=== PATIENT | female | born 1945 | race Caucasian/White ===

== ENCOUNTER → 2017-12-13 | Outpatient (REF) | payer MEDICARE, BC ==
[2017-12-13 19:11] LABS: APPEARANCE, URINE CLEAR (CLEAR); BACTERIA, URINE AUTO NEGATIVE (NEGATIVE); BILIRUBIN, URINE AUTO NEGATIVE (NEGATIVE); BLOOD, URINE BLOOD NEGATIVE (NEGATIVE); COLOR, URINE STRAW (YELLOW); GLUCOSE, URINE (UA) AUTO NEGATIVE (NEGATIVE); KETONE, URINE AUTO NEGATIVE (NEGATIVE); LEUKOCYTE ESTERASE, URINE AUTO NEGATIVE (NEGATIVE); MUCUS, URINE SMALL (NEGATIVE); NITRITE, URINE AUTO NEGATIVE (NEGATIVE); PROTEIN, URINE AUTO NEGATIVE (NEGATIVE); RBC, URINE AUTO 0 /HPF (0-3); SPECIFIC GRAVITY URINE AUTO 1.006 (1.002-1.035); SQUAMOUS EPITHELIAL CELL UR AU 0 /HPF (0-6); UROBILINOGEN, URINE AUTO 0.2 mg/dL (0.0-2.0); WBC, URINE AUTO 2 /HPF (0-3)
== END ==
LOC: M SMT 16:49
DX: N20.0 Calculus of kidney (principal)
CPT/HCPCS: 81001

== ENCOUNTER → 2018-01-08 | Outpatient (REF) | payer MEDICARE, BC, OTHER ==
[2018-01-08 18:50] LABS: APPEARANCE, URINE CLEAR (CLEAR); BACTERIA, URINE AUTO 1+ (NEGATIVE); BILIRUBIN, URINE AUTO NEGATIVE (NEGATIVE); BLOOD, URINE BLOOD NEGATIVE (NEGATIVE); COLOR, URINE STRAW (YELLOW); GLUCOSE, URINE (UA) AUTO NEGATIVE (NEGATIVE); KETONE, URINE AUTO NEGATIVE (NEGATIVE); LEUKOCYTE ESTERASE, URINE AUTO NEGATIVE (NEGATIVE); NITRITE, URINE AUTO NEGATIVE (NEGATIVE); PROTEIN, URINE AUTO NEGATIVE (NEGATIVE); RBC, URINE AUTO 0 /HPF (0-3); SPECIFIC GRAVITY URINE AUTO 1.003 (1.002-1.035); SQUAMOUS EPITHELIAL CELL UR AU 0 /HPF (0-6); UROBILINOGEN, URINE AUTO 0.2 mg/dL (0.0-2.0); WBC, URINE AUTO 2 /HPF (0-3)
== END ==
LOC: M SMT 17:11
DX: N20.0 Calculus of kidney (principal); R35.0 Frequency of micturition
CPT/HCPCS: 81001

== ENCOUNTER → 2018-01-14 | Outpatient (CLI) | payer MEDICARE, BC, OTHER | LOC: M RAD 13:35 | DX: N20.0 Calculus of kidney (principal) | CPT/HCPCS: 74176 ==

== ENCOUNTER 2018-03-07 10:49 | Day surgery (SDC) | payer MEDICARE, BC, OTHER ==
[2018-03-07] MEDS: LR 1,000 ML IV (11:50)
[2018-03-07] MEDS ORDERED: SCOPOLAMINE 1MG TRANSDERMAL PATCH As Ordered (12:04)
[2018-03-07] MEDS: SCOPOLAMINE 1MG TRANSDERMAL PATCH TOP (12:08)
[2018-03-07] MEDS ORDERED: CONRAY-60 60% 50ML VIAL (Q9961) As Ordered (12:41)
[2018-03-07] MEDS: CLINDAMYCIN 900 MG in APPROPRIATE DILUENT 1 EA IV (13:09)
[2018-03-07] MEDS ORDERED: GLYCOPYRROLATE INJ 0.2 MG/ML 2 ML VIAL As Ordered (13:10)
[2018-03-07] MEDS ORDERED: ePHEDrine SULFATE 25 MG/5 ML(5MG/ML) SYRINGE As Ordered (13:13)
[2018-03-07] MEDS ORDERED: ONDANSETRON 4MG/2ML VIAL (J2405) As Ordered ×2 (13:14→13:27)
[2018-03-07] MEDS ORDERED: dexameTHASONE 4 MG/ML 1ML VIAL (J1100) As Ordered (13:27)
[2018-03-07] MEDS ORDERED: MIDAZOLAM INJ 2 MG/2 ML VIAL (J2250) As Ordered (13:27)
[2018-03-07] MEDS ORDERED: LIDOCAINE 2% INJ 100 MG/5 ML SDV (FOR ANES.) As Ordered (13:27)
[2018-03-07] MEDS ORDERED: PROPOFOL 200 MG/20 ML VIAL As Ordered (13:27)
[2018-03-07] MEDS ORDERED: fentaNYL 100 MCG/2 ML INJECTION (J3010) As Ordered (13:27)
[2018-03-07] MEDS: oxyBUTYnin 5 MG TAB PO (14:29)
[2018-03-07] MEDS ORDERED: PERCOCET 5MG/325MG TAB PO ×3 (14:30)
[2018-03-07] MEDS ORDERED: HYDROMORPHONE HCL 0.5 MG/ 0.5 ML SYRINGE (J1170 PER 1) IV (14:30)
[2018-03-07] MEDS ORDERED: ONDANSETRON 4MG/2ML VIAL (J2405) IV (14:30)
[2018-03-07] MEDS ORDERED: LR 1,000 ML IV (14:30)
[2018-03-07] MEDS ORDERED: fentaNYL 100 MCG/2 ML INJECTION (J3010) IV (14:30)
== END 2018-03-07 16:50 | disposition home or self-care (01) ==
LOC: M SDC 10:49
DX: N20.0 Calculus of kidney (principal); N13.1 Hydronephrosis with ureteral stricture, not elsewhere classified; I25.10 Atherosclerotic heart disease of native coronary artery without angina pectoris; I10 Essential (primary) hypertension; Z98.61 Coronary angioplasty status; G47.30 Sleep apnea, unspecified; Z79.82 Long term (current) use of aspirin; Z79.899 Other long term (current) drug therapy
CPT/HCPCS: 52352

== ENCOUNTER → 2021-02-03 | Outpatient (CLI) | payer MEDICARE, BC, OTHER ==
[~2021-02-03] MED LIST: ASPI81TA86 PO; DRIS50003 PO; FLOM0.4C39 PO; HYDR-3490 PO; ISOVUE-370 76% 100ML VIAL As Ordered ONE; LOVA1CAP17 PO; METO1TAB87 PO; OMEP-218 PO; OSTETAB4 PO; SIMV20TA22 PO; VITA500C24 PO
--- NOTE | 2021-02-04 19:57 | REPVR ---
PROCEDURE INFORMATION: Exam: CT Maxillofacial With Contrast, Sinus Exam date and time: 02/03/2021 11:25 AM Age: 75 years old Clinical indication: Condition or disease; Other: Mass; Additional info: Nasal pharyngeal mass TECHNIQUE: Imaging protocol: CT Maxillofacial with intravenous contrast. Focus on the sinuses. Radiation optimization: All CT scans at this facility use at least one of these dose optimization techniques: automated exposure control; mA and/or kV adjustment per patient size (includes targeted exams where dose is matched to clinical indication); or iterative reconstruction. Contrast material: ISOVUE 370; Contrast volume: 75 ml; Contrast route: INTRAVENOUS (IV); COMPARISON: No relevant prior studies available. FINDINGS: Frontal sinuses: Normal. No air-fluid levels. Ethmoid air cells: Minimal ethmoid sinus mucosal thickening. Sphenoid sinuses: Normal. No air-fluid levels. Maxillary sinuses: Minimal bilateral maxillary sinus mucosal thickening, right greater than left. Nasal cavity/Septum: Mild deviation of the nasal septum to the left centered in the midportion with small osseous spur at the apex there is near complete if not complete blockage of the right posterior nasal passageway. The left nasal passageway remains patent. Patent ostiomeatal complexes bilaterally. Orbital cavity: Orbits are normal. Globes are unremarkable. Bones/joints: Unremarkable. Soft tissues: Unremarkable. Auditory system: Partial opacification of the right middle ear cavity. Mastoid air cells: Opacification of many right mastoid air cells. Oropharynx: Large nasopharyngeal mass which extends just into the right oropharynx with some thickening and extension into the right aspect of the soft palate. There is retropharyngeal extension across midline. There is mild displacement of the airway to the left and some anterior extension into the posterior aspect of the right nasal passageway and to a lesser degree the left. Brain: The mass measures approximately 3.4 x 6.0 x 3.5 cm and is centered to the right. Vasculature: There is encasement of the distal extracranial right internal carotid artery. The left internal carotid artery extends along the margin of the mass. IMPRESSION: 1. 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 There is anterior extension into the nasal passageway is, right greater than left and retropharyngeal extension across midline to the left. There is extension into the right aspect of the soft palate and just into the cephalad aspect of the oropharynx on the right. 2. Opacification of right mastoid air cells and partial opacification of the right middle ear cavity which is likely related to involvement of the eustachian tube. There is near complete if not complete obstruction of the posterior right nasal passageway. 3. Minimal bilateral maxillary and ethmoid sinus disease. Electronically signed by: Ar Ahn On 02/04/2021 19:57:25 PM
== END ==
LOC: M RAD 10:31
PROVIDERS: ATTEND Otolaryngology
DX: J34.9 Unspecified disorder of nose and nasal sinuses (principal)
CPT/HCPCS: 70487; Q9967

== ENCOUNTER → 2021-02-08 | Outpatient (CLI) | payer MEDICARE, BC, OTHER ==
[~2021-02-08] MED LIST changes: -ISOVUE-370 76% 100ML VIAL As Ordered ONE
== END ==
LOC: M LABSMTC 11:45
PROVIDERS: ATTEND Anesthesiology
DX: Z01.812 Encounter for preprocedural laboratory examination (principal)

== ENCOUNTER 2021-02-10 11:43 | Observation (INO) | payer MEDICARE, BC, OTHER ==
[~2021-02-10] VITALS: Ht 157.5 cm; Wt 64.0 kg
[~2021-02-10 11:43] MED LIST changes: +PROBCAP14 PO
[2021-02-10] MEDS ORDERED: HYDR-3713 PO (12:01)
[2021-02-10 12:42] LABS: BASO % 0.6 % (0.0-1.0); EOS # 0.1 10^3/uL (0.0-0.5); HEMATOCRIT 39.2 % (36.0-47.0); HEMOGLOBIN 13.5 g/dl (12.0-15.5); LYMPH # 1.6 10^3/uL (1.5-5.0); LYMPH % 32.5 % (24.0-44.0); MEAN CORPUSCULAR HEMOGLOBIN 31.9 pg (27.0-33.0); MEAN CORPUSCULAR HGB CONC 34.4 g/dl (32.0-36.5); MEAN CORPUSCULAR VOLUME 92.7 fl (80.0-96.0); MONO # 0.5 10^3/uL (0.0-0.8); MONO % 9.8 % (2.0-8.0); NEUTROPHILS # 2.7 10^3/uL (1.5-8.5); NEUTROPHILS % 55.9 % (36.0-66.0); PLATELET COUNT, AUTOMATED 290 10^3/uL (150-450); RED BLOOD COUNT 4.23 10^6/uL (4.00-5.40); WHITE BLOOD COUNT 4.8 10^3/uL (4.0-10.0)
[2021-02-10] MEDS ORDERED: ONDANSETRON 4MG/2ML VIAL IV ONE (12:50)
[2021-02-10 13:05] LABS: ERYTHROCYTE SEDIMENTATION RATE 35 mm/hr (0-30)
[2021-02-10] MEDS: MORPHINE 2 MG/ML 1ML VIAL (J2270) IV ONE ×2 (13:05→13:18)
[2021-02-10 13:13] LABS: ALBUMIN 3.8 GM/DL (3.2-5.2); ALT/SGPT 20 U/L (12-78); BILIRUBIN,DIRECT 0.2 MG/DL (0.0-0.2); C REACTIVE PROTEIN QUANTITATIV < 0.30 MG/DL (0.00-0.30); MAGNESIUM LEVEL 2.2 MG/DL (1.8-2.4); TOTAL PROTEIN 7.5 GM/DL (6.4-8.2)
[2021-02-10] MEDS ORDERED: fentaNYL 100 MCG/2 ML INJECTION (J3010) IV ONE (13:25)
[2021-02-10 14:26] LABS: BLOOD UREA NITROGEN 13 MG/DL (7-18); CALCIUM LEVEL 8.8 MG/DL (8.8-10.2); CARBON DIOXIDE LEVEL 29 MEQ/L (21-32); CHLORIDE LEVEL 98 MEQ/L (98-107); CREATININE FOR GFR 0.53 MG/DL (0.55-1.30); GLOMERULAR FILTRATION RATE > 60.0 (>39); GLUCOSE, FASTING 109 MG/DL (70-100); POTASSIUM SERUM 3.6 MEQ/L (3.5-5.1); SODIUM LEVEL 132 MEQ/L (136-145)
[2021-02-10] MEDS ORDERED: ASPI81TA26 PO (14:53)
[2021-02-10] MEDS ORDERED: GLUC1TAB58 PO (14:53)
[2021-02-10] MEDS ORDERED: OMEG1CAP85 PO (14:53)
[2021-02-10] MEDS ORDERED: ERGO500029 PO (14:53)
[2021-02-10] MEDS ORDERED: ACETAMINOPHEN TAB 650MG DOSE (2X325MG) PO PRN (15:10)
[2021-02-10] MEDS ORDERED: PILL CUTTER 1 EACH XX PRN (16:10)
[2021-02-10] MEDS ORDERED: ONDANSETRON 4 MG ORAL DISINTEGRATING TAB PO PRN (16:40)
[2021-02-10 17:15] VITALS: BP 119/80
[2021-02-10] MEDS: traMADol 50 MG TAB PO SCH ×2 (18:03→20:43)
--- NOTE | 2021-02-10 18:03 | HPEPDOC ---
General Date of Admission Feb 10, 2021 at 11:44 Date of Service: Feb 10, 2021 Chief Complaint The patient is a 75-year-old female admitted with a reason for visit of Itractable Pain,Nasopharyngeal Mass. Source: Patient, RN/MD History of Present Illness 75-year-old female with past medical history of coronary artery disease status post bypass surgery, carotid artery disease, status post carotid endarterectomy on the right. Left breast cancer status post bilateral mastectomy, hypertension, IVANA was recently diagnosed with large nasopharyngeal mass in the beginning of January 2021 and is planned for biopsy of the mass on 02/13/[address] Silvestre brennan in ENT, presented today for throbbing headache and pain in the back of the nose. Pain was dull, throbbing in nature, 10 x 10 in intensity, radiating to the right ear and more towards the right nose. She was taking hydrocodone for pain for the past 2 days had taken 5 doses, but from last night she was very nauseous and was vomiting all night and could not keep her pain medications down, so came to the emergency room for uncontrolled pain and to get some alternative medications for pain relief. Patient was discussed with ENT. Pain control medications. She did not include any NSAIDs because he couldn't risk the chance of bleeding during the biopsy. Patient responded well to a fentanyl injection in the ED, patient is being admitted for observation and trial of alternative pain medications along with antiemetics. Home Medications Scheduled Ascorbic Acid (Vitamin C) 500 Mg Cap, 500 MG PO DAILY, (Reported) Aspirin (Aspirin EC) 81 Mg Tablet.dr, 81 MG PO DAILY, (Reported) Ergocalciferol (Vitamin D2) (Vitamin D2) 50,000 Units Cap, 50,000 UNITS PO QMONTH, (Reported) 1ST OF THE MONTH Glucosamine/D3/Boswellia Alison (Osteo Bi-Flex Tablet) 1 Each Tablet, 1 TAB PO BID, (Reported) Hydrochlorothiazide (Hydrochlorothiazide) 25 Mg Tab, 25 MG PO DAILY, (Reported) Lactobacillus Acidophilus (Probiotic) 1 Each Capsule, 2 CAP PO DAILY, (Reported) Metoprolol Tartrate (Metoprolol Tartrate) 25 Mg Tab, 25 MG PO BID, (Reported) Stephenson-3 Acid Ethyl Esters (Stephenson-3 Acid Ethyl Esters) 1 Gm Capsule, 2 GM PO BID, (Reported) Omeprazole (Omeprazole) 20 Mg Cap, 20 MG PO 4XWK, (Reported) MON,WED,FRI,SAT Simvastatin (Simvastatin) 20 Mg Tab, 20 MG PO QPM, (Reported) Scheduled PRN Hydrocodone/Acetaminophen (Hydrocodone-Acetamin 5-325 mg) 1 Each Tablet, 1 TAB PO Q6HP PRN for pain, (Reported) Allergies Coded Allergies: Penicillins (Verified Allergy, Intermediate, RASH, 02/10/21) Past Medical History Medical History 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 EUSTACHIANCTUBE< OROPHARYNX PLANNED FOR BX ON 02/13/21 LEFT BREAST CANCER S/P DOUBLE MASTECTOMY CAD s/p CABG CAROTID ARTERY DISEASE S/P RT CAROTID ENDARTERECTOMY MODERATE RIGHT HYDRONEPHROSIS HEMATURIA MICROSCOPIC s/p cystoscopy BROKE LEFT FOOT 1998 BROKE RIGHT SHOULDER/RIGHT PINKY 2009 TUBULAR ADENOMA Of COLON PULMONARY FIBROSIS SLEEP APNEA = CPAP FX LOWER BACK 2013 KIDNEY STONES/ RT URETERAL STONE S/PCystoscopy, right ureteroscopy with basket extraction of stone, right ureteral stent placement 2018 Surgical History DOUBLE MASTECTOMY TRIPLE BYPASS 03/2008 CAROTID ENDARTERECTOMY R SIDE 02/2009 BILATERAL CATARACT 11/2010 COLONOSCOPY AND BX 02/2015 Family History Significant Family History: Cancer, Heart disease, Renal disease FATHER: 45 YRS, BRAIN TUMOR, STROKE MOTHER: 73 YRS, HEART RELATED (BROTHER HAJA): 55YRS OLD, BYPASS SX, DM AND KIDNEY CA (BROTHER THAO): HEART TRANSPLANT AT 54, BRAIN TUMOR=RADIATION TREATMENT. PROSTATE CA, LYMPH NODE CA. (BROTHER RIKKI): BYPASS AT 50, STROKE X2, CAROTID ARTERY SX, COPD.PASSED AT 60YRS (BROTHER ÁLVARO); BYPASS, NEEDED KIDNEY AND LIVER TRANSPLANT, AT 51YRS. ( BROTHER ROSSY); AT 50 HEART PROBLEMS. (SISTER ABBIE); BYPASS, CHF, STROKE, AT 65YRS (SISTER JULIO): PARKINSONS, PASSED AT 74 SUDDENLY, NO AUTOPSY. SON(S): ALIVE, (THAO): QUADRUPLE BY-PASS PATERNAL GRAND MOTHER: 69 YRS, STROKE MATERNAL GRAND MOTHER: 65 YRS, DM Social History * Smoker: non-smoker Alcohol: rarely Drugs: denies A-FIB/CHADSVASC A-FIB History Current/History of A-Fib/PAF?: No Review of Systems Constitutional: Denies: Chills, Fever, Night Sweats Eyes: Denies: Pain, Vision change ENT: Reports: Head Aches, Ear Pain, Sinus Congestion Skin: Denies: Rash, Lesions, Breakdown Pulmonary: Denies: Dyspnea, Cough Cardiovascular: Denies: Chest Pain, Palpitations, Orthopnea, Paroxysmal Noc. Dyspnea, Lt Headedness Gastrointestinal: Reports: Nausea, Vomiting Genitourinary: Denies: Dysuria, Frequency, Incontinence, Retention Hematologic: Denies: Bruising, Bleeding Excessively Physical Examination General Exam: Positive: Alert, Cooperative, No Acute Distress Eye Exam: Positive: PERRLA, Conjunctiva & lids normal, EOMI; Negative: Sclera icteric Neck Exam: Positive: Supple; Negative: JVD, thyromegaly Chest Exam: Positive: Clear to auscultation, Normal air movement Heart Exam: Positive: Bradycardic, Regular Rhythm, Normal S1, Normal S2; Negative: Murmurs, Rubs Telemetry: Positive: Sinus, Bradycardia Abdomen Exam: Positive: Normal bowel sounds, Soft; Negative: Tenderness, Hepatospenomegaly Extremity Exam: Negative: Clubbing, Cyanosis, Edema Skin Exam: Positive: Nl turgor and temperature; Negative: Breakdown, Lesion Vital Signs Vital Signs Date Time Temp Pulse Resp B/P (MAP) Pulse Ox O2 Delivery O2 Flow Rate FiO2 02/10/21 17:15 97.4 56 15 119/80 (93) 98 Room Air Laboratory Data Labs 24H Laboratory Tests 2 02/10/21 12:05: Immature Granulocyte % (Auto) 0.2, Neutrophils (%) (Auto) 55.9, Lymphocytes (%) (Auto) 32.5, Monocytes (%) (Auto) 9.8H, Eosinophils (%) (Auto) 1.0, Basophils (%) (Auto) 0.6, Neutrophils # (Auto) 2.7, Lymphocytes # (Auto) 1.6, Monocytes # (Auto) 0.5, Eosinophils # (Auto) 0.1, Basophils # (Auto) 0.0, Nucleated Red Blood Cells % (auto) 0.0, Erythrocyte Sedimentation Rate 35H, Anion Gap 5L, Glomerular Filtration Rate > 60.0, Calcium Level 8.8, Magnesium Level 2.2, Total Bilirubin 1.0, Direct Bilirubin 0.2, Aspartate Amino Transf (AST/SGOT) 17, Alanine Aminotransferase (ALT/SGPT) 20, Alkaline Phosphatase 67, C-Reactive Protein, Quantitative < 0.30, Total Protein 7.5, Albumin 3.8, Albumin/Globulin Ratio 1.0L CBC/BMP Laboratory Tests 02/10/21 12:05 Assessment/Plan 75-year-old female with past medical history of coronary artery disease status post bypass surgery, carotid artery disease, status post carotid endarterectomy on the right. Left breast cancer status post bilateral mastectomy, hypertension, IVANA was recently diagnosed with large nasopharyngeal mass in the beginning of January 2021 and is planned for biopsy of the mass on 02/13/[address] Silvestre brennan in ENT, presented today for throbbing headache and pain in the back of the nose. Pain was dull, throbbing in nature, 10 x 10 in intensity, radiating to the right ear and more towards the right nose. She was taking hydrocodone for pain for the past 2 days had taken 5 doses, but from last night she was very nauseous and was vomiting all night and could not keep her pain medications down, so came to the emergency room for uncontrolled pain and to get some alternative medications for pain relief. Patient was discussed with ENT. Pain control medications. She did not include any NSAIDs because he couldn't risk the chance of bleeding during the biopsy. Patient responded well to a fentanyl injection in the ED, patient is being admitted for observation and trial of alternative pain medications along with antiemetics. Nasopharyngeal tumor with uncontrolled pain Pain control with the tramadol, Tylenol No. 3, and Tylenol Zofran for nausea CAD and carotid artery disease aspirin held for biopsy Will hold metoprolol as she is bradycardic to 40s Hypertension Continue hydrochlorothiazide GERD omeprazole Chronic constipation Senokot-S Plan / VTE VTE Prophylaxis Ordered?: Yes DIANE NARANJO MD Feb 10, 2021 18:03
[2021-02-10] MEDS: SENOKOT S TAB PO SCH (20:42)
[2021-02-10 21:00] VITALS: O2SAT 96
[2021-02-10] MEDS ORDERED: SIMVASTATIN 20 MG TAB PO SCH (21:00)
[2021-02-10 21:24] VITALS: BP 171/81
[2021-02-11] MEDS: ACETAMINOPH W/CODEINE #3 TAB UD PO PRN ×3 (00:31→12:21)
[2021-02-11 06:35] VITALS: BP 122/68
--- NOTE | 2021-02-11 06:50 | ECGEPIP ---
[facility] - ED Test Date: 2021-02-10 Pat Name: VANNESA EDWARDS Department: Room: - Gender: Female Last Repairer: : 1945 Requested By: Devonte Wing Order Number: [id number] Reading MD: Pablito Murphy Measurements Intervals Norris Rate: 56 P: 10 OK: 206 QRS: -30 QRSD: 132 T: 31 QT: 432 QTc: 416 Interpretive Statements Sinus bradycardia with premature atrial complexes Left axis deviation Left ventricular hypertrophy with QRS widening Comparison tracing not on file Electronically Signed on 02-11-2021 6:50:11 EDT by Pablito Murphy
--- NOTE | 2021-02-11 06:53 | ECGEPIP ---
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
[2021-02-11] MEDS: traMADol 50 MG TAB PO SCH (07:59)
[2021-02-11] MEDS ORDERED: MIRALAX *UNIT DOSE* 17GM PACKET PO SCH (09:00)
[2021-02-11] MEDS ORDERED: OMEPRAZOLE 20 MG CAP PO SCH (09:00)
[2021-02-11 09:05] VITALS: BP 120/70
[2021-02-11] MEDS: SENOKOT S TAB PO SCH (10:17)
[2021-02-11] MEDS ORDERED: ACET-716 PO (11:41)
[2021-02-11] MEDS ORDERED: METO1TAB87 PO (11:41)
[2021-02-11] MEDS ORDERED: TRAM50TA2 PO (11:46)
[2021-02-11] MEDS ORDERED: ONDA4TAB6 PO (13:12)
--- NOTE | 2021-02-11 13:13 | IPNPDOC ---
Subjective Date Seen The patient was seen on 02/11/21. Subjective Chief Complaint/HPI Pain was well controlled with tylenol # 3 and tramadol. Did not have any nausea or vomiting after these medications. Feels ok to go home. Objective Physical Examination General Exam: Positive: Alert, Cooperative, No Acute Distress Eye Exam: Positive: PERRLA, Conjunctiva & lids normal, EOMI; Negative: Sclera icteric Neck Exam: Positive: Supple; Negative: JVD, thyromegaly Chest Exam: Positive: Clear to auscultation, Normal air movement Heart Exam: Positive: Bradycardic, Regular Rhythm, Normal S1, Normal S2; Negative: Murmurs, Rubs Telemetry: Positive: Sinus, Bradycardia Abdomen Exam: Positive: Normal bowel sounds, Soft; Negative: Tenderness, Hepatospenomegaly Extremity Exam: Negative: Clubbing, Cyanosis, Edema Skin Exam: Positive: Nl turgor and temperature; Negative: Breakdown, Lesion Assessment /Plan Assessment 75-year-old female with past medical history of coronary artery disease status post bypass surgery, carotid artery disease, status post carotid endarterectomy on the right. Left breast cancer status post bilateral mastectomy, hypertension, IVANA was recently diagnosed with large nasopharyngeal mass in the beginning of January 2021 and is planned for biopsy of the mass on 02/13/[address] Silvestre brennan in ENT, presented today for throbbing headache and pain in the back of the nose. Pain was dull, throbbing in nature, 10 x 10 in intensity, radiating to the right ear and more towards the right nose. She was taking hydrocodone for pain for the past 2 days had taken 5 doses, but from last night she was very nauseous and was vomiting all night and could not keep her pain medications down, so came to the emergency room for uncontrolled pain and to get some alternative medications for pain relief. Patient was discussed with ENT. Pain control medications. She did not include any NSAIDs because he couldn't risk the chance of bleeding during the biopsy. Patient responded well to a fentanyl injection in the ED, patient is being admitted for observation and trial of alternative pain medications along with antiemetics. Nasopharyngeal tumor with uncontrolled pain Pain control with the tramadol, Tylenol No. 3, and Tylenol Zofran for nausea CAD and carotid artery disease aspirin held for biopsy metoprolol dos reduced to 12.5 bid due to sinus bradycardia noted in hospital. Hypertension Continue hydrochlorothiazide GERD omeprazole Chronic constipation Senokot-S Dispo: home. Plan/VTE VTE Prophylaxis Ordered?: Yes VS, I&O, 24H, Fishbone Vital Signs/I&O Vital Signs Date Time Temp Pulse Resp B/P (MAP) Pulse Ox O2 Delivery O2 Flow Rate FiO2 02/11/21 12:21 16 02/11/21 09:05 97.7 52 120/70 (87) 98 Room Air I&O- Last 24 Hours up to 6 AM 02/11/21 06:00 Intake Total 390 ml Output Total 200 ml Balance 190 ml DIANE NARANJO MD Feb 11, 2021 13:13
[2021-02-11] MEDS ORDERED: traMADol 50 MG TAB PO SCH (16:00)
== END 2021-02-11 12:40 | disposition home or self-care (01) ==
LOC: M ED 11:43 → M ED INP 11:44 → M MS5PR 12:40 → ENRESERV 15:27 → M MS5PR 17:02
PROVIDERS: ADMIT Internal Medicine Nephrology; ATTEND Internal Medicine Nephrology
DX: G89.29 Other chronic pain (principal); J34.9 Unspecified disorder of nose and nasal sinuses; K21.9 Gastro-esophageal reflux disease without esophagitis; I25.10 Atherosclerotic heart disease of native coronary artery without angina pectoris; Z95.1 Presence of aortocoronary bypass graft; Z85.3 Personal history of malignant neoplasm of breast; K59.00 Constipation, unspecified; I10 Essential (primary) hypertension; G47.33 Obstructive sleep apnea (adult) (pediatric); Z79.82 Long term (current) use of aspirin; Z79.899 Other long term (current) drug therapy; Z88.0 Allergy status to penicillin
CPT/HCPCS: 80048; 80076; 83735; 85025; 85652; 86140; 93005; 96374; 96375; 99285; G0378; J2405; J3010

== ENCOUNTER 2021-02-13 06:57 | Day surgery (SDC) | payer MEDICARE, BC, OTHER ==
[~2021-02-13] VITALS: Ht 157.5 cm; Wt 62.8 kg
[~2021-02-13 06:57] MED LIST changes: +ACET-716 PO; +ASPI81TA26 PO; +ERGO500029 PO; +GLUC1TAB58 PO; +HYDR-3713 PO; +LR 1,000 ML IV ONE; +OMEG1CAP85 PO; +ONDA4TAB6 PO; +TRAM50TA2 PO
[2021-02-13] MEDS ORDERED: SCOPOLAMINE 1MG TRANSDERMAL PATCH TOP ONE (08:10)
[2021-02-13] MEDS ORDERED: CIPRODEX OTIC SUSP 7.5ML As Ordered ONE ×2 (08:40→11:32)
[2021-02-13] MEDS ORDERED: OXYMETAZOLINE 0.05% NASAL SPRAY (AFRIN) As Ordered ONE (08:41)
[2021-02-13] MEDS ORDERED: PHENYLEPHRINE 0.5% NASAL SPRAY 15 ML As Ordered ONE (08:42)
[2021-02-13] MEDS ORDERED: BUPIVACAINE/EPIN 0.5% 30 ML VIAL As Ordered ONE (08:42)
[2021-02-13] MEDS ORDERED: MIDAZOLAM INJ 2MG/2ML VIAL (J2250 PER 1MG) As Ordered ONE (08:57)
[2021-02-13] MEDS ORDERED: fentaNYL 100 MCG/2 ML INJECTION (J3010) As Ordered ONE (08:57)
[2021-02-13] MEDS ORDERED: LIDOCAINE 2% 100MG/5ML SDV (FOR ANES.) As Ordered ONE (08:57)
[2021-02-13] MEDS ORDERED: METOCLOPRAMIDE INJ 10MG/2ML VIAL (J2765 PER 1) As Ordered ONE (08:57)
[2021-02-13] MEDS ORDERED: dexameTHASONE 4 MG/ML 1ML VIAL (J1100 PER 1MG) As Ordered ONE (08:57)
[2021-02-13] MEDS ORDERED: propofoL 200 MG/20 ML VIAL As Ordered ONE (08:57)
[2021-02-13] MEDS ORDERED: ROCURONIUM BROMIDE 50 MG/5 ML VIAL As Ordered ONE (08:57)
[2021-02-13] MEDS ORDERED: ONDANSETRON 4MG/2ML VIAL As Ordered ONE (08:57)
[2021-02-13] MEDS ORDERED: SUGAMMADEX SODIUM 500 MG/5 ML VIAL (BRIDION) As Ordered ONE (08:57)
[2021-02-13] MEDS ORDERED: ePHEDrine SULFATE 25 MG/5 ML(5MG/ML) SYRINGE As Ordered ONE (09:12)
[2021-02-13] MEDS ORDERED: LIDOCAINE W/EPINEPHRINE 1% 20ML VIAL As Ordered ONE (09:27)
[2021-02-13] MEDS ORDERED: ACETAMINOPHEN 1000MG 100ML IV BTL (OFIRMEV) (J0131 PER 10MG) As Ordered ONE (09:33)
[2021-02-13] MEDS ORDERED: LR 1,000 ML IV SCH ×2 (10:35→11:35)
[2021-02-13] MEDS ORDERED: ONDANSETRON 4MG/2ML VIAL IV PRN (10:35)
[2021-02-13] MEDS ORDERED: PERCOCET 5MG/325MG TAB PO PRN (10:35)
[2021-02-13] MEDS ORDERED: METOCLOPRAMIDE INJ 10MG/2ML VIAL (J2765 PER 1) IV PRN (10:35)
[2021-02-13] MEDS: fentaNYL 100 MCG/2 ML INJECTION (J3010) IV PRN ×2 (10:44→11:03)
[2021-02-13 12:00] VITALS: BP 129/61
--- NOTE | 2021-02-13 12:57 | POST-OPPD ---
Postoperative Procedure Note Date Of Procedure: Feb 13, 2021 Time Of Procedure: 08:30 PREOPERATIVE DIAGNOSIS: [Nasopharyngeal mass, right serous otitis media] POSTOPERATIVE DIAGNOSIS: [Same] FINDINGS: [Same] PROCEDURE: [Endoscopic nasal pharyngoscopy and biopsy, right PE tube placement] SURGEON: Yousif] CRYPTOLOGIC TECHNICIAN OPERATOR/ANALYST: [None] ANESTHESIA: [Gen.] SPECIMENS: [Nasopharyngeal mass] ESTIMATED BLOOD LOSS: [10 mL's] REPLACED: [None] DRAINS: [None] COMPLICATIONS: [None] POSTOPERATIVE CONDITION: [Stable] Josue is a 75-year-old woman who was seen in the office and diagnosed with the above condition, decision was made in consultation with the patient after explanation of the risks and benefits to undergo the above-named procedure. She was admitted through same day surgery program and taken to the operating room where she was administered a general anesthetic via intravenous injection. She was then intubated endotracheally. She was draped in the usual fashion. The nose was decongested with Afrin on nasal pledgets. These were then removed. The 4 mm endoscope was inserted into the right nasal cavity and advanced to the posterior portion of the nose. There was a polypoid mass on the sphenoid rostrum medial portion of the septum and nasopharynx. Multiple biopsies were taken of this tissue. These were sent to the pathologist for frozen section, permanent section, and lymphoma protocol. Hemostasis was achieved with pledgets soaked in Afrin. These were removed. The scope was then placed on the left side of the nose and advanced to the nasopharyngeal area with the same mass was visualized. This mass extended to Rosenmller's fossa on this side. The scope was removed from the airway. The microscope was brought into position. A speculum was placed in the right ear. An incision was made in the anterior-inferior quadrant. A large amount of fluid was removed. PE tube was placed through the incision. 2 drops of Floxin were applied. Patient was then allowed to recover from anesthetic and taken to postanesthesia care in stable condition. There were no complications during this procedure. Pablito Hernandez MD Feb 13, 2021 12:57
== END 2021-02-13 12:23 | disposition home or self-care (01) ==
LOC: M SDC 06:57
PROVIDERS: ATTEND Otolaryngology
DX: C83.30 Diffuse large B-cell lymphoma, unspecified site (principal); H65.21 Chronic serous otitis media, right ear; I25.10 Atherosclerotic heart disease of native coronary artery without angina pectoris; G47.33 Obstructive sleep apnea (adult) (pediatric); E78.5 Hyperlipidemia, unspecified; Z85.3 Personal history of malignant neoplasm of breast; Z79.82 Long term (current) use of aspirin; Z79.899 Other long term (current) drug therapy; Z88.0 Allergy status to penicillin; K21.9 Gastro-esophageal reflux disease without esophagitis; M81.0 Age-related osteoporosis without current pathological fracture
CPT/HCPCS: 31535; 69436; 88300; 88305; 88331; J0131; J1100; J2250; J2405; J2765; J3010

== ENCOUNTER 2021-02-19 12:10 | Emergency (ER) | payer MEDICARE, BC, OTHER ==
[~2021-02-19] VITALS: Ht 157.5 cm; Wt 61.4 kg
[~2021-02-19 12:10] MED LIST changes: -LR 1,000 ML IV ONE
[2021-02-19] MEDS ORDERED: HYDR-3713 (12:19)
[2021-02-19] MEDS ORDERED: PERCOCET 5MG/325MG TAB PO ONE (13:25)
[2021-02-19] MEDS ORDERED: PROMETHAZINE 25MG SUPP PR ONE (13:25)
[2021-02-19] MEDS ORDERED: PROM1SUP2 PR (14:58)
[2021-02-19] MEDS ORDERED: PERC5TAB12 PO (14:58)
[2021-02-19 15:10] VITALS: BP 141/92
== END 2021-02-19 15:30 | disposition home or self-care (01) ==
LOC: M ED 12:10
DX: J39.8 Other specified diseases of upper respiratory tract (principal); Z79.82 Long term (current) use of aspirin; Z79.899 Other long term (current) drug therapy; Z90.13 Acquired absence of bilateral breasts and nipples; Z88.0 Allergy status to penicillin

== ENCOUNTER 2021-02-21 17:27 | Inpatient (IN) | payer MEDICARE, BC, OTHER ==
[~2021-02-21] VITALS: Ht 162.6 cm; Wt 62.7 kg
[~2021-02-21 17:27] MED LIST changes: +HYDR-3713; +PERC5TAB12 PO; +PROM1SUP2 PR
[2021-02-21] MEDS ORDERED: MORPHINE 4 MG/ML 1ML VIAL/SYRINGE (J2270) IV ONE (18:20)
[2021-02-21] MEDS ORDERED: NS 1,000 ML IV ONE (18:20)
[2021-02-21 18:52] LABS: BASO % 0.7 % (0.0-1.0); EOS # 0.2 10^3/uL (0.0-0.5); EOS % 2.6 % (0.0-3.0); HEMOGLOBIN 14.3 g/dl (12.0-15.5); LYMPH # 1.9 10^3/uL (1.5-5.0); LYMPH % 32.8 % (24.0-44.0); MEAN CORPUSCULAR HEMOGLOBIN 31.9 pg (27.0-33.0); MEAN CORPUSCULAR HGB CONC 34.9 g/dl (32.0-36.5); MEAN CORPUSCULAR VOLUME 91.5 fl (80.0-96.0); MONO # 0.9 10^3/uL (0.0-0.8); MONO % 15.6 % (2.0-8.0); NEUTROPHILS # 2.8 10^3/uL (1.5-8.5); NEUTROPHILS % 48.1 % (36.0-66.0); PLATELET COUNT, AUTOMATED 373 10^3/uL (150-450); RED BLOOD COUNT 4.48 10^6/uL (4.00-5.40); WHITE BLOOD COUNT 5.8 10^3/uL (4.0-10.0)
[2021-02-21 19:10] LABS: ERYTHROCYTE SEDIMENTATION RATE 36 mm/hr (0-30)
[2021-02-21 19:29] LABS: ALBUMIN 3.6 GM/DL (3.2-5.2); ALT/SGPT 21 U/L (12-78); BILIRUBIN,DIRECT 0.1 MG/DL (0.0-0.2); BLOOD UREA NITROGEN 9 MG/DL (7-18); CALCIUM LEVEL 9.1 MG/DL (8.8-10.2); CARBON DIOXIDE LEVEL 27 MEQ/L (21-32); CHLORIDE LEVEL 92 MEQ/L (98-107); CREATININE FOR GFR 0.63 MG/DL (0.55-1.30); GLOMERULAR FILTRATION RATE > 60.0 (>39); GLUCOSE, FASTING 93 MG/DL (70-100); POTASSIUM SERUM 4.4 MEQ/L (3.5-5.1); SODIUM LEVEL 130 MEQ/L (136-145); TOTAL PROTEIN 8.2 GM/DL (6.4-8.2)
[2021-02-21] MEDS ORDERED: METOPROLOL TART 25 MG TABLET PO SCH (21:00)
[2021-02-21] MEDS ORDERED: ONDANSETRON 4 MG TAB PO PRN (21:30)
[2021-02-21] MEDS ORDERED: PERCOCET 5MG/325MG TAB PO PRN (21:30)
[2021-02-21] MEDS ORDERED: HYDROmorphone 2 MG TAB PO PRN (21:30)
[2021-02-21] MEDS ORDERED: ACETAMINOPHEN TAB 650MG DOSE (2X325MG) PO PRN (21:30)
[2021-02-21] MEDS ORDERED: MORPHINE 2 MG/ML 1ML VIAL (J2270) IV PRN (21:30)
[2021-02-21 22:20] LABS: RSV AMPLIFICATION NEGATIVE (NEGATIVE)
[2021-02-21] MEDS ORDERED: ASCO500T PO (22:58)
[2021-02-21] MEDS ORDERED: OXYC1TAB23 PO (22:58)
[2021-02-21] MEDS ORDERED: PROM25SU3 PR (22:58)
[2021-02-21] MEDS ORDERED: METO1TAB87 PO (22:58)
[2021-02-21 23:18] VITALS: BP 165/80
[2021-02-21] MEDS: ONDANSETRON 4MG/2ML VIAL IV PRN (23:48)
[2021-02-22] MEDS: SIMVASTATIN 20 MG TAB PO SCH ×2 (01:59→20:09)
[2021-02-22] MEDS: ONDANSETRON 4MG/2ML VIAL IV PRN (05:33)
--- NOTE | 2021-02-22 05:46 | HPEPDOC ---
General Date of Admission Feb 21, 2021 at 17:28 Date of Service: Feb 22, 2021 Chief Complaint The patient is a 75-year-old female admitted with a reason for visit of Intractable Pain, Nasopharyngeal Mass. Source: Patient History of Present Illness Patient is 75-year-old female with past medical history of coronary artery disease status post bypass surgery, carotid artery disease, status post carotid endarterectomy on the right. 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 Patient stated that he will bring became progressively worse for past week and became intolerable. In the ER patient was found to have no fever, no leukocytosis, sodium 130. On CT scan which was done on 02/03/2021 showed Large nasopharyngeal mass centered to the right measuring approximately 3.4 x 6.0 x 3.5 cm. There is anterior extension into the nasal passageway is, right greater than left and retropharyngeal extension across midline to the left. Dr Verdugo was contacted by ER, he recommended admission and pain management Home Medications Scheduled Ascorbic Acid (Ascorbic Acid) 500 Mg Tablet, 500 MG PO DAILY, (Reported) Aspirin (Aspirin EC) 81 Mg Tablet.dr, 81 MG PO DAILY, (Reported) Ergocalciferol (Vitamin D2) (Vitamin D2) 50,000 Units Cap, 50,000 UNITS PO QMONTH, (Reported) 1ST OF THE MONTH Glucosamine/D3/Boswellia Alison (Osteo Bi-Flex Tablet) 1 Each Tablet, 1 TAB PO BID, (Reported) Hydrochlorothiazide (Hydrochlorothiazide) 25 Mg Tab, 25 MG PO DAILY, (Reported) Lactobacillus Acidophilus (Probiotic) 1 Each Capsule, 2 CAP PO QHS, (Reported) Metoprolol Tartrate (Metoprolol Tartrate) 25 Mg Tablet, 12.5 MG PO BID, (Reported) [place]-3 Acid Ethyl Esters ([place]-3 Acid Ethyl Esters) 1 Gm Capsule, 2 GM PO BID, (Reported) Omeprazole (Omeprazole) 20 Mg Cap, 20 MG PO 4XWK, (Reported) MON,WED,FRI,SAT Simvastatin (Simvastatin) 20 Mg Tab, 20 MG PO QHS, (Reported) Scheduled PRN Oxycodone HCl/Acetaminophen (Oxycodone-Acetaminophen 5-325) 1 Each Tablet, 1 TAB PO Q6H PRN for MODERATE/SEVERE PAIN (PS 5-10), (Reported) Promethazine HCl (Promethegan) 25 Mg Supp.rect, 25 MG [place] Q6H PRN for NAUSEA, (Reported) Allergies Coded Allergies: Penicillins (Verified Allergy, Intermediate, RASH, 02/13/21) Past Medical History Medical History 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 EUSTACHIANCTUBE< OROPHARYNX PLANNED FOR BX ON 02/13/21 LEFT BREAST CANCER S/P DOUBLE MASTECTOMY CAD s/p CABG CAROTID ARTERY DISEASE S/P RT CAROTID ENDARTERECTOMY MODERATE RIGHT HYDRONEPHROSIS HEMATURIA MICROSCOPIC s/p cystoscopy BROKE LEFT FOOT 1998 BROKE RIGHT SHOULDER/RIGHT PINKY 2009 TUBULAR ADENOMA Of COLON PULMONARY FIBROSIS SLEEP APNEA = CPAP FX LOWER BACK 2013 KIDNEY STONES/ RT URETERAL STONE S/PCystoscopy, right ureteroscopy with basket extraction of stone, right ureteral stent placement 2018 Surgical History Surgical History DOUBLE MASTECTOMY TRIPLE BYPASS 03/2008 CAROTID ENDARTERECTOMY R SIDE 02/2009 BILATERAL CATARACT 11/2010 COLONOSCOPY AND BX 02/2015 Social History * Smoker: former Smoker Alcohol: Denies Drugs: denies A-FIB/CHADSVASC A-FIB History Current/History of A-Fib/PAF?: No Current PO Anticoag Therapy: No Review of Systems Constitutional: Denies: Chills Eyes: Denies: Pain ENT: Reports: Head Aches Skin: Denies: Rash, Lesions Pulmonary: Denies: Dyspnea Cardiovascular: Denies: Chest Pain Gastrointestinal: Reports: Nausea Genitourinary: Denies: Dysuria, Frequency Hematologic: Denies: Bruising Endocrine: Denies: Polydipsia, Polyphagia Musculoskeletal: Denies: Neck Pain Neurological: Denies: Weakness Psych: Reports: Mood Normal Physical Examination General Exam: Positive: Alert ENT Exam: Positive: Atraumatic, Other ENT (Right facial tenderness and enlargement) Neck Exam: Positive: Supple Chest Exam: Positive: Clear to auscultation Heart Exam: Positive: Rate Normal Telemetry: Positive: No significant arrhythmia Abdomen Exam: Positive: Normal bowel sounds Extremity Exam: Negative: Clubbing Skin Exam: Positive: Nl turgor and temperature Neuro Exam: Positive: Normal Gait Psych Exam: Positive: Mental status NL Vital Signs Vital Signs Date Time Temp Pulse Resp B/P (MAP) Pulse Ox O2 Delivery O2 Flow Rate FiO2 02/22/21 05:31 18 Room Air 02/22/21 01:59 95 02/21/21 23:18 97.2 57 165/80 (108) Laboratory Data Labs 24H Laboratory Tests 2 02/21/21 18:18: Immature Granulocyte % (Auto) 0.2, Neutrophils (%) (Auto) 48.1, Lymphocytes (%) (Auto) 32.8, Monocytes (%) (Auto) 15.6H, Eosinophils (%) (Auto) 2.6, Basophils (%) (Auto) 0.7, Neutrophils # (Auto) 2.8, Lymphocytes # (Auto) 1.9, Monocytes # (Auto) 0.9H, Eosinophils # (Auto) 0.2, Basophils # (Auto) 0.0, Nucleated Red Blood Cells % (auto) 0.0, Erythrocyte Sedimentation Rate 36H, Anion Gap 11, Glomerular Filtration Rate > 60.0, Calcium Level 9.1, Total Bilirubin 1.0, Direct Bilirubin 0.1, Aspartate Amino Transf (AST/SGOT) 40H, Alanine Aminotransferase (ALT/SGPT) 21, Alkaline Phosphatase 72, Total Protein 8.2, Albumin 3.6, Albumin/Globulin Ratio 0.8L 02/21/21 21:30: Coronavirus (COVID-19)(PCR) NEGATIVE, Influenza Type A (RT-PCR) NEGATIVE, Influenza Type B (RT-PCR) NEGATIVE, Respiratory Syncytial Virus (PCR) NEGATIVE CBC/BMP Laboratory Tests 02/21/21 18:18 Assessment/Plan Patient is 75-year-old female with past medical history of coronary artery disease status post bypass surgery, carotid artery disease, status post carotid endarterectomy on the right. 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 Patient stated that he will bring became progressively worse for past week and became intolerable. In the ER patient was found to have no fever, no leukocytosis, sodium 130. On CT scan which was done on 02/03/2021 showed Large nasopharyngeal mass centered to the right measuring approximately 3.4 x 6.0 x 3.5 cm. There is anterior extension into the nasal passageway is, right greater than left and retropharyngeal extension across midline to the left. Dr Verdugo was contacted by ER, he recommended admission and pain management Problems (1) Intractable pain Status: Acute Problem Text: Status: Acute Problem Text: Secondary to nasopharyngeal tumor, pathology positive for beta cell lymphoma Consider oncology consult in the morning Pain management (2) Nasopharyngeal mass Status: Acute Problem Text: Status: Acute Problem Text: According to the biopsy result patient has B cell lymphoma Appreciate/agree with oncologist consult (3) Hypertension Status: Chronic Problem Text: (3) Hypertension Status: Chronic Problem Text: Blood pressure under control Continue cardioprotective medications (4) Coronary artery disease Status: Chronic Problem Text: (4) Coronary artery disease Status: Chronic Problem Text: Continue cardioprotective medications (5) Nausea Status: Acute Problem Text: (5) Nausea Status: Acute Problem Text: Zofran IV Plan / VTE VTE Prophylaxis Ordered?: Yes NATE BROWN DO Feb 22, 2021 05:46
[2021-02-22 06:00] VITALS: BP 154/77
[2021-02-22 06:12] LABS: HEMATOCRIT 37.5 % (36.0-47.0); MEAN CORPUSCULAR HEMOGLOBIN 31.8 pg (27.0-33.0); MEAN CORPUSCULAR HGB CONC 34.7 g/dl (32.0-36.5); MEAN CORPUSCULAR VOLUME 91.7 fl (80.0-96.0); PLATELET COUNT, AUTOMATED 279 10^3/uL (150-450); RED BLOOD COUNT 4.09 10^6/uL (4.00-5.40); WHITE BLOOD COUNT 4.8 10^3/uL (4.0-10.0)
[2021-02-22 06:40] LABS: ALBUMIN 3.4 GM/DL (3.2-5.2); ALT/SGPT 15 U/L (12-78); BLOOD UREA NITROGEN 9 MG/DL (7-18); CALCIUM LEVEL 8.5 MG/DL (8.8-10.2); CARBON DIOXIDE LEVEL 27 MEQ/L (21-32); CHLORIDE LEVEL 98 MEQ/L (98-107); CREATININE FOR GFR 0.45 MG/DL (0.55-1.30); GLOMERULAR FILTRATION RATE > 60.0 (>39); GLUCOSE, FASTING 92 MG/DL (70-100); MAGNESIUM LEVEL 2.4 MG/DL (1.8-2.4); POTASSIUM SERUM 3.3 MEQ/L (3.5-5.1); SODIUM LEVEL 131 MEQ/L (136-145); TOTAL PROTEIN 6.8 GM/DL (6.4-8.2)
[2021-02-22] MEDS ORDERED: POTASSIUM CHLORIDE 10 MEQ SR TABLET PO ONE (08:30)
[2021-02-22] MEDS ORDERED: MORPHINE 15 MG SA TAB PO SCH (09:00)
[2021-02-22] MEDS ORDERED: OMEPRAZOLE 20 MG CAP PO SCH (09:00)
[2021-02-22] MEDS: ASPIRIN 81MG ENTERIC TABLET PO SCH (09:14)
[2021-02-22] MEDS: METOPROLOL TART 12.5 MG PER 1/2 TAB PO SCH ×2 (09:15→20:07)
[2021-02-22] MEDS: ASCORBIC ACID 500 MG TAB PO SCH (09:15)
[2021-02-22] MEDS: ENOXAPARIN 40MG/0.4ML SYRINGE (J1650 PER 10MG) SC SCH (09:18)
[2021-02-22 14:00] VITALS: BP 119/64
[2021-02-22] MEDS: MORPHINE 2 MG/ML 1ML VIAL (J2270) IV PRN (16:44)
--- NOTE | 2021-02-22 17:10 | CR.PDOC ---
General Date of Consultation: Feb 22, 2021 Consultation This is a 75-year-old white female who has been referred by the inpatient medical services for an assessment. 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 This was biopsied in the beginning of January 2021. 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 Flow cytometry of this tissue indicates clonal population of B cells negative for CD5 and CD10 consistent with B-cell lymphoma and a smaller distinct population of B cells are positive for CD5 negative for CD23 are also present but there is no evidence of CD5 positive B-cell lymphoma on the the tissue sections. Furthermore FISH for CLL associated changes the 11;14 genetic analysis was pending. It is in this context that we were asked to see the patient as she was in severe pain with the aforementioned diagnosis. She was examined and evaluated in the room in the company of her and the nurse along with another lady. She denied any history of fever chills weight loss however she did indicate that she had difficulty in breathing through the nose and there was pain in the region in general that was severe. The CT scan report shows a Large nasopharyngeal mass centered to the right measuring approximately 3.4 x 6.0 x 3.5 cm. There is anterior extension into the nasal passageway right greater than left and retropharyngeal extension across midline to the left. There is extension into the right aspect of the soft palate and just into the cephalad aspect of the oropharynx on the right. Opacification of right mastoid air cells and partial opacification of the right middle ear cavity which is likely related to involvement of the eustachian tube. There is near complete if not complete obstruction of the posterior right nasal passageway. Minimal bilateral maxillary and ethmoid sinus disease. It is in the context of the pathology the imaging studies of the head and neck and the symptomatology of severe pain that oncology was asked to see the patient Past medical history: * The patient has had left breast cancer s/p double mastectomy did not require any systemic treatments approximately 20 years ago * Coronary artery disease s/p CABG * Carotid artery disease carotid endarterectomy * Moderate right hydronephrosis Mariann * Broke her left foot in 1998 * Tubular adenoma of the colon * Pulmonary fibrosis * Sleep apnea on CPAP * Bilateral cataracts 2010 Social history: former smoker denies alcohol or drugs Review of symptoms indicates generally that she has no fever chills or weight loss or any other systemic symptoms. She does not have any lumps anywhere else her appetite has been good no eye pain per se has got no skin rash chest no cough no shortness of breath no hemoptysis cardiovascular no angina has not received any chemotherapy with anthracyclines because of the history of breast cancer. No skin rashes no swelling of the feet no vomiting no systemic symptoms otherwise complained of Physical examination: The physical examination reveals a cooperative anxious woman sitting in bed did not appear to be having difficulty in breathing at the moment but appeared so mewhat anxious HEENT mouth is unremarkable could not see any mass, examination of the neck reveals small shotty adenopathy firm in the right lower neck. Chest examination is generally clear to percussion auscultation examination of the heart reveals normal heart sounds the abdomen was soft there was no organomegaly neurologically stable. RECOMMENDATIONS: * There is a need to systemically treat this patient as soon as it is feasible. The feasibility of treatment is dependent upon the firmness of histologic diagnosis and in particular as has been mentioned we need to know whether or not this is a double or triple expressing lymphoma. Classically these lymphomas are more resistant to permanent treatment and remissions. Treating these lymphomas requires more toxic regimens and more intensive ones. Although it is been mentioned to be a B-cell lymphoma the lymphoid panel work- up and discussion with pathology as the B-cell marker results on the flow cytometry show CD38/CD20 of which implies in the comments that these are 80% kappa restricted to CD19 and 20. This is important as rituximab and other agents can target this tumor. * She needs staging as soon as possible which is in the ideal scheme of things would require a PET CT scan * CT scans may suffice if needed * If things were to get very difficult for her I would have no hesitation after conferring with pathology that the results were firm give boluses of high-dose steroids to reduce the mass for pain relief. This area may require consolidative radiation and because of its site would also require intrathecal prophylaxis * Given the fact that we do not have an inpatient chemotherapy service I have recommended in my discussion with the attending hospitalist this evening that it would serve her best to be transferred to a referral center such as [facility] where in fact this tissue report of the lymphoma has been generated as a referral from [facility] and reported as in the records. * In the meantime she needs pain control as it is being carried out * Her prognosis is guarded however the bulk of tumor does not appear to be very large at this time * Will follow with you as needed Vital Signs/I&O Vital Signs Date Time Temp Pulse Resp B/P (MAP) Pulse Ox O2 Delivery O2 Flow Rate FiO2 02/22/21 16:44 18 Room Air 02/22/21 14:00 97.8 60 119/64 (82) 98 l I&O- Last 24 Hours up to 6 AM 02/22/21 06:00 Intake Total 300 ml Output Total 250 ml Balance 50 ml Laboratory Data Labs 24H Laboratory Tests 2 02/21/21 18:18: Immature Granulocyte % (Auto) 0.2, Neutrophils (%) (Auto) 48.1, Lymphocytes (%) (Auto) 32.8, Monocytes (%) (Auto) 15.6H, Eosinophils (%) (Auto) 2.6, Basophils (%) (Auto) 0.7, Neutrophils # (Auto) 2.8, Lymphocytes # (Auto) 1.9, Monocytes # (Auto) 0.9H, Eosinophils # (Auto) 0.2, Basophils # (Auto) 0.0, Nucleated Red Blood Cells % (auto) 0.0, Erythrocyte Sedimentation Rate 36H, Anion Gap 11, Glomerular Filtration Rate > 60.0, Calcium Level 9.1, Total Bilirubin 1.0, Direct Bilirubin 0.1, Aspartate Amino Transf (AST/SGOT) 40H, Alanine Aminotransferase (ALT/SGPT) 21, Alkaline Phosphatase 72, Total Protein 8.2, Albumin 3.6, Albumin/Globulin Ratio 0.8L 02/21/21 21:30: Coronavirus (COVID-19)(PCR) NEGATIVE, Influenza Type A (RT-PCR) NEGATIVE, Influenza Type B (RT-PCR) NEGATIVE, Respiratory Syncytial Virus (PCR) NEGATIVE 02/22/21 05:52: Nucleated Red Blood Cells % (auto) 0.0, Anion Gap 6L, Glomerular Filtration Rate > 60.0, Calcium Level 8.5L, Total Bilirubin 1.0, Aspartate Amino Transf (AST/SGOT) 18, Alanine Aminotransferase (ALT/SGPT) 15, Alkaline Phosphatase 63, Total Protein 6.8, Albumin 3.4, Albumin/Globulin Ratio 1.0L, Magnesium Level 2.4 CBC/BMP Laboratory Tests 02/21/21 18:18 02/22/21 05:52 Allergies Coded Allergies: Penicillins (Verified Allergy, Intermediate, RASH, 02/13/21) Home Medications Scheduled Ascorbic Acid (Ascorbic Acid) 500 Mg Tablet, 500 MG PO DAILY, (Reported) Aspirin (Aspirin EC) 81 Mg Tablet.dr, 81 MG PO DAILY, (Reported) Ergocalciferol (Vitamin D2) (Vitamin D2) 50,000 Units Cap, 50,000 UNITS PO QMONTH, (Reported) 1ST OF THE MONTH Glucosamine/D3/Boswellia Alison (Osteo Bi-Flex Tablet) 1 Each Tablet, 1 TAB PO BID, (Reported) Hydrochlorothiazide (Hydrochlorothiazide) 25 Mg Tab, 25 MG PO DAILY, (Reported) Lactobacillus Acidophilus (Probiotic) 1 Each Capsule, 2 CAP PO QHS, (Reported) Metoprolol Tartrate (Metoprolol Tartrate) 25 Mg Tablet, 12.5 MG PO BID, (Report ed) [employer]-3 Acid Ethyl Esters ([employer] Acid Ethyl Esters) 1 Gm Capsule, 2 GM PO BID, (Reported) Omeprazole (Omeprazole) 20 Mg Cap, 20 MG PO 4XWK, (Reported) MON,WED,FRI,SAT Simvastatin (Simvastatin) 20 Mg Tab, 20 MG PO QHS, (Reported) Scheduled PRN Oxycodone HCl/Acetaminophen (Oxycodone-Acetaminophen 5-325) 1 Each Tablet, 1 TAB PO Q6H PRN for MODERATE/SEVERE PAIN (PS 5-10), (Reported) Promethazine HCl (Promethegan) 25 Mg Supp.rect, 25 MG [place] Q6H PRN for NAUSEA, (Reported) MARIEL HAWLEYCP Feb 22, 2021 17:10
--- NOTE | 2021-02-22 17:10 | IPNPDOC ---
Text Note Date of Service The patient was seen on 02/22/21. NOTE Subjective: Patient was seen and examined at bedside today. She reports being in lot of pain in her sinuses and head. Reports to have mild right ear pain [she did have ear tube put in her right ear and fluid was drained by ENT recently]. Denies having any nausea, vomiting, chest pain, abdominal pain. Objective: General: Patient is awake, alert, oriented times three, laying in bed bed , no apparent distress. Eyes: Conjunctiva clear, pupils equal round and reactive to light and accommodation. ENT: Hearing Bilateral normal. She reports to have ear tube placed in her right ear recently by ENT. Neck: supple, patient has fullness in her anterior and posterior triangle of neck. Has matted posterior cervical and superficial cervical lymph nodes in her right side of neck. Cardiovascular: S1, S2, normal rhythm, no murmur, rub, or gallop. Respiratory: Chest is clear to auscultation bilaterally, No rhonchi, wheezes or rubs. Abdomen: Soft, bowel sounds positive, no bruits. Nontender on palpation. Extremities: No clubbing or cyanosis. No edema, no tenderness. Central nervous system (TRIGONOMETRY TUTOR): Awake, alert and fully oriented. Skin: No rashes, lesions, ulcerations, subcutaneous nodules or induration. Assessment: 75-year-old female with history of CAD s/p bypass, CAD s/p carotid endarterectomy, left breast cancer s/p bilateral mastectomy, HTN, IVANA with recent diagnosis of nasopharyngeal mass in January 2021, biopsy showing B-cell lymphoma[pathology pending]. Patient presents to ED with worsening and intolerable pain over her sinuses and headache. She was scheduled to see oncology outpatient prior to the admission. Patient was admitted for pain management. Plan: Nasopharyngeal mass [B-cell lymphoma] Oncology was consulted, we appreciate their input and recommendations. -On examination patient did report having difficulty in swallowing will get a swallow evaluation. -Patient was on hydromorphone, Percocet, morphine but she reports to have nausea and her Percocet and Dilaudid was held and started on MS Contin - MS contin dose was adjusted Hypertension: -Her blood pressure is well controlled with her home medications. -We will continue hydrochlorothiazide 25 mg daily, metoprolol 12.5 mg twice daily CAD s/p bypass: -We will continue simvastatin 20 mg. -We will continue aspirin 81 mg daily Nausea: -Patient reports to have mild nausea and we will treat her with Zofran 4 mg as needed. GERD: We will continue omeprazole 20 mg DVT prophylaxis: Lovenox 40 mg subcutaneous. Disposition: -Pending clinical improvement. VS,Fishbone, I+O VS, Fishbone, I+O Laboratory Tests 02/21/21 18:18 02/22/21 05:52 Vital Signs Date Time Temp Pulse Resp B/P (MAP) Pulse Ox O2 Delivery O2 Flow Rate FiO2 02/22/21 09:15 67 154/77 02/22/21 09:14 19 Room Air 02/22/21 06:01 95 02/22/21 06:00 97.9 I&O- Last 24 Hours up to 6 AM 02/22/21 06:00 Intake Total 300 ml Output Total 250 ml Balance 50 ml GME ATTESTATION GME ATTESTATION My faculty preceptor for this patient encounter was physically present during the encounter and was fully available. All aspects of the patient interview, examination, medical decision making process, and medical care plan development were reviewed and approved by the faculty preceptor. The faculty preceptor is aware and concurs with the plan as stated in the body of this note and will attest to such by his/her cosignature. ATTENDING NOTE I, Scottie Bolaños, have independently examined this patient and performed my own physical exam, as well as reviewed the documentation and edited where necessary. I have discussed in detail with the resident / student the findings and plan of treatment as documented by the resident / student and edited their note. I agree with their findings and treatment plan and have edited their documentation. I will continue to follow the patient during this hospital stay. - Oncology was consulted and case was discussed in detail - Recommended transfer to facility with inpatient chemotherapy, however if alexy vailable the next option would be to continue pain control and consider corticosteroid therapy - Discussed with [facility] - no beds available - Oncology to discuss with pathology and radiation oncology tomorrow Dana Gonzalez MD Feb 22, 2021 15:00 SCOTTIE BOLAÑOS MD Feb 22, 2021 18:01
[2021-02-22] MEDS ORDERED: ISOVUE-370 76% 100ML VIAL As Ordered ONE (18:19)
--- NOTE | 2021-02-22 19:14 | REP ---
INDICATION: Evaluate for lymphadenopathy COMPARISON: None. TECHNIQUE: Standard helical technique after the intravenous administration of 100 cc Isovue 370. FINDINGS: There is no mediastinal or hilar adenopathy. There are no pleural or pericardial effusions. The imaged osseous structures are within normal limits. Evaluation of the lung farrar shows bilateral lower lung field peripheral curvilinear densities. There are no abnormal nodules, masses, or opacities. There is early cylindrical bronchiectasis. IMPRESSION: Mild lower lung field fibrotic and/or subsegmental atelectatic changes. There is mild cylindrical bronchiectasis. <Electronically signed by Patrice Foote > 02/22/21 [id number]
--- NOTE | 2021-02-22 19:22 | REP ---
INDICATION: Evaluate for lymphadenopathy. COMPARISON: 01/14/2018 a noncontrast enhanced examination TECHNIQUE: Standard helical technique after the intravenous administration of 100 cc Isovue 370. FINDINGS: Note is again made of cholelithiasis. The liver, spleen, pancreas, adrenal glands, and kidneys are within normal limits and essentially unchanged. The abdominal aorta and para-aortic regions are essentially unchanged and again seen to be within normal limits. There is no mass or adenopathy. There is no free fluid or free air. The bowel loops and the mesenteries are essentially unchanged. The ford of the appendix do mildly enhance, however, the size of the appendix is unchanged from the prior exam and there is no evidence of periappendiceal fatty infiltration. The osseous structures are stable and intact. IMPRESSION: No significant change from the prior exam. No evidence of acute disease. Findings as described above. <Electronically signed by Patrice Foote > 02/22/21 [id number]
--- NOTE | 2021-02-22 19:59 | REPVR ---
PROCEDURE INFORMATION: Exam: CT Head Without And With Contrast Exam date and time: 02/22/2021 6:51 PM Age: 75 years old Clinical indication: Other: Evaluate for lymphadenopathy; Additional info: Evaulate for lymphadenopathy TECHNIQUE: Imaging protocol: Computed tomography of the head without and with intravenous contrast. Radiation optimization: All CT scans at this facility use at least one of these dose optimization techniques: automated exposure control; mA and/or kV adjustment per patient size (includes targeted exams where dose is matched to clinical indication); or iterative reconstruction. Contrast material: ISOVUE 370; Contrast volume: 100 ml; Contrast route: INTRAVENOUS (IV); COMPARISON: CT Maxillofacial with contrast 02/03/2021 11:29 AM FINDINGS: Brain: The brain demonstrates diffuse volume loss. There is white matter hypodensity most consistent with chronic small vessel ischemic change. No visible evolving territorial infarct. No hemorrhage. Asymmetric hypodensity in the right frontal lobe periventricular white matter without associated enhancement is identified on the postcontrast imaging, possibly an area of chronic ischemia. Cerebral ventricles: The ventricles are mildly enlarged in keeping with volume loss. Paranasal sinuses: The paranasal sinuses are evaluated separately on a dedicated exam. Mastoid air cells: The mastoids are chronically underpneumatized. Right mastoid effusion is again demonstrated which may be related to eustachian obstruction in this patient with a known mass. Vasculature: Bulbous prominence at the left middle cerebral artery bifurcation for example seen on image 18 of series 502 measuring approximately 3-4 mm. Bones/joints: Unremarkable. No acute fracture. Soft tissues: Unremarkable. Nasal cavity: Nasopharyngeal mass extending into the nasal cavity is described separately on the CT maxillofacial study. IMPRESSION: 1. No acute intracranial abnormality seen. 2. No enhancing intracranial pathology identified. 3. 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 Electronically signed by: Nicole Payan On 02/22/2021 19:59:41 PM
[2021-02-22] MEDS: DOCUSATE SODIUM 100MG CAPSULE PO SCH (20:07)
[2021-02-22] MEDS: MORPHINE 15 MG SA TAB PO SCH (20:09)
--- NOTE | 2021-02-22 20:13 | REPVR ---
PROCEDURE INFORMATION: Exam: CT Maxillofacial With Contrast Exam date and time: 02/22/2021 6:51 PM Age: 75 years old Clinical indication: Other: Evaluate for lymphadenopathy TECHNIQUE: Imaging protocol: Computed tomography images of the face with intravenous contrast. Radiation optimization: All CT scans at this facility use at least one of these dose optimization techniques: automated exposure control; mA and/or kV adjustment per patient size (includes targeted exams where dose is matched to clinical indication); or iterative reconstruction. Contrast material: ISOVUE 370; Contrast volume: 100 ml; Contrast route: INTRAVENOUS (IV); COMPARISON: CT Maxillofacial with contrast 02/03/2021 11:[address] Head W/O FOLL BY WITH CONTR 02/22/2021 6:39:25 PM FINDINGS: Orbital cavity: Thinning of the lenses of the globes consistent with prior lens surgery. Bones/joints: No acute fracture. Paranasal sinuses: The mass versus mucosal thickening in the inferior right sphenoid sinus, image 25 series 305. The floor of the sphenoid sinus does appear eroded. There is subjacent tumor. Mild bilateral maxillary sinus mucosal thickening. Soft tissues: Unremarkable. Lymph nodes: There is bulky conglomerate right level 2 and level 3 lymphadenopathy. Right cervical lymphadenopathy is incompletely characterized on this study. Bulky right level 2 lymphadenopathy measures approximately 5.5 x 2.0 x 5.3 cm, image 15 series 301, image 13 series 305. This measurement includes a lymph node measuring 2.0 x 1.4 cm on image 17 of series 301 which appears heterogeneous and may be partially necrotic. Nasopharynx: A nasopharyngeal mass is again demonstrated. In particular, right nasopharyngeal mass invading the retropharyngeal and prevertebral spaces. This is poorly marginated and infiltrative, difficult to measure, approximately 7.2 x 3.6 x 4.8 cm, image 29 series 301, image 25 series 305. Mass encircles the distal cervical right ICA. Anteriorly, there is extension into the nasal cavity, more so on the right. 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 Inferiorly, mass abuts and likely invades the right soft palate. Carotid atherosclerosis is again demonstrated. 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 Extension of tumor into the pterygopalatine fossa places the patient at risk for for perineural tumor spread. Tumor likely invades the floor of the right sphenoid sinus. Tumor extends into the nasal cavity and likely involves the soft palate. Electronically signed by: Nicole Payan On 02/22/2021 20:12:29 PM
[2021-02-22 22:00] VITALS: BP 145/78
[2021-02-23] MEDS: MORPHINE 2 MG/ML 1ML VIAL (J2270) IV PRN ×2 (02:38→16:25)
[2021-02-23 06:00] VITALS: BP 124/67
[2021-02-23 08:58] LABS: BLOOD UREA NITROGEN 13 MG/DL (7-18); CALCIUM LEVEL 8.8 MG/DL (8.8-10.2); CARBON DIOXIDE LEVEL 28 MEQ/L (21-32); CHLORIDE LEVEL 101 MEQ/L (98-107); CREATININE FOR GFR 0.73 MG/DL (0.55-1.30); GLOMERULAR FILTRATION RATE > 60.0 (>39); GLUCOSE, FASTING 143 MG/DL (70-100); POTASSIUM SERUM 3.7 MEQ/L (3.5-5.1); SODIUM LEVEL 135 MEQ/L (136-145)
[2021-02-23 09:08] VITALS: BP 140/80
[2021-02-23] MEDS: DOCUSATE SODIUM 100MG CAPSULE PO SCH (09:08)
[2021-02-23] MEDS: METOPROLOL TART 12.5 MG PER 1/2 TAB PO SCH (09:08)
[2021-02-23] MEDS: ASPIRIN 81MG ENTERIC TABLET PO SCH (09:08)
[2021-02-23] MEDS: ASCORBIC ACID 500 MG TAB PO SCH (09:08)
[2021-02-23] MEDS: MORPHINE 15 MG SA TAB PO SCH (09:09)
[2021-02-23] MEDS: ENOXAPARIN 40MG/0.4ML SYRINGE (J1650 PER 10MG) SC SCH (09:09)
[2021-02-23 14:00] VITALS: BP 122/67
[2021-02-23] MEDS ORDERED: MORP15TASA PO (16:37)
[2021-02-23] MEDS ORDERED: PERCOCET PO (16:37)
--- NOTE | 2021-02-23 17:24 | RADONC.CN ---
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 She is s/p biopsy on 02/13/21 and is currently admitted for intractable facial pain, while awaiting transfer to [place] for initiation of inpatient chemotherapy. I was asked to see her to evaluate for the role of RT to lessen her pain. Diagnosis/Treatment History Oncologic History History of left breast cancer s/p BL mastectomy, no adjuvant treatments ~1999-December 2020 noted increasing facial pressure and pain, as well as right sided hearing loss. This progressed rapidly over weeks to more sever facial pain and dysphagia. 02/03/21 CT head/neck with nasopharyngeal mass and enlarged right cervical nodes 02/13/21 Underwent biopsy showing DLBCL, BCL2, BCL6, MYC pending 02/22/21 Presented to ED for pain management admission Transfer to [facility] for inpatient chemotherapy being pursued. Recent data: 02/22/21 CT maxillofacial FINDINGS: Orbital cavity: Thinning of the lenses of the globes consistent with prior lens surgery. Bones/joints: No acute fracture. Paranasal sinuses: The mass versus mucosal thickening in the inferior right sphenoid sinus, image 25 series 305. The floor of the sphenoid sinus does appear eroded. There is subjacent tumor. Mild bilateral maxillary sinus mucosal thickening. Soft tissues: Unremarkable. Lymph nodes: There is bulky conglomerate right level 2 and level 3 lymphadenopathy. Right cervical lymphadenopathy is incompletely characterized on this study. Bulky right level 2 lymphadenopathy measures approximately 5.5 x 2.0 x 5.3 cm, image 15 series 301, image 13 series 305. This measurement includes a lymph node measuring 2.0 x 1.4 cm on image 17 of series 301 which appears heterogeneous and may be partially necrotic. Nasopharynx: A nasopharyngeal mass is again demonstrated. In particular, right nasopharyngeal mass invading the retropharyngeal and prevertebral spaces. This is poorly marginated and infiltrative, difficult to measure, approximately 7.2 x 3.6 x 4.8 cm, image 29 series 301, image 25 series 305. Mass encircles the distal cervical right ICA. Anteriorly, there is extension into the nasal cavity, more so on the right. 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 Inferiorly, mass abuts and likely invades the right soft palate. Carotid atherosclerosis is again demonstrated. 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 Extension of tumor into the pterygopalatine fossa places the patient at risk for for perineural tumor spread. Tumor likely invades the floor of the right sphenoid sinus. Tumor extends into the nasal cavity and likely involves the soft palate. Interval History Seen at bedside, reports severe facial pain which is burning and constant. Also having problems with swallowing. These have greatly escalated over the last 2 weeks or so since biopsy. She does note that typanostomy placement on the right has restored her hearing. She has no double vision, no problems chewing, no facial numbness. No facial weakness. She is not sure how much weight she has lost except that she has lost some. She has no fevers or night sweats. Past Medical History: IVANA CAD Cataracts Pulmonary fibrosis Left breast cancer Past Surgical History: Colonoscopy CABG Carotid enarderectomy Family History: No family cancer history Social History: Former smoker Non drinker Allergies / Meds Allergies: Coded Allergies: Penicillins (Verified Allergy, Intermediate, RASH, 02/13/21) Home Meds Active Scripts Morphine Sulfate (Morphine Sulfate ER) 15 Mg Tablet.er, 30 MG PO BID MDD 4 tabs for 1 Day, #2 TAB Prov:CHRISTOPHER BOLAÑOS MD 02/23/21 Oxycodone/Acetaminophen (Oxycodone-Acetaminophen 5-325) 1 Each Tablet, 1 TAB PO Q4H PRN for MODERATE PAIN (PS 5-7) MDD 6 tabs for 1 Day, #1 TAB Prov:CHRISTOPHER BOLAÑOS MD 02/23/21 Reported Medications Promethazine HCl (Promethegan) 25 Mg Supp.rect, 25 MG MS Q6H PRN for NAUSEA 02/21/21 Metoprolol Tartrate (Metoprolol Tartrate) 25 Mg Tablet, 12.5 MG PO BID, TAB 02/21/21 Ascorbic Acid (Ascorbic Acid) 500 Mg Tablet, 500 MG PO DAILY, TAB 02/21/21 Glucosamine/D3/Boswellia Alison (Osteo Bi-Flex Tablet) 1 Each Tablet, 1 TAB PO BID, TAB 02/10/21 Aspirin (Aspirin EC) 81 Mg Tablet.dr, 81 MG PO DAILY 02/10/21 Ergocalciferol (Vitamin D2) (Vitamin D2) 50,000 Units Cap, 47275 UNITS PO QMONTH, CAP 1ST OF THE MONTH 02/10/21 [place]-3 Acid Ethyl Esters ([place]-3 Acid Ethyl Esters) 1 Gm Capsule, 2 GM PO BID, CAP 02/10/21 Lactobacillus Acidophilus (Probiotic) 1 Each Capsule, 2 CAP PO QHS, CAP 02/10/21 Omeprazole (Omeprazole) 20 Mg Cap, 20 MG PO 4XWK, CAP MON,WED,FRI,SAT 02/21/18 Simvastatin (Simvastatin) 20 Mg Tab, 20 MG PO QHS 02/21/18 Hydrochlorothiazide (Hydrochlorothiazide) 25 Mg Tab, 25 MG PO DAILY 02/21/18 Discontinued Reported Medications Oxycodone HCl/Acetaminophen (Oxycodone-Acetaminophen 5-325) 1 Each Tablet, 1 TAB PO Q6H PRN for MODERATE/SEVERE PAIN (PS 5-10), TAB 02/21/21 Hydrocodone/Acetaminophen (Hydrocodone-Acetamin 5-325 mg) 1 Each Tablet 02/19/21 Discontinued Scripts Promethazine HCl (Promethazine HCl) 50 Mg Supp.rect, 25 MG MS Q6-8HP PRN for NAUSEA for 5 Days, #5 APLCTR Prov:FERNANDO NAVAS PA-C 02/19/21 Oxycodone HCl/Acetaminophen (Percocet 5-325 mg Tablet) 1 Each Tablet, 1 TAB PO Q6H PRN for PAIN MDD 4, #12 TAB Prov:FERNANDO NAVAS PA-C 02/19/21 Ondansetron (Ondansetron Odt) 4 Mg Tab.rapdis, 1 TAB PO Q6-8HP PRN for na usea/vomiting for 4 Days, #16 TAB Prov:DAINE NARANJO MD 02/11/21 Metoprolol Tartrate (Metoprolol Tartrate) 25 Mg Tab, 12.5 MG PO BID, #15 TAB Prov:DIANE NARANJO MD 02/11/21 Tramadol HCl (Tramadol HCl) 50 Mg Tablet, 50 MG PO TID PRN for MODERATE PAIN (PS 5-7) MDD 3, #30 TAB Prov:DIANE NARANJO MD 02/11/21 Acetaminophen with Codeine (Acetaminophen-Cod #3 Tablet) 1 Each Tablet, 1 EA PO Q4HP PRN for SEVERE PAIN (PS 8-10) MDD 4, #20 TAB Prov:DIANE NARANJO MD 02/11/21 Vital Signs Vital Signs Date Time Temp Pulse Resp B/P (MAP) Pulse Ox O2 Delivery O2 Flow Rate FiO2 02/23/21 16:25 17 Room Air 02/23/21 14:00 97.4 66 122/67 (85) 96 General Exam: Positive: Alert, Cooperative, No Acute Distress Eye Exam: Positive: PERRLA, EOMI ENT EXAM: Positive: Atraumatic, Pharynx Normal, Tongue Midline Neck Exam: Positive: Supple, Lymphadenopathy (Right sided palpable cervical nodes, rubbery mobile) Chest Exam: Positive: Clear to auscultation Heart Exam: Positive: Rate Normal Abdomen Exam: Positive: Soft; Negative: Tenderness Extremity Exam: Positive: Edema (Pretibial 1+) Skin Exam: Positive: Nl turgor and temperature Neuro Exam: Positive: Strength at 5/5 X4 ext, Cranial Nerves 3-12 NL Psych Exam: Positive: Mental status NL Diagnostic and Laboratory Diagnostic Review Radiologic images, relevant labs and pathology reports were personally reviewed and discussed with Ms. Castaneda. Laboratory Tests 02/21/21 18:18 02/22/21 05:52 02/23/21 08:10 Laboratory Tests 02/21/21 18:18: White Blood Count 5.8, Red Blood Count 4.48, Hemoglobin 14.3, Hematocrit 41.0, Mean Corpuscular Volume 91.5, Mean Corpuscular Hemoglobin 31.9, Mean Corpuscular Hemoglobin Concent 34.9, Red Cell Distribution Width 11.9, Platelet Count 373, Immature Granulocyte % (Auto) 0.2, Neutrophils (%) (Auto) 48.1, Lymphocytes (%) (Auto) 32.8, Monocytes (%) (Auto) 15.6H, Eosinophils (%) (Auto) 2.6, Basophils (%) (Auto) 0.7, Neutrophils # (Auto) 2.8, Lymphocytes # (Auto) 1.9, Monocytes # (Auto) 0.9H, Eosinophils # (Auto) 0.2, Basophils # (Auto) 0.0, Nucleated Red Blood Cells % (auto) 0.0, Erythrocyte Sedimentation Rate 36H, Sodium Level 130L, Potassium Level 4.4, Chloride Level 92L, Carbon Dioxide Level 27, Anion Gap 11, Blood Urea Nitrogen 9, Creatinine 0.63, Glomerular Filtration Rate > 60.0, Fast ing Glucose 93, Calcium Level 9.1, Total Bilirubin 1.0, Direct Bilirubin 0.1, Aspartate Amino Transf (AST/SGOT) 40H, Alanine Aminotransferase (ALT/SGPT) 21, Alkaline Phosphatase 72, Total Protein 8.2, Albumin 3.6, Albumin/Globulin Ratio 0.8L 02/21/21 21:30: Coronavirus (COVID-19)(PCR) NEGATIVE, Influenza Type A (RT-PCR) NEGATIVE, Influenza Type B (RT-PCR) NEGATIVE, Respiratory Syncytial Virus (PCR) NEGATIVE 02/22/21 05:52: White Blood Count 4.8, Red Blood Count 4.09, Hemoglobin 13.0, Hematocrit 37.5, Mean Corpuscular Volume 91.7, Mean Corpuscular Hemoglobin 31.8, Mean Corpuscular Hemoglobin Concent 34.7, Red Cell Distribution Width 11.9, Platelet Count 279, Nucleated Red Blood Cells % (auto) 0.0, Sodium Level 131L, Potassium Level 3.3#L, Chloride Level 98, Carbon Dioxide Level 27, Anion Gap 6L, Blood Urea Nitrogen 9, Creatinine 0.45L, Glomerular Filtration Rate > 60.0, Fasting Glucose 92, Calcium Level 8.5L, Total Bilirubin 1.0, Aspartate Amino Transf (AST/SGOT) 18, Alanine Aminotransferase (ALT/SGPT) 15, Alkaline Phosphatase 63, Total Protein 6.8, Albumin 3.4, Albumin/Globulin Ratio 1.0L, Magnesium Level 2.4 02/23/21 08:10: Sodium Level 135L, Potassium Level 3.7, Chloride Level 101, Carbon Dioxide Level 28, Anion Gap 6L, Blood Urea Nitrogen 13, Creatinine 0.73#, Glomerular Filtration Rate > 60.0, Fasting Glucose 143H, Calcium Level 8.8 Assessment and Plan Impression Ms. 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 She is s/p biopsy on 02/13/21 and is currently admitted for intractable facial pain, while awaiting transfer to [place] for initiation of inpatient chemoth erapy. I was asked to see her to evaluate for the role of RT to lessen her pain. Stage DLBCL stage II waldeyer's ring right cervical nodes Performance Status ECOG 2 Plan We had an extensive discussion with Ms. Castaneda regarding the diagnosis at hand and available therapeutic options. Her pain is responsive to morphine. She has no CN findings or signs of neurological compromise from the mass at this time. I think her pain is related entirely to the mass effect of the lesion in the nasopharynx She would undoubtedly benefit from prompt chemotherapy, but I have heard that there is no bed availability in [place] for this. In lieu of of chemotherapy she would likely benefit from a pulse of corticosteroids which can lead to rapid downsizing of high grade lymphomas such as this. Given that histology has been obtained, (molecular analyses are the only pending tests) there is no downside to giving the steroids now as a temporizing measure. This will not in any way compromise her ability to receive chemotherapy when leti ilable. It also may actually facilitate her discharge from the hospital. She could then follow up at our center as an outpatient for prompt initiation of chemotherapy there. I would withhold RT at this time in favor of trial of steroids. Given the location and contiguous nature of the disease present (based admittedly on CT scans, and not PET-CT which is the gold-standard) I would prefer to reserve RT for consolidation after chemotherapy or in case of chemo-refractory disease. RT would also carry a higher risk of side effects that prednisone in the short term. After discussing the risks, benefits and alternatives to radiation therapy, Ms. Castaneda was amenable to withholding RT for now. All questions were answered to the patient's satisfaction. We instructed the patient that if there were any questions,concerns or changes in clinical status in the interim to contact us. I will follow along while she is hospitalized and if she is discharged prior to transfer to [place], I will ensure she has appropriate follow up at [facility] as an outpatient. Recommendations Would reserve RT for consolidation purposes for this potentially curable DLBCL Agree with prompt transfer for chemotherapy inpatient if feasible Would give prednisone bolus now 100 mg daily for 5 days as biopsy has been obtained Monitor tumor lysis labs (including LDH and uric acid) ensure adequate hydration Will follow peripherally while inpatient Billing Statement Total time of [56] minutes was spent preparing for the visit [6], obtaining HPI [10], examining the patient [5], reviewing diagnostic tests [7], discussing management options [16], coordinating care [2], and writing this note [10]. CHUY CHEEMA MD Feb 23, 2021 17:24
[2021-02-23 17:45] VITALS: BP 127/65
[2021-02-23] MEDS ORDERED: MORPHINE 2 MG/ML 1ML VIAL (J2270) IV ONE (18:10)
--- NOTE | 2021-02-23 19:22 | DS.PDOC ---
Discharge Summary General Date of Admission Feb 21, 2021 at 17:28 Date of Discharge February 23, 2021 transfer to [place] Attending Physician: SCOTTIE BOLAÑOS MD Discharge Summary PROCEDURES PERFORMED DURING STAY: None. 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 HISTORY OF PRESENT ILLNESS: 75-year-old female with history of CAD s/p bypass, CAD s/p carotid endarterectomy, left breast cancer s/p bilateral mastectomy, HTN, IVANA with recent diagnosis of nasopharyngeal mass in January 2021, biopsy showing B-cell lymphoma[pathology pending]. Patient presents to ED with worsening and intolerable pain over her sinuses and headache. She was scheduled to see oncology outpatient prior to the admission. Patient was admitted for pain management. HOSPITAL COURSE: Nasopharyngeal mass - likely 2/2 B cell lymphoma - Patient was recently diagnosed after biopsy earlier this month with ENT - Extensive CT scan of head, maxillofacial, chest, abdomen / pelvis were completed to begin staging - On oncology evaluation yesterday; recommendation was for transfer to higher level of care where she can receive urgent chemotherapy to help reduce the mass effect / pain - Patient was accepted to [facility] on 02/23/2021 under the hospitalist service - Dr. Becerra - Case was discussed between our oncologist and the oncology service at [facility] Intractable pain 2/2 above - Patient had reported improvement of their pain on current regimen of medications - c/w MS Contin, and Oxycodone / Morphine IV for breakthrough pain Difficulty swallowing - Speech therapy has worked with patient - Recommended pureed diet DISCHARGE MEDICATIONS: Please see below. ALLERGIES: Please see below. PHYSICAL EXAMINATION ON DISCHARGE: VITAL SIGNS: Please see below. General: Patient is awake, alert, oriented times three, laying in bed bed , no apparent distress. Eyes: Conjunctiva clear, pupils equal round and reactive to light and accommodation. ENT: Hearing Bilateral normal. She reports to have ear tube placed in her right ear recently by ENT. Neck: supple, patient has fullness in her anterior and posterior triangle of neck. Has matted posterior cervical and superficial cervical lymph nodes in her right side of neck. Cardiovascular: S1, S2, normal rhythm, no murmur, rub, or gallop. Respiratory: Chest is clear to auscultation bilaterally, No rhonchi, wheezes or rubs. Abdomen: Soft, bowel sounds positive, no bruits. Nontender on palpation. Extremities: No clubbing or cyanosis. No edema, no tenderness. 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 Skin: No rashes, lesions, ulcerations, subcutaneous nodules or induration. LABORATORY DATA: Please see below. IMAGING: CT abdomen and pelvis without contrast done on 02/22/2021: Reported as:No significant change from the prior exam. No evidence of acute disease CT chest without contrast done on 02/22/2021: Reported as:Mild lower lung field fibrotic and/or subsegmental atelectatic changes. There is mild cylindrical bronchiectasis. CT head W/O followed by with contrast done on 02/22/2021: Reported as:Brain: The brain demonstrates diffuse volume loss. There is white matter hypodensity most consistent with chronic small vessel ischemic change. No visible evolving territorial infarct. No hemorrhage. Asymmetric hypodensity in the right frontal lobe periventricular white matter without associated enhancement is identified on the postcontrast imaging, possibly an area of chronic ischemia. Cerebral ventricles: The ventricles are mildly enlarged in keeping with volume loss. Paranasal sinuses: The paranasal sinuses are evaluated separately on a dedicated exam. Mastoid air cells: The mastoids are chronically underpneumatized. Right mastoid effusion is again demonstrated which may be related to eustachian obstruction in this patient with a known mass. Vasculature: Bulbous prominence at the left middle cerebral artery bifurcation for example seen on image 18 of series 502 measuring approximately 3-4 mm. Bones/joints: Unremarkable. No acute fracture. Soft tissues: Unremarkable. Nasal cavity: Nasopharyngeal mass extending into the nasal cavity is described separately on the CT maxillofacial study. 1. No acute intracranial abnormality seen. 2. No enhancing intracranial pathology identified. 3. 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 Extension of tumor into the pterygopalatine fossa places the patient at risk for for perineural tumor spread. Tumor likely invades the floor of the right sphenoid sinus. Tumor extends into the nasal cavity and likely involves the soft palate. PROGNOSIS: Poor ACTIVITY: As tolerated. DIET: As tolerated [she was tolerating only soft liquid diet in the hospital] DISCHARGE PLAN: DISPOSITION: [facility] DISCHARGE INSTRUCTIONS: 1. Patient is being discharged to [facility] for further management of her nasopharyngeal cancer DISCHARGE CONDITION: Stable. TIME SPENT ON DISCHARGE: 45 minutes Vital Signs/I&Os Vital Signs Date Time Temp Pulse Resp B/P (MAP) Pulse Ox O2 Delivery O2 Flow Rate FiO2 02/23/21 18:36 17 Room Air 02/23/21 17:45 98.1 59 127/65 (85) 94 I&O- Last 24 Hours up to 6 AM 02/23/21 06:00 Intake Total 1130 ml Output Total 1850 ml Balance -720 ml Laboratory Data Labs 24H Laboratory Tests 2 02/23/21 08:10: Anion Gap 6L, Glomerular Filtration Rate > 60.0, Calcium Level 8.8 CBC/BMP Laboratory Tests 02/23/21 08:10 Discharge Medications Scheduled Ascorbic Acid (Ascorbic Acid) 500 Mg Tablet, 500 MG PO DAILY, (Reported) Aspirin (Aspirin EC) 81 Mg Tablet.dr, 81 MG PO DAILY, (Reported) Ergocalciferol (Vitamin D2) (Vitamin D2) 50,000 Units Cap, 50,000 UNITS PO QMONTH, (Reported) 1ST OF THE MONTH Glucosamine/D3/Boswellia Alison (Osteo Bi-Flex Tablet) 1 Each Tablet, 1 TAB PO BID, (Reported) Hydrochlorothiazide (Hydrochlorothiazide) 25 Mg Tab, 25 MG PO DAILY, (Reported) Lactobacillus Acidophilus (Probiotic) 1 Each Capsule, 2 CAP PO QHS, (Reported) Metoprolol Tartrate (Metoprolol Tartrate) 25 Mg Tablet, 12.5 MG PO BID, (Reported) Morphine Sulfate (Morphine Sulfate ER) 15 Mg Tablet.er, 30 MG PO BID Wyatt-3 Acid Ethyl Esters (Wyatt-3 Acid Ethyl Esters) 1 Gm Capsule, 2 GM PO BID, (Reported) Omeprazole (Omeprazole) 20 Mg Cap, 20 MG PO 4XWK, (Reported) MON,WED,FRI,SAT Simvastatin (Simvastatin) 20 Mg Tab, 20 MG PO QHS, (Reported) Scheduled PRN Oxycodone/Acetaminophen (Oxycodone-Acetaminophen 5-325) 1 Each Tablet, 1 TAB PO Q4H PRN for MODERATE PAIN (PS 5-7) Promethazine HCl (Promethegan) 25 Mg Supp.rect, 25 MG GA Q6H PRN for NAUSEA, (Reported) Allergies Coded Allergies: Penicillins (Verified Allergy, Intermediate, RASH, 02/13/21) GME ATTESTATION GME ATTESTATION My faculty preceptor for this patient encounter was physically present during the encounter and was fully available. All aspects of the patient interview, examination, medical decision making process, and medical care plan development were reviewed and approved by the faculty preceptor. The faculty preceptor is aware and concurs with the plan as stated in the body of this note and will attest to such by his/her cosignature. ATTENDING NOTE I, Scottie Bolaños, have independently examined this patient and performed my own physical exam, as well as reviewed the documentation and edited where necessary. I have discussed in detail with the resident / student the findings and plan of treatment as documented by the resident / student and edited their note. I agree with their findings and treatment plan and have edited their documentation. I will continue to follow the patient during this hospital stay. Time spent on discharge 35 minutes Dana Gonzalez MD Feb 23, 2021 19:22 SCOTTIE BOLAÑOS MD Feb 23, 2021 21:28
== END 2021-02-23 18:30 | disposition short-term general hospital (02) | DRG 842 ==
LOC: M ED 17:27 → M ED INP 17:28 → ENRESERVTM 22:38 → ENRESERVDT 22:38 → M MSPAV 23:18 → OBSVTOIN 02-23 10:40 → UNDODISOB 02-23 18:30
PROVIDERS: ADMIT Internal Medicine; ATTEND Internal Medicine
DX: 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, lymph nodes of head, face, and neck (principal); I25.10 Atherosclerotic heart disease of native coronary artery without angina pectoris; I10 Essential (primary) hypertension; G89.3 Neoplasm related pain (acute) (chronic); R11.0 Nausea; G47.33 Obstructive sleep apnea (adult) (pediatric); J84.10 Pulmonary fibrosis, unspecified; R13.10 Dysphagia, unspecified; Z79.82 Long term (current) use of aspirin; Z95.1 Presence of aortocoronary bypass graft; Z79.899 Other long term (current) drug therapy; Z88.0 Allergy status to penicillin; Z87.891 Personal history of nicotine dependence; Z20.822 Contact with and (suspected) exposure to COVID-19; Z90.13 Acquired absence of bilateral breasts and nipples; Z85.3 Personal history of malignant neoplasm of breast; Z87.442 Personal history of urinary calculi; Z98.41 Cataract extraction status, right eye; Z98.42 Cataract extraction status, left eye

== ENCOUNTER 2021-04-09 19:09 | Inpatient (IN) | payer MEDICARE, BC, OTHER ==
[~2021-04-09] VITALS: Ht 157.5 cm; Wt 58.4 kg
[~2021-04-09 19:09] MED LIST changes: +ASCO500T PO; +LR 1,000 ML IV ONE; +MORP15TASA PO; +OXYC1TAB23 PO; +PERCOCET PO; +PROM25SU3 PR
[2021-04-09] MEDS ORDERED: ZOFR4TAB16 PO (19:26)
[2021-04-09] MEDS ORDERED: MIRT1TAB15 PO (19:26)
[2021-04-09] MEDS ORDERED: LYRI75CA PO (19:26)
[2021-04-09] MEDS ORDERED: LOVA1CAP17 PO (19:26)
[2021-04-09] MEDS ORDERED: HYDR2TAB2 PO (19:26)
[2021-04-09] MEDS ORDERED: MORPHINE 4 MG/ML 1ML VIAL/SYRINGE (J2270) IV ONE (19:45)
[2021-04-09] MEDS ORDERED: ONDANSETRON 4MG/2ML VIAL IV ONE (19:45)
[2021-04-09] MEDS ORDERED: NS 1,000 ML IV ONE (19:45)
[2021-04-09] MEDS ORDERED: BACTDSTA PO (20:34)
[2021-04-09] MEDS ORDERED: ALLO300T2 PO (20:34)
[2021-04-09] MEDS ORDERED: MM S100C PO (20:34)
[2021-04-09] MEDS ORDERED: OMEP1CAP73 PO (20:34)
[2021-04-09] MEDS ORDERED: MIRT-60 PO (20:34)
[2021-04-09] MEDS ORDERED: PROC10TA4 PO (20:34)
[2021-04-09] MEDS ORDERED: LIDVISCBTL SSP (20:34)
[2021-04-09] MEDS ORDERED: ACET1TAB55 PO (20:34)
[2021-04-09] MEDS ORDERED: CLAR10CA3 PO (20:34)
[2021-04-09] MEDS ORDERED: HOME MED LIST COMPLETE! XX SCH (20:35)
[2021-04-09 21:02] LABS: BASO % 1.5 % (0.0-1.0); EOS % 2.9 % (0.0-3.0); LYMPH # 0.1 10^3/uL (1.5-5.0); LYMPH % 13.2 % (24.0-44.0); MEAN CORPUSCULAR HEMOGLOBIN 33.2 pg (27.0-33.0); MEAN CORPUSCULAR HGB CONC 34.5 g/dl (32.0-36.5); MEAN CORPUSCULAR VOLUME 96.2 fl (80.0-96.0); MONO % 4.4 % (2.0-8.0); NEUTROPHILS % 76.5 % (36.0-66.0); PLATELET COUNT, AUTOMATED 129 10^3/uL (150-450); RED BLOOD COUNT 2.11 10^6/uL (4.00-5.40)
[2021-04-09 21:07] LABS: RSV AMPLIFICATION NEGATIVE (NEGATIVE)
[2021-04-09 21:07] LABS: HEMATOCRIT 20.3 % (36.0-47.0); WHITE BLOOD COUNT 0.7 10^3/uL (4.0-10.0)
[2021-04-09 21:12] LABS: NEUTROPHILS # 0.5 10^3/uL (1.5-8.5)
[2021-04-09 21:21] LABS: ERYTHROCYTE SEDIMENTATION RATE 128 mm/hr (0-30)
[2021-04-09 21:39] LABS: ALBUMIN 2.4 GM/DL (3.2-5.2); ALT/SGPT 19 U/L (12-78); BILIRUBIN,TOTAL 0.9 MG/DL (0.2-1.0); BLOOD UREA NITROGEN 16 MG/DL (7-18); CALCIUM LEVEL 7.6 MG/DL (8.8-10.2); CARBON DIOXIDE LEVEL 25 MEQ/L (21-32); CHLORIDE LEVEL 101 MEQ/L (98-107); CK-MB VALUE MASS < 1.0 NG/ML (<3.6); CPK CREATINE PHOSPHOKINASE 10 U/L (26-192); CREATININE FOR GFR 0.53 MG/DL (0.55-1.30); GLOMERULAR FILTRATION RATE > 60.0 (>39); GLUCOSE, FASTING 115 MG/DL (70-100); POTASSIUM SERUM 3.5 MEQ/L (3.5-5.1); SODIUM LEVEL 132 MEQ/L (136-145); TROPONIN I < 0.02 NG/ML (< 0.10)
[2021-04-09] MEDS ORDERED: ISOVUE-370 76% 100ML VIAL As Ordered ONE (21:42)
[2021-04-09] MEDS ORDERED: LIDOCAINE 2% 5ML JELLY UROJET TOP ONE (21:55)
[2021-04-09] MEDS ORDERED: VANCOMYCIN HCL 1,000 MG, VIAL MATE ADAPTER 1 EACH in NS 250 ML IV ONE (21:55)
[2021-04-09] MEDS ORDERED: CEFEPIME HCL 2 GM in D5W MINI-BAG PLUS 50 ML IV ONE (21:55)
--- NOTE | 2021-04-09 21:56 | REPVR ---
PROCEDURE INFORMATION: Exam: XR Chest Exam date and time: 04/09/2021 8:48 PM Age: 76 years old Clinical indication: Other: Weakness TECHNIQUE: Imaging protocol: XR of the chest. Views: 1 view. COMPARISON: CT Chest with contrast 02/22/2021 6:39 PM FINDINGS: Tubes, catheters and devices: Tunneled left IJ vascular catheter extends to the cavoatrial junction. Lungs: Lungs are diffusely hypoexpanded. No evidence of pulmonary edema. No focal consolidation or parenchymal lung mass. Pleural spaces: No pleural effusion. No pneumothorax. Heart/Mediastinum: Heart and mediastinal contours are normal, given the degree of inflation. Bones/joints: Median sternotomy and coronary bypass changes are present. Osseous structures show no concerning abnormality. Old posttraumatic change of the proximal right humerus Soft tissues: No asymmetry of the extrathoracic soft tissues. IMPRESSION: Hypoexpanded lungs, without evidence of active cardiopulmonary disease Electronically signed by: Ho Valentin On 04/09/2021 21:56:04 PM
--- NOTE | 2021-04-09 22:17 | REPVR ---
PROCEDURE INFORMATION: Exam: CT Head Without Contrast Exam date and time: 04/09/2021 10:02 PM Age: 76 years old Clinical indication: Pain; Headache; Other: Right side; Additional info: Right sided headache TECHNIQUE: Imaging protocol: Computed tomography of the head without contrast. Radiation optimization: All CT scans at this facility use at least one of these dose optimization techniques: automated exposure control; mA and/or kV adjustment per patient size (includes targeted exams where dose is matched to clinical indication); or iterative reconstruction. COMPARISON: CT Head W/O FOLL BY WITH CONTR 02/22/2021 6:39 PM FINDINGS: Brain: No intracranial mass, mass effect or midline shift. No acute intracranial hemorrhage. No CT evidence of acute cortical infarct. Mild decreased attenuation in periventricular/centrum semiovale white matter. Ventricles, cisterns, and sulci are normal in size for age. Paranasal sinuses: Imaged paranasal sinuses are normally aerated. Mastoid air cells: Mastoid air cells and middle ear structures are normally aerated. Orbital cavity: Imaged orbits are unremarkable. Bones/joints: No calvarial fracture or destructive process. Soft tissues: No focal extracranial soft tissue swelling. IMPRESSION: No acute or concerning focal intracranial abnormality. Electronically signed by: Ho Valentin On 04/09/2021 22:17:11 PM
--- NOTE | 2021-04-09 22:19 | REPVR ---
PROCEDURE INFORMATION: Exam: CT Orbits With Contrast Exam date and time: 04/09/2021 10:02 PM Age: 76 years old Clinical indication: Ocular pain; Right; Additional info: Right sided headache TECHNIQUE: Imaging protocol: Computed tomography images of the orbits with intravenous contrast. Radiation optimization: All CT scans at this facility use at least one of these dose optimization techniques: automated exposure control; mA and/or kV adjustment per patient size (includes targeted exams where dose is matched to clinical indication); or iterative reconstruction. Contrast material: ISOVUE 370; Contrast volume: 75 ml; Contrast route: INTRAVENOUS (IV); COMPARISON: CT Head W/O FOLL BY WITH CONTR 02/22/2021 6:39 PM FINDINGS: Mild asymmetric right infraorbital superficial anterior soft tissue swelling. Bony orbits show normal alignment without acute fracture. No lytic or blastic bone lesion. No infiltration of intraorbital fat to indicate inflammatory process. Optic globes, optic nerves and extraocular muscles appear normal. Paranasal sinuses show normal aeration with no abnormal opacification. Soft tissues of the posterior nasopharynx are symmetric and normal. Visualized skull base structures and TMJ's are unremarkable. IMPRESSION: Mild anterior right infraorbital facial soft tissue swelling. No focal fluid collection. This may represent mild preseptal orbital cellulitis. No postseptal extension or ocular globe abnormality. Electronically signed by: Ho Valentin On 04/09/2021 22:19:26 PM
[2021-04-09] MEDS ORDERED: LR 1,000 ML IV ONE (23:20)
[2021-04-09] MEDS ORDERED: ACETAMINOPHEN TAB 650MG DOSE (2X325MG) PO PRN (23:20)
[2021-04-09] MEDS ORDERED: MAALOX 30 ML SUSP *UDC PO PRN (23:20)
[2021-04-09] MEDS ORDERED: MOM 30ML SUSPENSION UDC PO PRN (23:20)
--- NOTE | 2021-04-09 23:26 | HPEPDOC ---
[facility] Medical History & Physical Date of Admission Apr 09, 2021 Date of Service: Apr 09, 2021 Primary Care Physician: Jessica Almeida Attending Physician: INDY UPTON MD History and Physical TIME OF SERVICE: 1145pm CHIEF COMPLAINT: weakness HISTORY OF PRESENT ILLNESS: had her second session of chemo on Saturday and also had some kind of injection into her spine; her family is not sure what was administered. Today her and son noticed that she was more weak and confused. She has not had fevers or chills but her appetite has been poor accompanied her to the ER. The area surrounding right eye has been swollen and tender but she denied having pain when she moves the eye or any changes in her vision. 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 HOME MEDICATIONS: Please see below. PHYSICAL EXAMINATION: Vital Signs Date Time Temp Pulse Resp B/P (MAP) Pulse Ox O2 Delivery O2 Flow Rate FiO2 04/09/21 19:11 98.4 115 18 99/56 (70) 97 Room Air GENERAL APPEARANCE: slim build/ lethargic / NAD HEENT: right mannie-orbital area, especially right anterior zygomatic area is swollen, slightly red and tender with palpation/ CIARA in both eyes/ there is not conjunctival injection/ there is no discharge from the eyes CARDIOVASCULAR: RRR/NMRG/ no LE edema LUNGS: CTAB on RA ABDOMEN: contour flat MUSCULOSKELETAL: she is too weak to get up or reposition herself without assistance INTEGUMENT: there is a small codi on her back (possibly for the interthecal spine injection?) the skin surrounding the codi is not red, swollen and doesnt have excessive discharge NEUROLOGICAL: speech not dysarthric PSYCHIATRIC: alert and oriented / able to answer simple questions LABORATORY DATA: IMAGING: Chest xray IMPRESSION: Hypoexpanded lungs, without evidence of active cardiopulmonary disease CT head IMPRESSION: No acute or concerning focal intracranial abnormality. CT orbit IMPRESSION: Mild anterior right infraorbital facial soft tissue swelling. No focal fluid collection. This may represent mild preseptal orbital cellulitis. No postseptal extension or ocular globe abnormality. 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 PLAN: 1 Sepsis She has the following SIRS criteria leukocytosis, and tachycardia Possible source is preseptal cellulitis vs other cause TBD Her qSOFA score is 1 which is not high risk Plan: admit to PCU bc of hypotension / telemetry / switch to lactate ringers (based on the initial weight of 128kg that was recorded she received over 3L of fluid; unfortunately this was an error, by the time we reviewed her actual weight which was 56.9 kg she had already received the fluids, we will hold off additional fluids and monitor her for signs of fluid overload ) /f/u pancx results / Acetaminophen PRN for fever / target MAP at of least 65 to 70 / f/u Is and Os with target UOP of at least 0.5 ml/kg/H / f/u FSBS w target serum glucose 140-180 while acutely ill 2 Pre-septal Cellulitis Plan: switch from Cefapime to Cefdinir (per [place] recandres on treating preseptal cellultis she has PCN allergies therefore we cant treat her with Augmentin) / c/w Vancomycin pending MRSA results 3 Pancytopenia Anemia with moderate Neutropenia (based on ANC # of 535.5) Likely chemo induced She doesnt have a fever Her ANC is 535.5 Plan: f/u add on iron studies / transfuse 1 unit of PRBCs / neutropenic precautions / f/u repeat CBC 4 Encephalopathy Likely due to infection Plan: neurochecks 5 Hypotension / She has a hx of HTN Plan: IVF / resume Metoprolol in the morning 6 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 / c/w hydromorphone PRN w docusate DVT px w Lovenox (Vandana Prediction Score to determine the in-patient risk of VTE & need for anticoagulation is 8. Individuals with a Vandana Score <4 are low risk of VTE and thromboprophylaxis should be considered on a [id number] basis while individuals with a Vandana score >4 are high risk for VTE and will likely benefit from thromboprophylaxis unless the patient has major contraindication such as m ajor bleeding or thrombocytopenia). Dispo: home vs SNF after at least 2 midnights stay Her LACE Index Score is 13 points which indicates that she is at high risk for re-admission or within the next 30 days. A PFS consult has been placed for discharge planning. Home Medications Scheduled Ergocalciferol (Vitamin D2) (Vitamin D2) 50,000 Units Cap, 50,000 UNITS PO QMONTH 1ST OF THE MONTH Loratadine (Claritin) 10 Mg Capsule, 10 MG PO Q12H Metoprolol Tartrate (Metoprolol Tartrate) 25 Mg Tablet, 12.5 MG PO BID Mirtazapine (Remeron) 30 Mg Tablet, 30 MG PO QHS [place]-3 Acid Ethyl Esters ([place]-3 Acid Ethyl Esters) 1 Gm Capsule, 1 GM PO DAILY Omeprazole (Omeprazole) 20 Mg Capsule.dr, 20 MG PO 4XWK MON,WED,FRI,SAT Pregabalin (Lyrica) 75 Mg Capsule, 75 MG PO BID Simvastatin (Simvastatin) 20 Mg Tab, 20 MG PO QHS Sulfamethoxazole/Trimethoprim (Sulfamethoxazole-Tmp Ds Tablet) 1 Each Tablet, 1 TAB PO 3XW TWICE DAILY ON SAT,SAT,FRI allopurinoL (allopurinoL) 300 Mg Tablet, 300 MG PO DAILY Scheduled PRN Acetaminophen (Acetaminophen) 325 Mg Tablet, 650 MG PO Q4H PRN for PAIN LEVEL 1- 5 Docusate Sodium (Stool Softener) 100 Mg Capsule, 100 MG PO BID PRN for CONSTI PATION Hydromorphone HCl (Hydromorphone HCl) 2 Mg Tablet, 2 MG PO Q4H PRN for PAIN LEVEL 6-10 Lidocaine HCl (Lidocaine HCl Viscous) 100 Ml Solution, 5 ML SSP ASDIRECTED PRN for MOUTH SORES Prochlorperazine Maleate (Prochlorperazine Maleate) 10 Mg Tablet, 10 MG PO Q6H PRN for NAUSEA OR VOMITING Allergies Coded Allergies: Penicillins (Verified Allergy, Intermediate, RASH, 02/13/21) INDY UPTON MD Apr 09, 2021 23:26
[2021-04-10] VITALS (15 sets, daily range): BP systolic 100–155; BP diastolic 51–71
[2021-04-10 00:05] LABS: PERCENT SATURATION 6.7 % (13.2-45.0)
[2021-04-10] MEDS ORDERED: VIAL MATE ADAPTER XX ONE (00:14)
[2021-04-10] MEDS ORDERED: PROCHLORPERAZINE 5 MG TAB (S0183) PO PRN (02:25)
[2021-04-10] MEDS ORDERED: DOCUSATE SODIUM 100MG CAPSULE PO PRN (02:25)
[2021-04-10] MEDS ORDERED: LIDOCAINE VISCOUS 2% SOLN 15ML UDC SSP PRN (02:25)
[2021-04-10] MEDS: MIRTAZAPINE 15 MG TAB PO SCH ×2 (03:49→20:31)
[2021-04-10] MEDS: PREGABALIN 75 MG CAP(LYRICA) PO SCH ×3 (03:49→20:31)
[2021-04-10] MEDS: METOPROLOL TART 12.5 MG PER 1/2 TAB PO SCH ×3 (03:49→20:32)
[2021-04-10 05:29] LABS: MEAN CORPUSCULAR HGB CONC 34.3 g/dl (32.0-36.5); MEAN CORPUSCULAR VOLUME 93.2 fl (80.0-96.0); PLATELET COUNT, AUTOMATED 104 10^3/uL (150-450); RED BLOOD COUNT 2.19 10^6/uL (4.00-5.40)
--- NOTE | 2021-04-10 05:46 | ECGEPIP ---
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
[2021-04-10 05:51] LABS: BLOOD UREA NITROGEN 11 MG/DL (7-18); CALCIUM LEVEL 7.4 MG/DL (8.8-10.2); CARBON DIOXIDE LEVEL 25 MEQ/L (21-32); CHLORIDE LEVEL 110 MEQ/L (98-107); CREATININE FOR GFR 0.34 MG/DL (0.55-1.30); GLOMERULAR FILTRATION RATE > 60.0 (>39); GLUCOSE, FASTING 93 MG/DL (70-100); POTASSIUM SERUM 3.3 MEQ/L (3.5-5.1); SODIUM LEVEL 139 MEQ/L (136-145)
[2021-04-10] MEDS ORDERED: CEFDINIR 300 MG CAP (OMNICEF) PO SCH (06:00)
[2021-04-10 06:27] LABS: HEMATOCRIT 20.4 % (36.0-47.0); WHITE BLOOD COUNT 1.2 10^3/uL (4.0-10.0)
[2021-04-10 07:37] LABS: ATYPICAL LYMPH 1 % (0-5); BASOPHILS 2 % (0-1); EOSINOPHILS 12 % (0-3); LYMPHOCYTES 9 % (16-44); MONOCYTES 9 % (0-5); NEUTROPHILS 62 % (28-66)
[2021-04-10 07:38] LABS: POIKILOCYTOSIS 1+
[2021-04-10 07:39] LABS: ANISOCYTOSIS 1+; OVALOCYTES 1+; PLATELET ESTIMATE DECREASED (NORMAL)
[2021-04-10] MEDS ORDERED: ENOXAPARIN 40MG/0.4ML SYRINGE (J1650 PER 10MG) SC SCH (09:00)
[2021-04-10] MEDS ORDERED: MORPHINE 4 MG/ML 1ML VIAL/SYRINGE (J2270) IV PRN (09:15)
[2021-04-10] MEDS: allopurinoL 300 MG TAB PO SCH (09:33)
[2021-04-10] MEDS: VANCOMYCIN HCL 750 MG, VIAL MATE ADAPTER 1 EACH in NS 250 ML IV SCH ×2 (09:35→17:02)
[2021-04-10] MEDS: OMEPRAZOLE 20 MG CAP PO SCH (09:35)
[2021-04-10] MEDS: cefTRIAXone SOD 1 GM in D5W MINI-BAG PLUS 50 ML IV SCH (10:00)
[2021-04-10 11:14] LABS: FOLATE 11.7 NG/ML (>5.4)
[2021-04-10] MEDS ORDERED: POTASSIUM CHLORIDE 10 MEQ SR TABLET PO ONE (12:00)
--- NOTE | 2021-04-10 12:10 | IPNPDOC ---
Text Note Date of Service The patient was seen on 04/10/21. NOTE SUBJECTIVE: -Has significant R eye pain this morning -Expressed desire to be DNR/DNI, MOLST updated in chart OBJECTIVE: VITALS: see below GENERAL APPEARANCE: NAD HEENT: right mannie-orbital area particularly anterior zygomatic area is swollen, with erythema and TTP, full range of motion in both eyes however. No conjunctival injection, no eye discharge anicteric CARDIOVASCULAR: RRR, no m/r/g LUNGS: CTAB without any wheezing, rhonchi or crackles, breathing comfortably on room air ABDOMEN: Normoactive sounds, soft, NTND INTEGUMENT: there is a small codi on her back (possibly for the interthecal spine injection?) the skin surrounding the codi is not red, swollen and doesnt have excessive discharge NEUROLOGICAL: speech not dysarthric PSYCHIATRIC: alert and oriented / able to answer simple questions LABORATORY DATA: Reviewed WBC 1.2 Hgb 7 platelets 104 na 139 K 3.3 BUN 11 Cr 0.34 ESR 128 Fe 9 Ferritin 817 IMAGING: Chest xray IMPRESSION: Hypoexpanded lungs, without evidence of active cardiopulmonary disease CT head IMPRESSION: No acute or concerning focal intracranial abnormality. CT orbit IMPRESSION: Mild anterior right infraorbital facial soft tissue s welling. No focal fluid collection. This may represent mild preseptal orbital cellulitis. No postseptal extension or ocular globe abnormality. 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 PLAN: Sepsis likely 2/2 preseptal cellulitis -f/u pancx results -Acetaminophen PRN for fever -vanc/ceftriaxone 2 Pre-septal Cellulitis -c/w Vancomycin pending MRSA results, ceftriaxone -pain management with PO dilaudid PRN for moderate pain and IV morphine PRN for severe pain 3 Pancytopenia 2/2 recent chemo -s/p 1 unit of PRBCs with hgb<7, will give 2 more units this AM -neutropenic precautions -will talk to heme about Neupogen? 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 on dose adjusted R-EPOCH with intrathecal methotrexate GCSF stimulator support PRN. -c/w hydromorphone PRN w docusate -weak, PT/OT DVT px w Lovenox Dispo: home vs SNF after at least 2 midnights stay VS,Fishbone, I+O VS, Fishbone, I+O Laboratory Tests 04/09/21 20:52 04/10/21 05:02 Vital Signs Date Time Temp Pulse Resp B/P (MAP) Pulse Ox O2 Delivery O2 Flow Rate FiO2 04/10/21 07:32 97.0 75 18 115/53 (73) 98 Room Air I&O- Last 24 Hours up to 6 AM 04/10/21 06:00 Intake Total 2450 ml Output Total 1600 ml Balance 850 ml JENNIFER SMITH MD Apr 10, 2021 09:45
[2021-04-10] MEDS ORDERED: DARBEPOETIN 200MCG/0.4ML *NON-DIALYSIS* SYRINGE (J0881 PER 1MCG) SC ONE (15:00)
[2021-04-10] MEDS: FILGRASTIM 480 MCG/0.8 ML SYRINGE (J1442) SC SCH (17:01)
--- NOTE | 2021-04-10 18:53 | CR.PDOC ---
General Date of Consultation: Apr 10, 2021 Referring Provider: JENNIFER SMITH MD Primary Care Physician: Jessica Almeida Attending Physician: JOSE ZAPATA MD Consultation REASON FOR CONSULTATION/high-grade B-cell lymphoma s/p 2 cycles of chemotherapy with modified REPOCH with pancytopenia and increasing weakness. HISTORY OF PRESENT ILLNESS: [I had the pleasure of seeing Ms. Beatriz Ortiz in consultation for pancytopenia due to chemotherapy which she received at [facility] in [place]. Patient history dates back to 2 months when she developed sinus infection and in November she developed complete hearing loss on the right side. Initially she was treated for sinus infection and acute sinusitis by Dr. Montelongo with antibiotics but condition did not resolve so she was seen by ENT surgeon and he also gave her 10 days of antibiotic. When condition did not resolve a CT scan was done which revealed a mass in adenoid area and biopsy revealed high-grade B cell non-Hodgkin lymphoma. Patient was transferred to [facility] where she received first cycle of chemotherapy with R- EPOCH over 5 days from 26 February 2021 till 03 March 2021. Second cycle was given from 27 March 2021 till 01 April 2021. She has been feeling bad weak tired and fatigued out. She developed anorexia and no energy at all and was brought into emergency room. Patient was found to be pancytopenic with white blood cell count of 0.7 and hemoglobin of 7. Patient has been started on Neupogen 40 mcg subcu daily as well as has been given 1 dose of Aranesp 200 mcg subcu x1. She h as been started on vancomycin and Zosyn to cover her infection especially Pseudomonas. At this point she is feeling a little better although still feels weak and is unable to eat any solid food. Patient is getting some soft diet and mainly liquid food. She is better than last evening. ALLERGIES: Please see below. HOME MEDICATIONS: Please see below. PAST MEDICAL HISTORY: 1. 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 2. [History of breast cancer SP bilateral mastectomies in remission 3. Hypertension 4. CAD/CABG 5. Carotid artery disease s/p endarterectomy]. PAST SURGICAL HISTORY: 1. [Carotid endarterectomy bilateral] 2. [Resection of tubular adenoma of colon 3. Nephrolithiasis SP cystoscopy with right ureteroscopy with basket extraction of stone] FAMILY HISTORY: Significant for coronary artery disease SOCIAL HISTORY: Denies tobacco or alcohol abuse REVIEW OF SYSTEMS: CONSTITUTIONAL: [Feels weak tired and fatigued out]. HEENT: [Has history of nasopharyngeal non-Hodgkin lymphoma but currently is able to breathe through nose]. CARDIOVASCULAR: [Denies chest pain]. RESPIRATORY: [Denies cough phlegm or wheezing]. GENITOURINARY: [No burning urination]. MUSCULOSKELETAL: [Generalized weakness]. GASTROINTESTINAL: [Constipation for last 1 week]. SKIN: [No rash]. NEUROLOGICAL: [Generalized weakness]. PSYCHIATRIC: [Feels rundown]. PHYSICAL EXAMINATION: VITAL SIGNS: Please see below. GENERAL APPEARANCE: [Pale looking lady in no acute distress. Looks weak tired and fatigued out]. HEENT: [WNL EOMI oral cavity clear without mucositis or thrush]. RESPIRATORY: [Lungs clear to auscultation percussion]. CARDIOVASCULAR: [Normal heart sounds]. ABDOMEN: [Soft bowel sounds present no hepatosplenomegaly]. EXTREMITIES: [No pedal edema]. NEUROLOGICAL: [No gross sensory or motor deficit]. PSYCHIATRIC: [Mild anxiety]. LABORATORY DATA: Please see below. 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 Patient has received 2 cycles of chemotherapy with modified R-EPOCH. Patient has developed increasing weakness and ended up in emergency room. Patient was found to have pancytopenia with severe anemia and leukopenia. Patient has been given 2 units of packed red cells and 30 units of packed red cells and is in progression. I have already discussed this case with admitting attending and she has already started her on Neupogen and Aranesp. Neupogen should be continued 40 mcg subcu daily while Aranesp can be given 1 dose every 2 weeks. Patient CBC should be repeated every day and she should continue Neupogen until absolute neutrophil count is more than 1500. Patient is planned to have 6 cycles of R-EPOCH at [facility]. For now continue IV antibiotic with Zosyn and vancomycin. Once patient absolute neutrophil count is more than 500 she can come out of reverse isolation. Vital Signs/I&O Vital Signs Date Time Temp Pulse Resp B/P (MAP) Pulse Ox O2 Delivery O2 Flow Rate FiO2 04/10/21 17:15 98.6 76 20 130/64 98 Room Air I&O- Last 24 Hours up to 6 AM 04/10/21 06:00 Intake Total 2450 ml Output Total 1600 ml Balance 850 ml Laboratory Data Labs 24H Laboratory Tests 2 04/09/21 20:09: Coronavirus (COVID-19)(PCR) NEGATIVE, Influenza Type A (RT-PCR) NEGATIVE, Influenza Type B (RT-PCR) NEGATIVE, Respiratory Syncytial Virus (PCR) NEGATIVE 04/09/21 20:52: Immature Granulocyte % (Auto) 1.5, Neutrophils (%) (Auto) 76.5H, Lymphocytes (%) (Auto) 13.2L, Monocytes (%) (Auto) 4.4, Eosinophils (%) (Auto) 2.9, Basophils (%) (Auto) 1.5H, Neutrophils # (Auto) 0.5L, Lymphocytes # (Auto) 0.1L, Monocytes # (Auto) 0.0, Eosinophils # (Auto) 0.0, Basophils # (Auto) 0.0, Nucleated Red Blood Cells % (auto) 0.0, Erythrocyte Sedimentation Rate 128H, Anion Gap 6L, Glomerular Filtration Rate > 60.0, Calcium Level 7.6L, Total Bilirubin 0.9, Aspartate Amino Transf (AST/SGOT) 15, Alanine Aminotransferase (ALT/SGPT) 19, Alkaline Phosphatase 77, Total Creatine Kinase 10L, Creatine Kinase MB < 1.0, Creatine Kinase MB Relative Index 10.00H, Troponin I < 0.02, C-Reactive Protein, Quantitative 17.60H, Total Protein 5.0L, Albumin 2.4L, Albumin/Globulin Ratio 0.9L 04/09/21 22:43: Urine Color YELLOW, Urine Appearance CLEAR, Urine pH 6.0, Urine Specific [employer] 1.020, Urine Protein NEGATIVE, Urine Glucose (UA) NEGATIVE, Urine Ketones NEGATIVE, Urine Blood NEGATIVE, Urine Nitrite NEGATIVE, Urine Bilirubin NEGATIVE, Urine Urobilinogen 0.2, Urine Leukocyte Esterase NEGATIVE, Urine WBC (Auto) 1, Urine RBC (Auto) 1, Urine Hyaline Casts (Auto) 0, Urine Bacteria (Auto) NEGATIVE, Urine Squamous Epithelial Cells 1, Urine Sperm (Auto) 04/09/21 23:32: Lactic Acid Level 0.9, Iron Level 9L, Total Iron Binding Capacity 134L, Transferrin % Saturation 6.7L, Ferritin 817H, Vitamin B12 Level 458, Folate 11.7 04/10/21 05:02: Neutrophils (%) (Auto) , Neutrophils # (Auto) , Nucleated Red Blood Cells % (auto) 0.0, Neutrophils 62, Band Neutrophils 5, Lymphocytes (Manual) 9L, Monocytes (Manual) 9H, Eosinophils (Manual) 12H, Basophils (Manual) 2H, Atypical Lymphocytes 1, Poikilocytosis 1+, Anisocytosis 1+, Ovalocytes 1+, Platelet Estimate DECREASED, Anion Gap 4L, Glomerular Filtration Rate > 60.0, Calcium Level 7.4L 04/10/21 15:24: Vancomycin Level Trough 9.4L CBC/BMP Laboratory Tests 04/09/21 20:52 04/10/21 05:02 Microbiology Microbiology 04/09/21 Blood Culture, Received Pending 04/09/21 Blood Culture, Received Pending Allergies Coded Allergies: Penicillins (Verified Allergy, Intermediate, RASH, 02/13/21) Home Medications Scheduled Ergocalciferol (Vitamin D2) (Vitamin D2) 50,000 Units Cap, 50,000 UNITS PO QMONTH, (Reported) 1ST OF THE MONTH Loratadine (Claritin) 10 Mg Capsule, 10 MG PO Q12H, (Reported) Metoprolol Tartrate (Metoprolol Tartrate) 25 Mg Tablet, 12.5 MG PO BID, (Reported) Mirtazapine (Remeron) 30 Mg Tablet, 30 MG PO QHS, (Reported) [place]-3 Acid Ethyl Esters ([place]-3 Acid Ethyl Esters) 1 Gm Capsule, 1 GM PO DAILY, (Reported) Omeprazole (Omeprazole) 20 Mg Capsule.dr, 20 MG PO 4XWK, (Reported) MON,WED,FRI,SAT Pregabalin (Lyrica) 75 Mg Capsule, 75 MG PO BID, (Reported) Simvastatin (Simvastatin) 20 Mg Tab, 20 MG PO QHS, (Reported) Sulfamethoxazole/Trimethoprim (Sulfamethoxazole-Tmp Ds Tablet) 1 Each Tablet, 1 TAB PO 3XW, (Reported) TWICE DAILY ON MON,WED,FRI allopurinoL (allopurinoL) 300 Mg Tablet, 300 MG PO DAILY, (Reported) Scheduled PRN Acetaminophen (Acetaminophen) 325 Mg Tablet, 650 MG PO Q4H PRN for PAIN LEVEL 1- 5, (Reported) Docusate Sodium (Stool Softener) 100 Mg Capsule, 100 MG PO BID PRN for CONSTIPATION, (Reported) Hydromorphone HCl (Hydromorphone HCl) 2 Mg Tablet, 2 MG PO Q4H PRN for PAIN LEVEL 6-10, (Reported) Lidocaine HCl (Lidocaine HCl Viscous) 100 Ml Solution, 5 ML SSP ASDIRECTED PRN for MOUTH SORES, (Reported) Prochlorperazine Maleate (Prochlorperazine Maleate) 10 Mg Tablet, 10 MG PO Q6H PRN for NAUSEA OR VOMITING, (Reported) JOSE ZAPATA MD Apr 10, 2021 18:52
[2021-04-10] MEDS: HYDROmorphone 2 MG TAB PO PRN (21:47)
[2021-04-11 00:05] VITALS: BP 146/70
[2021-04-11] MEDS: cefTRIAXone SOD 1 GM in D5W MINI-BAG PLUS 50 ML IV SCH ×3 (00:25→21:55)
[2021-04-11 01:11] LABS: HEMOGLOBIN 10.9 g/dl (12.0-15.5); MEAN CORPUSCULAR HEMOGLOBIN 31.9 pg (27.0-33.0); MEAN CORPUSCULAR HGB CONC 35.2 g/dl (32.0-36.5); MEAN CORPUSCULAR VOLUME 90.6 fl (80.0-96.0); PLATELET COUNT, AUTOMATED 108 10^3/uL (150-450); RED BLOOD COUNT 3.42 10^6/uL (4.00-5.40); WHITE BLOOD COUNT 4.1 10^3/uL (4.0-10.0)
[2021-04-11] MEDS: VANCOMYCIN HCL 750 MG, VIAL MATE ADAPTER 1 EACH in NS 250 ML IV SCH ×2 (01:29→08:19)
[2021-04-11 04:00] VITALS: BP 144/67
[2021-04-11] MEDS: HYDROmorphone 2 MG TAB PO PRN ×3 (05:20→21:56)
[2021-04-11 07:00] LABS: HEMATOCRIT 30.5 % (36.0-47.0); HEMOGLOBIN 10.6 g/dl (12.0-15.5); MEAN CORPUSCULAR HEMOGLOBIN 31.4 pg (27.0-33.0); MEAN CORPUSCULAR HGB CONC 34.8 g/dl (32.0-36.5); MEAN CORPUSCULAR VOLUME 90.2 fl (80.0-96.0); PLATELET COUNT, AUTOMATED 111 10^3/uL (150-450); RED BLOOD COUNT 3.38 10^6/uL (4.00-5.40); WHITE BLOOD COUNT 4.5 10^3/uL (4.0-10.0)
[2021-04-11 07:26] LABS: BLOOD UREA NITROGEN 8 MG/DL (7-18); CALCIUM LEVEL 7.3 MG/DL (8.8-10.2); CARBON DIOXIDE LEVEL 24 MEQ/L (21-32); CHLORIDE LEVEL 109 MEQ/L (98-107); CREATININE FOR GFR 0.34 MG/DL (0.55-1.30); GLOMERULAR FILTRATION RATE > 60.0 (>39); GLUCOSE, FASTING 83 MG/DL (70-100); POTASSIUM SERUM 3.8 MEQ/L (3.5-5.1); SODIUM LEVEL 138 MEQ/L (136-145)
[2021-04-11 07:58] LABS: ATYPICAL LYMPH 2 % (0-5); EOSINOPHILS 3 % (0-3); LYMPHOCYTES 6 % (16-44); METAMYELOCYTES 2 % (0-0); MONOCYTES 2 % (0-5); NEUTROPHILS 74 % (28-66)
[2021-04-11 08:00] VITALS: BP 123/58
[2021-04-11 08:00] LABS: ANISOCYTOSIS 1+; OVALOCYTES 1+; PLATELET ESTIMATE DECREASED (NORMAL); POIKILOCYTOSIS 1+
[2021-04-11] MEDS: allopurinoL 300 MG TAB PO SCH (10:28)
[2021-04-11] MEDS: METOPROLOL TART 12.5 MG PER 1/2 TAB PO SCH ×2 (10:28→21:54)
[2021-04-11] MEDS: PREGABALIN 75 MG CAP(LYRICA) PO SCH ×2 (10:28→21:53)
[2021-04-11] MEDS: FILGRASTIM 480 MCG/0.8 ML SYRINGE (J1442) SC SCH (10:29)
[2021-04-11 10:41] LABS: BASOPHILS 1 % (0-1); EOSINOPHILS 4 % (0-3); LYMPHOCYTES 8 % (16-44); METAMYELOCYTES 1 % (0-0); MONOCYTES 5 % (0-5); NEUTROPHILS 70 % (28-66)
[2021-04-11 10:43] LABS: ANISOCYTOSIS 1+; PLATELET ESTIMATE DECREASED (NORMAL); POIKILOCYTOSIS 1+
[2021-04-11] MEDS ORDERED: VANCOMYCIN HCL 750 MG, VIAL MATE ADAPTER 1 EACH in NS 250 ML IV SCH (12:00)
--- NOTE | 2021-04-11 12:11 | IPNPDOC ---
Text Note Date of Service The patient was seen on 04/11/21. NOTE SUBJECTIVE: -R eye swelling has improved significantly OBJECTIVE: VITALS: see below GENERAL APPEARANCE: NAD HEENT: right mannie-orbital area swollen, erythema resolved, full range of motion in both eyes however. No conjunctival injection, no eye discharge anicteric CARDIOVASCULAR: RRR, no m/r/g LUNGS: CTAB without any wheezing, rhonchi or crackles, breathing comfortably on room air ABDOMEN: Normoactive sounds, soft, NTND INTEGUMENT: No rashes or erythema NEUROLOGICAL: speech not dysarthric PSYCHIATRIC: alert and oriented / able to answer simple questions LABORATORY DATA: Reviewed WBC 4.5 Hgb 10.6 platelets 111 K 3.8 IMAGING: Chest xray IMPRESSION: Hypoexpanded lungs, without evidence of active cardiopulmonary disease CT head IMPRESSION: No acute or concerning focal intracranial abnormality. CT orbit IMPRESSION: Mild anterior right infraorbital facial soft tissue swelling. No focal fluid collection. This may represent mild preseptal orbital cellulitis. No postseptal extension or ocular globe abnormality. 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 PLAN: Sepsis likely 2/2 preseptal cellulitis -f/u pancx results -Acetaminophen PRN for fever -vanc/ceftriaxone -MRSA PCR still to be sent. Doubt MRSA 2 Pre-septal Cellulitis -c/w Vancomycin pending MRSA results, ceftriaxone as well -pain management with PO dilaudid PRN for moderate pain and IV morphine PRN for severe pain 3 Pancytopenia 2/2 recent chemo -s/p 1 unit of PRBCs with hgb<7, will give 2 more units this AM -neutropenic precautions -Consulted onc, neupogen 480 per day until ANC >1500 and gave aranesp x 1 4 Metabolic encephalopathy: resolved -Likely due to infection, treating infection per above 5 Hypotension i/s/o infection -IVF -To resume metoprolol when hemodynamically appropriate 6 High grade B cell lymphoma of the right nasopharynx with destruction of the retropharyngeal and prevertebral spaces -Consulted onc. Recommended neupogen 480 per day until ANC >1500 and gave aranesp x 1 -Recently on dose adjusted R-EPOCH with intrathecal methotrexate GCSF stimulator support PRN. To f/u at [facility] [place] at discharge -c/w hydromorphone PRN w docusate -weak, PT/OT DVT px w Lovenox Dispo: home vs SNF after at least 2 midnights stay. PT/OT, Inpatient on Neup ogen until ANC >1500 VS,Fishbone, I+O VS, Fishbone, I+O Laboratory Tests 04/11/21 01:02 04/11/21 06:50 Vital Signs Date Time Temp Pulse Resp B/P (MAP) Pulse Ox O2 Delivery O2 Flow Rate FiO2 04/11/21 08:00 96.8 70 22 123/58 (79) 97 Room Air l I&O- Last 24 Hours up to 6 AM 04/11/21 06:00 Intake Total 2140 ml Output Total 600 ml Balance 1540 ml JENNIFER SMITH MD Apr 11, 2021 09:04
[2021-04-11 16:00] VITALS: BP 153/80
[2021-04-11 18:15] VITALS: BP 145/73
[2021-04-11] MEDS: MIRTAZAPINE 15 MG TAB PO SCH (21:53)
[2021-04-11 22:00] VITALS: BP 149/66
[2021-04-12 06:00] VITALS: BP 132/61
[2021-04-12 06:29] LABS: HEMATOCRIT 32.7 % (36.0-47.0); HEMOGLOBIN 11.1 g/dl (12.0-15.5); MEAN CORPUSCULAR HEMOGLOBIN 31.1 pg (27.0-33.0); MEAN CORPUSCULAR HGB CONC 33.9 g/dl (32.0-36.5); MEAN CORPUSCULAR VOLUME 91.6 fl (80.0-96.0); PLATELET COUNT, AUTOMATED 134 10^3/uL (150-450); RED BLOOD COUNT 3.57 10^6/uL (4.00-5.40); WHITE BLOOD COUNT 8.3 10^3/uL (4.0-10.0)
[2021-04-12 06:58] LABS: BLOOD UREA NITROGEN 7 MG/DL (7-18); CALCIUM LEVEL 8.5 MG/DL (8.8-10.2); CARBON DIOXIDE LEVEL 27 MEQ/L (21-32); CHLORIDE LEVEL 103 MEQ/L (98-107); CREATININE FOR GFR 0.44 MG/DL (0.55-1.30); GLOMERULAR FILTRATION RATE > 60.0 (>39); GLUCOSE, FASTING 83 MG/DL (70-100); POTASSIUM SERUM 3.3 MEQ/L (3.5-5.1); SODIUM LEVEL 135 MEQ/L (136-145)
[2021-04-12 07:37] LABS: ANISOCYTOSIS 1+; ATYPICAL LYMPH 4 % (0-5); LYMPHOCYTES 3 % (16-44); METAMYELOCYTES 2 % (0-0); MONOCYTES 6 % (0-5); NEUTROPHILS 74 % (28-66); NUCLEATED RED BLOOD CELL 2 % (0-0); PLATELET ESTIMATE DECREASED (NORMAL)
[2021-04-12 07:38] LABS: OVALOCYTES 1+; POIKILOCYTOSIS 1+
[2021-04-12] MEDS ORDERED: CEFDINIR 300 MG CAP (OMNICEF) PO SCH (09:00)
[2021-04-12 09:15] LABS: EOS # 0.1 10^3/uL (0.0-0.5); LYMPH # 0.2 10^3/uL (1.5-5.0); MONO # 0.3 10^3/uL (0.0-0.8)
[2021-04-12 09:31] VITALS: BP 132/61
[2021-04-12] MEDS: allopurinoL 300 MG TAB PO SCH (09:31)
[2021-04-12] MEDS: METOPROLOL TART 12.5 MG PER 1/2 TAB PO SCH (09:31)
[2021-04-12] MEDS: OMEPRAZOLE 20 MG CAP PO SCH (09:31)
[2021-04-12] MEDS: PREGABALIN 75 MG CAP(LYRICA) PO SCH (09:31)
[2021-04-12] MEDS ORDERED: CEFD300CAP PO (09:44)
--- NOTE | 2021-04-12 10:24 | IPNPDOC ---
Text Note Date of Service The patient was seen on 04/12/21. NOTE SUBJECTIVE: -No acute complaints OBJECTIVE: VITALS: see below GENERAL APPEARANCE: NAD HEENT: right mannie-orbital area swollen, erythema resolved, full range of motion in both eyes however. No conjunctival injection, no eye discharge anicteric CARDIOVASCULAR: RRR, no m/r/g LUNGS: CTAB without any wheezing, rhonchi or crackles, breathing comfortably on room air ABDOMEN: Normoactive sounds, soft, NTND INTEGUMENT: No rashes or erythema NEUROLOGICAL: speech not dysarthric PSYCHIATRIC: alert and oriented / able to answer simple questions LABORATORY DATA: Reviewed WBC now 8.3, pending autodiff to calculate ANC IMAGING: Chest xray IMPRESSION: Hypoexpanded lungs, without evidence of active cardiopulmonary disease CT head IMPRESSION: No acute or concerning focal intracranial abnormality. CT orbit IMPRESSION: Mild anterior right infraorbital facial soft tissue swel ling. No focal fluid collection. This may represent mild preseptal orbital cellulitis. No postseptal extension or ocular globe abnormality. 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 PLAN: Sepsis likely 2/2 preseptal cellulitis: resolved -f/u pancx results -Acetaminophen PRN for fever -switch to cefdnir to complete a 10d course in total 2 Pre-septal Cellulitis -switch to cefdnir to complete a 10d course in total -pain management with PO dilaudid PRN per home script 3 Pancytopenia 2/2 recent chemo -s/p 3 unit of PRBCs with hgb<7 -neutropenic precautions -Consulted onc, neupogen 480 per day until ANC >1500 and gave aranesp x 1. checking ANC this AM, suspect she is now ANC>1500 4 Metabolic encephalopathy: resolved -Likely due to infection, treating infection per above 5 Hypotension i/s/o infection -IVF -To resume metoprolol when hemodynamically appropriate 6 High grade B cell lymphoma of the right nasopharynx with destruction of the retropharyngeal and prevertebral spaces -Consulted onc. Recommended neupogen 480 per day until ANC >1500 and gave aranesp x 1 -Recently on dose adjusted R-EPOCH with intrathecal methotrexate GCSF stimulator support PRN. To f/u at [facility] at discharge -c/w hydromorphone PRN w docusate -weak, PT/OT DVT px w Lovenox Dispo: Ongoing PT/OT, Inpatient on Neupogen until ANC >1500, likely to dc home later today after confirmation of ANC count to be >1500 VS,Fishbone, I+O VS, Fishbone, I+O Laboratory Tests 04/12/21 06:16 Vital Signs Date Time Temp Pulse Resp B/P (MAP) Pulse Ox O2 Delivery O2 Flow Rate FiO2 04/12/21 06:00 96.0 75 18 132/61 (84) 96 Room Air I&O- Last 24 Hours up to 6 AM 04/12/21 06:00 Intake Total 250 ml Output Total 1000 ml Balance -750 ml JENNIFER SMITH MD Apr 12, 2021 09:19
--- NOTE | 2021-04-12 10:31 | DS.PDOC ---
Discharge Summary General Date of Admission Apr 09, 2021 at 23:16 Date of Discharge 04/12/2021 Attending Physician: JENNIFER SMITH MD Specialist/Consultants Involve: JOSE ZAPATA MD Discharge Summary PROCEDURES PERFORMED DURING STAY: None ADMITTING DIAGNOSES: Sepsis Metabolic encephalopathy Preseptal cellulitis Pancytopenia DISCHARGE DIAGNOSES: Sepsis Metabolic encephalopathy Preseptal cellulitis Pancytopenia High grade B cell lymphoma of the right nasopharynx with destruction of the retropharyngeal and prevertebral spaces History of remote breast cancer s/p bilateral mastectomies in remission Essential HTN Chronic CAD/CABG x3 Carotid artery disease s/p bilateral carotid endarterectomies DLP History of pulmonary fibrosis COMPLICATIONS/CHIEF COMPLAINT: Pancytopenia,Preseptal Cellulitis,Sepsis. HISTORY OF PRESENT ILLNESS: 76 yo W with a history of recently diagnosed high-grade B-cell lymphoma of the right nasopharynx s/p 2 cycles of chemotherapy with dose adjusted R-EPOCH, history ofbreast cancer s/p bilateral mastectomies in remission, hypertension, CAD s/p CABG and carotid artery disease s/p endarterectomy who presented with R eye swelling and redness with headache, generalized weakness and confused. HOSPITAL COURSE: Patient was found to be pancytopenic with white blood cell count of 0.7 and hemoglobin of 7. She had the following SIRS criteria leukopenia and tachycardia and noted hypotension as well with likely source being the noted preseptal cellulitis confirmed on CT. She was started on IVF, empiric vanc/cefdinir and later vanc/ceftriaxone and vanc was discontinued on day 3. Her eye swelling and erythema improved, while encephalopathy resolved and weakness improved. Her course was c/b the noted pancytopenia 2/2 the recent chemo and heme was consulted and agreed with giving her some filgastrim 480 daily until ANC>1500 which improved and she was switched to cefdnir. She also received 1 dose of aranesp per hematology and 2u of blood with good effect for anemia. She worked with PT and is now being discharged home with services. DISCHARGE MEDICATIONS: Please see below. ALLERGIES: Please see below. PHYSICAL EXAMINATION ON DISCHARGE: VITAL SIGNS: Please see below. GENERAL APPEARANCE: NAD HEENT: Mild right mannie-orbital area swollen, erythema resolved, full range of motion in both eyes however. No conjunctival injection, no eye discharge anicteric CARDIOVASCULAR: RRR, no m/r/g LUNGS: CTAB without any wheezing, rhonchi or crackles, breathing comfortably on room air ABDOMEN: Normoactive sounds, soft, NTND INTEGUMENT: No rashes or erythema NEUROLOGICAL: speech not dysarthric PSYCHIATRIC: alert and oriented / able to answer simple questions LABORATORY DATA: Please see below IMAGING: Chest xray IMPRESSION: Hypoexpanded lungs, without evidence of active cardiopulmonary disease CT head IMPRESSION: No acute or concerning focal intracranial abnormality. CT orbit IMPRESSION: Mild anterior right infraorbital facial soft tissue swelling. No focal fluid collection. This may represent mild preseptal orbital cellulitis. No postseptal extension or ocular globe abnormality. PROGNOSIS: Good ACTIVITY: As tolerated DIET: regular DISCHARGE PLAN: Home with services with 6 more days of cefdinir with close oncology and PCP follow up DISPOSITION: Home with services DISCHARGE INSTRUCTIONS: Home with services with 6 more days of cefdinir with close oncology and PCP follow up ITEMS TO FOLLOWUP ON ON OUTPATIENT: Preseptal cellulitis DISCHARGE CONDITION: Stable TIME SPENT ON DISCHARGE: 34 minutes. Vital Signs/I&Os Vital Signs Date Time Temp Pulse Resp B/P (MAP) Pulse Ox O2 Delivery O2 Flow Rate FiO2 04/12/21 06:00 96.0 75 18 132/61 (84) 96 Room Air I&O- Last 24 Hours up to 6 AM 04/12/21 06:00 Intake Total 250 ml Output Total 1000 ml Balance -750 ml Laboratory Data Labs 24H Laboratory Tests 2 04/11/21 13:28: Bedside Glucose (Misc Panel) 80L 04/11/21 17:51: Bedside Glucose (Misc Panel) 96 04/12/21 00:23: Bedside Glucose (Misc Panel) 87 04/12/21 05:19: Bedside Glucose (Misc Panel) 91 04/12/21 06:16: Immature Granulocyte % (Auto) , Neutrophils (%) (Auto) , Neutrophils # (Auto) 7.0, Lymphocytes # (Auto) 0.2L, Monocytes # (Auto) 0.3, Eosinophils # (Auto) 0.1, Basophils # (Auto) 0.0, Immature Granulocyte # (Auto) 0.6H, Nucleated Red Blood Cells % (auto) 0.4H, Neutrophils 74H, Band Neutrophils 11, Lymphocytes (Manual) 3L, Monocytes (Manual) 6H, Metamyelocytes 2H, Atypical Lymphocytes 4, Nucleated Red Blood Cells 2H, Poikilocytosis 1+, Anisocytosis 1+, Macrocytosis 1+, Ovalocytes 1+, Platelet Estimate DECREASED, Anion Gap 5L, Glomerular Filtration Rate > 60.0, Calcium Level 8.5#L CBC/BMP Laboratory Tests 04/12/21 06:16 FSBS Laboratory Tests Test 04/11/21 13:28 04/11/21 17:51 04/12/21 00:23 04/12/21 05:19 Range/Units Bedside Glucose (Misc Panel) 80 96 87 91 83-110 MG/DL Microbiology Microbiology 04/09/21 Blood Culture - Preliminary, Resulted No Growth after 48 hours. All Specime... 04/09/21 Blood Culture - Preliminary, Resulted No Growth after 48 hours. All Specime... Discharge Medications Scheduled Cefdinir (Cefdinir) 300 Mg Capsule, 300 MG PO BID Ergocalciferol (Vitamin D2) (Vitamin D2) 50,000 Units Cap, 50,000 UNITS PO QMONTH, (Reported) 1ST OF THE MONTH Loratadine (Claritin) 10 Mg Capsule, 10 MG PO Q12H, (Reported) Metoprolol Tartrate (Metoprolol Tartrate) 25 Mg Tablet, 12.5 MG PO BID, (Reporte d) Mirtazapine (Remeron) 30 Mg Tablet, 30 MG PO QHS, (Reported) [place]-3 Acid Ethyl Esters ([place]-3 Acid Ethyl Esters) 1 Gm Capsule, 1 GM PO DAILY, (Reported) Omeprazole (Omeprazole) 20 Mg Capsule.dr, 20 MG PO 4XWK, (Reported) SAT,SAT,SAT,SAT Pregabalin (Lyrica) 75 Mg Capsule, 75 MG PO BID, (Reported) Simvastatin (Simvastatin) 20 Mg Tab, 20 MG PO QHS, (Reported) Sulfamethoxazole/Trimethoprim (Sulfamethoxazole-Tmp Ds Tablet) 1 Each Tablet, 1 TAB PO 3XW, (Reported) TWICE DAILY ON SAT,SAT,FRI allopurinoL (allopurinoL) 300 Mg Tablet, 300 MG PO DAILY, (Reported) Scheduled PRN Acetaminophen (Acetaminophen) 325 Mg Tablet, 650 MG PO Q4H PRN for PAIN LEVEL 1- 5, (Reported) Docusate Sodium (Stool Softener) 100 Mg Capsule, 100 MG PO BID PRN for CONSTIPATION, (Reported) Hydromorphone HCl (Hydromorphone HCl) 2 Mg Tablet, 2 MG PO Q4H PRN for PAIN LEVEL 6-10, (Reported) Lidocaine HCl (Lidocaine HCl Viscous) 100 Ml Solution, 5 ML SSP ASDIRECTED PRN for MOUTH SORES, (Reported) Prochlorperazine Maleate (Prochlorperazine Maleate) 10 Mg Tablet, 10 MG PO Q6H PRN for NAUSEA OR VOMITING, (Reported) Allergies Coded Allergies: Penicillins (Verified Allergy, Intermediate, RASH, 02/13/21) JENNIFER SMITH MD Apr 12, 2021 09:32
[2021-04-12] MEDS: FILGRASTIM 480 MCG/0.8 ML SYRINGE (J1442) SC SCH (12:03)
[2022-04-08] MEDS ORDERED: LR 1,000 ML IV ONE (00:30)
== END 2021-04-12 13:17 | disposition home health service (06) | DRG 871 ==
LOC: M ED 19:09 → M ED INP 23:16 → ENRESERV 23:52 → M PCU 04-10 00:50 → M MSPAV 04-11 18:17
PROVIDERS: ADMIT Internal Medicine; ATTEND Internal Medicine
DX: A41.9 Sepsis, unspecified organism (principal); D61.810 Antineoplastic chemotherapy induced pancytopenia; G93.41 Metabolic encephalopathy; L03.213 Periorbital cellulitis; C85.11 Unspecified B-cell lymphoma, lymph nodes of head, face, and neck; I10 Essential (primary) hypertension; J84.10 Pulmonary fibrosis, unspecified; I25.10 Atherosclerotic heart disease of native coronary artery without angina pectoris; Z95.1 Presence of aortocoronary bypass graft; Z85.3 Personal history of malignant neoplasm of breast; Z92.21 Personal history of antineoplastic chemotherapy; Z79.899 Other long term (current) drug therapy; Z88.0 Allergy status to penicillin

== ENCOUNTER 2021-07-26 10:43 | Observation (INO) | payer MEDICARE, BC, OTHER ==
[~2021-07-26] VITALS: Ht 157.5 cm; Wt 56.7 kg
[~2021-07-26 10:43] MED LIST changes: +ACET1TAB55 PO; +ALLO300T2 PO; +BACTDSTA PO; +CEFD300CAP PO; +CLAR10CA3 PO; +HYDR2TAB2 PO; +LIDVISCBTL SSP; -LR 1,000 ML IV ONE; +LYRI75CA PO; +MIRT-60 PO; +MIRT1TAB15 PO; +MM S100C PO; +OMEP1CAP73 PO; +PROC10TA4 PO; +ZOFR4TAB16 PO
[2021-07-26] MEDS ORDERED: METO1TAB7 PO (11:27)
[2021-07-26] MEDS ORDERED: FURO20TA2 PO (11:27)
[2021-07-26] MEDS ORDERED: NYST50SS PO (11:27)
[2021-07-26] MEDS ORDERED: METR-265 PO (11:27)
[2021-07-26] MEDS ORDERED: ACYC1TAB PO (11:27)
[2021-07-26] MEDS ORDERED: PRED10TA2 PO (11:27)
[2021-07-26] MEDS ORDERED: CIPR500T39 PO (11:27)
[2021-07-26 12:13] LABS: BASO % 0.2 % (0.0-1.0); HEMATOCRIT 25.5 % (36.0-47.0); HEMOGLOBIN 8.2 g/dl (12.0-15.5); LYMPH # 0.2 10^3/uL (1.5-5.0); LYMPH % 2.2 % (24.0-44.0); MEAN CORPUSCULAR HEMOGLOBIN 32.5 pg (27.0-33.0); MEAN CORPUSCULAR HGB CONC 32.2 g/dl (32.0-36.5); MEAN CORPUSCULAR VOLUME 101.2 fl (80.0-96.0); MONO # 0.4 10^3/uL (0.0-0.8); MONO % 4.1 % (2.0-8.0); NEUTROPHILS # 8.5 10^3/uL (1.5-8.5); NEUTROPHILS % 91.8 % (36.0-66.0); RED BLOOD COUNT 2.52 10^6/uL (4.00-5.40); WHITE BLOOD COUNT 9.2 10^3/uL (4.0-10.0)
[2021-07-26 12:22] LABS: INR 0.95; PROTHROMBIN TIME 13.1 SECONDS (12.7-14.5)
[2021-07-26 12:29] LABS: PLATELET COUNT, AUTOMATED 26 10^3/uL (150-450)
[2021-07-26 12:44] LABS: BLOOD UREA NITROGEN 21 MG/DL (7-18); CALCIUM LEVEL 8.5 MG/DL (8.8-10.2); CARBON DIOXIDE LEVEL 33 MEQ/L (21-32); CHLORIDE LEVEL 105 MEQ/L (98-107); GLOMERULAR FILTRATION RATE > 60.0 (>39); GLUCOSE, FASTING 98 MG/DL (70-100); POTASSIUM SERUM 2.9 MEQ/L (3.5-5.1); SODIUM LEVEL 145 MEQ/L (136-145)
[2021-07-26] MEDS ORDERED: POTASSIUM CHLORIDE 10MEQ SR TABLET PO ONE (13:00)
[2021-07-26] MEDS ORDERED: KCL 10MEQ/100ML SWI (KRUN) 10 MEQ in IV 1 EA IV ONE (13:00)
[2021-07-26 13:50] LABS: CK-MB VALUE MASS 2.1 NG/ML (<3.6); MB/CK RELATIVE INDEX 4.77 (< OR =4)
[2021-07-26 16:10] LABS: MB/CK RELATIVE INDEX 5.71 (< OR =4)
[2021-07-26] MEDS ORDERED: ACETAMINOPHEN TAB 650MG DOSE (2X325MG) PO PRN (18:05)
--- OUTSIDE RECORDS SUMMARY | 2021-07-26 18:32 | CCD | Continuity of Care Document ---
Author Author Beatriz SOLORZANO MD Organization Unknown Address [address] [address] Phone [phone] Problems Description No Information Available Social History Type Date Description Comments Sex Unknown Allergies and adverse reactions Description No Information Available Medications Description No Information Available Immunizations Description No Information Available Vital Signs Description No Information Available Results Description No Information Available Procedures Date Code Description Status 06/20/2021 08853 Electrocardiogram Interpretation & Report Only Completed Medical Devices Description No Information Available Encounters Description No Information Available Assessments Date Code Description Provider 06/20/2021 D64.9 Anemia, unspecified Lenny philip MD 06/20/2021 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 Lenny Solorzano MD 06/20/2021 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, lymph nodes of head, face, and neck Lenny Solorzano MD 06/20/2021 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
--- OUTSIDE RECORDS SUMMARY | 2021-07-26 18:39 | CCD ---
Author Author [facility] Organization [facility] Address Unknown Phone Unavailable Care Team Providers Care Pad Hand Name Role Phone Miriam Montaño MD Unavailable Unavailable Miriam Montaño MD Unavailable Unavailable Miriam Montaño MD Unavailable Unavailable Miriam Montaño MD Unavailable Unavailable Miriam Mnotaño MD Unavailable Unavailable Miriam Montaño MD Unavailable Unavailable Miriam Montaño MD Unavailable Unavailable Miriam Montaño MD Unavailable Unavailable Miriam Montaño MD Unavailable Unavailable Miriam Montaño MD Unavailable Unavailable Miriam Montaño MD Unavailable Unavailable Miriam Montaño MD Unavailable Unavailable Miriam Montaño MD Unavailable Unavailable Miriam Montaño MD Unavailable Unavailable Miriam Montaño MD Unavailable Unavailable Miriam Montaño MD Unavailable Unavailable Miriam Montaño MD Unavailable Unavailable Miriam Montaño MD Unavailable Unavailable Miriam Montaño MD Unavailable Unavailable Miriam Montaño MD Unavailable Unavailable Miriam Montaño MD Unavailable Unavailable Miriam Montaño MD Unavailable Unavailable Miriam Montaño MD Unavailable Unavailable Miriam Montaño MD Unavailable Unavailable Miriam Montaño MD Unavailable Unavailable Miriam Montaño MD Unavailable Unavailable Miriam Montaño MD Unavailable Unavailable Miriam Montaño MD Unavailable Unavailable Miriam Montaño MD Unavailable Unavailable Miriam Montaño MD Unavailable Unavailable Charlie Osorio MD Unavailable Unavailable Charlie Osorio MD Unavailable Unavailable Charlie Osorio MD Unavailable Unavailable Charlie Osorio MD Unavailable Unavailable Juan Pablo, Charlie Loomis MD Unavailable Unavailable Juan Pablo, Charlie Loomis MD Unavailable Unavailable Juan Pablo, Charlie Loomis MD Unavailable Unavailable Juan Pablo, Charlie Loomis MD Unavailable Unavailable Juan Pablo, Charlie Loomis MD Unavailable Unavailable Juan Pablo, Charlie Loomis MD Unavailable Unavailable Juan Pablo, Charlie Loomis MD Unavailable Unavailable Juan Pablo, Charlie Loomis MD Unavailable Unavailable Juan Pablo, Charlie Loomis MD Unavailable Unavailable Juan Pablo, Charlie Loomis MD Unavailable Unavailable Juan Pablo, Charlie Loomis MD Unavailable Unavailable Juan Pablo, Charlie Loomis MD Unavailable Unavailable Juan Pablo, Charlie Loomis MD Unavailable Unavailable Juan Pablo, Charlie Loomis MD Unavailable Unavailable Juan Pablo, Charlie Loomis MD Unavailable Unavailable Juan Pablo, Charlie Loomis MD Unavailable Unavailable Juan Pablo, Charlie Loomis MD Unavailable Unavailable Juan Pablo, Charlie Loomis MD Unavailable Unavailable Juan Pablo, Charlie Loomis MD Unavailable Unavailable Juan Pablo, Charlie Loomis MD Unavailable Unavailable Juan Pablo, Charlie Loomis MD Unavailable Unavailable Juan Pablo, Charlie Loomis MD Unavailable Unavailable Juan Pablo, Charlie Loomis MD Unavailable Unavailable Juan Pablo, Charlie Loomis MD Unavailable Unavailable Juan Pablo, Charlie Loomis MD Unavailable Unavailable Juan Pablo, Charlie Loomis MD Unavailable Unavailable Juan Pablo, Charlie Loomis MD Unavailable Unavailable Juan Pablo, Charlie Loomis MD Unavailable Unavailable Juan Pablo, Charlie Loomis MD Unavailable Unavailable Juan Pablo, Charlie Loomis MD Unavailable Unavailable Juan Pablo, Charlie Loomis MD Unavailable Unavailable Juan Pablo, Charlie Loomis MD Unavailable Unavailable Juan Pablo, Charlie Loomis MD Unavailable Unavailable Juan Pablo, Charlie Loomis MD Unavailable Unavailable Juan Pablo, Charlie Loomis MD Unavailable Unavailable Juan Pablo, Charlie Loomis MD Unavailable Unavailable Juan Pablo, Charlie Loomis MD Unavailable Unavailable Juan Pablo, Charlie Loomis MD Unavailable Unavailable Juan Pablo, Charlie Loomis MD Unavailable Unavailable Juan Pablo, Charlie Loomis MD Unavailable Unavailable Juan Pablo, Charlie Loomis MD Unavailable Unavailable Juan Pablo, Charlie Loomis MD Unavailable Unavailable Juan Pablo, Charlie Loomis MD Unavailable Unavailable Juan Pablo, Charlie Loomis MD Unavailable Unavailable Juan Pablo, Charlie Loomis MD Unavailable Unavailable Juan Pablo, Charlie Loomis MD Unavailable Unavailable Juan Pablo, Charlie Loomis MD Unavailable Unavailable Juan Pablo, Charlie Loomis MD Unavailable Unavailable Juan Pablo, Charlie Loomis MD Unavailable Unavailable Juan Pablo, Charlie Loomis MD Unavailable Unavailable Juan Pablo, Charlie Loomis MD Unavailable Unavailable Juan Pablo, Charlie Loomis MD Unavailable Unavailable Juan Pablo, Charlie Loomis MD Unavailable Unavailable Juan Pablo, Charlie Loomis MD Unavailable Unavailable Juan Pablo, Charlie Loomis MD Unavailable Unavailable Juan Pablo, Charlie Loomis MD Unavailable Unavailable Juan Pablo, Charlie Loomis MD Unavailable Unavailable Juan Pablo, Charlie Loomis MD Unavailable Unavailable Juan Pablo, Charlie Loomis MD Unavailable Unavailable Juan Pablo, Charlie Loomis MD Unavailable Unavailable Juan Pablo, Charlie Loomis MD Unavailable Unavailable Juan Pablo, Charlie Loomis MD Unavailable Unavailable Juan Pablo, C Vladislav PULIDO Unavailable Unavailable Juan Pablo, C Vladislav PULIDO Unavailable Unavailable Juan Pablo, C Vladislav PULIDO Unavailable Unavailable Juan Pablo, Charlie Loomis MD Unavailable Unavailable Juan Pablo, Charlie Loomis MD Unavailable Unavailable Juan Pablo, Charlie Loomis MD Unavailable Unavailable Juan Pablo, Charlie Loomis MD Unavailable Unavailable Juan Pablo, Charlie Loomis MD Unavailable Unavailable Juan Pablo, Charlie Loomis MD Unavailable Unavailable Juan Pablo, Charlie Loomis MD Unavailable Unavailable Juan Pablo, Charlie Loomis MD Unavailable Unavailable Kedar, Kai Edison Unavailable Unavailable Kedar, Kai Edison Unavailable Unavailable Kedar, Kai Edison Unavailable Unavailable Kedar, Kai Edison Unavailable Unavailable Kedar, Kai Edison Unavailable Unavailable Kedar, Kai Edison Unavailable Unavailable Kedar, Kai Edison Unavailable Unavailable Kedar, Kai GómezEdison Unavailable Unavailable Kedar, Kai GómezEdison Unavailable Unavailable Kedar, Kai Hogan MD Unavailable Unavailable Kdear, Kai GómezEdison Unavailable Unavailable Kedar, Kai Edison Unavailable Unavailable Kedar, Kai Edison Unavailable Unavailable Kedar, Kai Edison Unavailable Unavailable Kedar, Kai Edison Unavailable Unavailable Kedar, Kai Edison Unavailable Unavailable Kedar, Kai Edison Unavailable Unavailable Kedar, Kai Edison Unavailable Unavailable Kedar, Kai Edison Unavailable Unavailable Kedar, Kai Edison Unavailable Unavailable Kedar, Kai Edison Unavailable Unavailable Kedar, Kai Edison Unavailable Unavailable Kedar, Kai Edison Unavailable Unavailable Kedar, Kai Edison Unavailable Unavailable Kedar, Kai Edison Unavailable Unavailable Kedar, Kai GómezEdison Unavailable Unavailable Kedar, Kai Edison Unavailable Unavailable Kedar, Kai Edison Unavailable Unavailable Kedar, Kai Edison Unavailable Unavailable Kedar, A Edison MD Unavailable Unavailable Kedar, A Edison MD Unavailable Unavailable Kedar, A Edison MD Unavailable Unavailable Kedar, A Edison MD Unavailable Unavailable Kedar, A Edison MD Unavailable Unavailable Kedar, A Edison MD Unavailable Unavailable Kedar, A Edison MD Unavailable Unavailable Kedar, A Edison MD Unavailable Unavailable Kedar, A Edison MD Unavailable Unavailable Kedar, A Edison MD Unavailable Unavailable Kedar, A Edison MD Unavailable Unavailable Kedar, A Edison MD Unavailable Unavailable Kedar, A Edison MD Unavailable Unavailable Kedar, A Edison MD Unavailable Unavailable Kedar, A Edison MD Unavailable Unavailable Kedar, A Edison MD Unavailable Unavailable Kedar, A Edison MD Unavailable Unavailable Kedar, A Edison MD Unavailable Unavailable Kedar, A Edison MD Unavailable Unavailable Kedar, A Edison MD Unavailable Unavailable Kedar, A Edison MD Unavailable Unavailable Kedar, A Edison MD Unavailable Unavailable Kedar, A Edison MD Unavailable Unavailable Kedar, A Edison MD Unavailable Unavailable Kedar, A Edison MD Unavailable Unavailable Kedar, A Edison MD Unavailable Unavailable Kedar, A Edison MD Unavailable Unavailable Kedar, A Edison MD Unavailable Unavailable Kedar, A Edison MD Unavailable Unavailable Kedar, A Edison MD Unavailable Unavailable Kedar, A Edison MD Unavailable Unavailable Kedar, A Edison MD Unavailable Unavailable Kedar, A Edison MD Unavailable Unavailable Kedar, A Edison MD Unavailable Unavailable Kedar, A Edison MD Unavailable Unavailable Kedar, A Edison MD Unavailable Unavailable Kedar, A Edison MD Unavailable Unavailable Kedar, A Edison MD Unavailable Unavailable Kedar, A Edison MD Unavailable Unavailable Kedar, A Edison MD Unavailable Unavailable Kedar, A Edison MD Unavailable Unavailable Kedar, A Edison MD Unavailable Unavailable Kedar, A Edison MD Unavailable Unavailable Kedar, A Edison MD Unavailable Unavailable Kedar, A Edison MD Unavailable Unavailable Kedar, A Edison MD Unavailable Unavailable Kedar, A Edison MD Unavailable Unavailable Kedar, A Edison MD Unavailable Unavailable Kedar, A Edison MD Unavailable Unavailable Kedar, A Edison MD Unavailable Unavailable Kedar, A Edison MD Unavailable Unavailable Kedar, A Edison MD Unavailable Unavailable Kedar, A Edison MD Unavailable Unavailable Kedar, A Edison MD Unavailable Unavailable Kedar, A Edison MD Unavailable Unavailable Kedar, A Edison MD Unavailable Unavailable Kedar, A Edison MD Unavailable Unavailable Kedar, A Edison MD Unavailable Unavailable Kedar, A Edison MD Unavailable Unavailable Kedar, A Edison MD Unavailable Unavailable Kedar, A Edison MD Unavailable Unavailable Kedar, A Edison MD Unavailable Unavailable Kedar, A Edison MD Unavailable Unavailable Kedar, A Edison MD Unavailable Unavailable Kedar, A Edison MD Unavailable Unavailable Kedar, A Edison MD Unavailable Unavailable Kedar, A Edison MD Unavailable Unavailable Kedar, A Edison MD Unavailable Unavailable Kedar, A Edison MD Unavailable Unavailable Kedar, A Edison MD Unavailable Unavailable Kedar, A Edison MD Unavailable Unavailable Kedar, A Edison MD Unavailable Unavailable Kedar, A Edison MD Unavailable Unavailable Kedar, A Edison MD Unavailable Unavailable Kedar, A Edison MD Unavailable Unavailable Kedar, A Edison MD Unavailable Unavailable Kedar, A Edison MD Unavailable Unavailable Kedar, A Edison MD Unavailable Unavailable Kedar, A Edison MD Unavailable Unavailable Kedar, A Edison MD Unavailable Unavailable Kedar, A Edison MD Unavailable Unavailable Kedar, A Edison MD Unavailable Unavailable Kedar, A Edison MD Unavailable Unavailable Kedar, A Edison MD Unavailable Unavailable Kedar, A Edison MD Unavailable Unavailable Kedar, A Edison MD Unavailable Unavailable Kedar, A Deison MD Unavailable Unavailable Kedar, A Edison MD Unavailable Unavailable Kedar, A Edison MD Unavailable Unavailable Garett MD, Avery Unavailable + Garett PULIDO, Avery Unavailable + Garett PULIDO, Avery Unavailable + Garett PULIDO, Avery Unavailable + Moirasstorrie PULIDO, Avery Unavailable + Moirasstorrie PULIDO, Avery Unavailable Garett PULIDO, Avery Unavailable + Garett PULIDO, Avery Unavailable + Garett PULIDO, Avery Unavailable + Moirasstorrie PULIDO, Avery Unavailable Garett PULIDO, Avery Unavailable Moirasstorrie PULIDO, Avery Unavailable Garett PULIDO, Avery Unavailable + Garett PULIDO, Avery Unavailable + Garett PULIDO, Avery Unavailable + Garett PULIDO, Avery Unavailable + Garett PULIDO, Avery Unavailable + Pudusseri, Jane Do Unavailable Unavailable Pudusseri, Jane Do Unavailable Unavailable Pudusseri, Jane Do Unavailable Unavailable Pudusseri, Jane Do Unavailable Unavailable Pudusseri, Jane Do Unavailable Unavailable Pudusseri, Jane Do Unavailable Unavailable Pudusseri, Jane Do Unavailable Unavailable Pudusseri, Jane Do Unavailable Unavailable Pudusseri, Jane Do Unavailable Unavailable Pudusseri, Jane Do Unavailable Unavailable Pudusseri, Jane Do Unavailable Unavailable Pudusseri, Jane Do Unavailable Unavailable Pudusseri, Jane Do Unavailable Unavailable Pudusseri, Jane Do Unavailable Unavailable Pudusseri, Jane Do Unavailable Unavailable Pudusseri, Jane Do Unavailable Unavailable Pudusseri, Jane Do Unavailable Unavailable Pudusseri, Jane Do Unavailable Unavailable Pudusseri, Jane Do Unavailable Unavailable Pudusseri, Jane Do Unavailable Unavailable Pudusseri, Jane Do Unavailable Unavailable Pudusseri, Jane Do Unavailable Unavailable Pudusseri, Jane Do Unavailable Unavailable Pudusseri, Jane Do Unavailable Unavailable Pudusseri, Jane Do Unavailable Unavailable Pudusseri, Jane Do Unavailable Unavailable Pudusseri, Jane Do Unavailable Unavailable Pudusseri, Jane Do Unavailable Unavailable Pudusseri, Jane Do Unavailable Unavailable Pudusseri, Jane Do Unavailable Unavailable Pudusseri, Jane Do Unavailable Unavailable Pudusseri, Jane Do Unavailable Unavailable Pudusseri, Jane Do Unavailable Unavailable Pudusseri, Jane Do Unavailable Unavailable Pudusseri, Jane Do Unavailable Unavailable Pudusseri, Jane Do Unavailable Unavailable Pudusseri, Jane Do Unavailable Unavailable Pudusseri, Jane Do Unavailable Unavailable Pudusseri, Jane Do Unavailable Unavailable Pudusseri, Jane Do Unavailable Unavailable Pudusseri, Jane Do Unavailable Unavailable Pudusseri, Jane Do Unavailable Unavailable Pudusseri, Jane Do Unavailable Unavailable Pudusseri, Jane Do Unavailable Unavailable Pudusseri, Jane Do Unavailable Unavailable Pudusseri, Jane Do Unavailable Unavailable Pudusseri, Jane Do Unavailable Unavailable Pudusseri, Jane Do Unavailable Unavailable Pudusseri, Jane Do Unavailable Unavailable Pudusseri, Jane Do Unavailable Unavailable Pudusseri, Jane Do Unavailable Unavailable Pudusseri, Jane Do Unavailable Unavailable Pudusseri, Jane Do Unavailable Unavailable Gail, Guru Kenney MD Unavailable Unavailable Gail, Guru Kenney MD Unavailable Unavailable Gail, Guru Kenney MD Unavailable Unavailable Gail, Guru Kenney MD Unavailable Unavailable Gail, Guru Kenney MD Unavailable Unavailable Gail, Guru Kenney MD Unavailable Unavailable Gail, Guru Kenney MD Unavailable Unavailable Gail, Guru Kenney MD Unavailable Unavailable Gail, Guru Kenney MD Unavailable Unavailable GailGuru MD Unavailable Unavailable GailGuru MD Unavailable Unavailable Gail, Guru Kenney MD Unavailable Unavailable Gail, Guru Kenney MD Unavailable Unavailable Gail, Guru Kenney MD Unavailable Unavailable Gail, Guru Kenney MD Unavailable Unavailable GailGuru MD Unavailable Unavailable Gail, Guru Kenney MD Unavailable Unavailable Gail, Guru Kenney MD Unavailable Unavailable Gail, Guru Kenney MD Unavailable Unavailable Gail, Guru Kenney MD Unavailable Unavailable Gail, Guru Kenney MD Unavailable Unavailable Gail, Guru Kenney MD Unavailable Unavailable Gail, Guru Kenney MD Unavailable Unavailable GailGuru MD Unavailable Unavailable GailGuru MD Unavailable Unavailable GailGuru MD Unavailable Unavailable GailGuru MD Unavailable Unavailable GailGuru MD Unavailable Unavailable GailGuru MD Unavailable Unavailable GailGuru MD Unavailable Unavailable GailGuru MD Unavailable Unavailable GailGuru MD Unavailable Unavailable GailGuru MD Unavailable Unavailable GailGuru MD Unavailable Unavailable GailGuru MD Unavailable Unavailable Gail, Guru Kenney MD Unavailable Unavailable Gail, Guru Kenney MD Unavailable Unavailable Gail, Guru Kenney MD Unavailable Unavailable Gail, Guru Kenney MD Unavailable Unavailable Gail, Guru Kenney MD Unavailable Unavailable GailGuru MD Unavailable Unavailable Gail, Guru Kenney MD Unavailable Unavailable Peg NUNEZ MD Unavailable Unavailable Pge NUNEZ MD Unavailable Unavailable Peg NUNEZ MD Unavailable Unavailable Peg NUNEZ MD Unavailable Unavailable Peg NUNEZ MD Unavailable Unavailable Peg NUNEZ MD Unavailable Unavailable Peg NUNEZ MD Unavailable Unavailable Peg NUNEZ MD Unavailable Unavailable Peg NUNEZ MD Unavailable Unavailable Peg NUNEZ MD Unavailable Unavailable Peg NUNEZ MD Unavailable Unavailable Peg NUNEZ MD Unavailable Unavailable Peg NUNEZ MD Unavailable Unavailable Peg NUNEZ MD Unavailable Unavailable Peg NUNEZ MD Unavailable Unavailable Peg NUNEZ MD Unavailable Unavailable Peg NUNEZ MD Unavailable Unavailable Peg NUNEZ MD Unavailable Unavailable Peg NUNEZ MD Unavailable Unavailable Peg NUNEZ MD Unavailable Unavailable Peg NUNEZ MD Unavailable Unavailable Peg NUNEZ MD Unavailable Unavailable Peg NUNEZ MD Unavailable Unavailable Peg NUNEZ MD Unavailable Unavailable Peg NUNEZ MD Unavailable Unavailable LAUREL, RAZO MOHAMMAD Unavailable Unavailable LAUREL, RAZO MOHAMMAD Unavailable Unavailable LAUREL, RAZO MOHAMMAD Unavailable Unavailable LAUREL, RAZO MOHAMMAD Unavailable Unavailable LAUREL, RAZO MOHAMMAD Unavailable Unavailable LAUREL, RAZO MOHAMMAD Unavailable Unavailable LAUREL, RAZO MOHAMMAD Unavailable Unavailable LAUREL, RAZO MOHAMMAD Unavailable Unavailable LAUREL, RAZO MOHAMMAD Unavailable Unavailable LAUREL, RAZO MOHAMMAD Unavailable Unavailable LAUREL, RAZO MOHAMMAD Unavailable Unavailable LAUREL, RAZO MOHAMMAD Unavailable Unavailable LAUREL, RAZO MOHAMMAD Unavailable Unavailable LAUREL, RAZO MOHAMMAD Unavailable Unavailable LAUREL, RAZO MOHAMMAD Unavailable Unavailable LAUREL, RAZO MOHAMMAD Unavailable Unavailable LAUREL, RAZO MOHAMMAD Unavailable Unavailable Fiona VALENTIN MD Unavailable Unavailable Fiona VALENTIN MD Unavailable Unavailable Fiona VALENTIN MD Unavailable Unavailable Fiona VALENTIN MD Unavailable Unavailable Fiona VALENTIN MD Unavailable Unavailable Fiona VALENTIN MD Unavailable Unavailable Fiona VALENTIN MD Unavailable Unavailable Fiona VALENTIN MD Unavailable Unavailable Fiona VALENTIN MD Unavailable Unavailable Fiona VALENTIN MD Unavailable Unavailable Fiona VALENTIN MD Unavailable Unavailable Fiona VALENTIN MD Unavailable Unavailable Fiona VALENTIN MD Unavailable Unavailable Fiona VALENTIN MD Unavailable Unavailable Fiona VALENTIN MD Unavailable Unavailable Fiona VALENTIN MD Unavailable Unavailable VALENTIN, S JACQUELINE MD Unavailable Unavailable VALENTIN, S JACQUELINE MD Unavailable Unavailable VALENTIN, S JACQUELINE MD Unavailable Unavailable VALENTIN, S JACQUELINE MD Unavailable Unavailable VALENTIN, S JACQUELINE MD Unavailable Unavailable VALENTIN, S JACQUELINE MD Unavailable Unavailable VALENTIN, S JACQUELINE MD Unavailable Unavailable VALENTIN, S JACQUELINE MD Unavailable Unavailable VALENTIN, S JACQUELINE MD Unavailable Unavailable VALENTIN, S JACQUELINE MD Unavailable Unavailable VALENTIN, S JACQUELINE MD Unavailable Unavailable VALENTIN, S JACQUELINE MD Unavailable Unavailable VALENTIN, S JACQUELINE MD Unavailable Unavailable VALENTIN, S JACQUELINE MD Unavailable Unavailable VALENTIN, S JACQUELINE MD Unavailable Unavailable VALENTIN, S JACQUELINE MD Unavailable Unavailable VALENTIN, S JACQUELINE MD Unavailable Unavailable VALENTIN, S JACQUELINE MD Unavailable Unavailable VALENTIN, S JACQUELINE MD Unavailable Unavailable VALENTIN, S JACQUELINE MD Unavailable Unavailable VALENTIN, S JACQUELINE MD Unavailable Unavailable VALENTIN, S JACQUELINE MD Unavailable Unavailable VALENTIN, S JACQUELINE MD Unavailable Unavailable VALENTIN, S JACQUELINE MD Unavailable Unavailable VALENTIN, S JACQUELINE MD Unavailable Unavailable VALENTIN, S JACQUELINE MD Unavailable Unavailable VALENTIN, S JACQUELINE MD Unavailable Unavailable VALENTIN, S JACQUELINE MD Unavailable Unavailable VALENTIN, S JACQUELINE MD Unavailable Unavailable VALENTIN, S JACQUELINE MD Unavailable Unavailable VALENTIN, S JACQUELINE MD Unavailable Unavailable VALENTIN, S JACQUELINE MD Unavailable Unavailable VALENTIN, S JACQUELINE MD Unavailable Unavailable VALENTIN, S JACQUELINE MD Unavailable Unavailable VALENTIN, S JACQUELINE MD Unavailable Unavailable VALENTIN, S JACQUELINE MD Unavailable Unavailable VALENTIN, S JACQUELINE MD Unavailable Unavailable MAMI, L MARY ELLEN MD Unavailable Unavailable MAMI, L MARY ELLEN MD Unavailable Unavailable MMAI, L MARY ELLEN MD Unavailable Unavailable MAMI, L MARY ELLEN MD Unavailable Unavailable MAMI, L MARY ELLEN MD Unavailable Unavailable MAMI, L MARY ELLEN MD Unavailable Unavailable MAMI, L MARY ELLEN MD Unavailable Unavailable MAMI, L MARY ELLEN MD Unavailable Unavailable MAMI, L MARY ELLEN MD Unavailable Unavailable MAMI, L MARY ELLEN MD Unavailable Unavailable MAMI, L MARY ELLEN MD Unavailable Unavailable MAMI, L MARY ELLEN MD Unavailable Unavailable MAMI, L MARY ELLEN MD Unavailable Unavailable MAMI, L MARY ELLEN MD Unavailable Unavailable MAMI, L MARY ELLEN MD Unavailable Unavailable MAMI, L MARY ELLEN MD Unavailable Unavailable MAMI, L MARY ELLEN MD Unavailable Unavailable MAMI, L MARY ELLEN MD Unavailable Unavailable MAMI, L MARY ELLEN MD Unavailable Unavailable MAMI, L MARY ELLEN MD Unavailable Unavailable COLOSIMO, E KANA Unavailable [facility]available [facility] Unavailable Unavailable SHIRLENE DALEY MD Unavailable Unavailable SHIRLENE DALEY MD Unavailable Unavailable SHIRLENE DALEY MD Unavailable Unavailable SHIRLENE DALEY MD Unavailable Unavailable MIHIR BARAJAS Unavailable Unavailable Shaileshebiantricia, Chiquis Gupta MD Unavailable Unavailab le Panebianco, Chiquis Gupta MD Unavailable Unavailab le Panebianco, Chiquis Gupta MD Unavailable Unavailab le Panebianco, Chiquis Gupta MD Unavailable Unavailab le Panebianco, Chiquis Gupta MD Unavailable Unavailab le Panebianco, Chiquis Gupta MD Unavailable Unavailab le Panebianco, Chiquis Gupta MD Unavailable Unavailab le Panebianco, Chiquis Gupta MD Unavailable Unavailab le Panebianco, Chiquis Gupta MD Unavailable Unavailab le Panebianco, Chiquis Gupta MD Unavailable Unavailab le Panebianco, Chiquis Gupta MD Unavailable Unavailab le Panebianco, Chiquis Gupta MD Unavailable Unavailab le Panebianco, Chiquis Gupta MD Unavailable Unavailab le Panebianco, Chiquis Gupta MD Unavailable Unavailab le Panebianco, Chiquis Gupta MD Unavailable Unavailab le Panebianco, Chiquis Gupta MD Unavailable Unavailab le Panebianco, Chiquis Gupta MD Unavailable Unavailab le Panebianco, Chiquis Gupta MD Unavailable Unavailab le Panebianco, Chiquis Gupta MD Unavailable Unavailab le Panebianco, Chiquis Gupta MD Unavailable Unavailab le Panebianco, Chiquis Gupta MD Unavailable Unavailab le Panebianco, Chiquis Gupta MD Unavailable Unavailab le Panebianco, Chiquis Gupta MD Unavailable Unavailab le Panebianco, Chiquis Gupta MD Unavailable Unavailab le Panebianco, Chiquis Gupta MD Unavailable Unavailab le Panebianco, Chiquis Gupta MD Unavailable Unavailab le Panebianco, Chiquis Gupta MD Unavailable Unavailab le SYSTEM IN, NOT PROVIDER Unavailable Unavailable TURRIN, DANILO Unavailable Unavailable TURRIN, DANILO Unavailable Unavailable TURRIN, DANILO Unavailable Unavailable TURRIN, DANILO Unavailable Unavailable ABDI, TRUNG 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 HELPER Unavailable Unavailable ABDI, TRUNG 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 HELPER Unavailable Unavailable ABDI, TRUNG 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 HELPER Unavailable Unavailable ABDI, TRUNG 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 HELPER Unavailable Unavailable ABDI, TRUNG 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 HELPER Unavailable Unavailable ABDI, TRUNG 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 HELPER Unavailable Unavailable ABDI, TRUNG 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 HELPER Unavailable Unavailable ABDI, TRUNG 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 HELPER Unavailable Unavailable ABDI, TRUNG 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 HELPER Unavailable Unavailable ABDI, TRUNG 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 HELPER Unavailable Unavailable ABDI, TRUNG 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 HELPER Unavailable Unavailable ABDI, TRUNG 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 HELPER Unavailable Unavailable ABDI, TRUNG 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 HELPER Unavailable Unavailable ABDI, TRUNG 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 HELPER Unavailable Unavailable ABDI, TRUNG 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 HELPER Unavailable Unavailable ABDI, TRUNG 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 HELPER Unavailable Unavailable ABDI, TRUNG 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 HELPER Unavailable Unavailable ABDI, TRUNG 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 HELPER Unavailable Unavailable ABDI, TRUNG 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 HELPER Unavailable Unavailable ABDI, TRUNG 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 HELPER Unavailable Unavailable ABDI, TRUNG 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 HELPER Unavailable Unavailable ABDI, TRUNG 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 HELPER Unavailable Unavailable ABDI, 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 HELPER Unavailable Unavailable SAGCAN, G ANTONIO MD Unavailable Unavailable SAGCAN, G ANTONIO MD Unavailable Unavailable SAGCAN, G ANTONIO MD Unavailable Unavailable SAGCAN, G ANTONIO MD Unavailable Unavailable SAGCAN, G ANTONIO MD Unavailable Unavailable SAGCAN, G ANTONIO MD Unavailable Unavailable SAGCAN, G ANTONIO MD Unavailable Unavailable SAGCAN, G ANTONIO MD Unavailable Unavailable SAGCAN, G ANTONIO MD Unavailable Unavailable SAGCAN, G ANTONIO MD Unavailable Unavailable SAGCAN, G ANTONIO MD Unavailable Unavailable SAGCAN, G ANTONIO MD Unavailable Unavailable SAGCAN, G ANTONIO MD Unavailable Unavailable SAGCAN, G ANTONIO MD Unavailable Unavailable SAGCAN, G ANTONIO MD Unavailable Unavailable SAGCAN, G ANTONIO MD Unavailable Unavailable SAGCAN, G ANTONIO MD Unavailable Unavailable SAGCAN, G ANTONIO MD Unavailable Unavailable SAGCAN, G ANTONIO MD Unavailable Unavailable ADJAPONG, VERNON Unavailable Unavailable Charlie Osorio MD Unavailable Unavailable Charlie Osorio MD Unavailable Unavailable Charlie Osorio MD Unavailable Unavailable Charlie Osorio MD Unavailable Unavailable Charlie Osorio MD Unavailable Unavailable Charlie Osorio MD Unavailable Unavailable Charlie Osorio MD Unavailable Unavailable Juan Pablo, Charlie Loomis MD Unavailable Unavailable Juan Pablo, Charlie Loomis MD Unavailable Unavailable Juan Pablo, Charlie Loomis MD Unavailable Unavailable Juan Pablo, Charlie Loomis MD Unavailable Unavailable Juan Pablo, Charlie Loomis MD Unavailable Unavailable Juan Pablo, Charlie Loomis MD Unavailable Unavailable Juan Pablo, Charlie Loomis MD Unavailable Unavailable Juan Pablo, Charlie Loomis MD Unavailable Unavailable Juan Pablo, Charlie Loomis MD Unavailable Unavailable Juan Pablo, Charlie Loomis MD Unavailable Unavailable Juan Pablo, Charlie Loomis MD Unavailable Unavailable Juan Pablo, Charlie Loomis MD Unavailable Unavailable Juan Pablo, Charlie Loomis MD Unavailable Unavailable Juan Pablo, Charlie Loomis MD Unavailable Unavailable Juan Pablo, Charlie Loomis MD Unavailable Unavailable Juan Pablo, Charlie Loomis MD Unavailable Unavailable Juan Pablo, Charlie Loomis MD Unavailable Unavailable Juan Pablo, Charlie Loomis MD Unavailable Unavailable Juan Pablo, Charlie Loomis MD Unavailable Unavailable Juan Pablo, Charlie Loomis MD Unavailable Unavailable Juan Pablo, Charlie Loomis MD Unavailable Unavailable Juan Pablo, Charlie Loomis MD Unavailable Unavailable Juan Pablo, Charlie Loomis MD Unavailable Unavailable Juan Pablo, Charlie Loomis MD Unavailable Unavailable Juan Pablo, Charlie Lomois MD Unavailable Unavailable Juan Pablo, Charlie Loomis MD Unavailable Unavailable Juan Pablo, Charlie Loomis MD Unavailable Unavailable Juan Pablo, Charlie Loomis MD Unavailable Unavailable Juan Pablo, Charlie Loomis MD Unavailable Unavailable Juan Pablo, Charlie Loomis MD Unavailable Unavailable Juan Pablo, Charlie Loomis MD Unavailable Unavailable Juan Pablo, Charlie Loomis MD Unavailable Unavailable Juan Pablo, Charlie Loomis MD Unavailable Unavailable Juan Pablo, Charlie Loomis MD Unavailable Unavailable Juan Pablo, Charlie Loomis MD Unavailable Unavailable Juan Pablo, Charlie Loomis MD Unavailable Unavailable Juan Pablo, Charlie Loomis MD Unavailable Unavailable Juan Pablo, Charlie Loomis MD Unavailable Unavailable Juan Pablo, Charlie Loomis MD Unavailable Unavailable Juan Pablo, Charlie Loomis MD Unavailable Unavailable Juan Pablo, Charlie Loomis MD Unavailable Unavailable Juan Pablo, Charlie Loomis MD Unavailable Unavailable Juan Pablo, Charlie Loomis MD Unavailable Unavailable Juan Pablo, Charlie Loomis MD Unavailable Unavailable Juan Pablo, Charlie Loomis MD Unavailable Unavailable Juan Pablo, Charlie Loomis MD Unavailable Unavailable Juan Pablo, Charlie Loomis MD Unavailable Unavailable Juan Pablo, Charlie Loomis MD Unavailable Unavailable Juan Pablo, Charlie Loomis MD Unavailable Unavailable Juan Pablo, Charlie Loomis MD Unavailable Unavailable Juan Pablo, Charlie Loomis MD Unavailable Unavailable Juan Pablo, Charlie Loomis MD Unavailable Unavailable Juan Pablo, Charlie Loomis MD Unavailable Unavailable Juan Pablo, Charlie Loomis MD Unavailable Unavailable Juan Pablo, Charlie Loomis MD Unavailable Unavailable Juan Pablo, Charlie Loomis MD Unavailable Unavailable Juan Pablo, Charlie Loomis MD Unavailable Unavailable Juan Pablo, Charlie Loomis MD Unavailable Unavailable Juan Pablo, Charlie Loomis MD Unavailable Unavailable Juan Pablo, Charlie Loomis MD Unavailable Unavailable Juan Pablo, Charlie Loomis MD Unavailable Unavailable Juan Pablo, Charlie Loomis MD Unavailable Unavailable Juan Pablo, C Vladislav PULIDO Unavailable Unavailable Juan Pablo, Charlie Loomis MD Unavailable Unavailable Juan Pablo, Charlie Loomis MD Unavailable Unavailable Juan Pablo, Charlie Loomis MD Unavailable Unavailable Juan Pablo, Charlie Loomis MD Unavailable Unavailable Juan Pablo, Charlie Loomis MD Unavailable Unavailable Juan Pablo, Charlie Loomis MD Unavailable Unavailable Juan Pablo, Charlie Loomis MD Unavailable Unavailable David, Charlie Kenney PH.D., M.D. Unavailable Unavailable David, Charlie Kenney PH.D., M.D. Unavailable Unavailable David, Charlie Kenney PH.D., M.D. Unavailable Unavailable David, Charlie Kenney PH.D., M.D. Unavailable Unavailable David, Charlie Kenney PH.D., M.D. Unavailable Unavailable David, Charlie Kenney PH.D., M.D. Unavailable Unavailable David, Charlie Kenney PH.D., M.D. Unavailable Unavailable David, Charlie Kenney PH.D., M.D. Unavailable Unavailable David, Charlie Kenney PH.D., M.D. Unavailable Unavailable David, Charlie Kenney PH.D., M.D. Unavailable Unavailable David, Charlie Kenney PH.D., M.D. Unavailable Unavailable David, Charlie Kenney PH.D., M.D. Unavailable Unavailable David, Charlie Kenney PH.D., M.D. Unavailable Unavailable David, Charlie Kenney PH.D., M.D. Unavailable Unavailable David, Charlie Kenney PH.D., M.D. Unavailable Unavailable David, Charlie Kenney PH.D., M.D. Unavailable Unavailable David, Charlie Kenney PH.D., M.D. Unavailable Unavailable David, Charlie Kenney PH.D., M.D. Unavailable Unavailable David, Charlie Kenney PH.D., M.D. Unavailable Unavailable David, Charlie Kenney PH.D., M.D. Unavailable Unavailable David, C Edvin PH.D., M.D. Unavailable Unavailable David, C Edvin PH.D., M.D. Unavailable Unavailable David, C Edvin PH.D., M.D. Unavailable Unavailable David, C Edvin PH.D., M.D. Unavailable Unavailable David, C Edvin PH.D., M.D. Unavailable Unavailable David, C Edvin PH.D., M.D. Unavailable Unavailable David, C Edvin PH.D., M.D. Unavailable Unavailable David, C Edvin PH.D., M.D. Unavailable Unavailable David, C Edvin PH.D., M.D. Unavailable Unavailable David, C Edvin PH.D., M.D. Unavailable Unavailable David, C Edvin PH.D., M.D. Unavailable Unavailable David, C Edvin PH.D., M.D. Unavailable Unavailable David, C Edvin PH.D., M.D. Unavailable Unavailable David, C Edvin PH.D., M.D. Unavailable Unavailable David, C Edvin PH.D., M.D. Unavailable Unavailable David, C Edvin PH.D., M.D. Unavailable Unavailable David, C Edvin PH.D., M.D. Unavailable Unavailable David, C Edvin PH.D., M.D. Unavailable Unavailable David, C Edvin PH.D., M.D. Unavailable Unavailable David, C Edvin PH.D., M.D. Unavailable Unavailable David, C Edvin PH.D., M.D. Unavailable Unavailable David, C Edvin PH.D., M.D. Unavailable Unavailable David, C Edvin PH.D., M.D. Unavailable Unavailable David, C Edvin PH.D., M.D. Unavailable Unavailable David, C Edvin PH.D., M.D. Unavailable Unavailable David, C Edvin PH.D., M.D. Unavailable Unavailable David, C Edvin PH.D., M.D. Unavailable Unavailable David, C Edvin PH.D., M.D. Unavailable Unavailable David, C Edvin PH.D., M.D. Unavailable Unavailable David, C Edvin PH.D., M.D. Unavailable Unavailable David, C Edvin PH.D., M.D. Unavailable Unavailable David, C Edvin PH.D., M.D. Unavailable Unavailable David, C Edvin PH.D., M.D. Unavailable Unavailable David, C Edvin PH.D., M.D. Unavailable Unavailable David, Charlie Kenney PH.D., M.D. Unavailable Unavailable David, Charlie Kenney PH.D., M.D. Unavailable Unavailable David, C Edvin PH.D., M.D. Unavailable Unavailable David, C Edvin PH.D., M.D. Unavailable Unavailable David, Charlie Kenney PH.D., M.D. Unavailable Unavailable David, Charlie Kenney PH.D., M.D. Unavailable Unavailable David, C Edvin PH.D., M.D. Unavailable Unavailable David, C Edvin PH.D., M.D. Unavailable Unavailable David, Charlie Kenney PH.D., M.D. Unavailable Unavailable David, C Edvin PH.D., M.D. Unavailable Unavailable David, C Edvin PH.D., M.D. Unavailable Unavailable David, Charlie Kenney PH.D., M.D. Unavailable Unavailable David, Charlie Kenney PH.D., M.D. Unavailable Unavailable David, Charlie Kenney PH.D., M.D. Unavailable Unavailable David, C Edvin PH.D., M.D. Unavailable Unavailable David, Charlie Kenney PH.D., M.D. Unavailable Unavailable David, Charlie Kenney PH.D., M.D. Unavailable Unavailable David, C Edvin PH.D., M.D. Unavailable Unavailable David, C Edvin PH.D., M.D. Unavailable Unavailable David, C Edvin PH.D., M.D. Unavailable Unavailable David, C Edvin PH.D., M.D. Unavailable Unavailable David, C Edvin PH.D., M.D. Unavailable Unavailable David, Charlie Kenney PH.D., M.D. Unavailable Unavailable David, Charlie Kenney PH.D., M.D. Unavailable Unavailable David, C Edvin PH.D., M.D. Unavailable Unavailable David, Charlie Kenney PH.D., M.D. Unavailable Unavailable David, Charlie Kenney PH.D., M.D. Unavailable Unavailable David, Charlie Kenney PH.D., M.D. Unavailable Unavailable Panebianco, Chiquis Gupta MD Unavailable Unavailab le Panebianco, Chiquis Gupta MD Unavailable Unavailab le Panebianco, Chiquis Gupta MD Unavailable Unavailab le Panebianco, Chiquis Gupta MD Unavailable Unavailab le Panebianco, Chiquis Gupta MD Unavailable Unavailab le Panebianco, Chiquis Gupta MD Unavailable Unavailab le Panebianco, Chiquis Gupta MD Unavailable Unavailab le Panebianco, Chiquis Gupta MD Unavailable Unavailab le Panebianco, Chiquis Gupta MD Unavailable Unavailab le Panebianco, Chiquis Gupta MD Unavailable Unavailab le Panebianco, Chiquis Gupta MD Unavailable Unavailab le Panebianco, Chiquis Gupta MD Unavailable Unavailab le Panebianco, Chiquis Gupta MD Unavailable Unavailab le Panebianco, Chiquis Gupta MD Unavailable Unavailab le Panebianco, Chiquis Gupta MD Unavailable Unavailab le Panebianco, Chiquis Gupta MD Unavailable Unavailab le Panebianco, Chiquis Gupta MD Unavailable Unavailab le Panebianco, Chiquis Gupta MD Unavailable Unavailab le Panebianco, Chiquis Gupta MD Unavailable Unavailab le Panebianco, Chiquis Gupta MD Unavailable Unavailab le Panebianco, Chiquis Gupta MD Unavailable Unavailab le Panebianco, Chiquis Gupta MD Unavailable Unavailab le Panebianco, Chiquis Gupta MD Unavailable Unavailab le Panebianco, Chiquis Gupta MD Unavailable Unavailab le Panebianco, Chiquis Gupta MD Unavailable Unavailab le Panebianco, Chiquis Gupta MD Unavailable Unavailab le Panebianco, Chiquis Gupta MD Unavailable Unavailab le Peg SESAY MD Unavailable Unavailable Peg SESAY MD Unavailable Unavailable Peg SESAY MD Unavailable Unavailable Peg SESAY MD Unavailable Unavailable Peg SESAY MD Unavailable Unavailable Peg SESAY MD Unavailable Unavailable Peg SESAY MD Unavailable Unavailable Peg SESAY MD Unavailable Unavailable Peg SESAY MD Unavailable Unavailable Peg SESAY MD Unavailable Unavailable Peg SESAY MD Unavailable Unavailable Peg SESAY MD Unavailable Unavailable Peg SESAY MD Unavailable Unavailable Peg SESAY MD Unavailable Unavailable Peg SESAY MD Unavailable Unavailable Peg SESAY MD Unavailable Unavailable Peg SESAY MD Unavailable Unavailable Peg SESAY MD Unavailable Unavailable Peg SESAY MD Unavailable Unavailable Peg SESAY MD Unavailable Unavailable Peg SESAY MD Unavailable Unavailable Peg SESAY MD Unavailable Unavailable Peg SESAY MD Unavailable Unavailable Peg SESAY MD Unavailable Unavailable Peg SESAY MD Unavailable Unavailable Pge SESAY MD Unavailable Unavailable Peg SESAY MD Unavailable Unavailable Peg SESAY MD Unavailable Unavailable Peg SESAY MD Unavailable Unavailable Peg SESAY MD Unavailable Unavailable Peg SESAY MD Unavailable Unavailable Peg SESAY MD Unavailable Unavailable Peg SESAY MD Unavailable Unavailable Charlie MANN MD Unavailable Unavailable Charlie MANN MD Unavailable Unavailable Charlie MANN MD Unavailable Unavailable Charlie MANN MD Unavailable Unavailable Charlie MANN MD Unavailable Unavailable Charlie MANN MD Unavailable Unavailable Charlie MANN MD Unavailable Unavailable Charlie MANN MD Unavailable Unavailable Charlie MANN MD Unavailable Unavailable Charlie MANN MD Unavailable Unavailable Charlie MANN MD Unavailable Unavailable Charlie MANN MD Unavailable Unavailable Charlie MANN MD Unavailable Unavailable Charlie MANN MD Unavailable Unavailable Charlie MANN MD Unavailable Unavailable Charlie MANN MD Unavailable Unavailable Charlie MNAN MD Unavailable Unavailable Charlie MANN MD Unavailable Unavailable Charlie MANN MD Unavailable Unavailable Charlie MANN MD Unavailable Unavailable COLOSIMO, KANA Unavailable Unavailable MARIANN SESAY Unavailable Unavailable Fiona CONWAY SHAYLABROWN Unavailable Unavailable Peg MATHUR MD Unavailable Unavailable Peg MATHUR MD Unavailable Unavailable Peg MATHUR MD Unavailable Unavailable Peg MATHUR MD Unavailable Unavailable Peg MATHUR JACQUELINE MD Unavailable Unavailable Peg MATHUR JACQUELINE MD Unavailable Unavailable Peg MATHUR JACQUELINE MD Unavailable Unavailable Peg MATHUR JACQUELINE MD Unavailable Unavailable Peg MATHUR JACQUELINE MD Unavailable Unavailable Peg MATHUR JACQUELINE MD Unavailable Unavailable Peg MATHUR JACQUELINE MD Unavailable Unavailable Peg MATHUR JACQUELINE MD Unavailable Unavailable GERARDOPeg JACQUELINE MD Unavailable Unavailable Peg MATHUR JACQUELINE MD Unavailable Unavailable GERARDOPeg JACQUELINE Unavailable Unavailable GERARDO, J JACQUELINE MD Unavailable Unavailable Peg MATHUR JACQUELINE MD Unavailable Unavailable GERARDOPeg JACQUELINE MD Unavailable Unavailable GERARDO, J JACQUELINE MD Unavailable Unavailable GERARDO, J JACQUELINE MD Unavailable Unavailable GERARDO, J JACQUELINE MD Unavailable Unavailable GERARDO, J JACQUELINE MD Unavailable Unavailable GERARDO, J JACQUELINE MD Unavailable Unavailable GERARDO, J JACQUELINE MD Unavailable Unavailable GERARDO, J JACQUELINE MD Unavailable Unavailable GERARDO, J JACQUELINE MD Unavailable Unavailable GERARDO, J JACQUELINE MD Unavailable Unavailable GERARDO, J JACQUELINE MD Unavailable Unavailable GERARDO, J JACQUELINE MD Unavailable Unavailable GERARDO, J JACQUELINE MD Unavailable Unavailable GERARDO, J JACQUELINE MD Unavailable Unavailable GERARDO, J JACQUELINE MD Unavailable Unavailable GERARDO, J JACQUELINE MD Unavailable Unavailable GERARDO, J JACQUELINE MD Unavailable Unavailable GERARDO, J JACQUELINE MD Unavailable Unavailable GERARDO, J JACQUELINE MD Unavailable Unavailable GERARDO, J JACQUELINE MD Unavailable Unavailable GERARDO, J JACQUELINE MD Unavailable Unavailable GERARDO, J JACQUELINE MD Unavailable Unavailable GERARDO, J JACQUELINE MD Unavailable Unavailable GERARDO, J JACQUELINE MD Unavailable Unavailable GERARDO, J JACQUELINE MD Unavailable Unavailable GERARDO, J JACQUELINE MD Unavailable Unavailable GERARDO, J JACQUELINE MD Unavailable Unavailable GERARDO, J JACQUELINE MD Unavailable Unavailable GERARDO, J JACQUELINE MD Unavailable Unavailable GERARDO, J JACQUELINE MD Unavailable Unavailable GERARDO, J JACQUELINE MD Unavailable Unavailable GERARDO, J JACQUELINE MD Unavailable Unavailable GERARDO, J JACQUELINE MD Unavailable Unavailable GERARDO, J JACQUELINE MD Unavailable Unavailable GERARDO, J JACQUELINE MD Unavailable Unavailable GERARDO, J JACQUELINE MD Unavailable Unavailable GERARDO, J JACQUELINE MD Unavailable Unavailable GERARDO, J JACQUELINE MD Unavailable Unavailable GERARDO, J JACQUELINE MD Unavailable Unavailable GERARDO, J JACQUELINE MD Unavailable Unavailable GERARDO, J JACQUELINE MD Unavailable Unavailable GERARDO, J JACQUELINE MD Unavailable Unavailable GERARDO, J JACQUELINE MD Unavailable Unavailable GERARDO, J JACQUELINE MD Unavailable Unavailable GERARDO, J JACQUELINE MD Unavailable Unavailable GERARDO, J JACQUELINE MD Unavailable Unavailable GERARDO, J JACQUELINE MD Unavailable Unavailable GERARDO, J JACQUELINE MD Unavailable Unavailable GERARDO, J JACQUELINE MD Unavailable Unavailable GERARDO, J JACQUELINE MD Unavailable Unavailable GERARDO, J JACQUELINE MD Unavailable Unavailable GERARDO, J JACQUELINE MD Unavailable Unavailable GERARDO, J JACQUELINE MD Unavailable Unavailable GERARDO, J JACQUELINE MD Unavailable Unavailable GERARDO, J JACQUELINE MD Unavailable Unavailable GERARDO, J JACQUELINE MD Unavailable Unavailable GERARDO, J JACQUELINE MD Unavailable Unavailable GERARDO, J JACQUELINE Unavailable Unavailable GERARDO, J JACQUELINE Unavailable Unavailable GERARDO, J JACQUELINE Unavailable Unavailable GERARDO, J JACQUELINE Unavailable Unavailable GERARDO, J JACQUELINE Unavailable Unavailable GERARDO, J JACQUELINE MD Unavailable Unavailable GERARDO, J JACQUELINE Unavailable Unavailable GERARDO, J JACQUELINE MD Unavailable Unavailable KANDICE FLORES MD Unavailable Unavailable CHESOKANDICE Aparicio MD Unavailable Unavailable KANDICE FLORES MD Unavailable Unavailable CHESOUKANDICE MD Unavailable Unavailable SOUSOUKANDICE MD Unavailable Unavailable SOUSOUKANDICE MD Unavailable Unavailable SOUSOUKANDICE MD Unavailable Unavailable NORMAUKANDICE MD Unavailable Unavailable NORMAUKANDICE MD Unavailable Unavailable KANDICE FLORES MD Unavailable Unavailable KANDICE FLORES MD Unavailable Unavailable KANDICE FLORES MD Unavailable Unavailable KANDICE FLORES MD Unavailable Unavailable KANDICE FLORES MD Unavailable Unavailable KANDICE FLORES MD Unavailable Unavailable KANDICE FLORES MD Unavailable Unavailable KANDICE FLORES MD Unavailable Unavailable KANDICE FLORES MD Unavailable Unavailable KANDICE FLORES MD Unavailable Unavailable CHESOKANDICE Aparicio MD Unavailable Unavailable KANDICE FLORES MD Unavailable Unavailable KANDICE FLORES MD Unavailable Unavailable KANDICE FLORES MD Unavailable Unavailable KANDICE FLORES MD Unavailable Unavailable KANDICE FLORES MD Unavailable Unavailable KANDICE FLORES MD Unavailable Unavailable KANDICE FLORES MD Unavailable Unavailable KANDICE FLORES MD Unavailable Unavailable KANDICE FLORES MD Unavailable Unavailable KANDICE FLORES MD Unavailable Unavailable KANDICE FLORES MD Unavailable Unavailable CHESOKANDICE Aparicio MD Unavailable Unavailable CHESOUKANDICE MD Unavailable Unavailable CHESOUKANDICE MD Unavailable Unavailable CHESOUKANDICE MD Unavailable Unavailable CHESOUKANDICE MD Unavailable Unavailable CHESOUKANDICE MD Unavailable Unavailable CHESOUKANDICE MD Unavailable Unavailable CHESOUKANDICE MD Unavailable Unavailable CHESOUKANDICE MD Unavailable Unavailable CHESOUKANDICE MD Unavailable Unavailable SOUSOUKANDICE MD Unavailable Unavailable CHESOKANDICE Aparicio MD Unavailable Unavailable CHESOUKANDICE MD Unavailable Unavailable CHESOKANDICE Aparicio MD Unavailable Unavailable CHESOUKANDICE MD Unavailable Unavailable SOUSOUKANDICE MD Unavailable Unavailable SOUSOUKANDICE MD Unavailable Unavailable SOUSOKANDICE Aparicio MD Unavailable Unavailable SOUSOUKANDICE MD Unavailable Unavailable SOUSOUKANDICE MD Unavailable Unavailable SOUSOU TARRAY PULIDO Unavailable Unavailable SOUSOU, TAREK MD Unavailable Unavailable SOUSOU, TAREK MD Unavailable Unavailable SOUSOU, TAREK MD Unavailable Unavailable SOUSOU TAREK MD Unavailable Unavailable SOUSOU TAREK MD Unavailable Unavailable SOUSOU TARRAY MD Unavailable Unavailable SOUSOUKANDICE MD Unavailable Unavailable SOUSOU TAREK MD Unavailable Unavailable SOUSOU TARRAY MD Unavailable Unavailable SOUSOU TAREK MD Unavailable Unavailable SOUSOU TARRAY MD Unavailable Unavailable SOUSOU TARRAY MD Unavailable Unavailable CHESOU TARRAY PULIDO Unavailable Unavailable CHESOUKANDICE MD Unavailable Unavailable CHESOU TARRAY MD Unavailable Unavailable CHESOUKANDICE MD Unavailable Unavailable CHESOUKANDICE MD Unavailable Unavailable CHESOKANDICE Aparicio MD Unavailable Unavailable CHESOKANDICE Aparicio MD Unavailable Unavailable CHESOKANDICE Aparicio MD Unavailable Unavailable CHESOKANDICE Aparicio MD Unavailable Unavailable CHESOUKANDICE MD Unavailable Unavailable Fiona CONWAY MD Unavailable Unavailable COLOSIMO, KANA Unavailable Unavailable Kai SLADE Unavailable Unavailable Kai SLADE Unavailable Unavailable KORIN DONOHUE MD Unavailable Unavailable KORIN DONOHUE MD Unavailable Unavailable KORIN DONOHUE MD Unavailable Unavailable KORIN DONOHUE MD Unavailable Unavailable KORIN DONOHUE MD Unavailable Unavailable KORIN DONOHUE MD Unavailable Unavailable CELINAKORIN GUAJARDO MD Unavailable Unavailable KORIN DONOHUE MD Unavailable Unavailable KORIN DONOHUE MD Unavailable Unavailable KORIN DONOHUE MD Unavailable Unavailable CELINAKORIN GUAJARDO MD Unavailable Unavailable CELINAKORIN GUAJARDO MD Unavailable Unavailable CELINAKORIN GUAJARDO MD Unavailable Unavailable CELINAKORIN GUAJARDO MD Unavailable Unavailable KORIN DONOHUE MD Unavailable Unavailable KORIN DONOHUE MD Unavailable Unavailable KORIN DONOHUE MD Unavailable Unavailable CELINAKORIN GUAJARDO MD Unavailable Unavailable CELINAKORIN GUAJARDO MD Unavailable Unavailable CELINAKORIN GUAJARDO MD Unavailable Unavailable CELINAKORIN GUAJARDO MD Unavailable Unavailable CELINAKORIN GUAJARDO MD Unavailable Unavailable CELINAKORIN GUAJARDO MD Unavailable Unavailable CELINAMARIAN GUAJARDOHIKA MD Unavailable Unavailable KORIN DONOHUE MD Unavailable Unavailable Peg SESAY MD Unavailable Unavailable Peg SESAY MD Unavailable Unavailable Peg SESAY MD Unavailable Unavailable Peg SESAY MD Unavailable Unavailable Peg SESAY MD Unavailable Unavailable Peg SESAY MD Unavailable Unavailable Peg SESAY MD Unavailable Unavailable Peg SESAY MD Unavailable Unavailable Peg SESAY MD Unavailable Unavailable Peg SESAY MD Unavailable Unavailable Peg SESAY MD Unavailable Unavailable Peg SESAY MD Unavailable Unavailable Peg SESAY MD Unavailable Unavailable Peg SESAY MD Unavailable Unavailable Peg SESAY MD Unavailable Unavailable Peg SESAY MD Unavailable Unavailable Peg SESAY MD Unavailable Unavailable Peg SESAY MD Unavailable Unavailable Peg SESAY MD Unavailable Unavailable Peg SESAY MD Unavailable Unavailable Peg SESAY MD Unavailable Unavailable Peg SESAY MD Unavailable Unavailable Peg SESAY MD Unavailable Unavailable Peg SESAY MD Unavailable Unavailable Peg SESAY MD Unavailable Unavailable Peg SESAY MD Unavailable Unavailable Peg SESAY MD Unavailable Unavailable Peg SESAY MD Unavailable Unavailable Peg SESAY MD Unavailable Unavailable Peg SESAY MD Unavailable Unavailable Peg SESAY MD Unavailable Unavailable Peg SESAY MD Unavailable Unavailable Peg SESAY MD Unavailable Unavailable Leandro Clarke MD Unavailable Unavailable Leandro Clarke MD Unavailable Unavailable Leandro Clarke MD Unavailable Unavailable Leandro Clarke MD Unavailable Unavailable Leandro Clarke MD Unavailable Unavailable Leandro Clarke MD Unavailable Unavailable Leandro Clarke MD Unavailable Unavailable Leandro Clarke MD Unavailable Unavailable Leandro Clarke MD Unavailable Unavailable Leandro Clarke MD Unavailable Unavailable Leandro Clarke MD Unavailable Unavailable Leandro Clarke MD Unavailable Unavailable Leandro Clarke MD Unavailable Unavailable Leandro Clarke MD Unavailable Unavailable Leandro Clarke MD Unavailable Unavailable Leandro Clarke MD Unavailable Unavailable Leandro Clarke MD Unavailable Unavailable PHYSICIAN, PHYSICIAN ER Unavailable Unavailable UR GAVIN, ARIEL YA MD Unavailable Unavailable UR GAVIN, ARIEL YA MD Unavailable Unavailable UR GAVIN, ARIEL YA MD Unavailable Unavailable UR GAVIN, ARIEL YA MD Unavailable Unavailable UR GAVIN, ARIEL YA MD Unavailable Unavailable UR GAVIN, ARIEL YA MD Unavailable Unavailable UR GAVIN, ARIEL YA MD Unavailable Unavailable UR GAVIN, ARIEL YA MD Unavailable Unavailable UR GAVIN, ARIEL YA MD Unavailable Unavailable UR GAVIN, ARIEL YA MD Unavailable Unavailable UR GAVIN, ARIEL YA MD Unavailable Unavailable UR GAVIN, ARIEL YA MD Unavailable Unavailable UR GAVIN, ARIEL YA MD Unavailable Unavailable UR GAVIN, ARIEL YA MD Unavailable Unavailable UR GAVIN, ARIEL YA MD Unavailable Unavailable UR GAVIN, ARIEL YA MD Unavailable Unavailable UR GAVIN, ARIEL YA MD Unavailable Unavailable Hamluis Isiah MD Unavailable Unavailable Hamad Isiah MD Unavailable Unavailable Hamad Isiah MD Unavailable Unavailable Hamad, Isiah MD Unavailable Unavailable Hamad, Isiah MD Unavailable Unavailable Hamad, Isiah MD Unavailable Unavailable Hamad, Isiah MD Unavailable Unavailable Hamad Isiah MD Unavailable Unavailable Hamad Isiah MD Unavailable Unavailable Hamad Isiah MD Unavailable Unavailable Hamad, Isiah MD Unavailable Unavailable Hamad, Isiah MD Unavailable Unavailable Hamad, Isiah MD Unavailable Unavailable Hamad, Isiah MD Unavailable Unavailable Hamad Isiah MD Unavailable Unavailable Hamad Isiah MD Unavailable Unavailable Hamad Isiah MD Unavailable Unavailable Hamad, Isiah MD Unavailable Unavailable Hamad, Isiah MD Unavailable Unavailable Hamad, Isiah MD Unavailable Unavailable Ganley, C Fidelia POST TENSIONING IRONWORKER HELPER Unavailable Unavailable Ganley, C Fidelia POST TENSIONING IRONWORKER HELPER Unavailable Unavailable Ganley, C Fidelia POST TENSIONING IRONWORKER HELPER Unavailable Unavailable Ganley, C Fidelia POST TENSIONING IRONWORKER HELPER Unavailable Unavailable Ganley, C Fidelia POST TENSIONING IRONWORKER HELPER Unavailable Unavailable Ganley, C Fidelia POST TENSIONING IRONWORKER HELPER Unavailable Unavailable Ganley, C Fidelia POST TENSIONING IRONWORKER HELPER Unavailable Unavailable Ganley, C Fidelia POST TENSIONING IRONWORKER HELPER Unavailable Unavailable Ganley, C Fidelia POST TENSIONING IRONWORKER HELPER Unavailable Unavailable Ganley, C Fidelia POST TENSIONING IRONWORKER HELPER Unavailable Unavailable Ganley, C Fidelia POST TENSIONING IRONWORKER HELPER Unavailable Unavailable Ganley, C Fidelia POST TENSIONING IRONWORKER HELPER Unavailable Unavailable Ganley, C Fidelia POST TENSIONING IRONWORKER HELPER Unavailable Unavailable Ganley, C Fidelia POST TENSIONING IRONWORKER HELPER Unavailable Unavailable Ganley, C Fidelia POST TENSIONING IRONWORKER HELPER Unavailable Unavailable Miriam Montaño MD Unavailable Unavailable Miriam Montaño MD Unavailable Unavailable Miriam Montaño MD Unavailable Unavailable Miriam Montaño MD Unavailable Unavailable Miriam Montaño MD Unavailable Unavailable Miriam Montaño MD Unavailable Unavailable Miriam Montaño MD Unavailable Unavailable Miriam Montaño MD Unavailable Unavailable Miriam Montaño MD Unavailable Unavailable Miriam Montaño MD Unavailable Unavailable Miriam Montaño MD Unavailable Unavailable Miriam Montaño MD Unavailable Unavailable Miriam Montaño MD Unavailable Unavailable Miriam Montaño MD Unavailable Unavailable Miriam Montaño MD Unavailable Unavailable Miriam Montaño MD Unavailable Unavailable Miriam Montaño MD Unavailable Unavailable Miriam Montaño MD Unavailable Unavailable Miriam Montaño MD Unavailable Unavailable Miriam Montaño MD Unavailable Unavailable Miriam Montaño MD Unavailable Unavailable Miriam Montaño MD Unavailable Unavailable Miriam Montaño MD Unavailable Unavailable Miriam Montaño MD Unavailable Unavailable Miriam Montaño MD Unavailable Unavailable Miriam Montaño MD Unavailable Unavailable Miriam Montaño MD Unavailable Unavailable Miriam Montaño MD Unavailable Unavailable Miriam Montaño MD Unavailable Unavailable Miriam Montaño MD Unavailable Unavailable Froilan Braxton MD Unavailable Unavailable Froilan Braxton MD Unavailable Unavailable Froilan Braxton MD Unavailable Unavailable Froilan Braxton MD Unavailable Unavailable Froilan Braxton MD Unavailable Unavailable Froilan Braxton MD Unavailable Unavailable Froilan Braxton MD Unavailable Unavailable Froilan Braxton MD Unavailable Unavailable Froilan Braxton MD Unavailable Unavailable Froilan Braxton MD Unavailable Unavailable Froilan Braxton MD Unavailable Unavailable Froilan Braxton MD Unavailable Unavailable Froilan Braxton MD Unavailable Unavailable Froilan Braxton MD Unavailable Unavailable Froilan Braxton MD Unavailable Unavailable Froilan Braxton MD Unavailable Unavailable ARIEL PLAZA MD Unavailable Unavailable ARIEL PLAZA MD Unavailable Unavailable ARIEL PLAZA MD Unavailable Unavailable ARIEL PLAZA MD Unavailable Unavailable ARIEL PLAZA MD Unavailable Unavailable ARIEL PLAZA MD Unavailable Unavailable ARIEL PLAZA MD Unavailable Unavailable UR GAVIN, ARIEL YA MD Unavailable Unavailable UR GAVIN, ARIEL YA MD Unavailable Unavailable UR GAVIN, ARIEL YA MD Unavailable Unavailable UR GAVIN, ARIEL YA MD Unavailable Unavailable UR GAVIN, ARIEL YA MD Unavailable Unavailable UR GAVIN, ARIEL YA MD Unavailable Unavailable UR GAVIN, ARIEL YA MD Unavailable Unavailable UR GAVIN, ARIEL YA MD Unavailable Unavailable UR GAVIN, ARIEL YA MD Unavailable Unavailable UR GAVIN, ARIEL YA MD Unavailable Unavailable TATIANA, RALEIGH JAUREGUI MD Unavailable Unavailable TATIANARALEIGH MD Unavailable Unavailable TATIANARALEIGH MD Unavailable Unavailable TATIANARALEIGH MD Unavailable Unavailable TATIANA, RALEIGH JAUREGUI MD Unavailable Unavailable TATIANA, RALEIGH JAUREGUI MD Unavailable Unavailable TATIANA, RALEIGH JAUREGUI MD Unavailable Unavailable TATIANA, RALEIGH JAUREGUI MD Unavailable Unavailable TATIANARALEIGH MD Unavailable Unavailable TATIANARALEIGH MD Unavailable Unavailable TATIANARALEIGH MD Unavailable Unavailable TATIANARALEIGH MD Unavailable Unavailable TATIANARALEIGH MD Unavailable Unavailable TATIANARALEIGH MD Unavailable Unavailable TATIANARALEIGH MD Unavailable Unavailable TATIANARALEIGH MD Unavailable Unavailable TATIANARALEIGH MD Unavailable Unavailable TATIANARALEIGH MD Unavailable Unavailable TATIANARALEIGH MD Unavailable Unavailable TATIANARALEIGH MD Unavailable Unavailable TATIANARALEIGH MD Unavailable Unavailable TATIANARALEIGH MD Unavailable Unavailable TATIANARALEIGH MD Unavailable Unavailable TATIANARALEIGH MD Unavailable Unavailable TATIANARALEIGH MD Unavailable Unavailable TATIANARALEIGH MD Unavailable Unavailable TATIANARALEIGH MD Unavailable Unavailable TATIANARALEIGH MD Unavailable Unavailable TATIANARALEIGH MD Unavailable Unavailable TATIANARALEIGH MD Unavailable Unavailable TATIANARALEIGH MD Unavailable Unavailable TATIANARALEIGH MD Unavailable Unavailable TATIANARALEIGH SANON MD Unavailable Unavailable TATIANARALEIGH MD Unavailable Unavailable TATIANARALEIGH MD Unavailable Unavailable TATIANARALEIGH MD Unavailable Unavailable TATIANARALEIGH MD Unavailable Unavailable TATIANA, RALEIGH JAUREGUI MD Unavailable Unavailable TATIANA, RALEIGH JAUREGUI MD Unavailable Unavailable TATIANA, RALEIGH JAUREGUI MD Unavailable Unavailable TATIANA, RLAEIGH JAUREGUI MD Unavailable Unavailable TATIANA, RALEIGH JAUREGUI MD Unavailable Unavailable TATIANA, RALEIGH JAUREGUI MD Unavailable Unavailable TATIANA, RALEIGH JAUREGUI MD Unavailable Unavailable TATIANA, RALEIGH JAUREGUI MD Unavailable Unavailable TATIANA, RALEIGH JAUREGUI MD Unavailable Unavailable TATIANA, RALEIGH JAUREGUI MD Unavailable Unavailable TATIANA, RALEIGH JAUREGUI MD Unavailable Unavailable TATIANA, RALEIGH JAUREGUI MD Unavailable Unavailable TATIANA, RALEIGH JAUREGUI MD Unavailable Unavailable TATIANA, RALEIGH JAUREGUI MD Unavailable Unavailable TATIANA, RALEIGH JAUREGUI MD Unavailable Unavailable TATIANA, RALEIGH JAUREGUI MD Unavailable Unavailable TATIANA, RALEIGH JAUREGUI MD Unavailable Unavailable TATIANA, RALEIGH JAUREGUI MD Unavailable Unavailable TATIANA, RALEIGH JAUREGUI MD Unavailable Unavailable TATIANA, RALEIGH JAUREGUI MD Unavailable Unavailable TATIANA, RALEIGH JAUREGUI MD Unavailable Unavailable TATIANA, RALEIGH JAUREGUI MD Unavailable Unavailable TATIANA, RALEIGH JAUREGUI MD Unavailable Unavailable TATIANA, RALEIGH JAUREGUI MD Unavailable Unavailable TATIANA, RALEIGH JAUREGUI MD Unavailable Unavailable TATIANA, RALEIGH JAUREGUI MD Unavailable Unavailable TATIANA, RALEIGH JAUREGUI MD Unavailable Unavailable TATIANA, RALEIGH JAUREGUI MD Unavailable Unavailable TATIANARALEIGH MD Unavailable Unavailable TATIANA, RALEIGH JAUREGUI MD Unavailable Unavailable TATIANA, RALEIGH JAUREGUI MD Unavailable Unavailable TATIANA, RALEIGH JAUREGUI MD Unavailable Unavailable TATIANA, RALEIGH JAUREGUI MD Unavailable Unavailable TATIANARALEIGH MD Unavailable Unavailable TATIANARALEIGH MD Unavailable Unavailable TATIANA, RALEIGH JAUREGUI MD Unavailable Unavailable TATIANA, RALEIGH JAUREGUI MD Unavailable Unavailable TATIANA, RALEIGH JAUREGUI MD Unavailable Unavailable TATIANA, RALEIGH JAUREGUI MD Unavailable Unavailable TATIANA, RALEIGH JAUREGUI MD Unavailable Unavailable TATIANARALEIGH MD Unavailable Unavailable CANDY BARNES Unavailable Unavailable Guru Liu MD Unavailable Unavailable Guru Liu MD Unavailable Unavailable Guru Liu MD Unavailable Unavailable Guru Liu MD Unavailable Unavailable Gail, Guru Kenney MD Unavailable Unavailable Gail, Guru Kenney MD Unavailable Unavailable Gail, Guru Kenney MD Unavailable Unavailable Gail, Guru Kenney MD Unavailable Unavailable Gail, Guru Kenney MD Unavailable Unavailable Gail, Guru Kenney MD Unavailable Unavailable Gail, Guru Kenney MD Unavailable Unavailable Gail, Guru Kenney MD Unavailable Unavailable Gail, Guru Kenney MD Unavailable Unavailable Gali, Guru Kenney MD Unavailable Unavailable Gail, Guru Kenney MD Unavailable Unavailable Gail, Guru Kenney MD Unavailable Unavailable Gail, Guru Kenney MD Unavailable Unavailable Gail, Guru Kenney MD Unavailable Unavailable Gail, Guru Kenney MD Unavailable Unavailable Gail, Guru Kenney MD Unavailable Unavailable Gail, Guru Kenney MD Unavailable Unavailable Gail, Guru Kenney MD Unavailable Unavailable Gail, Guru Kenney MD Unavailable Unavailable Gail, Guru Kenney MD Unavailable Unavailable Gail, Guru Kenney MD Unavailable Unavailable Gail, Guru Kenney MD Unavailable Unavailable Gail, Guru Kenney MD Unavailable Unavailable Gail, Guru Kenney MD Unavailable Unavailable Gail, Guru Kenney MD Unavailable Unavailable Gail, Guru Kenney MD Unavailable Unavailable Gail, Guru Kenney MD Unavailable Unavailable Gail, Guru Kenney MD Unavailable Unavailable Gail, Guru Kenney MD Unavailable Unavailable Gail, Guru Kenney MD Unavailable Unavailable Gail, Guru Kenney MD Unavailable Unavailable Gail, Guru Kenney MD Unavailable Unavailable Gail, Guru Kenney MD Unavailable Unavailable Gail, Guru Kenney MD Unavailable Unavailable Gail, Guru Kenney MD Unavailable Unavailable Gail, Guru Kenney MD Unavailable Unavailable Gail, Guru Kenney MD Unavailable Unavailable Gail, Guru Kenney MD Unavailable Unavailable GLAUBER, Charlie CASTILLO MD Unavailable Unavailable GLACharlie ORTEGA MD Unavailable Unavailable GLASHANNON, Charlie CASTILLO MD Unavailable Unavailable GLASHANNON, Charlie CASTILLO MD Unavailable Unavailable GLASHANNON, Charlie CASTILLO MD Unavailable Unavailable GLAUBER, Charlie CASTILLO MD Unavailable Unavailable GLAUBER, Charlie CASTILLO MD Unavailable Unavailable GLACharlie ORTEGA MD Unavailable Unavailable GLAChalrie ORTEGA MD Unavailable Unavailable GLACharlie ORTEGA MD Unavailable Unavailable GLASHANNON, Charlie CASTILLO MD Unavailable Unavailable GLAUBER, Charlie CASTILLO MD Unavailable Unavailable GLAUBER, Charlie CASTILLO MD Unavailable Unavailable GLAUBER, Charlie CASTILLO MD Unavailable Unavailable GLACharlie ORTEGA MD Unavailable Unavailable GLASHANNON, Charlie CASTILLO MD Unavailable Unavailable GLASHANNON, Charlie CASTILLO MD Unavailable Unavailable PHYSICIAN, ER Unavailable Unavailable Re-disclosure Warning The records that you are about to access may contain information from federally-assisted alcohol or drug abuse programs. If such information is present, then the following federally mandated warning applies: This information has been disclosed to you from records protected by federal confidentiality rules (42 CFR part 2). The federal rules prohibit you from making any further disclosure of this information unless further disclosure is expressly permitted by the written consent of the person to whom it pertains or as otherwise permitted by 42 CFR part 2. A general authorization for the release of medical or other information is NOT sufficient for this purpose. The Federal rules restrict any use of the information to criminally investigate or prosecute any alcohol or drug abuse patient.The records that you are about to access may contain highly sensitive health information, the redisclosure of which is protected by Article 27-F of the [facility] Public Health law. If you continue you may have access to information: Regarding HIV / AIDS; Provided by facilities licensed or operated by the [facility] Office of Mental Health; or Provided by the [facility] Office for People With Developmental Disabilities. If such information is present, then the following [facility] mandated warning applies: This information has been disclosed to you from confidential records which are protected by state law. State law prohibits you from making any further disclosure of this information without the specific written consent of the person to whom it pertains, or as otherwise permitted by law. Any unauthorized further disclosure in violation of state law may result in a fine or custodial sentence or both. A general authorization for the release of medical or other information is NOT sufficient authorization for further disc losure. Allergies and Adverse Reactions Type Description Substance Reaction Status Data Source(s ) No Known Environmental Allergies No Known Environmental Al [facility] No Known Food Allergies No Known Food Allergies [facility] Propensity to adverse reactions PCN (penicillin) PCN (penicillin) ANDERS H [facility] Drug allergy Penicillins Penicillins C/O: a rash [facility] Propensity to adverse reactions PENICILLINS Penicillins Rash [facility] Low Propensity to adverse reactions PENICILLINS Penicillin Rash [facility] Family History Family Member Name Family Member Gender Family Member Status Date o f Status Description Data Source(s) Unknown Male Problem [facility] ([facility] ) Encounters Encounter Providers Location Date Indications Data Source(s ) Outpatient Attender: Edison Thacker MD 07/31/2021 12:00:00 AM [facility] Outpatient Attender: CANDY Barrerasultant: Vladislav bowman MD 07/26/2021 08:15:00 AM EST - 07/26/2021 09:15:00 AM [facility] Outpatient Attender: Candy Barnes MDReferrer: Vladislav Osorio MD [id number] 07/22/2021 11:13:59 AM EST [facility] Outpatient Attender: CANDY Yaoltant: Vladislav bowman MD 07/19/2021 09:49:14 AM [facility] Inpatient Attender: ANTONIO Hdez nder: LOIS Beltranender: KORIN DONOHUE MDAttender: JONATHAN SHEETS MDAttender: MIHIR BARAJASAdmitter: JONATHAN SHEETS MD [id number] 07/15/2021 02:19:00 PM EST - 07/24/2021 02:01:[address] [facility] Patient discharged. Outpatient Attender: CANDY Yaoltant: Vladislav bowman MD 07/15/2021 08:44:00 AM [facility] - 07/15/2021 09:44:00 AM [facility] Outpatient Referrer: KANA FLOYD MOB-MOB.PAT 2020 09:39:09 AM EST - 07/13/2021 09:39:21 AM EST [facility] Outpatient Attender: GLADIS MANN MDAttender: Froilan Braxton MDAdmitter: GLADIS MANN MD ES1-[id number].CVAU 07/11/2021 07:20:11 PM EST [facility] Outpatient Attender: Candy Barnes MDReferrer: Vladislav Osorio MD [id number] 07/07/2021 03:56:50 PM EST [facility] Outpatient Referrer: JACQUELINE MATHUR MD MOB-MOB.PAT 12/2020 09:31:06 AM EDT - 06/30/2021 09:31:09 AM EDT [facility] Outpatient Attender: Froilan Braxton MDAt tender: GLADIS FLOREZABRESE MDAdmitter: GLADIS WHALENESE MDReferrer: JACQUELINE MATHUR MD [id number].CVAU 06/28 10:53:33 AM EDT - 07/05/2021 04:07:00 PM EST [facility] Patient discharged. Outpatient Attender: Candy Barnes MDReferrer: Vladislav Osorio MD [id number] 06/26/2021 01:34:26 PM EDT [facility] Out[facility] Attender: Candy Barnes MDReferrer: Vladislav Osorio MD _[id number] 06/26/2021 01:34:26 PM EDT [facility] Outpatient Attender: MARIANN GUSTAFSONHARRISTOWNConsultant: Vladislav sabillon MD 06/23/2021 07:59:00 AM EDT - 06/23/2021 08:59:00 AM EDT [facility] Outpatient Attender: Candy Barnes MDReferrer: Vladislav Osorio MD [id number] 06/22/2021 06:30:47 PM EDT [facility] Outpatient Attender: Candy Barnes MDReferrer: Vladislav Osorio MD [id number] 06/22/2021 06:30:37 PM EDT [facility] Outpatient Attender: Candy Barnes MDReferrer: Vladislav Osorio MD _[id number] 06/22/2021 06:30:37 PM EDT [facility] Outpatient Attender: Candy Barnes MDReferrer: Vladislav Osorio MD _[id number] 06/22/2021 05:45:24 PM EDT [facility] Outpatient Attender: Candy Barnes MDReferrer: Vladislav Osorio MD _[id number] 06/22/2021 05:45:22 PM EDT [facility] Outpatient Attender: Candy Barnes MDReferrer: Vladislav Osorio MD _[id number] 06/20/2021 05:45:23 PM EDT [facility] Outpatient Attender: Candy Barnes MDReferrer: Vladislav Osorio MD _[id number] 06/20/2021 05:45:23 PM EDT [facility] Inpatient Attender: MARIANN SESAY MD Attender: YA ALONSO MDAttender: ER PHYSICIAN 06/20/2021 04:20:17 PM EDT [facility] Inpatient Attender: MARIANN SESAY MD Attender: YA ALONSO MDAttender: ER PHYSICIANAdmitter: MARIANN SESAY MD 06/20/2021 02:58 :00 PM EDT - 06/21/2021 05:25:00 PM EDT SYMPTOMATIC ANEMIA [facility] SYMPTOMATIC ANEMIA Patient discharged. Outpatient Referrer: KANA FLOYD MOB-MOB.PAT 2020 09:53:38 AM EDT - 06/17/2021 09:53:46 AM EDT [facility] Outpatient Attender: Edison Thacker MD [id number] 06/16/2021 12:00:0 0 AM EDT [facility] Outpatient Attender: Froilan Braxton MDAt tender: GLADIS MANN MDAdmitter: GLADIS MANN MD [id number].CVAU 06/14/2021 09:53:49 AM EDT [facility] Outpatient Attender: Candy Barnes MDReferrer: Vladislav Osorio MD [id number] 06/09/2021 07:23:58 PM EDT [facility] Outpatient Attender: Candy Barnes MDReferrer: Vladislav Osorio MD [id number] 06/09/2021 12:04:00 PM EDT [facility] Outpatient Attender: Candy Barnes MDReferrer: Vladislav Osorio MD [id number] 06/09/2021 12:03:51 PM EDT [facility] Outpatient Referrer: KANA HORNEMOB.PAT 2020 10:06:08 AM EDT - 06/09/2021 10:06:11 AM EDT [facility] Outpatient Attender: Candy Barnes MDReferrer: Vladislav Osorio MD _[id number] 06/08/2021 07:13:28 PM EDT [facility] Out[facility] Attender: Candy Barnes MDReferrer: Vladislav Osorio MD _[id number] 06/07/2021 03:07:27 PM EDT [facility] Outpatient Attender: GLADIS MANN MDAttender: Froilan Braxton MDAdmitter: GLADIS MANN MD [id number].CVAU 06/06/2021 04:43:37 PM EDT [facility] Outpatient Attender: Candy Barnes MDAdmitter: Candy Barnes MDReferrer: Candy Barnes MD [id number] 06/06/2021 08:00:00 AM EDT - 06/06/2021 11:59:00 PM EDT [facility] Patient discharged. Outpatient Attender: Candy Barnes MDReferrer: Vladislav Osorio MD [id number] 06/05/2021 07:06:27 PM EDT [facility] Outpatient Attender: Candy Barnes MDReferrer: Vladislav Osorio MD [id number] 06/05/2021 05:21:26 PM EDT [facility] Outpatient Attender: Candy Barnes MDReferrer: Vladislav Osorio MD [id number] 06/05/2021 03:39:24 PM EDT [facility] Outpatient Attender: Candy Barnes MD 06/05/2021 11:36 :00 AM EDT [facility] Outpatient Attender: Candy Barnes MD 06/05/2021 11:36 :00 AM EDT [facility] Outpatient Attender: Candy Barnes MDReferrer: Vladislav Osorio MD _[id number] 05/26/2021 02:20:29 PM EDT [facility] Outpatient Attender: Candy Barnes MDReferrer: Vladislav Osorio MD _[id number] 05/26/2021 01:24:30 PM EDT [facility] Outpatient Attender: Candy Barnes MDReferrer: Vladislav Osorio MD _[id number] 05/25/2021 05:35:58 PM EDT [facility] Outpatient Attender: Candy Barnes MDReferrer: Vladislav Osorio MD _[id number] 05/25/2021 05:35:49 PM EDT [facility] Outpatient Attender: Candy Barnes MDReferrer: Vladislav Osorio MD _[id number] 05/21/2021 09:47:41 AM EDT [facility] Outpatient Referrer: Candy Barnes MD MOB-MOB.PAT 0 05/19/2021 10:15:23 AM EDT - 05/19/2021 10:15:27 AM EDT [facility] Outpatient Attender: Candy Barnes MDReferrer: Vladislav Osorio MD _[id number] 05/17/2021 01:54:25 PM EDT [facility] Outpatient Attender: Candy Barnes MDReferrer: Vladislav Osorio MD _[id number] 05/15/2021 06:22:24 PM EDT [facility] Outpatient Attender: Candy Barnes MDReferrer: Vladislav Osorio MD _[id number] 05/15/2021 06:22:22 PM EDT [facility] Outpatient Attender: Candy Barnes MDReferrer: Vladislav Osorio MD _[id number] 05/15/2021 06:22:13 PM EDT [facility] Outpatient Attender: Candy Barnes MDReferrer: Vladislav Osorio MD _[id number] 05/15/2021 06:22:02 PM EDT [facility] Outpatient Attender: Candy Barnes MDReferrer: Vladislav Osorio MD _[id number] 05/15/2021 01:27:27 PM EDT [facility] Outpatient Attender: Candy Barnes MDReferrer: Vladislav Osorio MD _[id number] 05/15/2021 01:07:33 PM EDT [facility] Outpatient Attender: Froilan Braxton MDAt tender: GLADIS MANN MDAdmitter: GLADIS MANN MDReferrer: Candy Barnes MD [id number].CVAU 04:47:42 PM EDT - 05/24/2021 04:40:00 PM EDT [facility] Patient discharged. Outpatient Attender: Candy Barnes MDReferrer: Vladislav Osorio MD _[id number] 05/11/2021 07:57:58 PM EDT [facility] Outpatient Attender: CANDY BARNESConsultant: Vladislav bowman MD 05/11/2021 07:10:00 AM EDT - 05/11/2021 08:10:00 AM EDT [facility] Outpatient Attender: Candy Barnes MDReferrer: Vladislav Osorio MD _[id number] 05/08/2021 02:55:13 PM EDT [facility] Outpatient Attender: Candy Barnes MDReferrer: Vladislav Osorio MD _[id number] 05/08/2021 02:55:01 PM EDT [facility] Outpatient Attender: Candy Barnes MDReferrer: Vladislav Osorio MD _[id number] 05/05/2021 02:34:08 PM EDT [facility] Outpatient 05/05/2021 02:30:00 PM EDT [facility] Outpatient Attender: Candy Barnes MDReferrer: Vladislav Osorio MD _[id number] 05/03/2021 03:54:14 PM EDT [facility] Outpatient Attender: Candy aBrnes MDReferrer: Vladislav Osorio MD _[id number] 04/30/2021 09:56:09 AM EDT [facility] Outpatient Referrer: KANA HORNEMOBWILLAM 2020 08:05:40 AM EDT - 04/29/2021 08:05:44 AM EDT [facility] Outpatient Attender: Candy Barnes MD 04/24/2021 01:51 :00 PM EDT [facility] Outpatient Attender: Candy Barnes MDReferrer: Vladislav Osoiro MD _[id number] 04/24/2021 01:04:14 PM EDT [facility] Outpatient Attender: Candy Barnes MDReferrer: Vladislav Osorio MD _[id number] 04/24/2021 11:53:07 AM EDT [facility] Outpatient Attender: Froilan Braxton MDAt tender: GLADIS MANN MDAdmitter: GLADIS MANN MDReferrer: BRENNAN ZAVALA [id number] 021 10:24:03 AM EDT - 05/04/2021 03:41:00 PM EDT [facility] Patient discharged. Outpatient Attender: Candy Barnes MDReferrer: Vladislav Osorio MD [id number] 04/21/2021 06:08:22 PM EDT [facility] Outpatient Attender: Candy Barnes MDReferrer: Vladislav Osorio MD _[id number] 04/21/2021 05:55:22 PM EDT [facility] Outpatient Attender: Candy Cameron MDReferrer: Vladislav Osorio MD _[id number] 04/20/2021 05:24:16 PM EDT [facility] Outpatient Attender: Candy Barnes MDReferrer: Vladislav Osorio MD _[id number] 04/20/2021 05:23:13 PM EDT [facility] Outpatient Attender: Candy Barnes MDReferrer: Vladislav Osorio MD _[id number] 04/19/2021 07:06:04 PM EDT [facility] Outpatient Attender: Candy Barnes MDReferrer: Vladislav Osorio MD _[id number] 04/17/2021 12:46:21 PM EDT [facility] Outpatient Attender: Candy Barnes MDReferrer: Vladislav Osorio MD _[id number] 04/13/2021 07:08:50 PM EDT [facility] Outpatient Attender: COLOSIMOConsultant: Vladislav sabillon MD 04/04/2021 08:46:00 AM EDT - 04/04/2021 09:46:00 AM EDT [facility] Outpatient Referrer: Fidelia Dixon NP MOB-MOB.PAT 2020 09:50:47 AM EDT - 04/02/2021 09:51:02 AM EDT [facility] Outpatient Attender: Candy Cameron MDReferrer: Vladislav Osorio MD _[id number] 03/31/2021 05:43:43 PM EDT [facility] Outpatient Attender: Candy Barnes MDReferrer: Vladislav Osorio MD _[id number] 03/31/2021 05:43:30 PM EDT [facility] Outpatient Attender: GLADIS MANN MDAttender: Froilan Braxton MDAdmitter: GLADIS MANN MDReferrer: Fidelia Dixon NP [id number].CVAU 021 10:53:11 AM EDT - 04/07/2021 02:30:00 PM EDT [facility] Patient discharged. Inpatient Attender: JUVENTINO COLLINS MDA ttender: Candy Barnes MDAdmitter: Candy Barnes MD [id number] 03/27/2021 11:04:00 AM EDT - 04/01/2021 03:41:00 PM EDT [facility] Patient discharged. Outpatient Attender: Candy Barnes MDReferrer: Vladislav Osorio MD _[id number] 03/23/2021 12:03:24 PM EDT [facility] Outpatient Attender: Candy Barnes MDReferrer: Vladislav Osorio MD _[id number] 03/23/2021 12:03:14 PM EDT [facility] Outpatient Attender: Candy Barnes MDReferrer: Vladislav Osorio MD _[id number] 03/22/2021 12:17:36 PM EDT [facility] Outpatient Attender: Candy Barnes MDReferrer: Vladislav Osorio MD _[id number] 03/21/2021 07:09:27 PM EDT [facility] Outpatient Attender: Candy Barnes MDReferrer: Vladislav Osorio MD _[id number] 03/21/2021 06:52:54 PM EDT [facility] Outpatient Attender: Candy Barnes MDReferrer: Vladislav Osorio MD _[id number] 03/21/2021 06:37:02 PM EDT [facility] Out[facility] Attender: Candy Barnes MDReferrer: Vladislav Osorio MD _[id number] 03/21/2021 06:20:28 PM EDT [facility] Out[facility] Attender: Candy Barnes MDReferrer: Vladislav Osorio MD _[id number] 03/21/2021 06:20:10 PM EDT [facility] Outpatient Attender: Candy Barnes MDReferrer: Vladislav Osorio MD _[id number] 03/21/2021 06:19:27 PM EDT [facility] Out[facility] Attender: Candy Barnes MDReferrer: Vladislav Osorio MD _[id number] 03/21/2021 12:00:40 PM EDT [facility] Out[facility] Attender: Candy Barnes MDReferrer: Vladislav Osorio MD _[id number] 03/21/2021 12:00:39 PM EDT [facility] <td ID="encounterTypeDescriptionID0">STA NDARD OV</td><td>Vladislav Osorio MD</td><td>[facility]</td><td>03/20/2021</td><td>3:57PM</td><td>02/06/2021 11:59PM</td><td><content ID="encounterDiagnosisID0-0">Neutropenia Drug-induced Chemotherapy</content>, <content ID="encounterDiagnosisID0- 1">Depression</content>, <content ID="encounterDiagnosisID0-2">Peripheral Neuropathy Sensory</content>, <content ID="encounterDiagnosisID0-3">Chronic Pain</content>, <content ID="encounterDiagnosisID0-4">Lymphoma Large Cell Head, Face, & Neck</content>, <content ID="encounterDiagnosisID0-5">Organic Sleep Apnea Obstructive Adult</content>, <content ID="encounterDiagnosisID0- 6">Coronary Artery Disease</content>, <content ID="encounterDiagnosisID0-7"> Candidiasis Oral Thrush</content>, <content ID="encounterDiagnosisID0-8">Rhythm Disorder</content>, <content ID="encounterDiagnosisID0-9">Undiagnosed Cardiac Murmur</content></td>Outpatient Attender: Vladislav Osorio MD [facility], 03/20/2021 03:57:00 PM EDT - 02/06/2021 11:59:00 PM ED T Undiagnosed Cardiac MurmurRhythm DisorderCandidiasis Oral ThrushOrganic Sleep Apnea Obstructive AdultLymphoma Large Cell Head, Face, & NeckChronic PainPeripheral Neuropathy SensoryDepressionNeutropenia Drug-induced ChemotherapyCoronary Artery Disease [place] ([facility]) Undiagnosed Cardiac Murmur Rhythm Disorder Candidiasis Oral Thrush Organic Sleep Apnea Obstructive Adult Lymphoma Large Cell Head, Face, & Neck Chronic Pain Peripheral Neuropathy Sensory Depression Neutropenia Drug-induced Chemotherapy Coronary Artery Disease Inpatient Attender: HAJA NUNEZ MDAtt dereje: Isiah Clark MDAttender: LOIS Beltranender: TRACEE CONWAYAttender: TRACEE CONWAY MDAdmitter: LOIS VILLASEÑORonsultant: JACQUELINE VALENTIN MD [id number] 03/09/2021 09:37:00 AM EDT - 03/15/2021 06:15:00 PM EDT [facility] Patient discharged. Outpatient Attender: [facility] 03/08/2021 11:3 7:00 PM EDT [facility] Emergency Attender: DANILO BLACKConsultant: Vladislav sabillon MD 03/08/2021 10:20:00 PM EDT - 03/09/2021 07:35:00 AM EDT [facility] Patient discharged. Emergency Attender: MARY ELLEN MCFARLAND MDConsultant: Vladislav sabillon MD 03/08/2021 02:39:00 AM EDT - 03/08/2021 07:31:00 AM EDT [facility] Patient discharged. Outpatient Attender: Candy Barnes MDReferrer: Vladislav Osorio MD [id number] 03/07/2021 05:46:11 PM EDT [facility] Out[facility] Attender: Candy Barnes MDReferrer: Vladislav Osorio MD [id number] 03/06/2021 02:17:51 PM EDT [facility]: Candy Barnes MDReferrer: Vladislav Osorio MD 03/03/2021 07:52:11 PM EDT [facility] Emergency Attender: MARY ELLEN MCFARLAND MDConsultant: Vladislav sabillon MD 03/02/2021 10:48:00 PM EDT - 03/03/2021 03:37:00 AM EDT [facility] Patient discharged. Outpatient Attender: Candy Barnes MDReferrer: Vladislav Osorio MD 03/02/2021 06:08:20 PM EDT [facility] Outpatient Attender: Candy Barnes MDReferrer: Vladislav Osorio MD 03/01/2021 06:46:19 PM EDT [facility] Outpatient Attender: Candy Barnes MDReferrer: Vladislav Osorio MD 03/01/2021 06:38:24 PM EDT [facility] Outpatient Referrer: SHIRLENE DALEY MD 02/24/2021 09:54:00 PM EDT - 02/24/2021 11:59:00 PM EDT Diffuse large B-cell lymphoma, unspecified site [facility] Diffuse large B-cell lymphoma, unspecifi ed site Outpatient Attender: Candy Barnes MDReferrer: Vladislav Osorio MD 02/24/2021 03:53:21 PM EDT [facility] Outpatient Attender: Candy Barnes MD 02/24/2021 03:47 :55 PM EDT [facility] Inpatient Attender: Avery Bajwa MDA ttender: KANDICE FLORES MDAttender: Candy Barnes MDAttender: SHAYLAREYNALDOLavell CONWAYAttender: SHAYLABROWN KARAN MDAttender: Moiraantoninokai Jaynathomasmoiraalvin MDAdmitter: TRACEE CONWAY MDConsultant: Jane Soares DoConsultant: Candy Barnes MD [id number] 02/23/2021 08:55:00 PM EDT - 03/02/2021 03:13:00 PM EDT [facility] Patient discharged. Outpatient Referrer: PROVIDER SYSTEM [place] 02/22/2021 08:48:0 0 PM EDT [facility] Office Visit Attender: Edvin Hernandez PH.D., M.D. Lucio/Armando/Kai lubin/Hans 02/20/2021 02:45:00 PM EDT [facility] ([facility] Olivier nelson, ) Outpatient Attender: Miriam Valdes/Armando/Higinio/Sridhar ndl 02/16/2021 11:30:00 AM EDT [facility] ([facility] Thomas gaffney, ) Outpatient Admitter: VERNON PINAJUAREZRAMONReferrer: VERNON PINAJUAREZRAMON 02/13/2021 12:00:00 AM EDT Other diseases of pharynx [facility] Other diseases of pharynx Outpatient<td ID="encounterTypeDescripti onID2">SURGICAL CLEARANCE</td><td>Vladislav Osorio MD</td><td>[facility]</td><td>02/06/2021</td><td>3:44PM</td><td>4:38PM</td><td><content ID="encounterDiagnosisID2-0">Essential Hypertension Benign</content>, <content ID="encounterDiagnosisID2-1">Coronary Artery Disease</content>, <content ID="encounterDiagnosisID2-2">Atherosclerosis Carotid Artery</content>, <content ID="encounterDiagnosisID2-3">Hyperlipidemia</content>, <content ID="encounterDiagnosisID2-4">Nasopharyngeal Neoplasm of Uncertain Behavior</content></td> Attender: Vladislav Osorio MD [facility] 02/06/2021 03:44:00 PM EDT - 02/06/2021 04:38:00 PM ED T Nasopharyngeal Neoplasm of Uncertain BehaviorHyperlipidemiaEssential Hypertension BenignNasopharyngeal Neoplasm of Uncertain BehaviorHyperlipidemiaEssential Hypertension BenignAtherosclerosis Carotid ArteryAtherosclerosis Carotid ArteryCoronary Artery DiseaseCoronary Artery Disease [place] ([facility]) Nasopharyngeal Neoplasm of Uncertain Beh avior Hyperlipidemia Essential Hypertension Benign Nasopharyngeal Neoplasm of Uncertain Beh avior Hyperlipidemia Essential Hypertension Benign Atherosclerosis Carotid Artery Atherosclerosis Carotid Artery Coronary Artery Disease Coronary Artery Disease <td ID="encounterTypeDescriptionID1">[Pa tient Encounter]</td><td>Vladislav Osorio MD</td><td></td><td>02/28/2021</td><td>02/06/2021 9:46AM</td><td>02/06/2021 11:59PM</td><td></td>Outpatient Attender: Vladislav Osorio MD 0 02/06/2021 09:46:00 AM EDT - 02/06/2021 11:59:00 PM EDT [place] ([facility]) Outpatient Attender: Miriam Montaño MDConsultant: Vladislav pedroza MD 02/02/2021 07:03:00 AM EDT - 02/02/2021 08:03:00 AM EDT [facility] Outpatient Attender: Edvin Hernandez PH.Catalino, MCory Valdes/Dennis lubin/Hans 02/01/2021 01:00:00 PM EDT [facility] ([facility]) Outpatient Attender: Edvin Hernandez PH.[place]., MCory Valdes/Dennis lubin/Hans 01/25/2021 11:15:00 AM EDT [facility] ([facility]) Outpatient<td ID="encounterTypeDescripti onID3">STANDARD OV</td><td>Vladislav Osorio MD</td><td>[facility]</td><td>01/17/2021</td><td>12:55PM</td><td>1:39PM</td><td><content ID="encounterDiagnosisID3-0">Essential Hypertension Benign</content>, <content ID="encounterDiagnosisID3-1">Hyperlipidemia</content>, <content ID="encounterDiagnosisID3-2">Heartburn</content>, <content ID="encounterDiagnosisID3-3">Allergic Rhinitis</content>, <content ID="encounterDiagnosisID3-4">Coronary Artery Disease</content>, <content ID="encounterDiagnosisID3-5">Menopause</content>, <content ID="encounterDiagnosisID3-6">Otitis Media Acute Serous Right Ear</content></td> Attender: Vladislav Osorio MD [facility] 01/17/2021 12:55:00 PM EDT - 01/17/2021 01:39:00 PM EDT Otitis Media Acute Serous Right EarMenopauseAllergic RhinitisHeartburnHyperlipidemiaEssential Hypertension BenignOtitis Media Acute Serous Right EarMenopauseAllergic RhinitisHeartburnHyperlipidemiaEssential Hypertension BenignOtitis Media Acute Serous Right EarMenopauseAllergic RhinitisHeartburnHyperlipidemiaEssential Hypertension BenignCoronary Artery DiseaseCoronary Artery DiseaseCoronary Artery Disease [place] ([facility]) Otitis Media Acute Serous Right Ear Menopause Allergic Rhinitis Heartburn Hyperlipidemia Essential Hypertension Benign Otitis Media Acute Serous Right Ear Menopause Allergic Rhinitis Heartburn Hyperlipidemia Essential Hypertension Benign Otitis Media Acute Serous Right Ear Menopause Allergic Rhinitis Heartburn Hyperlipidemia Essential Hypertension Benign Coronary Artery Disease Coronary Artery Disease Coronary Artery Disease <td ID="encounterTypeDescriptionID4">STA NDARD OV</td><td>Vladislav Osorio MD</td><td>[facility]</td><td>12/29/2020</td><td>9:06AM</td><td>10:13AM</td><td><content ID="encounterDiagnosisID4-0">Cerumen Impaction - Both Ears</content>, <content ID="encounterDiagnosisID4-1">Eustachian Tube Dysfunction</content></td>Outpatient Attender: Vladislav Osorio MD [facility], 12/29/2020 09:06:00 AM EDT - 12/29/2020 10:13:00 AM ED T Eustachian Tube DysfunctionCerumen Impaction - Both EarsEustachian Tube DysfunctionCerumen Impaction - Both EarsEustachian Tube DysfunctionCerumen Impaction - Both Ears [place] ([facility]) Eustachian Tube Dysfunction Cerumen Impaction - Both Ears Eustachian Tube Dysfunction Cerumen Impaction - Both Ears Eustachian Tube Dysfunction Cerumen Impaction - Both Ears <td ID="encounterTypeDescriptionID5">STA NDARD OV</td><td>Vladislav Osorio MD</td><td>[facility],</td><td>10/19/2020</td><td>2:41PM</td><td>3:35PM</td><td><content ID="encounterDiagnosisID5-0">Menopause</content>, <content ID="encounterDiagnosisID5-1">Essential Hypertension Benign</content>, <content ID="encounterDiagnosisID5-2">Hyperlipidemia</content>, <content ID="encounterDiagnosisID5-3">Coronary Artery Disease</content></td>Outpatient Attender: Vladislav Osorio MD [facility], 10/19/2020 02:41:00 PM EST - 10/19/2020 03:35:00 PM EST HyperlipidemiaEssential Hypertension BenignMenopauseHyperlipidemiaEssential Hypertension BenignMenopauseHyperlipidemiaEssential Hypertension BenignMenopauseHyperlipidemiaEssential Hypertension BenignMenopauseCoronary Artery DiseaseCoronary Artery DiseaseCoronary Artery DiseaseCoronary Artery Disease [place] ([facility]) Hyperlipidemia Essential Hypertension Benign Menopause Hyperlipidemia Essential Hypertension Benign Menopause Hyperlipidemia Essential Hypertension Benign Menopause Hyperlipidemia Essential Hypertension Benign Menopause Coronary Artery Disease Coronary Artery Disease Coronary Artery Disease Coronary Artery Disease <td ID="encounterTypeDescriptionID6">MED ICARE ANNUAL WELLNESS/RISK ASSESSMENT</td><td>Vladislav Osorio MD</td><td>[facility],</td><td>07/19/2020</td><td>1:28PM</td><td>2:12PM</td><td><content ID="encounterDiagnosisID6-0">Current Smoker</content>, <content ID="encounterDiagnosisID6-1">Tobacco Use</content>, <content ID="encounterDiagnosisID6-2">Visit For: Screening Exam Cardiovascular Disorders</content>, <content ID="encounterDiagnosisID6-3">Routine History & Physical Senior Citizen with Abnormal Findings</content>, <content ID="encounterDiagnosisID6-4">Screening For Diabetes Mellitus</content></td>Outpatient Attender: Vladislav Osorio MD [facility], 07/19/2020 01:28:00 PM EST - 07/19/2020 02:12:00 PM ES T Screening For Diabetes MellitusRoutine History & Physical Senior Citizen with Abnormal FindingsVisit For: Screening Exam Cardiovascular DisordersTobacco UseCurrent SmokerScreening For Diabetes MellitusRoutine History & Physical Senior Citizen with Abnormal FindingsVisit For: Screening Exam Cardiovascular DisordersTobacco UseCurrent SmokerScreening For Diabetes MellitusRoutine History & Physical Sen ior Citizen with Abnormal FindingsVisit For: Screening Exam Cardiovascular DisordersTobacco UseCurrent SmokerScreening For Diabetes MellitusRoutine History & Physical Senior Citizen with Abnormal FindingsVisit For: Screening Exam Card iovascular DisordersTobacco UseCurrent SmokerScreening For Diabetes MellitusRoutine History & Physical Senior Citizen with Abnormal FindingsVisit For: Screening Exam Cardiovascular DisordersTobacco UseCurrent Smoker [place] ([facility]) Screening For Diabetes Mellitus Routine History & Physical Senior Citize n with Abnormal Findings Visit For: Screening Exam Cardiovascular Disorders Tobacco Use Current Smoker Screening For Diabetes Mellitus Routine History & Physical Senior Citize n with Abnormal Findings Visit For: Screening Exam Cardiovascular Disorders Tobacco Use Current Smoker Screening For Diabetes Mellitus Routine History & Physical Senior Citize n with Abnormal Findings Visit For: Screening Exam Cardiovascular Disorders Tobacco Use Current Smoker Screening For Diabetes Mellitus Routine History & Physical Senior Citize n with Abnormal Findings Visit For: Screening Exam Cardiovascular Disorders Tobacco Use Current Smoker Screening For Diabetes Mellitus Routine History & Physical Senior Citize n with Abnormal Findings Visit For: Screening Exam Cardiovascular Disorders Tobacco Use Current Smoker <td ID="encounterTypeDescriptionID7">STA NDARD OV</td><td>Vladislav Osorio MD</td><td>[facility]</td><td>07/19/2020</td><td>1:27PM</td><td>2:12PM</td><td><content ID="encounterDiagnosisID7-0">Working Diagnosis of Abdominal Pain</content>, <content ID="encounterDiagnosisID7-1">Coronary Artery Disease</content>, <content ID="encounterDiagnosisID7-2">Lichen Sclerosus Et Atrophicus</content></td>Outpatient Attender: Vladislav Osorio MD [facility] 07/19/2020 01:27:00 PM EST - 07/19/2020 02:12:00 PM ES T Lichen Sclerosus Et AtrophicusWorking Diagnosis of Abdominal PainLichen Sclerosus Et AtrophicusWorking Diagnosis of Abdominal PainLichen Sclerosus Et AtrophicusWorking Diagnosis of Abdominal PainLichen Sclerosus Et Atrophicus Working Diagnosis of Abdominal PainLichen Sclerosus Et AtrophicusWorking Diagnosis of Abdominal PainLichen Sclerosus Et AtrophicusWorking Diagnosis of Abdominal PainCoronary Artery DiseaseCoronary Artery DiseaseCoronary Artery DiseaseCoronary Artery DiseaseCoronary Artery DiseaseCoronary Artery Disease [facility]) Lichen Sclerosus Et Atrophicus Working Diagnosis of Abdominal Pain Lichen Sclerosus Et Atrophicus Working Diagnosis of Abdominal Pain Lichen Sclerosus Et Atrophicus Working Diagnosis of Abdominal Pain Lichen Sclerosus Et Atrophicus Working Diagnosis of Abdominal Pain Lichen Sclerosus Et Atrophicus Working Diagnosis of Abdominal Pain Lichen Sclerosus Et Atrophicus Working Diagnosis of Abdominal Pain Coronary Artery Disease Coronary Artery Disease Coronary Artery Disease Coronary Artery Disease Coronary Artery Disease Coronary Artery Disease Outpatient Attender: Vladislav CANe hathaway: Vladislav Osorio MDConsultant: Vladislav Osorio MD 07/19/2020 08:22:00 AM EST - 07/19/2020 08:32:0 0 AM [facility] Outpatient Attender: ZION ABDI NPConsultant: Vladislav lagunas MD 07/19/2020 07:33:00 AM EST - 07/19/2020 08:33:00 AM [facility] Patient discharged. Outpatient Attender: ZION ABDI NPConsultant: Vladislav lagunas MD 07/12/2020 02:24:00 PM EST - 07/12/2020 02:24:00 PM [facility] Outpatient Attender: ZION ABDI Family [facility] 07/12/2020 01 :30:00 PM EST [facility] ([facility]) Outpatient Attender: Vladislav Osorio MDConsultant: Vladislav pedroza MD 06/24/2020 08:20:00 AM EDT - 06/24/2020 09:20:00 AM T [facility] Outpatient Attender: Edvin Liu MDConsultant: Vladislav sabillon MD 06/21/2020 07:15:00 AM EDT - 06/21/2020 09:50:00 AM EDT [facility] Patient discharged. Outpatient Attender: Edvin Liu MDConsultant: Vladislav sabillon MD 06/17/2020 03:00:00 PM EDT - 06/17/2020 04:00:00 PM EDT [facility] Patient discharged. Outpatient<td ID="encounterTypeDescripti onID9">SURGICAL CLEARANCE</td><td>Vladislav Osorio MD</td><td>[facility],</td><td>06/16/2020</td><td>3:05PM</td><td>3:41PM</td><td><content ID="encounterDiagnosisID9-0">Nephrolithiasis</content>, <content ID="encounterDiagnosisID9-1">Hemorrhoids</content>, <content ID="encounterDiagnosisID9-2">Coronary Artery Disease</content></td> Attender: Vladislav Osorio MD Family [facility] 06/16/2020 03:05:00 PM EDT - 06/16/2020 03:41:00 PM EDT NephrolithiasisNephrolithiasisNephrolithiasisNephrolithiasisNephrolithiasisNephr olithiasisNephrolithiasisHemorrhoidsHemorrhoidsHemorrhoidsHemorrhoidsHemorrhoids HemorrhoidsHemorrhoidsCoronary Artery DiseaseCoronary Artery DiseaseCoronary Artery DiseaseCoronary Artery DiseaseCoronary Artery DiseaseCoronary Artery DiseaseCoronary Artery Disease [place] ([facility]) Nephrolithiasis Nephrolithiasis Nephrolithiasis Nephrolithiasis Nephrolithiasis Nephrolithiasis Nephrolithiasis Hemorrhoids Hemorrhoids Hemorrhoids Hemorrhoids Hemorrhoids Hemorrhoids Hemorrhoids Coronary Artery Disease Coronary Artery Disease Coronary Artery Disease Coronary Artery Disease Coronary Artery Disease Coronary Artery Disease Coronary Artery Disease Outpatient<td ID="encounterTypeDescripti onID8">CLINICAL USE ONLY</td><td>Vladislav Osorio MD</td><td>[facility]</td><td>07/19/2020</td><td>06/16/2020 8:11AM</td><td>06/16/2020 11:59PM</td><td></td> Attender: Vladislav Osorio MD [facility] 06/16/2020 08:11:00 AM EDT - 06/16/2020 11:59:00 PM EDT [place] ([facility]) Outpatient Attender: Edvin Liu MDConsultant: Vladislav sabillon MD 06/14/2020 08:40:11 AM EDT - 06/17/2020 01:03:00 PM EDT [facility] Patient discharged. Outpatient Attender: Vladislav Osorio MDConsultant: Vladislav pedroza MD 06/13/2020 09:01:00 AM EDT - 06/13/2020 10:01:00 AM EDT [facility] <td ID="mvcepognyRexiZevtsormipiNX89">WR ITE-IN (SAME DAY)</td><td>Vladislav Osorio MD</td><td>[facility]</td><td>06/09/2020</td><td>2:51PM</td><td>3:38PM</td><td><content ID="vymxpzodfAesocjfqfIC09-7">Gross Hematuria</content></td>Outpatient Attender: Vladislav Osorio MD [facility] 06/09/2020 02:51:00 PM EDT - 06/09/2020 03:38:00 PM EDT Gross HematuriaGross HematuriaGross Alan turiaGross HematuriaGross HematuriaGross HematuriaGross HematuriaGross Hematuria [facility]) Gross Hematuria Gross Hematuria Gross Hematuria Gross Hematuria Gross Hematuria Gross Hematuria Gross Hematuria [facility] Outpatient Attender: Edvin Liu MD Family Practice 06/09/2020 0 1:00:00 PM EDT [facility] ([facility]) Outpatient Attender: Edvin Liu MDConsultant: Vladislav sabillon MD 06/09/2020 12:53:00 PM EDT - 06/09/2020 12:53:00 PM EDT [facility] Immunizations Vaccine Date Status Description Data Source(s) COVID-19 10/17/2020 03:15:00 PM EST completed <td ID="Rzettloenmwkf-Hkkwuwyxafp-OB5">COVID-19 a</td><td ID="ImmunizationDose-1">2</td><td>10/17/2020</td><td ID="Aqmogkmycxann-MwlwsXqhl-MG2"></td><td></td><td ID="Utzlmzgumzyst-Atwhnl-IK7">Complete (Reported)</td><td>Patient</td><td ID="Fnlrtuhlhktve-Rhvsl-Qxzp-Comment-ID1"></td> [place] ([facility]) COVID-19 VACCINE a 10/17/2020 12:00:00 AM EST completed [employer] Vaccine Series Complete: YESThis Data wa s Submitted to [facility] Via [employer]. COVID-19 a 09/19/2020 03:15:00 PM EST completed <td ID="Fljusvrozhctw-Ztkucbkbnzx-IJ1">COVID-19 Moderna</td><td ID="ImmunizationDose-0">1</td><td>09/19/2020</td><td ID="Wjyehlbeftyku-YdhaoIfnc-BZ3"></td><td></td><td ID="Drbvnxxqnfzqe-Sjcsfv-FO4">Complete (Reported)</td><td>Patient</td><td ID="Cefmzbnykftkp-Qscem-Vnxe-Comment-ID0"></td> [place] ([facility]) COVID-19 VACCINE Moderna 09/19/2020 12:00:00 AM EST completed [employer] Vaccine Series Complete: NOThis Data was Submitted to [facility] Via [employer]. Medications Medication Brand Name Start Date Product Form Dose Route Admi nistrative Instructions Pharmacy Instructions Status Indications Reaction Description Data Source(s) 10 mg 07/24/2021 12:00:00 AM EST tablet 20 TAKE FOUR TABLETS BY MOUTH EVERY DAY FOR 2 DAYS, TAKE THREE TABLETS BY MOUTH EVERY DAY FOR 2 DAYS, TAKE TWO TABLETS BY MOUTH EVERY DAY FOR 2 DAYS, THEN TAKE ONE TABLET BY MOUTH EVERY DAY FOR 2 DAYS TAKE FOUR TABLETS BY MOUTH EVERY DAY FOR 2 DAYS, TAKE THREE TABLETS BY MOUTH EVERY DAY FOR 2 DAYS, TAKE TWO TABLETS BY MOUTH EVERY DAY FOR 2 DAYS, THEN TAKE ONE TABLET BY MOUTH EVERY DAY FOR 2 DAYS SOLD: 07/24/2021 [facility] Metronidazole 500 MG Oral Tablet METRONIDAZOLE 07/24/2021 12:0 0:00 AM EST tablet 10 TAKE ONE TABLET BY MOUTH TWICE A DAY FOR 5 DAYS TAKE ONE TABLET BY MOUTH TWICE A DAY FOR 5 DAYS SOLD: 07/24/2021 [facility] 500 mg 07/24/2021 12:00:00 AM EST tablet 10 TAKE ONE TABLET BY MOUTH TWICE A DAY FOR 5 DAYS TAKE ONE TABLET BY MOUTH TWICE A DAY FOR 5 DAYS SOLD: 2020 [facility] 20 mg 07/24/2021 12:00:00 AM EST tablet 30 TAKE ONE TABLET BY MOUTH EVERY MORNING TAKE ONE TABLET BY MOUTH EVERY MORNING SOLD: 07/24/2021 [facility] 100,000 unit/mL 07/24/2021 12:00:00 AM EST suspension 80 TAKE 5 ML BY MOUTH FOUR TIMES A DAY FOR 4 DAYS TAKE 5 ML BY MOUTH FOUR TIMES A DAY FOR 4 DAYS SOLD: 07/24/2021 [facility] 50 mg 07/24/2021 12:00:00 AM EST tablet extended release 24 hr 30 TAKE ONE TABLET BY MOUTH EVERY DAY TAKE ONE TABLET BY MOUTH EVERY DAY SOLD: 07/24/2021 [facility] 50 mg 07/07/2021 12:00:00 AM EST tablet 30 TAKE 1 TABLET BY MOUTH EVERY 8 HOURS THREE TIMES A DAY NEEDED FOR PAIN TAKE 1 TABLET BY MOUTH EVERY 8 HOURS THREE TIMES A DAY NEEDED FOR PAIN SOLD: 07/12/2021 [facility] methotrexate (PF) 12 mg in sodium chlori de (PF) (NS) 0.9 % 3 mL INTRATHECAL chemo injection 07/05/2021 02:00:00 PM EST 12 mg Intrathecal completed [facility] Medication administered onsite dextrose 5 % and sodium chloride 0.45 % infusion [id number] 07/05/2021 12:00:00 PM EST 30 mL/h Intravenous active at 30 mL/hr, 30 mL/hr, Intravenous, Continuous, Starting on Sat07/05/21 at 1200, Admission - Sign & Hold [facility] Medication administered onsite Acetaminophen 325 MG Oral Tablet acetaminophen (TYLENO L) 325 MG tablet 650 mg acetaminophen (TYLENOL) 325 MG tablet 650 mg 07/05/2021 11:30:20 AM EST 650 mg Oral active 650 mg, Or al, Every 4 hours PRN, mild pain (1-3), Starting on Sat07/05/21 at 1130, Admission - Sign & Hold
"Maximum dose of acetaminophen is 4,000 mg from all sources in 24 hours."
[facility] Medication administered onsite 20 mg 06/29/2021 12:00:00 AM EDT tablet 90 TAKE 1 TABLET BY MOUTH AT BEDTIME TAKE 1 TABLET BY MOUTH AT BEDTIME SOLD: 06/30/2021 [facility] Fenofibrate 160 MG Oral Tablet FENOFIBRATE 06/29/2021 12:00:00 AM EDT tablet 90 TAKE 1 TABLET ONCE DAILY BY MOUTH TAKE 1 TABLET ONCE DAILY B Y MOUTH SOLD: 06/30/2021 [facility] Famotidine 20 MG Oral Tablet FAMOTIDINE 06/26/2021 12:00:00 AM EDT tab let 30 TAKE ONE TABLET BY MOUTH EVERY DAY AT BEDTIME TAKE ONE TABLET BY MOUTH EVERY DAY AT BEDTIME SOLD: 06/28/2021 [facility] 5 mg 06/12/2021 12:00:00 AM EDT tablet 30 TAKE ONE TABLET BY MOUTH EVERY 6 HOURS NEEDED FOR PAIN MAXIMUM DAILY DOSE = 4 TAKE ONE TABLET BY MOUTH EVERY 6 HOURS NEEDED FOR PAIN MAXIMUM DAILY DOSE = 4 SOLD: 06/12/2021 [facility] Diphenhydramine Hydrochloride 25 MG Oral Capsule diphenhydrAMINE (BENADRYL) capsule 25 mg diphenhydrAMINE (BENADRYL) capsule 25 mg 06/06/2021 09 :00:00 AM EDT 25 mg Oral completed Diffuse la rge B-cell lymphoma, unspecified body region 25 mg, Oral, Once, On Sat06/06/21 at 09 00, For 1 dose [facility] Diffuse large B-cell lymphoma, unspecifi ed body region Medication administered onsite 3 ML heparin sodium, porcine 100 UNT/ML Prefilled Syringe heparin 100 UNIT/ML injection 500 Units heparin 100 UNIT/ML injection 500 Units 06/06/2021 09: 00:00 AM EDT 5 mL completed Diffuse la rge B-cell lymphoma, unspecified body region 500 Units (5 mL), Intracathe ter, Once, On Sat06/06/21 at 0900, For 1 dose [facility] Diffuse large B-cell lymphoma, unspecifi ed body region Medication administered onsite 4 mg 06/06/2021 12:00:00 AM EDT tablets,dose pack 21 TAKE BY MOUTH DIRECTED - TAKE WITH FOOD TAKE BY MOUTH DIRECTED - TAKE WITH FOOD SOLD: 06/06/2021 [facility] 750 mg 05/28/2021 12:00:00 AM EDT tablet 7 TAKE ONE TABLET BY MOUTH EVERY DAY TAKE ONE TABLET BY MOUTH EVERY DAY SOLD: 05/30/2021 [facility] Metronidazole 500 MG Oral Tablet METRONIDAZOLE 05/28/2021 12:0 0:00 AM EDT tablet 21 TAKE ONE TABLET BY MOUTH THREE T IMES A DAY TAKE ONE TABLET BY MOUTH THREE TIMES A DAY SOLD: 05/30/2021 [facility] Acetaminophen 325 MG Oral Tablet acetaminophen (TYLENO L) 325 MG tablet 650 mg acetaminophen (TYLENOL) 325 MG tablet 650 mg 05/24/2021 11:40:25 AM EDT 650 mg Oral active 650 mg, Or al, Every 4 hours PRN, mild pain (1-3), Starting on Sat05/24/21 at 1140, Admission - Sign & Hold
"Maximum dose of acetaminophen is 4,000 mg from all sources in 24 hours."
[facility] Medication administered onsite Acyclovir 400 MG Oral Tablet ACYCLOVIR 05/12/2021 12:00:00 AM EDT tabl et 60 TAKE ONE TABLET BY MOUTH TWICE A DAY TAKE ONE TABLET BY MOUTH TWICE A DAY SOLD: 05/13/2021 [facility] 20 mEq 05/12/2021 12:00:00 AM EDT tablet extended release 5 TAKE ONE TABLET BY MOUTH EVERY DAY TAKE ONE TABLET BY MOUTH EVERY DAY SOLD: 05/13/2021 [facility] Acyclovir 400 MG Oral Tablet ACYCLOVIR 05/12/2021 12:00:00 AM EDT tabl et 60 TAKE ONE TABLET BY MOUTH TWICE A DAY TAKE ONE TABLET BY MOUTH TWICE A DAY SOLD: 06/10/2021 [facility] Acyclovir 400 MG Oral Tablet ACYCLOVIR 05/12/2021 12:00:00 AM EDT tabl et 60 TAKE ONE TABLET BY MOUTH TWICE A DAY TAKE ONE TABLET BY MOUTH TWICE A DAY SOLD: 07/12/2021 [facility] 750 mg 05/05/2021 12:00:00 AM EDT tablet 7 TAKE ONE TABLET BY MOUTH EVERY DAY TAKE ONE TABLET BY MOUTH EVERY DAY SOLD: 05/05/2021 [facility] Famotidine 20 MG Oral Tablet FAMOTIDINE 05/05/2021 12:00:00 AM EDT tab let 30 TAKE ONE TABLET BY MOUTH EVERY DAY AT BEDTIME TAKE ONE TABLET BY MOUTH EVERY DAY AT BEDTIME SOLD: 05/05/2021 [facility] Famotidine 20 MG Oral Tablet FAMOTIDINE 05/05/2021 12:00:00 AM EDT tab let 30 TAKE ONE TABLET BY MOUTH EVERY DAY AT BEDTIME TAKE ONE TABLET BY MOUTH EVERY DAY AT BEDTIME SOLD: 06/03/2021 [facility] Metronidazole 500 MG Oral Tablet METRONIDAZOLE 05/05/2021 12:0 0:00 AM EDT tablet 21 TAKE ONE TABLET BY MOUTH THREE T IMES A DAY TAKE ONE TABLET BY MOUTH THREE TIMES A DAY SOLD: 05/05/2021 [facility] iopamidol (ISOVUE-M) 41 % intrathecal injection 15 mL [id number] 05/04/2021 01:26:24 PM EDT 15 mL Intrathecal completed 15 mL, Intrathecal, Once in imaging, contrast, Starting on Kimberly 05/04/21 at 1326, For 1 dose [facility] Medication administered onsite methotrexate (PF) 12 mg in sodium chlori de (PF) (NS) 0.9 % 3mL INTRATHECAL chemo injection 05/04/2021 12:00:00 PM EDT 12 mg Intrathecal c ompleted [facility] Medication administered onsite Acetaminophen 325 MG Oral Tablet acetaminophen (TYLENO L) 325 MG tablet 650 mg acetaminophen (TYLENOL) 325 MG tablet 650 mg 05/04/2021 10:08:56 AM EDT 650 mg Oral active 650 mg, Or al, Every 4 hours PRN, mild pain (1-3), Starting on Kimberly 05/04/21 at 1008, Admission - Sign & Hold
"Maximum dose of acetaminophen is 4,000 mg from all sources in 24 hours."
[facility] Medication administered onsite 25 mg 05/03/2021 12:00:00 AM EDT tablet 90 TAKE ONE-HALF TABLET BY MOUTH TWICE A DAY TAKE ONE-HALF TABLET BY MOUTH TWICE A DAY SOLD: 05/05/2021 [facility] 1,250 mcg (50,000 unit) 04/27/2021 12:00:00 AM EDT capsule 8 TAKE BY MOUTH DIRECTED TAKE BY MOUTH DIRECTED SOLD: 04/28/2021 [facility] Ondansetron 4 MG Disintegrating Oral Tablet ONDANSETRON 04/27/2021 12:00:00 AM EDT tablet,disintegrating 20 DISSOLVE O NE TABLET ON TONGUE EVERY 6 HOURS NEEDED DISSOLVE ONE TABLET ON TONGUE EVERY 6 HOURS NEEDED SOLD: 10/2020 [facility] 20 mg 04/27/2021 12:00:00 AM EDT capsule,delayed release (DR/EC) 90 TAKE ONE CAPSULE BY MOUTH EVERY MORNING TAKE ONE CAPSULE BY MOUTH EVERY MORNING SOLD: 04/28/2021 [facility] 300 mg 04/12/2021 12:00:00 AM EDT capsule 12 TAKE ONE CAPSULE BY MOUTH TWICE A DAY TAKE ONE CAPSULE BY MOUTH TWICE A DAY SOLD: 04/12/2021 [facility] methotrexate (PF) 12 mg in sodium chlori de (PF) (NS) 0.9 % 3 mL INTRATHECAL chemo injection 04/07/2021 11:00:00 AM EDT 12 mg Intrathecal completed [facility] Medication administered onsite dextrose 5 % and sodium chloride 0.45 % infusion [id number] 04/07/2021 10:00:00 AM EDT 30 mL/h Intravenous active at 30 mL/hr, 30 mL/hr, Intravenous, Continuous, Starting on Sat04/07/21 at 1000, Admission - Sign & Hold [facility] Medication administered onsite cyclophosphamide (CYTOXAN) 954 mg in sod ium chloride (NS) 0.9 % 250 mL chemo infusion 04/01/2021 12:00:00 PM EDT 600 mg/m2 Intravenous completed 954 mg (600 mg/m2 1.59 m2), Intravenous, Administer over 1 Hours, Once, On Sat04/01/21 at 1200, For 1 dose [facility] Medication administered onsite predniSONE (DELTASONE) tablet 95 mg 03/31/2021 05:00:00 PM EDT 95 mg Oral completed 95 mg, Oral, 2 t imes daily, First dose (after last modification) on Sat03/31/21 at 1700, For 3 doses [facility] Medication administered onsite Ondansetron 4 MG Disintegrating Oral Tab let ondansetron (ZOFRAN-ODT) disintegrating tablet 4 mg ondansetron (ZOFRAN-ODT) disintegrating tablet 4 mg 03/31/2021 04:12:14 PM EDT 4 mg Oral active 4 mg, Oral, Every 6 hours PRN, nausea, Starting on Sat03/31/21 at 1612 [facility] Medication administered onsite POLYETHYLENE GLYCOL 3350 142 MG/ML Oral Solution polyethylene glycol (GLYCOLAX) packet 17 g polyethylene glycol (GLYCOLAX) packet 17 g 03/31/2021 01:00:00 PM EDT 17 g Oral completed 17 g, Oral, Once, On Sat03/31/21 at 1300, For 1 dose
hold for loose stools
[facility] Medication administered onsite Docusate Sodium 50 MG / sennosides, ASSISTED 8.6 MG Oral Tablet senna-docusate (PERICOLACE) 8.6-50 MG senna-docusate (PERICOLACE) 8.6-50 MG 03/31/2021 12:00 :00 AM EDT 2 {tbl} Oral active Take 2 tablets b y mouth nightly [facility] predniSONE (DELTASONE) tablet 95 mg 03/28/2021 09:00:00 PM EDT 95 mg Oral aborted 95 mg, Oral, 2 t imes daily, First dose (after last modification) on Sat03/28/21 at 2100, For 9 doses [facility] Medication administered onsite fosaprepitant (EMEND) 150 mg in sodium chloride (NS) 0.9 % 1 45 mL IVPB 03/28/2021 12:00:00 PM EDT 150 mg Intravenous completed 150 mg, Intravenous, Administer over 30 Minutes, Once, On Sat03/28/21 at 1200, For 1 dose [facility] Medication administered onsite granisetron (KYTRIL) injection 1 mg [id number] 03/28/2021 12:00:0 0 PM EDT 1 mg Intravenous completed 1 mg, In travenous, Daily, First dose on Sat03/28/21 at 1200, For 5 doses
Administer prior to chemotherapy
[facility] Medication administered onsite DOXOrubicin (ADRIAMYCIN) 16 mg, Etoposid e (VEPESID) 80 mg, vinCRIStine (ONCOVIN) 0.64 mg in sodium chloride (NS) 0.9 % 500 mL chemo infusion 03/28/2021 11:00:00 AM EDT Intravenous completed [facility] Medication administered onsite alteplase syringe 1 mg 56 03/28/2021 09:00:00 AM EDT 1 mg completed 1 mg, Intracatheter, Once, On Sat03/28/21 at 0900, For 1 dose
Pharmacy call [facility] access team for pickup ([phone]; [phone] if in tower). Ready at VAT notified
[facility] Medication administered onsite pantoprazole 40 MG Delayed Release Oral Tablet pantoprazole (PROTONIX) EC tablet 40 mg pantoprazole (PROTONIX) EC tablet 40 mg 03/28/2021 09:00:00 AM E DT 40 mg Oral active Gastroesophageal Reflux Diseas e 40 mg, Oral, Daily, Indications: Gastroesophageal Reflux Disease, First dose on Sat03/28/21 at 0900 [facility] Gastroesophageal Reflux Disease Medication administered onsite Allopurinol 300 MG Oral Tablet allopurinol (ZYLOPRIM) tablet 300 mg allopurinol (ZYLOPRIM) tablet 300 mg 03/28/2021 09:00:00 AM EDT 300 mg Oral active 300 mg, Oral, Daily, First dose on Sat03/28/21 at 0900 [facility] Medication administered onsite Magnesium Hydroxide 80 MG/ML Oral Suspen lashonda magnesium hydroxide (MILK OF MAGNESIA) 400 MG/5ML suspension 30 mL magnesium hydroxide (MILK OF MAGNESIA) 4 00 MG/5ML suspension 30 mL 03/28/2021 12:00:00 AM EDT 30 mL Oral active 30 mL, Oral, Daily PRN, constipation, Starting on Sat03/28/21 at 0000
If senna-docusate is not effective
[facility] Medication administered onsite Docusate Sodium 50 MG / sennosides, ASSISTED 8.6 MG Oral Tablet senna-docusate (PERICOLACE) 8.6-50 MG 2 tablet senna-docusate (PERICOLACE) 8.6-50 MG 2 tablet 03/27/2021 09:00:00 PM EDT 2 {tbl} Oral active 2 tablet, Oral, Nightly, First dose on Sat03/27/21 at 2100
hold for loose stools
[facility] Medication administered onsite pregabalin (LYRICA) capsule 75 mg 03/27/2021 09:00:00 PM EDT 75 mg Oral active 75 mg, Oral, 2 times daily, First dose on Sat03/27/21 at 2100, For 7 days [facility] Medication administered onsite Simvastatin 20 MG Oral Tablet simvastatin (ZOCOR) tabl et 20 mg simvastatin (ZOCOR) tablet 20 mg 03/27/2021 09:00:00 PM EDT 20 mg Oral active 20 mg, Oral, Nightly, First dose on Sat03/27/21 at 2100 [facility] Medication administered onsite Metoprolol Tartrate 25 MG Oral Tablet me toprolol tartrate (LOPRESSOR) tablet 12.5 mg metoprolol tartrate (LOPRESSOR) tablet 12.5 mg 09:00:00 PM EDT 12.5 mg Oral active 12.5 mg, Oral, 2 times daily, First dose on Sat03/27/21 at 2100
Hold for SBP < 105 or HR < 55
[facility] Medication administered onsite Mirtazapine 30 MG Oral Tablet mirtazapine (REMERON) ta blet 30 mg mirtazapine (REMERON) tablet 30 mg 03/27/2021 09:00:00 PM EDT 30 mg Oral active 30 mg, Oral, Nightly, First dose on Sat03/27/21 at 2100 [facility] Medication administered onsite predniSONE (DELTASONE) tablet 95 mg 03/27/2021 03:00:00 PM EDT 95 mg Oral aborted 95 mg, Oral, 2 t imes daily, First dose on Sat03/27/21 at 1500, For 10 doses [facility] Medication administered onsite Docusate Sodium 100 MG Oral Capsule docusate sodium (C OLACE) capsule 100 mg docusate sodium (COLACE) capsule 100 mg 03/27/2021 02:11:20 PM EDT 100 mg Oral active 100 mg, Oral, 2 times daily PRN, constipation, Starting on Sat03/27/21 at 1411
hold for loose stools
[facility] Medication administered onsite riTUXimab-pvvr (RUXIENCE) 600 mg in sodium chloride (NS) 0.9 % chemo infusion 03/27/2021 02:00:00 PM EDT 600 mg Intravenous completed 600 mg, Intravenous, Once, On Sat03/27/21 at 1400, For 1 dose
Initiate Ruxience at 25ml/hr for 30 min, If no infusion reaction occurs, increase rate of infusion:&a mp;nbsp;To 50 ml/hr for 30 minutes, Then 100 ml/hr for 30 minutes, Then 150 ml/hr for 30 minutes, Then 200 ml/hr until infusion completed If infusion related reaction occurs stop infusion for 30 minutes, contact prescriber and restart at half of the rate that the reaction occurred at.
[facility] Medication administered onsite normal saline flush 0.9 % injection 10 mL [id number] 03/27/2021 02:00:00 PM EDT 10 mL Intravenous active 10 m L, Intravenous, Every 8 hours (scheduled), First dose on Sat03/27/21 at 1400
Flush with 10 mL NS prior and post medication administration. Flush with 10 mL NS prior to blood specimen collection and flush with 20 mL to clear solution/drug post blood specimen collection
[facility] Medication administered onsite Acetaminophen 325 MG Oral Tablet acetaminophen (TYLENO L) 325 MG tablet 650 mg acetaminophen (TYLENOL) 325 MG tablet 650 mg 03/27/2021 02:00:00 PM EDT 650 mg Oral completed 650 mg, Or al, Once, On Sat03/27/21 at 1400, For 1 dose
Give 30 minutes before rituximab-pvvr
[facility] Medication administered onsite diphenhydrAMINE (BENADRYL) injection 50 mg [id number] 03/27/2021 02:00:00 PM EDT 50 mg Intravenous completed 50 mg, Intravenous, Once, On Sat03/27/21 at 1400, For 1 dose
Give 30 minutes before rituximab-pvvr
[facility] Medication administered onsite ondansetron (ZOFRAN) injection 4 mg [id number] 03/27/2021 12:04:1 8 PM EDT 4 mg Intravenous active 4 mg, In travenous, Every 4 hours PRN, nausea, vomiting, Starting on Sat03/27/21 at 1204 [facility] Medication administered onsite 2 ML Metoclopramide 5 MG/ML Prefilled Sy ringe metoclopramide (REGLAN) injection 10 mg metoclopramide (REGLAN) injection 10 mg 03/27/2021 12:04:18 PM E DT 10 mg Intravenous active 10 mg, I ntravenous, Every 6 hours PRN, for Nausea/Vomiting not relieved by zofran, Starting on Sat03/27/21 at 1204 [facility] Medication administered onsite Acetaminophen 325 MG Oral Tablet acetaminophen (TYLENO L) 325 MG tablet 650 mg acetaminophen (TYLENOL) 325 MG tablet 650 mg 03/27/2021 12:04:08 PM EDT 650 mg Oral active 650 mg, Or al, Every 4 hours PRN, mild pain (1-3), headaches, Starting on Sat03/27/21 at 1204
"Maximum dose of acetaminophen is 4,000 mg from all sources in 24 hours."
[facility] Medication administered onsite 800-160 mg 03/22/2021 12:00:00 AM EDT tablet 30 TAKE ONE TABLET BY MOUTH TWICE A DAY BY MOUTH ON MON, WED, AND FRI. TAKE ONE TABLET BY MOUTH TWICE A DAY BY MOUTH ON MON, WED, AND FRI. SOLD: 05/05/2021 [employer] [facility] Fenofibrate 160 MG Oral Tablet FENOFIBRATE 03/22/2021 12:00:00 AM EDT tablet 30 TAKE ONE TABLET BY MOUTH EVERY DAY IN PLACE OF [place] TAKE ONE TABLET BY MOUTH EVERY DAY IN PLACE OF [place] SOLD: 03/23/2021 [facility] 800-160 mg 03/22/2021 12:00:00 AM EDT tablet 30 TAKE ONE TABLET BY MOUTH TWICE A DAY BY MOUTH ON MON, WED, AND FRI. TAKE ONE TABLET BY MOUTH TWICE A DAY BY MOUTH ON MON, WED, AND FRI. SOLD: 03/22/2021 [facility] 800-160 mg 03/22/2021 12:00:00 AM EDT tablet 30 TAKE ONE TABLET BY MOUTH TWICE A DAY BY MOUTH ON MON, WED, AND FRI. TAKE ONE TABLET BY MOUTH TWICE A DAY BY MOUTH ON MON, WED, AND FRI. SOLD: 06/10/2021 [employer] [employer] [facility] Fenofibrate 160 MG Oral Tablet FENOFIBRATE 03/22/2021 12:00:00 AM EDT tablet 30 TAKE ONE TABLET BY MOUTH EVERY DAY IN PLACE OF [place] TAKE ONE TABLET BY MOUTH EVERY DAY IN PLACE OF [place] SOLD: 05/26/2021 [facility] Fenofibrate 160 MG Oral Tablet FENOFIBRATE 03/22/2021 12:00:00 AM EDT tablet 30 TAKE ONE TABLET BY MOUTH EVERY DAY IN PLACE OF [place] TAKE ONE TABLET BY MOUTH EVERY DAY IN PLACE OF [place] SOLD: 04/23/2021 [facility] Acyclovir 400 MG Oral Tablet ACYCLOVIR 03/21/2021 12:00:00 AM EDT tabl et 60 TAKE ONE TABLET BY MOUTH TWICE A DAY TAKE ONE TABLET BY MOUTH TWICE A DAY SOLD: 03/22/2021 [facility] Ergocalciferol 44459 UNT Oral Capsule [D risdol] Drisdol 1.25 MG (59375 UT) Oral Capsule Drisdol 1.25 MG (27082 UT) Oral Capsule 03/20/2021 12:00:00 AM EDT active ergocalciferol 1.25 MG Oral Capsule [Drisdol] [facility] ([facility]) Aspirin 81 MG Delayed Release Oral Table t Aspirin 81 MG Oral Tablet Delayed Release Aspirin 81 MG Oral Tablet Delayed Release 03/20/2021 12:00:00 AM EDT active aspirin 81 MG Delayed Re lease Oral Tablet [facility] ([facility]) [place]-3 Acid Ethyl Esters (ASSISTED) 1000 MG Oral Capsule [Lovaza] Lovaza 1 GM Oral Capsule Lovaza 1 GM Oral Capsule 03/20/2021 12:00:00 AM EDT 2 active omega-3 acid ethyl esters (ASSISTED) 1000 MG Oral Capsule [ Lovaza] [facility] ([facility]) Omeprazole 20 MG Delayed Release Oral Ca psule Omeprazole 20 MG Oral Capsule Delayed Release Omeprazole 20 MG Oral Capsule Delayed Release 03/20/20 12:00:00 AM EDT active omeprazole 20 MG Delayed Release Oral Capsule [facility]) Metoprolol Tartrate 25 MG Oral Tablet Metoprolol Tartrate 25 MG Oral Tablet 03/20/2021 12:00:00 AM EDT active metoprolol tartrate 25 MG Oral Tablet [facility]) Simvastatin 20 MG Oral Tablet Simvastatin 20 MG Oral Tablet 03/20/2021 12:00:00 AM EDT active simvastatin 20 MG Oral Tablet [facility] ([facility]) Allopurinol 300 MG Oral Tablet Allopurinol 300 MG Oral Table t 03/20/2021 12:00:00 AM EDT 1 active allopuri nol 300 MG Oral Tablet [facility]) Prochlorperazine 10 MG Oral Tablet Prochlorperazine Ma leate 10 MG Oral Tablet Prochlorperazine Maleate 10 MG Oral Tablet 03/20/2021 12:00:00 AM EDT active prochlorperazine 10 MG Oral Tabl et [facility] ([facility]) Ondansetron 4 MG Disintegrating Oral Tab let Ondansetron 4 MG Oral Tablet Disintegrating Ondansetron 4 MG Oral Tablet Disintegrating 03/20/2021 12:00:00 AM EDT active ondansetron 4 MG Disintegrating Oral Tablet [facility]) 72 HR Fentanyl 0.012 MG/HR Transdermal P atch fentaNYL 12 MCG/HR Transdermal Patch 72 Hour fentaNYL 12 MCG/HR Transdermal Patch 72 Hour 12:00:00 AM EDT active 72 HR fentanyl 0. 012 MG/HR Transdermal System [facility]) Hydromorphone Hydrochloride 2 MG Oral Tablet HYDROmorp rupinder HCl 2 MG Oral Tablet HYDROmorphone HCl 2 MG Oral Tablet 03/20/2021 12:00:00 AM EDT active hydromorphone hydrochloride 2 MG Oral Ta blet [facility]) Lidocaine Hydrochloride 20 MG/ML Mucous Membrane Topical Solution Lidocaine Viscous HCl 2% Mouth/Throat Solution Lidocaine Viscous HCl 2% Mouth/Throat Solution 03/20/2021 12:00:00 AM EDT active lidocaine hydrochloride 20 MG/ML Mucous Membrane Topical Solution [facility]) pregabalin 75 MG Oral Capsule [Lyrica] Lyrica 75 MG Or al Capsule Lyrica 75 MG Oral Capsule 03/20/2021 12:00:00 AM EDT activ e pregabalin 75 MG Oral Capsule [Lyrica] [facility]) Mirtazapine 30 MG Oral Tablet Mirtazapine 30 MG Oral Tablet 03/20/2021 12:00:00 AM EDT 1 active mirtazapine 30 MG Oral Tablet [facility]) Nystatin 273750 UNT/ML Oral Suspension N ystatin 480538 UNIT/ML Mouth/Throat Suspension Nystatin 524138 UNIT/ML Mouth/Throat Suspension 2020 12:00:00 AM EDT active nystatin [id number] U NT/ML Oral Suspension [facility] ([facility]) Acetaminophen 325 MG Oral Tablet Acetaminophen 325 MG Oral T ablet 03/20/2021 12:00:00 AM EDT active acetamin ophen 325 MG Oral Tablet [facility] ([facility]) Docusate Sodium 100 MG Oral Capsule [Colace] Colace 10 0 MG Oral Capsule Colace 100 MG Oral Capsule 03/20/2021 12:00:00 AM EDT 1 active docusate sodium 100 MG Oral Capsule [Colace] [facility]) 100,000 unit/mL 03/20/2021 12:00:00 AM EDT suspension 280 SWISH AND SWALLOW 4ML TO 6ML FOUR TIMES DAILY FOR 7 TO 14 DAYS SWISH AND SWALLOW 4ML TO 6ML FOUR TIMES DAILY FOR 7 TO 14 DAYS SOLD: 03/21/2021 [facility] 20 mg 03/20/2021 12:00:00 AM EDT tablet 90 TAKE ONE TABLET BY MOUTH AT BEDTIME TAKE ONE TABLET BY MOUTH AT BEDTIME SOLD: 03/21/2021 [facility] 12 mcg/hr 03/17/2021 12:00:00 AM EDT patch [address] 1 PATCH TOPICALLY ON THE SKIN EVERY 3RD DAY - MAXIMUM DAILY DOSE = 1 PATCH EVERY [address] 1 PATCH TOPICALLY ON THE SKIN EVERY 3RD DAY - MAXIMUM DAILY DOSE = 1 PATCH EVERY 3 DAYS SOLD: 03/18/2021 [facility] 72 HR Fentanyl 0.012 MG/HR Transdermal Patch fentaNYL (DURAGESIC) 12 MCG/HR fentaNYL (DURAGESIC) 12 MCG/HR 03/17/2021 12:00:00 AM EDT 1 {pat ch} Transdermal aborted Place 1 patch on the skin every third day Max Daily Amount: 1 patch [facility] Lidocaine Hydrochloride 20 MG/ML Mucous Membrane Topical Solution lidocaine Viscous HCl (XYLOCAINE) 2 % mouth solution 5 mL lidocaine Viscous HCl (XYLOCAINE) 2 % mouth solution 5 mL 03/15/2021 11:52:59 AM EDT 5 mL Mouth/Throat active 5 mL, Mouth/ Throat, As needed, mild pain (1-3), oral pain, Starting on Sat03/15/21 at 1152
May apply to lips or swish and spit
[facility] [facility] on[facility] 2 % 03/15/2021 12:00:00 AM EDT solution 100 TAKE 5ML BY MOUTH NEEDED TAKE 5ML BY MOUTH NEEDED SOLD: 03/15/2021 [facility] 100,000 unit/mL 03/15/2021 12:00:00 AM EDT suspension 60 TAKE 5ML BY MOUTH 4 TIMES DAILY FOR 5 DAYS TAKE 5ML BY MOUTH 4 TIMES DAILY FOR 5 DAYS SOLD: 03/15/2021 [facility] 75 mg 03/15/2021 12:00:00 AM EDT capsule 60 TAKE ONE CAPSULE BY MOUTH TWICE A DAY - MAXIMUM DAILY DOSE = 2 TAKE ONE CAPSULE BY MOUTH TWICE A DAY - MAXIMUM DAILY DOSE = 2 SOLD: 05/22/2021 [facility] Acyclovir 400 MG Oral Tablet ACYCLOVIR 03/15/2021 12:00:00 AM EDT tabl et 10 TAKE ONE TABLET BY MOUTH TWICE A DAY FOR 5 DAYS TAKE ONE TABLET BY MOUTH TWICE A DAY FOR 5 DAYS SOLD: 03/15/2021 [facility] 75 mg 03/15/2021 12:00:00 AM EDT capsule 60 TAKE ONE CAPSULE BY MOUTH TWICE A DAY - MAXIMUM DAILY DOSE = 2 TAKE ONE CAPSULE BY MOUTH TWICE A DAY - MAXIMUM DAILY DOSE = 2 SOLD: 04/21/2021 [facility] 75 mg 03/15/2021 12:00:00 AM EDT capsule 60 TAKE ONE CAPSULE BY MOUTH TWICE A DAY - MAXIMUM DAILY DOSE = 2 TAKE ONE CAPSULE BY MOUTH TWICE A DAY - MAXIMUM DAILY DOSE = 2 SOLD: 03/15/2021 [facility] 75 mg 03/15/2021 12:00:00 AM EDT capsule 60 TAKE ONE CAPSULE BY MOUTH TWICE A DAY - MAXIMUM DAILY DOSE = 2 TAKE ONE CAPSULE BY MOUTH TWICE A DAY - MAXIMUM DAILY DOSE = 2 SOLD: 06/20/2021 [facility] Mirtazapine 30 MG Oral Tablet mirtazapine (REMERON) 30 MG tablet mirtazapine (REMERON) 30 MG tablet 03/15/2021 12:00:00 AM EDT 30 mg Oral aborted Take 1 tablet (30 mg total) by mouth nightly [facility] Nystatin 868061 UNT/ML Oral Suspension n ystatin (MYCOSTATIN) 134076 UNIT/ML suspension nystatin (MYCOSTATIN) 022184 UNIT/ML suspension 2020 12:00:00 AM EDT 090627 U Oral active Take 5 mL (500,000 Units total) by mouth 4 (four) times a day for 5 days [facility] pregabalin 75 MG Oral Capsule pregabalin (LYRICA) 75 M G capsule pregabalin (LYRICA) 75 MG capsule 03/15/2021 12:00:00 AM EDT 75 mg Oral active Take 1 capsule (75 mg total) by mouth 2 (two) times a day Max Daily Amount: 150 mg [facility] Acetaminophen 325 MG Oral Tablet acetaminophen (TYLENO L) 325 MG tablet acetaminophen (TYLENOL) 325 MG tablet 03/15/2021 12:00:00 AM EDT 65 0 mg Oral active Take 2 tablets (650 mg total) by mouth every 4 (four) hours as needed (mild pain) [facility] Acyclovir 400 MG Oral Tablet acyclovir (ZOVIRAX) 400 M G tablet acyclovir (ZOVIRAX) 400 MG tablet 03/15/2021 12:00:00 AM EDT 400 mg Oral active Take 1 tablet (400 mg total) by mouth 2 (two) times a day for 5 days [facility] Lidocaine Hydrochloride 20 MG/ML Mucous Membrane Topical Solution lidocaine Viscous HCl (XYLOCAINE) 2 % solution lidocaine Viscous HCl (XYLOCAINE) 2 % solution 03/15/2021 12:00:00 AM EDT 5 mL Oral aborted Take 5 mL by mouth as needed [facility] 30 mg 03/15/2021 12:00:00 AM EDT tablet 30 TAKE ONE TABLET BY MOUTH AT BEDTIME TAKE ONE TABLET BY MOUTH AT BEDTIME SOLD: 03/15/2021 [facility] Loperamide Hydrochloride 2 MG Oral Capsule loperamide (IMODIUM) capsule 2 mg loperamide (IMODIUM) capsule 2 mg 03/14/2021 10:54:59 AM EDT 2 mg Oral active 2 mg, Oral, 6 times daily PRN, diarrhea, Starting on Sat03/14/21 at 1054
Give after LBM. Max daily dose = 16mg (8 caps)
[facility] Medication administered onsite potassium chloride SA (K-DUR,KLOR-CON) CR tablet 40 mEq [id number] 03/14/2021 10:00:00 AM EDT 40 meq Oral active 40 mEq, Oral, Daily, First dose on Sat03/14/21 at 1000 [facility] Medication administered onsite Nystatin 056462 UNT/ML Oral Suspension n ystatin (MYCOSTATIN) 587820 UNIT/ML oral suspension 500,000 Units nystatin (MYCOSTATIN) 383589 UNIT/ML ora l suspension 500,000 Units 03/13/2021 10:00:00 PM EDT 858328 U Oral ac tive 500,000 Units, Oral, 4 times daily, First dose on Sat03/13/21 at 2200, For 3 days
Swish and spit
[facility] Medication administered onsite Acyclovir 800 MG Oral Tablet acyclovir (ZOVIRAX) table t 400 mg acyclovir (ZOVIRAX) tablet 400 mg 03/13/2021 09:00:00 PM EDT 400 mg Oral active 400 mg, Oral, 2 times daily, Indications: HSV ppx, First dose on Sat03/13/21 at 2100 [facility] Medication administered onsite pregabalin (LYRICA) capsule 75 mg 03/13/2021 09:00:00 PM EDT 75 mg Oral active 75 mg, Oral, 2 times daily, First dose (after last modification) on Sat03/13/21 at 2100, For 7 doses [facility] Medication administered onsite Sulfamethoxazole 800 MG / Trimethoprim 1 60 MG Oral Tablet sulfamethoxazole- trimethoprim (BACTRIM DS,SEPTRA DS) 800-160 MG per tablet 1 tablet sulfamethoxazole-trimethoprim (BACTRIM DS,SEPTRA DS) 800-160 MG per tablet 1 tablet 03/13/2021 05:00:00 PM EDT 1 {tbl} Oral aborted 1 tablet, Oral, 3 times weekly (Once per day on Sat), Indications: PJP ppx, First dose on Sat03/13/21 at 1700 [facility] Medication administered onsite Daily Altaf (THERAGRAN) 1 tablet [id number] 03/13/2021 05:00:00 PM EDT 1 {tbl} Oral active 1 tablet, Oral, Daily, First dose on Sat03/13/21 at 1700 [facility] Medication administered onsite Dexamethasone 4 MG Oral Tablet dexamethasone (DECADRON ) tablet 8 mg dexamethasone (DECADRON) tablet 8 mg 03/13/2021 10:00:00 AM EDT 8 mg Oral active 8 mg, Oral, Daily, First dose on Sat03/13/21 at 1000 [facility] Medication administered onsite Mirtazapine 30 MG Oral Tablet mirtazapine (REMERON) ta blet 30 mg mirtazapine (REMERON) tablet 30 mg 03/12/2021 09:00:00 PM EDT 30 mg Oral active 30 mg, Oral, Nightly, First dose on Sat03/12/21 at 2100 [facility] Medication administered onsite diatrizoate meglumine-sodium (GASTROGRAFIN) solution 720 mL [id number] 03/12/2021 11:00:00 AM EDT 720 mL Rectal completed 720 mL, Rectal, Once, On Sat03/12/21 at 1100, For 1 dose [facility] Medication administered onsite Magnesium Oxide (MAG-OX) tablet 400 mg [id number] 09:00:00 AM EDT 400 mg Oral aborted 400 mg, Oral, Da lazara, First dose on Sat03/12/21 at 0900 [facility] Medication administered onsite potassium chloride (KLOR-CON) packet 40 mEq [id number] 03/12/2021 09:00:00 AM EDT 40 meq Oral completed 40 mEq , Oral, Once, On Sat03/12/21 at 0900, For 1 dose [facility] Medication administered onsite Prochlorperazine 5 MG/ML Injectable Solu tion Prochlorperazine Edisylate (COMPAZINE) injection 5 mg Prochlorperazine Edisylate (COMPAZINE) i njection 5 mg 03/11/2021 09:53:20 PM EDT 5 mg Intravenous active 5 mg, Intravenous, Every 6 hours PRN, nausea, vomiting, Starting on 03/11/21 at 2153 [facility] Medication administered onsite 72 HR Fentanyl 0.012 MG/HR Transdermal P atch fentaNYL (DURAGESIC) 12 MCG/HR 1 patch fentaNYL (DURAGESIC) 12 MCG/HR 1 patch 03/11/2021 11:00:00 AM ED T 1 {patch} Transdermal active 1 patch, Transdermal, Administer over 72 Hours, Every 72 hours, First dose on 03/11/21 at 1100, For 7 days [facility] Medication administered onsite cefepime 2000 MG Injection cefepime (MAXIPIME) injecti on 2 g cefepime (MAXIPIME) injection 2 g 03/10/2021 10:00:00 PM EDT 2 g abo rted 2 g, Intravenous Push, Every 12 hours (relative), First dose on Sat03/10/21 at 2200
Reconstitute with 20 ml sodium chloride 0.9% for injection. Administer IV push over 5 minutes. Use within 1 hour of reconstitution.
[facility] Medication administered onsite Metronidazole 5 MG/ML Injectable Solution metroNIDAZOL E (FLAGYL) IVPB 500 mg metroNIDAZOLE (FLAGYL) IVPB 500 mg 03/10/2021 06:00:00 PM EDT 50 0 mg Intravenous aborted 500 mg, Intra venous, Administer over 60 Minutes, Every 8 hours (relative), First dose on Sat03/10/21 at 1800 [facility] Medication administered onsite dexamethasone (DECADRON) injection 4 mg [id number] 03/10/20 12:00:00 PM EDT 4 mg Intravenous aborted 4 mg, Intrav enous, Every 6 hours (relative), First dose on Sat03/10/21 at 1200 [facility] Medication administered onsite pregabalin 50 MG Oral Capsule pregabalin (LYRICA) caps ule 50 mg pregabalin (LYRICA) capsule 50 mg 03/10/2021 12:00:00 PM EDT 50 mg Oral aborted 50 mg, Oral, 2 times daily, First dose on Sat03/10/21 at 1200, For 7 days [facility] Medication administered onsite potassium chloride (KLOR-CON) packet 40 mEq [id number] 03/10/2021 11:00:00 AM EDT 40 meq Oral completed 40 mEq , Oral, Once, On Sat03/10/21 at 1100, For 1 dose [facility] Medication administered onsite Codeine Phosphate 2 MG/ML / Guaifenesin 20 MG/ML Oral Solution guaifenesin- codeine (GUAIFENESIN AC) 100-10 MG/5ML liquid 10 mL guaifenesin-codeine (GUAIFENESIN AC) 100-10 MG/5ML liquid 10 mL 03/10/2021 10:15:31 AM EDT 10 mL Oral active 10 mL, Oral, E very 4 hours PRN, other, Starting on Sat03/10/21 at 1015, For 7 days [facility] Medication administered onsite iopamidol (ISOVUE-370) 76 % 70 mL [id number] 03/10/2021 08:36:23 AM E DT 70 mL Intravenous completed 70 mL, Intrav enous, Once in imaging, contrast, Starting on Sat03/10/21 at 0836, For 1 dose [facility] Medication administered onsite Simvastatin 20 MG Oral Tablet simvastatin (ZOCOR) tabl et 20 mg simvastatin (ZOCOR) tablet 20 mg 03/09/2021 09:00:00 PM EDT 20 mg Oral active 20 mg, Oral, Nightly, First dose on Sat03/09/21 at 2100 [facility] Medication administered onsite BMX solution 03/09/2021 04:00:00 PM EDT 10 mL active 10 mL, Swish & Spit, Every 4 hours PRN, mucositis, Starting on Sat03/09/21 at 1600 [facility] Medication administered onsite Nystatin 373651 UNT/ML Oral Suspension n ystatin (MYCOSTATIN) 364195 UNIT/ML oral suspension 500,000 Units nystatin (MYCOSTATIN) 872553 UNIT/ML ora l suspension 500,000 Units 03/09/2021 03:00:00 PM EDT 625335 U Oral ab orted 500,000 Units, Oral, 4 times daily, First dose on Sat03/09/21 at 1500
Swish and swit
[facility] Medication administered onsite normal saline flush 0.9 % injection 10 mL [id number] 03/09/2021 03:00:00 PM EDT 10 mL Intravenous active 10 m L, Intravenous, Every 8 hours (scheduled), First dose on Kimberly 03/09/21 at 1500
Flush with 10 mL NS prior and post medication administration. Flush with 10 mL NS prior to blood specimen collection and flush with 20 mL to clear solution/drug post blood specimen collection
[facility] Medication administered onsite Metoprolol Tartrate 25 MG Oral Tablet me toprolol tartrate (LOPRESSOR) tablet 12.5 mg metoprolol tartrate (LOPRESSOR) tablet 12.5 mg 01:00:00 PM EDT 12.5 mg Oral active 12.5 mg, Oral, 2 times daily, First dose on Sat03/09/21 at 1300 [facility] Medication administered onsite Allopurinol 300 MG Oral Tablet allopurinol (ZYLOPRIM) tablet 300 mg allopurinol (ZYLOPRIM) tablet 300 mg 03/09/2021 01:00:00 PM EDT 300 mg Oral active 300 mg, Oral, Daily, First dose on Kimberly 03/09/21 at 1300 [facility] Medication administered onsite pantoprazole 40 MG Delayed Release Oral Tablet pantoprazole (PROTONIX) EC tablet 40 mg pantoprazole (PROTONIX) EC tablet 40 mg 03/09/2021 01:00:00 PM E DT 40 mg Oral active Gastroesophageal Reflux Diseas e 40 mg, Oral, Daily, Indications: Gastroesophageal Reflux Disease, First dose on Kimberly 03/09/21 at 1300 [facility] Gastroesophageal Reflux Disease Medication administered onsite sodium chloride 0.9% (NS) infusion [id number] 03/09/2021 12:00:00 P M EDT Intravenous aborted at 75 mL/hr, Intravenous, Continuous, Starting on Kimberly 03/09/21 at 1200 [facility] Medication administered onsite 100 ML Levofloxacin 5 MG/ML Injection levofloxacin (LE VAQUIN) IVPB 500 mg levofloxacin (LEVAQUIN) IVPB 500 mg 03/09/2021 12:00:00 PM EDT 5 00 mg Intravenous aborted 500 mg, Intra venous, Administer over 60 Minutes, Every 24 hours (relative), First dose on Kimberly 03/09/21 at 1200 [facility] Medication administered onsite Hydromorphone Hydrochloride 2 MG Oral Ta blet HYDROmorphone (DILAUDID) tablet 2 mg HYDROmorphone (DILAUDID) tablet 2 mg 03/09/2021 11:53:08 AM EDT 2 mg Oral active 2 mg, Oral, Dara ry 4 hours PRN, moderate to severe pain, Starting on Kimberly 03/09/21 at 1153, For 7 days [facility] Medication administered onsite Acetaminophen 325 MG Oral Tablet acetaminophen (TYLENO L) 325 MG tablet 650 mg acetaminophen (TYLENOL) 325 MG tablet 650 mg 03/09/2021 11:52:31 AM EDT 650 mg Oral active 650 mg, Or al, Every 4 hours PRN, mild pain, Starting on Kimberly 03/09/21 at 1152
"Maximum dose of acetaminophen is 4,000 mg from all sources in 24 hours."
[facility] Medication administered onsite Morphine Sulfate (PF) injection 3 mg [id number] 03/09/2021 11:07: 57 AM EDT 3 mg Intravenous aborted 3 mg, In travenous, Every 3 hours PRN, moderate pain (4-6), Starting on Kimberly 03/09/21 at 1107, For 7 days [facility] Medication administered onsite ondansetron (ZOFRAN) injection 4 mg [id number] 03/09/2021 11:07:3 3 AM EDT 4 mg Intravenous active 4 mg, In travenous, Every 6 hours PRN, nausea, vomiting, Starting on Kimberly 03/09/21 at 1107 [facility] Medication administered onsite 750 mg 03/08/2021 12:00:00 AM EDT tablet 10 TAKE ONE TABLET BY MOUTH EVERY DAY TAKE ONE TABLET BY MOUTH EVERY DAY SOLD: 03/08/2021 [facility] cyclophosphamide (CYTOXAN) 1,238 mg in s odium chloride (NS) 0.9 % 250 mL chemo infusion 03/02/2021 12:00:00 PM EDT 750 mg/m2 Intravenous completed 1,238 mg (rounded from 1,237.5 mg = 750 mg/m2 1.65 m2), Intravenous, Administer over 30 Minutes, Once, On Kimberly 03/02/21 at 1200, For 1 dose [facility] Medication administered onsite 2 ML Midazolam 1 MG/ML Injection midazolam (VERSED) in jection midazolam (VERSED) injection 03/02/2021 09:56:36 AM EDT Intravenous co mpleted Intravenous, Code/trauma/sedation medication, Starting on Kimberly 03/02/21 at 0956 [facility] Medication administered onsite fentaNYL Citrate (PF) (SUBLIMAZE) injection [id number] 03/02/2021 09:56:28 AM EDT Intravenous completed In travenous, Code/trauma/sedation medication, Starting on Kimberly 03/02/21 at 0956 [facility] Medication administered onsite Clindamycin 18 MG/ML Injectable Solution clindamycin (CLEOCIN) IVPB 900 mg (premix) clindamycin (CLEOCIN) IVPB 900 mg (premix) 03/02/2021 09:00: 00 AM EDT 900 mg Intravenous completed Perioperative Pharmacoprop hylaxis 900 mg, Intravenous, 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
fish inspector to IR for port catheter insertion
[facility] Perioperative Pharmacoprophylaxis Medication administered onsite iopamidol (ISOVUE-370) 76 % 70 mL [id number] 03/02/2021 08:07:32 AM E DT 70 mL Intravenous completed 70 mL, Intrav enous, Once in imaging, contrast, Starting on Kimberly 03/02/21 at 0807, For 1 dose [facility] Medication administered onsite 10 mg 03/02/2021 12:00:00 AM EDT tablet 30 TAKE ONE TABLET BY MOUTH EVERY 6 HOURS NEEDED TAKE ONE TABLET BY MOUTH EVERY 6 HOURS NEEDED SOLD: 03/02/2021 [facility] Allopurinol 300 MG Oral Tablet allopurinol (ZYLOPRIM) 300 MG tablet allopurinol (ZYLOPRIM) 300 MG tablet 03/02/2021 12:00:00 AM EDT 300 mg Oral aborted Take 1 tablet (300 mg total) by mouth daily [facility] 300 mg 03/02/2021 12:00:00 AM EDT tablet 30 TAKE ONE TABLET BY MOUTH EVERY DAY TAKE ONE TABLET BY MOUTH EVERY DAY SOLD: 04/21/2021 [facility] 2 mg 03/02/2021 12:00:00 AM EDT tablet 60 TAKE ONE TABLET BY MOUTH EVERY 4 HOURS NEEDED MAXIMUM DAILY DOSE = 6 TAKE ONE TABLET BY MOUTH EVERY 4 HOURS A S NEEDED MAXIMUM DAILY DOSE = 6 SOLD: 03/02/2021 [facility] 300 mg 03/02/2021 12:00:00 AM EDT tablet 30 TAKE ONE TABLET BY MOUTH EVERY DAY TAKE ONE TABLET BY MOUTH EVERY DAY SOLD: 03/02/2021 [facility] Hydromorphone Hydrochloride 2 MG Oral Ta blet HYDROmorphone (DILAUDID) 2 MG tablet HYDROmorphone (DILAUDID) 2 MG tablet 03/02/2021 12:00:00 AM EDT 2 mg Oral active Take 1 tablet (2 mg total) by mouth every 4 (four) hours as needed (moderate to severe pain) Max Daily Amount: 12 mg [facility] Acetaminophen 325 MG Oral Tablet acetaminophen (TYLENO L) 325 MG tablet acetaminophen (TYLENOL) 325 MG tablet 03/02/2021 12:00:00 AM EDT 65 0 mg Oral aborted Take 2 tablets (650 mg total) by mouth every 4 (four) hours as needed (mild pain) [facility] Hydromorphone Hydrochloride 2 MG Oral Ta blet HYDROmorphone (DILAUDID) tablet 2 mg HYDROmorphone (DILAUDID) tablet 2 mg 03/01/2021 12:35:24 PM EDT 2 mg Oral active 2 mg, Oral, Dara ry 3 hours PRN, moderate pain (4-6), Starting on Sat03/01/21 at 1235, For 7 days [facility] Medication administered onsite Prochlorperazine 10 MG Oral Tablet prochlorperazine (C OMPAZINE) 10 MG tablet prochlorperazine (COMPAZINE) 10 MG tablet 03/01/2021 12:00:00 AM EDT 10 mg Oral active Take 1 tablet (10 mg total) by mouth every 6 (six) hours as needed [facility] Sulfamethoxazole 800 MG / Trimethoprim 1 60 MG Oral Tablet sulfamethoxazole- trimethoprim (BACTRIM DS,SEPTRA DS) 800-160 MG per tablet sulfamethoxazole- trimethoprim (BACTRIM DS,SEPTRA DS) 800-160 MG per tablet 03/01/2021 12:00:00 AM EDT aborted Take 1 t ab by mouth twice daily every Saturday, Saturday, Saturday [facility] 800-160 mg 03/01/2021 12:00:00 AM EDT tablet 24 TAKE ONE TABLET BY MOUTH TWICE A DAY EVERY SATURDAY, SATURDAY, AND SATURDAY TAKE ONE TABLET BY MOUTH TWICE A DAY EVERY SATURDAY, SATURDAY, AND SATURDAY SOLD: 03/02/2021 [facility] Docusate Sodium 50 MG / sennosides, ASSISTED 8.6 MG Oral Tablet senna-docusate (PERICOLACE) 8.6-50 MG 1 tablet senna-docusate (PERICOLACE) 8.6-50 MG 1 tablet 02/28/2021 09:00:00 PM EDT 1 {tbl} Oral active 1 tablet, Oral, 2 times daily, First dose (after last modification) on Sat02/28/21 at 2100
hold for loose stools
[facility] Medication administered onsite methotrexate (PF) 12 mg in sodium chlori de (PF) (NS) 0.9 % 2.52 mL INTRATHECAL chemo injection 02/28/2021 12:00:00 PM EDT 12 mg Intrathecal completed [facility] Medication administered onsite Hydrochlorothiazide 25 MG Oral Tablet hy drochlorothiazide (HYDRODIURIL) tablet 25 mg hydrochlorothiazide (HYDRODIURIL) tablet 25 mg 02/28/2021 09 :00:00 AM EDT 25 mg Oral active 25 mg, Oral, Ajnae ly, First dose on Sat02/28/21 at 0900
Hold for SBP < 105
[facility] Medication administered onsite Sulfamethoxazole 800 MG / Trimethoprim 1 60 MG Oral Tablet sulfamethoxazole- trimethoprim (BACTRIM DS,SEPTRA DS) 800-160 MG per tablet 1 tablet sulfamethoxazole-trimethoprim (BACTRIM DS,SEPTRA DS) 800-160 MG per tablet 1 tablet 02/27/2021 10:00:00 AM EDT 1 {tbl} Oral active 1 tablet, Oral, User specified (2 times per day on Sat), Indications: PCP prophylaxis on EPOCH chemo, First dose on Sat02/27/21 at 1000, For 7 days
1 tab PO BID Saturday, Saturday, Saturday
[facility] Medication administered onsite Clonidine Hydrochloride 0.1 MG Oral Tablet cloNIDine ( CATAPRES) tablet 0.1 mg cloNIDine (CATAPRES) tablet 0.1 mg 02/26/2021 11:00:00 PM EDT 0.1 mg Oral completed 0.1 mg, Oral, Once, On Sat 1 at 2300, For 1 dose [facility] Medication administered onsite DOXOrubicin (ADRIAMYCIN) 16.6 mg, Etopos rufus (VEPESID) 82 mg, vinCRIStine (ONCOVIN) 0.66 mg in sodium chloride (NS) 0.9 % 500 mL chemo infusion 02/26/2021 11:00:00 AM EDT Intravenous completed [facility] Medication administered onsite fosaprepitant (EMEND) 150 mg in sodium chloride (NS) 0.9 % 1 45 mL IVPB 02/26/2021 10:00:00 AM EDT 150 mg Intravenous completed 150 mg, Intravenous, Administer over 30 Minutes, Once, On Sat02/26/21 at 1000, For 1 dose [facility] Medication administered onsite granisetron (KYTRIL) injection 1 mg [id number] 02/26/2021 10:00:0 0 AM EDT 1 mg Intravenous completed 1 mg, In travenous, Once, On Sat02/26/21 at 1000, For 1 dose [facility] Medication administered onsite riTUXimab-pvvr (RUXIENCE) 500 mg in sodium chloride (NS) 0.9 % chemo infusion 02/25/2021 11:00:00 AM EDT 500 mg Intravenous completed 500 mg, Intravenous, Once, On 02/25/21 at 1100, For 1 dose
Start infusion at 75 ml/hr x 30 minutes, if tolerating, increase rate to 100 ml/hr for remainder of infusion Dose reduced to 500 mg per 5% rounding protocol
[facility] Medication administered onsite riTUXimab-pvvr (RUXIENCE) 100 mg in sodium chloride (NS) 0.9 % chemo infusion 02/25/2021 10:00:00 AM EDT 100 mg Intravenous completed 100 mg, Intravenous, Once, On 02/25/21 at 1000, For 1 dose
Start infusion at 25 ml/hr x 30 minutes, if tolerating, increase rate to 50 ml/hr x 30 minutes, if tolerating increase rate to 75 ml/hr for remainder of infusion
[facility] Medication administered onsite POLYETHYLENE GLYCOL 3350 142 MG/ML Oral Solution polyethylene glycol (GLYCOLAX) packet 17 g polyethylene glycol (GLYCOLAX) packet 17 g 02/25/2021 09:07:33 AM EDT 17 g Oral active 17 g, Or al, Daily PRN, constipation, Starting on 02/25/21 at 0907
hold for loose stools
[facility] Medication administered onsite ondansetron (ZOFRAN) injection 8 mg [id number] 02/25/2021 09:07:2 3 AM EDT 8 mg Intravenous active 8 mg, In travenous, Every 6 hours PRN, nausea, vomiting, Starting on 02/25/21 at 0907 [facility] Medication administered onsite pantoprazole 40 MG Delayed Release Oral Tablet pantoprazole (PROTONIX) EC tablet 40 mg pantoprazole (PROTONIX) EC tablet 40 mg 02/25/2021 09:00:00 AM E DT 40 mg Oral completed 40 mg, Ora l, Daily, Indications: GI prophylaxis while on high dose steroid, First dose on 02/25/21 at 0900, For 6 days [facility] Medication administered onsite diphenhydrAMINE (BENADRYL) injection 25 mg [id number] 02/25/2021 09:00:00 AM EDT 25 mg Intravenous completed 25 mg, Intravenous, Once, On 02/25/21 at 0900, For 1 dose
Give 30 minutes before rituximab-pvvr
[facility] Medication administered onsite Acetaminophen 325 MG Oral Tablet acetaminophen (TYLENO L) 325 MG tablet 650 mg acetaminophen (TYLENOL) 325 MG tablet 650 mg 02/25/2021 09:00:00 AM EDT 650 mg Oral completed 650 mg, Or al, Once, On 02/25/21 at 0900, For 1 dose
Give 30 minutes before rituximab-pvvr
[facility] Medication administered onsite Famotidine (PEPCID) injection 20 mg [id number] 02/25/2021 09:00:0 0 AM EDT 20 mg completed 20 mg, Int ravenous Push, Once, On 02/25/21 at 0900, For 1 dose
Give 30 minutes before rituximab - pvvr
[facility] Medication administered onsite 0.4 ML Enoxaparin sodium 100 MG/ML Prefi lled Syringe enoxaparin (LOVENOX) syringe 40 mg enoxaparin (LOVENOX) syringe 40 mg 02/25/2021 09:00:00 AM EDT 40 mg Subcutaneous aborted 40 mg, Subcutaneous, Every 24 hours (relative), First dose on 02/25/21 at 0900
If platelet count is less than 70,000 or hematocrit is less than 23, or if there is a 5 point decrease in hematocrit, do not give the dose and call physician/designee.
[facility] Medication administered onsite Methylprednisolone 40 MG/ML Injectable S olution methylPREDNISolone sodium succinate (Solu-MEDROL) injection 80 mg methylPREDNISolone sodium succinate (Solu-MEDROL) injection 80 mg 02/25/2021 08:00:00 AM EDT 80 mg I ntravenous completed 80 mg, Intraveno us, 2 times daily, First dose on 02/25/21 at 0800, For 5 days [facility] Medication administered onsite normal saline flush 0.9 % injection 10 mL [id number] 02/24/2021 10:00:00 PM EDT 10 mL Intravenous active 10 m L, Intravenous, Every 8 hours (scheduled), First dose on Sat02/24/21 at 2200
Flush with 10 mL NS prior and post medication administration. Flush with 10 mL NS prior to blood specimen collection and flush with 20 mL to clear solution/drug post blood specimen collection
[facility] Medication administered onsite Docusate Sodium 50 MG / sennosides, ASSISTED 8.6 MG Oral Tablet senna-docusate (PERICOLACE) 8.6-50 MG 2 tablet senna-docusate (PERICOLACE) 8.6-50 MG 2 tablet 02/24/2021 09:00:00 PM EDT 2 {tbl} Oral aborted 2 tablet, Oral, Nightly, First dose on Sat02/24/21 at 2100
hold for loose stools
[facility] Medication administered onsite sodium chloride 0.9% (NS) infusion 5291-4052-86 02/24/2021 08:00:00 P M EDT Intravenous aborted at 75 mL/hr, Intravenous, Continuous, Starting on Sat02/24/21 at 2000 [facility] Medication administered onsite Methylprednisolone 40 MG/ML Injectable S olution methylPREDNISolone sodium succinate (Solu-MEDROL) injection 80 mg methylPREDNISolone sodium succinate (Solu-MEDROL) injection 80 mg 02/24/2021 08:00:00 PM EDT 80 mg I ntravenous completed 80 mg, Intravenous, Once, On Sat02/24/21 at 2000, For 1 dose [facility] Medication administered onsite Acetaminophen 325 MG Oral Tablet acetaminophen (TYLENO L) 325 MG tablet 650 mg acetaminophen (TYLENOL) 325 MG tablet 650 mg 02/24/2021 07:27:23 PM EDT 650 mg Oral active 650 mg, Or al, Every 4 hours PRN, mild pain (1-3), fever, infusion related reaction, Starting on Sat02/24/21 at 1927 [facility] Medication administered onsite Prochlorperazine 5 MG/ML Injectable Solu tion Prochlorperazine Edisylate (COMPAZINE) injection 10 mg Prochlorperazine Edisylate (COMPAZINE) i njection 10 mg 02/24/2021 07:26:04 PM EDT 10 mg Intravenous active 10 mg, Intravenous, Every 6 hours PRN, nausea, vomiting, Starting on Sat02/24/21 at 1926 [facility] Medication administered onsite Morphine Sulfate (PF) injection 2 mg [id number] 02/24/2021 05:29: 11 PM EDT 2 mg Intravenous active 2 mg, In travenous, Every 3 hours PRN, moderate pain (4-6), severe pain (7-10), if oral meds ineffective, Starting on Sat02/24/21 at 1729, For 7 days [facility] Medication administered onsite 2 ML Midazolam 1 MG/ML Injection midazolam (VERSED) in jection midazolam (VERSED) injection 02/24/2021 03:02:19 PM EDT Intravenous co mpleted Intravenous, Code/trauma/sedation medication, Starting on Sat02/24/21 at 1502 [facility] Medication administered onsite fentaNYL Citrate (PF) (SUBLIMAZE) injection [id number] 02/24/2021 03:02:14 PM EDT Intravenous completed In travenous, Code/trauma/sedation medication, Starting on Sat02/24/21 at 1502 [facility] Medication administered onsite Allopurinol 300 MG Oral Tablet allopurinol (ZYLOPRIM) tablet 300 mg allopurinol (ZYLOPRIM) tablet 300 mg 02/24/2021 11:00:00 AM EDT 300 mg Oral active 300 mg, Oral, Daily, First dose on Sat02/24/21 at 1100 [facility] Medication administered onsite Hydrochlorothiazide 25 MG Oral Tablet hy drochlorothiazide (HYDRODIURIL) tablet 25 mg hydrochlorothiazide (HYDRODIURIL) tablet 25 mg 02/24/2021 09 :00:00 AM EDT 25 mg Oral aborted 25 mg, Oral, Dara ry morning, First dose on Sat02/24/21 at 0900 [facility] Medication administered onsite ondansetron (ZOFRAN) injection 4 mg [id number] 02/24/2021 07:40:2 4 AM EDT 4 mg Intravenous aborted 4 mg, In travenous, Every 6 hours PRN, nausea, vomiting, Starting on Sat02/24/21 at 0740 [facility] Medication administered onsite Oxycodone Hydrochloride 5 MG Oral Tablet oxyCODONE (ROXICODONE) immediate release tablet 5 mg oxyCODONE (ROXICODONE) immediate release tablet 5 mg 02/24/2021 07:31:19 AM EDT 5 mg Oral aborted 5 mg, Oral, Every 4 hours PRN, moderate pain (4-6), severe pain (7-10), Starting on Sat02/24/21 at 0731, For 7 days [facility] Medication administered onsite Oxycodone Hydrochloride 5 MG Oral Tablet oxyCODONE (ROXICODONE) immediate release tablet 5 mg oxyCODONE (ROXICODONE) immediate release tablet 5 mg 02/24/2021 04:00:00 AM EDT 5 mg Oral completed 5 mg, Oral, Once, On Sat02/24/21 at 0400, For 1 dose [facility] Medication administered onsite Simvastatin 20 MG Oral Tablet simvastatin (ZOCOR) tabl et 20 mg simvastatin (ZOCOR) tablet 20 mg 02/24/2021 01:00:00 AM EDT 20 mg Oral active 20 mg, Oral, Nightly, First dose on Sat02/24/21 at 0100 [facility] Medication administered onsite Metoprolol Tartrate 25 MG Oral Tablet me toprolol tartrate (LOPRESSOR) tablet 12.5 mg metoprolol tartrate (LOPRESSOR) tablet 12.5 mg 01:00:00 AM EDT 12.5 mg Oral active 12.5 mg, Oral, 2 times daily, First dose on Sat02/24/21 at 0100
Hold for SBP < 100 or HR < 55
[facility] Medication administered onsite normal saline flush 0.9 % injection 3 mL [id number] 02/24/2021 01:00:00 AM EDT 3 mL Intravenous aborted 3 mL , Intravenous, Every 8 hours (scheduled), First dose on Sat02/24/21 at 0100
flush per protocol, D/C Main IV fluid if appropriate
[facility] Medication administered onsite heparin (porcine) injection 5,000 Units [id number] 02/25/20 01:00:00 AM EDT 5000 U Subcutaneous aborted 5,000 Units , Subcutaneous, Every 8 hours (scheduled), First dose on Sat02/24/21 at 0100
If platelet count is less than 100,000 or hematocrit is less than 30, or if there is a 5 point decrease in hematocrit, do not give the dose and call physician/designee.
[facility] Medication administered onsite ondansetron (ZOFRAN) injection 4 mg [id number] 02/23/2021 11:00:0 0 PM EDT 4 mg Intravenous completed 4 mg, In travenous, Once, On Kimberly 02/23/21 at 2300, For 1 dose [facility] Medication administered onsite Promethazine Hydrochloride 25 MG Rectal Suppository Prometha zine HCL 02/21/2021 12:00:00 AM EDT active M [facility]ENT ([facility]) Acetaminophen 325 MG / Oxycodone Hydrochloride 7.5 MG Oral Tablet Oxycodone-Acetaminophen 02/20/2021 12:00:00 AM EDT active MED[facility] ([facility], ) 25 mg 02/19/2021 12:00:00 AM EDT suppository 8 INSERT 1 SUPPOSITORY RECTALLY EVERY 6 TO 8 HOURS NEEDED FOR NAUSEA INSERT 1 SUPPOSITORY RECTALLY EVERY 6 TO 8 HOURS NEEDED FOR NAUSEA SOLD: 02/19/2021 [facility] 5-325 mg 02/19/2021 12:00:00 AM EDT tablet 12 TAKE ONE TABLET BY MOUTH EVERY 6 HOURS NEEDED FOR PAIN MAXIMUM DAILY DOSE = 4 TABLETS TAKE ONE TABLET BY MOUTH EVERY 6 HOURS NEEDED FOR PAIN MAXIMUM DAILY DOSE = 4 TABLETS SOLD: 02/19/2021 [facility] Ondansetron 4 MG Disintegrating Oral Tablet ONDANSETRON 02/11/2021 12:00:00 AM EDT tablet,disintegrating 16 TAKE ONE T ABLET BY MOUTH EVERY 6 TO 8 HOURS NEEDED FOR NAUSEA AND VOMITING TAKE ONE TABLET BY MOUTH EVERY 6 TO 8 HO URS NEEDED FOR NAUSEA AND VOMITING SOLD: 02/11/2021 [facility] 50 mg 02/11/2021 12:00:00 AM EDT tablet 30 TAKE ONE TABLET BY MOUTH THREE TIMES A DAY NEEDED FOR MODERATE PAIN (PS 5-7) MAXIMUM DAILY DOSE = 3 TAKE ONE TABLET BY MOUTH THREE TIMES A DAY NEEDED FOR MODERATE PAIN (PS 5-7) MAXIMUM DAILY DOSE = 3 SOLD: 02/11/2021 [facility] Acetaminophen 300 MG / Codeine Phosphate 30 MG Oral Ta blet 300-30 mg ACETAMINOPHEN WITH CODEINE 02/11/2021 12:00:00 AM EDT tablet 20 TAKE ONE TABLET BY MOUTH EVERY 4 HOURS NEEDED FOR SEVERE PAIN (PS 8-10), MAXIMUM DAILY DOSE = 4 TAKE ONE TABLET BY MOUTH EVERY 4 HOURS A S NEEDED FOR SEVERE PAIN (PS 8-10), MAXIMUM DAILY DOSE = 4 SOLD: 02/11/2021 [facility] 25 mg 02/11/2021 12:00:00 AM EDT tablet 15 TAKE ONE-HALF TABLET BY MOUTH TWICE A DAY TAKE ONE-HALF TABLET BY MOUTH TWICE A DAY SOLD: 02/11/2021 [facility] Acetaminophen 325 MG / Hydrocodone Bitartrate 5 MG Ora l Tablet 5-325 mg HYDROCODONE/ACETAMINOPHEN 02/07/2021 12:00:00 AM EDT tablet 30 TAKE ONE TABLET BY MOUTH EVERY 4 HOURS NEEDED FOR PAIN MAXIMUM DAILY DOSE = 6 TAKE ONE TABLET BY MOUTH EVERY 4 HOURS NEEDED FOR PAIN MAXIMUM DAILY DOSE = 6 SOLD: 02/07/2021 [facility] Acetaminophen 325 MG / Hydrocodone Bitartrate 5 MG Ora l Tablet Hydrocodone-Acetaminophen 02/07/2021 12:00:00 AM EDT ORAL completed [facility] ([facility], ) 500 mg 01/25/2021 12:00:00 AM EDT tablet 5 TAKE 1 TABLET BY MOUTH DAILY FOR 5 DAYS TAKE 1 TABLET BY MOUTH DAILY FOR 5 DAYS SOLD: 01/25/2021 [facility] Azithromycin 500 MG Oral Tablet Azithromycin 01/25/2021 12:00:00 AM EDT completed [facility] ([facility] ) Cephalexin 500 MG Oral Tablet Cephalexin 500 MG Oral Tablet 01/17/2021 12:00:00 AM EDT 1 aborted cephalexin 500 M G Oral Tablet [place] ([facility]) Cephalexin 500 MG Oral Capsule CEPHALEXIN 01/17/2021 12:00:00 AM EDT capsule 30 TAKE ONE CAPSULE BY MOUTH THREE TIMES A DAY FOR 10 DAY S TAKE ONE CAPSULE BY MOUTH THREE TIMES A DAY FOR 10 DAYS SOLD: 01/17/2021 [facility] Vitamin C Plus 500 MG Oral Tablet Vitamin C Plus 500 MG Oral Tablet 01/17/2021 12:00:00 AM EDT 1 aborted Vitamin C Plus [facility] ([facility]) Metoprolol Tartrate 25 MG Oral Tablet Metoprolol Tartrate 25 MG Oral Tablet 01/17/2021 12:00:00 AM EDT aborted metoprolol tartrate 25 MG Oral Tablet [place] ([facility]) [place]-3 Acid Ethyl Esters (ASSISTED) 1000 MG Oral Capsule [Lovaza] Lovaza 1 GM Oral Capsule Lovaza 1 GM Oral Capsule 01/17/2021 12:00:00 AM EDT 2 aborted omega-3 acid ethyl esters (ASSISTED) 1000 MG Oral Capsule [ Lovaza] [facility]) Simvastatin 20 MG Oral Tablet Simvastatin 20 MG Oral Tablet 01/17/2021 12:00:00 AM EDT aborted simvastatin 20 M G Oral Tablet [facility]) Omeprazole 20 MG Delayed Release Oral Ca psule Omeprazole 20 MG Oral Capsule Delayed Release Omeprazole 20 MG Oral Capsule Delayed Release 01/18/20 12:00:00 AM EDT aborted omeprazole 20 MG Delayed Release Oral Capsule [facility]) Hydrochlorothiazide 25 MG Oral Tablet hydroCHLOROthiaz rufus 25 MG Oral Tablet hydroCHLOROthiazide 25 MG Oral Tablet 01/17/2021 12:00:00 AM EDT aborted hydrochlorothiazide 25 MG Oral T ablet [facility] ([facility]) Ergocalciferol 04682 UNT Oral Capsule [D risdol] Drisdol 1.25 MG (08040 UT) Oral Capsule Drisdol 1.25 MG (39327 UT) Oral Capsule 01/17/2021 12:00:00 AM EDT aborted ergocalciferol 1.25 MG Oral Capsule [Drisdol] [facility] ([facility]) Aspirin 81 MG Delayed Release Oral Table t Aspirin 81 MG Oral Tablet Delayed Release Aspirin 81 MG Oral Tablet Delayed Release 01/17/2021 12:00:00 AM EDT aborted aspirin 81 MG Delayed Re lease Oral Tablet [facility]) Fluticasone Propionate 50 MCG/ACT Nasal Suspension Flu ticasone Propionate 50 MCG/ACT Nasal Suspension 12/29/2020 12:00:00 AM EDT 2 aborted fluticasone propionate 0.05 MG/ACTUAT Metered Dose Nasal [place] [facility]) Omeprazole 20 MG Delayed Release Oral Ca psule Omeprazole 20 MG Oral Capsule Delayed Release Omeprazole 20 MG Oral Capsule Delayed Release 10/19/19 12:00:00 AM EST aborted omeprazole 20 MG Delayed Release Oral Capsule [facility]) [place]-3 Acid Ethyl Esters (ASSISTED) 1000 MG Oral Capsule [Lovaza] Lovaza 1 GM Oral Capsule Lovaza 1 GM Oral Capsule 10/19/2020 12:00:00 AM EST 2 aborted omega-3 acid ethyl esters (ASSISTED) 1000 MG Oral Capsule [ Lovaza] [facility]) Simvastatin 20 MG Oral Tablet Simvastatin 20 MG Oral Tablet 10/19/2020 12:00:00 AM EST aborted simvastatin 20 M G Oral Tablet [facility]) Metoprolol Tartrate 25 MG Oral Tablet Metoprolol Tartrate 25 MG Oral Tablet 10/19/2020 12:00:00 AM EST aborted metoprolol tartrate 25 MG Oral Tablet [facility]) Ergocalciferol 04569 UNT Oral Capsule [D risdol] Drisdol 1.25 MG (30332 UT) Oral Capsule Drisdol 1.25 MG (72402 UT) Oral Capsule 10/19/2020 12:00:00 AM EST aborted ergocalciferol 1.25 MG Oral Capsule [Drisdol] [facility]) Aspirin 81 MG Delayed Release Oral Table t Aspirin 81 MG Oral Tablet Delayed Release Aspirin 81 MG Oral Tablet Delayed Release 10/19/2020 12:00:00 AM EST aborted aspirin 81 MG Delayed Re lease Oral Tablet [facility]) Hydrochlorothiazide 25 MG Oral Tablet hydroCHLOROthiaz rufus 25 MG Oral Tablet hydroCHLOROthiazide 25 MG Oral Tablet 10/19/2020 12:00:00 AM EST aborted hydrochlorothiazide 25 MG Oral T ablet [place] ([facility]) Vitamin C Plus 500 MG Oral Tablet Vitamin C Plus 500 MG Oral Tablet 10/19/2020 12:00:00 AM EST 1 aborted Vitamin C Plus [place] ([facility]) Vitamin C Plus 500 MG Oral Tablet Vitamin C Plus 500 MG Oral Tablet 07/19/2020 12:00:00 AM EST 1 aborted Vitamin C Plus [place] ([facility]) Metoprolol Tartrate 25 MG Oral Tablet Metoprolol Tartrate 25 MG Oral Tablet 07/19/2020 12:00:00 AM EST aborted metoprolol tartrate 25 MG Oral Tablet [place] ([facility]) [place]-3 Acid Ethyl Esters (ASSISTED) 1000 MG Oral Capsule [Lovaza] Lovaza 1 GM Oral Capsule Lovaza 1 GM Oral Capsule 07/19/2020 12:00:00 AM EST 2 aborted omega-3 acid ethyl esters (ASSISTED) 1000 MG Oral Capsule [ Lovaza] [facility] ([facility]) Hydrochlorothiazide 25 MG Oral Tablet hydroCHLOROthiaz rufus 25 MG Oral Tablet hydroCHLOROthiazide 25 MG Oral Tablet 07/19/2020 12:00:00 AM EST aborted hydrochlorothiazide 25 MG Oral T ablet [place] ([facility]) Simvastatin 20 MG Oral Tablet Simvastatin 20 MG Oral Tablet 07/19/2020 12:00:00 AM EST aborted simvastatin 20 M G Oral Tablet [place] ([facility]) Omeprazole 20 MG Delayed Release Oral Ca psule Omeprazole 20 MG Oral Capsule Delayed Release Omeprazole 20 MG Oral Capsule Delayed Release 07/19/20 12:00:00 AM EST aborted omeprazole 20 MG Delayed Release Oral Capsule [place] ([facility]) Aspirin 81 MG Delayed Release Oral Table t Aspirin 81 MG Oral Tablet Delayed Release Aspirin 81 MG Oral Tablet Delayed Release 07/19/2020 12:00:00 AM EST aborted aspirin 81 MG Delayed Re lease Oral Tablet [place] ([facility]) Vitamin C Plus 500 MG Oral Tablet Vitamin C Plus 500 MG Oral Tablet 07/19/2020 12:00:00 AM EST 1 aborted Vitamin C Plus [facility] ([facility]) 4 mg 06/17/2020 12:00:00 AM EDT tablet 2 TAKE ONE TABLET BY MOUTH EVERY 8 HOURS NEEDED FOR NAUSEA TAKE ONE TABLET BY MOUTH EVERY 8 HOURS A S NEEDED FOR NAUSEA SOLD: 06/17/2020 [facility] 17.5-3.13-1.6 gram 06/17/2020 12:00:00 AM EDT recon soln 354 USE DIRECTED USE DIRECTED SOLD: 06/17/2020 [facility] Ondansetron 4 MG Oral Tablet [Zofran] Zofran 06/09/2020 12:00:00 AM EDT ORAL active [facility] ([facility]) Suprep Bowel Prep Kit Suprep Bowel Prep Kit 06/09/2020 12:00:00 AM EDT completed [facility] ([facility]) POLYETHYLENE GLYCOL 3350 142 MG/ML Oral Solution [Miralax] M iralax 06/09/2020 12:00:00 AM EDT completed [facility] ([facility]) Bisacodyl 5 MG Delayed Release Oral Tablet [Dulcolax] Dulcol ax 06/09/2020 12:00:00 AM EDT active M EDENT ([facility]) Clobetasol Propionate 0.0005 MG/MG Topic al Ointment Clobetasol Propionate 0.05% External Ointment Clobetasol Propionate 0.05% External Ointment 04/19/20 12:00:00 AM EDT aborted clobetasol propionate 0.0005 MG/MG Topical Ointment [facility]) Ascorbic Acid 500 MG/ML Injectable Solut ion Ascorbic Acid 500 MG/ML Injection Solution Ascorbic Acid 500 MG/ML Injection Solution 03/08/2020 12:00: 00 AM EDT aborted ascorbic acid 50 0 MG/ML Injectable Solution [place] ([facility]) Aspirin 81 MG Delayed Release Oral Table t Aspirin 81 MG Oral Tablet Delayed Release Aspirin 81 MG Oral Tablet Delayed Release 03/08/2020 12:00:00 AM EDT aborted aspirin 81 MG Delayed Re lease Oral Tablet [place] ([facility]) Metoprolol Tartrate 25 MG Oral Tablet Metoprolol Tartrate 25 MG Oral Tablet 03/08/2020 12:00:00 AM EDT aborted metoprolol tartrate 25 MG Oral Tablet [place] ([facility]) Omeprazole 20 MG Delayed Release Oral Ca psule Omeprazole 20 MG Oral Capsule Delayed Release Omeprazole 20 MG Oral Capsule Delayed Release 03/08/20 12:00:00 AM EDT aborted omeprazole 20 MG Delayed Release Oral Capsule [facility]) Hydrochlorothiazide 25 MG Oral Tablet hydroCHLOROthiaz rufus 25 MG Oral Tablet hydroCHLOROthiazide 25 MG Oral Tablet 03/08/2020 12:00:00 AM EDT aborted hydrochlorothiazide 25 MG Oral T ablet [place] ([facility]) [place]-3 Acid Ethyl Esters (ASSISTED) 1000 MG Oral Capsule [Lovaza] Lovaza 1 GM Oral Capsule Lovaza 1 GM Oral Capsule 03/08/2020 12:00:00 AM EDT 2 aborted omega-3 acid ethyl esters (ASSISTED) 1000 MG Oral Capsule [ Lovaza] [place] ([facility]) Ergocalciferol 48668 UNT Oral Capsule [D risdol] Drisdol 1.25 MG (64700 UT) Oral Capsule Drisdol 1.25 MG (43276 UT) Oral Capsule 03/08/2020 12:00:00 AM EDT aborted ergocalciferol 1.25 MG Oral Capsule [Drisdol] [facility]) Simvastatin 20 MG Oral Tablet Simvastatin 20 MG Oral Tablet 03/08/2020 12:00:00 AM EDT aborted simvastatin 20 M G Oral Tablet [facility] ([facility]) Osteo Bi-Flex Adv Triple St OR TABS Osteo Bi-Flex Adv Triple St OR TABS 11/30/2013 12:00:00 AM EDT aborted Osteo Bi-Flex Adv Triple St [facility] ([facility]) [place]-3 Acid Ethyl Esters (ASSISTED) 1000 MG Oral Capsule omega-3 acid ethyl esters (LOVAZA) 1 g capsule omega-3 acid ethyl esters (LOVAZA) 1 g capsule 2 g Oral aborted Take 2 g by mo uth 2 (two) times a day 2 capsules AM and 2 Capsules PM [facility] Hydrochlorothiazide 25 MG Oral Tablet hy drochlorothiazide (HYDRODIURIL) 25 MG tablet hydrochlorothiazide (HYDRODIURIL) 25 MG tablet 25 mg O ral aborted Take 25 mg by mouth every mornin g [facility] Aspirin 81 MG Chewable Tablet aspirin 81 MG chewable t ablet aspirin 81 MG chewable tablet 81 mg Oral aborted Chew 81 mg every morning [facility] Acetaminophen 325 MG / Oxycodone Hydroch loride 5 MG Oral Tablet oxyCODONE- acetaminophen (PERCOCET) 5-325 MG per tablet oxyCODONE-acetaminophen (PERCOCET) 5-325 MG per tablet 1 {tbl} Oral aborted Take 1 tablet by mouth every 6 (six) hours as needed for pain [facility] Promethazine Hydrochloride 25 MG Rectal Suppository promethazine (PHENERGAN) 25 MG suppository promethazine (PHENERGAN) 25 MG suppository 25 mg Rectal aborted Insert 25 mg into th e rectum every 6 (six) hours as needed for nausea [facility] Docusate Sodium 100 MG Oral Capsule docusate sodium (C OLACE) 100 MG capsule docusate sodium (COLACE) 100 MG capsule 100 mg Oral aborted Take 100 mg by mouth 2 (two) times a day as needed for constipation [facility] Aspirin 81 MG Delayed Release Oral Tablet aspirin EC 8 1 MG EC tablet aspirin EC 81 MG EC tablet 81 mg Oral aborted Take 81 mg by mouth daily [facility] Insurance Providers Payer name Policy type / Coverage type Policy ID Covered democrat ID Covered democrat's relationship to fish Policy Fish Plan Information MEDICARE [id number] [facility] [id number] Medicare [place] Primary 0 [id number] Self 0 Medicare [place] Medicare Primary 0 [id number] Self 0 For Life Wps Tertiary [id number] MEDICARE [id number] Medicare [place] Medicare Primary 0 [id number] Self 0 Medicare [place] Medicare Primary 0 [id number] Self 0 Medicare [place] Medicare Primary 0 [id number] Self 0 MEDICARE [id number] A EXCELLUS C [id number] Spouse [id number] Medicare [place] Medicare Primary 0 [id number] Self 0 Medicare Primary [id number] MEDICARE A [id number] Self [id number] Medicare [place] Medicare Primary 0 [id number] Self 0 Medicare [place] Medicare Primary 0 [id number] Self 0 BCBS of [facility] Supplemental Policy [id number] Family Dependent Thao Castaneda BCBS of [facility] Supplemental Policy [id number] Family Dependent Thao Castaneda BCBS of [facility] Supplemental Policy [id number] Family Dependent Thao Castaneda BCBS of [facility] Supplemental Policy [id number] Family Dependent Thao Castaneda EXCELLUS BCBS [id number] Spo [id number] BCBS of [facility] Supplemental Policy [id number] Family Dependent Thao Castaneda Blue Shield Out Of Area Secondary [id number] BCBS of [facility] Supplemental Policy [id number] Family Dependent Thao Castaneda BCBS of [facility] Supplemental Policy [id number] Family Dependent Thao Castaneda BCBS of [facility] Supplemental Policy [id number] Family Dependent Thao Castaneda EXCELLUS BCBS [id number] BCBS of [facility] Supplemental Policy [id number] Family Dependent Thao Castaneda BCBS GENERIC C [id number] Spouse N [id number] BCBS of [facility] Supplemental Policy 500 [id number] Family Dependent Thao Castaneda 500 BCBS of [facility] Supplemental Policy [id number] Family Dependent Thao Castaneda 500 BCBS of [facility] Supplemental Policy 500 [id number] Family Dependent Thao Castaneda 500 BCBS of [facility] Supplemental Policy 500 [id number] Family Dependent Thao Castaneda 500 BCBS of [facility] Supplemental Policy 500 [id number] Family Dependent Thao Castaneda 500 BCBS of [facility] Supplemental Policy 500 [id number] Family Dependent Thao Castaneda 500 BCBS of [facility] Supplemental Policy 500 [id number] Family Dependent Thao Castaneda 500 BCBS of [facility] Supplemental Policy 500 [id number] Family Dependent Thao Castaneda 500 BCBS of [facility] Supplemental Policy 500 [id number] Family Dependent Thao Castaneda 500 BCBS of [facility] Supplemental Policy 500 [id number] Family Dependent Thao Castaneda 500 BCBS of [facility] Supplemental Policy 500 [id number] Family Dependent Thao Castaneda 500 BCBS of [facility] [place] Supplemental Policy 500 [id number] Family Dependent Thao Castaneda 500 BCBS of [facility] Supplemental Policy 500 [id number] Family Dependent Thao Castaneda 500 BCBS of [facility] Supplemental Policy 500 [id number] Family Dependent Thao Castaneda [phone] BCBS of [facility] Supplemental Policy [id number] Family Dependent Thao Castaneda BCBS of [facility] Supplemental Policy [id number] Family Dependent Thao Castaneda BCBS of [facility] Supplemental Policy [id number] Family Dependent Thao Castaneda BCBS of [facility] Supplemental Policy [id number] Family Dependent Thao Castaneda BCBS of [facility] Supplemental Policy [id number] Family Dependent Thao Castaneda BCBS of [facility] Supplemental Policy [id number] Family Dependent Thao Castaneda [place] [id number] Medicare DME Jurisdiction A Fourth [id number] FOR LIFE U [id number] Self [id number] OTHER B [id number] Self [id number] INSURANCE COVID-19 COVID Jo C OVID INSURANCE COVID-19 [id number] Medicare [place] Medicare Primary 0 [id number] Self 0 Medicare Part B of [facility] Medicare Primary 0 [id number] Self 0 Medicare Part B of [facility] Medicare Primary 0 [id number] Self 0 Medicare Part B of [facility] Medicare Primary 0 [id number] Self 0 [place] [id number] Medicare Part B of [facility] Medicare Primary 0 [id number] Self 0 MEDICARE PART A [facility] [id number] Medicare Part B of [facility] Medicare Primary 0 [id number] Self 0 [place] UNAVAILABLE 01 UNAVAILABLE Medicare Part B of [place] Medicare Primary 0 [id number] Self 0 FOR LIFE [id number] Medicare Part B of [facility] Medicare Primary 0 [id number] Self 0 Medicare Part B of [facility] Medicare Primary 0 [id number] Self 0 Medicare Part B of [facility] Medicare Primary 0 [id number] Self 0 Medicare Part B of [facility] Medicare Primary 0 [id number] Self 0 Medicare Part B of [facility] Medicare Primary 0 [id number] Self 0 Medicare Part B of [facility] Medicare Primary 0 [id number] Self 0 Medicare [place] B of [place] Medicare Primary 0 [id number] Self 0 Medicare Part B of [facility] Medicare Primary 0 [id number] Self 0 Medicare [place] B of [place] Medicare Primary 0 [id number] Self 0 Medicare [place] B of [place] Medicare Primary 0 [id number] Self 0 Medicare [place] B of [place] Medicare Primary 0 [id number] Self 0 [place] [facility] Medicare Primary [id number] Self [id number] WPS For Life Medigap Part B [id number] [place] Medicare Primary [id number] Self [id number] [employer] BCBS Medigap Part B [id number] MEDICARE [id number] SP [id number] A Medicare Part B of [facility] Medicare Primary 0 [id number] Self 0 Medicare Part B of [place] Medicare Primary 0 [id number] Self 0 Medicare Part B [facility] Medicare Primary 0 [id number] Self 0 MEDICARE PART A -O/P [id number] EXCELL[place] BCBS B [id number] S N [id number] FOR LIFE O [id number] S [id number] MEDICARE C [id number] S [id number] A EXCELL[employer] BCBS B [id number] P [id number] BLUE [place]OSS BLUE [place] -PHYSICIAN [id number] 01 [id number] HEA [id number] S [id number] EXCELL[employer] BCBS B [id number] S N [id number] MEDICARE MCA [id number] S [id number] MEDICARE MCA [id number] S [id number] [facility] [id number] EXCELL[place] BL[employer] [place] [place] HEA [id number] S P [id number] HEA [id number] S [id number] MEDICARE [id number] SP [id number] BLUE CROSS BLUE [place]IELD -RECURRING [id number] 01 [id number] FOR LIFE -RECURRING [id number] EXCE[employer] BCBS B [id number] P [id number] Medicare [place] Medicare Primary [id number] Self [id number] WPS For Life Medigap Part B [id number] Medicare [place] Medicare Primary [id number] [facility]) Supplemental Policy 0 [id number] Family Dependent Thao Castaneda 0 MEDICARE -RECURRING [id number] FOR LIFE-O/P [id number] 01 [id number] [facility] Supplemental Policy 0 [id number] Family Dependent Thao Castaneda 0 [id number] Spo [id number] MEDICARE PART A -O/P [id number] [facility] Supplemental Policy 0 [id number] Family Dependent Thao Castaneda 0 BLUE CROSS BLUE SHIELD-O/P [id number] 01 [id number] MEDICARE PART A -O/P [id number] 18 [id number] [facility] Supplemental Policy 0 [id number] Family Dependent Thao Castaneda 0 [place] 280/[id number] WI2 [id number] FOR LIFE [id number] Medicare [place] Medicare Primary [id number] Self [id number] WPS For Life Medigap Part B [id number] MEDICARE -O/P [id number] 18 [id number] [facility] BCBS B [id number] P [id number] FOR LIFE -RECURRING [id number] 01 [id number] [place] 280/[id number] BLUE CROSS BLUE SHIELD-O/P [id number] 01 [id number] MEDICARE -RECURRING [id number] 18 [id number] FOR LIFE O UNAVAILABLE P U NAVAILABLE [employer] BCBS S UNAVAILABLE S UNAV AILABLE MEDICARE P UNAVAILABLE S UNAVAILA BLE [id number] Problems, Conditions, and Diagnoses Code Display Name Description Problem Type Effective Dates Data Source(s) R50.81 Fever presenting with conditions classif ied elsewhere Fever presenting with conditions classif Diagnosis 07/15/2021 02:19:00 PM EST [facility] D70.9 Neutropenia, unspecified Neutropenia, unspecified Diag nosis 07/15/2021 02:19:[address] [facility] 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, lymph nod es of head, face, and neck Diffuse large B-cell lymphoma, lymph nodes of head, face, and neck Diagnosis 07/15/2021 08:44:00 AM EST [facility] U07.1 COVID-19 COVID-19 Diagnosis 07/13/2021 09:39:09 AM ES T [facility] C8510 Unspecified B-cell lymphoma, unspecified site Unspecified B-cell lymphoma, unspecified site Diagnosis 06/23/2021 07:59:00 AM EDT [facility] C83.30 Diffuse large B-cell lymphoma, unspecifi ed site Diffuse large B-cell lymphoma, unspecifi Diagnosis 05/24/2021 11:19:00 AM EDT [facility] 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, lymph nod es of head, face, and neck Diffuse large b-cell lymphoma, lymph nod Diagnosis 05/04/2021 09:49:00 AM EDT [facility] D61.818 Other pancytopenia Other pancytopenia Diagnosis 09/2020 11:04:00 AM EDT [facility] R52 Pain, unspecified Pain, unspecified Diagnosis 03/09/2021 09:37:00 AM EDT [facility] C189 Malignant neoplasm of colon, unspecified Malignant neoplasm of colon, unspecified Diagnosis 03/08/2021 10:20:00 PM EDT [facility] R110 Nausea Nausea Diagnosis 03/08/2021 10:20:00 PM ED T [facility] Z9221 Personal history of antineoplastic chemo therapy Personal history of antineoplastic chemotherapy Diagnosis 03/08/2021 10:20:00 PM EDT [facility] Z48529 CONTACT WITH AND SUSPECTED EXPOSURE TO C OVID-19 CONTACT WITH AND SUSPECTED EXPOSURE TO COVID-19 Diagnosis 03/08/2021 10:20:00 PM EDT [facility] 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 Diagnosis 03/08/2021 10:20:00 PM EDT [facility] Z853 Personal history of malignant neoplasm o f breast Personal history of malignant neoplasm of breast Diagnosis 03/08/2021 10:20:00 PM EDT [facility] [id number] Adverse effect of antineopla stic and immunosuppressive drugs, initial encounter Adverse effect of antineoplastic and imm unosuppressive drugs, initial encounter Diagnosis 03/08/2021 10:20:00 PM EDT [facility] I10 Essential (primary) hypertension Essential (primary) h ypertension Diagnosis 03/08/2021 10:20:00 PM EDT [facility] J25262 Other pancytopenia Other pancytopenia Diagnosis 10:20:00 PM EDT [facility] E871 Hypo-osmolality and hyponatremia Hypo-osmolality and hyponatremia Diagnosis 03/08/2021 10:20:00 PM EDT [facility] 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 Diagnosis 03/08/2021 10:20:00 PM EDT [facility] R531 Weakness Weakness Diagnosis 03/08/2021 10:20:00 PM ED T [facility] R109 Unspecified abdominal pain Unspecified abdominal pain Diagnosis 03/08/2021 02:39:00 AM EDT [facility] Z8572 Personal history of non-Hodgkin lymphoma s Personal history of non-Hodgkin lymphomas Diagnosis 03/02/2021 10:48:00 PM EDT [facility] E876 Hypokalemia Hypokalemia Diagnosis 03/02/2021 10:48:00 PM EDT [facility] E860 Dehydration Dehydration Diagnosis 03/02/2021 10:48:00 PM EDT [facility] R112 Nausea with vomiting, unspecified Nausea with vo miting, unspecified Diagnosis 03/02/2021 10:48:00 PM EDT [facility] C83.30 Diffuse large B-cell lymphoma, unspecifi ed site Diffuse large B-cell lymphoma, unspecified site Diagnosis 02/24/2021 09:54:00 PM EDT 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, unspecified site Small cell B-cell lymphoma, unspecified Diagnosis 02/23/2021 08:55:00 PM EDT [facility] C85.90 Non-Hodgkin lymphoma, unspecified, unspe cified site Non-Hodgkin lymphoma, unspecified, unspe Diagnosis 02/23/2021 08:55:00 PM EDT [facility] J39.2 Other diseases of pharynx Other diseases of pharynx Di agnosis 02/13/2021 12:14:00 PM EDT [facility] M65760 Encounter for preprocedural laboratory e xamination Encounter for preprocedural laboratory examination Diagnosis 02/02/2021 07:03:00 AM EDT [facility] E782 Mixed hyperlipidemia Mixed hyperlipidemia Diagnosis 07/19/2020 08:22:00 AM [facility] D259 Leiomyoma of uterus, unspecified Leiomyoma of ut erus, unspecified Diagnosis 07/19/2020 07:33:00 AM [facility] R58079 Unspecified ovarian cyst, left side Unspecified ovarian cyst, left side Diagnosis 07/19/2020 07:33:00 AM [facility] N950 Postmenopausal bleeding Postmenopausal bleeding Diagno sis 07/19/2020 07:33:00 AM [facility] [id number] Encounter for gynecological examination (general) (routine) without abnormal findings Encounter for gynecological examination (general) (routine) without abnormal findings Diagnosis 07/12/2020 02:24:00 PM EST [facility] N200 Calculus of kidney Calculus of kidney Diagnosis 0 08:20:00 AM EDT [facility] K648 Other hemorrhoids Other hemorrhoids Diagnosis 06/21/2020 07:15:00 AM EDT [facility] S79639 Encounter for other preprocedural examin ation Encounter for other preprocedural examination Diagnosis 06/17/2020 03:00:00 PM EDT [facility] Z1159 Encounter for screening for other viral diseases Encounter for screening for other viral diseases Diagnosis 06/17/2020 03:00:00 PM EDT [facility] R99 Ill-defined and unknown cause of mortali ty Ill-defined and unknown cause of mortality Diagnosis 06/17/2020 12:03:00 PM EDT [facility] N8302 Follicular cyst of left ovary Follicular cyst of left ovary Diagnosis 06/13/2020 09:01:00 AM EDT [facility] K625 Hemorrhage of anus and rectum Hemorrhage of anus and r ectum Diagnosis 06/09/2020 12:53:00 PM EDT [facility] E43 Severe protein-calorie malnutrition Severe prote in-calorie malnutrition [id number] 03/13/2021 12:00:00 AM EDT [facility] K59.00 Constipation Constipation [id number] 03/10/2021 12:00:00 A M EDT [facility] R93.[address] scan, gastrointestinal tract Abnormal CT scan, gastrointestinal tract [id number] 03/10/2021 12:00:00 AM EDT [facility] E78.00 Hypercholesterolemia Hypercholesterolemia [id number] 03/09/2021 12:00:00 AM EDT [facility] I10 Hypertension Hypertension [id number] 03/09/2021 12:00:00 A M EDT [facility] D61.818 Pancytopenia Pancytopenia [id number] 03/09/2021 12:00:00 A M EDT [facility] D70.9 Neutropenia Neutropenia [id number] 03/09/2021 12:00:00 AM EDT [facility] K21.9 GERD (gastroesophageal reflux disease) G ERD (gastroesophageal reflux disease) [id number] 03/09/2021 12:00:00 AM EDT [facility] 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 [id number] 02/24/2021 12:00:00 AM EDT [facility] [id number] Malignant lymphoma of lymph nodes of hea d, face AND/OR neck (disorder) Lymph Node Malignant Lymphoma B-cell Head, Face, and Neck Problem 02/24/2021 12:00:00 AM EDT [place] ([facility]) 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 Problem 02/20/2021 12:00:00 AM EDT [facility] ([facility], ) 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, 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, face and neck Problem 02/20/2021 12:00:00 AM ED T [facility] ([facility], ) 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, 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, oral cavity and pharynx Problem 02/01/2021 12:00:00 AM EDT [facility] ([facility] ) J00 Common cold Common cold Problem 01/25/2021 12:00:00 AM EDT [facility] ([facility] ) H65.21 Chronic serous otitis media Chronic serous otitis medi a Problem 01/25/2021 12:00:00 AM EDT [facility] ([facility] ) [id number] Personal history of primary malignant ne oplasm of breast Personal history of primary malignant neoplasm of breast Problem 2019 12:00:00 AM EST [facility] ([facility]) Note: 1992 and 1993 double mastectomies [id number] Prolapsed internal hemorrhoids Prolapsed internal hemo rrhoids Problem 07/12/2020 12:00:00 AM EST [facility] ([facility]) Note: colonoscopy 06/[address] Liu [id number] Hemorrhage of rectum and anus Hemorrhage of rectum and anus Problem 06/09/2020 12:00:00 AM EDT [facility] ([facility]) [id number] Screening for malignant neoplasm of colo n Screening for malignant neoplasm of colon Problem 06/09/2020 12:00:00 AM EDT [facility] ([facility]) [id number] Pure hypercholesterolemia Pure hypercholesterolemia Pr oblem 06/09/2020 12:00:00 AM EDT [facility] ([facility]) [id number] Essential hypertension Essential hypertension Problem 06/09/2020 12:00:00 AM EDT [facility] ([facility]) 698.9 Rectal Itching Rectal Itching Problem 05/24/2015 12:00:00 AM EDT - 02/28/2021 12:00:00 AM EDT [place] ([facility]) Surgeries/Procedures Procedure Description Date Indications Data Source(s) CHEMOTX ADMN OPERATIONS TRAINER REQ SPINAL PUNCTURE <td>IR LUMBAR PUN CTURE WITH CHEMO INJECTION</td><td>Routine</td><td>07/05/2021 2:35 PM EST</td><td> Diffuse large b-cell lymphoma, lymph nodes of head, face, and neck</td><td> </td> 07/05/2021 02:35:38 PM EST Diffuse large b-cell lymphoma, lymph nodes of head, fa ce, and neck [facility] Diffuse large b-cell lymphoma, lymph nod es of head, face, and neck PROTHROMBIN TIME <td>POCT INR</td><td>Routine </td><td>07/05/2021 12:23 PM EST</td><td></td><td> </td> 07/05/2021 12:23:00 PM EST [facility] Electrocardiogram Interpretation & Report Only 12:00:00 AM EDT [facility] ([facility]) 2018 NCOV AMPLIFIED <td>2019 NCOV AMPLIFIED</td> <td>STAT</td><td>06/09/2021 10:05 AM EDT</td><td> COVID-19</td><td> </td> 06/09/2021 10:05:00 AM EDT COVID-19 [facility] COVID-19 BLOOD TYPING ABO <td>TYPE AND SCREEN</td><td> Routine</td><td>06/06/2021 12:01 AM EDT</td><td></td><td> </td> 06/06/2021 12:01:00 AM EDT [facility] FLUORO NEEDLE/CATH SPINE/PARASPINAL DX/THER <td>IR LUM BAR PUNCTURE</td><td>Routine</td><td>05/24/2021 3:16 PM EDT</td><td> Diffuse large b-cell lymphoma, lymph nodes of head, face, and neck</td><td> </td> 05/24/2021 03:16:28 PM EDT Diffuse large b-cell lymphoma, lymph nodes of head, fa ce, and neck [facility] Diffuse large b-cell lymphoma, lymph nod es of head, face, and neck CHEMOTX ADMN OPERATIONS TRAINER REQ SPINAL PUNCTURE <td>IR LUMBAR PUN CTURE WITH CHEMO INJECTION</td><td>Routine</td><td>05/04/2021 1:25 PM EDT</td><td> Diffuse large b-cell lymphoma, lymph nodes of head, face, and neck</td><td> </td> 05/04/2021 01:25:08 PM EDT Diffuse large b-cell lymphoma, lymph nodes of head, fa ce, and neck [facility] Diffuse large b-cell lymphoma, lymph nod es of head, face, and neck BLOOD COUNT COMPLETE AUTOMATED <td>CBC</td><td>Routine </td><td>04/01/2021 5:30 AM EDT</td><td></td><td> </td> 04/01/2021 05:30:00 AM EDT [facility] BASIC METABOLIC PANEL CALCIUM TOTAL <td>BASIC METABOLI C PANEL</td><td>Routine</td><td>04/01/2021 5:30 AM EDT</td><td></td><td> </td> 04/01/2021 05:30:00 AM EDT [facility] THROMBOPLASTIN TIME PARTIAL PLASMA/WHOLE BLOOD <td>APTT</td><td>Routine</td><td>03/30/2021 5:08 AM EDT</td><td></td><td> </td> 03/30/2021 05:08:00 AM EDT [facility] PROTHROMBIN TIME <td>PROTIME-INR</td><td>Rout ine</td><td>03/30/2021 5:08 AM EDT</td><td></td><td> </td> 03/30/2021 05:08:00 AM EDT [facility] BLOOD COUNT COMPLETE AUTOMATED <td>CBC</td><td>Routine </td><td>03/30/2021 5:08 AM EDT</td><td></td><td> </td> 03/30/2021 05:08:00 AM EDT [facility] COMPREHENSIVE METABOLIC PANEL <td>COMPREHENSIVE METABO LIC PANEL</td><td>Timed</td><td>03/30/2021 5:08 AM EDT</td><td></td><td> </td> 03/30/2021 05:08:00 AM EDT [facility] BLOOD COUNT COMPLETE AUTOMATED <td>CBC</td><td>Routine </td><td>03/29/2021 5:22 AM EDT</td><td></td><td> </td> 03/29/2021 05:22:00 AM EDT [facility] URIC ACID BLOOD <td>URIC ACID</td><td>Add-On </td><td>03/29/2021 5:22 AM EDT</td><td></td><td> </td> 03/29/2021 05:22:00 AM EDT [facility] PHOSPHORUS INORGANIC <td>PHOSPHORUS</td><td>Add-O n</td><td>03/29/2021 5:22 AM EDT</td><td></td><td> </td> 03/29/2021 05:22:00 AM EDT [facility] MAGNESIUM <td>MAGNESIUM</td><td>Add-On </td><td>03/29/2021 5:22 AM EDT</td><td></td><td> </td> 03/29/2021 05:22:00 AM EDT [facility] LACTATE DEHYDROGENASE LDH <td>LACTATE DEHYDROGENASE</t d><td>Add- On</td><td>03/29/2021 5:22 AM EDT</td><td></td><td> </td> 03/29/2021 05:22:00 AM EDT [facility] COMPREHENSIVE METABOLIC PANEL <td>COMPREHENSIVE METABO LIC PANEL</td><td>Timed</td><td>03/29/2021 5:22 AM EDT</td><td></td><td> </td> 03/29/2021 05:22:00 AM EDT [facility] BLOOD COUNT COMPLETE AUTOMATED <td>CBC</td><td>Routine </td><td>03/28/2021 6:00 AM EDT</td><td></td><td> </td> 03/28/2021 06:00:00 AM EDT [facility] COMPREHENSIVE METABOLIC PANEL <td>COMPREHENSIVE METABO LIC PANEL</td><td>Timed</td><td>03/28/2021 6:00 AM EDT</td><td></td><td> </td> 03/28/2021 06:00:00 AM EDT [facility] US SOFT TISSUE HEAD & NECK REAL TIME IMGE DOCMTN <td>U S HEAD NECK</td><td>Routine</td><td>03/27/2021 3:34 PM EDT</td><td></td><td> </td> 03/27/2021 03:34:09 PM EDT [facility] BLOOD COUNT COMPLETE AUTOMATED <td>CBC</td><td>Routine </td><td>03/27/2021 2:27 PM EDT</td><td></td><td> </td> 03/27/2021 02:27:00 PM EDT [facility] COMPREHENSIVE METABOLIC PANEL <td>COMPREHENSIVE METABO LIC PANEL</td><td>Routine</td><td>03/27/2021 2:27 PM EDT</td><td></td><td> </td> 03/27/2021 02:27:00 PM EDT [facility] ELECTROCARDIOGRAM, COMPLETE (EKG) ELECTROCARDIOGRAM, COMPLET E (EKG) 03/20/2021 12:00:00 AM EDT [place] ([facility]) GLUC BLD GLUC MNTR DEV CLEARED FDA SPEC HOME USE <td>P OCT GLUCOSE</td><td>Routine</td><td>03/15/2021 9:31 AM EDT</td><td></td><td> </td> 03/15/2021 09:31:00 AM EDT [facility] BLOOD COUNT COMPLETE AUTO&AUTO DIFRNTL WBC COUNT <td>C BC AND DIFFERENTIAL</td><td>Timed</td><td>03/15/2021 5:59 AM EDT</td><td></td><td> </td> 03/15/2021 05:59:00 AM EDT [facility] BASIC METABOLIC PANEL CALCIUM TOTAL <td>BASIC METABOLI C PANEL</td><td>Timed</td><td>03/15/2021 5:59 AM EDT</td><td></td><td> </td> 03/15/2021 05:59:00 AM EDT [facility] BLOOD COUNT COMPLETE AUTO&AUTO DIFRNTL WBC COUNT <td>C BC AND DIFFERENTIAL</td><td>Timed</td><td>03/14/2021 5:35 AM EDT</td><td></td><td> </td> 03/14/2021 05:35:00 AM EDT [facility] MAGNESIUM <td>MAGNESIUM</td><td>Routin e</td><td>03/14/2021 5:35 AM EDT</td><td></td><td> </td> 03/14/2021 05:35:00 AM EDT [facility] BASIC METABOLIC PANEL CALCIUM TOTAL <td>BASIC METABOLI C PANEL</td><td>Timed</td><td>03/14/2021 5:35 AM EDT</td><td></td><td> </td> 03/14/2021 05:35:00 AM EDT [facility] IRON BINDING CAPACITY <td>IRON PANEL</td><td>Add-O n</td><td>03/13/2021 5:59 AM EDT</td><td></td><td> </td> 03/13/2021 05:59:00 AM EDT [facility] BLOOD COUNT COMPLETE AUTO&AUTO DIFRNTL WBC COUNT <td>C BC AND DIFFERENTIAL</td><td>Timed</td><td>03/13/2021 5:59 AM EDT</td><td></td><td> </td> 03/13/2021 05:59:00 AM EDT [facility] FOLIC ACID SERUM <td>FOLATE</td><td>Add-On</t d><td>03/13/2021 5:59 AM EDT</td><td></td><td> </td> 03/13/2021 05:59:00 AM EDT [facility] FERRITIN <td>FERRITIN</td><td>Add-On< /td><td>03/13/2021 5:59 AM EDT</td><td></td><td> </td> 03/13/2021 05:59:00 AM EDT [facility] CYANOCOBALAMIN VITAMIN B-12 <td>VITAMIN B12</td><td>Ad d-On</td><td>03/13/2021 5:59 AM EDT</td><td></td><td> </td> 03/13/2021 05:59:00 AM EDT [facility] BASIC METABOLIC PANEL CALCIUM TOTAL <td>BASIC METABOLI C PANEL</td><td>Timed</td><td>03/13/2021 5:59 AM EDT</td><td></td><td> </td> 03/13/2021 05:59:00 AM EDT [facility] RADEX COLON BARIUM ENEMA W/WOKUB <td>XR GASTRO ENEMA THERAPEUTIC</td><td>Routine</td><td>03/12/2021 9:56 AM EDT</td><td></td><td> </td> 03/12/2021 09:56:45 AM EDT [facility] BLOOD COUNT COMPLETE AUTO&AUTO DIFRNTL WBC COUNT <td>C BC AND DIFFERENTIAL</td><td>Timed</td><td>03/12/2021 5:38 AM EDT</td><td></td><td> </td> 03/12/2021 05:38:00 AM EDT [facility] BASIC METABOLIC PANEL CALCIUM TOTAL <td>BASIC METABOLI C PANEL</td><td>Routine</td><td>03/12/2021 5:38 AM EDT</td><td></td><td> </td> 03/12/2021 05:38:00 AM EDT [facility] BLOOD COUNT COMPLETE AUTO&AUTO DIFRNTL WBC COUNT <td>C BC AND DIFFERENTIAL</td><td>Timed</td><td>03/11/2021 6:14 AM EDT</td><td></td><td> </td> 03/11/2021 06:14:00 AM EDT [facility] BASIC METABOLIC PANEL CALCIUM TOTAL <td>BASIC METABOLI C PANEL</td><td>Routine</td><td>03/11/2021 6:14 AM EDT</td><td></td><td> </td> 03/11/2021 06:14:00 AM EDT [facility] CT ABDOEN & PELVIS W/CONTRAST MATERIAL <td>CT ABDOMEN PELVIS W CONTRAST</td><td>Routine</td><td>03/10/2021 9:03 AM EDT</td><td></td><td> </td> 03/10/2021 09:03:24 AM EDT [facility] CT MAXILLOFACIAL W/CONTRAST MATERIAL <td>CT FACIAL BON ES W CONTRAST</td><td>Routine</td><td>03/10/2021 9:03 AM EDT</td><td></td><td> </td> 03/10/2021 09:03:24 AM EDT [facility] BLOOD COUNT COMPLETE AUTO&AUTO DIFRNTL WBC COUNT <td>C BC AND DIFFERENTIAL</td><td>Timed</td><td>03/10/2021 5:26 AM EDT</td><td></td><td> </td> 03/10/2021 05:26:00 AM EDT [facility] BASIC METABOLIC PANEL CALCIUM TOTAL <td>BASIC METABOLI C PANEL</td><td>Routine</td><td>03/10/2021 5:26 AM EDT</td><td></td><td> </td> 03/10/2021 05:26:00 AM EDT [facility] URINE CULTURE HOLD SPECIMEN <td>URINE CULTURE HOLD SPECIMEN</td><td>Routine</td><td>03/09/2021 9:38 PM EDT</td><td></td><td> </td> 03/09/2021 09:38:00 PM EDT [facility] ECG ROUTINE ECG W/LEAST 12 LDS TRCG ONLY W/O I&R <td>E CG 12- LEAD</td><td>Routine</td><td>03/09/2021 2:19 PM EDT</td><td></td><td></td> 03/09/2021 02:19:57 PM EDT [facility] CULTURE BACTERIAL BLOOD AEROBIC W/ID ISOLATES <td>BLOO D CULTURE</td><td>Routine</td><td>03/09/2021 11:36 AM EDT</td><td></td><td> </td> 03/09/2021 11:36:00 AM EDT [facility] [facility] CULTURE BACTERIAL BLOOD AEROBIC W/ID ISOLATES <td>BLOO D CULTURE</td><td>Routine</td><td>03/09/2021 11:34 AM EDT</td><td></td><td> </td> 03/09/2021 11:34:00 AM EDT [facility] LACTATE <td>LACTIC ACID</td><td>Time d</td><td>03/09/2021 11:34 AM EDT</td><td></td><td> </td> 03/09/2021 11:34:00 AM EDT [facility] XR CHEST PORTABLE <td>XR CHEST PORTABLE</td><t d>Routine</td><td>03/09/2021 11:26 AM EDT</td><td></td><td> </td> 03/09/2021 11:26:01 AM EDT [facility] SEDIMENTATION RATE RBC AUTOMATED <td>SEDIMENTATION RAT E</td><td>Add- On</td><td>03/09/2021 11:26 AM EDT</td><td></td><td> </td> 03/09/2021 11:26:00 AM EDT [facility] BLOOD COUNT COMPLETE AUTO&AUTO DIFRNTL WBC COUNT <td>C BC AND DIFFERENTIAL</td><td>STAT</td><td>03/09/2021 11:26 AM EDT</td><td></td><td> </td> 03/09/2021 11:26:00 AM EDT [facility] C-REACTIVE PROTEIN <td>C-REACTIVE PROTEIN</td>< td>Routine</td><td>03/09/2021 11:26 AM EDT</td><td></td><td> </td> 03/09/2021 11:26:00 AM EDT [facility] COMPREHENSIVE METABOLIC PANEL <td>COMPREHENSIVE METABO LIC PANEL</td><td>STAT</td><td>03/09/2021 11:26 AM EDT</td><td></td><td> </td> 03/09/2021 11:26:00 AM EDT [facility] CT MAXILLOFACIAL W/CONTRAST MATERIAL <td>CT FACIAL BON ES W CONTRAST</td><td>Routine</td><td>03/02/2021 8:38 AM EDT</td><td></td><td> </td> 03/02/2021 08:38:57 AM EDT [facility] BLOOD COUNT COMPLETE AUTO&AUTO DIFRNTL WBC COUNT <td>C BC AND DIFFERENTIAL</td><td>Timed</td><td>03/02/2021 6:40 AM EDT</td><td></td><td> </td> 03/02/2021 06:40:00 AM EDT [facility] URIC ACID BLOOD <td>URIC ACID</td><td>Timed< /td><td>03/02/2021 6:40 AM EDT</td><td></td><td> </td> 03/02/2021 06:40:00 AM EDT [facility] PHOSPHORUS INORGANIC <td>PHOSPHORUS</td><td>Timed </td><td>03/02/2021 6:40 AM EDT</td><td></td><td> </td> 03/02/2021 06:40:00 AM EDT [facility] MAGNESIUM <td>MAGNESIUM</td><td>Timed< /td><td>03/02/2021 6:40 AM EDT</td><td></td><td> </td> 03/02/2021 06:40:00 AM EDT [facility] LACTATE DEHYDROGENASE LDH <td>LACTATE DEHYDROGENASE</td><td>Timed</td><td>03/02/2021 6:40 AM EDT</td><td></td><td> </td> 03/02/2021 06:40:00 AM EDT [facility] COMPREHENSIVE METABOLIC PANEL <td>COMPREHENSIVE METABO LIC PANEL</td><td>Timed</td><td>03/02/2021 6:40 AM EDT</td><td></td><td> </td> 03/02/2021 06:40:00 AM EDT [facility] FLUORO NEEDLE/CATH SPINE/PARASPINAL DX/THER <td>IR LUM BAR PUNCTURE WITH CHEMO INJECTION</td><td>Routine</td><td>03/01/2021 1:50 PM EDT</td><td></td><td> </td> 03/01/2021 01:50:46 PM EDT [facility] CUL BACT XCPT URINE BLOOD/STOOL AEROBIC ISOL <td>CSF CULTURE</td><td>Timed</td><td>03/01/2021 1:35 PM EDT</td><td></td><td></td> 03/01/2021 01:35:00 PM EDT [facility] Center CELL COUNT MISC BODY FLUIDS W/DIFFERENTIAL COUNT <td>C SF CELL COUNT</td><td>Timed</td><td>03/01/2021 1:35 PM EDT</td><td></td><td> </td> 03/01/2021 01:35:00 PM EDT [facility] PROTEIN TOTAL XCPT REFRACTOMETRY OTH SRC <td>CSF PROTE IN - TUBE #2</td><td>Timed</td><td>03/01/2021 1:35 PM EDT</td><td></td><td> </td> 03/01/2021 01:35:00 PM EDT [facility] GLUCOSE BODY FLUID OTHER THAN BLOOD <td>GLUCOSE, CSF - TUBE #2</td><td>Timed</td><td>03/01/2021 1:35 PM EDT</td><td></td><td> </td> 03/01/2021 01:35:00 PM EDT [facility] BLOOD COUNT COMPLETE AUTO&AUTO DIFRNTL WBC COUNT <td>C BC AND DIFFERENTIAL</td><td>Timed</td><td>03/01/2021 5:28 AM EDT</td><td></td><td> </td> 03/01/2021 05:28:00 AM EDT [facility] URIC ACID BLOOD <td>URIC ACID</td><td>Timed< /td><td>03/01/2021 5:28 AM EDT</td><td></td><td> </td> 03/01/2021 05:28:00 AM EDT [facility] PHOSPHORUS INORGANIC <td>PHOSPHORUS</td><td>Timed </td><td>03/01/2021 5:28 AM EDT</td><td></td><td> </td> 03/01/2021 05:28:00 AM EDT [facility] MAGNESIUM <td>MAGNESIUM</td><td>Timed< /td><td>03/01/2021 5:28 AM EDT</td><td></td><td> </td> 03/01/2021 05:28:00 AM EDT [facility] LACTATE DEHYDROGENASE LDH <td>LACTATE DEHYDROGENASE</td><td>Timed</td><td>03/01/2021 5:28 AM EDT</td><td></td><td> </td> 03/01/2021 05:28:00 AM EDT [facility] COMPREHENSIVE METABOLIC PANEL <td>COMPREHENSIVE METABO LIC PANEL</td><td>Timed</td><td>03/01/2021 5:28 AM EDT</td><td></td><td> </td> 03/01/2021 05:28:00 AM EDT [facility] BLOOD COUNT COMPLETE AUTO&AUTO DIFRNTL WBC COUNT <td>C BC AND DIFFERENTIAL</td><td>Timed</td><td>02/28/2021 5:18 AM EDT</td><td></td><td> </td> 02/28/2021 05:18:00 AM EDT [facility] URIC ACID BLOOD <td>URIC ACID</td><td>Timed< /td><td>02/28/2021 5:18 AM EDT</td><td></td><td> </td> 02/28/2021 05:18:00 AM EDT [facility] PHOSPHORUS INORGANIC <td>PHOSPHORUS</td><td>Timed </td><td>02/28/2021 5:18 AM EDT</td><td></td><td> </td> 02/28/2021 05:18:00 AM EDT [facility] MAGNESIUM <td>MAGNESIUM</td><td>Timed< /td><td>02/28/2021 5:18 AM EDT</td><td></td><td> </td> 02/28/2021 05:18:00 AM EDT [facility] LACTATE DEHYDROGENASE LDH <td>LACTATE DEHYDROGENASE</td><td>Timed</td><td>02/28/2021 5:18 AM EDT</td><td></td><td> </td> 02/28/2021 05:18:00 AM EDT [facility] COMPREHENSIVE METABOLIC PANEL <td>COMPREHENSIVE METABO LIC PANEL</td><td>Timed</td><td>02/28/2021 5:18 AM EDT</td><td></td><td> </td> 02/28/2021 05:18:00 AM EDT [facility] GLUC BLD GLUC MNTR DEV CLEARED FDA SPEC HOME USE <td>P OCT GLUCOSE</td><td>Routine</td><td>02/27/2021 2:32 PM EDT</td><td></td><td> </td> 02/27/2021 02:32:00 PM EDT [facility] BLOOD COUNT COMPLETE AUTO&AUTO DIFRNTL WBC COUNT <td>C BC AND DIFFERENTIAL</td><td>STAT</td><td>02/27/2021 10:43 AM EDT</td><td></td><td> </td> 02/27/2021 10:43:00 AM EDT [facility] URIC ACID BLOOD <td>URIC ACID</td><td>Timed< /td><td>02/27/2021 3:29 AM EDT</td><td></td><td> </td> 02/27/2021 03:29:00 AM EDT [facility] PHOSPHORUS INORGANIC <td>PHOSPHORUS</td><td>Timed </td><td>02/27/2021 3:29 AM EDT</td><td></td><td> </td> 02/27/2021 03:29:00 AM EDT [facility] MAGNESIUM <td>MAGNESIUM</td><td>Timed< /td><td>02/27/2021 3:29 AM EDT</td><td></td><td> </td> 02/27/2021 03:29:00 AM EDT [facility] LACTATE DEHYDROGENASE LDH <td>LACTATE DEHYDROGENASE</td><td>Timed</td><td>02/27/2021 3:29 AM EDT</td><td></td><td> </td> 02/27/2021 03:29:00 AM EDT [facility] COMPREHENSIVE METABOLIC PANEL <td>COMPREHENSIVE METABO LIC PANEL</td><td>Timed</td><td>02/27/2021 3:29 AM EDT</td><td></td><td> </td> 02/27/2021 03:29:00 AM EDT [facility] BLOOD COUNT COMPLETE AUTOMATED <td>CBC</td><td>Routine </td><td>02/26/2021 6:35 AM EDT</td><td></td><td> </td> 02/26/2021 06:35:00 AM EDT [facility] URIC ACID BLOOD <td>URIC ACID</td><td>Timed< /td><td>02/26/2021 6:35 AM EDT</td><td></td><td> </td> 02/26/2021 06:35:00 AM EDT [facility] PHOSPHORUS INORGANIC <td>PHOSPHORUS</td><td>Timed </td><td>02/26/2021 6:35 AM EDT</td><td></td><td> </td> 02/26/2021 06:35:00 AM EDT [facility] MAGNESIUM <td>MAGNESIUM</td><td>Timed< /td><td>02/26/2021 6:35 AM EDT</td><td></td><td> </td> 02/26/2021 06:35:00 AM EDT [facility] LACTATE DEHYDROGENASE LDH <td>LACTATE DEHYDROGENASE</td><td>Timed</td><td>02/26/2021 6:35 AM EDT</td><td></td><td> </td> 02/26/2021 06:35:00 AM EDT [facility] COMPREHENSIVE METABOLIC PANEL <td>COMPREHENSIVE METABO LIC PANEL</td><td>Timed</td><td>02/26/2021 6:35 AM EDT</td><td></td><td> </td> 02/26/2021 06:35:00 AM EDT [facility] URIC ACID BLOOD <td>URIC ACID</td><td>Routin e</td><td>02/25/2021 4:00 PM EDT</td><td></td><td> </td> 02/25/2021 04:00:00 PM EDT [facility] PHOSPHORUS INORGANIC <td>PHOSPHORUS</td><td>Routi ne</td><td>02/25/2021 4:00 PM EDT</td><td></td><td> </td> 02/25/2021 04:00:00 PM EDT [facility] MAGNESIUM <td>MAGNESIUM</td><td>Routin e</td><td>02/25/2021 4:00 PM EDT</td><td></td><td> </td> 02/25/2021 04:00:00 PM EDT [facility] LACTATE DEHYDROGENASE LDH <td>LACTATE DEHYDROGENASE</td><td>Routine</td><td>02/25/2021 4:00 PM EDT</td><td></td><td> </td> 02/25/2021 04:00:00 PM EDT [facility] BASIC METABOLIC PANEL CALCIUM TOTAL <td>BASIC METABOLI C PANEL</td><td>Routine</td><td>02/25/2021 4:00 PM EDT</td><td></td><td> </td> 02/25/2021 04:00:00 PM EDT [facility] URIC ACID BLOOD <td>URIC ACID</td><td>Timed< /td><td>02/25/2021 6:53 AM EDT</td><td></td><td> </td> 02/25/2021 06:53:00 AM EDT [facility] PHOSPHORUS INORGANIC <td>PHOSPHORUS</td><td>Timed </td><td>02/25/2021 6:53 AM EDT</td><td></td><td> </td> 02/25/2021 06:53:00 AM EDT [facility] MAGNESIUM <td>MAGNESIUM</td><td>Timed< /td><td>02/25/2021 6:53 AM EDT</td><td></td><td> </td> 02/25/2021 06:53:00 AM EDT [facility] LACTATE DEHYDROGENASE LDH <td>LACTATE DEHYDROGENASE</td><td>Timed</td><td>02/25/2021 6:53 AM EDT</td><td></td><td> </td> 02/25/2021 06:53:00 AM EDT [facility] COMPREHENSIVE METABOLIC PANEL <td>COMPREHENSIVE METABO LIC PANEL</td><td>Timed</td><td>02/25/2021 6:53 AM EDT</td><td></td><td> </td> 02/25/2021 06:53:00 AM EDT [facility] CT GUIDANCE NEEDLE PLACEMENT <td>CT GUIDED NEEDLE BIOP SY, BONE MARROW AND ASPIRATIONS</td><td>Routine</td><td>02/24/2021 3:28 PM EDT</td><td></td><td> </td> 02/24/2021 03:28:03 PM EDT [facility] BLOOD SMEAR PERIPHERAL INTERP PHYS W/WRIT REPORT <td>L EUKEMIA / LYMPHOMA PHENOTYPE</td><td>Routine</td><td>02/24/2021 3:10 PM EDT</td><td></td><td> </td> 02/24/2021 03:10:00 PM EDT [facility] IAAD EIA HIV-1 AG W/HIV-1&HIV-2 ANTBDY SINGLE <td>HIV 1/2 SCREEN @</td><td>Routine</td><td>02/24/2021 12:27 PM EDT</td><td></td><td> </td> 02/24/2021 12:27:00 PM EDT [facility] ANTIBODY MIRYAM-DAWKINS EB VIRUS VIRAL CAPSID VCA <td>EP MANRIQUE-DAWKINS VIRUS EVAL PANEL</td><td>Routine</td><td>02/24/2021 12:27 PM EDT</td><td></td><td> </td> 02/24/2021 12:27:00 PM EDT [facility] URIC ACID BLOOD <td>URIC ACID</td><td>Add-On </td><td>02/24/2021 12:27 PM EDT</td><td></td><td> </td> 02/24/2021 12:27:00 PM EDT [facility] LACTATE DEHYDROGENASE LDH <td>LACTATE DEHYDROGENASE</t d><td>Add- On</td><td>02/24/2021 12:27 PM EDT</td><td></td><td> </td> 02/24/2021 12:27:00 PM EDT [facility] HEPATIC FUNCTION PANEL <td>HEPATIC FUNCTION PANEL</ td><td>Add- On</td><td>02/24/2021 12:27 PM EDT</td><td></td><td> </td> 02/24/2021 12:27:00 PM EDT [facility] ECHO TTHRC R-T 2D W/WOM-MODE COMPL SPEC&COLR DOP <td>E CHOCARDIOGRAM TRANSTHORACIC</td><td>Routine</td><td>02/24/2021 11:56 AM EDT</td><td></td><td> </td> 02/24/2021 11:56:19 AM EDT [facility] HEPATITIS C ANTIBODY CONFIRMATORY TEST <td>HEPATITIS C ANTIBODY</td><td>Routine</td><td>02/24/2021 7:12 AM EDT</td><td></td><td> </td> 02/24/2021 07:12:00 AM EDT [facility] HEPATITIS B CORE ANTIBODY HBCAB IGM ANTIBODY <td>HEPAT ITIS B CORE ANTIBODY, IGM</td><td>Routine</td><td>02/24/2021 7:12 AM EDT</td><td></td><td> </td> 02/24/2021 07:12:00 AM EDT [facility] HEPATITIS B SURF ANTIBODY HBSAB <td>HEPATITIS B SURFAC E ANTIBODY</td><td>Routine</td><td>02/24/2021 7:12 AM EDT</td><td></td><td> </td> 02/24/2021 07:12:00 AM EDT [facility] IAAD EIA HEPATITIS B SURFACE ANTIGEN <td>HEPATITIS B S URFACE ANTIGEN</td><td>Routine</td><td>02/24/2021 7:12 AM EDT</td><td></td><td> </td> 02/24/2021 07:12:00 AM EDT [facility] BLOOD COUNT AUTOMATED DIFFERENTIAL WBC COUNT <td>MANUA L DIFFERENTIAL</td><td>Routine</td><td>02/24/2021 7:12 AM EDT</td><td></td><td> </td> 02/24/2021 07:12:00 AM EDT [facility] THROMBOPLASTIN TIME PARTIAL PLASMA/WHOLE BLOOD <td>APTT</td><td>Routine</td><td>02/24/2021 7:12 AM EDT</td><td></td><td> </td> 02/24/2021 07:12:00 AM EDT [facility] PROTHROMBIN TIME <td>PROTIME-INR</td><td>Rout ine</td><td>02/24/2021 7:12 AM EDT</td><td></td><td> </td> 02/24/2021 07:12:00 AM EDT [facility] BLOOD COUNT RETICULOCYTE AUTOMATED <td>RETICULOCYTES</td><td>Routine</td><td>02/24/2021 7:12 AM EDT</td><td></td><td> </td> 02/24/2021 07:12:00 AM EDT [facility] BLOOD COUNT COMPLETE AUTOMATED <td>CBC</td><td>Routine </td><td>02/24/2021 7:12 AM EDT</td><td></td><td> </td> 02/24/2021 07:12:00 AM EDT [facility] URIC ACID BLOOD <td>URIC ACID</td><td>Add-On </td><td>02/24/2021 7:12 AM EDT</td><td></td><td> </td> 02/24/2021 07:12:00 AM EDT [facility] PHOSPHORUS INORGANIC <td>PHOSPHORUS</td><td>Routi ne</td><td>02/24/2021 7:12 AM EDT</td><td></td><td> </td> 02/24/2021 07:12:00 AM EDT [facility] MAGNESIUM <td>MAGNESIUM</td><td>Routin e</td><td>02/24/2021 7:12 AM EDT</td><td></td><td> </td> 02/24/2021 07:12:00 AM EDT [facility] LACTATE DEHYDROGENASE LDH <td>LACTATE DEHYDROGENASE</t d><td>Add- On</td><td>02/24/2021 7:12 AM EDT</td><td></td><td> </td> 02/24/2021 07:12:00 AM EDT [facility] HEPATIC FUNCTION PANEL <td>HEPATIC FUNCTION PANEL</ td><td>Add- On</td><td>02/24/2021 7:12 AM EDT</td><td></td><td> </td> 02/24/2021 07:12:00 AM EDT [facility] BASIC METABOLIC PANEL CALCIUM TOTAL <td>BASIC METABOLI C PANEL</td><td>Routine</td><td>02/24/2021 7:12 AM EDT</td><td></td><td> </td> 02/24/2021 07:12:00 AM EDT [facility] BONE MARROW BIOPSY NEEDLE/TROCAR <td>BONE MARROW BIOPS Y AND EXAM</td><td>Routine</td><td>02/24/2021 7:12 AM EDT</td><td></td><td> </td> 02/24/2021 07:12:00 AM EDT [facility] BLOOD COUNT COMPLETE AUTOMATED <td>CBC</td><td>Routine </td><td>02/24/2021 1:04 AM EDT</td><td></td><td> </td> 02/24/2021 01:04:00 AM EDT [facility] BASIC METABOLIC PANEL CALCIUM TOTAL <td>BASIC METABOLI C PANEL</td><td>Routine</td><td>02/24/2021 1:04 AM EDT</td><td></td><td> </td> 02/24/2021 01:04:00 AM EDT [facility] Spirometry 02/16/2021 12:00:00 AM EDT [place] [facility] ([facility], ) OFFICE OUTPATIENT VISIT 25 MINUTES 02/16/2021 12:00:00 AM EDT [facility] ([facility], ) Endoscopy Nasal/Sinus Surgical W/BX/Polypectomy/Debridement 02/13/2021 12:00:00 AM EDT [facility] ([facility] Tympanostomy, General Anesthesia 02/13/2021 12:00:00 A M EDT [facility] ([facility], ) Nasopharyngoscopy W/Endoscope 02/01/2021 12:00:00 AM E DT [facility] ([facility], ) OFFICE OUTPATIENT VISIT 25 MINUTES 02/01/2021 12:00:00 AM EDT [facility] ([facility], ) Nasopharyngoscopy W/Endoscope 01/25/2021 12:00:00 AM E DT [facility] ([facility], ) OFFICE OUTPATIENT NEW 45 MINUTES 01/25/2021 12:00:00 A M EDT [facility] ([facility], ) Tympanometry & reflex threshold measurements Tympanome try & reflex threshold measurements 01/17/2021 12:00:00 AM EDT [place] ([facility]) Tympanometry & reflex threshold measurements Tympanome try & reflex threshold measurements 12/29/2020 12:00:00 AM EDT [place] ([facility]) REMOVE CERUMEN (w/INSTRUMENT) REMOVE CERUMEN (w/INSTRUMENT) 12/29/2020 12:00:00 AM EDT [place] ([facility]) DUPLEX SCAN EXTRACRANIAL ART COMPL BI STUDY 08/05/2020 12:00:00 AM [place] ([facility]) Annual wellness visit, includes a person alized prevention plan of service (pps), subsequent visit MEDICARE ANNUAL WELLNESS VISIT (SUBSEQUENT) 07/19/2020 12:00:00 AM EST [place] ([facility]) URINALYSIS NONAUTO W/O SCOPE (waived laboratory) URINA LYSIS NONAUTO W/O SCOPE (waived laboratory) 06/09/2020 12:00:00 AM EDT [place] ([facility]) Results ID Date Data Source [id number] 07/26/2021 09:40:00 AM [facility] Name Value Range Interpretation Code Description Data Che rce(s) Supporting Document(s) CBC W/AUTOMATED DIFF [facility] COMPLETE BLOOD COUNT Leukocytes [#/volume] in Blood by Automated count 4.8 10^3/uL 4.2 - 1 1.0 [facility] Erythrocytes [#/volume] in Blood by Automated count 2.43 10^6/uL 4. 20 - 5.40 L [facility] Hemoglobin [Mass/volume] in Blood 7.9 g/dL 12.0 - 16.0 L [facility] Hematocrit [Volume Fraction] of Blood by Automated count 24.4 % 3 7.0 - 47.0 L [facility] Erythrocyte mean corpuscular volume [Entitic volume] b y Automated count 100.4 fL 81.0 - 101 [facility] Erythrocyte mean corpuscular hemoglobin [Entitic mass] by Automated count 32.5 pg 27.0 - 34.0 [facility] Erythrocyte mean corpuscular hemoglobin concentration [Mass/volume] by Automated count 32.4 g/dL 31.0 - 36.0 [facility] Erythrocyte distribution width [Ratio] by Automated count 18.1 % 11.5 - 14.5 H [facility] Platelets [#/volume] in Blood by Automated count 22 10^3/uL 150 - 450 L [facility] Platelet mean volume [Entitic volume] in Blood by Automated count 11.8 fL 7.4 - 10.4 H [facility] Neutrophils/100 leukocytes in Blood by Automated count 79.4 % 37. 0 - 80.0 [facility] Lymphocytes/100 leukocytes in Blood by Manual count 4.6 % 25.0 - 40.0 L [facility] Monocytes/100 leukocytes in Blood by Automated count 13.1 % 3.0 - 8.0 H [facility] Eosinophils/100 leukocytes in Blood by Automated count 0.2 % 0.0 - 7.0 [facility] Basophils/100 leukocytes in Blood by Automated count 0.2 % 0.0 - 2.5 [facility] %IG 2.5 % 0.0 - 0.0 H [facility] %NRBC 1.1 % 0.0 - 0.0 H [facility] al Neutrophils [#/volume] in Blood by Automated count 3.77 10^3/uL 2.00 - 6.90 [facility] Lymphocytes [#/volume] in Blood by Automated count 0.22 10^3/uL 0.60 - 3.40 L [facility] Monocytes [#/volume] in Blood by Automated count 0.62 10^3/uL 0.00 - 0.90 [facility] Eosinophils [#/volume] in Blood by Automated count 0.01 10^3/uL 0.00 - 0.70 [facility] Basophils [#/volume] in Blood by Automated count 0.01 10^3/uL 0.00 - 0.20 [facility] #IG 0.12 10^3/uL 0.00 - 0.10 H [facility] #NRBC 0.05 10^3/uL 0.00 - 0.00 H [facility] MANUAL DIFF NOT INDICATED [facility]is[facility] [Presence] in Blood by Light microscopy 1+ MARY ELLEN L: NONE SEEN A [facility] Polychromasia [Presence] in Blood by Light microscopy 1+ NORM AL: NONE SEEN A [facility] { SICKLE CELL (NORMAL: NONE SEEN ) Platelet adequacy [Presence] in Blood by Light microscopy DE CREASED NORMAL: NORMAL A [facility] COMMENT: ID Date Data Source [id number] 07/26/2021 09:17:00 AM EST [facility] Name Value Range Interpretation Code Description Data Che rce(s) Supporting Document(s) COMPREHENSIVE METABOLIC PANEL [facility] COMPREHENSIVE METABOLIC PANEL Sodium [Moles/volume] in Serum or Plasma 143 mEq/L 134 - 153 [facility] Potassium [Moles/volume] in Serum or Plasma 2.8 mEq/L 3.6 - 5.0 LL [facility] CALL/ READ BACK AJAY LUCAS [place] H[facility] ONC [facility] BY: KIMBERLY [facility] DATE/TIME [phone] [facility] Chloride [Moles/volume] in Serum or Plasma 103 mEq/L 98 - 107 [facility] Carbon dioxide, total [Moles/volume] in Serum or Plasma 33 MEQ/L 22 - 30 H [facility] Glucose [Mass/volume] in Serum or Plasma 87 MG/DL 70 - 99 [facility] BUN 21 MG/DL 7 - 21 [facility] al Creatinine [Mass/volume] in Serum or Plasma 0.5 MG/DL 0.7 - 1.5 L [facility] BUN/CREAT 42 8 - 27 H [facility] al Protein [Mass/volume] in Serum or Plasma 4.9 G/DL 6.3 - 8.2 L [facility] Albumin [Mass/volume] in Serum or Plasma 3.7 G/DL 3.9 - 5.0 L [facility] Globulin [Mass/volume] in Serum by calculation 1.2 GM/DL 2.4 - 3.2 L [facility] A/G RATIO 3.1 0.8 - 2.0 H [facility] Calcium [Mass/volume] in Serum or Plasma 9.4 MG/DL 8.4 - 10.2 [facility] Bilirubin.total [Mass/volume] in Serum or Plasma 0.9 MG/DL 0.2 - 1.3 [facility] Alkaline phosphatase [Enzymatic activity/volume] in Serum or Plasma 45 U/L 38 - 126 [facility] Aspartate aminotransferase [Enzymatic activity/volume] in Serum or Plasma 24 U/L 5 - 40 [facility] Alanine aminotransferase [Enzymatic activity/volume] in Seru m or Plasma 13 U/L 7 - 56 [facility] Anion gap 3 in Serum or Plasma 7.0 mmol/L 8.0 - 16.0 L [facility] AGE 76 yrs [facility] al NON-AA GFR >60 mL/min [facility] ital AFR AMER GFR >60 [facility] Male GFR In terprentation 20-49 yrs >60 mL/min Normal 50-59 yrs >56 mL/min Normal 60-69 yrs >49 mL/min Normal 70-79yrs >42 mL/min Normal 80 and above >35 mL/min Normal Female GFR Interpretation 20-39 yrs >60 mL/min Normal 40-49 yrs >58 mL/min Normal 50-59 yrs >51 mL/min Normal 60-69 yrs >45 mL/min Normal 70-79 yrs >39 mL/min Normal 80 and above >32 mL/min Normal ID Date Data Source [id number] 07/24/2021 04:30:18 PM EST [facility] INFORMATIONPatient MRN Name Date of Age Gend*PT [id number] Beatriz Castaneda 1945 76 years F IPPT Location Admission Date/Time Visit ID Attending [id number] 07/15/21 1419 --- --- EPI ID CSN Admitting Prov ider [id number] Jonathan Sheets MD([id number]) Attestation signed by Antonio Mcmahon MD at 07/24/2021 4:30 PMPatient seen and examined independently. Case discussed with nursepractitioner at great length. Patient has done remarkably well during herinitial hospitalization. She has been treated for colitis and bacteremia withCipro and Flagyl. She will complete a 14-day course. She was followed byoncology for history. Her blood counts including her neutropenia has improved. Her platelet count is slowly improving but has lagged a little bit. She doeshave follow-up appointment with her oncologist office this week. 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 She has been treatedmedically and will need to follow-up with Dr. Martinez. Cardiology did place anita increased dose of beta-blockers, Lasix and Entresto. Patient's bloodpressures were low normal. In the setting of low platelets have decided atthis time to hold her Entresto. Can consider further work-up and restart inthe outpatient setting. Agree with discharge note and plan of care by RAYMON Whelan -------- [facility] DISCHARGE SUMMARYPatient Name: Beatriz Castaneda of : 1945 Age 76 yearsPrimary Physician: VLADISLAV OSORIO MD PCP Fmpoiloqm Date: 07/15/2021 Discharge Date: 07/24/21Christina will be discharged from [facility] Diagnoses:Principal Problem: SepsisActive Problems: Hypertension Diffuse large B cell lymphoma GERD (gastroesophageal reflux disease) Neutropenic fever Pancytopenia Severe protein-calorie malnutrition Coronary artery disease Gram-negative bacteremia Colitis Right lower lobe pneumonia Hx of CABG Ischemic cardiomyopathy Acute combined systolic (congestive) and diastolic (congestive) heart failure TachypneaDischarge Medications:Current Discharge Medication ListSTART taking these medications Detailsciprofloxacin (CIPRO) 500 MG tablet Take 1 tablet (500 mg total) by mouth 2(two) times a day for 5 daysQty: 10 tablet, Refills: 0furosemide (LASIX) 20 MG tablet Take 1 tablet (20 mg total) by mouth everymorningQty: 30 tablet, Refills: 1metoprolol succinate (TOPROL-XL) 50 MG 24 hr tablet Take 1 tablet (50 mg total)by mouth dailyQty: 30 tablet, Refills: 1metroNIDAZOLE (FLAGYL) 500 MG tablet Take 1 tablet (500 mg total) by mouth 2(two) times a day for 5 daysQty: 10 tablet, Refills: 0nystatin (MYCOSTATIN) 817010 UNIT/ML suspension Take 5 mL (500,000 Units total)by mouth 4 (four) times a day for 4 daysQty: 60 mL, Refills: 0predniSONE (DELTASONE) 10 MG tablet Take 4 tablets (40 mg total) by mouth dailyfor 2 days, THEN 3 tablets (30 mg total) daily for 2 days, THEN 2 tablets (20 mgtotal) daily for 2 days, THEN 1 tablet (10 mg total) daily for 2 days.Qty: 20 tablet, Refills: 0CONTINUE these medications which have NOT CHANGED Detailsacetaminophen (TYLENOL) 325 MG tablet Take 2 tablets (650 mg total) by mouthevery 4 (four) hours as needed (mild pain)Qty: 30 tablet, Refills: 0acyclovir (ZOVIRAX) 200 MG capsule Take 400 mg by mouth 2 (two) times a dayfamotidine (PEPCID) 20 MG tablet Take 20 mg by mouth nightlyfenofibrate (LOFIBRA) 160 MG tablet Take 160 mg by mouth dailyomeprazole (PriLOSEC) 20 MG capsule Take 20 mg by mouth dailyondansetron (ZOFRAN-ODT) 4 MG disintegrating tablet Take 4 mg by mouth every 6(six) hours as needed for nauseapregabalin (LYRICA) 75 MG capsule Take 1 capsule (75 mg total) by mouth 2 (two)times a day Max Daily Amount: 150 mgQty: 60 capsule, Refills: 11senna-docusate (PERICOLACE) 8.6-50 MG Take 2 tablets by mouth nightlyQty: 60 tablet, Refills: 1simvastatin (ZOCOR) 20 MG tablet Take 20 mg by mouth nightlyvitamin D, Ergocalciferol, 1.25 MG (32333 UT) CAPS Take 1 capsule by mouth every30 (thirty) days I capsule 1st of the month PMlidocaine Viscous HCl (XYLOCAINE) 2 % solution Take 5 mL by mouth as needed forpainSTOP taking these medications metoprolol tartrate (LOPRESSOR) 25 MG tablet sulfamethoxazole- trimethoprim (BACTRIM DS,SEPTRA DS) 800-160 MG per tabletFollow Up Instructions:The patient was given an after visit summary.Patient will follow up with VLADISLAV OSORIO MD in 5-7 days.Patient will follow up with Dr. Barnes in 10-14 days.Items needing special attention:Malnutrition CriteriaCode Type: Moderate-Chronic ( E44.0)Moderate-Chronic Criteria: Weight Loss 10%/6mos, Mild Muscle Mass DepletionShe will be discharged on Cipro and Flagyl which will end on 07/29, after havingcompleted a full 14-day course.Brief Hospital Course:Patient is a 76-year-old female with PMH of HTN, lymphoma, HLD, diffuse largeB-cell lymphoma, CAD who presents to the hospital on 07/15 with complaints ofshortness of breath. She does receive intrathecal chemotherapy and follows withDr. Barnes for oncology. She incidentally also began noticing a fever soshe presented to the ED for evaluation. She was found to be tachypneic, hypotensive, and tachycardic. A CXRwas unremarkable. She then had a CT which was concerning for inferior lateralright lower lobe infiltrate. She is also complaining of abdominal pain so shehad a CT of the abdomen pelvis which was concerning for mild thickening of theposterior cecum and proximal ascending colon which could be colitis. Labs werealso remarkable for a WBC of 0.2, H&H 6.2/17.9, platelet 8. Blood cultures wereobtained. She was initiated on Flagyl, cefepime, and Vanco. She was transfusedwith 3 units of PRBC and 3 units of platelets. Oncology was consulted forevaluation. She was placed in the PCU due to significant hypotension resultingin a rapid response. Guaiac was positive, but her H&H remained stable aftertransfusions. She can be discharged home with her PPI. She did have an elevated troponin. Echo was concerning for hypokinesis of theapical inferior, and apex. Cardiology was consulted and believe this was a typeII WA. She began treatment with Lasix and Entresto, unfortunately she developedhypotension so the Entresto was held. She will need to follow-up withcardiology in the OP setting to have this restarted.Blood cultures were positive for Enterobacter Cloacae. She was transitioned tooral Cipro and Flagyl which she will continue for a total of 14 days frominitiation of antibiotic treatment. She also developed thrush so she will bedischarged wi th nystatin.Her breathing eventually improved and she was weaned off oxygen. She was onprednisone which will be tapered in the OP setting. She will need to follow-upwith her primary oncologist for further treatment. Her hospitalization wascomplicated with thrombocytopenia requiring multiple transfusions of platelets.At this time she does remain thrombocytopenic, but can follow-up in the OPsetting for further testing. She will need to monitor for any signs or symptomsof bleeding. All questions were answered and she is agreeable with the currentplan. She is medically optimized can be discharged home today.Discharge Exam:Blood Pressure: BP: 123/73 Pulse: Heart Rate: 84Temperature: Temp: 97.3 F Respirations: Resp: 18Admission Weight: Weight: 54.4 kg (119 lb 14.9 oz) O2 Saturation: SpO2: 95 %Discharge Weight: Weight: 51.5 kg (113 lb 9.6 oz) BMI: Body mass index is 20.78kg/m .Physical Exam General alert, cooperative, pleasant HEENT Normal, NCAT Lungs fine crackles to the RLL Heart regular rate and rhythm Abdomen soft, non-tender, non-distended, no organomegaly or masses Musculoskeletal negative Neuro normal without focal findings and mental status, speech normal, alertand oriented [id number]:Imaging:Echo Transthoracic (TTE)Result Date: 07/16/2021 The following segments are hypokinetic: apical inferior and apex. Leftventricular ejection fraction is decreased. Estimated ejection fraction 45 to50% There is mild mitral valve leaflet thickening. Mild mitral insufficiency Sclerotic aortic valve without stenosis or insufficiency Normal pulmonaryartery pressures Definity was required to adequately image the left ventricleCT angiogram chestResult Date: 07/15/2021[place] [address] Patient Name: Beatriz Montes De Oca : 1945 Sex: F Ordering Provider: Jorge Hopkins Authorizing Prov:Jorge Hopkins Referring Provider: Procedure Performed: CT ANGIOGRAM CHEST ExamDate: 07/15/2021 19:16 Accession Number: [id number] PatientClass: PROCEDURE INFORMATION: Exam: CTA Chest WithContrast Exam date and time: 07/15/2021 7:16 PM Age: 76 years old Clinicalindication: Shortness of breath; PE suspected, high prob TECHNIQUE: Imagingprotocol: Computed tomographic angiography of the chest with contrast. 3Drendering (Not supervised by radiologist): MIP and/or 3D reconstructed imageswere created by the technologist. Radiation optimization: [facility] use at least one of these dose optimization techniques: automatedexposure control; mA and/or kV adjustment per patient size (includes targetedexams where dose is matched to clinical indication); or iterativereconstruction. Contrast material: ISOVUE 370; Contrast volume: 70 ml; Contrastroute: INTRAVENOUS (IV); COMPARISON: CR XR CHEST PORTABLE 07/15/2021 2:32 PMFINDINGS: Pulmonary arteries: No evidence of pulmonary embolism. Aorta: Normalcaliber thoracic aorta without dissection or aneurysm. Lungs: Infiltrate withinthe inferolateral right lower lobe. Minimal atelectasis within the posteriorright lower lobe. Pleural spaces: No pleural fluid collection. No pneumothorax.Heart: No right ventricular strain. No pericardial effusion. Lymph nodes: Noenlarged lymph nodes. Gallbladder and bile ducts: Cholelithiasis. Bones/joints:T6 vertebral body old severe compression fracture. Soft tissues: Unremarkable.IMPRESSION: 1. No evidence of pulmonary embolism. 2. Infiltrate within theinferolateral right lower lobe. 3. Minimal atelectasis within the posteriorright lower lobe. Report electronically signed by: ABDULKADIR REBOLLEDO MD on07/15/2021 20:56:07CT abdomen pelvis with IV contrastResult Date: 07/15/2021[place] [address] Patient Name: Beatriz Montes De Oca : 1945 Sex: F Ordering Provider: Jorge Hopkins Authorizing Prov:Jorge Hopkins Referring Provider: Procedure Performed: CT ABDOMEN PELVIS WCONTRAST Exam Date: 07/15/2021 19:16 Patient Class: PROCEDURE INFORMATION: Exam:CT Abdomen And Pelvis With Contrast Exam date and time: 07/15/2021 7:16 PM Age: 76 years old Clinical indication: Acute abdominal pain, nonlocalized TECHNIQUE:Imaging protocol: Computed tomography of the abdomen and pelvis with contrast.Radiation optimization: All CT scans at this facility use at least one of thesedose optimization techniques: automated exposure control; mA and/or kVadjustment per patient size (includes targeted exams where dose is matched toclinical indication); or iterative reconstruction. Contrast material: [id number]; Contrast volume: 70 ml; Contrast route: INTRAVENOUS (IV); COMPARISON: CTABDOMEN PELVIS W CONTRAST 03/10/2021 8:39 AM FINDINGS: Lungs: Please refer to CTAchest report dated 07/15/2021 for additional information. Liver: Normal. [place]. Gallbladder and bile ducts: Cholelithiasis, otherwise normal gallbladder.No biliary tract dilatation. Pancreas: Normal. No ductal dilation. Spleen:Normal. No splenomegaly. Adrenal glands: Normal. No mass. Kidneys and ureters:No hydronephrosis. Non-obstructing calcified stone upper pole left kidney. Noperinephric fluid. Stomach and bowel: Mild wall thickening of the posteriorcecum and proximal ascending colon which may reflect a focal colitis. Nogeneralized ileus or bowel obstruction. Appendix: Normal appendix.Intraperitoneal space: No free air. No significant fluid collection.Vasculature: Unremarkable. No abdominal aortic aneurysm. Lymph nodes:Unremarkable. No enlarged lymph nodes. Urinary bladder: Unremarkable asvisualized. Reproductive: Atrophic uterus and ovaries. Bones/joints: Old mildloss of height of the L1 vertebral body. Soft tissues: Unremarkable.IMPRESSION: 1. Mild wall thickening of the posterior cecum and proximalascending colon which may reflect a focal colitis. 2. No hydronephrosis.Non-obstructing calcified stone upper pole left kidney. 3. Cholelithiasis,otherwise normal gallbladder. No biliary tract dilatation. Report electronicallysigned by: ABDULKADIR REBOLLEDO MD on 07/15/2021 21:08:10X-ray chest portableResult Date: 07/18/2021[place] [address] Patient Name: BEATRIZ MONTES DE OCA : 1945 Sex: F Ordering Provider: EDENILSON TRINH AuthorizingProv: EDENILSON TRINH Referring Provider: Procedure Performed: / XR CHESTPORTABLE Exam Date: 07/18/2021 02:45 Patient Class: Inpatient Reason for Exam: sobTechnique: AP portable view obtained. Comparison: July 15, 2021 and February. Findings: Lung volumes are low bilaterally. Single lumen port seen on theleft with the tip of the catheter in the SVC. No pleural effusion orpneumothorax is seen. There are now patchy areas of airspace disease seen in theleft perihilar region and right upper lobe. Sternotomy wires. Mediastinalsurgical clips. Multiple surgical clips upper abdomen.IMPRESSION: Patchy areas of airspace disease seen bilaterally in the leftperihilar region and right upper lobe. Findings may represent pneumonia. Reportelectronically signed by: ASHLEIGH ROE On 07/18/2021 8:20 AM Workstation ID:[id number] portableResult Date: 07/15/2021[place] [address] Patient Name: BEATRIZ MONTES DE OCA : 1945 Sex: F Ordering Provider: JANKI MAJOR AuthorizingProv: JANKI MAJOR Referring Provider: Procedure Performed: / XR CHESTPORTABLE Exam Date: 07/15/2021 14:44 Patient Class: Emergency Reason for Exam:sepsis, weakness Technique: Single AP view obtained. Comparison: Most recent03/09/2021 Findings: Previous midline sternotomy. Left chest wall pacing devicewith tip of single lead overlying the right atrial SVC junction. No acute lungdisease. No pleural effusions or pneumothorax. Cardiac and mediastinalsilhouettes within normal limits. There are diffuse degenerative changes of thespine. Chronic deformity right humeral neck compatible with old healed fracture.IMPRESSION: No acute lung disease and no significant interval changes. Reportelectronically signed by: JOURDAN STACK On 07/15/2021 4:26 PM WorkstationID: [id number] lumbar puncture w/ chemo injectionResult Date: 07/05/2021[place] [address] Patient Name: BEATRIZ MONTES DE OCA : 1945 Sex: F Ordering Provider: JACQUELINE MATHUR AuthorizingProv: JACQUELINE MATHUR Referring Provider: Procedure Performed: / IR LUMBARPUNCTURE WITH CHEMO INJECTION Exam Date: 07/05/2021 14:35 AccessionNumber: [id number] Patient Class: Outpatient Reason forExam: Diffuse large b-cell lymphoma, lymph nodes of head, face, and neckTechnique: Fluoroscopy spot image obtained Comparison: None Findings: FINDINGS:After the risks and benefits of the procedure were explained to the patient,informed consent was obtained. Risks include but are not limited to bleeding,infection, nerve injury, and spinal headache. 1% LIDOCAINE was used for localanesthesia. The patient was sterilely prepped and draped. Using fluoroscopicguidance, a 20-gauge spinal needle was advanced into the CSF space at the L5-A4htbpu. CSF was seen exiting the needle hub. A total of 9 mL of clear CSF wascollected into 4 separate vials. METHOTREXATE 12 mg was then slowly injectedintrathecally. The needle was removed and a Band-Aid was a pplied. This exam wasperformed by LUCAS Cisneros under the direct supervision of Dr MannComplications: None.IMPRESSION: Status post successful lumbar puncture and METHOTREXATE intrathecalinjection. Report electronically approved by: LUCAS Cisneros On 07/05/2021 2:54PM The procedure described above was performed under my supervision and I agreewith this report Report electronically signed by: GLADIS MANN On07/05/2021 3:27 PM Workstation ID: [id number]:noneConsultants:Hematology, cardiologyRecent Labs:Cardiac:Lab ResultsComponent Value Date TROPONINI 0.81 (H) 07/16/2021 PO CTROP 0.09 (H) 07/15/2021 PROBNP 2,736 (H) 07/16/2021BC with Diff:Lab ResultsComponent Value Date WBC 5.8 07/24/2021 RBC 2.42 (L) 07/24/2021 HGB 7.8 (L) 07/24/2021 HCT 23.1 (L) 07/24/2021 MCV 95.2 (H) 07/24/2021 MCH 32.1 (H) 07/24/2021 MCHC 33.7 07/24/2021 RDW 17.7 (H) 07/24/2021 PLT 19 (LL) 07/24/2021 MPV 8.7 07/24/2021 LYMPHOPCT 3.0 (L) 07/20/2021 MONOPCT 7.0 07/20/2021 EOSPCT 28.0 (H) 07/16/2021 BASOPCT 10.0 (H) 07/15/2021 NEUTROABS 5.5 07/20/2021 MONOABS 0.5 07/20/2021 BASOSABS 0.0 07/15/2021MP:Lab ResultsComponent Value Date NA 144 07/22/2021 K 3.8 07/22/2021 CL 104 07/22/2021 CO2 35 (H) 07/22/2021 ANIONGAP 5 (L) 07/22/2021 BUN 29 (H) 07/22/2021 CREATININE 0.57 (L) 07/22/2021 BCR 50.9 (H) 07/22/2021 GLU 133 (H) 07/22/2021 CALCIUM 8.8 07/22/2021 ALBUMIN 2.9 (L) 07/18/2021 GLOB 2.7 07/18/2021 AGRC 1.1 07/18/2021 ALKPHOS 51 07/18/2021 LABBILI 1.1 (H) 07/18/2021 AST 11 07/18/2021 ALT 18 07/18/2021 GFRAA >60 07/22/2021 GFRNONAA >60 07/22/2021oags:Lab ResultsComponent Value Date PROTIME 11.7 07/20/2021 INR 1.11 07/20/2021 APTT 22.5 07/20/2021 FIBRINOGEN 184 07/20/2021ultures:Blood:Results for orders placed or performed during the hospital encounter of 07/15/21Blood Culture x 1 Set (2 bottles aerobic and anaerobic) Specimen: PeripheralResult Value Ref Range Specimen Description PERIPHERAL Special Requests NONE Culture Result NO GROWTH 5 DAYS Report Status 07/21/2021 FINALUrinalysis:Lab ResultsComponent Value Date COLORU JODIE 07/15/2021 SPECGRAV 1.020 07/15/2021 GLUCOSEU NEGATIVE 07/15/2021 KETONESU NEGATIVE 07/15/2021 BLOODU NEGATIVE 07/15/2021 NITRITE NEGATIVE 07/15/2021 LEUKOCYTESUR TRACE (A) 07/15/2021 PROTEINUA TRACE (A) 07/15/2021 BILIRUBINUR NEGATIVE 07/15/2021 UROBILINOGEN 0.2 07/15/2021 RBCU 4.0 (H) 07/15/2021 APU CLOUDY 07/15/2021tepforeign Clement, NP11:51 AMTotal time spent for discharge on date of discharge: 35 minutes Name Value Range Interpretation Code Description Data Che rce(s) Supporting Document(s) ID Date Data Source [id number] 07/24/2021 10:09:32 AM EST [facility] Name Value Range Interpretation Code Description Data Che rce(s) Supporting Document(s) WBC 5.8 10*3/uL (4.1-11.0) [facility] [place] 2 NRBC SEEN ON SCAN RBC 2.42 10*6/uL (4.00-5.40) L [facility] HGB 7.8 g/dL (12.0-16.0) L [facility] HCT 23.1 % (36.0-47.0) L [facility] MCV 95.2 fL (80.0-95.0) H [facility] MCH 32.1 pg (27.0-32.0) H [facility] MCHC 33.7 g/dL (32.0-36.0) [facility] RDW 17.7 % (10.5-14.5) [facility] PLT 19 10*3/uL (150-450) L [facility] ALERTED CRITICAL RESULT TOT[place] [id number] 6 3.2 35737 [id number] [id number] MPV 8.7 fL (7.1-10.7) [facility] ID Date Data Source [id number] 07/23/2021 08:55:24 AM EST [facility] Name Value Range Interpretation Code Description Data Che rce(s) Supporting Document(s) WBC 5.1 10*3/uL (4.1-11.0) [facility] [place] RBC 2.46 10*6/uL (4.00-5.40) L [facility] HGB 8.1 g/dL (12.0-16.0) L [facility] HCT 23.3 % (36.0-47.0) L [facility] MCV 95.0 fL (80.0-95.0) [facility] MCH 32.9 pg (27.0-32.0) H [facility] MCHC 34.6 g/dL (32.0-36.0) [facility] RDW 17.3 % (10.5-14.5) [facility] PLT 14 10*3/uL (150-450) L [facility] ALERTED CRITICAL RESULT TOBRIANA ([id number] 1) [place] [address] AT 0852 ON 07/23/21 [place] [id number] MPV 8.9 fL (7.1-10.7) [facility] ID Date Data Source [id number] 07/22/2021 03:42:11 PM EST [facility] Name Value Range Interpretation Code Description Data Che rce(s) Supporting Document(s) SODIUM 144 mmol/L (136-145) [facility] POTASSIUM 3.8 mmol/L (3.6-5.2) [facility] CHLORIDE 104 mmol/L (100-108) [facility] CO2 35 mmol/L (22-31) H [facility] ANION GAP 5 mmol/L (7-16) L [facility] UREA NITROGEN 29 mg/dL (7-24) H [facility] CREATININE 0.57 mg/dL (0.60-1.00) L [facility] BUN/CREAT RATIO 50.9 RATIO (10.0-20.0) [facility] GLUCOSE 133 mg/dL (70-99) H [facility] CALCIUM 8.8 mg/dL (8.4-10.2) [facility] GFR >60 ml/min/1.73m2 (>59) [facility] GFR ( AMER) >60 ml/min/1.73m2 (>59) [facility] GFR INTERPRETATION [facility] --NORMAL KIDNEY FUNCTION OR MILD DISEASE - GFR >OR= 60CHRONIC KIDNEY DISEASE - GFR 15 - 59RENAL FAILURE - GFR <15 Est. GFR calculation based on the MDRDstudy equation, which assumes a steadystate for creatinine. Est. GFR should notbe used for medication dosing. ID Date Data Source [id number] 07/22/2021 09:49:40 AM EST [facility] Name Value Range Interpretation Code Description Data Che rce(s) Supporting Document(s) WBC 4.6 10*3/uL (4.1-11.0) [facility] [place] RBC 2.65 10*6/uL (4.00-5.40) L [facility] HGB 8.4 g/dL (12.0-16.0) L [facility] HCT 24.9 % (36.0-47.0) L [facility] MCV 94.0 fL (80.0-95.0) [facility] MCH 31.8 pg (27.0-32.0) [facility] MCHC 33.8 g/dL (32.0-36.0) [facility] RDW 17.7 % (10.5-14.5) H [facility] PLT 16 10*3/uL (150-450) L [facility] ALERTED CRITICAL RESULT SHELLYRENNA ([id number] 1) ON 3.2 ON 07.22. AT 0947 [place] [address] MPV 8.5 fL (7.1-10.7) [facility] ID Date Data Source [id number] 07/21/2021 10:58:32 AM EST [facility] Name Value Range Interpretation Code Description Data Che rce(s) Supporting Document(s) WBC 5.8 10*3/uL (4.1-11.0) [facility] [place] RBC 2.69 10*6/uL (4.00-5.40) L [facility] HGB 8.6 g/dL (12.0-16.0) L [facility] HCT 25.2 % (36.0-47.0) L [facility] MCV 93.6 fL (80.0-95.0) [facility] MCH 31.9 pg (27.0-32.0) [facility] MCHC 34.1 g/dL (32.0-36.0) [facility] RDW 17.4 % (10.5-14.5) H [facility] PLT 22 10*3/uL (150-450) L [facility] MPV 8.6 fL (7.1-10.7) [facility] ID Date Data Source [id number] 07/20/2021 04:53:40 PM EST [facility] Name Value Range Interpretation Code Description Data Che rce(s) Supporting Document(s) APTT 22.5 s (22.0-34.3) [facility] ID Date Data Source [id number] 07/20/2021 04:53:40 PM EST [facility] Name Value Range Interpretation Code Description Data Che rce(s) Supporting Document(s) PT 11.7 s (9.2-11.9) [facility] [place] INR 1.11 [facility] [place] SUGGESTED THERAPEUTIC RANGES USING INR F ORSTABILIZED ANTICOAGULATED PATIENTS:STANDARD DOSE THERAPY INR 2.0-3.0 DVT, PE, PREVENT DVT OR EMBOLISMHIGH DOSE THERAPY INR 2.5-3.5 PREVENT EMBOLISM FROM MECHANICAL HEART VALVE ID Date Data Source [id number] 07/20/2021 04:53:40 PM EST [facility] Name Value Range Interpretation Code Description Data Che rce(s) Supporting Document(s) FIBRINOGEN 184 mg/dL (150-450) [facility] [place] ID Date Data Source [id number] 07/20/2021 04:53:40 PM EST [facility] Name Value Range Interpretation Code Description Data Che rce(s) Supporting Document(s) D-DIMER,SENSITIVE 1.90 mg/L (<0.50) H [facility] [place] ID Date Data Source [id number] 07/20/2021 11:52:21 AM EST [facility] Name Value Range Interpretation Code Description Data Che rce(s) Supporting Document(s) WBC 6.5 10*3/uL (4.1-11.0) [facility] [place] RBC 2.75 10*6/uL (4.00-5.40) L [facility] HGB 8.8 g/dL (12.0-16.0) L [facility] HCT 25.8 % (36.0-47.0) L [facility] MCV 93.9 fL (80.0-95.0) [facility] MCH 32.0 pg (27.0-32.0) [facility] MCHC 34.1 g/dL (32.0-36.0) [facility] RDW 17.7 % (10.5-14.5) [facility] PLT 30 10*3/uL (150-450) L [facility] MPV 8.3 fL (7.1-10.7) [facility] NEUT % 85.0 % (35.0-75.0) [facility] BAND % 2.0 % (0.0-11.0) [facility] LYMPH % 3.0 % (16.0-52.0) L [facility] MONO % 7.0 % (0.0-8.0) [facility] META % 2.0 % (0.0) H [facility] MYELO % 1.0 % (0.0) H [facility] NEUT # 5.5 10*3/uL (1.8-7.7) [facility] BAND # 0.1 10*3/uL [facility] LYMPH # 0.2 10*3/uL (1.2-4.8) L [facility] MONO # 0.5 10*3/uL (0.0-0.8) [facility] META # 0.1 10*3/uL (0.0) H [facility] MYELO # 0.1 10*3/uL (0.0) H [facility] TOXIC 2+ [facility] ANISO 1+ [facility] POIK 1+ [facility] POLY 1+ [facility] OVALO 1+ [facility] RBC FRAGMENTS 1+ [facility] ID Date Data Source [id number] 07/20/2021 08:02:36 AM EST [facility] Name Value Range Interpretation Code Description Data Che rce(s) Supporting Document(s) MAGNESIUM 2.0 mg/dL (1.7-2.4) [facility] ID Date Data Source [id number] 07/20/2021 08:02:36 AM EST [facility] Name Value Range Interpretation Code Description Data Che rce(s) Supporting Document(s) SODIUM 146 mmol/L (136-145) H [facility] POTASSIUM 3.8 mmol/L (3.6-5.2) [facility] CHLORIDE 109 mmol/L (100-108) H [facility] CO2 31 mmol/L (22-31) [facility] ANION GAP 6 mmol/L (7-16) L [facility] UREA NITROGEN 28 mg/dL (7-24) H [facility] CREATININE 0.59 mg/dL (0.60-1.00) L [facility] BUN/CREAT RATIO 47.5 RATIO (10.0-20.0) [facility] GLUCOSE 140 mg/dL (70-99) H [facility] CALCIUM 9.2 mg/dL (8.4-10.2) [facility] GFR >60 ml/min/1.73m2 (>59) [facility] GFR ( AMER) >60 ml/min/1.73m2 (>59) [facility] GFR INTERPRETATION [facility] --NORMAL KIDNEY FUNCTION OR MILD DISEASE - GFR >OR= 60CHRONIC KIDNEY DISEASE - GFR 15 - 59RENAL FAILURE - GFR <15 Est. GFR calculation based on the MDRDstudy equation, which assumes a steadystate for creatinine. Est. GFR should notbe used for medication dosing. ID Date Data Source [id number] 07/19/2021 05:12:53 PM EST [facility] Name Value Range Interpretation Code Description Data Che rce(s) Supporting Document(s) POTASSIUM 3.8 mmol/L (3.6-5.2) [facility] ID Date Data Source [id number] 07/22/2021 12:58:33 AM EST [facility] UNIT NUMBER [id number] LOOD COMPONENT TYPE LR PR3 PLATELETSUNIT DIVISION 00STATUS OF UNIT TRANSFUSEDTRANSFUSION STATUS OK TO TRANSFUSEUNIT NUMBER [id number] COMPONENT TYPE LR IN PLATELETSUNIT DIVISION 00STATUS OF UNIT OUTDATEDTRANSFUSION STATUS OK TO TRANSFUSE Name Value Range Interpretation Code Description Data Che rce(s) Supporting Document(s) TRANSFUSE PLATELETS [facility] ID Date Data Source [id number] 07/19/2021 03:02:54 AM EST [facility] Name Value Range Interpretation Code Description Data Che rce(s) Supporting Document(s) WBC 4.1 10*3/uL (4.1-11.0) [facility] RBC 2.59 10*6/uL (4.00-5.40) L [facility] HGB 8.3 g/dL (12.0-16.0) L [facility] HCT 23.9 % (36.0-47.0) L [facility] MCV 92.3 fL (80.0-95.0) [facility] MCH 32.1 pg (27.0-32.0) H [facility] MCHC 34.8 g/dL (32.0-36.0) [facility] RDW 17.8 % (10.5-14.5) H [facility] PLT 8 10*3/uL (150-450) L [facility] ALERTED CRITICAL RESULT [place] [id number] 0255 [id number] [id number] MPV 9.4 fL (7.1-10.7) [facility] NEUT % 77.0 % (35.0-75.0) H [facility] BAND % 13.0 % (0.0-11.0) H [facility] LYMPH % 1.0 % (16.0-52.0) L [facility] MONO % 4.0 % (0.0-8.0) [facility] META % 3.0 % (0.0) H [facility] MYELO % 2.0 % (0.0) H [facility] NEUT # 3.2 10*3/uL (1.8-7.7) [facility] BAND # 0.5 10*3/uL [facility] LYMPH # 0.0 10*3/uL (1.2-4.8) L [facility] MONO # 0.2 10*3/uL (0.0-0.8) [facility] META # 0.1 10*3/uL (0.0) H [facility] MYELO # 0.1 10*3/uL (0.0) H [facility] TOXIC 1+ [facility] ANISO 1+ [facility] ID Date Data Source [id number] 07/19/2021 01:42:50 AM EST [facility] Name Value Range Interpretation Code Description Data Che rce(s) Supporting Document(s) MAGNESIUM 1.8 mg/dL (1.7-2.4) [facility] ID Date Data Source [id number] 07/19/2021 01:42:50 AM EST [facility] Name Value Range Interpretation Code Description Data Che rce(s) Supporting Document(s) SODIUM 145 mmol/L (136-145) [facility] POTASSIUM 3.2 mmol/L (3.6-5.2) L [facility] CHLORIDE 107 mmol/L (100-108) [facility] CO2 34 mmol/L (22-31) H [facility] ANION GAP 4 mmol/L (7-16) L [facility] UREA NITROGEN 24 mg/dL (7-24) [facility] CREATININE 0.42 mg/dL (0.60-1.00) L [facility] BUN/CREAT RATIO 57.1 RATIO (10.0-20.0) H [facility] GLUCOSE 138 mg/dL (70-99) H [facility] CALCIUM 8.7 mg/dL (8.4-10.2) [facility] GFR >60 ml/min/1.73m2 (>59) [facility] GFR ( AMER) >60 ml/min/1.73m2 (>59) [facility] GFR INTERPRETATION [facility] --NORMAL KIDNEY FUNCTION OR MILD DISEASE - GFR >OR= 60CHRONIC KIDNEY DISEASE - GFR 15 - 59RENAL FAILURE - GFR <15 Est. GFR calculation based on the MDRDstudy equation, which assumes a steadystate for creatinine. Est. GFR should notbe used for medication dosing. ID Date Data Source [id number] 07/18/2021 08:20:13 AM EST [address] [id number] Name: BEATRIZ LORDMANDOB: 1945Sex: FOrdering Provider: EDENILSON TRINHAuthorizing Prov: EDENILSON TRINHReferrdavid Provider: Procedure Performed: / XR CHEST PORTABLEExam Date: 07/18/2021 02:45MRN: [id number] Number: [id number] Class: InpatientAccount #: [id number] for Exam: sobTechnique: AP portable view obtained.Comparison: July 15, 2021 and March 09, 2021.Findings: Lung volumes are low bilaterally. Single lumen port seen on the left with the tip of the catheter in the SVC. No pleural effusion or p neumothorax is seen. There are now patchy areas of airspace disease seen in the left perihilar region and right upper lobe. Sternotomy wires. Mediastinal surgical clips. Multiple surgical clips upper abdomen.IMPRESSION: Patchy areas of airspace disease seen bilaterally in the left perihilar region and right upper lobe. Findings may represent pneumonia.Report electronically signed by: ASHLEIGH ROE On 07/18/2021 8:20 AMWorkstation ID: [id number] Name Value Range Interpretation Code Description Data Che rce(s) Supporting Document(s) ID Date Data Source [id number] 07/18/2021 09:26:14 AM EST [facility] Name Value Range Interpretation Code Description Data Che rce(s) Supporting Document(s) WBC 2.4 10*3/uL (4.1-11.0) L [facility] [place] RBC 2.82 10*6/uL (4.00-5.40) L [facility] HGB 8.9 g/dL (12.0-16.0) L [facility] HCT 25.6 % (36.0-47.0) L [facility] MCV 90.9 fL (80.0-95.0) [facility] MCH 31.7 pg (27.0-32.0) [facility] MCHC 34.9 g/dL (32.0-36.0) [facility] RDW 17.9 % (10.5-14.5) H [facility] PLT 24 10*3/uL (150-450) L [facility] MPV 9.7 fL (7.1-10.7) [facility] NEUT % 88.0 % (35.0-75.0) H [facility] BAND % 3.0 % (0.0-11.0) [facility] LYMPH % 3.0 % (16.0-52.0) L [facility] MONO % 6.0 % (0.0-8.0) [facility] NEUT # 2.1 10*3/uL (1.8-7.7) [facility] BAND # 0.1 10*3/uL [facility] LYMPH # 0.1 10*3/uL (1.2-4.8) L [facility] MONO # 0.1 10*3/uL (0.0-0.8) [facility] TOXIC 1+ [facility] DOHLE BODIES 2+ [facility] ANISO 1+ [facility] ID Date Data Source [id number] 07/18/2021 06:38:48 AM EST [facility] Name Value Range Interpretation Code Description Data Che rce(s) Supporting Document(s) SODIUM 146 mmol/L (136-145) H [facility] POTASSIUM 3.4 mmol/L (3.6-5.2) L [facility] CHLORIDE 109 mmol/L (100-108) H [facility] CO2 28 mmol/L (22-31) [facility] ANION GAP 9 mmol/L (7-16) [facility] UREA NITROGEN 19 mg/dL (7-24) [facility] CREATININE 0.57 mg/dL (0.60-1.00) L [facility] BUN/CREAT RATIO 33.3 RATIO (10.0-20.0) H [facility] GLUCOSE 150 mg/dL (70-99) H [facility] CALCIUM 9.4 mg/dL (8.4-10.2) [facility] TOTAL PROTEIN 5.6 g/dL (6.4-8.2) L [facility] ALBUMIN 2.9 g/dL (3.2-4.5) L [facility] GLOBULIN 2.7 g/dL (2.7-4.3) [facility] ALB/GLOB RATIO 1.1 RATIO [facility] ALKALINE PHOSPHATASE 51 U/L (45-117) [facility] BILIRUBIN,TOTAL 1.1 mg/dL (0.0-1.0) H [facility] PLEASE NOTE:Total bilirubin results may be falselyelevated in patients taking Eltrombopag. AST (SGOT) 11 U/L (11-39) [facility] ALT (SGPT) 18 U/L (12-78) [facility] GFR >60 ml/min/1.73m2 (>59) [facility] GFR ( AMER) >60 ml/min/1.73m2 (>59) [facility] GFR INTERPRETATION [facility] --NORMAL KIDNEY FUNCTION OR MILD DISEASE - GFR >OR= 60CHRONIC KIDNEY DISEASE - GFR 15 - 59RENAL FAILURE - GFR <15 Est. GFR calculation based on the MDRDstudy equation, which assumes a steadystate for creatinine. Est. GFR should notbe used for medication dosing. ID Date Data Source [id number] 07/17/2021 10:13:10 PM EST [facility] Name Value Range Interpretation Code Description Data Che rce(s) Supporting Document(s) WBC 1.5 10*3/uL (4.1-11.0) L [facility] ALERTED CRITICAL RESULT TOLORI ([id number]) ON 3.2 (20020) [place] 07.17. [place]11 [place] [address] RBC 2.79 10*6/uL (4.00-5.40) L [facility] HGB 9.0 g/dL (12.0-16.0) L [facility] HCT 25.4 % (36.0-47.0) L [facility] MCV 90.9 fL (80.0-95.0) [facility] MCH 32.2 pg (27.0-32.0) H [facility] MCHC 35.4 g/dL (32.0-36.0) [facility] RDW 17.4 % (10.5-14.5) H [facility] PLT 35 10*3/uL (150-450) L [facility] MPV 8.8 fL (7.1-10.7) [facility] ID Date Data Source [id number] 07/17/2021 02:35:44 PM EST [facility] NT INFORMATIONPatient MRN Name Date of Age Gend*PT [id number] Beatriz Castaneda 1945 76 years F IPPT Location Admission Date/Time Visit ID Attending [id number] 07/15/21 1419 --- ZANE Castillo BS([id number]) EPI ID [facility] Admitting Provider [id number] Jonathan Sheets MD([id number])CARDIOLOGY CONSULTATIONName: Beatriz Castaneda Gender: femaleDate of : 1945 Age: 76 yearsDate/Time of Admit: 07/15/2021 2:19 PM Code Status: Full CodePrimary Care Provider / Referring Physician: VLADISLAV OSORIO MDInformant:HISTORYCHIEF COMPLAINT:Chief ComplaintPatient presents with Abnormal Lab had some bld work this am - bc she was feeling weak- x about a wk-worse yesttold she needed a transfusion - is on chemo for lymphoma -HPI:This patient is a 76 years female who is admitted to the hospital through the ED July 15, because of pancytopenia. She has a history of diffuse largeB-cell lymphoma and he has been receiving intrathecal chemotherapy.She was found to have an elevated troponin level and we have been asked to seeher.She is currently short of breath at rest. She has sinus tachycardia on thebedside monitor at 110 bpmIn 2007 she underwent aortocoronary bypass grafting. She had not had anyinterval history of ischemic symptoms or heart failure since that time.Her prehospital medications included Zocor.A CT angiogram of the chest excluded pulmonary embolism.Lab studies reveal potassium 3.4, creatinine 0.34, and GFR greater than 60.Troponin levels are 0.21, 1.51, 1.19, and 0.81. These are consistent with acutemyocardial injury. The N-terminal proBNP is 2736. Her admission white bloodcell count was 0.2, hemoglobin 6.2, hematocrit 17.9, and platelet count 8.The echocardiogram demonstrates anteroapical hypo to akinesis consistent withanteroapical myocardial infarction that is new since February 24, 2021. She haselevated left ventricular filling pressures as well as right ventriculardysfunction. There is no significant valvular pathology.PAST HISTORYPMH:Past Medical History:Diagnosis Date Coronary artery disease Diffuse large B cell lymphoma History of transfusion Hypercholesterolemia Hypertension Lymphoma PONV (postoperative nausea and vomiting)PSH:Past Surgical History:Procedure Laterality Date BREAST SURGERY CARDIAC SURGERY carotid endarectomy Right CORONARY ARTERY BYPASS GRAFT EYE SURGERY JOINT REPLACEMENT MASTECTOMY SKIN BIOPSY VASCULAR SURGERYFH:Family HistoryProblem Relation Age of Onset Breast cancer Sister Pancreatic cancer BrotherPSH:Social HistorySocial History Narrative Not on fileSocial HistorySocioeconomic History Marital status: Spouse name: Not on file Number of children: Not on file Years of education: Not on file Highest education level: Not on fileOccupational History Not on fileTobacco Use Smoking status: Never Smoker Smokeless tobacco: Never UsedVaping Use Vaping Use: Never usedSubstance and Sexual Activity Alcohol use: Not Currently Drug use: Never Sexual activity: Not on fileOther Topics Concern Not on fileSocial History Narrative Not on fileSocial Determinants of HealthFinancial Resource Strain: Difficulty of Paying Living Expenses:Food Insecurity: Worried About Running Out of Food in the Last Year: Ran Out of Food in the Last Year:Transportation Needs: Lack of Transportation (Medical): Lack of Transportation (Non-Medical):Physical Activity: Days of Exercise per Week: Minutes of Exercise per Session:Stress: Feeling of Stress :Social Connections: Frequency of Communication with Friends and Family: Frequency of Social Gatherings with Friends and Family: Attends Spiritism Services: Active Member of Clubs or Organizations: Attends Club or Organization Meetings: Marital Status:Intimate Partner Violence: Fear of Current or Ex-Partner: Emotionally Abused: Physically Abused: Sexually Abused:Review of SystemsConstitutional: No fevers, chills, weight loss or night sweats..Eyes: No blindness, double vision, or glaucomaRespiratory: negative for asthma, chronic bronchitis, hemoptysis, pleurisy,sputum production, or wheezingCardiovascular: negative for claudication and as stated in the HPIGastrointestinal: negative for constipation, diarrhea, melena, nausea, orvom itingNeurological: negative for dizziness, gait problems, headaches and seizuresHematologic/lymphatic: negative for easy bruising, petechiae, or anemiaBehavioral/Psych: negative for anxiety and depressionEndocrine: negative for polydipsia, polyphagia and polyuria and temperatureintoleranceAllergic/Immunologic: No seasonal allergiesMEDICATIONS AND ALLERGIESALLERGIES/SENSITIVITIES:AllergiesAllergen Reactions Penicillins RashMEDS:Medications Prior to AdmissionMedication Sig Dispense Refill Last Dose acetaminophen (TYLENOL) 325 MG tablet Take 2 tablets (650 mg total) by mouthevery 4 (four) hours as needed (mild pain) 30 tablet 0 Past Month at Unknowntime acyclovir (ZOVIRAX) 200 MG capsule Take 400 mg by mouth 2 (two) times a dayUnknown at Unknown time famotidine (PEPCID) 20 MG tablet Take 20 mg by mouth nightly 07/14/2021 atUnknown time fenofibrate (LOFIBRA) 160 MG tablet Take 160 mg by mouth daily 07/14/2021 atUnknown time metoprolol tartrate (LOPRESSOR) 25 MG tablet Take 12.5 mg by mouth 2 (two)times a day 07/15/2021 at Unknown time omeprazole (PriLOSEC) 20 MG capsule Take 20 mg by mouth daily 07/14/2021 atUnknown time ondansetron (ZOFRAN-ODT) 4 MG disintegrating tablet Take 4 mg by mouth every 6(six) hours as needed for nausea Unknown at Unknown time pregabalin (LYRICA) 75 MG capsule Take 1 capsule (75 mg total) by mouth 2(two) times a day Max Daily Amount: 150 mg 60 capsule 11 07/15/2021 at Unknowntime senna-docusate (PERICOLACE) 8.6-50 MG Take 2 tablets by mouth nightly (Patienttaking differently: Take 1 tablet by mouth 2 (two) times a day as needed ) 60tablet 1 07/14/2021 at Unknown time simvastatin (ZOCOR) 20 MG tablet Take 20 mg by mouth nightly 07/14/2021 atUnknown time sulfamethoxazole-trimethoprim (BACTRIM DS,SEPTRA DS) 800-160 MG per tabletTake 1 tablet by mouth 2 (two) times a day One tablet BID -W-07/14/2021 atUnknown time vitamin D, Ergocalciferol, 1.25 MG (41956 UT) CAPS Take 1 capsule by mouthevery 30 (thirty) days I capsule 1st of the month PM Past Month at Unknowntime lidocaine Viscous HCl (XYLOCAINE) 2 % solution Take 5 mL by mouth as neededfor painPhysicalVITAL SIGNS:Blood Pressure: BP: 120/69 Pulse: Heart Rate: 87Temperature: Temp: 98.8 F Respirations: Resp: 20Admission Weight: Weight: 54.4 kg (119 lb 14.9 oz) O2 Saturation: SpO2: 100 %Today's Weight: Weight: 54.4 kg (119 lb 14.9 oz)PHYSICAL EXAMINATION:GENERAL: Well developed, frail woman in no acute distress and oriented to personplace and time. There is normal affect and thought process.H EENT: No arcus, xanthelasma, or scleral icterus. Nasal and oral mucosa pink.Tongue well-papillated.NECK: JVP normal. Carotids brisk. No lymphadenopathy.LUNGS: Resonant and clearCARDIAC: PMI normal S1 normal S2 physiologically split. No gallops. No murmurs.No rubs.ABDOMEN: Soft and nontender without hepatosplenomegaly. Bowel sounds are normal.PULSES: Pedal pulses are nonpalpableEXTREMITIES: Trace ankle edema. No clubbing. No cyanosis. Skin warm and wellperfused. No venous stasis.MUSCULOSKELETAL: No deformities, good muscle tone, normal range of motionNEUROLOGICAL: No major sensory or motor deficits.DiagnosticsLABS:BMP:Lab ResultsComponent Value Date NA 145 07/17/2021 K 3.4 (L) 07/17/2021 CL 113 (H) 07/17/2021 CO2 25 07/17/2021 ANIONGAP 7 07/17/2021 CALCIUM 8.6 07/17/2021 GLU 133 (H) 07/17/2021 BUN 12 07/17/2021 CREATININE 0.34 (L) 07/17/2021 GFRAA >60 07/17/2021 GFRNONAA >60 07/17/2021BC with Diff:Lab ResultsComponent Value Date WBC 0.6 (LL) 07/17/2021 RBC 2.66 (L) 07/17/2021 HGB 8.5 (L) 07/17/2021 HCT 24.0 (L) 07/17/2021 MCV 90.2 07/17/2021 MCH 31.9 07/17/2021 MCHC 35.4 07/17/2021 RDW 17.9 (H) 07/17/2021 PLT 11 (LL) 07/17/2021 MPV 7.2 07/17/2021 LYMPHOPCT 5.0 (L) 07/17/2021 MONOPCT 8.0 07/17/2021 EOSPCT 28.0 (H) 07/16/2021 BASOPCT 10.0 (H) 07/15/2021 NEUTROABS 0.5 (L) 07/17/2021 MONOABS 0.0 07/17/2021 BASOSABS 0.0 07/15/2021BC without Diff:Lab ResultsComponent Value Date WBC 0.6 (LL) 07/17/2021 RBC 2.66 (L) 07/17/2021 HGB 8.5 (L) 07/17/2021 HCT 24.0 (L) 07/17/2021 MCV 90.2 07/17/2021 MCH 31.9 07/17/2021 MCHC 35.4 07/17/2021 RDW 17.9 (H) 07/17/2021 PLT 11 (LL) 07/17/2021 MPV 7.2 07/17/2021MP:Lab ResultsComponent Value Date NA 145 07/17/2021 K 3.4 (L) 07/17/2021 CL 113 (H) 07/17/2021 CO2 25 07/17/2021 ANIONGAP 7 07/17/2021 BUN 12 07/17/2021 CREATININE 0.34 (L) 07/17/2021 BCR 35.3 (H) 07/17/2021 GLU 133 (H) 07/17/2021 CALCIUM 8.6 07/17/2021 ALBUMIN 2.5 (L) 07/17/2021 GLOB 2.1 (L) 07/17/2021 AGRC 1.2 07/17/2021 ALKPHOS 45 07/17/2021 LABBILI 1.3 (H) 07/17/2021 AST 11 07/17/2021 ALT 14 07/17/2021 GFRAA >60 07/17/2021 GFRNONAA >60 07/17/2021oags:Lab ResultsComponent Value Date PROTIME 11.6 07/16/2021 INR 1.10 07/16/2021 APTT 33.0 07/16/2021-Dimer:Lab ResultsComponent Value Date PROCALCITON 0.23 (H) 07/15/2021 LACTATE 0.8 07/16/2021NT Pro- BNP : No results found for this or any previous visit.DIAGNOSTICS:IMAGING: Chest film reveals normal heart size, normal pulmonary blood flowdistribution, no edema, and no effusions.ECG: Electrocardiogram on 15 July at 1507 hrs. demonstrates sinus rhythmwith with fusion beats. There is probable LVH present with QRS widening andthere is a leftward frontal plane axis.A tracing obtained on 16 July at 444 hours demonstrates sinus rhythm with anewly acquired diffuse T wave flattening. She does not have infarction Q waves.There is not evidence for ischemic T waves either. There is T wave change couldbe on the basis of hypokalemia.ConclusionsImpressions:1. Elevated troponin in a pattern consistent with acute myocardial injury.2. Newly acquired anteroapical hypokinesis which could reflect type IImyocardial infarction or Takotsubo cardiomyopathy2. Profound anemia, which causes profound myocardial oxygen supply demandimbalance which could cause type II myocardial infarction3. History of previous coronary bypass grafting4. Ischemic cardiomyopathy5. Diffuse large B-cell lymphoma6. Acute combined heart failureRecommendations:1. Increase Lopressor to 25 mg p.o. twice daily2. Begin furosemide 40 mg IV twice dailyThank you for this consultation.Jude Ward, MDDate: July 17, 2021Time: 1:34 PM Name Value Range Interpretation Code Description Data Che rce(s) Supporting Document(s) ID Date Data Source [id number] 07/18/2021 07:54:03 AM EST [facility] Name Value Range Interpretation Code Description Data Che rce(s) Supporting Document(s) SPECIMEN DESCRIPTION [facility] METH RES STAPH AUR (NEG) [facility] ID Date Data Source [id number] 07/17/2021 05:39:02 PM EST [facility] Name Value Range Interpretation Code Description Data Che rce(s) Supporting Document(s) VANCOMYCIN TROUGH 2.5 ug/mL (10.0-20.0) L [facility] ID Date Data Source [id number] 07/21/2021 06:32:34 PM EST [facility] Name Value Range Interpretation Code Description Data Che rce(s) Supporting Document(s) CRYPTOSPORIDIUM AG [facility] NegativeReference range: Negative Perfor med By: [facility] [address] [place] [address] Industrial Retrofit Designer: Elvi Crockett MD GIARDIA ANTIGEN [facility] NegativeReference range: Negative Perfor med By: [facility] [address] [place] [address] Industrial Retrofit Designer: Elvi Crockett MD ID Date Data Source [id number] 07/18/2021 01:12:21 AM EST [facility] Name Value Range Interpretation Code Description Data Che rce(s) Supporting Document(s) LACTOFERRIN, FECAL (NEG) A [facility] PER[facility] AT [address] [place] [address] ID Date Data Source [id number] 07/17/2021 06:52:20 PM EST [facility] Name Value Range Interpretation Code Description Data Che rce(s) Supporting Document(s) STOOL OCCULT BLOOD (NEG) A [facility] ID Date Data Source [id number] 07/18/2021 12:12:29 AM EST [facility] UNIT NUMBER [id number] LOOD COMPONENT TYPE LR PR2 PLATELETSUNIT DIVISION 00STATUS OF UNIT TRANSFUSEDTRANSFUSION STATUS OK TO TRANSFUSE Name Value Range Interpretation Code Description Data Che rce(s) Supporting Document(s) TRANSFUSE PLATELETS [facility] ID Date Data Source [id number] 07/17/2021 08:38:26 AM EST [facility] Name Value Range Interpretation Code Description Data Che rce(s) Supporting Document(s) WBC 0.6 10*3/uL (4.1-11.0) L [facility] ALERTED CRITICAL RESULT TOJANE 2128 IN 3 .4 ON 07.17.21 [place] [address] [place] [id number] RBC 2.66 10*6/uL (4.00-5.40) L [facility] HGB 8.5 g/dL (12.0-16.0) L [facility] HCT 24.0 % (36.0-47.0) L [facility] MCV 90.2 fL (80.0-95.0) [facility] MCH 31.9 pg (27.0-32.0) [facility] MCHC 35.4 g/dL (32.0-36.0) [facility] RDW 17.9 % (10.5-14.5) H [facility] PLT 11 10*3/uL (150-450) L [facility] ALERTED CRITICAL RESULT TOJANE 2128 IN 3 .4 ON 07.17.21 [place] [address] [place] [id number] MPV 7.2 fL (7.1-10.7) [facility] NEUT % 86.0 % (35.0-75.0) H [facility] BAND % 1.0 % (0.0-11.0) [facility] LYMPH % 5.0 % (16.0-52.0) L [facility] MONO % 8.0 % (0.0-8.0) [facility] NEUT # 0.5 10*3/uL (1.8-7.7) L [facility] BAND # 0.0 10*3/uL [facility] LYMPH # 0.0 10*3/uL (1.2-4.8) L [facility] MONO # 0.0 10*3/uL (0.0-0.8) [facility] TOXIC 1+ [facility] VACUOLES 1+ [facility] ID Date Data Source [id number] 07/17/2021 07:48:07 AM EST [facility] Name Value Range Interpretation Code Description Data Che rce(s) Supporting Document(s) SODIUM 145 mmol/L (136-145) [facility] POTASSIUM 3.4 mmol/L (3.6-5.2) L [facility] CHLORIDE 113 mmol/L (100-108) H [facility] CO2 25 mmol/L (22-31) [facility] ANION GAP 7 mmol/L (7-16) [facility] UREA NITROGEN 12 mg/dL (7-24) [facility] CREATININE 0.34 mg/dL (0.60-1.00) L [facility] BUN/CREAT RATIO 35.3 RATIO (10.0-20.0) H [facility] GLUCOSE 133 mg/dL (70-99) H [facility] CALCIUM 8.6 mg/dL (8.4-10.2) [facility] TOTAL PROTEIN 4.6 g/dL (6.4-8.2) L [facility] ALBUMIN 2.5 g/dL (3.2-4.5) L [facility] GLOBULIN 2.1 g/dL (2.7-4.3) L [facility] ALB/GLOB RATIO 1.2 RATIO [facility] ALKALINE PHOSPHATASE 45 U/L (45-117) [facility] BILIRUBIN,TOTAL 1.3 mg/dL (0.0-1.0) H [facility] PLEASE NOTE:Total bilirubin results may be falselyelevated in patients taking Eltrombopag. AST (SGOT) 11 U/L (11-39) [facility] ALT (SGPT) 14 U/L (-78) [facility] GFR >60 ml/min/1.73m2 (>59) [facility] GFR ( AMER) >60 ml/min/1.73m2 (>59) [facility] GFR INTERPRETATION [facility] --NORMAL KIDNEY FUNCTION OR MILD DISEASE - GFR >OR= 60CHRONIC KIDNEY DISEASE - GFR 15 - 59RENAL FAILURE - GFR <15 Est. GFR calculation based on the MDRDstudy equation, which assumes a steadystate for creatinine. Est. GFR should notbe used for medication dosing. ID Date Data Source [id number] 07/16/2021 05:12:01 PM EST [facility] NT INFORMATIONPatient MRN Name Date of Age Gend*PT [id number] Beatriz Castaneda 1945 76 years F IPPT Location Admission Date/Time Visit ID Attending [id number] 07/15/21 1419 --- Korin Donohue MD([id number]) EPI ID CSN Admitting Provider [id number] Jonathan Sheets MD([id number])Inpatient Hematology/Oncology Consult NoteCarol Kai CastanedaMRN: [id number] for consult: Sepsis. Neutropenic fever. Pancytopenia.Impression and Recommendations: 1. Neutropenic fever/sepsis. Profoundly pancytopenic due to recentchemotherapy. 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 Clinically she has had an excellent response.This admission notable for fever hypotension tachypnea. She has responded to IVantibiotics and blood products. No clear-cut source although CT abdomen suggestpossible colitis in the ascending colon. No significant tenderness onexamination. Cultures negative so far.Recommend continuing broad- spectrum IV antibiotics. Continue with IV hydrationand blood product support.Dr. 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 She is followed byDr. Barnes. Patient receiving both systemic chemotherapy and intrathecalchemotherapy with meth otrexate. Treatment was approximately 8 days ago.Was advised to come to the emergency room yesterday with fever. In theemergency room she was noted to be hypotensive tachycardic and tachypneic.Rapid response was called. She did rule out for pulmonary embolism. Chestx-ray without pneumonia. CT of the abdomen suggested wall thickening of theascending colon possibly colitis.Since being in the hospital she is received 3 units of packed red blood cellsand 2 units of platelets.She did not require pressors. She is on broad-spectrum antibiotics.Overall she feels much better than yesterday.Other significant medical problems as notedPast Medical History:Past Medical History:Diagnosis Date Coronary artery disease Diffuse large B cell lymphoma History of transfusion Hypercholesterolemia Hypertension Lymphoma PONV (postoperative nausea and vomiting)Past Surgical History:Past Surgical History:Procedure Laterality Date BREAST SURGERY CARDIAC SURGERY carotid endarectomy Right CORONARY ARTERY BYPASS GRAFT EYE SURGERY JOINT REPLACEMENT MASTECTOMY SKIN BIOPSY VASCULAR SURGERYMedications:Medications Prior to AdmissionMedication Sig Dispense Refill Last Dose acetaminophen (TYLENOL) 325 MG tablet Take 2 tablets (650 mg total) by mouthevery 4 (four) hours as needed (mild pain) 30 tablet 0 Past Month at Unknowntime acyclovir (ZOVIRAX) 200 MG capsule Take 400 mg by mouth 2 (two) times a dayUnknown at Unknown time famotidine (PEPCID) 20 MG tablet Take 20 mg by mouth nightly 07/14/2021 atUnknown time fenofibrate (LOFIBRA) 160 MG tablet Take 160 mg by mouth daily 07/14/2021 atUnknown time metoprolol tartrate (LOPRESSOR) 25 MG tablet Take 12.5 mg by mouth 2 (tw o)times a day 07/15/2021 at Unknown time omeprazole (PriLOSEC) 20 MG capsule Take 20 mg by mouth daily 07/14/2021 atUnknown time ondansetron (ZOFRAN-ODT) 4 MG disintegrating tablet Take 4 mg by mouth every 6(six) hours as needed for nausea Unknown at Unknown time pregabalin (LYRICA) 75 MG capsule Take 1 capsule (75 mg total) by mouth 2(two) times a day Max Daily Amount: 150 mg 60 capsule 11 07/15/2021 at Unknowntime senna-docusate (PERICOLACE) 8.6-50 MG Take 2 tablets by mouth nightly (Patienttaking differently: Take 1 tablet by mouth 2 (two) times a day as needed ) 60tablet 1 07/14/2021 at Unknown time simvastatin (ZOCOR) 20 MG tablet Take 20 mg by mouth nightly 07/14/2021 atUnknown time sulfamethoxazole-trimethoprim (BACTRIM DS,SEPTRA DS) 800-160 MG per tabletTake 1 tablet by mouth 2 (two) times a day One tablet BID -W-07/14/2021 atUnknown time vitamin D, Ergocalciferol, 1.25 MG (68938 UT) CAPS Take 1 capsule by mouthevery 30 (thirty) days I capsule 1st of the month PM Past Month at Unknowntime lidocaine Viscous HCl (XYLOCAINE) 2 % solution Take 5 mL by mouth as neededfor painAllergies:PenicillinsFamily History:Family HistoryProblem Relation Age of Onset Breast cancer Sister Pancreatic cancer BrotherSocial History:Social HistoryTobacco Use Smoking status: Never Smoker Smokeless tobacco: Never UsedVaping Use Vaping Use: Never usedSubstance Use Topics Alcohol use: Not Currently Drug use: NeverReview of Systems:All systems were reviewed and found negative except for those mentioned in theHPI.Physical Exam:Temp: [96.6 F-101.3 F] 97.7 FHeart Rate: [66-120] 84Resp: [12-33] 27BP: (81-138)/(44-77) 134/74Alert oriented interactive. Does not appear to be in respiratory distress.Overall quite frail with decreased muscle mass. Alopecia.No oral lesions noted.No peripheral lymphadenopathy cervical supraclavicular axillary regionChest clear anteriorlyCardiac exam without murmur gallop or rubAbdomen without tenderness.Extremities without edema.Labs, Imaging and Other Diagnostics:Diagnostic tests reviewed:CBC with Diff:Lab ResultsComponent Value Date WBC 0.2 (LL) 07/16/2021 RBC 2.23 (L) 07/16/2021 HGB 8.9 (L) 07/16/2021 HCT 25.2 (L) 07/16/2021 MCV 92.8 07/16/2021 MCH 31.6 07/16/2021 MCHC 34.1 07/16/2021 RDW 17.7 (H) 07/16/2021 PLT 9 (LL) 07/16/2021 MPV 7.0 (L) 07/16/2021 LYMPHOPCT 30.0 07/16/2021 MONOPCT 12.0 (H) 07/16/2021 EOSPCT 28.0 (H) 07/16/2021 BASOPCT 10.0 (H) 07/15/2021 NEUTROABS 0.0 (L) 07/16/2021 MONOABS 0.0 07/16/2021 BASOSABS 0.0 07/15/2021MP:Lab ResultsComponent Value Date NA 145 07/16/2021 K 3.4 (L) 07/16/2021 CL 115 (H) 07/16/2021 CO2 23 07/16/2021 ANIONGAP 7 07/16/2021 BUN 11 07/16/2021 CREATININE 0.29 (L) 07/16/2021 BCR 37.9 (H) 07/16/2021 GLU 84 07/16/2021 CALCIUM 8.1 (L) 07/16/2021 ALBUMIN 2.3 (L) 07/16/2021 GLOB 1.8 (L) 07/16/2021 AGRC 1.3 07/16/2021 ALKPHOS 33 (L) 07/16/2021 LABBILI 1.7 (H) 07/16/2021 AST 10 (L) 07/16/2021 ALT 11 (L) 07/16/2021 GFRAA >60 07/16/2021 GFRNONAA >60 07/16/2021ignature: Ar Liu MDHematology/Oncology Associates of [phone]: July 16, 2021Time: 5:05 PM Name Value Range Interpretation Code Description Data Che rce(s) Supporting Document(s) ID Date Data Source [id number] 07/16/2021 01:18:12 PM EST [facility] Name Value Range Interpretation Code Description Data Che rce(s) Supporting Document(s) HGB 8.9 g/dL (12.0-16.0) L [facility] [place] [facility] PATIENT TRANSFUSED ID Date Data Source [id number] 07/16/2021 01:18:12 PM EST [facility] [place] Name Value Range Interpretation Code Description Data Che rce(s) Supporting Document(s) HCT 25.2 % (36.0-47.0) L [facility] [place] [facility] PATIENT TRANSFUSED ID Date Data Source [id number] 07/21/2021 10:11:23 AM EST [facility] SPECIMEN DESCRIPTION PERIPHERALSP ECIAL REQUESTS NONECULTURE RESULTS NO GROWTH 5 DAYSREPORT STATUS FINAL 07/21/2021 Name Value Range Interpretation Code Description Data Che rce(s) Supporting Document(s) ID Date Data Source [id number] 07/21/2021 10:11:23 AM EST [facility] SPECIMEN DESCRIPTION PERIPHERALSP ECIAL REQUESTS NONECULTURE RESULTS NO GROWTH 5 DAYSREPORT STATUS FINAL 07/21/2021 Name Value Range Interpretation Code Description Data Che rce(s) Supporting Document(s) ID Date Data Source [id number] 07/17/2021 02:29:17 PM EST [facility] SPECIMEN DESCRIPTION URINE, COLLE CTION METHOD NOT SPECIFIEDRESULT NEGATIVE FOR STREPTOCOCCUS PNEUMONIAE ANTIGEN B Y EIAREPORT STATUS FINAL 07/17/2021 Name Value Range Interpretation Code Description Data Che rce(s) Supporting Document(s) ID Date Data Source [id number] 07/17/2021 02:27:11 PM EST [facility] SPECIMEN DESCRIPTION URINE, COLLE CTION METHOD NOT SPECIFIEDRESULT NEGATIVE FOR LEGIONELLA PNEUMOPHILA TYPE 1 ANTIG EN BY EIAA NEGATIVE RESULT DOES NOT EXCLUDE INFECTION WITH LEGIONELLAPNEUMOPHILA SEROGROUP 1 NOR DOES IT RULE OUT OTHER MICROBIAL CAUSEDRESPIRATORY INFECTIONS OR DISEASE CAUSED BY OTHER SEROGROUPS OFLEGIONELLA PNEUMOPHILA. REPORT STATUS FINAL 07/17/2021 Name Value Range Interpretation Code Description Data Che rce(s) Supporting Document(s) ID Date Data Source [id number] 07/16/2021 10:49:42 AM EST [facility] Name Value Range Interpretation Code Description Data Che rce(s) Supporting Document(s) &PDF [facility] BWHWPg5vBrYBJcRo22/TVSqyAPSyk4EoVLioHIg1RPqfKIGoQ8JafDuhFLoTMvsIUI2pA0SWU9vjGZBn vci [file] [facility]+TJ34a/8g4lUt1c9jjYDURwxrQ3VQFxyZnhfKrR [file] [employer]IONING [employer]ONWORKER HELPER/2HWkiPm71iBRvAsjXBbAth+d/s8mNuLvmd7RWxedFgTsMbOIxfRkBHHpM8gKHJyOfiYGRJVTOZQWI DNJWYPGLZTYKKNSPZURXGCOCKGoce9DF8+iP0j055a [file] ICAgICAgICAgICAgICAgICAgICAgICAgICAgICAgIC AgICAgICAgICAgICAgICAgICAgICAgICAgICAgICAgICAgICAgICAgICAgICAgICAgICAgICAgICAgIC QrYT4XSZPiRIWvEUKwLCBmVAKuTCEwIEKwQIAnAOUpUXIxVJBuGIJnZFObUTFzWEOiCXWwSXEvRZBpGG AgICAgICAgICAgICAgICAgICAgICAgICAgICAgICAg ANJiIONtYXNlRQImDC3UFBYnDWMtLLRdHLPzOVHfTXOkDOCwZJNgLAGjHBQzUEObKSFxCJQuACMoUGXy SEZnMIWcGOCeSCAvOAJmBTKrDWLtMJMdMMUyTWKtWLHjHJPuVHSmYEVoSJTjMDXsOFBtJDUxDS5ESAXg ICAgICAgICAgICAgICAgICAgICAgICAgICAgICAgIC AgICAgICAgICAgICAgICAgICAgICAgICAgICAgICAgICAgICAgICAgICAgICAgICAgICAgICAgICAgIC PxMPJfWR7RABGfZAIuLGUxODHoTLJfVKLoCXRrOXOoCYEwKRGnUTKkTBXbXNPtCDNlZAUeWLTuPTQtNO AgICAgICAgICAgICAgICAgICAgICAgICAgICAgICAg RIQdIRLwIINnNEKuIYVfAF9QFFXbVBMoLSVzPZHzDSRwEPXbMHTsAAThQLHbWOHyWVUyPSInJGVqUIKn CXXoYHJpMIYrUQLjMDFhUPOmHBDgYUMwZMXnWIKeOVXwJIOsRIRvBWWhBZEwYZMoTORdFKWzNVVjYA7K ICAgICAgICAgICAgICAgICAgICAgICAgICAgICAgIC AgICAgICAgICAgICAgICAgICAgICAgICAgICAgICAgICAgICAgICAgICAgICAgICAgICAgICAgICAgIC NwQSBjEAArLQ4JGQVmZRCqYMSpWKOwBYOhCTHmXRSaUDOzDALjPFIzZQOgLUAaSBUvSWBqLLOqRFWpGQ AgICAgICAgICAgICAgICAgICAgICAgICAgICAgICAg NFJcQIQeDZCoNWUqUAVmWNChLQ9VQWWgUOArRZAtCWHsTRDsUHGaYJZtVKYuNXGgAYOpYTAaLAUuWCDb ICAgICAgICAgICAgICAgICAgICAgICAgICAgICAgICAgICAgICAgICAgICAgICAgICAgICAgICAgICAg MM6WHY02zXVfa3T3VFKeTR2pnme/Lh6JIJkoeaNlyA WzNP2XVkMdRG8djq3LLjSkPS8cmb6VIAaHIrScA7M8gOMcMDXoUSWSTjQqD37iAKdyFg59SLizBONiSk LcIZm3Kh3YRlWaD4hiXBCcUwX8UTYoJaI0UEKgMyVoWMnoVR2Jx3LxxOBpWWn+Co2JVH4eh4InGGx7QN AkGF9ial2KYEdEEeLcF8P0yTXmF0Y3NLnhZd6JFKGe CQQsWcczXYXIHViwSP0VDV7ihxY8TV7OpLRdSXVqUPWlzDDgPAw1X46kwFGoNYxeRU5YFQO+Christy+Pg0K UMFfAMApIOKtNkTbCDKCFdZaF95ggYSeSKXkKKT0XDTfMe9VQKBkY7SeaoCvnHsdvrJvJBClWRMSXS3C GQxaeeUwjSGwrCyuPV26eYzeLX9EQk1MNuKqGM4pic 1XkEMmDb1DUQU2PN3JEGQqPTXgSCAjLMV1IPPkGsKrXJhlFOZuSDTzIWE8QWKeELCkEG3MBoJlTATgVw S4EbFsJMIuNQXuom6OGZFtAPJ2XHk0EeIsVAMiEADzEJgxTCJdUKSsEIijHDSmACJhOT0QBpDaSSItXQ V0HrYmELEfZDXdtl7TDIDzJVXdFqtmMLGrTYGzWALs EPwkYFQeWXF3NLd8ENGdWYLmZT1DMxHjDGXkTTAiHwgxFLQeTONlvv0STJLkGTDkCsJjFTFcPGFsJJKc TGafIETaGUF6TJV4VIDcLBZoCG3OQsUfDFVcMPD2JJFkHOUkQQIkhg2BTRRgWDQxYxX3NRHwHFOsSANw AJbkCPWsJHO8Fvr6BGMrFLDjHT6QNrCyAGPxVGh1Eq ReXFJhUMNmuk2VFEDtZASsZqftAHCyAPUqXAKyLMrkCSKaNLLoJPJ6YTQbNAYsFD7USrPcERGqIBXoJV zaKLTxKUNsrw9OUZRkUOYjUoB5EBWlWNLcLENcBTnuSLKbEWUzWbR7LGInQCCdRS3EKhMoTPNkEXP4Wo dkKVJkVZPtxf5EUPThEQQxFKr0PrRqNYJoZBNyNOst RXOxLTU3NPA6QIBoGFLrDS1HKmXvYIJgQzFhJyEiSTMxKIJiix0FJIRpYIQgFVX0RTEtFSHnRHQoCJqy ZSEbGAQ1Fdg8SSNlKLGzGD0CCsEzNNQdKbozJoWhJQKpRZIheo0MKKMiAKFrWYq1WXFoAGXuUKOwVCda TZPaHDYhAeW8BJSxPDXsRQ8OUaWcNJViCfI1SnIgDR AcLEDxmh5GGKUtDTCzWLa7WKQpZVHqUGUgHMeuZFIuFYChGFNxCWOoEQQhPX9ZPnZwOJHwXNOrNqWdMU MvBXAiic0IYWUgTIA0PFv9SPLhABUsMUAqWTdrHNXtOILlUwT5ZEWlXYItOP4OIbPySPWxDCLmExNwQH YpHHJbup7SJBAzIWF9TRQ0IhSvSRSfADMuNKlbQSYf KQLaBKT8HXKdEGMnEM5IIkZbWKJoAsN8RXEwIJTgVLXudc1LFAUvAGV6RwZyBgOgYGVaYOFqFMrfZORr NHV8HVMlYPAvOVWpYS6LRtPfNAhhFTMFRjb0QJihC6d2CWV9BY6PV7Olz9UpGHWiDMKOAJslOT6jyyWm SSShGo9AL6cRKnxuSQE7CQcrTQP2KQX3ChBxT3U4Mo kbHtM7LuDwHoOzMl1vESCbPmPiBZKyUcquCUt4KiVbZYSjMMIyLwI9WDVlUwH8YsEhYU7JVw5RZqF3FL H0kIEqYc3UWdbhUjvTSeTjUO7DBKa= ID Date Data Source [id number] 07/16/2021 09:30:07 AM EST [facility] NT INFORMATIONPatient MRN Name Date of Age Gend*PT [id number] Beatriz Castaneda 1945 76 years F IPPT Location Admission Date/Time Visit ID Attending [id number] 07/15/21 1419 --- Korin Donohue MD([id number]) EPI ID CSN Admitting Provider [id number] Jonathan Sheets MD([id number]) Attestation signed by Mihir Barajas MD at 07/16/2021 9:30 FERNANDO Attestation:Attestation Type: Mid-Level: Physician-KASSANDRA (alone): The KASSANDRA conducted theevaluation, management and treatment of this patient. The orders and the chartwere reviewed and approved by me.Mihir Barajas MD --ED Provider in Triage NotePatient Name: Beatriz CastanedaPatient and Time of Assessment: 07/15/21, 2:17 PMChief ComplaintPatient presents with Abnormal Lab had some bld work this am - bc she was feeling weak- x about a wk-worse yesttold she needed a transfusion - is on chemo for lymphoma -Brief HPI: 76 years female, reports that she had labs done this morning-has beenhaving issues with her blood pressure dropping+weakness x 1 weekHistory of diffuse large B cell lymphoma-on intrathecal chemotherapyReports that labs showed her WBC count was low and she needed a transfusionOncologist-PanebiancoReports fever at homePhysical exam:Vitals: 07/15/21 1414BP: 96/61BP Location: Right upper armPulse: 106Resp: 20Temp: 99.1 FTempSrc: TympanicSpO2: 100%HypotensiveTachyAppears chronically illPreliminary Plan:Labs, EKG, CXRThis note was electronically signed by LUCAS Langford, 07/15/21, 2:17 PM.ED CourseCONNOR Langford- Physician AssistantTod Wallace Name Value Range Interpretation Code Description Data Che rce(s) Supporting Document(s) ID Date Data Source [id number] 07/16/2021 10:53:43 AM EST [facility] Name Value Range Interpretation Code Description Data Che rce(s) Supporting Document(s) WBC 0.2 10*3/uL (4.1-11.0) L [facility] [place] ALERTED CRITICAL RESULT TOMARY KINEGRIN O/[id number] AT 1051 ON [id number] [place] [id number] RBC 2.23 10*6/uL (4.00-5.40) L [facility] HGB 7.0 g/dL (12.0-16.0) L [facility] HCT 20.7 % (36.0-47.0) [facility] MCV 92.8 fL (80.0-95.0) [facility] MCH 31.6 pg (27.0-32.0) [facility] MCHC 34.1 g/dL (32.0-36.0) [facility] RDW 17.7 % (10.5-14.5) H [facility] PLT 9 10*3/uL (150-450) L [facility] ALERTED CRITICAL RESULT TOMARY PELLEGRIN O/[id number] AT 1051 ON [id number] BY [id number] MPV 7.0 fL (7.1-10.7) L [facility] NEUT % 22.0 % (35.0-75.0) [facility] BAND % 8.0 % (0.0-11.0) [facility] LYMPH % 30.0 % (16.0-52.0) [facility] MONO % 12.0 % (0.0-8.0) H [facility] EOS % 28.0 % (0.0-5.0) [facility] NEUT # 0.0 10*3/uL (1.8-7.7) L [facility] BAND # 0.0 10*3/uL [facility] LYMPH # 0.1 10*3/uL (1.2-4.8) L [facility] MONO # 0.0 10*3/uL (0.0-0.8) [facility] Eosinophils [#/volume] in Blood by Automated count 0.1 10*3/uL (0.0-0 .5) [facility] TOTAL CELLS COUNTED 50 [facility] ANISO 1+ [facility] POIK 1+ [facility] HYPO 1+ [facility] ID Date Data Source [id number] 07/16/2021 08:19:04 AM EST [facility] Name Value Range Interpretation Code Description Data Che rce(s) Supporting Document(s) TROPONIN I 0.81 ng/mL (<0.05) H [facility] Less than 0.05: Myocardial injury unlike lyGreater than or equal to 0.05: Highly suggestive of myocardial injuryCorrelation with rise and/or fall ofserial troponins, clinical symptomsand ECG changes is necessary. ID Date Data Source [id number] 07/16/2021 08:19:04 AM EST [facility] Name Value Range Interpretation Code Description Data Che rce(s) Supporting Document(s) SODIUM 145 mmol/L (136-145) [facility] POTASSIUM 3.4 mmol/L (3.6-5.2) L [facility] CHLORIDE 115 mmol/L (100-108) H [facility] CO2 23 mmol/L (22-31) [facility] ANION GAP 7 mmol/L (7-16) [facility] UREA NITROGEN 11 mg/dL (7-24) [facility] CREATININE 0.29 mg/dL (0.60-1.00) L [facility] BUN/CREAT RATIO 37.9 RATIO (10.0-20.0) [facility] GLUCOSE 84 mg/dL (70-99) [facility] CALCIUM 8.1 mg/dL (8.4-10.2) L [facility] TOTAL PROTEIN 4.1 g/dL (6.4-8.2) L [facility] ALBUMIN 2.3 g/dL (3.2-4.5) L [facility] GLOBULIN 1.8 g/dL (2.7-4.3) L [facility] ALB/GLOB RATIO 1.3 RATIO [facility] ALKALINE PHOSPHATASE 33 U/L (45-117) L [facility] BILIRUBIN,TOTAL 1.7 mg/dL (0.0-1.0) H [facility] PLEASE NOTE:Total bilirubin results may be falselyelevated in patients taking Eltrombopag. AST (SGOT) 10 U/L (11-39) L [facility] ALT (SGPT) 11 U/L (12-78) L [facility] GFR >60 ml/min/1.73m2 (>59) [facility] GFR ( AMER) >60 ml/min/1.73m2 (>59) [facility] GFR INTERPRETATION [facility] --NORMAL KIDNEY FUNCTION OR MILD DISEASE - GFR >OR= 60CHRONIC KIDNEY DISEASE - GFR 15 - 59RENAL FAILURE - GFR <15 Est. GFR calculation based on the MDRDstudy equation, which assumes a steadystate for creatinine. Est. GFR should notbe used for medication dosing. ID Date Data Source [id number] 07/16/2021 06:00:21 AM EST [facility] Name Value Range Interpretation Code Description Data Che rce(s) Supporting Document(s) [facility] YHCYGy3dRwTWQoLky9IvYzMcIVTdRS7vmte1I6D8rOWiC6EgfOTno7dtN0RyY6McRMSfOEDOIV0XaGZc jb2 [file] rQML0p5Uw0cKGKDN9AuL7hjWn7yZ3sz4ZxirfZ/DE [place] TORRE/ [file] nZoM8k7ds29qzVaZ3n3vy22gfB8v8OGfv9u7Jcwb5q4Ynyt509Lbrk85yRN1136BhLeBE6e03v/4K26G upU09HvOaXE+n16N5sT/emd5ZQjlx1RoZ5RB99ns6s ngJ/Tt4Hs5Qf+HM0NE2TE9Xz2SDnd2n42DNdP/g4+jPSHvTb/4/MZMyDufzj/HgzTwE/gJPiHvTQc+8w jyC/cj7wDkEsKa2Mp3u+Y29YXqMZP/gD+NX0/zXw/w40Ea+Cq0ejB76ge6Oz0K7ScyY+DFoOXkS45mjs i5s8g4awl6fJ8hA//K0/kF/Suj9S+cn8NY9FwnU/gF xUHeXS2d+0bEuThfZkxFZ066aPHGP+5Uc1wr45f4C3320Lg5yjig2PBwRFbVkjR/BJ8F/EJ+AV6AV/AP yHwwyTv3L/Uy6RjoH/CO/Af40/ku9Z644jG+Z7pu4k20LwePb/UgDT4C/xS93LKDw7v9lGg94KTuuFmk 702/+NagTZGK00/Gu8Ez1cK3fmcB+Ums8fpTGqpB+Q E4QS6SW+AN+BS22kLZo8Ml2E1+uUUec9j+AD+li4Ipa6iXpG2eCnJ1zAwF1nTzQ/hAXkf/AhrPYa8YJb x8Wzk7FB13NobDhRv0uiWpbjapDp+TQb8KibH/AA95D/o6rGkx3p3ppIyLd/dIWfvv3FEwaAxk8CRfHz gy1Carne1Jqob7sfdFp3mq+gAvqhjTgcFbjZ92Eog8 UeAV+JY3LlV+9W63Gmqx9YXGf7E/NJ/R/TtH9+9M+2okfminJ/AT+C0fOTx9DVYErz5WuD6Amq/1cKZ9 ddPaeTbyb+K7ntBWiwi9+q0fh1D2Ybf+qvT3/D4zH0HG5dN2RqnAM/6ER6Fh1EhnP/gI+CvwbU/O2fbk eU3DovOgws7n5Ep1Z/KmfXXTrZ/V39+F5mHqSoTwZn fzLx1oBXfkN4J72KkU+7exq1p1Ng7Lq07C5xqSm8Va8Za3Kixp1/tBjrR2+gB/Gh/5ab2HFIU/J/s6z2 j+YV/puYfQGr/JJuHygJAgcxaqK578TR1HEeE7ZpoAllfBbI/gIW/YV1+63gplHttpffngKx8gOjGYXG K6utRGrGJe4EOOA/Xu2FLn3yUAl+Ad+HA2Y3HGmFT6 xz978u2qvxV2vth4VxeZ6V2lJ4N5PmdCxG/tNCm5Ngt13nqc0C4uid910F/gf0f3Xrkq/c3Khvj4Lb6s 67WFkHM8f6A+mrn+hH31JJ/TcfTLXgG4c40IiKRT/06gN/4Q29taXSaiu2++4mzVa1/I7aIQ92rYyQRn Po+CnlkDNt0vopJsKuji+MQfM2lo/idakleSn45885 /m+FKy5Oz40228EOHl35hrnCQ+f4toyWO38zzd8yExrdhpm9m+sl+BTP/wO+OFkFlV0YvEz5/9wHj5Qn nPSj5v/d7HR0WuoCdvZ38j//chVE7YjuQhJn9IKfioJmD4sBUMuJ3p8A48p8BvQGePl2kl668oroY1Wj mifzMKTthXqpXufg/7qmQ/ZB4NntOMHoSNW3Tw9Ln1 oyX9wT9X+zzKhLgTrJpqRwvNoJ3gtSY4V/nVVKrw7J1Asciu4pN2izD+WmlfVXoC3/ittwt5EYNK2OZ7 FHwUeAPewH+Dzwa+4wa1RGFDkZroVQDa0sa/qtOx30X2p+2iKBXq7dmMGtH/AC+oF/IOBZ/+H1yj/xfW 2Mi/wd+x5ghpB0oT/x+t2f+/a/b/34g6y9CfVZ4DEm fyo38n+ncK+AvwCrwCj/3rkDrl8Ff/GsGw6dsc5+dB+aIb0sH6OdZ0eU6zgt8dM1qpGS5U9/6NtRbwkH cQ4tWkF5dSCV/gs8F/o/2O/C806C8GO/8PLu070X2/IoYZe5PxUUoY2sadmx4/WoLxLBjPgvmb/qvKY9 +6t6T/h3ooD8E6T0foyThH/j9a6b+4tzHC1NH83muN r6V3dseCqDQd8cD5XBqW+T94S309UdQBe4B/I/6OetsTEryU8zybWjcgXC+t/3+X9f/vMshrkNcEeAVe 5P2V2wFf/WvoX0P/na272fi7Uh+LfToskb1Q/oBeEdUl8n91xHrAIb21quCg7r/v2pB39//+3phabyk7 x3OmN/uR7l64J+QN/9Zlsa86MD0+Xbw/zLCyg2qK7u sQ8btauFiac4Cqq0u1sTnWu02e2Zhcd2aNyG7bql096774zL5Pi/ZFiEngmWjO9mW0b5G/sK/WwXoF+2 odjOcDeeG/VotoOkk4VQ/B9/fg+8amC0rJi/XOC4H/Sp4ez/L0/JVnAN/aafTRS7ys35Kg3XzbX/Ir8i oaY5tmeP+B32i/g48j/wG+56+M/h7JjACcI2GGP+An 8JAX/hzOEu6lg2IQ2kmE/v7K6O+blO9CsS3oukTIui/9FIH/SuC/AocrDE9qWx/ge/0FJz3uFacZbNlc f8gb/8nT0eMIo6wLmok1dyjDzIPspqGodZ9orI4M6zWK5v/L7O+gCVLz5eepP+N5DeD7/lfo3QJn+PRv LOqqt5mh/6rw6d/IdKxXVmnkN/A35N/gE/Z1nxf0RW gc5O/1WeC/atOueRih5tqkxT5iMkxbzaW2kxR+K4H/SuC/WryiIS7TGEscxq0T1G2N+K8E/iuB/0rgvx L4rwT+K9H+/xXt/56WyArYSjVhYl4PiKn4GxPc2KVQAiYl8CANp3P2/OfeY1F1OtaG/Wv9/QMEZ6F8Gw jYHxTr/W6x9j+L9f6+mK8Kw968doDA+2fanrdveq2Q NW6czqPPxR/v/5bmQlCeHC0O8oEulWN4UfH/JxqWrnvI9z+z8/m48cwksc28QOoWk6OJc4n+pLhCZ8/K 67MdRbu9OROXvc3G+V9/zlN8Xv/VE2d94/phqjpkAVkuryaNvg10Z3JD7+u/BpKKfZ4QQ/28aOIt1f+6 x0tf/0WV1Ur0q7p+hv+q9Bz+K/YE0WW3X5/wX/k9Zf XDn6w3/Fcn+s9oqix5WNePLY1WGWxwD/s97KuZ/IE41h5bVcKG+g/5InR9ia/KXxbvSgledUZKGy3JjH 2FkizH4W+D7prxc0w+yrrw/fX+P5IDe+T5r5VoHwnIP1NH+0dy+n9fzgJ+Ad/+DTkCPL6/B9/rK1Krf9 TwPTr4/r92r97Lu1C//3/44a9nkD5lJ/A9f/WZwLe8 meCP0HiHG5kn8L/f2yYuM3Va9er/wjJ9Lnaa+dt/pm5EnVH2OL5H3wi24UtMFLVP+4OK/VZfD3vJ1WFZ 9pXCvtKhwPd+t8K+UvivFPaVDgd/Rn6urt8J1Z+Qd6J/J+TzP8z764fHX61V/s764vvT9/2HIzdi6wk4 cWcpKc3Z2mfmjKwyO/EkO6hfD76Xi/7V9qSm/6rSE/ g+o6Scx0cfZ1qPaCKmhQiNK+SHvGsDj/Gc/caHl6F07oPU/i3/VjVfd1V+cl0BPu9k4M9X/vkYd9K8D9 is6HcYjurZgxA+LcvooSJ34Nu/0zEl3Vnvq3f/X1yK1K9afDe/WbX/j1T7/4m9Ua3HQaJ/AR/Pr6rgDF RKRKq3fQukz1I83TihS6cF9VP0RoUVm/53BvB32t49 On7lFcR8yZuAxXS/go8C3/+/qyf9Cl8fa1AlgtNK6W782x7yD3B/SvcAvv9/dHZtHYj0Du8XKtK2qOwC 3g15N+Td7a/V4xrbncp/UDf6F+evdB/g27+Newtok+Silverio+ljv7F+Wc6rE92tw9NnsRmN/465q/je+T4Hjnm G29ehTB0M4dx49ts+B55+9lH6o06gPv0/mPa3DoT56 Ha33M3iS6deHrev/BC5tYn1KCtFa6m1Vf3oGaxMO+TMf55C5Bq0A8u6ejT2qBFouJDH/r6kCl57kq4oG 9iT3+V9Ck0yVyTfAButJhe+9tvJY8o094n58tmcpLp8dg8V8rKP8fO28Dd9dwquvM02eCetso2F/j+H7 V5xamtRUSK4F/mbN4s0110rR0V+5jDBfvEU3lIucz6 n0cy+Y0U0sTEPg+G/UHD/sVya3Dso584w9/BZvsnbba/mzq7E35Z1J9h5BMgTUzk484j/e02N/JvtKf9 sTYd/A/y9/psq/pCQOcAfeSk6qTBjO6KJj+N3effeb4n/2WfeH17vzU/qi4vusV/Uc8hqqw72+r/QVuQ d7W/jcQ0mQl3MHPd29NRZX6uHj/IPT9P8MtB3g60Cv SHvIL+lfa3G/JPRUNrUL3FSre6CghrPFyopsZil4Y9Lj6I79mjXtuHx65nU5Wc6/VT4PqoukqgszqFaI /F/E376mT+S55c8gMt+mxwuOyKSb95Rcdr63HungqmYGRwI03Y1/BvhB/BGYy1rOcWPcSAL7Wi/Dnhlz TTb48Hg+HPCV+NVhfuSVYsp9z8vA3y9mCb54mr0N2A lynda+qjNFZuHPCX+AuslDx7DcPP/+nNSVhT/Hk3/4c4pn+HNO5g9/TuV/6p4l23U5fE1Uwl/iyv2Fbx4l rLfOXyX+7d+Caden/7aqQ+f37ocW5PrnLa92A+YdQ6syB+podWIO7V7S//ZPEM/+TK/LFeSaX1+m1st3/S du//Sz8629A74s5e4GR+0rrY+XzfFO/9BfP+HzQfwM /c7tU5la1nvdXgiR/FSNEU4J8b/v81x/hk8ruD1/yaFQ7rai0mo/u3adXlJ/6wyQS8y8F/p0eYV6js84 Q31T68xf/Q1c2STpE8CQeZ9uSMT/AKvLXeTv//2ml/xf1FF0gG24PuhV/bG/vp account director/k1vA0sy+37Zfrp/99 P9u5++j7Ofvn+0076q/H2fbj/dv/vS8Wq2y9MpdFlW /tBzB29A/iB/3z/aaV+W0ljt8vdju3SdwKO9GUwt5988ca5mqV7ahdsLugs1cPI+0U09FyrX+2rj/uAe xG1qx97Xx6O+0kojP+OjfQq1lgot4tQFgB38ScEo8pfXj/Pte/G3bF52hgOI+6pWTS595FT1lE1nd83L PNG/uD+4039VeAOfjfZstNOBd+Q/9GRma3p0X/dC/6 7+/u83sP4wG8sanofrE/c0danyfG+8ffIpwTt0N4txLC/+/u61UW//H+3V/903dr1a3p/h4j0XT1tqkr UA3/+DW/o+3RbIC/ymi83i9q3FjpdEI/vWr1E3hpP/oZ0b+GWpFWbwhW28un3Qxnb/hlu6jozuG+60r5 Zy2s4vsxWavZeyj/snN+sbpkZQ4qz+4hphOve4a6Ft Bv+N/T3z4LqQJ+Dbft51/bvdDcgKoF8ossbaxxC/3go3z92j9foqV4rta9Solk4P7/9Tky9k0hfzgsS/ wIhZ07gHCZwed6I22R9hH2dp5Yq/uHf7c/ZG/47O077CD+EPgTk47xl0lf5bqvz//+6N79Hu+zh7Y/7C e9Znc7n7I6yj5zn/R742s6g2qskU/2N31R5l7Uzdt/ 265S9sPLz1G9AJYiz/+xlaYY9gI/pqQm0Mpfxx9MDl1VIgzSPuN+TF/Danielle/9U+vV+2T/wo8qE5dxY+H8 [file] mbTdZxo0WMK0MhDdYK0X ID Date Data Source [id number] 07/16/2021 06:00:13 AM EST [facility] Name Value Range Interpretation Code Description Data Che rce(s) Supporting Document(s) EKG [facility] KGZJRb0rBhKJFaUrt0JhWjQcHQSrWO1gvfj2T2I8zTLdQ8CwpSIws3dzZ8RzO2GvWSDeNHGERK3VeRTs jb2 [file] F6krTWUx1IZ0bexmfsTA7OnDTs80b7nW98CZ9a/Stretch Machine Operator+hE17y5p38DdxWSjyDXOTRi961a7C+Wun665lN [file] q69VBWJHQEyYbWeHsUNBsKWWtJYJZWtLWLDsOPQKYI WbUbIAPNugBkuAcaOWpZYBblIyp39hv18jNjL3MX+1AcBcIGiLrIIRxnh5Zx+XBByVcGaRPhP6dRB7Su DjQwCemiRzLBDU6GUtwOIllcjeeIJRhxwvseCbDwX5QEgsSpPLhBYpGmpRv0Vhk9CaFTarkyOmK7RJgL rBgZw0jMuIT0SBtTUbfapcJjA6zFdMXIoqYiynsMPS QyYXzkiBrJXxGaboAFYDGbdEROYi5KVHAgkXNXWzlfqkeWOEUm1TSydO+rzrg1/8ojvSwl3j7pf3h1/V tC/vN///JX64N2t4/tiiqaJid6W04m50th0PM6ubDuhGJ0yB4bwXmo9P5lVVx7ovkiTIpnOPu7rmsvHM elNLm5eioM343k4lC8f8l3bA5q7J8hj4p7X1yr6dmI Tyj5hmGQbF7v1GBtv9m9Wlxn4x4J3u7os9egoTwN3z1lb5iqjNwA7a9li4gfQTim3KOtxW2Kyt/9X9E1 1+qiXHdbRw5gu6n6wuGT/3Hr71QGfd4GF1hwGfn4v0hD8tpFKh+Y6dSQd5DaqeVn4fMAl0HoulZo7qQF y0g8yR7r6S9tp1k4R5cg1j1Vgra1w1NixI0o2NFtw1 l8Dxxa3w5Gsoq297UmFw90ka0piWjtDCj8tk5tbFdkRJd4fd8tqRqWTJPs0WRnmO5Aqi+dXfNdTVTXlL h99TrGtgig5S/4fq3ZxvQQ1zMb6JvuhlT6dGr5Gcar7kd954RaZ5Sbuug545GlH6Mmfec274E8u1g6kC 3q8G1dc2v9D7uu8y4Wkym4c3WIqA3y9MLag2x2Njuq 5z0Dnxu888RgXj22ZR/IkXevFj27II/CuKxhZn80QE/SomvKTQ+gVijS5CgW//EndZM003koT9oN7hSb 96n4ej+p6Tdgys5aSN8dMRwC/dE9w/tbXB/t9Ms/xT6z8gtJL+gHvp8qAzPKn8X/Nx3Q0GSx/jATa0Zd G+00+Aa+gb/B3+Af8A/4Dr43/vOp8AnHhIpCP+3NOs fuipu2DYi1XKJ2qApHrc/SV4hvvyH0IMwmFKKzQY802+Tzu+Yf3v1g0y6U6lg3bl32/Qz3igfHj/udAr 4gn/kqSz0Xj4Sk1t8E7v7B/tFez+ejvTcN/gH/gO/ge/ZT8daA0sM6n748bovCuzzgXQybOceCIDQcpT 6fo1IfJv0//vUXa0i8sgsFLky39lSjVNNsrzmrj+Pa iHq5UyWwj2ZU76x9//u2d2T/Gx67iky/1FGLB7ri+RgtjGrci4gH6Teg68ZE0bL31VtXug3lg66Uf2Rc T6v6vN+e38r/ZPrle/57AGlm89je87go4y/9RP0+HJnnr+mwGvb4u2Q5+3AzP6MMavj/MudI8B8as3Br 1fslM6/n3/p4CX4sH76/7u608hhiIrF2So2nDYA/We 97lamzMwEXxl5vr/frt4dX+seXyme1/Q1ChWquzp1gH4T8Wz93FPf6q7fsus/bn9Mb44IA+82xbxi/dr p/mvd4Me/xstGfN/rzHt3/9+j+vwV8AX+FF7UrfG9hsqUx0fqiR0Xa3F4a40K+RS4zwTbo02JNmPPM0y B1NuR9jB2CUaY6BK6tsSgIy/XfdNwDE0CUM/ANfMzP B+09eL/c3Dz8dH9H76ceI+nO3zE/Q13aj56K0+e6e4384cm0Sy3Ph/freL+O+iaiNksvS4n94AesEoXv 9/wcVzA7/d0PySVLcvAOpUV/gj/JY660HupaU8+Yg2nxBz/AN/A3+Bv8g/eCwkK7j/tzXLfsNPgD/PH1 B4F+WflkVDmSX0Mt5O/ps2mkkWulc/hF5VRiK4P/8P xBPo5y/ZvfJPWrmwZ/gD/Ab/1KpPVJkQn+BH+En5EK8RK0++NgSs8gXzAWp07n/AP+Ad/B90/ot2Hyqo z2Ec1HQ9FP3ITllxWGbPh3h0BgvA1RUq/DrMMi9U/ks5H/Af+A7+L457hRI6CNlwa71spuze9YzcKlUS i3T3QnvF+9wF/gK/ja/TJiPt5SmZp7RS323lrOm0KE m4813rohB13dFz9EG+1VAX+UX6Dz1P/pPGn4B3KcQXg91+p1D6hbHJ2F3mO9+MlobG4sduaiZlXYEiCg xcfBn9a06VC/G+ZnW+Av8BX8/o3M0XaPEO9F/Sr7oaE/H1dcMiqcmxlc6jlE6XY5j7uTU11eWipQ/SrP L6d+ddPgT/An+Bh8Qn9Ws+Ab+Ab+Bn+Ei8JV7oame0 2V1q/tqV/dNPgD/AG+gC+lsfxtX6SwS6+qdK/0UvEzXcvvZyiv1CC+Pq0/S+hJhN1p3/6iapP5yYcbI4 55p5yI82OJEB/8DdStuK4a+YY3UEYM+agvYnznQ5z19YhqIx7VHJ575apzfQUugvthPE07lrmtWa5z4p rkho770cYmAdBDcRVs0gcEP4/sevaripLvgBgqu9vO iiWTuJ/4Wx/tTP/4UuW+7R3Rf+UhGl9r0p1ffm5W0HkFu6rpz7q7cJxn4t8Ng2Pu48rh8yQn/+YaNm4l Us1lI6cHbiz9x3h0Yc2rmF9gvR/3y9st9t5+c5Bk+h6NlpdeBuWF7kVNp5tZnPg4aF+6GucWnk8jStL/ a/WOv0X0d3/eQX9dighKgN91ZX/3/A8IHgp5Q+bzvt +ReYZ+WZCE7D4gQNw4T81v8NSbJ/6ZZ+jQprkygp01X948Wv7+m8rjXwN/yjYK3i/eFvJ6mem8ZWoQ1/ NM/aqe7/e5UrwpM/WresbxfK+C9ix0xj2WA+Vc8Y179/rznAL+xPMT+SzwF/aUovSH3j80k42gH3+esF 8A1J4k6Jjdws9juB/G6B7v7lFQAN5/f1Vqffx1Az8J f4G/wFeUi/b8YKvIk4Z/wT/gH/BvdAokIGtI9S379spAr4nujh9hNw8c5VjM/NfKo7gQj9s4nuJOr7ef lloCwIj7S8t0Jw3O73X/3q+1PhkXBr/0AH+AL+AL+RE9eDtDNtV6Fg460JlT+7X+Hk3D+IX9aqZ+ddPg 43pmGu6/5+1m17q5teLI/W2uhzJf7yy2t62/Z+pXOe +lflXphecXnlfwFc/3/bLudu1i4pV/4/oTvM8ii/C9+xtz0KK1A/zR+UO/ufnjTChLE2Fy2U/wFXwFH+ 09aG/nH8CZbAp9o9pJ81Q37rzyq6qFrb4fCu2y4w2pNq/174R+Ss9Cu0X7/Tt9ga/ha196Nb9TYR8Fs2 pAlxo1n+kHfAe/7Tnr6e/Reh7wB/vNkOFsdY07xxhn +D1+19PjN+19xQn1I9/A3+Bv8A/4B3wHv+erNXq+TtWEz4D/wBfwBfwJ/fQw8M60BwlqcC7kvlXh080U +8Oqsq2T41are5zazX6S6+D3jkct3Dm9+SH0In9ZD+GN2TuUP99+UwG2zYCa13mE63m2qDF9oCU7xoN/ ZwIbxpotf62q7uoCUUh0eGWO/gB/gC/gC/gT/J6f1+ a40Nk9U7/Z8/MpdnnBzue0tT9qzM+t2d+mUWmbVXWG71U+tbA/uFK/Spmvtj+d3hcEziggsqN/WrBfLd ivFuxXC/htVwhZyv2L3E+2Z3gE1L/w0Z8X+jGCy20PfonsAmvre79Qi+93Bt7QY/1ZpfPXtucsbXtOXL i4jaobfg5rD/q3OXj432U0xvokcf+ZjvbedPDzvwfP K7vc2jE2uf+29m0QzgXImjSpwrS0d5i+8Kq5nMs/Ru2F2zf3Vklzhqz5n+8Mgnfw4d1jCvA6W/gP407i +czn3/Ye7sZC8Jziam1jwuG54LtgExF/4x1fvlBd6eab4/n2W+YrkN5Fwhvbb78raS0+28529ylHQnm7 eTTsepeTXd6z5f13kJf+tIJv0XiyQJvvs7f36zeXI9 2iQbQcG85g9TbCoKX86/t5QbhjX3VSRw8hM8Bt+i7rh8LfJdKU+92V5/t+mbX5455ATeF+L656Uq7XA7 Eq+1WmMV/TybDU16Nc9Ndn2p8gIgcew/eD/nwW+Aq+gm/gW/f/sx+kwT/gH/Ad/ZgLjtWrrgx145mUFw wfhPSiHS1uwYz5OqORE/fOvWGy2GJszhjv51plrih/ NvLGp7byFQ8i3d/CrxBby9q4+MKCTeyM8ge5i1+5V16itn7I/IXn+/5d0jx3RCkw35C9vi0eauT/g3/A P+A7+P1+dbS+JfndhtfX6cy7Yn6SjtOg4+RN3Nn7W/vZaqUj2Zh9Cn0FO98r6s0bwdo15eok7maka0V8 qV/dNPgCvoA/wZ/gL/H1kyKY2peLmoBm8Mk+b9xp+9 IH/AO+g4/7J1y61rrjv4EKS+js/U2vUk3V8/minm3ig/d/dbb+rDh/pTh/qnbvMHpG0nnek/AP+Ad8B7 /7m8C1me7Wc/d1DfAH+AK+gD/Bn+Dk1Zm9mB8WjjsS9yiY8nE7FxB2cl0kTqlpRxg2wNicL8K4Cio4aD /1kWJ/ULE/zKejYFeqNWTgpo7PDe1U0G+qGvgG/gZ/ g9/8M2L1U3q9+H1+Q2G/AwM0kf65jg5zZmUjLtmTLzmh5QbL+5JUokJF7vH/QZ5xIsEWIsB/KBfvF+ev 1XUiw3qunwH4I+8mR1l30383s/F+N94vzl/hBrzq8l+6FXy0d+B9fIM93bfjwMpAWw5MF3+o8yqUgmu9 yj5618M4x+3PejB+M2xgDTBzhx2UI+8vaNqvZvKjvT cNfu+HatqvQp/UtF/aEMlb4v020CqYoqN4+d76pKZ+VekBfu//qvf+b4eXC7CL5g934+w2JjodjA+jvW m/Svl42+eZ7h4u6vP58uECxok0Wc9deiboi6Ms5JQL2lcXC/AH+K0/46I4AgusQqjP5//as/D8Al/BV+ RjX/+xp+dne3p+tqfX+/YcPH/Ad/Db/myjz+fYaPuk ewMR2egze99961507549w8Aj187K250n4BfgRg1CGnuNu2J6EMP2GlNO03x9or0xO9vcqaXndmUje5B2 8d8teZVVrPyb2C9cD3TSbudxp86Sm4mI5lr544UC99iAxxW7ym5UsZ/Mb//UMr3QOonwfld/cxxae156 fP3Ws/bqV99/NkTBcvG4X1/k+gwnrrBdfVyt1f5mB2 Ze/qwtUa4w5O+ohlVKg0FA+p69+lXtKdurX/3bxTx3v22i+khVynoP9ElLpk4Sf9l7EJr6kyNO+tUTbh zx3OuE0db6TqjyLucZoXyp98q5vMd2Dbj/9Maksl4nB/yqK7b0W7qyKg9OJc4GwkmY6f/1eRVbGL/Qrw z6lUG/VjuNUf7DmJ8f4E216M8y8SfDpbFPhyq2i3xg I3+MX+pPgy9izaweQT/a+dUfMe4sv3ua2n9hwv+HmmK+4g9eBxhy5AJ1Wl4zl9tGmmfcltJm+RzwD/gO xr2bQYO2Tu33eRhNRxN3Gznks/y5Nn5Ps7Ip9KK0ssWb5qn6UvI+oGF/0LA/pTibo37dy0+O9a0Bd93J znbEmzX1FU+Cj/l5L/AxP+N8u+8MBy21uN6R835/b3 sj/4P8D/iPd6lwD+b5JjolUb/XH8Nuq0Sg7Gm5eZ9rdrgrwkcpjlehWEGtUHlYE/A3+Rfiqbq4vK8P2/ fg/wD9dPh8b2I/4/hMQmzvzq90+qZ0Yn27a1zvD2rrT9n4UeR0I2F6I0HVK593fxTxRBSIM7x065fecs 8b+8W13j8b/fR6cD+93t9Pr/d2Y1Yh1U/wF/gKvn76 /Ib9asN+tZ/vE6nI3j1boC/fzwHfwe/3fg2j76qjh4fj0jqil/T+le7Ekld5rg933ian/arSC/wFvoKv 1Fc8Pp4Ca5L/UJ+Pxww9yD+4sT+4sT+4sT+4sT+4sT+4sT+6Zx6TnIwLMefwgoxuRhPn4Bs6N/wNPtor B/s7bj505Y0p6+h6su6aTlbk+PTbPdM+SMic4FK/gt /3zM9sOzhsrv/gG/BE6y4ds/4cw+9LHzx/kE/pF3Ab2kg06E5sf7WocZ/V36MN/TbTk5lKo/ZqfWOvXh /z6isezMG5tvB3p5CXliZpSp4T/yCfg/wd/B6vogGSl2o1uY/0Tip13Rs4N9HvKUw69fdn/v1m8rxKtN 1h4GWbbxrzQp32d668cdO5y+cP+A4+1qnis929059n 93+3tT12G+Znw/ybmL3rwe7fHb9H+Svyx/gujU6Oa5t95116Ym07p3KNjcgr9822X8whohu3g/9o794/ 1oor8Yk4zdzx+jJv07jxB9bnDl1B3thV/ivwo1pDUEs+Mb527//fmF1FaC31R18LN5huoR3unP1Qw7/t zf3E/epX8UH+z+ra1UxN9yo/+sk0/QpVoah3R4zdab Xnh/eJ+7Ca/84ZzdD7DGxoY2L6fu/5rU/6obbtb4Oq4yyjx/ymGu9tbyA5lb027zv32g7+ynuW+65/d6 iL82fft4B5MM+66e5wTo1tIngra07+A0J25mr11p5+or2bXa0P7o637KLpSpvTqG+4U32fNW6sMhRPc+ t8ZS63xof9L0kelJGwv9TSz99Ry23mw19lz07w+1XW c/c8A/1qe6+Wycv8lIxkvyh6X5/T8/PB/cHzdH8+T/fo9ca8wuh8/H0yukrW86HHp2Lt0oA6KKOo4SCp b/A3+Kg6O46He/qVlwua2W65sT98prEgsUbte97foB9q4JdOQKe4gQpenMYuQXkmcz+d4sieN3h+fMZB /o78+4uJbn6sSTQYD7Xv4Bs6Vn7yE4kbvI92y8Jc/u uF9nk2NdnGwjnCll49qaN76bxka1xk+bR+dWZ/j858wO/s4Hw0GfaBJQ/9eU7wJ/gL/AW+gq/gG/gG/g Yf73fi/y2WJsgk/HPtqu8C70twRqPwylX/0Fw803V2k/B+Z09fSl7f9D+y12DH0w8i7B91hS27yP668X e9qu1tid0hcl1vhjc1c/PtB+unS293LjHkWJ8bF5d4 09ADzk70yW79oG16qK0v8EnQNG4qj/YidUqHVc0z6vCK9P7cKG56+VifNzvW+/uIpc7oeMVi9Mn762QB j/V64aR+ddPgK/i96orE0ynPGVhG7/m4Ele6BrN03+HrV3zfspdalc/TY2WP9S+lPa5Xt62j+qwnj60f 3MZdaI9Jk/wj6O5n0ei+D9jManOkQo2I/4B/wHfwe7 7tdY708Xt9uuo7pct5Dz4rQ15T49Ns8S7X7m2467E968I+dWC/LyUHmP4ulyj+Xl3r725c4TbBmlhj1F vk+O02xymaq6Bz88vd/XW8X5/yE14bnUygw2Jbs+MMP7WJv4pxtquSWeb8/YCP76+hihEiCP9U/HnAH+ AP8Ht+vzyn64eP816mr/1Bf9q+4Xn+alb65e/0vRXj 61Zt07dFbm7//vR5JP/3R6Vp7ns6MZ/9EsBRDZAi7V101TjWxw16h1k6zT7Mx4j8wrTwZg4Y6cuHZ/Pz q+Nxf3A+mc+7XhDL/77rhZuO/eSJpo0iE47L362jyIV4nNT7b8/5JG0Ogi1RK+9TOI6sE1p7kU/3K/3V r+dugkhev3LuEc2c0rf+6ld2Yg/MJ16x46412reiRF jH/vUreVcuU7mK3SVp6x9uQ+0H3O6hb1mnrHJ/5KjgB98ePyaki6oI4/6mu16it9k6AUOc6d/VDe8X/h d49yiAmO/QcX/HS72z8Cy6Ew6H/An+BH+Hd6EU3Cb/xWfvp/r39Imdp27B61I4S+pe1Xc6QG+9n+I4f+ BAJ6LwItcgZ529u753M1JuG+g4f+U4f+PXeUo7p5oe 9xcc+pYGU3HNr4XwRy56fbBgHzJxe93x5X4y2E4sf0Pc07Nj64k35N+1oc3T1hzbh/7C69zNzQxk0uPq PH+QzwHfwe/9ULc+z+DW/kbcBvgDfAG/z+k3qp88uS/gL/AVfAXfwDfwN/h2BwSQE5PghF/2rny+76f4 0kfukks2o2c+ddPgC/oFevO4Ez06Hsb2+2dw+Gdw+G dw+Gdw+Gdw+Gfw8s+CyMC6H67m/MHzDr43//T+vp account director/2R+ApK504+AK+gI/3LjC1iV1Y8B4w03R4Z7+q/x [file] H36M1s3352n6Nq4y06tq1PKtkmjcYr94fE0772+HZ3 2tZ3dmf/TnrNuO/gvsyv6649l8y369zeFgGbk4J1+vU/8xFE7L32rg7Gn2Dz5O81n30Fm/G+N3Y/xujN 99kI+D780/z4M0+GK68kHQsV0oL8w2shy+BH+Bv3oeO/niKb9Lo+Dvnk/G6lrblO7997mioFCcJYYNb/ mrtjc3Pz/AgcQ99mf+Z10qaaoB/EY0pUz9DkbDc0nx 71HeAac562WgDxqcos/jvh+cV291jp42E5h8j1Iy8/j+lbtr7lcqOP5vg9s3sZcg2GKaijrGSx/8PDn5 UhL2y7U5cT63lW/Gig4b6inotmZ113JpRecy5gLu79Lu+m3vlw5+Jw7zgRQ/4B/x77yUpy/32Va80Dvl W+xElaG68bg45FmOv0R/wc/9Eh4S9lVAj1NgsF+VrE K/KtmGfnXTG/wN/rt4QomScz/Lt06755B/5iie4ZOO+sQ1GYl5hyElZ1RsF/An+NGftdLaaQU/+rNmuf y198x9BQ71ih7KUNbzIcVR4aISzV722/Gl/eln/RxMsjPm3lj51O7T3Kt5Yl4qb1H10gdJOXa7djmrlm /wBjs7Cw6Th6ugX3tRy/ZOtHc6+N780K++NPgD/AG+ gC/gT/GM8jXhdev9QA/BN/Fk3iN6eDR6Mh23Re/geX+Qbr4+D9Lg9/wctzi+tIAv4E/wJ/LB+1LC9eAV K/kBYs9kov/r7v6mp/u/pf0HAk543bay602v+zEqHmm9v3D/m4A/azam/idMoQx1ztzgl/hvEb+tWXBn+D v8E/4B/y1h5ldQ8Pe3FzNzZNgivDgZ97mGtaY5EqZ0 3ftE2wNHlr55+4lnHH+0Z/3ujPG+93Y/xujN+K1qubdziK80g0PAc/B/359Ho/bmLcPnZ6/Oa3FQ33YT /Yg0AGv4OmuACyzBP4/fQiOb3+ldPrXzkb/A1+r3/z7sVNO/jez4d+9aXBH+UC2OY7YA+CP7tc7/Vv3r d3iOMfnUekPPb46lokY0d+hX6f21YUh9Pznli/R3HH 7jsJh5aJUBoSy5itLjeW00t23Ut4LrK6B8E+7MN7hyrxVNS285fi/jHkd1qL3FDwp+G1d7tj4/b6zv++ +6BP/xguSi7k/kfcqoiwvm/9IYmNh8lOUjfU8+UCLmQN57+QSVyo+OW/Fv14RVcRHyI1Dheh71VvlK6O 1EDts0MMbLD0krpg4UmmWbI24ymZO2aGU/JTZY29cf 23f5tlkGSb7FS6xAO/X72pXjdjrE0N1f9x/zbVm1hZ/9atcXvipkO/fdHv6H0YG4N7sR+xSkVhcW4SN/ UM/resDeeEzyax6kNx1RXxCFxZS/Srke0K/PpXkOFcwqauoAAdx7lRalW/O74rT6sb52811+Af8KM/Z9 9L+9XM+qe1ZZde/Dy97Hq5Q824bkrzdD5I0BA0HC2n inWDC69gSA/zD7627PLfe/A3+Vk1P07fb3mQeeUz4yfP0/Zw910z9LnYVsWJgEQ2RgHk41Byoaf2Gb5K dBp8w/D3O5R0aP1b+Vz/Vvqb/2fqV/SLkIqsVCo6u+cHtQ5SfuGk19CwyU/O1K+u43ngsaB7jnk98j/f uxsYgUrozOwl7ygB+tWudM+RfG06zjCMO/aEgdLs37 BSh96A38f32/Clc/0jc2V6TXHW+Lm9c1vaiQVESoutG2Rdc9uJfc4DA60fE/gGvoG/wd/gH/AP+LEezH Ea+lXVJ/SrLw3+6PrvbG/ne99thazfCQL/CyoJsjUptciDD4kku/pVzqWpX+K9AI4f7DjP+lWlN/gb/A N+0zoh4yx9Sok8WhYjr+5+lfqVVrq/f1adAL82dL9b B/059atKLzy/8LyCr+Ab+Ab+pg1lcYKh9ZtZrbqnkSc8hCy4k1tt9NvBLuMI2Aq+Eu8GV2Sjh1wnb3s5 An+Br+Ar+BftTtgoTb2Z5g2/fN2y5wgYaDF69J5/z6+u38c57Vi2gkM+AF/AF/An+JI94FQQK+Uq+Aq+ gW/gb/A3+AflHpTb+4ML+4ML+4ML+4ML+4ML+4Nr9P v9NiNuU/uG30x2z4XNA/H6Ym3M01LmtR/ab4zuY0keQrd/GPP/yv3Bm/76/9POj6olf2FnCVr+vKTtG0 y9a3YKzU/gT/WD6zoPA3a+Zb/LeFHQjr29tQAAah1tns+XoN9jBtZ7UHgTiv3KKwfm/pwVRzzss1I+lf iFonfi8wf3vqSvmXIBM+7K8FsIe2wN+50LfMXzaG/a r7KNs7+/a6K9ab+q+bQ2c0E5tkVkm80eZK+p45Ce2jdQ2bPb/zpklgp7cgjx+BPPL/AXnu/29HD9YmuD K/QyyLen5Q3FkvX/mqsF668cA626+I58Wp+GohQ6praa70jYZ1b7WOG3spQ3QccXyMyGcnM+ZiH/hXzw fnN/MPSfuCxQ3/24K1Df+ozl5F7O98+lB/c1qrxkU4 jy0d4/Ekg3Mo5P3j5Qu9v9R7+q59/9fh7M3R4hg9dyL9mgSV1ZhA/bm/eWwGygFff53cc15YwmylNJ3e YBeBLx4YDF0ii6ICg/+3OdV0BFwBNuMV/x3/jsqihsEldFlC2u1cgLs2Hho2bdV7om5ii7MJQ1cABCOQ XsLB3U2O9nZRREO5/jW+Q6+Y5e/WqdkXmuly/Jf9e/ LaUea1OlEBOt/dn/l8CSt4rC5ei526tzsKlqukLbeTxoKCH2KfPW8Au/NuvVFOjpkKaNAWMsQGjGGYBw [employer]PER+lf/SsV7q2Voi+b/j/51w43P+ccxdaaB0o/hvO/znPDd//vq8zqOr/4nzGtjeYy0SyAGmSo//wcf6l Y/0m77F9aYg+TB6sqSr9/v/tuCGaqy6J/mx4/N/21P bIo1y8d8ob7yiihfvQz0YpUv2Uo3g2Cu8Y55q7HKdr+e/U+lWmW/V/rV+pHbR+pXHAa/96xB3b5uFnD5 6tX+fd2PbA7myTG8BeeRmpP8lA9i1YZ5o3xR5Y8AP4np6nv/l+GTApRfZcG5jYGi289SuHg06v6kM/hn 72Zqzbk1lde22Bmrh6CrEhq6EBeMH/MtgrZzjyV/q9 m6Znv1gqU16GM1+2Yfjwv/LXfD88+G+61Xw//SidOE7lW+n3fwnn/Xl12Czrbcm46DDxPpq2UNR6Wm66 Uwz+C3Eai7okU3V5IITppqct+Jxe9wfg+hbT1i49Ts+7wnrZG+Cmp3PVzFkDImo+xu3w03/vEz5SehH/ kIpk6nbN5jWszue23JxlGFg/zfdN+5DYi1ekGahGZl 44d92F42Hh1Z0oO9yYmetpr8ot819Xkcay0Hh37/0fTfbVTUNf+/sm+rlOSx6iK4n6F4HLEj9OQwoTYt u/zuB/ZdofjH+yal1HF4j4vsnG/YTeoDfoF/QL+r31kb8Yd8M37Ef/w7R+ddPQN+gb9Ph+WL9bEcO90C nf3izFg5G95Ob9X/oN/Yb+QH+gd+xH19J1XpD1dk0e R7F8OWT/sCWitcI44YsBJ+0Ppn7i+pr/7mB2O81oml1blTu//5f2fpJ4omW+0W627Mbgoim51oqvEylP Nv5H2h/Ger+29ov0992Xdp8bcP30h6f1/zXtkG/oF/Q1/aJeZ3G0LG69L8a0dnI+4OG/UHD/gXjo7RA g77j+lq/Ob2vsH3dRw/S+HBq/9dO7f/xqZn8CS5u/S myKb9JA1Uzhrbt+3Zqf9+1cxU9M9e/8L8yx/w2nV2Hv5P9g49ycej4cmbn38Bd+ZP5qU0sjf/XMV45+r CiY9y4ayg8R83Xf/1AX/4Q4cXXuB6eR29a6JcR5kLJwnnrrxY+0ri+/OvCC/6lJ64v+2p9tZ+yPoN+Qb /j7E90WqOS+rKvluyrzMcr/1b+aBghp9h8ht1V1X8t w9y946kZ+tudZ7lzkvEr00ys6ogR3NxVg6/zelKUzEQsbl2vItblRJb++QsB9r8Qj0Vy/btkyX6fdh7x hc1qft8pKbsPN9qKceBquVb9we5VqTQ89TuPX1v23Pc0N12/++bnSFGo8EXX4/zqmoovuMK+OlvP+tV3 u46vA98hft4cci7789doR0mYlph2mfcaxs8RsS0K9/ vcmA+G/bN+6tMRisY0/ITX7/TDggl2H03bln07y9qYdZ+qDL/XiwQO5GdTl6LAhKrmVMAgchxvw7okD+ yr75P+V1/0Ibout3nlBxArppuu8Ed+7EseR9Xwp96GlhxE+1lygrA4jQnNMysHacT880X7dhpn6vnMlc arR3nVEn+2shaopaY7xxnp/Vn9Z9Z+7Je3txDcvP5f r/RarV732IeSTS/ddI0/b4lsDTv6SgOWbzScXzcMG9csT3oQe75Qi36WJ/4bC/cFld78SD6ma/F5Wdkb gos3Bj2SlfHVrndqTG/b9avZyy2iv5jL22hv4pffc/gp6ro531BfM1Sl5s0u6X0qip7f2+8/u1lYK8lf xbO06Bzs3db1uG/20XQiH1Pvuu+tVevPS/uD6p/aH7 zp0mt/8KbtzrnWLn/mlj8ZFSqqu18u1tVBAmyr4Ot9ck34nc1BSl/+eCQH2UBwX4Lk+QNLX/7AK+yrqe 0i3FeUma7epmc6JxsVB3MnjP/Qd+h75R/04YuWE7DqqPxDd9Er/s/w3W4fNgzn88R4Mlon0/acav9T+w ce1U44M/7Si84hrkeAEwrOjl6Hw54G5OG40jYarbnW 5bW/v+EmkrqFN7uBy69r9yfzHjvp9n58/fuqR1O832Ldurw9t/ZX+2Ub+4Mb+4i+9sv2V/tl+xvQ D+mg5TB8vm19u1In87v+mrmyq1E/G/oN/YH+QF/+rDo1hhBi2dl7+6Av/4dlea7quk27y66SO1Oy7F/o Zv44AFyBK/4qu9X/KMglX/pAf6Cv/1FE/66uekn01s evdhwJu7p7zEgNfOf+QI/7rdS0h018V4oT6U/ks5D/hh7vF+cHd6//75b/1c70+7/bJkgp8jc9ch2mat vnB/fA+b67tsUcm1P+ArQirSzajcydD9JtWp/fPer/p2n4p1kBd/Kag+sd+qls7KX2y/gc6zl88ny1j4 73v052r/JH2jg/uOeAfiKfmu/zPe2TlkoTv/pOfL8T 3+/E+534fie+31y/jgUwyzJRh1W/V65v3Mja8rW01r/mCxXQaz7EfGD0Qq9Fs1bM02/h+8Bse3qo0S+N 83tohJq4Jj/f2B+Y5IXj18rT9zO3x4hHCl00v/L6u9IObO0XK8Dy7Bn4Hr4Xf6N+Ml3F00AXfjK8BvPy 7MEyqb1518p/7/Pt8Xako3rfhQp7Qgt91F/sjf/RLn +Dbyrj1WaB7/cuf7Mt+2q0Wsvha3iv3rLqR8H61phy5sCqZF+TSWa0EfquyU/vr4zfurcKY6S+0t5iRL demq/ce30Af5Q9D8+lH/IO+8rDfthhXymS/r83wwv5LsjY88M59Jbpc58wa9nVp24scdvn1oHEr1Z+qL qf/fY398++mrf8v/8P1lDup881w44q50LM5eZfJEUM /57g5rnm+RVvj/Aeqwd2B2/qQpnhu8liZuxZq23ApeibZ4qC0fLpTY0kG2PQnkY48F69YdHV8EcDl4f7 +0c83OxNu166b9220z/borUjl59bGb9jMoF/7+Jgf/E14q6oo/fjC2kxWtdbMlzsjfc+G+er8+znm9BP 7DXLd9Fe8J/kX/bG+Tbyr//v+er/e2WpTwoZN/bVgX 11WoO+7KsD++rAvjqyr/K2yGzg6PFPZ/Cv9Ow0Q/qyN06r/ZTTan/htPr/nlb/83V8OIfY//f0+v8exG j1cbpfI/aiRoovxK36yL8Vr/nCwfnBg/SOh9r00+m1/nzS/4cWsU2Vln9FRsqaa3+uV5d8qS5G/K+O/K +in5+wr+L0fdh9B3HbN55FG/8WhOFvYvmMursuTh7M fkI/oY/xeSn/ZF5alpLloQ1zss44ey5U20QC/WzXtMK3h4476g91Xw9soih6/RsLmBGzU2a/1xb3SmyF 6SeH3oXmxNrz/j1mV4A72itAh17/4ruI2f4+Oj+2B056NB9iW6755L8fypd/an8w/e7Ile04Ce4jQ06Z Ji0skUB7p2EnqvFeA9voF4nt6dHNhz840S812K564I 26zqT7lxiAcCGUu3M/eFbNf8+q+h4DRsyJzAd+QF/2xsH+4FkT+krQg0xmcevdw2P0cDNpWH/oN/R1nu 8gEg67Et47i4n8xic3oj/k/zEJsk4nMS21nnjj/lMI2gBxusweugDtG7jt8G60mz3ljA6mi3/2B7MMG+ XE+JsyslV3cCpIrwpkekSVyTbF+aBv0ON/dPA/Ovgf Hfx/EZ/hnNo/OorPoH/1pwWcw7x+Njvb2hC/b9dh5It/58j/SuMG/K8O/K/OKX+kI/+pFQ104l/KdIO+ QR/11fgj/6tMD+qrbv7PF72cFmeC0iQq2M/oN/Qb+eF9dJ2rd/KN6wKwPkvSDMGdWy5+VX39q/q67Ku8 Zjz7zb+aHznsK/9qvu9f+W84/Ntd/b0z11gAGZ/KH9 gVnyHLU/9tZ7uOrUdiui3lC/znOr552Ysk+j3YhuY2gJt/zIhr3kY3o/MOD/bCS4bitD+0l+HzC1dA23 Cv5M/pYV/dPH/96Z5Xy00gxG+tP3ur/5G3Wt/wVu/Xw75q+vvumwGK1Eg/tSdZeUM7WH0pP41s6lr/7K u/f5vSv/nCS//08e/z3p+fp//oy3sivH/5Gp7oWd1i p/f5/Dn9Z1/zHPL2uRiB17wln9kGK5p/2AYhvU9Ky7PC9fSmOR/ysK+k4tHJR6c497Ubcj6xUF7d3pMp T4cg56D+Uuwd1/qV2l/rV5/0vfr/qO/CkB5mHun7e4oM2rthb3dG82v58Mw3SK15z/ihy96l1N/oOj+Y 6Zrv+6j5vs/f70pbB9KdP7AaC3TvZ9JqS/RZ+90+a3 w8WwBjkX3asXdjfXHc3/pcgR0ef3fp95rwM3lrhA295adl/u2O/UHH+pXD/0dj7I2EeWh5Dn/hOD/oOD /oOD/kUjXDyOD16ritO/2Wx40305OeNLyxw4MvI1k/4vyg4/yg5/nBTD/78xQptw7s/1h3D39ciIn5g0 CdH1R/0/bO8AmwH0ps6Ce/uZrFV2awG/FTqT0M967u B0+mYxzWNTE+z1pl7j05b200l4jW1r7CByeqWP9aT4Hj9D2aCMBf2FBLeb6L+a75ke+bA9dRo8T7uW57 9gd9L+r00VWj3sj3r9c8x3sA4l/Qe1g3w1i5X/3Xk2bv6z/zU/Eo/NF7Qr3y+oHrB/KJ/goB3Khlaynz n/IHdvhfOfyv/FQ8Cj+1X+un0vl2iJ6dr+o46bRlu1 S/csS/cq/5kXvZz+7lb+Ze/christa/iJM35yJ3/5g3lv+z+6G/Gf1U2cbdb5Sq2IFex/yKi4JmO/2i2tWTK [file] fCzZlcXHkvaB+UxsxhadL4culDUTV3yTlpLlEX/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 [file] u32589x2x25/n43bG3a5Ul/zm4764wzhlX6Y5Niqdw1HssdNoyX63hGm6D8/K5n4iN00GWTZ1565D+jr 9/+DY7e3944Zhp/3q/Ipv4g7W1yJgz2Gi+ydHobNvp 6dSO8n8Qbvi5ylq6+fFgxuNtWevc7FCGTS+P/YH+tP3pE/P84ttfg62t8m+wM748sBU9+/764dlm/3N5 sv+7vrT/mAN2wr196WX6qs31xc52YW14oZM22z1bYD3hj/XvV/hh0zvJDzh+W12t9s455uHp/ctQ9fMk GOD70u5746ga0uJqfaAeb4ys42F8u3DueDow8A58x6 fP/rw9v/ys2wKTxok35dVwq/I42OQrAigFMnPL49omeX5OOP35/kTPLl8Rc7zTO0h2q6bmy5/jvj4trW 19c/4Zn/ty1Z45cxJeiV5wo5KjtqWk+sMZbKyy1asaxLsSg5aB4Et3JPYqE/EkJz96Ebc+/pse3LCQU1 lu7m6/kJe5C0FoxA9t81Y7s6/13b8cf2i//b59+/pv p3x10Sl2jm/+4/Kkv1btOgfpWQ31hLdw/nzil3L+d/wp5CeYQ51WqXLhO4W7IAvI/O7dl7/mio7en2y2 7Vd17lB8sJCX83/+Y5I3RDI8F/LoWiq1q8gh1a3RA/A0esrcCnIWxbRxJ6fF82K0tY2k8vwrpLsBGE20 +5E2r0AB23v4Jn97cS48hRUZyy8Q3nu/FX78EE847/ 30P9AkEr/20eTHb50TwX+y97E1sMRf+iDFPW4e1IW+OG1v3//25pf/gt3sF8lnVbdJ8KYFWF8cvkMhRt fbT/883/zbD+8fl6/z4h2v24bO6UzCX987+JE/UX6EFMqpSNaoYOw9vmRcBpkmIGqouj9yrv9CQ3CXsj cXcAmod638qhvglX8+nze//rH+e27y4kxM6RSDM6/V tv3+yw+fPzp6/BLfvHn3+uePfuP+EX/6+p8/ji059pu4tkozPjR21oZ6g/Dd1HNS912lXze9YBU4uQ32 wN1/HT/ASl0hU78kti9YRg/+4/3bH8+9zmL2EgarKxjwX21202kyFsQM3GWHbJkd/lV2y7tPuxyw2f9/ bOf8EQ/vyt7cH0c1xLk3+sPd345J74pzk2nqoswRJ0 ytHSZndbt8+vNs3k744LI9CMrvVMd/K5nPTjhUGJ2jb6UuQBZeWvEwWU9niaksJJUaDT1pzdq3D5RdnV dcYWyXHJBuNa2ngTSgYI2DDBH8CYfjUVRaGNQdG7WhjK0hU40xiDXqAbRmRKKMCP2LdxP1AJR5UAS2LO UpSrMkMMIgIW60CHCnNGWFJu5wduYoQkdLGkMdKQ8x ebm3Q9U0aDQxV931yZlxrpKmUV3Mk2IbgJAoMS0EoBLyqOXmXNKgUVPpY7kcj5OtJSisSCOCJn5ldeHt MeuKAtOnHN1gwqe6N4T1kUdhipFoVCVKMQdgFerqJI6pvOekgdsiF3VwdBKoOCVfI0ZxRIMvb48YYLBx IChEOjIwMjExMTIxMDYwMCkgCiAgICAgICAgICAgIC 8GbFKrAVRjISQSGLfgExqzCDRopS8jlFWEu3UtC62OE99OAqezW9RHF6xjGXUuNON2SNp1MZTtM5Yrjk SygUTvRPQSUGzhUjdoYFRinO2skMsfO3UfDVE2t0BmST7TZ4OfEYPtQNWJALF5p0DwWKDfgzdiyepyVz YgHJLhQRXoXQTpOZ1Utg0fzBWvumWdWKIXXIrhSbff TE3wcYvoczelE8UfcZDzFLR+VqZnFB4oyu7+KsBlOONjEep4AIMyMFyaAJIgSWDzSACyS2ibYOUgErAt XUVqQhEgTU5Un6DkvEVtHu2mxgWlDteIqFDaCjqrANLeNJWuSREpIrWSAOVkNBZmMPFnBPJ0MWFwGALh JCyhDJZiYCHcAxU5BTGwOQGkPN4gCfJyUQPcXGBoZA yaFIDqYPFbpaIRPOHnPLOpWUF3QxLkDDBcCAYgZTtjNDFrYDVbTDUuHFP0CAM4ABHfVzTuUMTcSLFxAM UjOTYbBOFrvnXKNEIxNHXaRLU2NGMnWJLrLAXiXFtzLQHgFQDjYXkgEONvELUqOS4qAuJrKRRfPZUtVV ggMDAwMDAgbiAKMDAwMDAwMDQwOSAwMDAwMCBuIAow LRDtEAToFZTsLWWtRXHxKN3dUhIlQQKuXMD1DJPwTJPxMXUaiyUZWEPzIEAnYNf0UJAvNHWbVAEzHVxs CPOzNGOoTNR8GVTqDFLrNB9mJeUgUOVkQLR3FeRtISGbFHYeiiEJFACmIZYtQNE0EuWpWZFvJVJhIRzs VYJlWWLsEDqzUHGfTQIlMN2iKkVdVUCxBITaETwqMI VqBEFlnaDAYPSmSVNmTFBgChYnYUTcNDPlHXcaWNAlWCVtBWu8UUHuQDMoMF4fCvJsYEZiNBT4ONmzFS VlWULvbqAQDMLpZWBcDIozMMKcHVGvHTJaPUhiRMRtWSRfRKJ8IEOoVLVfPX0bPxXqQGLmHGCzBXBvJd G9XgFxPnJGfYMdrUsmbxd5JNahT5l9EXIeTObmBE0u lsWnKSGnVmtyLo4guHZ9AWOcFotHHb9Jb1UqcdG2djYlRvMdISC6NGrfTRDLIq== ID Date Data Source [id number] 07/16/2021 04:58:25 AM EST [facility] Name Value Range Interpretation Code Description Data Che rce(s) Supporting Document(s) TROPONIN I 1.19 ng/mL (<0.05) H [facility] Less than 0.05: Myocardial injury unlike lyGreater than or equal to 0.05: Highly suggestive of myocardial injuryCorrelation with rise and/or fall ofserial troponins, clinical symptomsand ECG changes is necessary.ALERTED CRITICAL RESULT TOARIANA ([id number]) [place] 07.16.2021 [place] [address] AT 0457 [place] [id number] ID Date Data Source [id number] 07/16/2021 04:43:24 AM EST [facility] Name Value Range Interpretation Code Description Data Che rce(s) Supporting Document(s) LACTIC ACID 0.8 mmol/L (0.4-2.0) [facility] [place] ID Date Data Source [id number] 07/16/2021 02:04:06 PM EST [facility] Name Value Range Interpretation Code Description Data Che rce(s) Supporting Document(s) NT PRO BNP 2736 pg/mL (0-450) H [facility] ID Date Data Source [id number] 07/16/2021 02:11:44 AM EST [facility] Name Value Range Interpretation Code Description Data Che rce(s) Supporting Document(s) TROPONIN I 1.51 ng/mL (<0.05) H [facility] Less than 0.05: Myocardial injury unlike lyGreater than or equal to 0.05: Highly suggestive of myocardial injuryCorrelation with rise and/or fall ofserial troponins, clinical symptomsand ECG changes is necessary.ALERTED CRITICAL RESULT TOARIANA ([id number]) [place] 07.16.2021 [place] [address] [place] [address]10 [place] [id number] ID Date Data Source [id number] 07/16/2021 01:36:57 AM EST [facility] Name Value Range Interpretation Code Description Data Che rce(s) Supporting Document(s) PLT 11 10*3/uL (150-450) L [facility] [place] ALERTED CRITICAL RESULT TOSARAH([id number]) 34 PCU([id number]) AT 0135 ON 07/16/21 [place] [id number] ID Date Data Source [id number] 07/16/2021 01:36:57 AM EST [facility] Name Value Range Interpretation Code Description Data Che rce(s) Supporting Document(s) HGB 5.9 g/dL (12.0-16.0) L [facility] ALERTED CRITICAL RESULT TOSOBDULIO([id number]) 34 PCU([id number]) A T0135 ON 07/16/21 BY ID Date Data Source [id number] 07/16/2021 01:36:57 AM EST [facility] Name Value Range Interpretation Code Description Data Che rce(s) Supporting Document(s) HCT 16.9 % (36.0-47.0) L [facility] ALERTED CRITICAL RESULT TEGAN([id number]) 34 PCU([id number]) AT 0135 ON 07/16/21 [place] [id number] ID Date Data Source [id number] 07/16/2021 01:23:07 AM EST [facility] Name Value Range Interpretation Code Description Data Che rce(s) Supporting Document(s) LACTIC ACID 0.6 mmol/L (0.4-2.0) [facility] [place] ID Date Data Source [id number] 07/16/2021 01:19:01 AM EST [facility] Name Value Range Interpretation Code Description Data Che rce(s) Supporting Document(s) APTT 33.0 s (22.0-34.3) [facility] ID Date Data Source [id number] 07/16/2021 01:19:01 AM EST [facility] Name Value Range Interpretation Code Description Data Che rce(s) Supporting Document(s) PT 11.6 s (9.2-11.9) [facility] INR 1.10 [facility] SUGGESTED THERAPEUTIC RANGES USING INR F ORSTABILIZED ANTICOAGULATED PATIENTS:STANDARD DOSE THERAPY INR 2.0-3.0 DVT, PE, PREVENT DVT OR EMBOLISMHIGH DOSE THERAPY INR 2.5-3.5 PREVENT EMBOLISM FROM MECHANICAL HEART VALVE ID Date Data Source [id number] 07/15/2021 09:08:10 PM EST [address] [id number] Name: Beatriz Quinn WorkmanDOB: 1945Sex: FOrdering Provider: Jorge Muñiz Prov: Jorge Al Provider: Procedure Performed: CT ABDOMEN PELVIS W CONTRASTExam Date: 07/15/2021 19:16MRN: [id number] Number: [id number] Class: INFORMATION: Exam: CT Abdomen And Pelvis With Contrast Exam date and time: 07/15/2021 7:16 PM Age: 76 years old Clinical indication: Acute abdominal pain, nonlocalized TECHNIQUE: Imaging protocol: Computed tomography of the abdomen and pelvis with contrast. Radiation optimization: All CT scans at this facility use at least one of these dose optimization techniques: automated exposure control; mA and/or kV adjustment per patient size (includes targeted exams where dose is matched to clinical indication); or iterative reconstruction. Contrast material: ISOVUE 370; Contrast volume: 70 ml; Contrast route: INTRAVENOUS (IV); COMPARISON: CT ABDOMEN PELVIS W CONTRAST 03/10/2021 8:39 AM FINDINGS: Lungs: Please refer to [facility] chest report dated 07/15/2021 for additional information. Liver: Normal. No mass. Gallbladder and bile ducts: Cholelithiasis, otherwise normal gallbladder. No biliary tract dilatation. Pancreas: Normal. No ductal dilation. Spleen: Normal. No splenomegaly. Adrenal glands: Normal. No mass. Kidneys and ureters: No hydronephrosis. Non-obstructing calcified stone upper pole left kidney. No perinephric fluid. Stomach and bowel: Mild wall thickening of the posterior cecum and proximal ascending colon which may reflect a focal colitis. No ge neralized ileus or bowel obstruction. Appendix: Normal appendix. Intraperitoneal space: No free air. No significant fluid collection. Vasculature: Unremarkable. No abdominal aortic aneurysm. Lymph nodes: Unremarkable. No enlarged lymph nodes. Urinary bladder: Unremarkable as visualized. Reproductive: Atrophic uterus and ovaries. Bones/joints: Old mild loss of height of the L1 vertebral body. Soft tissues: Unremarkable. IMPRESSION: 1. Mild wall thickening of the posterior cecum and proximal ascending colon which may reflect a focal colitis. 2. No hydronephrosis. Non-obstructing calcified stone upper pole left kidney. 3. Cholelithiasis, otherwise normal gallbladder. No biliary tract dilatation. Report electronically signed by: ABDULKADIR REBOLLEDO MD on 07/15/2021 21:08:109 Name Value Range Interpretation Code Description Data Che rce(s) Supporting Document(s) ID Date Data Source [id number] 07/15/2021 08:56:07 PM EST [address] [id number] Name: Beatriz Quinn WorkmanDOB: 1945Sex: FOrdering Provider: Jorge AsareAuthorizing Prov: Jorge AsareReferring Provider: Procedure Performed: CT ANGIOGRAM CHESTExam Date: 07/15/2021 19:16MRN: [id number] Number: [id number] Class: INFORMATION: Exam: CTA Chest With Contrast Exam date and time: 07/15/2021 7:16 PM Age: 76 years old Clinical indication: Shortness of breath; PE suspected, high prob TECHNIQUE: Imaging protocol: Computed tomographic angiography of the chest with contrast. 3D rendering (Not supervised by radiologist): MIP and/or 3D reconstructed images were created by the technologist. Radiation optimization: All CT scans at this facility use at least one of these dose optimization techniques: automated exposure control; mA and/or kV adjustment per patient size (includes targeted exams where dose is matched to clinical indication); or iterative reconstruction. Contrast material: ISOVUE 370; Contrast volume: 70 ml; Contrast route: INTRAVENOUS (IV); COMPARISON: CR XR CHEST PORTABLE 07/15/2021 2:32 PM FINDINGS: Pulmonary arteries: No evidence of pulmonary embolism. Aorta: Normal caliber thoracic aorta without dissection or aneurysm. Lungs: Infiltrate within the inferolateral right lower lobe. Minimal atelectasis within the posterior right lower lobe. Pleural spaces: No pleural fluid collection. No pneumothorax. Heart: No right ventricular strain. No pericardial effusion. Lymph nodes: No enlarged lymph nodes. Gallbladder and bile ducts: Cholelithiasis. Bones/joints: T6 vertebral body old severe compression fracture. Soft tissues: Unremarkable. IMPRESSION: 1. No evidence of pulmonary embolism. 2. Infiltrate within the inferolateral right lower lobe. 3. Minimal atelectasis within the posterior right lower lobe. Report electronically signed by: ABDULKADIR REBOLLEDO MD on 07/15/2021 20:56:078 Name Value Range Interpretation Code Description Data Che rce(s) Supporting Document(s) ID Date Data Source [id number] 07/15/2021 08:28:57 PM EST [facility] NT INFORMATIONPatient MRN Name Date of Age Gend*PT [id number] Beatriz Castaneda 1945 76 years F IPPT Location Admission Date/Time Visit ID Attending [id number] 07/15/21 1419 --- Jonathan Sheets MD([id number]) EPI ID CSN Admitting Provider [id number] Jonathan Sheets MD([id number]) Attestation signed by Jonathan Sheets MD at 07/15/2021 8:28 PM (Updated)Patient seen and examined independently. Agree with H&P by POST TENSIONING IRONWORKER HELPER Jasiel below withthe following additions or exceptions: The patient was seen following hertransfer to PCU. She had a rapid response for hypotension and tachypnea. Heroxygen saturations and respiratory status have improved and blood pressure isstable. She is currently receiving her first unit of PRBC. 1 unit ofplatelets is also ordered.The patient feels her breathing is better, her only complaint is of some pain,which she locates to her left upper quadrant. She had nausea and vomiting athome, no blood. She denies diarrhea. She is getting intrathecal chemotherapy,however denies headache, blurred vision, or neck stiffness.On exam, she appears frail and fatigued. She meets criteria for sepsis. shehas alopecia. There is no thrush. Her neck is supple. Cardiac exam isregular rate and rhythm, normal S1-S2. Her lungs are clear anteriorly. Herabdomen is soft and nontender to palpation. She has no peripheral edema.We will continue broad-spectrum antibiotics, follow-up blood cultures,follow-up urine studies, follow-up CT scans. Start Tylenol for fevers.Continue IV fluids. PANTERA to consult in the morning.Prognosis guarded.Mary Grace Means Team [facility]07/15/21 Inpatient History & PhysicalCarol Kai CastanedaMRN:[id number] and Plan:Active Problems: Hypertension Diffuse large B cell lymphoma GERD (gastroesophageal reflux disease) Neutropenia Pancytopenia Severe protein- calorie malnutrition Coronary artery diseaseHPI: Beatriz Castaneda is a 75-year-old female with past medical history ofhypertension, hyperlipidemia, coronary artery disease status post CABG 2007,carotid artery disease status post carotid endarterectomy, left breast cancerstatus post bilateral mastectomy in 1992, hypertension, obstructive sleepapnea, 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 Barnes, Oncology and had lab work drawn thismorning that indicated low WBC and HgB and likely indication for transfusionprompting referral to ED. She reports associated fever 100.5F".Patient was transferred from the ED to [facility], upon entering room blood pressurewas noted to be in the systolic blood pressure was noted to be in the 60s,breathing was labored, skin was pale and lara, O2 sat was difficult to obtain asthis was reading 40s, normal saline bolus, patient was p laced on a nonrebreatherwas started and a rapid response was called. Blood pressure proved after, withoxygen up into the 90s, breathing was labored the lung sounds were clear, heartrate 80s and in sinus rhythm.Patient was not able to give me any history, and is also a poorhistorian, patient stated they went to [facility] for lab andnoted to have low WBC and H&H and was advised by his oncologist to come to theED. however patient has been later stated they went to [facility] becausepatient was having abdominal pain and having a significant weakness, howeverwhen informed if that was the case she would have been transferredhere, he stated he drove patient [facility]. Patient's husbandstated he is under a lot of stress now and unable to remember now.[facility] and planNeutropenia with neutropenic fever-No source of infection identified yet- Lactate within normal limit WBC is 0.2, neutrophil absolute 0 , temp at 99. 1,tachypnea, Covid test pending- stated patient was complaining of abdominal pain,- urine positive epithelial cells, negative for bacteria, however will add urineculture, blood cultures, procalcitonin, chest x-ray showed no acute lungdisease,-Due to dyspnea will CTA chest, and due to complain of abdominal pain per pthusband will do a CT abdomen pelvis-Received cefepime and Vanco in the ED will continue antibiotic and add FlagylPancytopenia-Likely secondary to chemotherapy effect,-H&H at 6.2 and 17.9, WBC is 0.2, platelet 8- Will give 1 unit of RBC, and 1 unit platelet, recheck H&H and plateletposttransfusion, will check PT/INR-Neutropenic precautions, will transfuse as needed-Oncologist consulted will see patient tomorrow,High-grade large B-cell lymphoma-On chemo-Have consulted hematology oncologyCAD with CABG- Currently denies any chest pain, troponin I is 0.06, POC troponin is 0.09, EKGordered, continue to trend troponin, order echo-Continue statin and yuej-vubqtfjLMJF-Suqzktjx PPIDVT prophylaxis: pcdCode status: FCPast Medical History:Past Medical History:Diagnosis Date Coronary artery disease Diffuse large B cell lymphoma History of transfusion Hypercholesterolemia Hypertension Lymphoma PONV (postoperative nausea and vomiting)Past Surgical History:Past Surgical History:Procedure Laterality Date BREAST SURGERY CARDIAC SURGERY carotid endarectomy Right CORONARY ARTERY BYPASS GRAFT EYE SURGERY JOINT REPLACEMENT MASTECTOMY SKIN BIOPSY VASCULAR SURGERYMedications:(Not in a hospital admission)Allergies:PenicillinsFamily History:Family HistoryProblem Relation Age of Onset Breast cancer Sister Pancreatic cancer BrotherSocial History:Social HistoryTobacco Use Smoking status: Never Smoker Smokeless tobacco: Never UsedVaping Use Vaping Use: Never usedSubstance Use Topics Alcohol use: Not Currently Drug use: NeverReview of Systems:Review of SystemsUnable to perform ROS: Acuity of conditionPhysical Exam:Vital Signs: Temp: [99.1 F] 99.1 FHeart Rate: [106] 106Resp: [20] 20BP: (96)/(61) 96/61Physical ExamConstitu tional: General: She is in acute distress. Appearance: She is ill- appearing.HENT: Head: Normocephalic and atraumatic. Mouth/Throat: Mouth: Mucous membranes are dry.Cardiovascular: Rate and Rhythm: Normal rate and regular rhythm.Pulmonary: Effort: Respiratory distress present. Breath sounds: Normal breath sounds. No wheezing or rales.Abdominal: General: Abdomen is flat. Bowel sounds are normal. Palpations: Abdomen is soft. Tenderness: There is no abdominal tenderness.Musculoskeletal: Cervical back: Neck supple.Skin: General: Skin is dry. Coloration: Skin is pale.Neurological: General: No focal deficit present. Mental Status: She is alert. Motor: Weakness present. Comments: Unable to assess orientationLabs, Imaging and Other Diagnostics:Diagnostic tests reviewed:Signature: Jorge HopkinsRAYMONDate: July 15, 2021Time: 5:38 PMPhone number: [phone] Name Value Range Interpretation Code Description Data Che rce(s) Supporting Document(s) ID Date Data Source [id number] 07/17/2021 01:21:41 AM EST [facility] UNIT NUMBER [id number] LOOD COMPONENT TYPE LR PR1 PLATELETSUNIT DIVISION 00STATUS OF UNIT TRANSFUSEDTRANSFUSION STATUS OK TO TRANSFUSEUNIT NUMBER [id number] COMPONENT TYPE LR PR2 PLATELETSUNIT DIVISION 00STATUS OF UNIT TRANSFUSEDTRANSFUSION STATUS OK TO TRANSFUSE Name Value Range Interpretation Code Description Data Che rce(s) Supporting Document(s) TRANSFUSE PLATELETS Lab [facility] of [facility] ID Date Data Source [id number] 07/15/2021 06:48:31 PM EST [facility] Name Value Range Interpretation Code Description Data Che rce(s) Supporting Document(s) POC NOVA GLU 120 mg/dL (70-99) H [facility] PERFORMED BY [facility] CLINICAL STAFF ID Date Data Source [id number] 07/15/2021 08:54:16 PM EST [facility] Name Value Range Interpretation Code Description Data Che rce(s) Supporting Document(s) PROCALCITONIN @ 0.23 ng/mL (<0.10) H [facility] INTERPRETATION OF RESULT < 0.51 Sepsis is not likely.0.51-2.00 Sepsis is possible, but other conditions are known to elevate PCT.2.01-9.99 Sepsis is likely, unless other causes are known. > 9.99 Important systemic inflammatory response, almost exclusively due to severe bacterial sepsis or septic shock.PERFORMED AT [address] [place] [id number] ID Date Data Source [id number] 07/15/2021 08:50:16 PM EST [facility] Name Value Range Interpretation Code Description Data Che rce(s) Supporting Document(s) TROPONIN I 0.21 ng/mL (<0.05) H [facility] Less than 0.05: Myocardial injury unlike lyGreater than or equal to 0.05: Highly suggestive of myocardial injuryCorrelation with rise and/or fall ofserial troponins, clinical symptomsand ECG changes is necessary. ID Date Data Source [id number] 07/15/2021 07:30:01 PM EST [facility] Name Value Range Interpretation Code Description Data Che rce(s) Supporting Document(s) LACTIC ACID 3.7 mmol/L (0.4-2.0) H [facility] ID Date Data Source [id number] 07/15/2021 05:38:00 PM EST [facility] Name Value Range Interpretation Code Description Data Che rce(s) Supporting Document(s) SARS coronavirus 2 RNA [Presence] in Res piratory specimen by REFUGIO with probe detection NOT DETECTED NYSDOH This lab was reported by [facility]. ID Date Data Source [id number] 07/15/2021 07:05:04 PM EST [facility] Name Value Range Interpretation Code Description Data Che rce(s) Supporting Document(s) SPECIMEN DESCRIPTION Lab [facility]ia nce of [facility] INFLUENZA A (NEG) [facility] INFLUENZA B (NEG) [facility] RSV (NEG) [facility] COMMENT [facility] [place] THE [place] FDA HAS MADE THIS TEST AVAILABL EUNDER AN EMERGENCY USE AUTHORIZATION(EUA) FOR THE DETECTION AND/OR DIAGNOSISOF THE VIRUS THAT CAUSES COVID-19.PERFORMED AT [address] [place] [address] COVID19 RESULT (NDET) [facility] [place] THIS ASSAY AMPLIFIES AND DETECTSTHE TARG ET RNA USING REAL-TIME PCR.TESTING PERFORMED ON [employer] GENEXPERTNEGATIVE 2019_NCOV RT-PCR RESULTS DONOT PRECLUDE 2019_NCOV INFECTION ANDSHOULD NOT BE USED THE SOLE BASISFOR PATIENT MANAGEMENT DECISIONS. FIRST TEST [facility] [place] EMPLOYED IN HLTHCARE [facility] [place] SYMPTOMATIC [facility] [place] Y DATE OF SYMPT ONSET Lab [facility] of [place] HOSPITALIZED [facility] [place] ICU [facility] [place] CONGREGATE CARE SET Lab [facility] of [place] [facility] [place] ID Date Data Source [id number] 07/16/2021 03:16:13 PM EST [facility] [place] SPECIMEN DESCRIPTION MIDSTREAM UR INE,CLEAN CATCHCULTURE RESULTS NO GROWTHREPORT STATUS FINAL 07/16/2021 Name Value Range Interpretation Code Description Data Che rce(s) Supporting Document(s) ID Date Data Source [id number] 07/15/2021 06:06:25 PM EST [facility] [place] Name Value Range Interpretation Code Description Data Che rce(s) Supporting Document(s) COLOR [facility] [place] APPEARANCE [facility] [place] SPEC GRAV URINE 1.020 (1.003-1.030) Lab [facility] of [place] PH URINE 5.5 (5.0-7.5) [facility] [place] LEUK ESTERASE (NEG) A [facility] [place] NITRITE URINE (NEG) [facility] [place] PROTEIN URINE (NEG) A [facility] [place] GLUCOSE URINE (NEG) [facility] [place] KETONE URINE (NEG) [facility] [place] UROBILINOGEN 0.2 mg/dL (0-1.0) [facility] [place] BILIRUBIN URINE (NEG) [facility] [place] BLOOD/HGB URINE (NEG) [facility] [place] EPITHELIAL CELLS 3+ [HPF] (NEG) A [facility] [place] HYALINE CASTS 3.8 [LPF] (0-5) [facility] [place] BACTERIA (NEG) [facility] [place] URINE WBC 6.8 [HPF] (0-8) [facility] [place] URINE RBC 4.0 [HPF] (0-3) H [facility] [place] ID Date Data Source [id number] 07/15/2021 05:51:17 PM EST [facility] [place] Name Value Range Interpretation Code Description Data Che rce(s) Supporting Document(s) URN CULTURE HOLD [facility] [place] FOR ADD ON CULTURE ID Date Data Source [id number] 07/15/2021 05:26:36 PM EST [facility] NT INFORMATIONPatient MRN Name Date of Age Gend*PT [id number] Beatriz Castaneda 1945 76 years F IPPT Location Admission Date/Time Visit ID Attending [id number] 07/15/21 1419 --- Jonathan Sheets MD([id number]) EPI ID CSN Admitting Provider [id number] Jonathan Sheets MD([id number])Provider in Triage NotesED Provider in Triage NotePatient Name: Beatriz CastanedaPatient and Time of Assessment: 07/15/21, 2:17 PMChief ComplaintPatient presents with Abnormal Lab had some bld work this am - bc she was feeling weak- x about a wk-worse yesttold she needed a transfusion - is on chemo for lymphoma -Brief HPI: 76 years female, reports that she had labs done this morning-has beenhaving issues with her blood pressure dropping+weakness x 1 weekHistory of diffuse large B cell lymphoma-on intrathecal chemotherapyReports that labs showed her WBC count was low and she needed a transfusionOncologist-PanebiancoReports fever at homePhysical exam:Vitals: 07/15/21 1414BP: 96/61BP Location: Right upper armPulse: 106Resp: 20Temp: 99.1 FTempSrc: TympanicSpO2: 100%HypotensiveTachyAppears chronically illPreliminary Plan:Labs, EKG, CXRThis note was electronically signed by LUCAS Langford, 07/15/21, 2:17 PM.ED CourseCONNOR Langford- Physician AssistantHistory of Present IllnessChief ComplaintPatient presents with Abnormal Lab had some bld work this am - she was feeling weak- x about a wk-worse yesttold she needed a transfusion - is on chemo for lymphoma -76 year old female with medical history of DLBCL presents to ED for evaluationof weakness. Patient complains of weakness and nausea for 1 week and noticingconsistently low blood pressures. She had 1 episode of vomiting last night. Sheis undergoing intrathecal chemothrapy for DLBCL (Dx 02/13) with Dr. Barnes,Oncology and had lab work drawn this morning that indicated low WBC a nd HgB andlikely indication for transfusion prompting referral to ED. She reportsassociated fever 100.5F Oral at home. She is unsure of prior fevers duringchemotherapy. She denies skin changes.HistoryPast Medical History:Diagnosis Date Coronary artery disease Diffuse large B cell lymphoma History of transfusion Hypercholesterolemia Hypertension Lymphoma PONV (postoperative nausea and vomiting)Past Surgical History:Procedure Laterality Date BREAST SURGERY CARDIAC SURGERY carotid endarectomy Right CORONARY ARTERY BYPASS GRAFT EYE SURGERY JOINT REPLACEMENT MASTECTOMY SKIN BIOPSY VASCULAR SURGERYFamily HistoryProblem Relation Age of Onset Breast cancer Sister Pancreatic cancer BrotherSocial HistoryTobacco Use Smoking status: Never Smoker Smokeless tobacco: Never UsedVaping Use Vaping Use: Never usedSubstance Use Topics Alcohol use: Not Currently Drug use: NeverROSReview of SystemsConstitutional: Negative for activity change, diaphoresis and fatigue.HENT: Negative for rhinorrhea.Respiratory: Negative for chest tightness and shortness of breath.Cardiovascular: Negative for palpitations.Gastrointestinal: Positive for nausea and vomiting. Negative for abdominal pain.Genitourinary: Negative for dysuria.Musculoskeletal: Negative for joint swelling.Neurological: Positive for weakness.Physical ExamBP 96/61 (BP Location: Right upper arm) | Pulse 106 | Temp 99.1 F (Tympanic)| Resp 20 | LMP (LMP Unknown) | SpO2 100%Physical ExamVitals a nd nursing note reviewed.Constitutional: General: She is not in acute distress. Appearance: Normal appearance.HENT: Head: Normocephalic. Nose: Nose normal. Mouth/Throat: Mouth: Mucous membranes are moist.Eyes: Pupils: Pupils are equal, round, and reactive to light.Cardiovascular: Rate and Rhythm: Normal rate. Heart sounds: No murmur heard.Pulmonary: Effort: Pulmonary effort is normal. No respiratory distress. Breath sounds: Normal breath sounds. Comments: Clear to auscultation.Abdominal: General: There is no distension. Palpations: Abdomen is soft. Tenderness: There is no abdominal tenderness.Musculoskeletal: Right lower leg: No edema. Left lower leg: No edema.Neurological: General: No focal deficit present. Mental Status: She is alert.ED CourseProceduresMDMNeutropenic feverSepsisLabs are abnl significantly the white count 0.2, hg low, platelets low.1u orderedAdmitChest portableResult Date: 07/15/2021[place] [address] Patient Name: BEATRIZ MONTES DE OCA : 1945 Sex: F Ordering Provider: JANKI MAJOR AuthorizingProv: JANKI MAJOR Referring Provider: Procedure Performed: / XR CHESTPORTABLE Exam Date: 07/15/2021 14:44 Patient Class: Emergency Reason for Exam:sepsis, weakness Technique: Single AP view obtained. Comparison: Most recent03/09/2021 Findings: Previous midline sternotomy. Left chest wall pacing devicewith tip of single lead overlying the right atrial SVC junction. No acute lungdisease. No pleural effusions or pneumothorax. Cardiac and mediastinalsilhouettes within normal limits. There are diffuse degenerative changes of thespine. Chronic deformity right humeral neck compatible with old healed fracture.IMPRESSION: No acute lung disease and no significant interval changes. Reportelectronically signed by: JOURDAN STACK On 07/15/2021 4:26 PM WorkstationID: [id number] lumbar puncture w/ chemo injectionResult Date: 07/05/2021[place] [address] Patient Name: BEATRIZ MONTES DE OCA : 1945 Sex: F Ordering Provider: JACQUELINE MATHUR AuthorizingProv: JACQUELINE MATHUR Referring Provider: Procedure Performed: / IR LUMBARPUNCTURE WITH CHEMO INJECTION Exam Date: 07/05/2021 14:35 AccessionNumber: [id number] Patient Class: Outpatient Reason forExam: Diffuse large b-cell lymphoma, lymph nodes of head, face, and neckTechnique: Fluoroscopy spot image obtained Comparison: None Findings: FINDINGS:After the risks and benefits of the procedure were explained to the patient,informed consent was obtained. Risks include but are not limited to bleeding,infection, nerve injury, and spinal headache. 1% LIDOCAINE was used for localanesthesia. The patient was sterilely prepped and draped. Using fluoroscopicguidance, a 20-gauge spinal needle was advanced into the CSF space at the L5-M6dnhyj. CSF was seen exiting the needle hub. A total of 9 mL of latoya ar CSF wascollected into 4 separate vials. METHOTREXATE 12 mg was then slowly injectedintrathecally. The needle was removed and a Band-Aid was applied. This exam wasperformed by LUCAS Cisneros under the direct supervision of Dr MannComplications: None.IMPRESSION: Status post successful lumbar puncture and METHOTREXATE intrathecalinjection. Report electronically approved by: LUCAS Cisneros On 07/05/2021 2:54PM The procedure described above was performed under my supervision and I agreewith this report Report electronically signed by: GLADIS MANN On07/05/2021 3:27 PM Workstation ID: [id number] for orders placed or performed during the hospital encounter of 07/15/21Comprehensive metabolic panelResult Value Ref Range Sodium 136 136 - 145 mmol/L Potassium 3.7 3.6 - 5.2 mmol/L Chloride 105 100 - 108 mmol/L CO2 24 22 - 31 mmol/L Anion Gap 7 7 - 16 mmol/L Urea nitrogen 17 7 - 24 mg/dL Creatinine 0.52 (L) 0.60 - 1.00 mg/dL BUN/Creatinine Ratio 32.7 (H) 10.0 - 20.0 RATIO GLUC OSE 98 70 - 99 mg/dL Calcium 8.4 8.4 - 10.2 mg/dL Protein, Total 5.5 (L) 6.4 - 8.2 g/dL Albumin 2.7 (L) 3.2 - 4.5 g/dL Globulin 2.8 2.7 - 4.3 g/dL Alb/Glob ratio 1.0 RATIO Alkaline Phosphatase 46 45 - 117 U/L Bilirubin, Total 0.8 0.0 - 1.0 mg/dL AST 8 (L) 11 - 39 U/L ALT 13 12 - 78 U/L GFR MDRD Non Af Amer >60 >59 ml/min/1.73m2 GFR MDRD Af Amer >60 >59 ml/min/1.73m2 Glom Filt Rate, Est SEE NOTESCBC w/ diffResult Value Ref Range WBC 0.2 (LL) 4.10 - 11.00 10*3/uL RBC 1.81 (L) 4.00 - 5.40 10*6/uL Hemoglobin 6.2 (LL) 12.0 - 16.0 g/dL Hematocrit 17.9 (LL) 36.00 - 47.00 % MCV 98.7 (H) 80.0 - 95.0 fL MCH 34.2 (H) 27.0 - 32.0 pg MCHC 34.6 32 - 36 g/dL RDW 20.2 (H) 10.5 - 14.5 % Platelets 8 (LL) 150 - 450 10*3/uL MPV 9.6 7.1 - 10.7 fL Neutrophils % 10.0 (L) 35.0 - 75.0 % Lymphocytes Relative 70.0 (H) 16 - 52 % Eosinophils Relative 10.0 (H) 0.00 - 5.00 % Basophils Relative 10.0 (H) 0 - 4 % Neutrophils Absolute 0.0 (L) 1 - 7 10*3/uL Lymphocytes Absolute 0.1 (L) 1 - 4 10*3/uL Eosinophils Man 0.0 0 - 0 10*3/uL Basophils Absolute 0.0 0 - 0 10*3/uL Total Cells Counted 20 Anisocytosis 2+ RBC Fragments 1+LipaseResult Value Ref Range Lipase 32 (L) 65 - 230 U/L MagnesiumResult Value Ref Range Magnesium 1.7 1.7 - 2.4 mg/dLProtime-INRResult Value Ref Range Protime 10.8 9.20 - 11.90 s INR 1.02aPTTResult Value Ref Range aPTT 26.2 22.0 - 34.3 sLactic acidResult Value Ref Range Lactate 2.0 0.4 - 2.0 mmol/LTroponin IResult Value Ref Range Troponin I 0.06 (H) <0.05 ng/mLPOCT troponinResult Value Ref Range POC Troponin I 0.09 (H) 0.01 - 0.07 ng/mLTYPE AND SCREENResult Value Ref Range Specimen Expiration Date 07/18/2021 Patient ABO/Rh A POSITIVE Antibody Screen NEGATIVE Testing site PERFORMED AT [address] [place] [address] Blood bank comment SEE NOTES Unit Number [id number] Blood Component Type LEUKOPOOR RED CELLS Unit Division 00 Unit status ISS'D ANOTH PT Transfusion status OK TO TRANSFUSE Crossmatch COMPATIBLE Unit Number [id number] Blood Component Type LEUKOREDUCED PC,IRR,CMV (PT B) Unit Division 00 Unit status ALLOCATED Transfusion status OK TO TRANSFUSE Crossmatch COMPATIBLEI scribed for Dr. Mihir Barajas MD, signed by Anastasiia Blackburn CIM on07/15/2021 at 2:45 PM.Tod Wallace Name Value Range Interpretation Code Description Data Che rce(s) Supporting Document(s) ID Date Data Source [id number] 07/15/2021 04:26:03 PM [place], [place] [address]Patient Name: BEATRIZ Quinn WORKMANDOB: 1945Sex: FOrdering Provider: JANKI Harrsi Prov: JANKI Stubbs Provider: Procedure Performed: / XR CHEST PORTABLEExam Date: 07/15/2021 14:44MRN: [id number] Number: [id number] Class: EmergencyAccount #: [id number] for Exam: sepsis, weaknessTechnique: Single AP view obtained.Comparison: Most recent 03/09/2021Findings: Previous midline sternotomy. Left chest wall pacing device with tip of single lead overlying the right atrial SVC junction.No acute lung d isease. No pleural effusions or pneumothorax. Cardiac and mediastinal silhouettes within normal limits. There are diffuse degenerative changes of the spine.Chronic deformity right humeral neck compatible with old healed fracture.IMPRESSION: No acute lung disease and no significant interval changes.Report electronically signed by: JOURDAN TSACK On 07/15/2021 4:26 PMWorkstation ID: [id number] Name Value Range Interpretation Code Description Data [facility](s) Supporting Document(s) ID Date Data Source [id number] 07/18/2021 09:51:20 AM EST [facility] SPECIMEN DESCRIPTION PERIPHERALSP ECIAL REQUESTS NONEGRAM STAIN GRAM NEGATIVE RODSALERTED CRITICAL RESULT TO JUAN RAMON AT [facility] 3 4 AT 0418 ON [id number]. [address]91 CULTURE RESULTS ENTEROBACTER CLOACAE COMPLEX ENTEROBACTER SPP BY MOLECULAR METHOD.MOLECULAR TESTING IS BEING PERFORMED WITH POSSIBLE PRELIMINARYIDENTIFICATION TO FOLLOWALL MOLECULAR TEST RESULTS WILL BE CONFIRMED USING CONVENTIONALLABORATORY METHODS.THIS MOLECULAR TEST SCREENS FOR THE FOLLOWING GRAM NEGATIVE BACTERIA:ACINETOBACTER SPP, CITROBACTER SPP, ENTEROBACTER SPP, PROTEUS SPP,ESCHERICHIA COLI, KLEBSIELLA PNEUMONIAE, KLEBSIELLA OXYTOCA,PSEUDOMONAS AERUGINOSA. THIS MOLECULAR TEST SCREENS FOR THE FOLLOWINGRESISTANCE GENES: EXTENDED SPECTRUM BETA LACTAMASE (ESBL) ANDCARBAPENEMASE (CRE). REPORT STATUS FINAL 07/18/2021ORGANISM ENTEROBACTER CLOACAE COMPLEXMETHOD MICAMIKACIN <=2 SUSCEPTIBLEAMOXICILLIN/CLAVULANIC AC >=32/16 RESISTANTCEFAZOLIN >=64 RESISTANTCEFEPIME <=1 SUSCEPTIBLECEFOXITIN >=64 RESISTANTCEFTAZIDIME <=1 SUSCEPTIBLECEFTRIAXONE <=1 SUSCEPTIBLE THIS ORGANISM POSSESSES AN INDUCIBLE BETA-LACTAMASE. MULTIDRUG RESISTANCE MAY OCCUR DURING PROLONGED THERAPY WITH A 3RD GENERATION CEPHALOSPORIN OR AZTREONAM. CIPROFLOXACIN <=0.25 SUSCEPTIBLEGENTAMICIN <=1 SUSCEPTIBLELEVOFLOXACIN 0.5 SUSCEPTIBLEMEROPENEM <=0.25 SUSCEPTIBLEPIPERACILLIN/TAZOBACTAM <=4 SUSCEPTIBLETETRACYCLINE 4 SUSCEPTIBLE ISOLATES SUSCEPTIBLE TO TETRACYCLINE ARE ALSO SUSCEPTIBLE TO DOXYCYCLINE AND MINOCYCLINE.TOBRAMYCIN <=1 SUSCEPTIBLETRIMETH/SULFA >=16/304 RESISTANTERTAPENEM <=0.5 SUSCEPTIBLE Name Value Range Interpretation Code Description Data [facility](s) Supporting Document(s) ID Date Data Source [id number] 07/15/2021 02:47:33 PM EST Lab [facility] Name Value Range Interpretation Code Description Data [facility](s) Supporting Document(s) POC CTNI 0.09 ng/mL (0.01-0.07) H Lab [place] Less than 0.08: Myocardial injury unlike lyGreater than or equal to 0.08: Highlysuggestive of myocardial injuryCorrelation with rise and/or fall ofserial troponins, clinical symptoms,and ECG changes is necessary.PERFORMED BY [facility] CLINICAL STAFF ID Date Data Source [id number] 07/18/2021 09:50:25 AM EST Lab [facility] y[facility] HIGH SPECIMEN DESCRIPTION PERIPHERALSP ECIAL REQUESTS NONEGRAM STAIN GRAM NEGATIVE RODSALERTED CRITICAL RESULT TO JUAN RAMON AT [facility] 3 4 AT 0418 ON [id number]. [id number] CULTURE RESULTS ENTEROBACTER CLOACAE COMPLEXREPORT STATUS FINAL 07/18/2021ORGANISM ENTEROBACTER CLOACAE COMPLEXMETHOD MICAMIKACIN <=2 SUSCEPTIBLEAMOXICILLIN/CLAVULANIC AC >=32/16 RESISTANTCEFAZOLIN >=64 RESISTANTCEFEPIME <=1 SUSCEPTIBLECEFOXITIN >=64 RESISTANTCEFTAZIDIME <=1 SUSCEPTIBLECEFTRIAXONE <=1 SUSCEPTIBLE THIS ORGANISM POSSESSES AN INDUCIBLE BET A-LACTAMASE. MULTIDRUG RESISTANCE MAY OCCUR DURING PROLONGED THERAPY WITH A 3RD GENERATION CEPHALOSPORIN OR AZTREONAM. CIPROFLOXACIN <=0.25 SUSCEPTIBLEGENTAMICIN <=1 SUSCEPTIBLELEVOFLOXACIN 0.5 SUSCEPTIBLEMEROPENEM <=0.25 SUSCEPTIBLEPIPERACILLIN/TAZOBACTAM <=4 SUSCEPTIBLETETRACYCLINE 4 SUSCEPTIBLE ISOLATES SUSCEPTIBLE TO TETRACYCLINE ARE ALSO SUSCEPTIBLE TO DOXYCYCLINE AND MINOCYCLINE.TOBRAMYCIN <=1 SUSCEPTIBLETRIMETH/SULFA >=16/304 RESISTANTERTAPENEM <=0.5 SUSCEPTIBLE Name Value Range Interpretation Code Description Data Che rce(s) Supporting Document(s) ID Date Data Source [id number] 07/17/2021 09:22:53 AM EST Lab [facility] Name Value Range Interpretation Code Description Data Che rce(s) Supporting Document(s) WBC 0.2 10*3/uL (4.1-11.0) L Lab [place] ALERTED CRITICAL RESULT [place] (2072) [place] [address] ON 07.15.21 AT 16:45 [place] [id number] RBC 1.81 10*6/uL (4.00-5.40) L Lab [facility] y[facility]f HIGH HGB 6.2 g/dL (12.0-16.0) L [facility] [place] [facility] [place] ALERTED CRITICAL RESULT [place] (2072) [place] [address] ON 07.15.21 AT 16:[place] [address] HCT 17.9 % (36.0-47.0) L Lab [place] of [place] ALERTED CRITICAL RESULT [place] (2072) [place] [address] ON 07.15.21 AT 16:45 [place] [address] MCV 98.7 fL (80.0-95.0) H [facility] [place] [facility] [place] MCH 34.2 pg (27.0-32.0) H [facility] [place] [place] MCHC 34.6 g/dL (32.0-36.0) [facility] [place] RDW 20.2 % (10.5-14.5) H [facility] [place] PLT 8 10*3/uL (150-450) L [facility] [place] [place] ALERT[place]ICAL [place] (2072) [place] [address] ON 07.15.21 AT 16:45 [place] [address] MPV 9.6 fL (7.1-10.7) [facility] [place] [place] NEUT % 10.0 % (35.0-75.0) L [facility] [place] [place] LYMPH % 70.0 % (16.0-52.0) H [facility] [place] [facility] [place] EOS % 10.0 % (0.0-5.0) H [facility] [place] [facility] [place] BASO % 10.0 % (0.0-4.0) H [facility] [place] [facility] [place] NEUT # 0.0 10*3/uL (1.8-7.7) L [facility] [place] [place] LYMPH # 0.1 10*3/uL (1.2-4.8) L [facility] [place] [facility] [place] Eosinophils [#/volume] in Blood by Automated count 0.0 10*3/uL (0.0-0 .5) [facility] [place] [facility] [place] BASO # 0.0 10*3/uL (0.0-0.2) [facility] [place] [facility] [place] TOTAL CELLS COUNTED 20 Lab [facility] [place] ANISO 2+ [facility] [place] [facility] [place] RBC FRAGMENTS 1+ [facility] [place] PATHOLOGIST COMM [facility] [place] MD DARA 07/17/21.PERFORMED AT [facility] [address] ID Date Data Source [id number] 07/17/2021 01:21:41 AM EST [facility] [place] SPEC EXP DATE 07/18/2021ATI ENT ABO/Rh A POSITIVEANTIBODY SCREEN NEGATIVETESTING SITE PERFORMED AT [address] [place] [address] [id number] BANK COMMENT BLOOD TYPE CONFIRMED.UNIT NUMBER [id number] COMPONENT TYPE LEUKOPOOR RED CELLSUNIT DIVISION 00STATUS OF UNIT ISS'D ANOTH PTTRANSFUSION STATUS OK TO TRANSFUSECROSSMATCH RESULT COMPATIBLEUNIT NUMBER [id number] COMPONENT TYPE LEUKOREDUCED PC,IRR,CMV (PT B)UNIT DIVISION 00STATUS OF UNIT TRANSFUSEDTRANSFUSION STATUS OK TO TRANSFUSECROSSMATCH RESULT COMPATIBLEUNIT NUMBER [id number] COMPONENT TYPE LEUKOREDUCED PC, IRR, CMV NEGUNIT DIVISION 00STATUS OF UNIT TRANSFUSEDTRANSFUSION STATUS OK TO TRANSFUSECROSSMATCH RESULT COMPATIBLEUNIT NUMBER [id number] COMPONENT TYPE LEUKOREDUCED PC,IRR,CMV (PT A)UNIT DIVISION 00STATUS OF UNIT TRANSFUSEDTRANSFUSION STATUS OK TO TRANSFUSECROSSMATCH RESULT COMPATIBLE Name Value Range Interpretation Code Description Data Che rce(s) Supporting Document(s) TYPE AND SCREEN Lab [facility] [place] ANTIBODY SCREEN NEGATIVE ID Date Data Source [id number] 07/15/2021 04:59:06 PM EST [facility] [place] Name Value Range Interpretation Code Description Data Che rce(s) Supporting Document(s) TROPONIN I 0.06 ng/mL (<0.05) H [facility] [place] [facility] [place] Less than 0.05: Myocardial injury unlike lyGreater than or equal to 0.05: Highly suggestive of myocardial injuryCorrelation with rise and/or fall ofserial troponins, clinical symptomsand ECG changes is necessary. ID Date Data Source [id number] 07/15/2021 04:11:58 PM EST [facility] [place] Name Value Range Interpretation Code Description Data Che rce(s) Supporting Document(s) SODIUM 136 mmol/L (136-145) [facility] [place] POTASSIUM 3.7 mmol/L (3.6-5.2) [facility] [place] CHLORIDE 105 mmol/L (100-108) [facility] [place] CO2 24 mmol/L (22-31) [facility] [place] ANION GAP 7 mmol/L (7-16) [facility] [place] UREA NITROGEN 17 mg/dL (7-24) [facility] [place] CREATININE 0.52 mg/dL (0.60-1.00) L [facility] [place] [place] BUN/CREAT RATIO 32.7 RATIO (10.0-20.0) H [facility] [place] GLUCOSE 98 mg/dL (70-99) [facility] [place] CALCIUM 8.4 mg/dL (8.4-10.2) [facility] [place] TOTAL PROTEIN 5.5 g/dL (6.4-8.2) L [facility] [place] ALBUMIN 2.7 g/dL (3.2-4.5) L [facility] [place] GLOBULIN 2.8 g/dL (2.7-4.3) [facility] [place] ALB/GLOB RATIO 1.0 RATIO [facility] [place] ALKALINE PHOSPHATASE 46 U/L (45-117) [facility] [place] BILIRUBIN,TOTAL 0.8 mg/dL (0.0-1.0) Lab [place] [facility] [place] PLEASE NOTE:Total bilirubin results may be falselyelevated in patients taking Eltrombopag. AST (SGOT) 8 U/L (11-39) L [facility] [place] [place] ALT (SGPT) 13 U/L (12-78) [facility] [place] GFR >60 ml/min/1.73m2 (>59) [facility] [place] GFR ( AMER) >60 ml/min/1.73m2 (>59) [facility] [place] [place] GFR INTERPRETATION [facility] [place] --NORMAL KIDNEY FUNCTION OR MILD DISEASE - GFR >OR= 60CHRONIC KIDNEY DISEASE - GFR 15 - 59RENAL FAILURE - GFR <15 Est. GFR calculation based on the MDRDstudy equation, which assumes a steadystate for creatinine. Est. GFR should notbe used for medication dosing. ID Date Data Source [id number] 07/15/2021 04:09:48 PM EST Lab [facility] [place] Name Value Range Interpretation Code Description Data Che rce(s) Supporting Document(s) PT 10.8 s (9.2-11.9) [facility] [place] [place] INR 1.02 [facility] [place] SUGGESTED THERAPEUTIC RANGES USING INR F ORSTABILIZED ANTICOAGULATED PATIENTS:STANDARD DOSE THERAPY INR 2.0-3.0 DVT, PE, PREVENT DVT OR EMBOLISMHIGH DOSE THERAPY INR 2.5-3.5 PREVENT EMBOLISM FROM MECHANICAL HEART VALVE ID Date Data Source [id number] 07/15/2021 04:09:48 PM EST [facility] [place] [place] Name Value Range Interpretation Code Description Data Che rce(s) Supporting Document(s) APTT 26.2 s (22.0-34.3) Lab [place] [place] ID Date Data Source [id number] 07/15/2021 04:09:18 PM EST Lab [facility] [place] Name Value Range Interpretation Code Description Data Che rce(s) Supporting Document(s) LIPASE 32 U/L (65-230) L Lab [facility] [place] ID Date Data Source [id number] 07/15/2021 04:09:18 PM EST Lab [facility] [place] Name Value Range Interpretation Code Description Data Che rce(s) Supporting Document(s) MAGNESIUM 1.7 mg/dL (1.7-2.4) Lab [facility] [place] ID Date Data Source [id number] 07/15/2021 03:15:15 PM EST Lab [facility] [place] Name Value Range Interpretation Code Description Data Che rce(s) Supporting Document(s) LACTIC ACID 2.0 mmol/L (0.4-2.0) Lab [facility] Jules HOPSON ID Date Data Source [id number] 07/15/2021 01:55:00 PM EST [facility] Name Value Range Interpretation Code Description Data Che rce(s) Supporting Document(s) CBC W/AUTOMATED DIFF [facility] COMPLETE BLOOD COUNT Leukocytes [#/volume] in Blood by Automated count 0.2 10^3/uL 4.2 - 1 [facility] Erythrocytes [#/volume] in Blood by Automated count 2.06 10^6/uL 4. 20 - 5.40 L [facility] Hemoglobin [Mass/volume] in Blood 6.9 g/dL 12.0 - 16.0 [facility] Hematocrit [Volume Fraction] of Blood by Automated count 20.4 % 37.0 - 47.0 [facility] 07.15.21 1035 Erythrocyte mean corpuscular volume [Entitic volume] by Auto mated count 99.0 fL 81.0 - 101 [facility] Erythrocyte mean corpuscular hemoglobin [Entitic mass] by Automated count 33.5 pg 27.0 - 34.0 [facility] Erythrocyte mean corpuscular hemoglobin concentration [Mass/volume] by Automated count 33.8 g/dL 31.0 - 36.0 [facility] Erythrocyte distribution width [Ratio] by Automated count 17.2 % 11.5 - 14.5 H [facility] Platelets [#/volume] in Blood by Automated count 1 10^3/uL 150 - 450 [facility] 10[facility] Neutrophils/100 leukocytes in Blood by Automated count 6.6 % 37. 0 - 80.0 L [facility] Lymphocytes/100 leukocytes in Blood by Manual count 53.3 % 25.0 - 40.0 H [facility] Monocytes/100 leukocytes in Blood by Automated count 6.7 % 3.0 - 8.0 [facility] Eosinophils/100 leukocytes in Blood by Automated count 26.7 % 0.0 - 7.0 H [facility] Basophils/100 leukocytes in Blood by Automated count 6.7 % 0.0 - 2.5 H [facility] %IG 0.0 % 0.0 - 0.0 [facility] %NRBC 0.0 % 0.0 - 0.0 [facility] al Neutrophils [#/volume] in Blood by Automated count 0.01 10^3/uL 2.00 - 6.90 L [facility] Lymphocytes [#/volume] in Blood by Automated count 0.08 10^3/uL 0.60 - 3.40 L [facility] Monocytes [#/volume] in Blood by Automated count 0.01 10^3/uL 0.00 - 0.90 [facility] Eosinophils [#/volume] in Blood by Automated count 0.04 10^3/uL 0.00 - 0.70 [facility] Basophils [#/volume] in Blood by Automated count 0.01 10^3/uL 0.00 - 0.20 [facility] #IG 0.00 10^3/uL 0.00 - 0.10 [facility] #NRBC 0.00 10^3/uL 0.00 - 0.00 [facility] MANUAL DIFF SEE BELOW [facility] ital Segmented neutrophils/100 leukocytes in Blood by Manual count 16 % 37 - 80 L [facility] %LYMPH 56 % 25 - 40 H [facility] %MONO 4 % 3 - 8 [facility] %EOS 24 % 0 - 7 H [facility] RBC MORPH [facility] BELOW [facility] An[facility]ocytosis [Presence] in Blood by Light microscopy 1+ MARY ELLEN L: NONE SEEN A [facility] HYPO 2+ NORMAL: NONE SEEN A [facility] { SICKLE CELL (NORMAL: NONE SEEN ) Platelet adequacy [Presence] in Blood by Light microscopy DE CREASED NORMAL: NORMAL A [facility] COMMENT: _25_CELL_DIFF_PERFORMED._PL ATELETS_MARKEDLY_DECREASED 07/15/21.1355.TAD. . . ___ ID Date Data Source [id number] 07/15/2021 10:19:00 AM EST [facility] Name Value Range Interpretation Code Description Data Che rce(s) Supporting Document(s) COMPREHENSIVE METABOLIC PANEL [facility] COMPREHENSIVE METABOLIC PANEL Sodium [Moles/volume] in Serum or Plasma 134 mEq/L 134 - 153 [facility] Potassium [Moles/volume] in Serum or Plasma 3.9 mEq/L 3.6 - 5.0 [facility] Chloride [Moles/volume] in Serum or Plasma 101 mEq/L 98 - 107 [facility] Carbon dioxide, total [Moles/volume] in Serum or Plasma 24 MEQ/L 22 - 30 [facility] Glucose [Mass/volume] in Serum or Plasma 123 MG/DL 70 - 99 H [facility] BUN 15 MG/DL 7 - 21 [facility] al Creatinine [Mass/volume] in Serum or Plasma 0.5 MG/DL 0.7 - 1.5 L [facility] BUN/CREAT 30 8 - 27 H [facility] Protein [Mass/volume] in Serum or Plasma 4.9 G/DL 6.3 - 8.2 L [facility] Albumin [Mass/volume] in Serum or Plasma 3.6 G/DL 3.9 - 5.0 L [facility] Globulin [Mass/volume] in Serum by calculation 1.3 GM/DL 2.4 - 3.2 L [facility] A/G RATIO 2.8 0.8 - 2.0 H [facility] Calcium [Mass/volume] in Serum or Plasma 9.0 MG/DL 8.4 - 10.2 [facility] Bilirubin.total [Mass/volume] in Serum or Plasma 0.9 MG/DL 0.2 - 1.3 [facility] Alkaline phosphatase [Enzymatic activity/volume] in Serum or Plasma 47 U/L 38 - 126 [facility] Aspartate aminotransferase [Enzymatic activity/volume] in Serum or Plasma 10 U/L 5 - 40 [facility] Alanine aminotransferase [Enzymatic activity/volume] in Seru m or Plasma 7 U/L 7 - 56 [facility] Anion gap 3 in Serum or Plasma 9.0 mmol/L 8.0 - 16.0 [facility] 76 [facility] GFR >60 mL/min [facility] ital AFR AMER GFR >60 [facility] Male GFR In terprentation 20-49 yrs >60 mL/min Normal 50-59 yrs >56 mL/min Normal 60-69 yrs >49 mL/min Normal 70-79yrs >42 mL/min Normal 80 and above >35 mL/min Normal Female GFR Interpretation 20-39 yrs >60 mL/min Normal 40-49 yrs >58 mL/min Normal 50-59 yrs >51 mL/min Normal 60-69 yrs >45 mL/min Normal 70-79 yrs >39 mL/min Normal 80 and above >32 mL/min Normal ID Date Data Source [id number] 07/13/2021 09:40:00 AM EST [facility] Name Value Range Interpretation Code Description Data Che rce(s) Supporting Document(s) SARS coronavirus 2 RNA [Presence] in Res piratory specimen by REFUGIO with probe detection NOT DETECTED [facility] This lab was reported by Lab [facility]. ID Date Data Source [id number] 07/14/2021 03:50:09 PM EST Lab [facility] Name Value Range Interpretation Code Description Data Che rce(s) Supporting Document(s) SPECIMEN DESCRIPTION Lab [facility] of [place] COVID 19 RESULT (NDET) Lab [facility] o f [facility] NEGATIVE COVID-19 RESULTS DONOT PRECLUDE COVID-2019 INFECTION ANDSHOULD NOT BE USED THE SOLE BASISFOR PATIENT MANAGEMENT DECISIONS. COMMENT [facility] THE [place] FDA HAS MADE THIS TEST AVAILABL EUNDER AN EMERGENCY USE AUTHORIZATION(EUA) FOR THE DETECTION AND/OR DIAGNOSISOF THE VIRUS THAT CAUSES COVID-19.THIS ASSAY AMPLIFIES AND DETECTS TARGETDNA USING MOBILE MANAGER- MEDIATEDAMPLIFICATIONTESTING PERFORMED ON [place] [place] FIRST TEST Lab [facility] [place] SYMPTOMATIC [facility] [place] DATE OF SYMPT ONSET [facility] HOSPITALIZED [facility] of [facility] ICU Lab [facility] of [facility] CONGREGATE CARE SET [facility] [place] Lab [facility] of [facility] ID Date Data Source [id number] 07/06/2021 09:30:51 AM EST [facility] NT INFORMATIONPatient MRN Name Date of Age Gend*PT [id number] Beatriz Castaneda 1945 76 years F HOPPT Location Admission Date/Time Visit ID Attending ProviderCV-03 07/05/21 1106 --- --- EPI ID CSN Admitting Provider [id number] Gladis Mann MD([id number]) Attestation signed by Gladis Mann MD at 07/06/2021 9:30 AMAbove performed under my supervision, I agree with above report.JOSÉ Austinepartment of Interventional Radiology ---------Brief Operative/Invasive Procedure Viviana Kai WorkmanDATE OF : 1945MRN # [id number] DATE: 07/05/2021ROVIDER:LUCAS Chaudhary 07/05/2021 2:46 PMASSISTANCE(S): NonePROCEDURE:Lumbar Puncture with Methotrexate injectionPRE-PROCEDURE DIAGNOSIS:Diffuse large b-cell lymphomaPOST PROCEDURE DIAGNOSIS:Diffuse large b-cell lymphomaANESTHESIA TYPE:local. 1% lidocaine (8cc)DRAINS:noneSPECIMENS:A total of 9 mL of clear CSF was collected into 4 separate vialsESTIMATED BLOOD LOSS: MinimalGRAFTS OR IMPLANTS:noneFINDINGS: Consistent with operative diagnosisCOMPLICATIONS: noneSee dictated ANTONIA Avinaepartment of Interventional Radiology Name Value Range Interpretation Code Description Data Che rce(s) Supporting Document(s) ID Date Data Source [id number] 07/06/2021 09:29:53 AM EST [facility] NT INFORMATIONPatient MRN Name Date of Age Gend*PT [id number] Beatriz Castaneda 1945 76 years F HOPPT Location Admission Date/Time Visit ID Attending ProviderCV-07/05/21 1106 --- --- EPI ID CSN Admitting Provider [id number] Gladis Mann MD([id number]) Attestation signed by Gladis Mann MD at 07/06/2021 9:29 AMAbove performed under my supervision, I agree with above report.Gladis Mann [facility] ---------Medical ImagingOutpatient History & Physical RecordCarol A WorkmanMRN: [id number] Physician: Dr. MathurDiagnosis: Diffuse large B-cell lymphomaTreatment/Procedure: Lumbar puncture with chemo injectionDate of Procedure: 07/05/2021 2:06 PMHistory:This is a 76 year old female who has a history of diffuse large B-celllymphoma, lymph nodes of head, face, and neck. She is here today to have LP withchemo injection.Questions and concerns answered.Review of Systems:Respiratory: Negative.Cardiovascular: Negati ve.Neurological: Negative.General: Denies any headache, fatigue, fever or pain.Past Medical History:Past Medical History:Diagnosis Date Coronary artery disease Diffuse large B cell lymphoma History of transfusion Hypercholesterolemia Hypertension Lymphoma PONV (postoperative nausea and vomiting)Past Surgical History:Past Surgical History:Procedure Laterality Date BREAST SURGERY CARDIAC SURGERY carotid endarectomy Right CORONARY ARTERY BYPASS GRAFT EYE SURGERY JOINT REPLACEMENT MASTECTOMY SKIN BIOPSY VASCULAR SURGERYMedications:Medications Prior to AdmissionMedication Sig Dispense Refill Last Dose acetaminophen (TYLENOL) 325 MG tablet Take 2 tablets (650 mg total) by mouthevery 4 (four) hours as needed (mild pain) 30 tablet 0 Past Week at Unknown time acyclovir (ZOVIRAX) 200 MG capsule Take 400 mg by mouth 2 (two) times a day07/05/2021 at Unknown time famotidine (PEPCID) 20 MG tablet Take 20 mg by mouth nightly 07/04/2021 atUnknown time fenofibrate (LOFIBRA) 160 MG tablet Take 160 mg by mouth daily 07/05/2021 atUnknown time HYDROmorphone (DILAUDID) 2 MG tablet Take 1 tablet (2 mg total) by mouth every4 (four) hours as needed (moderate to severe pain) Max Daily Amount: 12 mg 60tablet 0 Past Month at Unknown time lidocaine Viscous HCl (XYLOCAINE) 2 % solution Take 5 mL by mouth as neededfor pain Past Week at Unknown time metoprolol tartrate (LOPRESSOR) 25 MG tablet Take 12.5 mg by mouth 2 (two)times a day 07/05/2021 at Unknown time omeprazole (PriLOSEC) 20 MG capsule Take 20 mg by mouth daily 07/05/2021 atUnknown time ondansetron (ZOFRAN-ODT) 4 MG disintegrating tablet Take 4 mg by mouth every 6(six) hours as needed for nausea Past Week at Unknown time pregabalin (LYRICA) 75 MG capsule Take 1 capsule (75 mg total) by mouth 2(two) times a day Max Daily Amount: 150 mg 60 capsule 11 07/05/2021 at Un knowntime senna-docusate (PERICOLACE) 8.6-50 MG Take 2 tablets by mouth nightly (Patienttaking differently: Take 1 tablet by mouth 2 (two) times a day as needed ) 60tablet 1 Past Week at Unknown time simvastatin (ZOCOR) 20 MG tablet Take 20 mg by mouth nightly 07/04/2021 atUnknown time sulfamethoxazole-trimethoprim (BACTRIM DS,SEPTRA DS) 800-160 MG per tabletTake 1 tablet by mouth 2 (two) times a day One tablet BID M-W-F 07/05/2021 atUnknown time vitamin D, Ergocalciferol, 1.25 MG (79829 UT) CAPS Take 1 capsule by mouthevery 30 (thirty) days I capsule 1st of the month PM Past Month at Unknowntime prochlorperazine (COMPAZINE) 10 MG tablet Take 1 tablet (10 mg total) by mouthevery 6 (six) hours as needed 30 tablet 1 More than a month at Unknown time [DISCONTINUED] allopurinol (ZYLOPRIM) 300 MG tablet Take 1 tablet (300 mgtotal) by mouth daily 30 tablet 1 [DISCONTINUED] aspirin EC 81 MG EC tablet Take 81 mg by mouth dailyAllergies:PenicillinsSocial History:Social HistoryTobacco Use Smoking status: Never Smoker Smokeless tobacco: Never UsedVaping Use Vaping Use: Never usedSubstance Use Topics Alcohol use: Not Currently Drug use: NeverPhysical Exam:Temp: [97.6 F] 97.6 FHeart Rate: [64] 64Resp: [16] 16BP: (150)/(72) 150/72General Appearance: Comfortable and in no acute distress.Lungs: Normal respiratory rate. Breath sounds clear to auscultation.Heart: S1 normal and S2 normal.Neurological: Patient is alert and oriented to person, place and time.Skin: Warm, dry and pale.Abdomen: Abdomen is soft.Diagnostic ReviewLab ResultsComponent Value Date WBC 2.9 (L) 04/01/2021 HGB 8.5 (L) 04/01/2021 HCT 24.0 (L) 04/01/2021 MCV 97.4 (H) 04/01/2021 PLT 405 04/01/2021ab ResultsComponent Value Date INR 1.1 07/05/2021 INR 0.97 03/30/2021 INR 1.00 02/24/2021 PROTIME 10.2 03/30/2021 PROTIME 10.5 02/24/2021ignature: Jose Peters, RAYMONDate: July 05, 2021Time: 2:03 PM Name Value Range Interpretation Code Description Data Che rce(s) Supporting Document(s) ID Date Data Source [id number] 07/05/2021 03:27:31 PM EST [address] [id number] Name: BEATRIZ LORDMANDOB: 1945Sex: FOrdering Provider: JACQUELINE SOLOMONZOAuthorizing Prov: JACQUELINE SOLOMONZOReferring Provider: Procedure Performed: / IR LUMBAR PUNCTURE WITH CHEMO INJECTIONExam Date: 07/05/2021 14:35MRN: [id number] Number: [id number] Class: OutpatientAccount #: [id number] for Exam: Diffuse large b-cell lymphoma, lymph nodes of head, face, and neckTechnique: Fluoroscopy spot image obtainedComparison: NoneFindings: FINDINGS: After the risks and benefits of the procedure were explained to the patient, informed consent was obtained. Risks include but are not limited to bleeding, infection, nerve injury, and spinal headache. 1% LIDOCAINE was used for local anesthesia. The patient was sterilely prepped and draped. Using fluoroscopic guidance, a 20-gauge spinal needle was advanced into the CSF space at the L5-S1 level. CSF was seen exiting the needle hub. A total of 9 mL of clear CSF was collected into 4 separate vials. METHOTREXATE 12 mg was then slowly injected intrathecally. The needle was removed and a Band-Aid was applied.This exam was performed by LUCAS Cisneros under the direct supervision of Dr MannComplications: None.IMPRESSION: Status post successful lumbar puncture and METHOTREXATE intrathecal injection.Report electronically approved by: LUCAS Cisneros On 07/05/2021 2:54 PMThe procedure described above was performed under my supervision and I agree with this reportReport electronically signed by: GLADIS MANN On 07/05/2021 3:27 PMWorkstation ID: [id number] Name Value Range Interpretation Code Description Data Che rce(s) Supporting Document(s) ID Date Data Source [id number] 07/07/2021 07:49:26 AM EST [facility] [place] Name Value Range Interpretation Code Description Data Che rce(s) Supporting Document(s) SOURCE (RESOE) [facility] [place] CSF RESULT [facility] [place] PERFORMING LAB [facility] [place] [address] [place] [address] ID Date Data Source [id number] 07/05/2021 12:31:20 PM EST [facility] [place] Name Value Range Interpretation Code Description Data Che rce(s) Supporting Document(s) POC PTINR 1.1 [facility] [place] SUGGESTED THERAPEUTIC RANGES USING INR F ORSTABILIZED ANTICOAGULATED PATIENTS:STANDARD DOSE THERAPY INR 2.0-3.0 DVT, PE, PREVENT DVT OR EMBOLISMHIGH DOSE THERAPY INR 2.5-3.5 PREVENT EMBOLISM FROM MECHANICAL HEART VALVEPERFORMED BY [facility] ID Date Data Source [id number] 07/10/2021 05:03:15 PM EST [facility] LABORATORY [address] [address]# MISCELLANEOUS CYTOLOGY REPORTAccession Number: [id number] of Specimen(s): A: Cerebrospinal Fluid Tube #1Clinical Diagnosis and History: History of B-cell LymphomaGross DescriptionCerebrospinal Fluid Tube #1: 1 cc clear colorless fluid with 2 slides. Final DiagnosisSpecimen AdequacySatisfactoryFinal DiagnosisNEGATIVE FOR MALIGNANCY Rare monocytes, lymphocytes, and erythrocytes. Processed and screened at [facility],Cytology, [address] [place] [address], [facility].As applicable, positive and negative controls for all immunohistochemicaland/or special stains were reviewed and considered appropriate. Reported: 07/10/2021Electronically Signed Out By Alpesh Curry MD[facility] PatholoCytotechnologist: Keisha HUFFMAN(ASCP)[facility]jjfICD code: C83.00CPT code: A: [id number] Name Value Range Interpretation Code Description Data Che rce(s) Supporting Document(s) ID Date Data Source [id number] 06/30/2021 09:05:00 AM EDT [facility] Name Value Range Interpretation Code Description Data Che rce(s) Supporting Document(s) SARS coronavirus 2 RNA [Presence] in Res piratory specimen by REFUGIO with probe detection NOT DETECTED [facility] was reported by [facility]. ID Date Data Source [id number] 07/01/2021 07:28:21 AM EDT [facility] Name Value Range Interpretation Code Description Data Che rce(s) Supporting Document(s) SPECIMEN DESCRIPTION [facility] COVID 19 RESULT (NDET) [facility] NEGATIVE COVID-19 RESULTS DONOT PRECLUDE COVID-2019 INFECTION ANDSHOULD NOT BE USED THE SOLE BASISFOR PATIENT MANAGEMENT DECISIONS. COMMENT [facility] [place] THE U.[place]. FDA HAS MADE THIS TEST AVAILBOWEN LOBATOER AN EMERGENCY USE AUTHORIZATION(EUA) FOR THE DETECTION AND/OR DIAGNOSISOF THE VIRUS THAT CAUSES COVID-19.THIS ASSAY AMPLIFIES AND DETECTS [employer] USING MOBILE MANAGER- MEDIATEDAMPLIFICATIONTESTING PERFORMED ON [place] [place] FIRST TEST [facility] [place] EMPL[facility]ED [facility] [place] SYMPTOMATIC [facility] [place] DATE OF SYMPT ONSET [facility]IZED [facility] [place] [facility] [place] CONGREGATE CARE SET [facility] [place] [facility] [place] ID Date Data Source [id number] 06/23/2021 08:18:00 AM EDT [facility] Name Value Range Interpretation Code Description Data Che rce(s) Supporting Document(s) CBC NO DIFF [facility] COMPLETE BLOOD COUNT Leukocytes [#/volume] in Blood by Automated count 5.9 10^3/uL 4.2 - 1 1.0 [facility] Erythrocytes [#/volume] in Blood by Automated count 3.16 10^6/uL 4. 20 - 5.40 L [facility] Hemoglobin [Mass/volume] in Blood 10.0 g/dL 12.0 - 16.0 L [facility] Hematocrit [Volume Fraction] of Blood by Automated count 30.6 % 3 7.0 - 47.0 L [facility] Erythrocyte mean corpuscular volume [Entitic volume] by Auto mated count 96.8 fL 81.0 - 101 [facility] Erythrocyte mean corpuscular hemoglobin [Entitic mass] by Automated count 31.6 pg 27.0 - 34.0 [facility] Erythrocyte mean corpuscular hemoglobin concentration [Mass/volume] by Automated count 32.7 g/dL 31.0 - 36.0 [facility] Erythrocyte distribution width [Ratio] by Automated count 18.4 % 11.5 - 14.5 H [facility] Platelets [#/volume] in Blood by Automated count 50 10^3/uL 150 - 450 L [facility] Platelet mean volume [Entitic volume] in Blood by Automated count 11.5 fL 7.4 - 10.4 H [facility] ID Date Data Source [id number] 06/21/2021 04:40:14 PM EDT [facility] [place] Name Value Range Interpretation Code Description Data Che rce(s) Supporting Document(s) WBC 8.1 10*3/uL (4.1-11.0) [facility] [place] RBC 2.88 10*6/uL (4.00-5.40) L [facility] HGB 9.2 g/dL (12.0-16.0) L [facility] [place] HCT 27.1 % (36.0-47.0) L [facility] [place] PATIENT TRANSFUSED MCV 94.1 fL (80.0-95.0) [facility] MCH 31.9 pg (27.0-32.0) [facility] MCHC 33.9 g/dL (32.0-36.0) [facility] RDW 19.1 % (10.5-14.5) H [facility] PLT 26 10*3/uL (150-450) L [facility] PLATELET COUNT VERIFIED BY TECH MPV 9.4 fL (7.1-10.7) [facility] ID Date Data Source [id number] 06/21/2021 05:47:54 PM EDT [facility] Name Value Range Interpretation Code Description Data Che rce(s) Supporting Document(s) HAPTOGLOBIN @ 133 mg/dL (30-200) [facility] ID Date Data Source [id number] 06/21/2021 12:04:35 PM EDT [facility] Name Value Range Interpretation Code Description Data Che rce(s) Supporting Document(s) IRON,TOTAL @ 91 ug/dL (35-150) [facility] [place] UIBC @ 125 ug/dL (130-375) L [facility] TIBC @ 216 ug/dL (250-450) L [facility] % SATURATION 42 % (12-50) [facility] [place] ID Date Data Source [id number] 06/21/2021 12:04:35 PM EDT [facility] Name Value Range Interpretation Code Description Data Che rce(s) Supporting Document(s) FOLATE @ 5.6 ng/mL (3.1-17.5) [facility] ID Date Data Source [id number] 06/21/2021 12:04:35 PM EDT [facility] Name Value Range Interpretation Code Description Data Che rce(s) Supporting Document(s) FERRITIN @ 1493 ng/mL (8-252) H [facility] ID Date Data Source [id number] 06/21/2021 12:04:35 PM EDT [facility] Name Value Range Interpretation Code Description Data Che rce(s) Supporting Document(s) VITAMIN B12 @ 1685 pg/mL (193-986) H [facility] ID Date Data Source [id number] 06/21/2021 10:11:01 AM EDT [facility] Name Value Range Interpretation Code Description Data Che rce(s) Supporting Document(s) LDH 224 U/L (84-246) [facility] ID Date Data Source [id number] 06/21/2021 07:48:16 AM EDT [facility] Name Value Range Interpretation Code Description Data Che rce(s) Supporting Document(s) WBC 7.1 10*3/uL (4.1-11.0) [facility] [place] RBC 2.13 10*6/uL (4.00-5.40) L [facility] HGB 7.0 g/dL (12.0-16.0) L [facility] [place] HCT 20.7 % (36.0-47.0) L [facility] [place] MCV 97.4 fL (80.0-95.0) H [facility] MCH 32.7 pg (27.0-32.0) H [facility] MCHC 33.6 g/dL (32.0-36.0) [facility] RDW 20.9 % (10.5-14.5) H [facility] PLT 19 10*3/uL (150-450) L [facility] PLATELET COUNT VERIFIED BY TECHRESULT(S) CALLED TO AND READ BACK ELEN ON 4NIR AT 1027 ON 06/21/21 [place] [id number] MPV 8.6 fL (7.1-10.7) [facility] ID Date Data Source [id number] 06/21/2021 07:10:11 AM EDT [facility] Name Value Range Interpretation Code Description Data Che rce(s) Supporting Document(s) PHOSPHORUS 3.2 mg/dL (2.5-4.5) [facility] ID Date Data Source [id number] 06/21/2021 07:10:11 AM EDT [facility] Name Value Range Interpretation Code Description Data Che rce(s) Supporting Document(s) MAGNESIUM 1.9 mg/dL (1.7-2.4) [facility] ID Date Data Source [id number] 06/21/2021 07:10:11 AM EDT [facility] Name Value Range Interpretation Code Description Data Che rce(s) Supporting Document(s) SODIUM 145 mmol/L (136-145) [facility] POTASSIUM 3.7 mmol/L (3.6-5.2) [facility] CHLORIDE 115 mmol/L (100-108) H [facility] CO2 24 mmol/L (22-31) [facility] ANION GAP 6 mmol/L (7-16) L [facility] UREA NITROGEN 7 mg/dL (7-24) [facility] CREATININE 0.59 mg/dL (0.60-1.00) L [facility] BUN/CREAT RATIO 11.9 RATIO (10.0-20.0) [facility] GLUCOSE 93 mg/dL (70-99) [facility] CALCIUM 8.0 mg/dL (8.4-10.2) L [facility] TOTAL PROTEIN 4.2 g/dL (6.4-8.2) L [facility] ALBUMIN 2.3 g/dL (3.2-4.5) L [facility] GLOBULIN 1.9 g/dL (2.7-4.3) L [facility] ALB/GLOB RATIO 1.2 RATIO [facility] ALKALINE PHOSPHATASE 54 U/L (45-117) [facility] BILIRUBIN,TOTAL 0.3 mg/dL (0.0-1.0) [facility] PLEASE NOTE:Total bilirubin results may be falselyelevated in patients taking Eltrombopag. AST (SGOT) <5 U/L (11-39) L [facility] ALT (SGPT) 15 U/L (12-78) [facility] GFR >60 ml/min/1.73m2 (>59) [facility] GFR ( AMER) >60 ml/min/1.73m2 (>59) [facility] GFR INTERPRETATION [facility] --NORMAL KIDNEY FUNCTION OR MILD DISEASE - GFR >OR= 60CHRONIC KIDNEY DISEASE - GFR 15 - 59RENAL FAILURE - GFR <15 Est. GFR calculation based on the MDRDstudy equation, which assumes a steadystate for creatinine. Est. GFR should notbe used for medication dosing. ID Date Data Source [id number] 06/21/2021 06:58:17 AM EDT [facility] [place] Name Value Range Interpretation Code Description Data Che rce(s) Supporting Document(s) PT 13.0 s (9.2-11.9) H [facility] [place] INR 1.25 [facility] [place] SUGGESTED THERAPEUTIC RANGES USING INR F ORSTABILIZED ANTICOAGULATED PATIENTS:STANDARD DOSE THERAPY INR 2.0-3.0 DVT, PE, PREVENT DVT OR EMBOLISMHIGH DOSE THERAPY INR 2.5-3.5 PREVENT EMBOLISM FROM MECHANICAL HEART VALVE ID Date Data Source [id number] 06/20/2021 10:35:24 PM EDT [facility] [place] Name Value Range Interpretation Code Description Data Che rce(s) Supporting Document(s) WBC 8.9 10*3/uL (4.1-11.0) [facility] [place] RBC 2.31 10*6/uL (4.00-5.40) L [facility] HGB 7.6 g/dL (12.0-16.0) L [facility] HCT 22.5 % (36.0-47.0) L [facility] [place] PATIENT TRANSFUSED MCV 97.3 fL (80.0-95.0) H [facility] [place] MCH 32.8 pg (27.0-32.0) H [facility] [place] MCHC 33.7 g/dL (32.0-36.0) [facility] [place] RDW 21.3 % (10.5-14.5) H [facility] [place] PLT 19 10*3/uL (150-450) L [facility] [place] PLATELET COUNT VERIFIED BY TECHRESULT(S) CALLED TO AND READ BACK BYJEN IN ED ON 06/20/21 AT 2233 [place] [id number] MPV 8.3 fL (7.1-10.7) [facility] ID Date Data Source [id number] 06/20/2021 04:52:00 PM EDT [facility] Name Value Range Interpretation Code Description Data Che rce(s) Supporting Document(s) SARS coronavirus 2 RNA [Presence] in Res piratory specimen by REFUGIO with probe detection NOT DETECTED [facility] This lab was reported by [facility]. ID Date Data Source [id number] 06/20/2021 09:55:18 PM EDT [facility] Name Value Range Interpretation Code Description Data Che rce(s) Supporting Document(s) SPECIMEN DESCRIPTION [facility] [place] COVID19 RESULT (NDET) [facility] THIS ASSAY AMPLIFIES AND DETECTSTHE TARG ET RNA USING REAL-TIME PCR.TESTING PERFORMED ON THE [employer] COMMENT [facility] UNDER AN EMERGENCY USE AUTHORIZATION(EUA ) FOR THE DETECTION AND/OR DIAGNOSISOF THE VIRUS THAT CAUSES COVID-19.NEGATIVE 2019_NCOV RT-PCR RESULTS DONOT PRECLUDE 2019_NCOV INFECTION ANDSHOULD NOT BE USED THE SOLE BASISFOR PATIENT MANAGEMENT DECISIONS. FIRST TEST [facility] [place] [facility] [place] SYMP[facility]OMATIC [facility] [place] DATE OF SYMPT ONSET [facility] [place] HOSPITALIZED [facility] ICU [facility] [place] CONGREGATE CARE SET [facility] [place] [facility] [place] ID Date Data Source [id number] 06/22/2021 12:23:25 AM EDT [facility] PATIENT ABO/Rh A POSITIVEANT IBODY SCREEN NEGATIVESPEC EXP DATE 06/23/2021TESTING SITE PERFORMED AT [address] [facility] [id number] BANK COMMENT BLOOD TYPE CONFIRMED.UNIT NUMBER [id number] COMPONENT TYPE LEUKOPOOR RED CELLSUNIT DIVISION 00STATUS OF UNIT TRANSFUSEDTRANSFUSION STATUS OK TO TRANSFUSECROSSMATCH RESULT COMPATIBLEUNIT NUMBER [id number] COMPONENT TYPE LEUKOPOOR RED CELLSUNIT DIVISION 00STATUS OF UNIT TRANSFUSEDTRANSFUSION STATUS OK TO TRANSFUSECROSSMATCH RESULT COMPATIBLE Name Value Range Interpretation Code Description Data Che rce(s) Supporting Document(s) ID Date Data Source [id number] 06/20/2021 04:45:28 PM EDT [facility] Name Value Range Interpretation Code Description Data Che rce(s) Supporting Document(s) URINE WBC (0-5) [facility] URINE RBC (0-2) [facility] EPITHELIAL CELLS 2+ [HPF] [facility] BACTERIA 1+ [HPF] [facility] MUCUS 1+ [HPF] [facility] AMORPHOUS 1+ [HPF] [facility] COARSE GRAN CAST [facility] ID Date Data Source [id number] 06/20/2021 04:25:58 PM EDT [facility] Name Value Range Interpretation Code Description Data Che rce(s) Supporting Document(s) COLOR [facility] PERFORMED AT [address] [facility] [address] APPEARANCE [facility] SPEC GRAV URINE 1.011 (1.003-1.030) [facility] PH URINE 7.0 (5.0-7.5) [facility] LEUK ESTERASE 1+ (NEG) A [facility] NITRITE URINE (NEG) [facility] PROTEIN URINE (NEG) [facility] GLUCOSE URINE (NEG) [facility] KETONE URINE (NEG) [facility] [place] UROBILINOGEN 0.2 mg/dL (0-1.0) [facility] [place] BILIRUBIN URINE (NEG) [facility] BLOOD/HGB URINE (NEG) [facility] ID Date Data Source [id number] 06/20/2021 04:52:25 PM EDT [facility] Name Value Range Interpretation Code Description Data Che rce(s) Supporting Document(s) WBC 10.0 10*3/uL (4.1-11.0) [facility] ADJUSTED FOR NUCLEATED RBC'SCorrected on 06/20 AT 1651: Previously reported as 10.1 RBC 1.67 10*6/uL (4.00-5.40) L [facility] HGB 5.7 g/dL (12.0-16.0) L [facility] HCT 17.1 % (36.0-47.0) L [facility] H&HRESULT(S) CALLED TO AND READ BACK BYPeg VOSS IN ED ON 06/20/21 [place]18 [place] [id number] MCV 102.7 fL (80.0-95.0) H [facility] MCH 34.1 pg (27.0-32.0) H [facility] MCHC 33.3 g/dL (32.0-36.0) [facility] RDW 20.0 % (10.5-14.5) H [facility] PLT 24 10*3/uL (150-450) L [facility] PLATELET COUNT VERIFIED BY TECH MPV 9.4 fL (7.1-10.7) [facility] NEUT % 81.0 % (35.0-75.0) H [facility] BAND % 2.0 % (0.0-11.0) [facility] LYMPH % 2.0 % (16.0-52.0) L [facility] MONO % 11.0 % (0.0-8.0) H [facility] META % 1.0 % (0.0) H [facility] MYELO % 3.0 % (0.0) H [facility] NRBC 1.0 /100 WBC (0.0) H [facility] [place] NEUT # 8.1 10*3/uL (1.8-7.7) H [facility] BAND # 0.2 10*3/uL [facility] LYMPH # 0.2 10*3/uL (1.2-4.8) L [facility] MONO # 1.1 10*3/uL (0.0-0.8) H [facility] META # 0.1 10*3/uL (0.0) H [facility] MYELO # 0.3 10*3/uL (0.0) H [facility] TOXIC 1+ [facility] ANISO 2+ [facility] POLY 1+ [facility] MACRO 1+ [facility] ID Date Data Source [id number] 06/20/2021 04:46:29 PM EDT [facility] Name Value Range Interpretation Code Description Data Che rce(s) Supporting Document(s) TOTAL PROTEIN 5.3 g/dL (6.4-8.2) L [facility] ALBUMIN 2.6 g/dL (3.2-4.5) L [facility] GLOBULIN 2.7 g/dL (2.7-4.3) [facility] ALB/GLOB RATIO 1.0 RATIO [facility] BILIRUBIN,TOTAL 0.3 mg/dL (0.0-1.0) [facility] PLEASE NOTE:Total bilirubin results may be falselyelevated in patients taking Eltrombopag. BILIRUBIN,CONJUGATED 0.1 mg/dL (0.0-0.3) [facility] BILIRUBIN,UNCONJ. 0.2 mg/dL (0.0-0.7) [facility] ALKALINE PHOSPHATASE 58 U/L (45-117) [facility] AST (SGOT) 13 U/L (11-39) [facility] ALT (SGPT) 7 U/L (12-78) L [facility] ID Date Data Source [id number] 06/20/2021 04:46:29 PM EDT [facility] Name Value Range Interpretation Code Description Data Che rce(s) Supporting Document(s) TROPONIN I 0.11 ng/mL (<0.05) H [facility] Less than 0.05: Myocardial injury unlike lyGreater than or equal to 0.05: Highly suggestive of myocardial injuryCorrelation with rise and/or fall ofserial troponins, clinical symptomsand ECG changes is necessary. ID Date Data Source [id number] 06/20/2021 04:46:29 PM EDT [facility] [place] Name Value Range Interpretation Code Description Data Che rce(s) Supporting Document(s) SODIUM 144 mmol/L (136-145) [facility] POTASSIUM 3.7 mmol/L (3.6-5.2) [facility] CHLORIDE 114 mmol/L (100-108) H [facility] CO2 23 mmol/L (22-31) [facility] ANION GAP 7 mmol/L (7-16) [facility] UREA NITROGEN 7 mg/dL (7-24) [facility] CREATININE 0.66 mg/dL (0.60-1.00) [facility] BUN/CREAT RATIO 10.6 RATIO (10.0-20.0) [facility] GLUCOSE 89 mg/dL (70-99) [facility] CALCIUM 8.4 mg/dL (8.4-10.2) [facility] GFR >60 ml/min/1.73m2 (>59) [facility] GFR ( AMER) >60 ml/min/1.73m2 (>59) [facility] GFR INTERPRETATION [facility] --NORMAL KIDNEY FUNCTION OR MILD DISEASE - GFR >OR= 60CHRONIC KIDNEY DISEASE - GFR 15 - 59RENAL FAILURE - GFR <15 Est. GFR calculation based on the MDRDstudy equation, which assumes a steadystate for creatinine. Est. GFR should notbe used for medication dosing. ID Date Data Source [id number] 06/20/2021 04:22:37 PM EDT [facility] [place] Name Value Range Interpretation Code Description Data Che rce(s) Supporting Document(s) PT 10.6 s (9.2-11.9) [facility] PERFORMED AT [address] [facility] [address] INR 1.01 [facility] SUGGESTED THERAPEUTIC RANGES USING INR F ORSTABILIZED ANTICOAGULATED PATIENTS:STANDARD DOSE THERAPY INR 2.0-3.0 DVT, PE, PREVENT DVT OR EMBOLISMHIGH DOSE THERAPY INR 2.5-3.5 PREVENT EMBOLISM FROM MECHANICAL HEART VALVE ID Date Data Source [id number] 06/21/2021 01:18:39 PM EDT [facility] SPECIMEN DESCRIPTION URINE, COLLE CTION METHOD NOT SPECIFIEDCULTURE RESULTS NO GROWTHREPORT STATUS FINAL 06/21/2021 Name Value Range Interpretation Code Description Data Che rce(s) Supporting Document(s) ID Date Data Source [id number] 06/17/2021 09:00:00 AM EDT [facility] Name Value Range Interpretation Code Description Data Che rce(s) Supporting Document(s) SARS coronavirus 2 RNA [Presence] in Res piratory specimen by REFUGIO with probe detection NOT DETECTED [facility] This lab was reported by [facility]. ID Date Data Source [id number] 06/18/2021 12:34:21 PM EDT [facility] [place] Name Value Range Interpretation Code Description Data Che rce(s) Supporting Document(s) SPECIMEN DESCRIPTION [facility] [place] COVID 19 RESULT (NDET) [facility] [place] NEGATIVE COVID-19 RESULTS DONOT PRECLUDE COVID-2019 INFECTION ANDSHOULD NOT BE USED THE SOLE BASISFOR PATIENT MANAGEMENT DECISIONS. COMMENT [facility] [place] THE U.[place]. FDA HAS MADE THIS TEST AVAILABL EUNDER AN EMERGENCY USE AUTHORIZATION(EUA) FOR THE DETECTION AND/OR DIAGNOSISOF THE VIRUS THAT CAUSES COVID-19.THIS ASSAY AMPLIFIES AND DETECTS [employer] USING MOBILE MANAGER- MEDIATEDAMPLIFICATIONTESTING PERFORMED ON [place] [place] FIRST TEST [facility] [place] [facility] [place] SYMPTOMATIC [facility] [place] DATE OF SYMPT ONSET [facility] HOSPITALIZED [facility] ICU [facility] [place] CONGREGATE CARE SET [facility] [place] [facility] [place] ID Date Data Source [id number] 06/16/2021 12:22:08 PM EDT [facility] Name Value Range Interpretation Code Description Data Che rce(s) Supporting Document(s) Progress Note [facility] EJZUYt9sGkEUNiIa86/IWBglMSYzp1GuNYulJKv1PFgfOVQuY6JkCVY4vI3iZCR5CDbHLxTkEhGqUINv lbm [file] party supply specialist/lM7cWV9aMQseilm93InJVpSn5cwH5oWwGC+XznhIp4ye5GCO0ulyhzEMGsyn++womGsaMvwpFPen [file] ICAgICAgICAgICAgICAgICAgICAgICAgICAgICAgICAgICAgICAgICAgICAgICAgICAgICAgICAgDQog ICAgICAgICAgICAgICAgICAgICAgICAgICAgICAgIC AgICAgICAgICAgICAgICAgICAgICAgICAgICAgICAgICAgICAgICAgICAgICAgICAgICAgICAgICAgIC AgICAgICAgDQogICAgICAgICAgICAgICAgICAgICAgICAgICAgICAgICAgICAgICAgICAgICAgICAgIC AgICAgICAgICAgICAgICAgICAgICAgICAgICAgICAg ICAgICAgICAgICAgICAgICAgDQogICAgICAgICAgICAgICAgICAgICAgICAgICAgICAgICAgICAgICAg ICAgICAgICAgICAgICAgICAgICAgICAgICAgICAgICAgICAgICAgICAgICAgICAgICAgICAgICAgICAg DQogICAgICAgICAgICAgICAgICAgICAgICAgICAgIC AgICAgICAgICAgICAgICAgICAgICAgICAgICAgICAgICAgICAgICAgICAgICAgICAgICAgICAgICAgIC AgICAgICAgICAgDQogICAgICAgICAgICAgICAgICAgICAgICAgICAgICAgICAgICAgICAgICAgICAgIC AgICAgICAgICAgICAgICAgICAgICAgICAgICAgICAg ICAgICAgICAgICAgICAgICAgICAgDQogICAgICAgICAgICAgICAgICAgICAgICAgICAgICAgICAgICAg ICAgICAgICAgICAgICAgICAgICAgICAgICAgICAgICAgICAgICAgICAgICAgICAgICAgICAgICAgICAg ICAgDQogICAgICAgICAgICAgICAgICAgICAgICAgIC AgICAgICAgICAgICAgICAgICAgICAgICAgICAgICAgICAgICAgICAgICAgICAgICAgICAgICAgICAgIC AgICAgICAgICAgICAgDQogICAgICAgICAgICAgICAgICAgICAgICAgICAgICAgICAgICAgICAgICAgIC AgICAgICAgICAgICAgICAgICAgICAgICAgICAgICAg ICAgICAgICAgICAgICAgICAgICAgICAgDQogICAgICAgICAgICAgICAgICAgICAgICAgICAgICAgICAg ICAgICAgICAgICAgICAgICAgICAgICAgICAgICAgICAgICAgICAgICAgICAgICAgICAgICAgICAgICAg ISYmNOGfCVk2N0wySMSfSUGwRA6vKCi8Ii2+DQoNCm OpGSW0crRarS7VDR6xa7QgWIovOPUgo0TrPSi7PX7XJFImHBarTI9OAAujna6MPXVvMEAbpVTXd6kwQd EaWCD8WXMtBvgnQZ9GSWKiW7vhmgDmHEXxFKQGMKnxRYWDRHwjOGKYEXEcIUWxLhGeGJoaVQ0Wt6SahU A0DQo+Md0NML2di8XtTFyhGNQmLX8qgt4ZXWkHSuVq F3YnhnS1LNNdPCFjWz5RPYQjNTKdyLQbYbVpZJFFTbMyT7BduR24AAGYOc8+DQplbmRvYmoNCjMyIDAg s3YxBKj2XB7ARENjQWs2lSDvEUPyV7Dzx4JdZm74LBVkObefZ8tdmDB0l0MyFBBoWwITt0eqf81jUXVK CMHadYNrOB1tKk1dGNAeZILbCtVuHXDFKY8SXNBfJK TjyMRfCMCwCVPBKZ8CHWfdTDY7UBBdwxPizZEkDHrmJA5BHWTndeWfFlXyDMGSFKb+Ok5HEK6gd1EgDR zzBjFdFV2plf5ZIVuMLbZlY3Y9zKOmP7Y0HMuwEa4RGSMpYWMrNsbnSKDYHFgvMD8SUP1cwqL7SS4ChQ PuUDPwHREozMJtEAy1V40nhIKrXDuqYK7PUEV+Christy+ Pn1KOEByBACtPYFqCeGxWPJGNmGtP4NvH7NGf3BeK1PlZZ95sKselsWdBIcdEW6PNB9wBXVzDHDBPA2R rYTamI6iqiKiRUDgNYUQPtBkI11wuZOeEBFfYESbSLZbLv1LUFJhG0EwlhYveLxqwqPoTBNsMCIPSV2G KLoukrPwmMIhxCeiLO81jJplHP9YQd0HMtBzTJ7gep 7KiEGsWt9BXLJoEL2SQHSkWZZnQAHxNNM7UVMtJoPcTSheGCUwPEWsUBE7KKScVSQrHK4PBqEhPDBrLX B0BeLsEZJuXKAwve0CHGGrZNJ4RhZ9UaUpYGItPLRdCQijLJVkJWRaTQA1ENPiOQNsNL7IDyHkONIgML M9XtMePQZhCJIsek5VXFGvETTqSLLtPqXaHWTtMMOl HKovLZCkCSD5Dvw7ABCvUTRuLO7YIlOwYQIoGUt9UVMsAQLaLLAaaq7TNPNhUXYpEKN0GxQiYBUaZVTa DHtmRLXqCOGbOKZ8XSAkKRYtOJ7DIiZhRZBlGDQ3LoBiXMQqWXLjse1XFBPhQXQbYGlqKtZlTRWaYPIa RUwwESCuIDVtXag5LDGhXIAuMR1RGdAhCHWqOKC2EK FqRLKfVAZkxm8UFKCpRTPqIyH0IzInJOXmGLFyUEcsFFBjYUH7ITI9IMSiSGUdJG7KBmFuVDKyHORqEm hgLWXbFZOifb7BFWFhLKUrSIZfXtGfQPIsAXNmQNbvVAYbKTZ8NDB6JOTqYARqEE7BKlKoLDKlYYE3ZI EnZCFbLTAfry2SBLSjSHZ3Gjk8OEBzDVOdKGCmWFhb PVTqSYF4DgQhXPHwESQjZA3FTtHcRNIcOSj5EMkgBQWfLCTlzf7LGNNcRCT5SDo7YYPrYTEwTYExQVcc UZXwVKO0LBP1NQEvMGEiBY6BDaAdZVMnQOkzZLmxPULhKMNzss6AESZlYUH8RWZ5KWYySFZzDULhCYdi KXZlPKEnDxNeHGVbQECbMD5XNwMcPMPiWNR1ESWhTB CeZZHudy7UFAVyNSV8RIl9VhEdASKrRMGcROzgBKBnTWEaNUOwRQUiCLWbLN4AFfUrNZTtWCG4QeQlAH UwAXGoda5PJOMeMBD2NgBtLCOyICKqCJKuPSh1zvQpfOQpUDo0ZB9HY2IbpoJzOhOYBg9Ar047FQOjPM MoBk3HH4weJs5xJWFpIUPTRa4CVWa6Xii9YJQpZJAp ACNyBBawNOG1RCTyZQJhZDYyBUUfEDE+VZs1QCZ9RWJlIyKhXzQ4XtGkHcK1MzWiZjU7WJN3RJH2VA8u XSANCj4+QPhydPCvhKszGCWFOzWbEGe6VLjyKZOQLf5X ID Date Data Source [id number] 06/09/2021 10:05:00 AM EDT [facility] Name Value Range Interpretation Code Description Data Che rce(s) Supporting Document(s) SARS coronavirus 2 RNA [Presence] in Res piratory specimen by REFUGIO with probe detection NOT DETECTED [facility] This lab was reported by [facility]. ID Date Data Source [id number] 06/09/2021 05:21:45 PM EDT [facility] Name Value Range Interpretation Code Description Data Che rce(s) Supporting Document(s) SPECIMEN DESCRIPTION [facility] [place] COVID 19 RESULT (NDET) [facility] [place] NEGATIVE COVID-19 RESULTS DONOT PRECLUDE COVID-2019 INFECTION ANDSHOULD NOT BE USED THE SOLE BASISFOR PATIENT MANAGEMENT DECISIONS. COMMENT [facility] [place] THE [place] FDA HAS MADE THIS TEST AVAILABL EUNDER AN EMERGENCY USE AUTHORIZATION(EUA) FOR THE DETECTION AND/OR DIAGNOSISOF THE VIRUS THAT CAUSES COVID-19.THIS ASSAY AMPLIFIES AND DETECTS TARGETDNA USING MOBILE MANAGER- MEDIATEDAMPLIFICATIONTESTING PERFORMED ON [employer] [place] FIRST TEST [facility] [place] EMPLOYED IN HLTHCARE [facility] [place] SYMPTOMATIC [facility] [place] DATE OF SYMPT ONSET [facility] [place] HOSPITALIZED [facility] ICU [facility] [place] CONGREGATE CARE SET [facility] [place] [facility] [place] ID Date Data Source [id number] 06/07/2021 12:43:26 AM EDT [facility] [place] SPEC EXP DATE 06/08/2021ATI ENT ABO/Rh A POSITIVEANTIBODY SCREEN NEGATIVETESTING SITE PERFORMED AT [address] [place], [place] [address]BLOOD BANK COMMENT BLOOD TYPE CONFIRMED.UNIT NUMBER [id number] COMPONENT TYPE LEUKOPOOR RED CELLSUNIT DIVISION 00STATUS OF UNIT TRANSFUSEDTRANSFUSION STATUS OK TO TRANSFUSECROSSMATCH RESULT COMPATIBLE Name Value Range Interpretation Code Description Data Che rce(s) Supporting Document(s) TYPE AND SCREEN [facility] [place] ID Date Data Source [id number] 06/05/2021 02:16:00 PM EDT [facility] [place] [facility] SCAN OF THE CHEST, ABDOMEN, AND PELVI S WITH CONTRAST INDICATION: New onset worsening back pain, [facility]CL[facility] History of falls. COMPARISON: PET/CT 05/05/2021 CONTRAST: 100 mL Omnipaque 300 TECHNIQUE: The patient received oral contrast. Axial images were obtained through the chest, abdomen, and pelvis from the lung apices through the rectum following the intravenous injection of contrast. Multiplanar reformats were generated for better anatomic delineation. One or more of the following dose reduction techniques were utilized in effectively lowering the radiation dose for this examination: Automated Exposure Control, Adjustment of the mA and/or kV according to patient size, or Iterative reconstruction. CHEST: LUNGS: There is stable scattered subpleural scarring and fibrosis. Central airways are clear. PLEURA/PERICARDIUM: There are no pleural or pericardial effusions. MEDIASTINUM: The heart and great vessels are within normal limits. LOWER NECK: Thyroid and visualized lower neck are unremarkable. LYMPH NODES: There is no significant supraclavicular, axillary, hilar, or mediastinal lymphadenopathy by size criteria. MUSCULOSKELETAL/CHEST WALL: There is new endplate compression and anterior wedging at T6 compatible with recent compression fracture. There is no associated suspicious osseous lesion. The patient status post bilateral mastectomy. Median sternotomy wires are noted. There is a left chest port which appears intact and unchanged in position. ABDOMEN AND PELVIS: LIVER: The liver is normal in contour. There are no lesions. There is no biliary dilat ation. GALLBLADDER: There is stable cholelithiasis. No evidence cholecystitis. PANCREAS: Normal in contour and enhancement. No ductal dilatation. SPLEEN: Normal in size, without focal abnormality. ADRENALS: Normal KIDNEYS: No hydronephrosis. No stones. No solid masses. RETROPERITONEUM: Aorta is normal in caliber. IVC is unremarkable. BOWEL: No obstruction. No focal inflammatory change. No free air, free fluid, or drainable fluid collection. LYMPH NODES: No significant abdominal or pelvic lymphadenopathy by size criteria. PELVIS: No free fluid or abnormal pelvic masses are identified. Pel chepe organs are unremarkable. MUSCULOSKELETAL/BODY WALL: There is stable compression deformity at L1. There is no suspicious osseous lesion. IMPRESSION: 1. There is new endplate compression and anterior wedging at T6 compared to 05/05/2021 compatible with a recent compression fracture.2. There is no evidence of disease recurrence in the chest.3. Stable compression deformity at L1 compatible with chronic compression fracture. No evidence of disease recurrence or acute pathology the abdomen and pelvis. Professional interpretation performed at [facility] . Name Value Range Interpretation Code Description Data Che e(s) Supporting Document(s) ID Date Data Source [id number] 06/05/2021 02:16:00 PM EDT [facility] [place] THE CHEST, ABDOMEN, AND PELVI S WITH CONTRAST INDICATION: New onset worsening back pain, DLBCL, on rchop since 03/13/21. History of falls. COMPARISON: PET/CT 05/05/2021 CONTRAST: 100 mL Omnipaque 300 TECHNIQUE: The patient received oral contrast. Axial images were obtained through the chest, abdomen, and pelvis from the lung apices through the rectum following the intravenous injection of contrast. Multiplanar reformats were generated for better anatomic delineation. One or more of the following dose reduction techniques were utilized in effectively lowering the radiation dose for this examination: Automated Exposure Control, Adjustment of the mA and/or kV according to patient size, or Iterative reconstruction. CHEST: LUNGS: There is stable scattered subpleural scarring and fibrosis. Central airways are clear. PLEURA/PERICARDIUM: There are no pleural or pericardial effusions. MEDIASTINUM: The heart and great vessels are within normal limits. LOWER NECK: Thyroid and visualized lower neck are unremarkable. LYMPH NODES: There is no significant supraclavicular, axillary, hilar, or mediastinal lymphadenopathy by size criteria. MUSCULOSKELETAL/CHEST WALL: There is new endplate compression and anterior wedging at T6 compatible with recent compression fracture. There is no associated suspicious osseous lesion. The patient status post bilateral mastectomy. Median sternotomy wires are noted. There is a left chest port which appears intact and unchanged in position. ABDOMEN AND PELVIS: LIVER: The liver is normal in contour. There are no lesions. There is no biliary dilat ation. GALLBLADDER: There is stable cholelithiasis. No evidence cholecystitis. PANCREAS: Normal in contour and enhancement. No ductal dilatation. SPLEEN: Normal in size, without focal abnormality. ADRENALS: Normal KIDNEYS: No hydronephrosis. No stones. No solid masses. RETROPERITONEUM: Aorta is normal in caliber. IVC is unremarkable. BOWEL: No obstruction. No focal inflammatory change. No free air, free fluid, or drainable fluid collection. LYMPH NODES: No significant abdominal or pelvic lymphadenopathy by size criteria. PELVIS: No free fluid or abnormal pelvic masses are identified. Pel chepe organs are unremarkable. MUSCULOSKELETAL/BODY WALL: There is stable compression deformity at L1. There is no suspicious osseous lesion. IMPRESSION: 1. There is new endplate compression and anterior wedging at T6 compared to 05/05/2021 compatible with a recent compression fracture.2. There is no evidence of disease recurrence in the chest.3. Stable compression deformity at L1 compatible with chronic compression fracture. No evidence of disease recurrence or acute pathology the abdomen and pelvis. Professional interpretation performed at [facility] . Name Value Range Interpretation Code Description Data Che rce(s) Supporting Document(s) ID Date Data Source [id number] 06/06/2021 03:27:03 PM EDT [facility] - CORE SPECIMEN DESCRIPTION URINE, COLLE CTION METHOD NOT SPECIFIEDCULTURE RESULTS NO GROWTHREPORT STATUS FINAL 06/06/2021 Name Value Range Interpretation Code Description Data [facility] rce(s) Supporting Document(s) ID Date Data Source [id number] 05/30/2021 04:35:48 PM EDT [facility] NT INFORMATIONPatient MRN Name Date of Age Gend*PT [id number] Beatriz aCstaneda 1945 76 years F IPPT Location Admission Date/Time Visit ID Attending [id number] 02/23/212054 --- --- EPI ID CSN Admitting Provider [id number] Tracee Conway MD([id number]) Attestation signed by Kandice Flores MD at 05/30/2021 4:35 PMI saw and evaluated the patient and reviewed note. I agree with the history,physical and medical decision making with the following additions, exceptions,and/or observations:Signature: JOSÉ Godinezate: May 30, 2021Time: 4:35 PM --[facility] DISCHARGE SUMMARYPatient Name: Beatriz Castaneda of : 1945 Age 75 yearsPrimary Physician: VLADISLAV OSORIO MD PCP Mezcdsovy Date: 02/23/2021 Discharge Date: 03/02/2021dmitting Physician: Tracee Conway [facility]Dr. Candy Barnes, hematology-oncologyAdmission Diagnosis: Diffuse large B cell lymphomaSecondary Diagnoses: Principal Problem: Diffuse large B cell lymphomaActive Problems: Hypertension HypercholesterolemiaIndication for Admission:Transfer from [facility] with new DLBCL for inpatient chemotherapyBrief Hospital Course & Complications:Ms. Castaneda was recently evaluated in [place], [place] after she developed acuteonset sinus pressure and hearing loss in her right ear in November 2020. 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 She presented to the [facility] ER withuncontrolled head and facial pain where she was admitted on 02/21/21 andevaluated by oncology who recommended transfer for inpatient chemotherapy.Staging scans at [facility] 02/22/21 showed a large nasopharyngeal massmeasuring 7.2x3.6x4.8cm toward the right invading the retropharyngeal andprevertebral spaces and encircling the distal cervical right ICA. There isbulky right cervical adenopathy measuring up to 5.5cm. No evidence of diseasein the chest, abdomen, or pelvis on scans. She was transferred to [facility] on02/23/21.Following transfer she underwent a TTE which showed a normal LVEF of 60%, bonemarrow biopsy with aspirate (results pending), and had a PICC line placed. Herdiagnosis was reviewed with her and treatment options were discussed. Given thestatus of her DBLCL with double hit features and del17p, in the setting of anECOG PS < 2, she was offered da-EPOCH-R.Cycle 1, day 1 of therapy commenced 02/25/21 with Rituxan 375 mg/m2 x 1. She wasalso placed on Solumedrol 80 mg BID x 5 days (02/25-03/01/21) per treatmentprotocol. Etoposide 50 mg/m/2/day x 4 days + Vincristine 0.4 mg/m2/day x 4days + Doxorubicin 10 mg/m2/day 4 days was given from 02/26-03/01/21. She receivedCytoxan 750 mg/m2 x 1 on 02/27/21, day 5 of therapy. Allopurinol was startedbefore treatment to limit risk of tumor lysis. As she has a high OPERATIONS TRAINER-IPI score,she has also been offered OPERATIONS TRAINER prophylaxis with IT methotrexate which was given03/01/21, CSF analysis is pending at the time of this summary.Beatriz tolerated chemotherapy well with no untoward effects. Labs have beenmonitored closely and show no evidence of gross organ dysfunction or tumorlysis. She has had intermittent pain in her head and face and this wascontrolled with IV morphine (2 mg) and PO Dilaudid (2 mg). She will be providedprescriptions for Allopurinol, Dilaudid, and Compazine at discharge. Of note,on the night of 03/02/21, she reported feeling faint and had a brief syncopalepisode after washing her face with a warm washcloth. She did not require anyintervention and the episode was self-limited, sustained no injuries. The causeof her symptoms was felt to be related to a vasovagal response but she has beeninstructed to be mindful of similar symptoms in the future.On 03/01/21 we performed a repeat CT max/facial bones with IV contrast as she wasreporting ongoing pain. The image continued to show abnormal thickening ofnasopharyngeal soft tissues and cervical adenopathy, but it appears that therehas been a positive response to therapy as the largest node is measuring 1.3 cm.Additional note was mentioned of fluid in the right ear cavity and right mastoideffusion. She reports she had a tube placed in her right ear by ENT in therecent past. No bony erosion was seen.At discharge, Beatriz's PICC line was removed and a portacatheter device wasplaced in IR. Reportedly, this was a difficult insertion due to vein stenosisand we were informed by the proceduralist that the device may be subject to somemalfunction in the future. The site looks clean and intact, Beatriz wasinstructed to contact Dr. Barnes's office with any new pain, swelling, ordischarge from the area. She has also been provided a booklet with managementof chemotherapy side effects and was instructed to monitor her temperaturedaily. [facility]. She is full code at discharge.Items to follow up- Neulasta (Onpro) will be given 03/02/21 at [facility]- F/u next week with Dr. Barnes- F/u CSF results- F/u bone marrow biopsy resultsPast Medical History:Past Medical History:Diagnosis Date Hypercholesterolemia HypertensionDischarge Exam:Blood Pressure: BP: 141/84 Pulse: Heart Rate: 61Temperature: Temp: 97.4 F Respirations: Resp: 16Admission Weight: Weight: 62.5 kg (137 lb 11.2 oz) O2 Saturation: SpO2: 98 %Today's Weight: Weight: 58.5 kg (128 lb 15.5 oz)Gen: age appearing F in NAD, conversant and pleasantENT: sclerae anictericPulm: normal effort, lungs CTA bilaterallyAbd: soft, nontenderSkin: warm, dry, no rash, ulceration or bruising notedRecent Labs:Results from last 7 daysLab Units 03/01/2105WBC 10*3/uL 5.6 5.0 6.3HEMOGLOBIN g/dL 12.9 13.4 11.9*HEMATOCRIT % 36.0 36.9 33.0*PLATELETS 10*3/uL 267 301 250Results from last 7 daysLab Units 03/01/2105SODIUM mmol/L 139 139 139POTASSIUM mmol/L 3.8 3.9 3.8CHLORIDE mmol/L 106 104 106CO2 mmol/L 27 28 27BUN mg/dL 27* 20 16CREATININE mg/dL 0.58* 0.49* 0.43*GLUCOSE mg/dL 92 101* 99CALCIUM mg/dL 8.7 8.7 8.3*Ca 8.7Alb 3Tbili 1AST 15ALT 26Phos 3Mag 2.6Uric acid 2.7LDH 197Imagin02/23/21 TTE: Estimated ejection fraction is 60%. Abnormal septal motionconsistent with post-operative state. Left ventricular diastolic dysfunctionconsistent with impaired relaxation. The mitral valve is abnormal in structure.The following structuralabnormalities were observed: leaflets appear myxomatous. There is mild mitralvalve leaflet thickening. The aortic valve is mildly sclerotic with normal opening. No pericardial effusion.03/01/21 CT facial bones with contrast: 1. 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 No evidence of osseous erosion to suggest tumor invasion. No acute fracture.3. Mild mucosal thickening in the right maxillary sinus and right posteriorethmoid air cells.4. Small nonspecific right mastoid effusion and a small amount of flu id in theright middle ear cavity. Please correlate for evidence of otomastoiditis. Procedures:02/24/21: bone marrow biopsy with aspirate03/01/21: lumbar puncture with fluid analysis and IT methotrexate03/02/21: Portacath insertionDischarge Condition: stableDisposition: HomeSignature: Abril Eastman PADate: March 02, 2021Time: 6:32 PM Name Value Range Interpretation Code Description Data Che rce(s) Supporting Document(s) ID Date Data Source [id number] 05/27/2021 02:08:44 PM EDT [facility] NT INFORMATIONPatient MRN Name Date of Age Gend*PT [id number] Beatriz Castaneda 1945 76 years F HOPPT Location Admission Date/Time Visit ID Attending ProviderCV-26 05/24/21 1119 --- --- EPI ID CSN Admitting Provider [id number] Gladis Mann MD([id number]) Attestation signed by Althea Zarate DO at 05/27/2021 2:08 PMProcedure performed under my supervision, I agree with above report.Althea Zarate DO 05/27/2021 2:08 PMDepartment of Interventional Radiology ---------Brief Operative/Invasive Procedure NoteLastethan Quinn WorkmanDATE OF : 1945MRN # [id number] DATE: 05/24/2021ROVIDER:LUCAS Chaudhary 05/24/2021 3:22 PMASSISTANCE(S): NonePROCEDURE:Fluoroscopy guided lumbar puncture with METHOTREXATE 12mg injectionPRE-PROCEDURE DIAGNOSIS:Diffuse large b-cell l ymphomaPOST PROCEDURE DIAGNOSIS:Diffuse large b-cell lymphomaANESTHESIA TYPE:local. 1% lidocaine (8cc)DRAINS:noneSPECIMENS:noneESTIMATED BLOOD LOSS: MinimalGRAFTS OR IMPLANTS:noneFINDINGS: Consistent with operative diagnosisCOMPLICATIONS: noneSee dictated ANTONIA Avinaepartment of Interventional Radiology Name Value Range Interpretation Code Description Data Che rce(s) Supporting Document(s) ID Date Data Source [id number] 05/30/2021 11:26:44 AM EDT [facility] - CORE SPECIMEN DESCRIPTION MIDSTREAM UR INE,CLEAN CATCHCULTURE RESULTS <10,000 CFU/ML REPRESENTING URETHRAL FLORAREPORT STATUS FINAL 05/27/2021 Name Value Range Interpretation Code Description Data Che rce(s) Supporting Document(s) ID Date Data Source [id number] 05/25/2021 09:48:20 AM EDT [facility] NT INFORMATIONPatient MRN Name Date of Age Gend*PT [id number] Beatriz Castaneda 1945 76 years F HOPPT Location Admission Date/Time Visit ID Attending ProviderCV-05/24/21 1119 --- --- EPI ID CSN Admitting Provider [id number] Gladis Mann MD([id number]) Attestation signed by Althea Zarate DO at 05/25/2021 9:48 AMI saw and evaluated the patient and reviewed Brennan Simmons 's note. I agree withthe history, physical and medical decision making with the following additions,exceptions, and/or observations:Signature: Bonnie Wu: May 25, 2021Time: 9:48 AM Medical ImagingOutpatient History & Physical RecordCarol A WorkforestMRN: [id number] Physician: ShaileshebiancoDiagnosis: LymphomaTreatment/Procedure: Lumbar puncture with methotrexate injectionDate of Procedure: 05/24/2021 12:12 PMHistory:Pt is a 76 yo female with PMH significant for lymphoma. She is heretoday for a repeat lumbar puncture with methotrexate injection. Her last LPwith methotrexate was on 04/07/21.Review of Systems:Respiratory: Negative for shortness of breath.Cardiovascular: Negative for chest pain and leg swelling.Past Medical History:Past Medical History:Diagnosis Date Coronary artery disease Diffuse large B cell lymphoma History of transfusion Hypercholesterolemia Hypertension Lymphoma PONV (postoperative nausea and vomiting)Past Surgical History:Past Surgical History:Procedure Laterality Date BREAST SURGERY CARDIAC SURGERY carotid endarectomy Right CORONARY ARTERY BYPASS GRAFT EYE SURGERY JOINT REPLACEMENT MASTECTOMY SKIN BIOPSY VASCULAR SURGERYMedications:Medications Prior to AdmissionMedication Sig Dispense Refill Last Dose acetaminophen (TYLENOL) 325 MG tablet Take 2 tablets (650 mg total) by mouthevery 4 (four) hours as needed (mild pain) 30 tablet 0 Past Month at Unknowntime allopurinol (ZYLOPRIM) 300 MG tablet Take 1 tablet (300 mg total) by mouthdaily 30 tablet 1 05/23/2021 at Unknown time fenofibrate (LOFIBRA) 160 MG tablet Take 160 mg by mouth daily 05/23/2021 atUnknown time HYDROmorphone (DILAUDID) 2 MG tablet Take 1 tablet (2 mg total) by mouth every4 (four) hours as needed (moderate to severe pain) Max Daily Amount: 12 mg 60tablet 0 Past Month at Unknown time metoprolol tartrate (LOPRESSOR) 25 MG tablet Take 12.5 mg by mouth 2 (two)times a day 05/24/2021 at Unknown time omeprazole (PriLOSEC) 20 MG capsule Take 20 mg by mouth daily 05/24/2021 atUnknown time ondansetron (ZOFRAN-ODT) 4 MG disintegrating tablet Take 4 mg by mouth every 6(six) hours as needed for nausea Past Week at Unknown time pregabalin (LYRICA) 75 MG capsule Take 1 capsule (75 mg total) by mouth 2(tw o) times a day Max Daily Amount: 150 mg 60 capsule 11 05/24/2021 at Unknowntime senna-docusate (PERICOLACE) 8.6-50 MG Take 2 tablets by mouth nightly (Patienttaking differently: Take 1 tablet by mouth 2 (two) times a day as needed ) 60tablet 1 Past Week at Unknown time simvastatin (ZOCOR) 20 MG tablet Take 20 mg by mouth nightly 05/23/2021 atUnknown time sulfamethoxazole-trimethoprim (BACTRIM DS,SEPTRA DS) 800-160 MG per tabletTake 1 tablet by mouth See Admin Instructions One tablet BID M-W-F 1at Unknown time vitamin D, Ergocalciferol, 1.25 MG (46951 UT) CAPS Take 1 capsule by mouthevery 30 (thirty) days I capsule 1st of the month PM 04/26/2021 at Unknown time [DISCONTINUED] lidocaine Viscous HCl (XYLOCAINE) 2 % solution Take 5 mL bymouth as needed 100 mL 0 Past Month at Unknown time aspirin EC 81 MG EC tablet Take 81 mg by mouth daily More than a month atUnknown time prochlorperazine (COMPAZINE) 10 MG tablet Take 1 tablet (10 mg total) by mouthevery 6 (six) hours as needed 30 tablet 1 More than a month at Unknown timeAllergies:PenicillinsSocial History:Social HistoryTobacco Use Smoking status: Never Smoker Smokeless tobacco: Never UsedVaping Use Vaping Use: Never usedSubstance Use Topics Alcohol use: Not Currently Drug use: NeverPhysical Exam:Temp: [97.5 F] 97.5 FHeart Rate: [72] 72BP: (107)/(62) 107/62General Appearance: Comfortable, in no acute distress and well-appearing.HEENT: Normal HEENT exam.Lungs: Normal effort and normal respiratory rate.Heart: Normal rate. Regular rhythm.Ne urological: Patient is alert and oriented to person, place and time.Skin: Warm and dry.Abdomen: Abdomen is soft and non-distended. There is no abdominal tenderness.Diagnostic ReviewSignature: Shanika Steinberg: May 24, 2021Time: 12:11 PM Name Value Range Interpretation Code Description Data Che rce(s) Supporting Document(s) ID Date Data Source [id number] 05/24/2021 04:21:02 PM EDT [address] [id number] Name: BEATRIZ Quinn WORKMANDOB: 1945Sex: FOrdering Provider: CANDY MONCADACOAuthoriroe Prov: CANDY MONCADACOReferring Provider: CANDY WANGIANCOProcedure Performed: / IR LUMBAR PUNCTUREExam Date: 05/24/2021 15:16MRN: [id number] Number: [id number] Class: OutpatientAccount #: [id number] for Exam: Diffuse large b-cell lymphoma, lymph nodes of head, face, and neckTechnique: Fluoroscopy spot film obtainedFluoroscopy time: 48 SecondsNumber of Spot Images: 1Comparison: NoneFindings: FINDINGS: After the risks and benefits of the procedure were explained to the patient, informed consent was obtained. Risks include but are not limited to bleeding, infection, nerve injury, and spinal headache. 1% LIDOCAINE was used for local anesthesia. The patient was sterilely prepped and draped. Using fluoroscopic guidance, a 22- gauge spinal needle was advanced into the CSF space at the L4-L5 level. CSF was seen exiting the needle hub. METHOTREXATE 12 mg was then slowly injected intrathecally. The needle was removed and a Band-Aid was applied.This exam was performed by LUCAS Cisneros under the direct supervision of Dr ZarateComplications: None.IMPRESSION: Status post successful lumbar puncture and intrathecal injection of METHOTREXATE 12 mg.Report electronically approved by: LUCAS Cisneros On 05/24/2021 3:31 PMThe procedure described above was performed under my supervision and I agree with this reportReport electronically signed by: ALTHEA ZARATE On 05/24/2021 4:21 PMWorkstation ID: [id number] Name Value Range Interpretation Code Description Data Che rce(s) Supporting Document(s) ID Date Data Source [id number] 05/19/2021 10:15:00 AM EDT [facility] Name Value Range Interpretation Code Description Data Che rce(s) Supporting Document(s) SARS coronavirus 2 RNA [Presence] in Res piratory specimen by REFUGIO with probe detection NOT DETECTED [facility] This lab was reported by [facility]. ID Date Data Source [id number] 05/20/2021 02:32:41 AM EDT [facility] Name Value Range Interpretation Code Description Data Che rce(s) Supporting Document(s) SPECIMEN DESCRIPTION [facility] COVID 19 RESULT (NDET) [facility] NEGATIVE COVID-19 RESULTS DONOT PRECLUDE COVID-2019 INFECTION ANDSHOULD NOT BE USED THE SOLE BASISFOR PATIENT MANAGEMENT DECISIONS. COMMENT [facility] THE [place] FDA HAS MADE THIS TEST AVAILABL EUNDER AN EMERGENCY USE AUTHORIZATION(EUA) FOR THE DETECTION AND/OR DIAGNOSISOF THE VIRUS THAT CAUSES COVID-19.THIS ASSAY AMPLIFIES AND DETECTS [employer] USING MOBILE MANAGER- MEDIATEDAMPLIFICATIONTESTING PERFORMED ON [employer] FIRST TEST [facility] EMPLOYED IN HLTHCARE Lab [facility] of [facility] SYMPTOMATIC [facility] DATE OF SYMPT ONSET Lab [facility] ce of [facility] HOSPITALIZED [facility] ICU [facility] CONGREGATE CARE SET Lab [facility] [place] [facility] ID Date Data Source [id number] 05/11/2021 08:19:00 AM EDT [facility] Name Value Range Interpretation Code Description Data Che rce(s) Supporting Document(s) CBC W/AUTOMATED DIFF [facility] COMPLETE BLOOD COUNT Leukocytes [#/volume] in Blood by Automated count 2.3 10^3/uL 4.2 - 1 1.0 L [facility] Erythrocytes [#/volume] in Blood by Automated count 3.00 10^6/uL 4. 20 - 5.40 L [facility] Hemoglobin [Mass/volume] in Blood 9.7 g/dL 12.0 - 16.0 L [facility] Hematocrit [Volume Fraction] of Blood by Automated count 29.1 % 3 7.0 - 47.0 L [facility] Erythrocyte mean corpuscular volume [Entitic volume] by Auto mated count 97.0 fL 81.0 - 101 [facility] Erythrocyte mean corpuscular hemoglobin [Entitic mass] by Automated count 32.3 pg 27.0 - 34.0 [facility] Erythrocyte mean corpuscular hemoglobin concentration [Mass/volume] by Automated count 33.3 g/dL 31.0 - 36.0 [facility] Erythrocyte distribution width [Ratio] by Automated count 18.0 % 11.5 - 14.5 H [facility] Platelets [#/volume] in Blood by Automated count 129 10^3/uL 150 - 45 0 L [facility] Platelet mean volume [Entitic volume] in Blood by Automated count 10.0 fL 7.4 - 10.4 [facility] Neutrophils/100 leukocytes in Blood by Automated count 73.9 % 37. 0 - 80.0 [facility] Lymphocytes/100 leukocytes in Blood by Manual count 12.2 % 25.0 - 40.0 L [facility] Monocytes/100 leukocytes in Blood by Automated count 11.8 % 3.0 - 8.0 H [facility] Eosinophils/100 leukocytes in Blood by Automated count 0.4 % 0.0 - 7.0 [facility] Basophils/100 leukocytes in Blood by Automated count 0.4 % 0.0 - 2.5 [facility] %IG 1.3 % 0.0 - 0.0 H [facility] %NRBC 0.0 % 0.0 - 0.0 [facility] al Neutrophils [#/volume] in Blood by Automated count 1.69 10^3/uL 2.00 - 6.90 L [facility] Lymphocytes [#/volume] in Blood by Automated count 0.28 10^3/uL 0.60 - 3.40 L [facility] Monocytes [#/volume] in Blood by Automated count 0.27 10^3/uL 0.00 - 0.90 [facility] Eosinophils [#/volume] in Blood by Automated count 0.01 10^3/uL 0.00 - 0.70 [facility] Basophils [#/volume] in Blood by Automated count 0.01 10^3/uL 0.00 - 0.20 [facility] #IG 0.03 10^3/uL 0.00 - 0.10 [facility] #NRBC 0.00 10^3/uL 0.00 - 0.00 [facility] MANUAL DIFF SEE BELOW [facility] ital Segmented neutrophils/100 leukocytes in Blood by Manual count 81 % 37 - 80 H [facility] %LYMPH 11 % 25 - 40 L [facility] al %MONO 8 % 3 - 8 [facility] al RBC MORPH SEE BELOW [facility] al Anisocytosis [Presence] in Blood by Light microscopy 1+ MARY ELLEN L: NONE SEEN A [facility] Macrocytes [Presence] in Blood by Light microscopy 1+ NORMAL: NONE SEEN A [facility] Poikilocytosis [Presence] in Blood by Light microscopy 1+ NOR MAL: NONE SEEN A [facility] Polychromasia [Presence] in Blood by Light microscopy 1+ NORM AL: NONE SEEN A [facility] { SICKLE CELL (NORMAL: NONE SEEN ) Platelet adequacy [Presence] in Blood by Light microscopy DE CREASED NORMAL: NORMAL A [facility] COMMENT: ID Date Data Source [id number] 05/11/2021 08:01:00 AM EDT [facility] Name Value Range Interpretation Code Description Data Che rce(s) Supporting Document(s) COMPREHENSIVE METABOLIC PANEL [facility] COMPREHENSIVE METABOLIC PANEL Sodium [Moles/volume] in Serum or Plasma 140 mEq/L 134 - 153 [facility] Potassium [Moles/volume] in Serum or Plasma 3.3 mEq/L 3.6 - 5.0 L [facility] Chloride [Moles/volume] in Serum or Plasma 105 mEq/L 98 - 107 [facility] Carbon dioxide, total [Moles/volume] in Serum or Plasma 25 MEQ/L 22 - 30 [facility] Glucose [Mass/volume] in Serum or Plasma 102 MG/DL 70 - 99 H [facility] BUN 8 MG/DL 7 - 21 [facility] Creatinine [Mass/volume] in Serum or Plasma 0.6 MG/DL 0.7 - 1.5 L [facility] BUN/CREAT 13 8 - 27 [facility] Protein [Mass/volume] in Serum or Plasma 5.2 G/DL 6.3 - 8.2 L [facility] Albumin [Mass/volume] in Serum or Plasma 3.8 G/DL 3.9 - 5.0 L [facility] Globulin [Mass/volume] in Serum by calculation 1.4 GM/DL 2.4 - 3.2 L [facility] A/G RATIO 2.7 0.8 - 2.0 [facility] Calcium [Mass/volume] in Serum or Plasma 9.1 MG/DL 8.4 - 10.2 [facility] Bilirubin.total [Mass/volume] in Serum or Plasma <0.7 MG/DL 0.2 - 1.3 [facility] Alkaline phosphatase [Enzymatic activity/volume] in Serum or Plasma 48 U/L 38 - 126 [facility] Aspartate aminotransferase [Enzymatic activity/volume] in Serum or Plasma 11 U/L 5 - 40 [facility] Alanine aminotransferase [Enzymatic activity/volume] in Seru m or Plasma 8 U/L 7 - 56 [facility] Anion gap 3 in Serum or Plasma 10.0 mmol/L 8.0 - 16.0 [facility] 76 [facility] GFR >60 mL/min [facility] ital AFR AMER GFR >60 [facility] Male GFR In terprentation 20-49 yrs >60 mL/min Normal 50-59 yrs >56 mL/min Normal 60-69 yrs >49 mL/min Normal 70-79yrs >42 mL/min Normal 80 and above >35 mL/min Normal Female GFR Interpretation 20-39 yrs >60 mL/min Normal 40-49 yrs >58 mL/min Normal 50-59 yrs >51 mL/min Normal 60-69 yrs >45 mL/min Normal 70-79 yrs >39 mL/min Normal 80 and above >32 mL/min Normal ID Date Data Source [id number] 05/05/2021 04:23:16 PM EDT [facility] Name Value Range Interpretation Code Description Data Che rce(s) Supporting Document(s) *Follow Up Visit PANTERA v1 [facility] SPDBCc3hEiENLcLos8odWTtuEJJrv7TqTHz5FZ9JP9EiQUuflgImAERtjvHwZ9ArXMDvMWMJEUdhLTly 1dH [file] AH8L+REgyX16uWbI6nwbOQ02WhRANIWSqNBEODfP+pc8O6cKk2M/EQPAPPwhvw4/gUaSI/kl+Kannan+ml2 azP4FN5Zkro+I/Ao1FqMyWQeJJiDsHgHdjG/+FjqN/oX+j89iGu+Online Merchandiser+EnchE/eI0tWPifiRmbbE1+QP3 [file] EbROwgQTAN5Taz9Psmw+BFVkH5p6XIJ+C2HrfuMjuHU2xEGAQvKqCOr7mJ+Jamal+F/sjBnLPf3T08dT/+ Online Merchandiser/gkDwcQY1BtJsLFU+mu+FHPcZQNCmR5KhgvikngK [file] cIuPpwQTuUgWss5JSV6M6XZqV+4zWp3TFYQM8aOKe/X4Ow4OykXh+YmsmyeV3n/INSPECTOR METAL FABRICATING/L3u3hhJRokQxji [file] RHgypi5stSO6tugk6y+roger/BHEDz6KqJg1d/Df1dQ/ iG7dxNb0fmsA6waOd8jmA9wCdFngE24/ls1h9FiAk1/cBhcV9zFUgdq7syt7uS2RdXglWO0BCl11WQqs apK1+BAwlfQUUnTFfI63ccI9iqvVvqL++K/DULKsFekN8QdTGZBv2ksDGEnKL7Bp2Hzl+1TVvat2IZRT jaoHYPJmFPIat6BuOsi6i5TKdy/RrtXqjAWhuDADrM j2Eh0Hq1Wp6VCWzXSiXIlk7JfUrTPdaAqrZ8Qefg3PpiaMG5pWHTEJJf1EZpeXYto3rLcVYxTuMNyJfT yv3ZiUTSVK29PaZ2QpYA6I+jM2lKyimnecFRAyGeaA6/jT6MJNyHqEyuCruxjD5EZT0uTAqXboNPndgX WpsuZVdZbQaa3DlDBixf58kK3OwmmUUSyXyUufUZcm FftmwAzodk8zWyusarqBYsKXfpwDHtNCYinsvk3uF/dH7b2/it intern/k2Jc938grNlQ10xhZ1hX9o1sK6wfH [file] ZjPLzfLDs8YabNYbPwOV9BDHx= ID Date Data Source [id number] 05/05/2021 04:16:27 PM EDT [facility] Name Value Range Interpretation Code Description Data Che rce(s) Supporting Document(s) *Follow Up Visit PANTERA v1 [facility] RLOXJq2iUiYLIsXgb4kjIYfzAVNdb9TnZDd1ZY6BQ6LhO5EzONSrJWGWGJyzSEGsEM0kTGHsO3ZxVU4f zdH [file] rYD8SBp/fWh+educational recruiter+ezsQ/eGy/j6L2CIQ3/7lnh5rDI74IX5J9K6KHCFjs3H27VKuLk09BcgeRp5uN+7N [file] XAzzEL+2ijoF/Giulia+WybkHjxGU7mVXc4JJ9A+OoDD6 nvj/m1HGynncSM/+gUVquBi+04VCTz9+Dbk0Eu7SF+kTL3yns/Sxm/k5uPx/jqZj8lcuCqztoxqxjHy5 if//se5n7QljPl4YHK+Y1ygpiti9+SM2aY5obw4e8nOcmcxDRgHj59yDzLlmt9LqvVKNJBOISEGpzwfx BJejL06bd+x3GZsucp7GFHDk2VpNlcM9Sr5VG3xKXP ZR406WQxmcdoLb9GktFxzPdfQ0G/sObjMb+2il+4cficIPzrYTvjmNor/uf43h7Dj8uKFYTZhlQFJFA6 XJKc7wenecC2Va3ZAtLzuZfEc8p7eGanKI+2it+dHlDjaTZ8grrTCiN+vWJ+bRW/QcOgU+gqNnCxgYth JoJQYuStBFyAHALYwsq5jDp6ncm2HofDMQAVOrgq5z iKYmNIn7u99iv+1qzhv6QdDz1puSYqo/k08bXr6/toHUJLRH7UF/DKz1hMkE+uPU5ox1/QMOgUuoaaSv rmWF3hhziHk24yO3wBjNrsQI1cijLIEKDEqW+z5avbJRIGCvBWOuWdSzwE/NoqfoOGoYGLmkr4+JdyaK +OA0rGf1Ho1JQa/adolescent counselor/GhwfRmc08atBykWEyAVt3Mp [file] ydAZQft+it intern+zYyuapRNJ67YZpl05uPCtGJn+i+yhJMVCMDjpH38qyn5H0wJtazk6l+Wg9QT58+Mxnsaj [file] kl+Kannan+tj3qqL6UW0Wsny+I/Gt3IjKqLJvOJaOtScTzrE/+FjqN/oX+j89iGu+Online Merchandiser+EnchE/sB4ePItqm MpusJ8+IX1EIbAf4X5fEdR2VlS/ST/jl/VwvlDbz5m Y/hW4Tru6+MP4+UNrQ5GvADDV3BuVTC+hl9AG0/aK4ER8A8KXi55Oo6Y6Xa620SJ8W/xH/Gb+Mi0qZQp Mvk/ZwveJkETJC0PTFdFm4PT2/B3/HyCfkc/ID+ClnaMzaR2hISeo8iw8oHq3lroSQ1uH6mQLiLRfOuP ni+/LD+Lt4blng/FmhXJgkzBa+Nh3Lb6w/actv+5uO 0Hw1z37HxJnDxdZLDY9CBsJa93BnpR4F/Z8Q6Ol6PsBevUI4J6VersyvUO8XP+Xb0YM0Z33FG0Yv1EB6 OorMfDKsNKSEe3J7SnBZrWMMQSNluH5uY/wdJm+RE+PbqSCQg1npI+H2ds13TmbG8caUl92gMf7UKKPE ktc8NlsNw3p4ejzNKzNWzNtEAoWC9m45I62xa04/Gf 6e4l/mW/j3+zv1XWSNWQMVUJAlHM8HP1fO7K8sVt6XXxV/Ys8GoLtdRe1TPM9CLunLVkVLU28JN7TmTP DqvKkMRO4BB7b2Y5HvSjeKkc2VhwfTyhnZg0MHh+D52/ARVIL/jJYKhAOpSE+hPfgzcor+xSyKsuF98S zhhLs8s8jC0BHblE50DM5m92R+Li0Zln3aak/jZ9HX tInT2HF0W0+GwpST7WTsdlT8BcwImDstoGybse4RCESbu3iCxQmTxLZVigP5jg9vfm5X5+dBLDK4M+RT M1oPK/o8+gI/cs8xJn1mZHaQwXH1xWE9Tm5uFSqt1JIjRBI+1PFNhNk9Y+3DAkjxUuFaugidRb+i7/Rosy [file] u11iDolzdbCzKVryYJPF9San6Xift+WOWkS5u1MXP+K3SmjnRqsJU9yEVTQfGoOOz0jO+Jamal+F/fgXlM Xb4X52jE/+Online [file] yarder operator+uxrh47rVcJ7pTV3Uk1C9wceIWMQQPaJDhyffjL+9MFDDlcjbmqHVyomx1sngxlj/4FuK/8y0+yZom [file] 021xvipXR1hAwVenNPkNfBhp6KUX9Q2IZqK+8sXk4XNTWF8vFRd/C3Wl3GqkSo+EiwgmrP0y/INSPECTOR METAL FABRICATING/Z8o5 [file] blUE0CSKSWD0cKZRIc6dogOTiclYnMZYL+GLOSi9lE hV//Mj107D/owOJinLZ+uUbrP2t9RRa9zSvoe30OWdu1fpctQrSZSn51FcMymb5+66LFEsoz74tz3oX9 EwH0gseXWjcBSoQSljwHh/a+9IcLZolb1rQ6f1Zr56IU5Ey0OkHzFmYShjVIfTloQbOhSKCMMFEYJR6K lcCvjN3W4lUuFT60CtXUbCAQ5GBMriBWJoa4AfSZ0B lGbUdCYh9z80rbO52AJM3h76e+d7vu+ZgV+fe2/intu678ojkij8ZOeYmZGEUQn2i7BcuqIfyFCrxGkr NBYR1yrQer4S6Ko7zOQ7HxumYh5wVf30csg7GqJ6whQ235l7zR+zuNnOlWKmgceVG0pS0sVo3f5+GjUY AR9wZM8TeUZQfnMRcrysolkfNOf65+LrC304+ty6ZG gK8ljJECRDjykXpvXPf3INQ7QVbI9jpdL/X107sAekOhQlTGLc+vYjs/0lZTs5cdMU7f3IrI4gz4tLBH 3koaYUWhtSgpr8GH1JO8y5jBY1oY7EM43uma3GpDnl/UWKzIVyHSHZNlfB9fTNA3oWAxM8qOn6Oiz2o2 h6tlkOvkcnA152ykeWmmrjiAKpitKeDjU6owVMqQ6W yoRsaDr3hOqjfOLioQtHOkB8qiySX9OqNv2AHpKmdwl9LETD/pwsiTfcQlIsxSIolvJBBNmellrhZSln oUT9bV/LF/L1u7c12ytAmHtBF48Qf5D1hG7JMzLMK9Bi93Qd0DdITsW0HiaGE1dXTVg9FEv+S3421/LN 8EbMjSFraWokGNINl+5MQLT9oaUU1lMQUeRN4uhjZr zIWONn6eEeTqF5CWvQuwfT0YgMIENrUG+yb5coxWkTJzB3GXvNGlCPzn4AKt515b8//XlFV51/0pzi4+ nOWd0367atL78s4sN26WMMdKNei6et35TlR4L7KVL+vBkooivjm31+x6NF+jdaJza1ceD6cnYZ8e1DCo tq9qqIFptmLPykmg3owKL3ijmz6l+roger/IPREs0TkD c0v/Df1dQ/aD3teYp7ifrN0hzPm5daZ6tVjUsaK52/gg8l8BePd8/jSbqP8kKDcaf3bpv7nN0ZbHlmJE 6WQz87UAnhajA0+ZPutsNMRvZLuF48wqO6osdYauD++K/ABWGxNilI4OuVJYDo6ifFLHlYZ6Ql9Kfd+8 OVdsu1TNZBeqrIBBBwXKGlw0FwKnm1n7THei/RrtXq kJQxmXVIuSz6Bv8Bl5Wj6RNKzQOdKPaz0JiBkFRiqWafW2Scow6TwqmLA3yACDPYZv4XBtfZKcw4iImR NqVnINoRgGte7QjHYMAO43ZfK4WiMG0B+nJ9aQkcsfoqMGSrOxhP6/iY1ALRpGjDhuPxnziV0BIP7iZH hCcxVIbvaBHrkvWAsPmKav4GcLAmfa53fU0OprtTFG tLlDsvOBloYhjeiRoxss6hRrjgtmvQSfLNwhnCEmSHTnhikm3lF/dH7b2/it intern/q4Eg988boDjA40uaZ3n [file] Cg== ID Date Data Source [id number] 05/05/2021 04:09:00 PM EDT [facility] EXAM: PETCT Limited Area Skull Base To M idThi INDICATION: DLBC ON TREATMENT X3 CYCLES COMPARISON: No prior PET/CT. Outside 03/10/2021 abdomen/pelvis CT. Same day maxillofacial CT. Outside 03/02/[address] TECHNIQUE: 7.46 mCi F-18 FDG were administered. PET images from the skull base through the thighs were obtained. FINDINGS: Neck: Asymmetric right nasopharyngeal and soft palate activity (SUV max 6.1). Nasopharyngeal mass decreased significantly in size since 03/02/2021. Chest: Linear esophageal activity, which may be physiologic or related to reflux. Mild bilateral hilar activity, slightly greater than background mediastinal activity (SUV max 2.5 on the right and 2.8 on the left), not well assessed on CT images without contrast. Otherwise physiologic activity. Attenuation correction CT images show a right IJ Port-A-Cath with tip at the cavoatrial junction. Status post CABG. Bibasilar atelectasis. Abdomen and Pelvis: Eccentric cecal wall thickening near the base of the appendix with activity (SUV max 4.0). Otherwise physiologic uptake. Attenuation correction CT images show hepatic steatosis. Cholelithiasis. Excreted contrast in the renal collecting systems and urinary bladder. Musculoskeletal: Diffuse marrow activity. Attenuation correction CT images show unchanged mild L1 vertebral body compression fracture. Degenerative changes of the spine. Median sternotomy. IMPRESSION: 1. Significantly decreased size of nasopharyngeal mass since 03/02/2021 with asymmetric nasopharyngeal activity on the right. Deauville 4 2. Focal eccentric wall thickening in the cecum abutting the appendiceal base with associated metabolic activity. This is concerning for a colonic mass or possibly a focal colitis. If not otherwise recently performed, recommend further evaluation with colonoscopy. 3. Mild bilateral hilar activity, likely related to small lymph nodes, is nonspecific. Attention on follow-up is suggested. 4. Diffuse marrow activity, likely related to posttreatment marrow response. Above findings and recommendations will be called by our office to the referring practice with notification documented separately. Deauville Score:1. No uptake above background.2. Uptake at an initial site that is less than or equal to mediastinum.3. Uptake at an initial site that is greater than mediastinum but less than or equal to liver.4. Uptake at an initial site that is moderately increased compared to the liver at any site.5. Uptake at an initial or new site that is markedly increased compared to the liver.X. New areas of uptake unlikely related to lymphoma. Professional interpretation performed at [facility] [place] . 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 Comparison: CT maxillofacial 03/02/2021 FINDINGS: There has been marked interval improvement in the previously seen nasopharyngeal mass with only mild prominence of the right nasopharyngeal soft tissues remaining. There is minimal soft tissue thickening along the right posterior nasal passage, significantly improved in the interval and resolution of previously seen soft tissue density along the left posterior nasopharynx. Soft tissue density extending into the right pterygopalatine fissure has also improved in the interval. No enlarged upper cervical lymph nodes are noted. The bilateral parotid glands, submandibular glands and sublingual spaces are unremarkable. Structures of the oropharynx are within normal limits. The epiglottis is not thickened. The visualized brain is unremarkable. The patient is status post bilateral intraocular lens implants. There is no acute fracture or suspicious osseous lesion. IMPRESSION: Marked interval improvement of a nasopharyngeal mass with only slight prominence of the right nasopharyngeal soft tissues remaining. Professional interpretation performed at [facility] . Name Value Range Interpretation Code Description Data Che rce(s) Supporting Document(s) ID Date Data Source [id number] 05/04/2021 01:37:04 PM EDT [address] [id number] Name: BEATRIZ Quinn WORKMANDOB: 1945Sex: FOrdering Provider: Authorizing Prov: Referring Provider: Procedure Performed: / IR LUMBAR PUNCTURE WITH CHEMO INJECTIONExam Date: 05/04/2021 13:25MRN: [id number] Number: [id number] Class: OutpatientAccount #: [id number] for Exam: Diffuse large b-cell lymphoma, lymph nodes of head, face, and neckTechnique: Lumbar puncture with injection of intrathecal methotrexate.Comparison: April 07, 2021.Findings: Informed written consent was obtained. The procedure and risks which included but not limited to severe headaches, bleeding, infection, and nerve root injury was explained to the patient.Under fluoroscopy a haja was placed on the skin at L3. This area was then prepped and draped in the usual sterile fashion. A sterile barrier was applied. Local anesthesia was achieved using 1% LIDOCAINE.A 20 gauge spinal needle was then advanced into the thecal sac. 14 mL of slightly cloudy initially blood-tinged later clear CSF fluid was obtained and sent to labs. Isovue-300 M was slowly injected which confirmed placement. Methotrexate 12 mg was slowly injected. Fluoroscopic images were obtained and saved.No immediate complications.IMPRESSION: Lumbar puncture with removal of 14 mL of CSF fluid with injection of 12 mg of methotrexate intrathecal.Report electronically signed by: ASHLEIGH ROE On 05/04/2021 1:37 PMWorkstation ID: [id number] Name Value Range Interpretation Code Description Data Che rce(s) Supporting Document(s) ID Date Data Source [id number] 05/08/2021 07:11:40 AM EDT [facility] Name Value Range Interpretation Code Description Data Che rce(s) Supporting Document(s) SOURCE (RESOE) [facility] RESULT [facility] PERFORMING LAB [facility] [address] [address] ID Date Data Source [id number] 05/04/2021 10:37:47 AM EDT [facility] NT INFORMATIONPatient MRN Name Date of Age Gend*PT [id number] Beatriz Castaneda 1945 76 years F HOPPT Location Admission Date/Time Visit ID Attending ProviderCV-05/04/21 0949 --- Gladis Mann MD([id number]) EPI ID CSN Admitting Provider [id number] Gladis Mann MD([id number])H&P reviewed. Pt examined and there are no changes to the H&P.Signature: ANTONIA Steinbergate: May 04, 2021Time: 10:37 AM Name Value Range Interpretation Code Description Data Che rce(s) Supporting Document(s) ID Date Data Source [id number] 05/14/2021 07:04:49 PM EDT [facility] [place], [place] [address]Tel# MISCELLANEOUS CYTOLOGY REPORTAccession Number: [id number] of Specimen(s): A: Cerebrospinal FluidClinical Diagnosis and History: Gross DescriptionCerebrospinal Fluid: 3 cc of clear colorless fluid (tube #3) received Final DiagnosisSpecimen AdequacySatisfactoryFinal DiagnosisNEGATIVE FOR MALIGNANCY Rare neutrophils and lymphocytes among erythrocytes.Comments:Flow cytometry performed at [facility] ([id number])showed no evidence of leukemia or non-Hodgkin lymphoma.Processed and screened at Laboratory [facility],Cytology, [address] [place] [address], [facility].As applicable, positive and negative controls for all immunohistochemicaland/or special stains were reviewed and considered appropriate. Reported: 05/14/2021Electronically Signed Out By Lamonte Conroy MDCo[facility] PatholoCytotechnologist: Shani Saldana CT(ASCP)[facility]bcICD code: C83.30CPT code: A: 09193M Name Value Range Interpretation Code Description Data Che rce(s) Supporting Document(s) ID Date Data Source [id number] 04/29/2021 08:07:00 AM EDT [facility] Name Value Range Interpretation Code Description Data [facility] rce(s) Supporting Document(s) SARS coronavirus 2 RNA [Presence] in Res piratory specimen by REFUGIO with probe detection NOT DETECTED [place] This lab was reported by Lab [facility]. ID Date Data Source [id number] 05/03/2021 01:25:01 PM EDT Lyle Niño [facility] Name Value Range Interpretation Code Description Data Che rce(s) Supporting Document(s) SPECIMEN DESCRIPTION [facility] COVID 19 RESULT (NDET) [facility] NEGATIVE COVID-19 RESULTS DONOT PRECLUDE COVID-2019 INFECTION ANDSHOULD NOT BE USED THE SOLE BASISFOR PATIENT MANAGEMENT DECISIONS. COMMENT [facility] THE [place] FDA HAS MADE THIS TEST AVAILABL EUNDER AN EMERGENCY USE AUTHORIZATION(EUA) FOR THE DETECTION AND/OR DIAGNOSISOF THE VIRUS THAT CAUSES COVID-19.THIS ASSAY AMPLIFIES AND DETECTS [employer] USING MOBILE MANAGER- MEDIATEDAMPLIFICATIONTESTING PERFORMED ON [place] [place] FIRST TEST Lab [facility] [place] EMPLOYED IN HLTHCARE [facility] SYMPTOMATIC [facility] [place] DATE OF SYMPT ONSET [facility] HOSP[facility]IZED [facility] [place] [facility] CONGREGATE CARE SET [facility] [place] ID Date Data Source [id number] 04/19/2021 02:01:15 PM EDT [facility] Name Value Range Interpretation Code Description Data Che rce(s) Supporting Document(s) SIGNAL Outreach v2 [facility] DSPZOh1nAdBUWdPds0bzUChrUZFwb4WpUOi0WO9BY7YkC0BbCLQsLSOADSkcYACkKM3nNSGjS1BoFV9a zdH [file] [facility]/QotggD23mBsCYdVYxgKxEFZMOumksZm+Eu1nj+Aa2bSkWpT55oS6J1DcD8BWVpHM43v3WSyCz [file] [facility] [file] [id number] ID Date Data Source [id number] 04/14/2021 04:55:58 PM EDT [facility] Name Value Range Interpretation Code Description Data Che rce(s) Supporting Document(s) *Follow Up Visit PANTERA v1 [facility] EVVWRd2qWuNPKrAzo7rbASlhOEBby0KrXWv2JT7NC7Zqzb7Ro4VgTDFsEIRKWFmrPQWeBV6tQVBdJ8Kf UeX [file] 7t9W/+1aFc296o0t58gh46zTaz///3n9++9enLh7/8xT/8w8c//8O//Pr6b/7+365/+4+du870bynn9l 61ijePfcg+bMlOP//vwtfe53RW/Zs6I86dkawAk4/0gf66+kv6w30WU2FV6cx43D45Qw58QY4Jpvex8a fS+9UL/98zL1/Enz/[id number]/6jx/463634tn// [file] master dyer+W13p46OKLj213CKA8ndOpgmT8TgdMo31XEJ4coxy07xcvBN0DkzybYTnba5OMz79Gh7zDwuklLL5 TxzQ9vXUE8398MClIRtlVojS+EbULKYbxFZe8YdfIpG2v4AXweXimeRDSNtiC6MKbHHcXIHXbcDEICmN Drzd99txYMGmrhHgiS//ryQz2yp7F9pi+jxK70lzvr HvlxsuzgQtl+F6loDCCe7gum1ddl1WSOpnHf0Fw/hnhpVh0QpnECp42C6I98YBC8hdiE5HkB42jMnm1B jEsVGf3wm2G7JsvOSwA/QATu4fwZs4ln5cz8HrO4dJI51qOWM0gGE2uFpbqGP9Pnapr0EmvTeuI7UpzC t14pYY4Npiw34jevCF6QYfchLPx0t8CRjGWMcaqRLv sKEdoVQ35AKsSYzBIC0DbCplXDeYMm26e1JIZK1Yx0pFQaxuEIUcgKFtrZLoaWuYmXjBSUdHOFRuG8YS OptSs52s7ABGrDpsiLnZ7XpLz4BpapJtgI2ukzlgZVnP0v+KZs3DAW3W2gwg80etcaht68dTt9EVQmg/ 3XxlF9+Fik/o6I4ojZE1YOjYTYywj0U8VOqhqaIS64 RaUYmuRH0+Z/ePwQaPmsoHRWUMr4wY+tm0UmkppuCRkOVOAqYxes1h08KCSk9w16TQGoz+3MRiW0Ftg9 0J47vXIKtT3nlgA2BpVegU2USE+s/96CKw8cIp4SZKE28rnPXQW+IoZHAQUmiyW5BlAW4Rq4ha0pzBjZ NOyEGz/rNAugSaVdAJOWhWWbMKmlXQCTloVlmzCppV [file] [place]/suozobdS9KfdKEw8G2k9p4CXjAJg1NtUcDti97r+W2gEhdj9wBrg/Z6srxh341Gjzisg+bYIz5kUE [file] 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 ID Date Data Source [id number] 04/07/2021 03:22:12 PM EDT [address] [id number] Name: BEATRIZ Quinn WORKMANDOB: 1945Sex: FOrdering Provider: FIDELIA DIXONAuthorizing Prov: FIDELIA DIXONReferring Provider: FIDELIA DIXONProcedure Performed: / IR LUMBAR PUNCTURE WITH CHEMO INJECTIONExam Date: 04/07/2021 13:21MRN: [id number] Number: [id number] Class: OutpatientAccount #: [id number] for Exam: high risk lymphoma, in need of cycle 2Technique: See findingsComparison: NoneFINDINGS: After the risks and benefits of the procedure were explained to the patient, informed consent was obtained. Risks include but are not limited to bleeding, infection, nerve injury, and spinal headache. 1% LIDOCAINE was used for local anesthesia. The patient was sterilely prepped and draped. Using fluoroscopic guidance, a 22-gauge spinal needle was advanced into the CSF space at the L4-L5 level. CSF was seen exiting the needle hub. A total of 9 mL of clear CSF was collected into 4 separate vials. 12 mg methotrexate injected intrathecally. The needle was removed and a Band-Aid was applied.Providers: Dr. Smith.Complications: None.IMPRESSION: Status post successful lumbar puncture with intrathecal chemotherapy injection. Report electronically signed by: HAJA SMITH On 04/07/2021 3:22 PMWorkstation ID: [id number] Name Value Range Interpretation Code Description Data Che rce(s) Supporting Document(s) ID Date Data Source [id number] 04/07/2021 01:15:06 PM EDT [facility] NT INFORMATIONPatient MRN Name Date of Age Gend*PT [id number] Beatriz Castaneda 1945 76 years F HOPPT Location Admission Date/Time Visit ID Attending ProviderCV04/07/21 0834 --- Gladis Mann MD([id number]) EPI ID CSN Admitting Provider [id number] Gladis Mann MD([id number]) Attestation signed by Haja Smith MD at 04/07/2021 1:15 PMI have reviewed and agree with the above note.Haja Smith MD --Medical ImagingOutpatient History & Physical RecordBeatriz LordDignity Health Mercy Gilbert Medical CenterN: [id number] Physician: Fidelia Dixon NPDiagnosis: LymphomaTreatment/Procedure: Lumbar puncture with chemo injectionDate of Procedure:History:This is a 76 year old female who has a history of lymphoma and needlumbar puncture with chemo injected. Patient recently discharge from [facility] on[facility]/01/21. Last lumbar puncture with chemo was done on 03/01/21 without anycomplications.Review of Systems:Respiratory: Negative.Cardiovascular: N egative.Neurological: Negative.General: Positive for fatigue and abdominal discomfort but no fevers.Past Medical History:Past Medical History:Diagnosis Date Coronary artery disease History of severe nausea and vomiting after administration of anesthetic agent History of transfusion Hypercholesterolemia Hypertension LymphomaPast Surgical History:Past Surgical History:Procedure Laterality Date BREAST SURGERY CARDIAC SURGERY carotid endarectomy Right CORONARY ARTERY BYPASS GRAFT EYE SURGERY JOINT REPLACEMENT MASTECTOMY SKIN BIOPSY VASCULAR SURGERYMedications:Medications Prior to AdmissionMedication Sig Dispense Refill Last Dose acetaminophen (TYLENOL) 325 MG tablet Take 2 tablets (650 mg total) by mouthevery 4 (four) hours as needed (mild pain) 30 tablet 0 04/06/2021 at Unknown time allopurinol (ZYLOPRIM) 300 MG tablet Take 1 tablet (300 mg total) by mouthdaily 30 tablet 1 04/06/2021 at Unknown time HYDROmorphone (DILAUDID) 2 MG tablet Take 1 tablet (2 mg total) by mouth every4 (four) hours as needed (moderate to severe pain) Max Daily Amount: 12 mg 60tablet 0 04/06/2021 at Unknown time metoprolol tartrate (LOPRESSOR) 25 MG tablet Take 12.5 mg by mouth 2 (two)times a day 04/06/2021 at Unknown time mirtazapine (REMERON) 30 MG tablet Take 1 tablet (30 mg total) by mouthnightly 30 tablet 0 04/06/2021 at Unknown time omega-3 acid ethyl esters (LOVAZA) 1 g capsule Take 2 g by mouth 2 (two) timesa day 2 capsules AM and 2 Capsules PM 04/06/2021 at Unknown time omeprazole (PriLOSEC) 20 MG capsule Take 20 mg by mouth 4 (four) times a weekOn Saturday, Saturday, Saturday and Saturday Unknown at Unknown time ondansetron (ZOFRAN-ODT) 4 MG disintegrating tablet Take 4 mg by mouth every 6(six) hours as needed for nausea Unknown at Unknown time pregabalin (LYRICA) 75 MG capsule Take 1 capsule (75 mg total) by mouth 2(two) times a day Max Daily Amount: 150 mg 60 capsule 11 04/06/2021 at Unknowntime prochlorperazine (COMPAZINE) 10 MG tablet Take 1 tablet (10 mg total) by mouthevery 6 (six) hours as needed 30 tablet 1 Unknown at Unknown time senna-docusate (PERICOLACE) 8.6-50 MG Take 2 tablets by mouth nightly 60tablet 1 Past Week at Unknown time simvastatin (ZOCOR) 20 MG tablet Take 20 mg by mouth nightly 04/06/2021 atUnknown time lidocaine Viscous HCl (XYLOCAINE) 2 % solution Take 5 mL by mouth as mL 0 More than a month at Unknown time vitamin D, Ergocalciferol, 1.25 MG (42661 UT) CAPS Take 1 capsule by mouthevery 30 (thirty) days I capsule 1st of the month PM 03/26/2021llergies:PenicillinsSocial History:Social HistoryTobacco Use Smoking status: Never Smoker Smokeless tobacco: Never UsedVaping Use Vaping Use: Never assessedSubstance Use Topics Alcohol use: Not Currently Drug use: NeverPhysical Exam:Temp: [98.4 F] 98.4 FHeart Rate: [98] 98Resp: [18] 18BP: (107)/(70) 107/70General Appearance: Comfortable and in no acute distress.Lungs: Normal respiratory rate. Breath sounds clear to auscultation.Heart: S1 normal and S2 normal.Neurological: Patient is alert and oriented to person, place and time.Skin: Warm, dry and pale.Abdomen: Abdomen is soft.Diagnostic ReviewLab ResultsComponent Value Date WBC 2.9 (L) 04/01/2021 HGB 8.5 (L) 04/01/2021 HCT 24.0 (L) 04/01/2021 MCV 97.4 (H) 04/01/2021 PLT 405 04/01/2021ab ResultsComponent Value Date INR 0.97 03/30/2021 INR 1.00 02/24/2021 PROTIME 10.2 03/30/2021 PROTIME 10.5 02/24/2021ignature: Jose Peters, NPDate: April 07, 2021Time: 12:34 PM Name Value Range Interpretation Code Description Data Che rce(s) Supporting Document(s) ID Date Data Source [id number] 04/07/2021 01:13:15 PM EDT [facility] NT INFORMATIONPatient MRN Name Date of Age Gend*PT [id number] Beatriz Castaneda 1945 76 years F HOPPT Location Admission Date/Time Visit ID Attending ProviderCV-02 04/07/21 0834 --- Gladis Mann MD([id number]) EPI ID CSN Admitting Provider [id number] Gladis Mann MD([id number])Brief Operative/Invasive Procedure NoteCarol A WorkmanDATE OF : 1945MRN # [id number] DATE: 04/07/2021ROVIDER:Haja Smith MD 04/07/2021 1:12 PMASSISTANCE(S): NonePROCEDURE:Lumbar puncture with methotrexate injectionPRE-PROCEDURE DIAGNOSIS:LymphomaPOST PROCEDURE DIAGNOSIS:LymphomaANESTHESIA TYPE:localDRAINS:0SPECIMENS:9 cc clear csfESTIMATED BLOOD LOSS: NoneGRAFTS OR IMPLANTS:0FINDINGS: Consistent with operative diagnosis/ Puncture at L4-5COMPLICATIONS: [facility] Name Value Range Interpretation Code Description Data Che rce(s) Supporting Document(s) ID Date Data Source [id number] 04/09/2021 07:52:29 AM EDT [facility] SPECIMEN DESCRIPTION CEREBROSPINA L FLUIDSPECIAL REQUESTS NONEGRAM STAIN RARE (<1/LPF) WHITE BLOOD CELLS NO BACTERIA NOTE: THIS IS A PRELIMINARY GRAM STAIN RESULT R EPORTED BY STAFF AT THE HOSPITAL LAB. A FINAL RE PORT WILL BE ISSUED BY THE MICROBIOLOGY STAFF AT THE CORE LAB. THE ORDERING PHYSICIAN WILL BE NOT IFIED OF ANY CHANGES. NOTE: THE GRAM STAIN HAS BEEN REVIEWED/REPEATE D BY MICRO STAFF AND THERE ARE NO CHANGES TO THE PRELIMINARY RESULT.CULTURE RESULTS NO GROWTHREPORT STATUS FINAL 04/09/2021 Name Value Range Interpretation Code Description Data Che rce(s) Supporting Document(s) ID Date Data Source [id number] 04/07/2021 04:59:58 PM EDT [facility] Name Value Range Interpretation Code Description Data Che rce(s) Supporting Document(s) CSF TOTAL PROTEIN <2 mg/dL (15-45) L [facility] ID Date Data Source [id number] 04/07/2021 04:58:13 PM EDT [facility] Name Value Range Interpretation Code Description Data Che rce(s) Supporting Document(s) CSF GLUCOSE 55 mg/dL (40-75) [facility] ID Date Data Source [id number] 04/07/2021 04:16:37 PM EDT [facility] Name Value Range Interpretation Code Description Data Che rce(s) Supporting Document(s) TUBE NUMBER 1 [facility] COLOR (COLR) [facility] APPEAR (CLEAR) [facility] SUPERNATANT COLOR (COLR) [facility] SUPERNATANT APPEAR (CLEAR) [facility] RBC <1 /uL (0) H [facility] TOTAL NUCLEATED CNT <1 /uL (0-5) [facility] NEUT % PENDING % (0-6) [facility] LYMPH % 60 % (40-80) [facility] MONO % 40 % (15-45) [facility] TOTAL CELLS COUNTED 25 [facility] ID Date Data Source [id number] 04/04/2021 09:46:00 AM EDT [facility] Name Value Range Interpretation Code Description Data Che rce(s) Supporting Document(s) CBC W/AUTOMATED DIFF [facility] COMPLETE BLOOD COUNT Leukocytes [#/volume] in Blood by Automated count 11.0 10^3/uL 4.2 - 11.0 [facility] Erythrocytes [#/volume] in Blood by Automated count 2.45 10^6/uL 4. 20 - 5.40 L [facility] Hemoglobin [Mass/volume] in Blood 8.2 g/dL 12.0 - 16.0 L [facility] Hematocrit [Volume Fraction] of Blood by Automated count 24.3 % 3 7.0 - 47.0 L [facility] Erythrocyte mean corpuscular volume [Entitic volume] by Auto mated count 99.2 fL 81.0 - 101 [facility] Erythrocyte mean corpuscular hemoglobin [Entitic mass] by Automated count 33.5 pg 27.0 - 34.0 [facility] Erythrocyte mean corpuscular hemoglobin concentration [Mass/volume] by Automated count 33.7 g/dL 31.0 - 36.0 [facility] Erythrocyte distribution width [Ratio] by Automated count 17.7 % 11.5 - 14.5 H [facility] Platelets [#/volume] in Blood by Automated count 220 10^3/uL 150 - 45 0 [facility] Platelet mean volume [Entitic volume] in Blood by Automated count 9.3 fL 7.4 - 10.4 [facility] Neutrophils/100 leukocytes in Blood by Automated count 75.7 % 37. 0 - 80.0 [facility] Lymphocytes/100 leukocytes in Blood by Manual count 2.3 % 25.0 - 40.0 L [facility] Monocytes/100 leukocytes in Blood by Automated count 0.2 % 3.0 - 8.0 L [facility] Eosinophils/100 leukocytes in Blood by Automated count 3.4 % 0.0 - 7.0 [facility] Basophils/100 leukocytes in Blood by Automated count 0.4 % 0.0 - 2.5 [facility] %IG 18.0 % 0.0 - 0.0 [facility] 0.0 % 0.0 - 0.0 [facility] al Neutrophils [#/volume] in Blood by Automated count 8.36 10^3/uL 2.00 - 6.90 H [facility] Lymphocytes [#/volume] in Blood by Automated count 0.25 10^3/uL 0.60 - 3.40 L [facility] Monocytes [#/volume] in Blood by Automated count 0.02 10^3/uL 0.00 - 0.90 [facility] Eosinophils [#/volume] in Blood by Automated count 0.38 10^3/uL 0.00 - 0.70 [facility] Basophils [#/volume] in Blood by Automated count 0.04 10^3/uL 0.00 - 0.20 [facility] #IG 1.98 10^3/uL 0.00 - 0.10 H [facility] H ospital #NRBC 0.00 10^3/uL 0.00 - 0.00 [facility] ospital MANUAL DIFF SEE BELOW [facility] ital Segmented neutrophils/100 leukocytes in Blood by Manual count 84 % 37 - 80 H [facility] BAND 8 % 0 - 5 H [facility] Hospit al %LYMPH 2 % 25 - 40 L [facility] Hospit al %MONO 2 % 3 - 8 L [facility] %EOS 1 % 0 - 7 [facility] Metamyelocytes/100 leukocytes in Blood by Manual count 3 % [facility] RBC MORPH SEE BELOW [facility] Anisocytosis [Presence] in Blood by Light microscopy 2+ MARY ELLEN L: NONE SEEN A [facility] Microcytes [Presence] in Blood by Light microscopy 2+ NORMAL: NONE SEEN A [facility] HYPO 2+ NORMAL: NONE SEEN A [facility] { SICKLE CELL (NORMAL: NONE SEEN ) Target cells [Presence] in Blood by Light microscopy 1+ MARY ELLEN L: NONE SEEN A [facility] Uma cells [Presence] in Blood by Light microscopy 2+ NORMAL: NONE SEEN A [facility] Platelet adequacy [Presence] in Blood by Light microscopy NORMAL NORMAL: NORMAL [facility] COMMENT: ID Date Data Source [id number] 04/04/2021 09:34:00 AM EDT [facility] Name Value Range Interpretation Code Description Data Che rce(s) Supporting Document(s) COMPREHENSIVE METABOLIC PANEL [facility] COMPREHENSIVE METABOLIC PANEL Sodium [Moles/volume] in Serum or Plasma 144 mEq/L 134 - 153 [facility] Potassium [Moles/volume] in Serum or Plasma 3.8 mEq/L 3.6 - 5.0 [facility] Chloride [Moles/volume] in Serum or Plasma 108 mEq/L 98 - 107 H [facility] Carbon dioxide, total [Moles/volume] in Serum or Plasma 29 MEQ/L 22 - 30 [facility] Glucose [Mass/volume] in Serum or Plasma 95 MG/DL 70 - 99 [facility] BUN 10 MG/DL 7 - 21 [facility] Creatinine [Mass/volume] in Serum or Plasma 0.4 MG/DL 0.7 - 1.5 L [facility] BUN/CREAT 25 8 - 27 [facility] Protein [Mass/volume] in Serum or Plasma 4.9 G/DL 6.3 - 8.2 L [facility] Albumin [Mass/volume] in Serum or Plasma 3.3 G/DL 3.9 - 5.0 L [facility] Globulin [Mass/volume] in Serum by calculation 1.6 GM/DL 2.4 - 3.2 L [facility] A/G RATIO 2.1 0.8 - 2.0 H [facility] al Calcium [Mass/volume] in Serum or Plasma 8.2 MG/DL 8.4 - 10.2 L [facility] Bilirubin.total [Mass/volume] in Serum or Plasma <0.7 MG/DL 0.2 - 1.3 [facility] Alkaline phosphatase [Enzymatic activity/volume] in Serum or Plasma 65 U/L 38 - 126 [facility] Aspartate aminotransferase [Enzymatic activity/volume] in Serum or Plasma 11 U/L 5 - 40 [facility] Alanine aminotransferase [Enzymatic activity/volume] in Seru m or Plasma 12 U/L 7 - 56 [facility] Anion gap 3 in Serum or Plasma 7.0 mmol/L 8.0 - 16.0 L [facility] AGE 76 yrs [facility] NON-AA GFR >60 mL/min [facility]osp ital AFR AMER GFR >60 [facility] pital Male GFR In terprentation 20-49 yrs >60 mL/min Normal 50-59 yrs >56 mL/min Normal 60-69 yrs >49 mL/min Normal 70-79yrs >42 mL/min Normal 80 and above >35 mL/min Normal Female GFR Interpretation 20-39 yrs >60 mL/min Normal 40-49 yrs >58 mL/min Normal 50-59 yrs >51 mL/min Normal 60-69 yrs >45 mL/min Normal 70-79 yrs >39 mL/min Normal 80 and above >32 mL/min Normal ID Date Data Source [id number] 04/04/2021 09:31:00 AM EDT [facility] Name Value Range Interpretation Code Description Data Che rce(s) Supporting Document(s) Lactate dehydrogenase [Enzymatic activity/volume] in Serum o r Plasma 186 U/L 135 - 214 [facility] ID Date Data Source [id number] 04/02/2021 10:20:00 AM EDT [facility] Name Value Range Interpretation Code Description Data Che rce(s) Supporting Document(s) SARS coronavirus 2 RNA [Presence] in Res piratory specimen by REFUGIO with probe detection NOT DETECTED [facility] This lab was reported by [facility]. ID Date Data Source [id number] 04/03/2021 11:56:15 AM EDT [facility] Name Value Range Interpretation Code Description Data Che rce(s) Supporting Document(s) SPECIMEN DESCRIPTION [facility] COVID 19 RESULT (NDET) [facility] NEGATIVE COVID-19 RESULTS DONOT PRECLUDE COVID-2019 INFECTION ANDSHOULD NOT BE USED THE SOLE BASISFOR PATIENT MANAGEMENT DECISIONS. COMMENT [facility] [place] THE [place] FDA HAS MADE THIS TEST AVAILABL EUNDER AN EMERGENCY USE AUTHORIZATION(EUA) FOR THE DETECTION AND/OR DIAGNOSISOF THE VIRUS THAT CAUSES COVID-19.THIS ASSAY AMPLIFIES AND DETECTS TARGETDNA USING MOBILE MANAGER- MEDIATEDAMPLIFICATIONTESTING PERFORMED ON Edge[employer] PANTHER FIRST TEST [facility] [place] EMPLOYED IN HLTHCARE [facility] [place] SYMPTOMATIC [facility] [place] DATE OF SYMPT ONSET [facility] [place] [facility] [place] CONGREGATE CARE SET [facility] [place] [facility] [place] ID Date Data Source [id number] 04/01/2021 08:58:33 AM EDT [facility] NT INFORMATIONPatient MRN Name Date of Age Gend*PT [id number] Beatriz Castaneda 1945 76 years F IPPT Location Admission Date/Time Visit ID Attending [id number] 03/27/21 1104 --- Raleigh Collins MD([id number]) EPI ID CSN Admitting Provider [id number] Candy Barnes MD([id number]) [facility] DISCHARGE SUMMARYPatient Name: Beatriz Castaneda of : 1945 Age 76 yearsPrimary Physician: VLADISLAV OSORIO MD PCP Mympvclhn Date: 03/27/2021 Discharge Date:She will be discharged from [facility] Diagnoses:Principal Problem: Diffuse large B cell lymphomaResolved Problems: * No resolved hospital problems. *Discharge Medications:Current Discharge Medication ListSTART taking these medications Detailssenna-docusate (PERICOLACE) 8.6-50 MG Take 2 tablets by mouth nightlyQty: 60 tablet, Refills: 1CONTINUE these medications which have NOT CHANGED Detailsacetaminophen (TYLENOL) 325 MG tablet Take 2 tablets (650 mg total) by mouthevery 4 (four) hours as needed (mild pain)Qty: 30 tablet, Refills: 0allopurinol (ZYLOPRIM) 300 MG tablet Take 1 tablet (300 mg total) by mouth dailyQty: 30 tablet, Refills: 1HYDROmorphone (DILAUDID) 2 MG tablet Take 1 tablet (2 mg total) by mouth every 4(four) hours as needed (moderate to severe pain) Max Daily Amount: 12 mgQty: 60 tablet, Refills: 0lidocaine Viscous HCl (XYLOCAINE) 2 % solution Take 5 mL by mouth as neededQty: 100 mL, Refills: 0metoprolol tartrate (LOPRESSOR) 25 MG tablet Take 12.5 mg by mouth 2 (two) timesa daymirtazapine (REMERON) 30 MG tablet Take 1 tablet (30 mg total) by mouth nightlyQty: 30 tablet, Refills: 0omega-3 acid ethyl esters (LOVAZA) 1 g capsule Take 2 g by mouth 2 (two) times aday 2 capsules AM and 2 Capsules PMomeprazole (PriLOSEC) 20 MG capsule Take 20 mg by mouth 4 (four) times a week , Saturday, Saturday and Saturdayondansetron (ZOFRAN-ODT) 4 MG disintegrating tablet Take 4 mg by mouth every 6(six) hours as needed for nauseapregabalin (LYRICA) 75 MG capsule Take 1 capsule (75 mg total) by mouth 2 (two)times a day Max Daily Amount: 150 mgQty: 60 capsule, Refills: 11prochlorperazine (COMPAZINE) 10 MG tablet Take 1 tablet (10 mg total) by mouthevery 6 (six) hours as neededQty: 30 tablet, Refills: 1simvastatin (ZOCOR) 20 MG tablet Take 20 mg by mouth nightlyvitamin D, Ergocalciferol, 1.25 MG (37188 UT) CAPS Take 1 capsule by mouth every30 (thirty) days I capsule 1st of the month PMSTOP taking these medications aspirin 81 MG chewable tablet docusate sodium (COLACE) 100 MG capsule fentaNYL (DURAGESIC) 12 MCG/HRFollow Up Instructions:The patient was given an after visit summary.Patient will follow up with ANNAMARIA in 1 days.Items needing special attention:Keep appointment for Robyn in the [facility] office tomorrow.Brief Hospital Course:76 yo woman with high risk DLBCL admitted for Melissa-EPOCH chemotherapy. As hasbeen the case with prior cycle, she tolerated the treatment well with no acutecomplications and was discharged to home in good condition. Has f/u appointmentscheduled in our office for Robyn on the day after discharge and f/uappointment scheduled with Dr. Barnes/JUAREZ.Developed borderline hypernatremia over the course of hospitalization due to IVchemotherapy. Stressed the need to continue intake of water to keep the sodiumlevel from rising further. Has good renal function so anticipate that hekidneys will correct the derangement over the next couple of days and has f/uscheduled in the office with repeat labs.Discharge Exam:Blood Pressure: BP: (!) 163/95 Pulse: Heart Rate: 80Temperature: Temp: 97.7 F Respirations: Resp: 16Admission Weight: Weight: 58.1 kg (128 lb) O2 Saturation: SpO2: 98 %Discharge Weight: Weight: 58.1 kg (128 lb) BMI: Body mass index is 23.41 kg/m .Physical Exam General well developed, well nourished, cooperative, smiling, in no apparentdistress HEENT Normal Lungs clear to auscultation Heart regular rate and rhythm Abdomen soft, non-tender, non-distended, no organomegaly or masses Musculoskeletal negative Neuro normal without focal findings and mental status, speech normal, alertand oriented [id number] Pertinent Findings: noneDiagnostics:Imaging:NoneProcedures:Melissa-EPOCHConsultants:noneRecent Labs:CBC with Diff:Lab ResultsComponent Value Date WBC 6.5 03/30/2021 RBC 2.33 (L) 03/30/2021 HGB 8.0 (L) 03/30/2021 HCT 23.4 (L) 03/30/2021 MCV 100.2 (H) 03/30/2021 MCH 34.5 (H) 03/30/2021 MCHC 34.4 03/30/2021 RDW 19.7 (H) 03/30/2021 PLT 439 03/30/2021 MPV 7.1 03/30/2021 LYMPHOPCT 9.0 (L) 03/15/2021 MONOPCT 1.0 03/15/2021 EOSPCT 1.0 03/15/2021 BASOPCT 0.2 03/02/2021 NEUTROABS 12.0 (H) 03/15/2021 MONOABS 0.2 03/15/2021 BASOSABS 0.0 03/02/2021MP:Lab ResultsComponent Value Date NA 147 (H) 03/30/2021 K 4.0 03/30/2021 CL 115 (H) 03/30/2021 CO2 27 03/30/2021 ANIONGAP 5 (L) 03/30/2021 BUN 16 03/30/2021 CREATININE 0.41 (L) 03/30/2021 BCR 39.0 (H) 03/30/2021 GLU 104 (H) 03/30/2021 CALCIUM 8.5 03/30/2021 ALBUMIN 2.8 (L) 03/30/2021 GLOB 2.0 (L) 03/30/2021 AGRC 1.4 03/30/2021 ALKPHOS 61 03/30/2021 LABBILI 0.4 03/30/2021 AST 8 (L) 03/30/2021 ALT 16 03/30/2021 GFRAA >60 03/30/2021 GFRNONAA >60 03/30/2021teresa Colilns MD8:50 AMTotal time spent for discharge on date of discharge: 20 minutes Name Value Range Interpretation Code Description Data Che rce(s) Supporting Document(s) ID Date Data Source [id number] 04/01/2021 09:31:18 AM EDT [facility] Name Value Range Interpretation Code Description Data Che rce(s) Supporting Document(s) SODIUM 145 mmol/L (136-145) [facility] POTASSIUM 3.5 mmol/L (3.6-5.2) L [facility] CHLORIDE 113 mmol/L (100-108) H [facility] CO2 30 mmol/L (22-31) [facility] ANION GAP 2 mmol/L (7-16) L [facility] UREA NITROGEN 14 mg/dL (7-24) [facility] CREATININE 0.33 mg/dL (0.60-1.00) L [facility] BUN/CREAT RATIO 42.4 RATIO (10.0-20.0) H [facility] GLUCOSE 85 mg/dL (70-99) [facility] CALCIUM 8.2 mg/dL (8.4-10.2) L [facility] GFR >60 ml/min/1.73m2 (>59) [facility] GFR ( AMER) >60 ml/min/1.73m2 (>59) [facility] GFR INTERPRETATION [facility] --NORMAL KIDNEY FUNCTION OR MILD DISEASE - GFR >OR= 60CHRONIC KIDNEY DISEASE - GFR 15 - 59RENAL FAILURE - GFR <15 Est. GFR calculation based on the MDRDstudy equation, which assumes a steadystate for creatinine. Est. GFR should notbe used for medication dosing. ID Date Data Source [id number] 04/01/2021 09:12:12 AM EDT [facility] Name Value Range Interpretation Code Description Data Che rce(s) Supporting Document(s) WBC 2.9 10*3/uL (4.1-11.0) L [facility] RBC 2.46 10*6/uL (4.00-5.40) L [facility] HGB 8.5 g/dL (12.0-16.0) L [facility] HCT 24.0 % (36.0-47.0) L [facility] MCV 97.4 fL (80.0-95.0) H [facility] MCH 34.5 pg (27.0-32.0) H [facility] MCHC 35.4 g/dL (32.0-36.0) [facility] RDW 17.8 % (10.5-14.5) H [facility] PLT 405 10*3/uL (150-450) [facility] MPV 7.3 fL (7.1-10.7) [facility] ID Date Data Source [id number] 03/30/2021 11:37:15 AM EDT [facility] [place] NT INFORMATIONPatient MRN Name Date of Age Gend*PT [id number] Beatriz Castaneda 1945 76 years F IPPT Location Admission Date/Time Visit ID Attending [id number] 03/27/21 1104 --- Raleigh Collins MD([id number]) EPI ID CSN Admitting Provider [id number] Candy Barnes MD([id number]) Attestation signed by Althea Zarate DO at 03/30/2021 11:37 AMI saw and evaluated the patient and reviewed Brennan Simmons 's note. I agree withthe history, physical and medical decision making with the following additions,exceptions, and/or observations:Signature: Bonnie Wu: March 30, 2021Time: 11:37 AM --Pt is a 76/ yo female with high grade large B cell lymphoma.IR consulted for lumbar puncture with methotrexate injection.Pt is on ASA which needs to be held for 5 days prior to lumbar puncture. Lastdose 03/27 according to [facility] documentation.Signature: Shanika Steinberg: March 28, 2021Time: 8:36 AM Name Value Range Interpretation Code Description Data Che rce(s) Supporting Document(s) ID Date Data Source [id number] 03/30/2021 07:54:11 AM EDT [facility] Name Value Range Interpretation Code Description Data Che rce(s) Supporting Document(s) SODIUM 147 mmol/L (136-145) H [facility] POTASSIUM 4.0 mmol/L (3.6-5.2) [facility] CHLORIDE 115 mmol/L (100-108) H [facility] CO2 27 mmol/L (22-31) [facility] ANION GAP 5 mmol/L (7-16) L [facility] UREA NITROGEN 16 mg/dL (7-24) [facility] CREATININE 0.41 mg/dL (0.60-1.00) L [facility] BUN/CREAT RATIO 39.0 RATIO (10.0-20.0) H [facility] GLUCOSE 104 mg/dL (70-99) H [facility] CALCIUM 8.5 mg/dL (8.4-10.2) [facility] TOTAL PROTEIN 4.8 g/dL (6.4-8.2) L [facility] ALBUMIN 2.8 g/dL (3.2-4.5) L [facility] GLOBULIN 2.0 g/dL (2.7-4.3) L [facility] ALB/GLOB RATIO 1.4 RATIO [facility] ALKALINE PHOSPHATASE 61 U/L (45-117) [facility] BILIRUBIN,TOTAL 0.4 mg/dL (0.0-1.0) [facility] PLEASE NOTE:Total bilirubin results may be falselyelevated in patients taking Eltrombopag. AST (SGOT) 8 U/L (11-39) L [facility] ALT (SGPT) 16 U/L (12-78) [facility] GFR >60 ml/min/1.73m2 (>59) [facility] GFR ( AMER) >60 ml/min/1.73m2 (>59) [facility] GFR INTERPRETATION [facility] --NORMAL KIDNEY FUNCTION OR MILD DISEASE - GFR >OR= 60CHRONIC KIDNEY DISEASE - GFR 15 - 59RENAL FAILURE - GFR <15 Est. GFR calculation based on the MDRDstudy equation, which assumes a steadystate for creatinine. Est. GFR should notbe used for medication dosing. ID Date Data Source [id number] 03/30/2021 07:39:57 AM EDT [facility] Name Value Range Interpretation Code Description Data Che rce(s) Supporting Document(s) APTT 20.3 s (22.0-34.3) L [facility] ID Date Data Source [id number] 03/30/2021 07:39:57 AM EDT [facility] Name Value Range Interpretation Code Description Data Che rce(s) Supporting Document(s) PT 10.2 s (9.2-11.9) [facility] INR 0.97 [facility] SUGGESTED THERAPEUTIC RANGES USING INR F ORSTABILIZED ANTICOAGULATED PATIENTS:STANDARD DOSE THERAPY INR 2.0-3.0 DVT, PE, PREVENT DVT OR EMBOLISMHIGH DOSE THERAPY INR 2.5-3.5 PREVENT EMBOLISM FROM MECHANICAL HEART VALVE ID Date Data Source [id number] 03/30/2021 07:29:01 AM EDT [facility] Name Value Range Interpretation Code Description Data Che rce(s) Supporting Document(s) WBC 6.5 10*3/uL (4.1-11.0) [facility] RBC 2.33 10*6/uL (4.00-5.40) L [facility] HGB 8.0 g/dL (12.0-16.0) L [facility] HCT 23.4 % (36.0-47.0) L [facility] MCV 100.2 fL (80.0-95.0) H [facility] MCH 34.5 pg (27.0-32.0) H [facility] MCHC 34.4 g/dL (32.0-36.0) [facility] RDW 19.7 % (10.5-14.5) H [facility] PLT 439 10*3/uL (150-450) [facility] MPV 7.1 fL (7.1-10.7) [facility] ID Date Data Source [id number] 03/29/2021 04:11:01 PM EDT [facility] Name Value Range Interpretation Code Description Data Che rce(s) Supporting Document(s) URIC ACID 1.7 mg/dL (2.6-6.0) L [facility] ID Date Data Source [id number] 03/29/2021 03:43:25 PM EDT [facility] Name Value Range Interpretation Code Description Data Che rce(s) Supporting Document(s) PHOSPHORUS 2.6 mg/dL (2.5-4.5) [facility] ID Date Data Source [id number] 03/29/2021 03:43:25 PM EDT [facility] Name Value Range Interpretation Code Description Data Che rce(s) Supporting Document(s) MAGNESIUM 2.4 mg/dL (1.7-2.4) [facility] ID Date Data Source [id number] 03/29/2021 03:43:25 PM EDT [facility] Name Value Range Interpretation Code Description Data Che rce(s) Supporting Document(s) LDH 194 U/L (84-246) [facility] ID Date Data Source [id number] 03/29/2021 07:40:55 AM EDT [facility] Name Value Range Interpretation Code Description Data Che rce(s) Supporting Document(s) SODIUM 146 mmol/L (136-145) H [facility] POTASSIUM 4.3 mmol/L (3.6-5.2) [facility] CHLORIDE 114 mmol/L (100-108) H [facility] CO2 25 mmol/L (22-31) [facility] ANION GAP 7 mmol/L (7-16) [facility] UREA NITROGEN 13 mg/dL (7-24) [facility] CREATININE 0.48 mg/dL (0.60-1.00) L [facility] BUN/CREAT RATIO 27.1 RATIO (10.0-20.0) H [facility] GLUCOSE 130 mg/dL (70-99) H [facility] CALCIUM 7.9 mg/dL (8.4-10.2) L [facility] TOTAL PROTEIN 5.1 g/dL (6.4-8.2) L [facility] ALBUMIN 2.6 g/dL (3.2-4.5) L [facility] GLOBULIN 2.5 g/dL (2.7-4.3) L [facility] ALB/GLOB RATIO 1.0 RATIO [facility] ALKALINE PHOSPHATASE 64 U/L (45-117) [facility] BILIRUBIN,TOTAL 0.3 mg/dL (0.0-1.0) [facility] PLEASE NOTE:Total bilirubin results may be falselyelevated in patients taking Eltrombopag. AST (SGOT) 9 U/L (11-39) L [facility] ALT (SGPT) 18 U/L (12-78) [facility] GFR >60 ml/min/1.73m2 (>59) [facility] GFR ( AMER) >60 ml/min/1.73m2 (>59) [facility] GFR INTERPRETATION [facility] --NORMAL KIDNEY FUNCTION OR MILD DISEASE - GFR >OR= 60CHRONIC KIDNEY DISEASE - GFR 15 - 59RENAL FAILURE - GFR <15 Est. GFR calculation based on the MDRDstudy equation, which assumes a steadystate for creatinine. Est. GFR should notbe used for medication dosing. ID Date Data Source [id number] 03/29/2021 07:00:12 AM EDT [facility] Name Value Range Interpretation Code Description Data Che rce(s) Supporting Document(s) WBC 5.0 10*3/uL (4.1-11.0) [facility] RBC 2.51 10*6/uL (4.00-5.40) L [facility] HGB 8.6 g/dL (12.0-16.0) L [facility] HCT 25.1 % (36.0-47.0) L [facility] MCV 99.9 fL (80.0-95.0) H [facility] MCH 34.3 pg (27.0-32.0) H [facility] MCHC 34.3 g/dL (32.0-36.0) [facility] RDW 18.3 % (10.5-14.5) H [facility] PLT 496 10*3/uL (150-450) H [facility] MPV 7.3 fL (7.1-10.7) [facility] ID Date Data Source [id number] 03/28/2021 09:52:05 AM EDT [facility] Name Value Range Interpretation Code Description Data Che rce(s) Supporting Document(s) SODIUM 145 mmol/L (136-145) [facility] POTASSIUM 4.1 mmol/L (3.6-5.2) [facility] CHLORIDE 114 mmol/L (100-108) H [facility] CO2 25 mmol/L (22-31) [facility] ANION GAP 6 mmol/L (7-16) L [facility] UREA NITROGEN 12 mg/dL (7-24) [facility] CREATININE 0.39 mg/dL (0.60-1.00) L [facility] BUN/CREAT RATIO 30.8 RATIO (10.0-20.0) H [facility] GLUCOSE 114 mg/dL (70-99) H [facility] CALCIUM 8.3 mg/dL (8.4-10.2) L [facility] TOTAL PROTEIN 5.2 g/dL (6.4-8.2) L [facility] ALBUMIN 2.7 g/dL (3.2-4.5) L [facility] GLOBULIN 2.5 g/dL (2.7-4.3) L [facility] ALB/GLOB RATIO 1.1 RATIO [facility] ALKALINE PHOSPHATASE 72 U/L (45-117) [facility] BILIRUBIN,TOTAL 0.3 mg/dL (0.0-1.0) [facility] PLEASE NOTE:Total bilirubin results may be falselyelevated in patients taking Eltrombopag. AST (SGOT) 11 U/L (11-39) [facility] ALT (SGPT) 17 U/L (12-78) [facility] GFR >60 ml/min/1.73m2 (>59) [facility] GFR ( AMER) >60 ml/min/1.73m2 (>59) [facility] GFR INTERPRETATION [facility] --NORMAL KIDNEY FUNCTION OR MILD DISEASE - GFR >OR= 60CHRONIC KIDNEY DISEASE - GFR 15 - 59RENAL FAILURE - GFR <15 Est. GFR calculation based on the MDRDstudy equation, which assumes a steadystate for creatinine. Est. GFR should notbe used for medication dosing. ID Date Data Source [id number] 03/28/2021 08:58:21 AM EDT [facility] Name Value Range Interpretation Code Description Data Che rce(s) Supporting Document(s) WBC 5.3 10*3/uL (4.1-11.0) [facility] RBC 2.57 10*6/uL (4.00-5.40) L [facility] HGB 8.7 g/dL (12.0-16.0) L [facility] HCT 25.3 % (36.0-47.0) L [facility] MCV 98.5 fL (80.0-95.0) H [facility] MCH 33.9 pg (27.0-32.0) H [facility] MCHC 34.4 g/dL (32.0-36.0) [facility] RDW 17.1 % (10.5-14.5) H [facility] PLT 539 10*3/uL (150-450) H [facility] MPV 7.5 fL (7.1-10.7) [facility] ID Date Data Source [id number] 03/27/2021 05:03:23 PM EDT [address] [id number] Name: BEATRIZ Quinn WORKMANDOB: 1945Sex: FOrdering Provider: FIDELIA DIXONAuthoriroe Prov: FIDELIA DIXONRefmelodie Provider: Procedure Performed: / US HEAD NECKExam Date: 03/27/2021 15:34MRN: [id number] Number: [id number] Class: InpatientAccount #: [id number] for Exam: nasopharyngeal lymphoma with dysphagiaTechnique: Real time sonographic images were obtained.Comparison: NoneFindings: Superficial ultrasound evaluation right side of the neck in region of clinical fullness reveals multiple small nodes. The largest has abnormal morphology with no echogenic fatty hilum measuring 1.4 x 2.0 x 0.6 cm. The other nodes are much smaller in size and have a normal morphology.IMPRESSION: Abnormal 1.4 x 2.0 x 0.6 cm lymph node right-sided neck and minimal fullness. This may be related to patient's lymphoma and neoplastic in nature. Inflammatory or infectious etiologies are also consideration. Clinical follow-up is sugges ainsley. If biopsy is warranted, ultrasound guidance could be obtained.This study was communicated via the departmental critical results reporting protocol.Report electronically signed by: JOURDAN STACK On 03/27/2021 5:03 PMWorkstation ID: [id number] Name Value Range Interpretation Code Description Data Che rce(s) Supporting Document(s) ID Date Data Source [id number] 03/27/2021 03:01:47 PM EDT [facility] Name Value Range Interpretation Code Description Data Che rce(s) Supporting Document(s) SIGNAL Outreach v2 [facility] SCGEEb6pDgBREcFvk0wiNUamZODrq7QhWMi4DB5ZA8KcA3AIFGkbpJQlB06qVSRtaKQcwj5FI6L7nWEn gL0 [file] Food And Beverage Assistant Manager/Jm+gE2Cs9lHv218M3k3sI+Gf7OuQ3TqdKZJWqD7vis4YLIn566/AeoCCRqoAskbnfbXLo8wljCJy [file] AwMDAwMDAxNyAwMDAwMCBuDQowMDAwMDAwMzUzIDAw EMTiQD8VOqNpRERaRIM0DgGbDTOxDHZnsn2VQCVzOGEgCOSqLFNpJZEeYXSuKQpuCYUxINO7TeYhZNBa VRAnUT8YCpAsVIFoJCN6RUiuRMNcZTIscz1RRGCmVPCgDjX8BlYhZMUdESBlIOwpWEAsZIMyTgIiOXXg ZEPuRR0VMeKyXDVsYEP3FurnWOJwJTThki1PXWKlHX IhKFAdIsXgZGGbMHZfZOtfKVAtYAXgFaR9OSZwXARpYM6FRgSiXXRhEPK7MnZiALGkIFFceh7JMSIkSB IvOPA7GuXjOFQcKNQpXGrqXXRwEHZtPeN1HPXlVVYnHM6BOkKhADXbOYN7UntrCPAtCNRxzi8PQFHeDV U6ChV8ULQsGGJsCPPpQRxrSNBaUBP5LxI2PLTkPOSz IG5ETnGjJEHmHXU4TPOdTHDaXLVqnh5YJVPkULRqCDQfVTAtEJRjZNVmXMuoWOUhGQF6CHz9OCOsWBCo SH5YJfCsABEjJUX2WXhxAENnHTVrqx9ATHImHEG0ViNtVGHjPRVfPPUjUIzeIXWlFKE9MehiNKTrULCy EN8JFgFjVRYvPHt0GuxbBCZfQKYzog6NQHUfTQD3RB D4SuZcJNYmWKFrQZztCTBrZHDhXJE6WALnKHIpTU0ANnLpXHJrKxM6VSMmKANkRYSfcn2JGXYbLOR2HI rdOfMpWUTeQCCtYZxkCSMtRVZjNZIwUSSsMSRsRY0RBqZrCHMgPLc6GIqzZAOjQKFytm0KuYAljMcvzk 3IQIjJEg3LkPyaRXOmDBisRp9qoBIhAFSgMn8AE5yu Ow7uXWOcYGTCKPh+Ra4FJQgxyVMxrWywRYFCVfEsPIJgFD9OCZMNX0ZJTc== ID Date Data Source [id number] 03/27/2021 06:42:18 PM EDT [facility] Name Value Range Interpretation Code Description Data Che rce(s) Supporting Document(s) SODIUM 144 mmol/L (136-145) [facility] POTASSIUM 4.3 mmol/L (3.6-5.2) [facility] CHLORIDE 112 mmol/L (100-108) H [facility] CO2 27 mmol/L (22-31) [facility] ANION GAP 5 mmol/L (7-16) L [facility] UREA NITROGEN 10 mg/dL (7-24) [facility] CREATININE 0.39 mg/dL (0.60-1.00) L [facility] BUN/CREAT RATIO 25.6 RATIO (10.0-20.0) H [facility] GLUCOSE 78 mg/dL (70-99) [facility] CALCIUM 8.3 mg/dL (8.4-10.2) L [facility] TOTAL PROTEIN 5.5 g/dL (6.4-8.2) L [facility] ALBUMIN 3.0 g/dL (3.2-4.5) L [facility] GLOBULIN 2.5 g/dL (2.7-4.3) L [facility] ALB/GLOB RATIO 1.2 RATIO [facility] ALKALINE PHOSPHATASE 78 U/L (45-117) [facility] BILIRUBIN,TOTAL 0.4 mg/dL (0.0-1.0) [facility] PLEASE NOTE:Total bilirubin results may be falselyelevated in patients taking Eltrombopag. AST (SGOT) 14 U/L (11-39) [facility] ALT (SGPT) 20 U/L (12-78) [facility] GFR >60 ml/min/1.73m2 (>59) [facility] GFR ( AMER) >60 ml/min/1.73m2 (>59) [facility] GFR INTERPRETATION [facility] --NORMAL KIDNEY FUNCTION OR MILD DISEASE - GFR >OR= 60CHRONIC KIDNEY DISEASE - GFR 15 - 59RENAL FAILURE - GFR <15 Est. GFR calculation based on the MDRDstudy equation, which assumes a steadystate for creatinine. Est. GFR should notbe used for medication dosing. ID Date Data Source [id number] 03/27/2021 05:59:41 PM EDT [facility] Name Value Range Interpretation Code Description Data Che rce(s) Supporting Document(s) WBC 6.1 10*3/uL (4.1-11.0) [facility] RBC 2.71 10*6/uL (4.00-5.40) L [facility] HGB 9.1 g/dL (12.0-16.0) L [facility] HCT 26.8 % (36.0-47.0) L [facility] MCV 98.9 fL (80.0-95.0) H [facility] MCH 33.7 pg (27.0-32.0) H [facility] MCHC 34.0 g/dL (32.0-36.0) [facility] RDW 14.8 % (10.5-14.5) H [facility] PLT 589 10*3/uL (150-450) H [facility] MPV 7.6 fL (7.1-10.7) [facility] ID Date Data Source [id number] 03/27/2021 01:48:27 PM EDT [facility] [place] NT INFORMATIONPatient MRN Name Date of Age Gend*PT [id number] Beatriz Castaneda 1945 76 years F IPPT Location Admission Date/Time Visit ID Attending [id number] 03/27/21 1104 --- Raleigh Collins MD([id number]) EPI ID CSN Admitting Provider [id number] Candy Barnes MD([id number]) Attestation signed by Raleigh Collins MD at 03/27/2021 1:48 PMI saw and evaluated the patient and reviewed RAYMON Dixon's note. 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 CTX reduced with C2 due toprolonged neutropenia with C1 and mucositis with dehydration that has delayedC2 by 1 week.Pain much improved but still a little difficulty swalllowing on the right, willget neck u/s.ADOD Saturday.Signature: Raleigh Collins MDDate: March 27, 2021Time: 1:45 PM --Inpatient History & PhysicalCarol Kai CastanedaMRN:[id number] and Plan:Principal Problem: Diffuse large B cell lymphomaMs. Castaneda is a patient of Dr. Barnes with a known diagnosis of double hitlarge B cell lymphoma. She was [facility] [place] [facility] pain control s/t nasopharyngeal mass andneed for urgent treatment with chemotherapy. She received inpatient R EPOCH at[facility] from 02/25 to 03/01/2021. Her treatment course was complicated withpancytopenia, mucositis and dehydration necessitating rehospitalization aftertreatment from 03/09 to 03/15/2021. She pr esents to the hospital today forelective admission for Cycle 2 DA-R EPOCH.1. 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- received C1 DA R EPOCH at [facility] 02/25/03/01/2021- mitchell neutropenia, ANC less than 500 on on 03/08, 03/10 and 03/11- rehospitalization after cycle 1 with mucositis and dehydration- Cycle 2 was delayed by one week to allow for recovery- plan per primary oncologist is not to dose escalate based on mitchell anddecrease dose of cytoxan from 750mg/m2 to 600mg/m2- will treat with Rituximab 375mg/m2 today (d1) followed by Etoposide 50mg/m2CIVI daily x4, doxorubicin 10mg/m2 CIVI daily x 4 and Vincristine 0.4mg/m2 CIVIdaily x 4 followed by Cytoxan 600mg/m2 on day 5 and Prednisone 60mg/m2 PO BIDdays 1-5- will receive Neulasta support on day 6- will monitor labs daily and for s/s of toxicities while she is admitted2. Pain- facial pain from tumor- resolved- continues on fentanyl 12mcg patch and Lyrica BID- no longer using breakthrough Dilaudid- may no longer need Duragesic, patch due to be changed today. Will keep oldpatch in place and allow drug to taper off in system and see it patient stillrequires narcotic pain medication.- continue L yrica at this time, may be able to taper off at later date3. Constipation- post chemotherapy constipation with Cycle 1- currently well managed with colace BID- aggressive bowel regimen available as needed, will monitor4. Mucositis- post chemotherapy complication with cycle 1- well healed at this time, will monitor, has BMX at home5. Medical Prophylaxis- continues on Allopurinol daily, low risk of TLS at this time, but willcontinue through at least cycle 2- continiues on Acyclovir, Bactrim DS for infectious prophylaxis6. Dysphagia- feeling of food getting stuck- no palpable node or mass- will obtain US soft tissue of neck to assessMs. Castaneda was seen and evaluated with Dr. Collins. Please see his supervisorynote for further details.Chief Complaint: Large B Cell Lymphoma, double hit, elective admission for cycle2 of DA R EPOCHHPI: Ms. Castaneda is a patient of Dr. Barnes with a known diagnosis of doublehit large B cell lymphoma. Her recent history dates back to November of this yearwhen she developed sinus pressure and hearing loss. She was unsuccessfullytreated with multiple course of antibiotics. Further work up at that time by herENT revealed a 6cm nasopharyngeal mass. Biopsy on 02/13/2021 revealed high gradelarge cell lymphoma, positive for deletion 17p, double hit rearrangement withMYC and BCL6.She was susequently admitted to [facility] after being transfered from [facility] in [place] for pain control s/t nasopharyngeal mass and need forurgent treatment with chemotherapy. She received inpatient R EPOCH at [facility] from02/25 to 03/01/2021. Her treatment course was complicated with pancytopenia,mucositis and dehydration necessitating rehospitalization after treatment from03/09 to 03/15/2021. Her treatment was delayed 1 week to allow her to recover fromher 1st cycle. She was seen at [facility] on 03/22/2021 and decision was made toadmit her for chanelle 2 of R EPOCH with a dose decrease to the Cytoxan due to nadirneutropenia less than 500.Overall, Ms. Castaneda feels well. She denies any fever, chills or sweats. Deniesany pain in over 10 days. She has not used any breakthrough medication. Shecontinues on Duragesic 12mcg and Lyrica. She states she is eating and drinking,does admit to the feeling of food getting stuck. Denies any coughing witheating. Denies any chest pain, shortness of breath or palpitations. Reports herbowels are moving, no diarrhea, continues on Colace. No urinary complaints. Noother new physical complaints today.Past Medical History:Past Medical History:Diagnosis Date Hypercholesterolemia HypertensionPast Surgical History:No past surgical history on file.Medications:Medications Prior to AdmissionMedication Sig Dispense Refill Last Dose acetaminophen (TYLENOL) 325 MG tablet Take 2 tablets (650 mg total) by mouthevery 4 (four) hours as needed (mild pain) 30 tablet 0 allopurinol (ZYLOPRIM) 300 MG tablet Take 1 tablet (300 mg total) by mouthdaily 30 tablet 1 aspirin 81 MG chewable tablet Chew 81 mg every morning docusate sodium (COLACE) 100 MG capsule Take 100 mg by mouth 2 (two) times aday as needed for constipation fentaNYL (DURAGESIC) 12 MCG/HR Place 1 patch on the skin every third day MaxDaily Amount: 1 patch 5 patch 0 HYDROmorphone (DILAUDID) 2 MG tablet Take 1 tablet (2 mg total) by mouth every4 (four) hours as needed (moderate to severe pain) Max Daily Amount: 12 mg 60tablet 0 lidocaine Viscous HCl (XYLOCAINE) 2 % solution Take 5 mL by mouth as [id number] mL 0 metoprolol tartrate (LOPRESSOR) 25 MG tablet Take 12.5 mg by mouth 2 (two)times a day mirtazapine (REMERON) 30 MG tablet Take 1 tablet (30 mg total) by mouthnightly 30 tablet 0 omega-3 acid ethyl esters (LOVAZA) 1 g capsule Take 2 g by mouth 2 (two) timesa day 2 capsules AM and 2 Capsules PM omeprazole (PriLOSEC) 20 MG capsule Take 20 mg by mouth 4 (four) times a weekOn Saturday, Saturday, Saturday and Saturday ondansetron (ZOFRAN-ODT) 4 MG disintegrating tablet Take 4 mg by mouth every 6(six) hours as needed for nausea pregabalin (LYRICA) 75 MG capsule Take 1 capsule (75 mg total) by mouth 2(two) times a day Max Daily Amount: 150 mg 60 capsule 11 prochlorperazine (COMPAZINE) 10 MG tablet Take 1 tablet (10 mg total) by mouthevery 6 (six) hours as needed 30 tablet 1 simvastatin (ZOCOR) 20 MG tablet Take 20 mg by mouth nightly vitamin D, Ergocalciferol, 1.25 MG (86780 UT) CAPS Take 1 capsule by mouthevery 30 (thirty) days I capsule 1st of the month PMAllergies:PenicillinsFamily History:Family HistoryProblem Relation Age of Onset Breast cancer Sister Pancreatic cancer BrotherSocial History:Social HistoryTobacco Use Smoking status: Never Smoker Smokeless tobacco: Never UsedSubstance Use Topics Alcohol use: Not Currently Drug use: NeverReview of Systems:All systems were reviewed and found negative except for those mentioned in theHPI.Physical Exam:Vital Signs: Temp: [97.7 F] 97.7 FHeart Rate: [85] 85Resp: [18] 18BP: (118)/(74) 118/74General appearance: Pleasant, comfortable, not in acute distress.Psych/ mental status: Alert, oriented, thought content appropriate.HEENT: Normocephalic, atraumatic, conjunctivae clear, EOM's intactThroat: lips, mucosa, and tongue normal; teeth and gums normal and no palpablemasses or lymph nodesLungs: Clear to auscultation bilaterally.Lungs: clear to auscultation bilaterally and respirations even and unlaboredCardiovascular: Heart regular rate and rhythm, S1, S2 normal, no murmur, click,rub or gallopAbdomen: Soft, nontender, bowel sounds present.Extremities: extremities normal, atraumatic, no cyanosis or edemaSkin: No rash or lumps.The remainder of the physical exam is noncontributory.Labs, Imaging and Other Diagnostics:Diagnostic tests reviewed:outside labs from [facility] on 03/22/2021 reviewed, awaiting CBC and CMP from todaySignature: Fidelia Dixon NPDate: March 27, 2021Time: 12:17 PM Name Value Range Interpretation Code Description Data Che rce(s) Supporting Document(s) ID Date Data Source [id number] 03/15/2021 03:41:17 PM EDT [facility] NT INFORMATIONPatient MRN Name Date of Age Gend*PT [id number] Beatriz Castaneda 1945 75 years F IPPT Location Admission Date/Time Visit ID Attending [id number] 03/09/21 0937 --- Haja Nunez MD([id number]) EPI ID CSN Admitting Provider [id number] DEEPIKA Castillo([id number]) [facility] DISCHARGE SUMMARYPatient Name: Beatriz Castaneda of : 1945 Age 75 yearsPrimary Physician: VLADISLAV OSORIO MD PCP [id number] Date: 03/09/2021 Discharge Date:She will be discharged from [facility] Diagnoses:Principal Problem: NeutropeniaActive Problems: Hypertension Hypercholesterolemia Diffuse large B cell lymphoma GERD (gastroesophageal reflux disease) Pancytopenia Abnormal CT scan, gastrointestinal tract Constipation Severe protein-calorie malnutritionResolved Problems: * No resolved hospital problems. *Discharge Medications:Current Discharge Medication ListSTART taking these medications Detailsacyclovir (ZOVIRAX) 400 MG tablet Take 1 tablet (400 mg total) by mouth 2 (two)times a day for 5 daysQty: 10 tablet, Refills: 3fentaNYL (DURAGESIC) 12 MCG/HR Place 1 patch on the skin every third day MaxDaily Amount: 1 patchQty: 5 patch, Refills: 0lidocaine Viscous HCl (XYLOCAINE) 2 % solution Take 5 mL by mouth as neededQty: 100 mL, Refills: 0mi rtazapine (REMERON) 30 MG tablet Take 1 tablet (30 mg total) by mouth nightlyQty: 30 tablet, Refills: 0nystatin (MYCOSTATIN) 405898 UNIT/ML suspension Take 5 mL (500,000 Units total)by mouth 4 (four) times a day for 5 daysQty: 60 mL, Refills: 0pregabalin (LYRICA) 75 MG capsule Take 1 capsule (75 mg total) by mouth 2 (two)times a day Max Daily Amount: 150 mgQty: 60 capsule, Refills: 11CONTINUE these medications which have CHANGED Detailsacetaminophen (TYLENOL) 325 MG tablet Take 2 tablets (650 mg total) by mouthevery 4 (four) hours as needed (mild pain)Qty: 30 tablet, Refills: 0CONTINUE these medications which have NOT CHANGED Detailsallopurinol (ZYLOPRIM) 300 MG tablet Take 1 tablet (300 mg total) by mouth dailyQty: 30 tablet, Refills: 1aspirin 81 MG chewable tablet Chew 81 mg every morningdocusate sodium (COLACE) 100 MG capsule Take 100 mg by mouth 2 (two) times a dayas needed for constipationHYDROmorphone (DILAUDID) 2 MG tablet Take 1 tablet (2 mg total) by mouth every 4(four) hours as needed (moderate to severe pain) Max Daily Amount: 12 mgQty: 60 tablet, Refills: 0metoprolol tartrate (LOPRESSOR) 25 MG tablet Take 12.5 mg by mouth 2 (two) timesa dayomega-3 acid ethyl esters (LOVAZA) 1 g capsule Take 2 g by mouth 2 (two) times aday 2 capsules AM and 2 Capsules PMomeprazole (PriLOSEC) 20 MG capsule Take 20 mg by mouth 4 (four) times a week OnSaturday, Saturday, Saturday and Saturdayondansetron (ZOFRAN-ODT) 4 MG disintegrating tablet Take 4 mg by mouth every 6(six) hours as needed for nauseasimvastatin (ZOCOR) 20 MG tablet Take 20 mg by mouth nightlyvitamin D, Ergocalciferol, 1.25 MG (43273 UT) CAPS Take 1 capsule by mouth every30 (thirty) days I capsule 1st of the month PMprochlorperazine (COMPAZINE) 10 MG tablet Take 1 tablet (10 mg total) by mouthevery 6 (six) hours as neededQty: 30 tablet, Refills: 1STOP taking these medications hydrochlorothiazide (HYDRODIURIL) 25 MG tablet sulfamethoxazole- trimethoprim (BACTRIM DS,SEPTRA DS) 800-160 MG per tabletFollow Up Instructions:The patient was given an after visit summary.Patient will follow up with Dr Vladislav Osorio in 7 days.Items needing special attention:Wheeled walker for ambulationMalnutrition CriteriaCode Type: Severe-Acute (E43)Severe-Acute Criteria: Moderate Muscle Mass Depletion, Energy Intake <50%/5daysMedical Food Supplements: Ensure Enlive/Ensure PlusBrief Hospital Course:Beatriz Castaneda is a 75-year-old female with past medical history of hypertension,hyperlipidemia, coronary artery disease status post CABG 2007, carotid arterydisease status post carotid endarterectomy, left breast cancer status postbilateral mastectomy in 1992, hypertension, obstructive sleepapnea patient was recently diagnosed with diffuse large B-cell lymphoma, wasrecently discharged from the hospital on 03/02 after receiving inpatient chemotreatment and Neulasta injection. [facility], back pain weakness, facial and mouth painwith nausea and vomiting. Left facial pain with mouth pain started yesterdayevening, and has become so unbearable, she has had difficulty with solid foodand only able to tolerate clear liquids, labs from referring hospital showedpancytopenia with severe neutropenia with WBC at 0.1, and also had hyponatremiawas initially at 126 and went up to 133.. Was given IV fluid and levofloxacin(after consulting with Dr. Barnes), Tenisha and transferred to [facility]. Patient was having severe pain in the left facial region likely dueto her large B-cell lymphoma originating in the nasopharyngeal region. Sheunderwent consultation with the palliative care service and her pain medicationswere attenuated such that she is having significant relief. She will return tohematology oncology for further assessment of her treatment in the followingweeks. She did demonstrate quite a bit of stomatitis and had a small ulcer atthe corner of her left mouth. This has significantly improved over her 6-daystay. She was having significant dehydration and constipation and herintravascular fluid volume was restored over the initial 72 hours withintravenous fluids and she was given a Gastrografin enema which producedsignificant results. She in fact had 4 bowel movements since yesterday. Shenow feels significantly decompressed. She has been able to eat to a smalldegree and is significantly improving. She will utilize nutritional supplementsto increase her overall caloric and protein intake. At this time she feelsbetter than she has in months and is ambulating independently. Her pain is wellcontrolled. is at the bedside and the patient wishes to be dischargedhome. Is asked to follow-up with her primary care physician in the next 7 daysand follow-up with [facility] within the next 2 weeks. Discharge Exam:Blood Pressure: BP: 115/72 Pulse: Heart Rate: 89Temperature: Temp: 97.4 F Respirations: Resp: 18Admission Weight: Weight: 58.5 kg (129 lb) O2 Satu ration: SpO2: 98 %Discharge Weight: Weight: 58.5 kg (129 lb) BMI: Body mass index is 22.14 kg/m .Physical Exam General well developed, cooperative, smiling, cachectic, pleasant, in noapparent distress HEENT PERRLA, EOMI, fundi benign Lungs clear to auscultation Heart regular rate and rhythm and without murmur Abdomen soft, non-tender, non-distended, no organomegaly or masses Musculoskeletal Spine ROM normal. Muscular strength intact. Neuro mental status, speech normal, alert and oriented x3, ASHLI, cranialnerves 2-12 intact and reflexes normal and symmetricOther Pertinent Findings: Left lower lip ulcer, in the process of healingDiagnostics:Imaging:Chest x-rayCT abdomen and pelvisCT facial bonesEchocardiogramProcedures:Interventional radiology guided port insertionBone marrow biopsyConsultants:Dr. Marco Raymundo of palliative careDr. Jacqueline Valentin of general surgeryDrs. Marcin Urrutia Bingham, Panebianco of hematology oncologyRecent Labs:BMP:Lab ResultsComponent Value Date NA 138 03/15/2021 K 3.6 03/15/2021 CL 107 03/15/2021 CO2 25 03/15/2021 ANIONGAP 6 (L) 03/15/2021 CALCIUM 7.3 (L) 03/15/2021 GLU 62 (L) 03/15/2021 BUN 11 03/15/2021 CREATININE 0.24 (L) 03/15/2021 GFRAA >60 03/15/2021 GFRNONAA >60 03/15/2021ardiac: No results found for: TROPONINI, POCTROP, PROBNPCBC Brief:Lab ResultsComponent Value Date WBC 17.6 (H) 03/15/2021 HGB 8.4 (L) 03/15/2021 HCT 24.2 (L) 03/15/2021 PLT 137 (L) 03/15/2021Haja Nunez MD3:25 PMTotal time spent for discharge on date of discharge: 39 minutes Name Value Range Interpretation Code Description Data Che rce(s) Supporting Document(s) ID Date Data Source [id number] 03/15/2021 09:33:39 AM EDT [facility] Name Value Range Interpretation Code Description Data Che rce(s) Supporting Document(s) POC NOVA GLU 85 mg/dL (70-99) [facility] [place] PERFORMED BY [facility] ID Date Data Source [id number] 03/15/2021 09:14:39 AM EDT [facility] Name Value Range Interpretation Code Description Data Che rce(s) Supporting Document(s) WBC 17.6 10*3/uL (4.1-11.0) H [facility] RBC 2.64 10*6/uL (4.00-5.40) L [facility] HGB 8.4 g/dL (12.0-16.0) L [facility] HCT 24.2 % (36.0-47.0) L [facility] MCV 91.7 fL (80.0-95.0) [facility] MCH 31.8 pg (27.0-32.0) [facility] MCHC 34.6 g/dL (32.0-36.0) [facility] RDW 12.5 % (10.5-14.5) [facility] PLT 137 10*3/uL (150-450) L [facility] MPV 8.4 fL (7.1-10.7) [facility] NEUT % 68.0 % (35.0-75.0) [facility] BAND % 14.0 % (0.0-11.0) H [facility] LYMPH % 9.0 % (16.0-52.0) L [facility] MONO % 1.0 % (0.0-8.0) [facility] EOS % 1.0 % (0.0-5.0) [facility] META % 5.0 % (0.0) H [facility] MYELO % 2.0 % (0.0) H [facility] NEUT # 12.0 10*3/uL (1.8-7.7) H [facility] [place] BAND # 2.5 10*3/uL [facility] LYMPH # 1.6 10*3/uL (1.2-4.8) [facility] MONO # 0.2 10*3/uL (0.0-0.8) [facility] Eosinophils [#/volume] in Blood by Automated count 0.2 10*3/uL (0.0-0 .5) [facility] META # 0.9 10*3/uL (0.0) H [facility] MYELO # 0.4 10*3/uL (0.0) H [facility] TOXIC 1+ [facility] DOHLE BODIES 1+ [facility] [place] POLY 1+ [facility] ID Date Data Source [id number] 03/15/2021 08:02:17 AM EDT [facility] Name Value Range Interpretation Code Description Data Che rce(s) Supporting Document(s) SODIUM 138 mmol/L (136-145) [facility] POTASSIUM 3.6 mmol/L (3.6-5.2) [facility] CHLORIDE 107 mmol/L (100-108) [facility] CO2 25 mmol/L (22-31) [facility] ANION GAP 6 mmol/L (7-16) L [facility] UREA NITROGEN 11 mg/dL (7-24) [facility] CREATININE 0.24 mg/dL (0.60-1.00) L [facility] BUN/CREAT RATIO 45.8 RATIO (10.0-20.0) H [facility] GLUCOSE 62 mg/dL (70-99) L [facility] CALCIUM 7.3 mg/dL (8.4-10.2) L [facility] GFR >60 ml/min/1.73m2 (>59) [facility] GFR ( AMER) >60 ml/min/1.73m2 (>59) [facility] GFR INTERPRETATION [facility] --NORMAL KIDNEY FUNCTION OR MILD DISEASE - GFR >OR= 60CHRONIC KIDNEY DISEASE - GFR 15 - 59RENAL FAILURE - GFR <15 Est. GFR calculation based on the MDRDstudy equation, which assumes a steadystate for creatinine. Est. GFR should notbe used for medication dosing. ID Date Data Source [id number] 03/14/2021 07:28:03 AM EDT [facility] Name Value Range Interpretation Code Description Data Che rce(s) Supporting Document(s) WBC 14.1 10*3/uL (4.1-11.0) H [facility] RBC 2.69 10*6/uL (4.00-5.40) L [facility] HGB 8.8 g/dL (12.0-16.0) L [facility] HCT 24.9 % (36.0-47.0) L [facility] MCV 92.7 fL (80.0-95.0) [facility] MCH 32.6 pg (27.0-32.0) H [facility] MCHC 35.2 g/dL (32.0-36.0) [facility] RDW 12.7 % (10.5-14.5) [facility] PLT 108 10*3/uL (150-450) L [facility] MPV 8.2 fL (7.1-10.7) [facility] NEUT % 72.0 % (35.0-75.0) [facility] BAND % 16.0 % (0.0-11.0) H [facility] LYMPH % 1.0 % (16.0-52.0) L [facility] MONO % 5.0 % (0.0-8.0) [facility] EOS % 1.0 % (0.0-5.0) [facility] META % 4.0 % (0.0) H [facility] MYELO % 1.0 % (0.0) H [facility] NEUT # 10.2 10*3/uL (1.8-7.7) H [facility] [place] BAND # 2.3 10*3/uL [facility] LYMPH # 0.1 10*3/uL (1.2-4.8) L [facility] MONO # 0.7 10*3/uL (0.0-0.8) [facility] Eosinophils [#/volume] in Blood by Automated count 0.1 10*3/uL (0.0-0 .5) [facility] META # 0.6 10*3/uL (0.0) H [facility] MYELO # 0.1 10*3/uL (0.0) H [facility] TOXIC 2+ [facility] DOHLE BODIES 1+ [facility] [place] ID Date Data Source [id number] 03/14/2021 06:56:58 AM EDT [facility] Name Value Range Interpretation Code Description Data Che rce(s) Supporting Document(s) MAGNESIUM 2.2 mg/dL (1.7-2.4) [facility] ID Date Data Source [id number] 03/14/2021 06:56:58 AM EDT [facility] Name Value Range Interpretation Code Description Data Che rce(s) Supporting Document(s) SODIUM 141 mmol/L (136-145) [facility] POTASSIUM 3.2 mmol/L (3.6-5.2) L [facility] CHLORIDE 109 mmol/L (100-108) H [facility] CO2 26 mmol/L (22-31) [facility] ANION GAP 6 mmol/L (7-16) L [facility] UREA NITROGEN 22 mg/dL (7-24) [facility] CREATININE 0.35 mg/dL (0.60-1.00) L [facility] BUN/CREAT RATIO 62.9 RATIO (10.0-20.0) H [facility] GLUCOSE 83 mg/dL (70-99) [facility] CALCIUM 7.3 mg/dL (8.4-10.2) L [facility] GFR >60 ml/min/1.73m2 (>59) [facility] GFR ( AMER) >60 ml/min/1.73m2 (>59) [facility] GFR INTERPRETATION [facility] --NORMAL KIDNEY FUNCTION OR MILD DISEASE - GFR >OR= 60CHRONIC KIDNEY DISEASE - GFR 15 - 59RENAL FAILURE - GFR <15 Est. GFR calculation based on the MDRDstudy equation, which assumes a steadystate for creatinine. Est. GFR should notbe used for medication dosing. ID Date Data Source [id number] 03/13/2021 10:07:13 PM EDT [facility] Name Value Range Interpretation Code Description Data Che rce(s) Supporting Document(s) WBC 5.7 10*3/uL (4.1-11.0) [facility] [place] ADJUSTED FOR NUCLEATED RBC'SCorrected on 03/13 AT 0926: Previously reported as 5.8 RBC 2.85 10*6/uL (4.00-5.40) L [facility] HGB 9.1 g/dL (12.0-16.0) L [facility] HCT 26.3 % (36.0-47.0) L [facility] MCV 92.2 fL (80.0-95.0) [facility] MCH 32.0 pg (27.0-32.0) [facility] MCHC 34.7 g/dL (32.0-36.0) [facility] RDW 12.5 % (10.5-14.5) [facility] PLT 74 10*3/uL (150-450) L [facility] MPV 8.5 fL (7.1-10.7) [facility] NEUT % 68.0 % (35.0-75.0) [facility] BAND % 13.0 % (0.0-11.0) H [facility] LYMPH % 5.0 % (16.0-52.0) L [facility] MONO % 10.0 % (0.0-8.0) H [facility] META % 2.0 % (0.0) H [facility] MYELO % 1.0 % (0.0) H [facility] BLAST % 1.0 % (0.0) H [facility] NRBC 2.0 /100 WBC (0.0) H [facility] [place] NEUT # 3.9 10*3/uL (1.8-7.7) [facility] BAND # 0.7 10*3/uL [facility] LYMPH # 0.3 10*3/uL (1.2-4.8) L [facility] MONO # 0.6 10*3/uL (0.0-0.8) [facility] META # 0.1 10*3/uL (0.0) H [facility] MYELO # 0.1 10*3/uL (0.0) H [facility] 2+ DOHLE BODIES 2+ [facility] [place] DIFF COMMENT [facility] ANTHONY NORMOCYTIC NORMOCHROMIC ANEMIA. THROMBOC YTOPENIA. LEUKOERYTHROBLASTOSIS. I. TOLOCICA 03/13/21PERFORMED AT [address] [place] [address] ID Date Data Source [id number] 03/13/2021 09:09:46 PM EDT [facility] [place] Name Value Range Interpretation Code Description Data Che rce(s) Supporting Document(s) IRON,TOTAL @ 108 ug/dL (35-150) [facility] [place] UIBC @ 0 ug/dL (130-375) L [facility] TIBC @ 108 ug/dL (250-450) L [facility] [place] % SATURATION 100 % (12-50) H [facility] [place] ID Date Data Source [id number] 03/13/2021 09:09:46 PM EDT [facility] Name Value Range Interpretation Code Description Data Che rce(s) Supporting Document(s) FOLATE @ 10.0 ng/mL (3.1-17.5) [facility] ID Date Data Source [id number] 03/13/2021 09:09:46 PM EDT [facility] Name Value Range Interpretation Code Description Data Che rce(s) Supporting Document(s) FERRITIN @ 1410 ng/mL (8-252) H [facility] ID Date Data Source [id number] 03/13/2021 09:09:46 PM EDT [facility] Name Value Range Interpretation Code Description Data Che rce(s) Supporting Document(s) VITAMIN B12 @ 567 pg/mL (193-986) [facility] ID Date Data Source [id number] 03/13/2021 07:43:25 AM EDT [facility] Name Value Range Interpretation Code Description Data Che rce(s) Supporting Document(s) SODIUM 142 mmol/L (136-145) [facility] POTASSIUM 3.6 mmol/L (3.6-5.2) [facility] CHLORIDE 109 mmol/L (100-108) H [facility] CO2 24 mmol/L (22-31) [facility] ANION GAP 9 mmol/L (7-16) [facility] UREA NITROGEN 15 mg/dL (7-24) [facility] CREATININE 0.29 mg/dL (0.60-1.00) L [facility] BUN/CREAT RATIO 51.7 RATIO (10.0-20.0) H [facility] GLUCOSE 97 mg/dL (70-99) [facility] CALCIUM 7.3 mg/dL (8.4-10.2) L [facility] GFR >60 ml/min/1.73m2 (>59) [facility] GFR ( AMER) >60 ml/min/1.73m2 (>59) [facility] GFR INTERPRETATION [facility] --NORMAL KIDNEY FUNCTION OR MILD DISEASE - GFR >OR= 60CHRONIC KIDNEY DISEASE - GFR 15 - 59RENAL FAILURE - GFR <15 Est. GFR calculation based on the MDRDstudy equation, which assumes a steadystate for creatinine. Est. GFR should notbe used for medication dosing. ID Date Data Source [id number] 03/12/2021 10:08:36 AM EDT [address] [place], [place] [address]Hwmgqdi Name: BEATRIZ Quinn WORKMANDOB: 1945Sex: FOrdering Provider: ISIAH Pina Prov: ISIAH Ch Provider: Procedure Performed: XR GASTRO ENEMA THERAPEUTICExam Date: 03/12/2021 09:56MRN: [id number] Number: [id number] Class: InpatientAccount #: [id number] for Exam: constipationTechnique: Fluoroscopy with no digital spot images obtained.Fluoroscopy time: 192 SecondsNumber of Spot Images: 0Comparison: NoneFindings: Occasional colonic diverticula are seen. Gallstones are noted in the gallbladder. There is a moderate amount of stool predominantly in the right and transverse colon. Post sternotomy status noted. Loss of height is seen in mid lumbar vertebral bodies.IMPRESSION: Gastrografin enema performed for catharsisReport electronically signed by: KAVEH MORSE On 03/12/2021 10:08 AMWorkstation ID: [id number] Name Value Range Interpretation Code Description Data Che rce(s) Supporting Document(s) ID Date Data Source [id number] 03/13/2021 07:26:13 AM EDT [facility] Name Value Range Interpretation Code Description Data Che rce(s) Supporting Document(s) WBC 1.1 10*3/uL (4.1-11.0) L [facility] [place] ADJUSTED FOR NUCLEATED RBC'SCorrected on 03/12 AT 0912: Previously reported as 1.1 ALERTED CRITICAL RESULT TO NARC[place] ([id number]) [place] [id number] ON 03.12.21 AT 08:29 [place] [id number] RBC 2.68 10*6/uL (4.00-5.40) L [facility] HGB 8.6 g/dL (12.0-16.0) L [facility] HCT 24.8 % (36.0-47.0) L [facility] MCV 92.3 fL (80.0-95.0) [facility] MCH 31.9 pg (27.0-32.0) [facility] MCHC 34.6 g/dL (32.0-36.0) [facility] RDW 12.1 % (10.5-14.5) [facility] PLT 67 10*3/uL (150-450) L [facility] MPV 8.9 fL (7.1-10.7) [facility] NEUT % 58.0 % (35.0-75.0) [facility] BAND % 8.0 % (0.0-11.0) [facility] LYMPH % 20.0 % (16.0-52.0) [facility] MONO % 8.0 % (0.0-8.0) [facility] META % 4.0 % (0.0) H [facility] MYELO % 2.0 % (0.0) H [facility] NRBC 2.0 /100 WBC (0.0) H [facility] [place] NEUT # 0.6 10*3/uL (1.8-7.7) L [facility] BAND # 0.1 10*3/uL [facility] LYMPH # 0.2 10*3/uL (1.2-4.8) L [facility] MONO # 0.1 10*3/uL (0.0-0.8) [facility] META # 0.0 10*3/uL (0.0) [facility] MYELO # 0.0 10*3/uL (0.0) [facility] TOTAL CELLS COUNTED 50 [facility] RBC FRAGMENTS 1+ [facility] DIFF COMMENT [facility] [place] DIFF COMMENT [facility] [place] SUPERVISORY REVIEW: DIFFERENTIAL CELL CO UNT CONFIRMED.[id number] ID Date Data Source [id number] 03/12/2021 07:15:51 AM EDT [facility] Name Value Range Interpretation Code Description Data Che rce(s) Supporting Document(s) SODIUM 139 mmol/L (136-145) [facility] POTASSIUM 3.3 mmol/L (3.6-5.2) L [facility] CHLORIDE 107 mmol/L (100-108) [facility] CO2 26 mmol/L (22-31) [facility] ANION GAP 6 mmol/L (7-16) L [facility] UREA NITROGEN 15 mg/dL (7-24) [facility] CREATININE 0.25 mg/dL (0.60-1.00) L [facility] BUN/CREAT RATIO 60.0 RATIO (10.0-20.0) H [facility] GLUCOSE 117 mg/dL (70-99) H [facility] CALCIUM 7.1 mg/dL (8.4-10.2) L [facility] GFR >60 ml/min/1.73m2 (>59) [facility] >60 ml/min/1.73m2 (>59) [facility] GFR INTERPRETATION [facility] --NORMAL KIDNEY FUNCTION OR MILD DISEASE - GFR >OR= 60CHRONIC KIDNEY DISEASE - GFR 15 - 59RENAL FAILURE - GFR <15 Est. GFR calculation based on the MDRDstudy equation, which assumes a steadystate for creatinine. Est. GFR should notbe used for medication dosing. ID Date Data Source [id number] 03/11/2021 11:41:44 AM EDT [facility] [place] Name Value Range Interpretation Code Description Data Che rce(s) Supporting Document(s) WBC 0.2 10*3/uL (4.1-11.0) L [facility] [place] [facility] ([id number]) [place] [address] ON 03.11.21 AT 11:[place] [id number] RBC 2.50 10*6/uL (4.00-5.40) L [facility] HGB 8.2 g/dL (12.0-16.0) L [facility] HCT 23.1 % (36.0-47.0) L [facility] MCV 92.3 fL (80.0-95.0) [facility] MCH 32.6 pg (27.0-32.0) H [facility] MCHC 35.4 g/dL (32.0-36.0) [facility] RDW 12.1 % (10.5-14.5) [facility] PLT 39 10*3/uL (150-450) L [facility] MPV 9.0 fL (7.1-10.7) [facility] NEUT % 70.0 % (35.0-75.0) [facility] LYMPH % 25.0 % (16.0-52.0) [facility] MONO % 5.0 % (0.0-8.0) [facility] NEUT # 0.1 10*3/uL (1.8-7.7) L [facility] LYMPH # 0.1 10*3/uL (1.2-4.8) L [facility] MONO # 0.0 10*3/uL (0.0-0.8) [facility] TOTAL CELLS COUNTED 20 [facility] ID Date Data Source [id number] 03/11/2021 07:54:40 AM EDT [facility] Name Value Range Interpretation Code Description Data Che rce(s) Supporting Document(s) SODIUM 139 mmol/L (136-145) [facility] POTASSIUM 3.6 mmol/L (3.6-5.2) [facility] CHLORIDE 107 mmol/L (100-108) [facility] CO2 25 mmol/L (22-31) [facility] ANION GAP 7 mmol/L (7-16) [facility] UREA NITROGEN 9 mg/dL (7-24) [facility] CREATININE 0.25 mg/dL (0.60-1.00) L [facility] BUN/CREAT RATIO 36.0 RATIO (10.0-20.0) H [facility] GLUCOSE 116 mg/dL (70-99) H [facility] CALCIUM 7.7 mg/dL (8.4-10.2) L [facility] GFR >60 ml/min/1.73m2 (>59) [facility] GFR ( AMER) >60 ml/min/1.73m2 (>59) [facility] GFR INTERPRETATION Lab [facility] --NORMAL KIDNEY FUNCTION OR MILD DISEASE - GFR >OR= 60CHRONIC KIDNEY DISEASE - GFR 15 - 59RENAL FAILURE - GFR <15 Est. GFR calculation based on the MDRDstudy equation, which assumes a steadystate for creatinine. Est. GFR should notbe used for medication dosing. ID Date Data Source [id number] 03/10/2021 02:23:48 PM EDT [facility] INFORMATIONPatient MRN Name Date of Age Gend*PT [id number] RisasterlingBeatriz 1945 75 years F IPPT Location Admission Date/Time Visit ID Attending [id number] 03/09/21 0937 --- Isiah Clark MD([id number]) EPI ID CSN Admitting Provider [id number] DEEPIKA Castillo([id number])Beatriz Kai [id number]/Reason for Consult:Evaluate for possible appendicitisAssessment/Plan:75-year-old female with neutropenia. Clinically the patient does not have acuteappendicitis given that she is not specifically complaining of right lowerquadrant pain and she is completely nontender in her right lower quadrant. Thepatient does not require surgical intervention. Once her nausea and vomitingsubsides and she begins to have bowel function she may begin p.o. intake. Thepatient appears to have significant amount of stool within her colon thus sheneeds to be on an aggressive bowel regimen. My suspicion that she has a colonicmass is low, however, if she does not begin to have bowel function, then I wouldconsider a Gastrografin enema which can be both therapeutic as well asdiagnostic. I would also have her evaluated by gastroenterology. If she isunable to take adequate calories orally, then consideration should be given to aPEG tube for nutritional support.HPI/Subjective:75-year-old female who was admitted with neutropenia, left facial and oral painand difficulty swallowing due to the pain was admitted with abdominal pain andnausea. The patient also reports associated muscle aches, back pain andweakness. The patient has been constipated as she has not had a bowel movementin about a week. Currently the patient is complaining of mild abdominal painacross her upper abdomen that she describes as a burning. She does reportpersistent nausea. She is reporting pain with swallowing. Work- up thus far isas detailed below.CT-scan of abdomen and pelvisImpression: Retrocecal appendix with Mild appendiceal dilatation. No fatstranding however there may be mild thickening of the fascia posterior to theappendix. Acute appendicitis cannot be excluded. Clinical correlation issuggested. Age-indeterminate L1 compression fracture. Cholelithiasis. Diffuse hepatic fatty infiltration and hepatomegaly. Constipation. There is a transition zone of dilatation between the drain wascolon and splenic flexure without mass demonstrated. This is probably afunctional transition zone rather than a mass. Because this is not certainsuggest endoscopy or barium enema at the appropriate clinical time.CBC with Diff:Lab ResultsComponent Value Date WBC 0.1 (LL) 03/10/2021 RBC 2.44 (L) 03/10/2021 HGB 7.8 (L) 03/10/2021 HCT 22.6 (L) 03/10/2021 MCV 92.6 03/10/2021 MCH 31.9 03/10/2021 MCHC 34.5 03/10/2021 RDW 12.1 03/10/2021 PLT 26 (L) 03/10/2021 MPV 9.1 03/10/2021 LYMPHOPCT 80.0 (H) 03/10/2021 MONOPCT 10.0 (H) 03/10/2021 EOSPCT 0.1 03/02/2021 BASOPCT 0.2 03/02/2021 NEUTROABS 0.0 (L) 03/10/2021 MONOABS 0.0 03/10/2021 BASOSABS 0.0 03/02/2021MP:Lab ResultsComponent Value Date NA 135 (L) 03/10/2021 K 3.5 (L) 03/10/2021 CL 101 03/10/2021 CO2 26 03/10/2021 ANIONGAP 8 03/10/2021 BUN 7 03/10/2021 CREATININE 0.18 (L) 03/10/2021 BCR 38.9 (H) 03/10/2021 GLU 92 03/10/2021 CALCIUM 7.5 (L) 03/10/2021 ALBUMIN 2.4 (L) 03/09/2021 GLOB 2.8 03/09/2021 AGRC 0.9 03/09/2021 ALKPHOS 62 03/09/2021 LABBILI 1.1 (H) 03/09/2021 AST 8 (L) 03/09/2021 ALT 17 03/09/2021 GFRAA >60 03/10/2021 GFRNONAA >60 03/10/2021actate:Lab ResultsComponent Value Date LACTATE 1.2 03/09/2021P 128/75 | Pulse 72 | Temp 97.2 F (Oral) | Resp 15 | SpO2 100%Physical ExamConstitutional: General: She is not in acute distress. Appearance: She is well-developed and well-nourished. She is ill-appearingand sickly-appearing. She is not toxic-appearing or diaphoretic. Comments: The patient appears chronically ill and sick and quite frail.Pulmonary: Effort: Pulmonary effort is normal. No accessory muscle usage or respiratorydistress.Abdominal: General: There is no distension. Palpations: Abdomen is soft. There is no mass. Tenderness: There is abdominal tenderness (mild) in the epigastric area.There is no guarding. Hernia: No hernia is present. Comments: RLQ is NT with palpation.Skin: General: Skin is warm and dry. Coloration: Skin is not pale. Comments: No jaundice. No masses.Neurological: Mental Status: She is alert and oriented to person, place, and time.Psychiatric: Attention and Perception: Attention normal. Mood and Affect: Mood and affect and mood normal. Affect is flat. Speech: Speech normal. Behavior: Behavior normal. Behavior is cooperative. Comments: Speaking in a low, soft voice.Review of SystemsConstitutional: Positive for chills and fatigue.HENT: Positive for ear discharge, sinus pressure, sore throat, troubleswallowing and voice change.Eyes: Negative.Respiratory: Negative.Cardiovascular: Negative.Gastrointestinal: Positive for abdominal pain, constipation, nausea andvomiting.Endocrine: Negative.Genitourinary: Negative.Musculoskeletal: Positive for back pain and myalgias.Skin: Negative.Allergic/Immunologic: Negative.Neurological: Positive for weakness, light-headedness and headaches.Hematological: Negative.Psychiatric/Behavioral: Negative.No past surgical history on file.Patient Active Problem List Diagnosis Date Noted GERD (gastroesophageal reflux disease) 03/09/2021 Neutropenia 03/09/2021 Pancytopenia 03/09/2021 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 Authorizing Provideracetaminophen (TYLENOL) 325 MG tablet Take 2 tablets (650 mg total) by mouthevery 4 (four) hours as needed (mild pain) 03/02/21 Sumit Garciallopurinol (ZYLOPRIM) 300 MG tablet Take 1 tablet (300 mg total) by mouth daily03/02/21 Sumit Garciaspirin 81 MG chewable tablet Chew 81 mg every morning Historical Provider,hydrochlorothiazide (HYDR ODIURIL) 25 MG tablet Take 25 mg by mouth every morningHistorical Provider, DEIDREmorphone (DILAUDID) 2 MG tablet Take 1 tablet (2 mg total) by mouth every 4(four) hours as needed (moderate to severe pain) Max Daily Amount: 12 mg 03/02/21Abril Eastman PAmetoprolol tartrate (LOPRESSOR) 25 MG tablet Take 12.5 mg by mouth 2 (two) timesa day 1/2 tab BID Historical Provider, Theodorega-3 acid ethyl esters (LOVAZA) 1 g capsule Take 2 g by mouth 2 (two) times aday 2 capsules AM and 2 Capsules PM Historical ProviderRiteshansetron (ZOFRAN-ODT) 4 MG disintegrating tablet Take 4 mg by mouth every 6(six) hours as needed for nausea Historical Provider, Amadnarochlorperazine (COMPAZINE) 10 MG tablet Take 1 tablet (10 mg total) by mouthevery 6 (six) hours as needed 03/01/21 Abril Niver, PAsimvastatin (ZOCOR) 20 MG tablet Take 20 mg by mouth nightly HistoricalProviderJuanulfamethoxazole-trimethoprim (BACTRIM DS,SEPTRA DS) 800- 160 MG per tablet Take1 tab by mouth twice daily every Saturday, Saturday, Saturday03/01/21 Seb PAvitamin D, Ergocalciferol, 1.25 MG (31597 UT) CAPS Take 1 capsule by mouth every30 (thirty) days I capsule of the month PM Historical Provider, allopurinol 300 mg Oral Daily dexamethasone 4 mg Intravenous Q6H levofloxacin 500 mg Intravenous Q24H metoprolol tartrate 12.5 mg Oral BID normal saline flush 10 mL Intravenous Q8H GERRY normal saline flush 3 mL Intravenous Q8H GERRY nystatin 500,000 Units Oral 4x Daily pantoprazole 40 mg Oral Daily pregabalin 50 mg Oral BID simvastatin 20 mg Oral Nightlyacetaminophen, BMX solution, guaifenesin- codeine, HYDROmorphone, MorphineSulfate (PF), ondansetronAllergiesAllergen Reactions Penicillins RashSocial HistorySocioeconomic History Marital status: Spouse name: Not on file Number of children: Not on file Years of education: Not on file Highest education level: Not on fileOccupational History Not on fileTobacco Use Smoking status: Never Smoker Smokeless tobacco: Never UsedSubstance and Sexual Activity Alcohol use: Not Currently Drug use: Never Sexual activity: Not on fileOther Topics Concern Not on fileSocial History Narrative Not on fileSocial Determinants of HealthFinancial Resource Strain: Difficulty of Paying Living Expenses:Food Insecurity: Worried About Running Out of Food in the Last Year: Ran Out of Food in the Last Year:Transportation Needs: Lack of Transportation (Medical): Lack of Transportation (Non-Medical):Physical Activity: Days of Exercise per Week: Minutes of Exercise per Session:Stress: Feeling of Stress :Social Connections: Frequency of Communication with Friends and Family: Frequency of Social Gatherings with Friends and Family: Attends Spiritism Services: Active Member of Clubs or Organizations: Attends Club or Organization Meetings: Marital Status:Intimate Partner Violence: Fear of Current or Ex-Partner: Emotionally Abused: Physically Abused: Sexually Abused:Family HistoryProblem Relation Age of Onset Breast cancer Sister Pancreatic cancer BrotherSignature: Jacqueline Valentin, MDDate: March 10, 2021Time: 2:12 PM Name Value Range Interpretation Code Description Data Che rce(s) Supporting Document(s) ID Date Data Source [id number] 03/10/2021 01:50:40 PM EDT [facility] Name Value Range Interpretation Code Description Data Che rce(s) Supporting Document(s) *No Show Note PANTERA v1 [facility] WQQEMb1bOtYSCfQhp7ieSOfuZOOcz9PzGKh3HI8MX7A4hJCmF0SjmMBzg1aHEy0EKGxgZFK9n2H5TN6J 5cG [file] 3L1v5L1ERvMwQD2FOyEtyp+t66Ly1Acz+Online Merchandiser+yvel+H eNxA5pE47+E4b2Kv5To2U8I/kmRvfAQXuEbdNR7AAMr6uP4JBfET9R/lVrONukZI0v98MBGqAbuvssT2 mTJMQLIjq6ZJNbTd7bcCZeGdoFap7J3N5h/r3Z5K2W/Q/RhdioCBHMu7IV7Y7MVAF5fljwnqp/G3nusv 1NITG6HJujOlbXL3Etlf4Psu0sTf8eNsxg1Rgxz17Q AadIaKCdOtpiAM3I06gP+fkPomii9Ya3JCrHnO8n+S5L1z8mDW1iFwZ7iheuQ0ErueS/8bBNcNu3A5EG 6UHlk/YydQ39Fwg8e9muyQkdQ+ZCESDEB7BZgq9H/n/RZnkA+yA1ZQuD24ol0bwBbz5rBm+/lxfRQrdC v5JieEFxB4PaExSXxYjaL272+RxqgT4oRHzps+R7It OyPwiP2kOO41GiA7ovQ/kX4BqTEcuzVOfWg4BYnz+k/qr0tyZkmlY+c5pOTg0kEtodwNljZcckbByCHn zCNzCS5Zmk+iv+xJY4YrYN+GUKZNl2CaFKCPZ1sUZOEaXFTHG0hwASNlq1JSUy5CaT1M9t599h3q/Sxo I0vidJjvy2fZTBIBHKupKjWH9T7j19q1TO/69fTclv sLfls6JomM06DZgeBOIobWrC+A4CUvRG6Ni9d8DhE35a+d1fwLt7gXrcKo9SdY2FZE+HvPCby0XCv5JP e1ANk1YNi1UEt6HNq2ZFe7FUq9FNz2RJy7MIi2GYu1OUb1CZg4EJm5OFs9ANv6YNk9XFe1KBe4RMydkU BlZlJJplKC4NHgWtrGi+1/UWNiT8QAJHiJCL8nX/YQ 1UIib1icvceeo3Xbhy8/ojefKrNAQgxFYHCSCTIb+zZCYBCls1eYXZtluBAzpZPNP5lQL+5rlw/6h8iu 4p2uD2qgmGc99bxQadjJgntP8ichIQ886XS6PyrOurHaCOfkyjM1+Corey+ACcKFCp+gDkAayfFI+Zq3WkM [file] EoolBEhSIKRRSKKBRRoYhCEYUiKhQGFAYUBhSGUBhQ HPINCRnDIKWbCWNGJYbUSVLhEBRKRBQjIGMRgoOGlXXQMCOZXh9ZMYutSa6zlJj2CGAizBBSnhQu8KVY O3ITCb7OZcMaGjKYylvOHhv72tgRHGwLYDYCeNYFY4KsJyYSJKEXITnOIUAZQEkr5uYyfUJDhHxQOf6A kNXWUmAMaHbp16OlRxb2KQBWM+8VjcHQbfrATtAPuH OD3gHzp3BuY3ri9i8ytXmKCNpgRPiZdVLbFFApdGXImmQTtGTKlzPSCWhNXVZZYxQVObsXUNdxUYnJRr er3yN34hs+IjbBDwrMrTb2D9SD8gBxtmgIWYG/RWRHFsYIlh0Zf1UtAZ0EvgtMaCmN3V2E0BIiWKaiPW xH8bA0zgQpGTUWxJnWMcUV3SDLAo7PEqTkvmNGrnPt EMRyOT7Qynr7gxJDRrH41Htuen47hI3bZHlzVLEYCc+L8X0yqcLuAXHyAuLkEc9g8xOQRlMqykYltk/V y5qZj4hyG3ANCCU0YWHDmHYyBACDeXs3ZwUwemhnOfa8Y5PhVTxGW5LcA5fauFxeR1hHQaDMbSGUzIbA eSECHKlGELEVH9UVDMV0Y8vBDXofcQVGJ70TODUGGB Rc776UxWheUEypPXlg1RBuxi5nPCaGYWxK23TteUm3vZEe1HvE1pkN0OoD4VuJDAy0gsQYisyP7u3AzT Q3oiz6vRrcJQvEqk5cpEtiQ1nZe69V2ZXgQ1m7IyonaL78cKwOaUXH2O5YUIdK5FvgRnbu/RnVIrukCk peIiBG7nBcwtaV6dEqgrhYHL3LjDecLdUmF6KZhNrf 0JNeSm5m3Q+GhkX3+IWeUmAu+TVTGmOZX432DEqngoFC1d73WfrnwCgdA2trh9/2EvKS/Nn0b3gP2PNI cb0yl3t8YhXAqe1EB+nMCUlg63Hbv32KcRc3jtmmyug8av/tuuu3YlnrUD1BgL51x2VU0gmrFU2TC+POST TENSIONING IRONWORKER HELPER yLjd3g8aYOuuigoz3r0Zn+h6U6qDdKiM4B18Asw76i /uxJduB7avlICck1XN5DzCIwUDWaHbDDcvORckh8Uttvi3U1vc6Z57d883lEqnnbb9eLFjkErCf6avs2 A6dap4Cd+K/5eHR1KaTuWwWwbXozskpOpaK9kov3Cheoqs2lmLfTZ+b2lD4WhQSU1AbeRVMJEuA5anH5 3GYJupRu+ISBjEgC7YhegDGtDDbPDT8gZ2M9tYK1YG uw+WrJAedu35zEUOfAKubofGWcfjA5/zWiXcQ4AS0tj6hyyObMaw0rKwJ1GhOrqW9qSdybfB1mgsvBZe HEtoDLCvw5bH8KfFrRzmq/L2uusxI53OpPm0iu9mgLWjcKoiQsjuXP+ziXdNqr7JoRg+5dzALyePAsIv kJMn/BSJ+c5z2RmxtdJi+MyTrshiR03w8aNqX55RxC RkwSc8Cmx5tBmOIbjSARONWJkVrQIBmyeVYVJHixPv7rnVZ+AJzKLaKSQcVjv0YIzcmMRoX+Fi+/4a [file] P4ppZeCZr0ECSfKa9VEQKMT5LFUu== ID Date Data Source [id number] 03/10/2021 01:17:10 PM EDT [facility] NT INFORMATIONPatient MRN Name Date of Age Gend*PT [id number] Beatriz Castaneda 1945 75 years F IPPT Location Admission Date/Time Visit ID Attending [id number] 03/09/21 0937 --- Isiah Clark MD([id number]) EPI ID CSN Admitting Provider [id number] DEEPIKA Castillo([id number]) Attestation signed by DEEPIKA Castillo at 03/10/2021 1:17 PMPatient seen and examined.All notes, labs and imaging reviewed.Case discussed with Jorge Hopkins NP.I agree with her assessment and plan of care. -----Inpatient History & PhysicalCarol A WorkmanMRN:[id number] and Amauri n:Principal Problem: NeutropeniaActive Problems: Hypertension Hypercholesterolemia Diffuse large B cell lymphoma GERD (gastroesophageal reflux disease) PancytopeniaHPI: 75 year old female with past medical history of hypertension, HLD CADstatus post CABG 2007, carotid artery disease status post carotidendarterectomy, left breast cancer status post bilateral mastectomy in , hypertension, obstructive sleep apnea patient was recently diagnosed withB-cell lymphoma, was recently discharged from the hospital on 03/02 afterreceiving inpatient chemo treatment, and [facility].Patient presented to [facility] with chief complaint of muscle ache,back pain weakness, facial and mouth pain with nausea and vomiting. Left facialpain with mouth pain started yesterday evening, and has become so unbearable,she has had difficulty with solid food and only able to tolerate clear liquids,labs from referring hospital showed pancytopenia with severe neutropenia withWBC at 0.1, and also had hyponatremia was initially at 126 and went up to 133..Was given IV fluid and levofloxacin( after consulting with DrTenisha Moss and transferred to [facility].Here patient complaining of facial pain more at the right side into the neck,mild feels like it is burning, states has been having diffuse abdominal painafter being discharged, also back pain has been ongoing since she had spinaltap. Complaining of nausea.Covid done at referring hospital negativeAssessment and planPancytopenia/severe neutropenia associated with chemotherapy-Neutropenic precaution-WBC 0.1, RBC of 2.8, platelet of 43 from referring hospital-Get blood cultures, CBC, CMP, lactate, procalcitonin, inflammatory markers-IV fluid, started on levofloxacin, hematology consultedWeakness, facial pain, muscle aches with history of B-cell lymphoma of thenasopharynx status post recent chemotherapy-will get chest x-ray, CT facial bone, CT abdomen pain management with morphineand Dilaudid poHyponatremia-Labs done at referring hospital and it was up 133-Repeat labs, get an EKGDysphagia likely due toB-cell lymphoma of nasopharynx- will clear liquid for now, will have speech evalDiffuse abdominal pain with nausea and vomiting-States has not had a bowel movement for a week but however usually go 2-3 timesin a week, poor appetite-will get a CT abdomen, Zofran for antiemetic CAD with CABG-Hold aspirin for now, will continue beta-rico and LipitorHypertension Continue metoprolol tartrate 12.5 mg twice daily Hyperlipidemia Continue simvastatin 20 mg daily GERD Continue omeprazole 20 mg daily- DVT prophylaxis: PCD's/PPICode status: DNR/DNIPast Medical History:Past Medical History:Diagnosis Date Hypercholesterolemia HypertensionPast Surgical History:No past surgical history on file.Medications:Medications Prior to AdmissionMedication Sig Dispense Refill Last Dose acetaminophen (TYLENOL) 325 MG tablet Take 2 tablets (650 mg total) by mouthevery 4 (four) hours as needed (mild pain) 30 tablet 0 allopurinol (ZYLOPRIM) 300 MG tablet Take 1 tablet (300 mg total) by mouthdaily 30 tablet 1 aspirin 81 MG chewable tablet Chew 81 mg every morning hydrochlorothiazide (HYDRODIURIL) 25 MG tablet Take 25 mg by mouth everymorning HYDROmorphone (DILAUDID) 2 MG tablet Take 1 tablet (2 mg total) by mouth every4 (four) hours as needed (moderate to severe pain) Max Daily Amount: 12 mg 60tablet 0 metoprolol tartrate (LOPRESSOR) 25 MG tablet Take 12.5 mg by mouth 2 (two)times a day 1/2 tab BID omega-3 acid ethyl esters (LOVAZA) 1 g capsule Take 2 g by mouth 2 (two) timesa day 2 capsules AM and 2 Capsules PM ondansetron (ZOFRAN-ODT) 4 MG disintegrating tablet Take 4 mg by mouth every 6(six) hours as needed for nausea prochlorperazine (COMPAZINE) 10 MG tablet Take 1 tablet (10 mg total) by mouthevery 6 (six) hours as needed 30 tablet 1 simvastatin (ZOCOR) 20 MG tablet Take 20 mg by mouth nightly sulfamethoxazole-trimethoprim (BACTRIM DS,SEPTRA DS) 800-160 MG per tabletTake 1 tab by mouth twice daily every Saturday, Saturday, Saturday 24 tablet 1 vitamin D, Ergocalciferol, 1.25 MG (38032 UT) CAPS Take 1 capsule by mouthevery 30 (thirty) days I capsule 1st of the month PMAllergies:PenicillinsFamily History:Family HistoryProblem Relation Age of Onset Breast cancer Sister Pancreatic cancer BrotherSocial History:Social HistoryTobacco Use Smoking status: Never Smoker Smokeless tobacco: Never UsedSubstance Use Topics Alcohol use: Not Currently Drug use: NeverReview of Systems:Review of SystemsConstitutional: Positive for chills and fatigue. Negative for fever.HENT: Positive for ear discharge (R side ), facial swelling, sinus pressure,sore throat, trouble swallowing and voice change.Eyes: Negative for pain and redness.Respiratory: Negative for shortness of breath.Cardiovascular: Negative for chest pain and leg swel ling.Gastrointestinal: Positive for abdominal pain, nausea and vomiting. Negative forblood in stool and constipation.Endocrine: Negative for polydipsia.Genitourinary: Negative for difficulty urinating and hematuria.Musculoskeletal: Positive for back pain and myalgias.Skin: Negative for rash.Neurological: Positive for weakness, light-headedness and headaches. Negativefor dizziness.Psychiatric/Behavioral: Negative for confusion, sleep disturbance and suicidalideas.Physical Exam:Vital Signs: Temp: [98.9 F] 98.9 FHeart Rate: [91-95] 91Resp: [17-18] 18BP: (131-140)/(66-75) 131/66Physical ExamConstitutional: Appearance: She is ill-appearing.HENT: Head: Normocephalic and atraumatic. Comments: Right-sided neck lymphadenopathy present Mouth/Throat: Mouth: Mucous membranes are dry. Comments: ThrushEyes: Pupils: Pupils are equal, round, and reactive to light.Cardiovascular: Rate and Rhythm: Tachycardia present.Pulmonary: Effort: Pulmonary effort is normal. Breath sounds: Normal breath sounds.Abdominal: General: Abdomen is flat. Palpations: Abdomen is soft. Tenderness: There is abdominal tenderness (diffuse).Musculoskeletal: General: No swelling. Cervical back: Normal range of motion and neck supple.Skin: General: Skin is warm. Coloration: Skin is pale.Neurological: General: No focal deficit present. Mental Status: She is alert and oriented to person, amauri ce, and time.Labs, Imaging and Other Diagnostics:Diagnostic tests reviewed:Signature: Jorge Hopkins NPDate: March 09, 2021Time: 11:57 AMPhone number: [phone] Name Value Range Interpretation Code Description Data Che rce(s) Supporting Document(s) ID Date Data Source [id number] 03/10/2021 12:02:23 PM EDT [facility] NT INFORMATIONPatient MRN Name Date of Age Gend*PT [id number] Beatriz Castaneda 1945 75 years F IPPT Location Admission Date/Time Visit ID Attending [id number] 03/09/21 0937 --- Isiah Clark MD([id number]) EPI ID CSN Admitting Provider [id number] DEEPIKA Castillo([id number])PALLIATIVE CARE CONSULT NOTEREASON FOR CONSULTATION: Pain, Goals of care / advanced care planning andEducation / counseling / supportConsultsASSESSMENT / RECOMMENDATIONS:Beatriz Castaneda is a 75 year old female with past medical history ofhypertension, HLD CAD status post CABG 2007, carotid artery disease status postcarotid endarterectomy, left breast cancer status post bilateral mastectomy [id number], hypertension, obstructive sleep apnea patient was recently diagnosedwith B-cell lymphoma, status post cycle 1 of R-EPOCH from 02/25 to 03/01/21 as wellas IT MTX on 03/02, transferred from outside hospital on 03/09 with facial andabdominal pain, as well as profound neutropenia. She is being supportivelytreated and on antibiotics, and followed by the hematology service as well.The patient has been struggling with poor pain control for the last 2 months,and admits that this has led to a significantly decreased quality of life. Sheis also distressed over the increased burden placed on her , as she isthe one who usually takes c are of the family. Beatriz agrees that the firstpriority is to work towards improved pain and symptom management, before makingany major decisions regarding treatment and direction of care.To that end, it appears her pain has neuropathic as well as inflammatorycomponents, on top of the standard nociceptive pain. If not otherwisecontraindicated by her severe neutropenia, consider initiating dexamethasone 4mg every morning. In addition, pregabalin is very effective and has a quickonset for neuropathic pain, and suggest starting this at 50 mg twice per day.This can be titrated upward to 3 times per day if necessary and the patient istolerating it well. Also, in terms of opioid management, suggest startingfentanyl patch at 12 mcg/h, as the transdermal route of opioids is known fordecrease levels of opioid-induced constipation.Lastly, palpation over the patient's right lower quadrant, at least on my exam,induced a slightly increased amount of tenderness. This, in conjunction withthe findings on the CT scan, are worrisome for underlying appendicitis. Suggestgeneral surgery consult to address this and for further clarification.1. Primary or principal disease process: Management as per primary team.2. Pain and symptom management: Suggest starting fentanyl patch 12 mcg/h transdermally every 3 days. Continue with hydromorphone 2 mg PO every 4 hours as needed, pain Suggest dexamethasone 8 mg orally every morning Suggest pregabalin 50 mg orally twice per day, can titrate up to 3 times perday if tolerating and pain not well controlled.3. Coordination/goals of care: DNR/DNI. Readdress goals of care after symptoms better managed.PCP: VLADISLAV OSORIO, MDCONSULTING PROVIDERS: Isiah Clark, JAVONOMMUNICATION / DISCUSSION AREAPeople Present: PatientItems Discussed: Advanced care planning and goals of care (20 minutes)Code Status: Patient previously transitioned to DNR/DNI.Goals of Care: YesOther discussion: I began the conversation by introducing palliative careservices to the patient. Beatriz was able to describe for me how she had been inpretty good state of health until a few months ago when diagnosed with alymphoma. She states these last couple of months have been particu larlydifficult for her, and her quality of life has been very poor. She admits thatthis is largely due to constant pain that has not been well managed in heropinion. She has struggled with facial pain and more recently abdominal pain aswell. She is concerned over the burden this is placing on her , who isnow driving almost [address] her here in the hospital. She has 3children and 12 grandchildren who live locally, and bring her tremendous teressa.She feels that she has not been able to enjoy their company recently, and itdistresses her that she is not able to provide and give as much of them aspreviously. Beatriz admits that she has considered not continuing with treatmentgiven her poor quality of life, though recognizes that her cancer is treatableand thinks she may feel differently if her pain and symptoms were bettermanaged.Pain/symptom discussion:Beatriz describes her pain as a sense of fullness and throbbing in her face andworse on the right side, as well as a burning component. It is relativelyconstant and not affected by position. She states that when she was on steroidspreviously, this did seem to help with the pain. The opioid medications she hasbeen provided take the edge off, though have not provided significant relief.She has new pain also throughout her abdomen, which she describes as primarilyburning in nature. It is relatively diffuse, and with it she has a sense ofloss of appetite as well as nausea. She has not tried other medications for herpain, including those in the anticonvulsant family or reinstitution of steroidmedications.CODE STATUS: DNR & DNI (No CPR / No Intubation)FAMILY CONTACT/HCR/POA: Thao ().HISTORY OF PRESENT ILLNESS:Beatriz Castaneda is a 75 year old female with past medical history ofhypertension, HLD CAD status post CABG 2007, carotid artery disease status postcarotid endarterectomy, left breast cancer status post bilateral mastectomy [id number], hypertension, obstructive sleep apnea patient was recently diagnosedwith B-cell lymphoma, was recently discharged from the hospital on 03/02 afterreceiving inpatient chemo treatment, and [facility]. 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 She received neulasta on 03/02/21. She was admittedwith fa cial and abdominal pain.Patient presented to [facility] with chief complaint of muscle ache,back pain weakness, facial and mouth pain with nausea and vomiting. Left facialpain with mouth pain started yesterday evening, and has become so unbearable,she has had difficulty with solid food and only able to tolerate clear liquids,labs from referring hospital showed pancytopenia with severe neutropenia withWBC at 0.1, and also had hyponatremia was initially at 126 and went up to 133..Was given IV fluid and levofloxacin( after consulting with Dr. Barnes),Tenisha and transferred to [facility] on 03/09. Since admission, thepatient has had a CT scan of her sinuses as well as her abdomen and pelvis, withreports noted below. She is being treated for facial and abdominal pain, aswell as constipation. The patient expressed having a very low quality of lifeand questioning whether or not to continue with treatment for her cancer.Palliative care team was consulted to help with clarification of goals, assistwith pain management, and initiate advanced care planning discussions.PAST MEDICAL HISTORY: PAST SURGICAL HISTORYPast Medical History:Diagnosis Date Hypercholesterolemia Hypertension No past surgical history on file.SPIRITUALITY: Not explored.FAMILY/SOCIAL HISTORYSocial HistorySocioeconomic History Marital status: Spouse name: Not on file Number of children: Not on file Years of education: Not on file Highest education level: Not on fileOccupational History Not on fileTobacco Use Smoking status: Never Smoker Smokeless tobacco: Never UsedSubstance and Sexual Activity Alcohol use: Not Currently Drug use: Never Sexual activity: Not on fileOther Topics Concern Not on fileSocial History Narrative Not on fileSocial Determinants of HealthFinancial Resource Strain: Difficulty of Paying Living Expenses:Food Insecurity: Worried About Running Out of Food in the Last Year: Ran Out of Food in the Last Year:Transportation Needs: Lack of Transportation (Medical): Lack of Transportation (Non-Medical):Physical Activity: Days of Exercise per Week: Minutes of Exercise per Session:Stress: Feeling of Stress :Social Connections: Frequency of Communication with Friends and Family: Frequency of Social Gatherings with Friends and Family: Attends Spiritism Services: Active Member of Clubs or Organizations: Attends Club or Organization Meetings: Marital Status:Intimate Partner Violence: Fear of Current or Ex-Partner: Emotionally Abused: Physically Abused: Sexually Abused:Family HistoryProblem Relation Age of Onset Breast cancer Sister Pancreatic cancer BrotherCURRENT MEDICATIONS:Scheduled Meds: allopurinol 300 mg Oral Daily levofloxacin 500 mg Intravenous Q24H metoprolol tartrate 12.5 mg Oral BID normal saline flush 10 mL Intravenous Q8H GERRY normal saline flush 3 mL Intravenous Q8H GERRY nystatin 500,000 Units Oral 4x Daily pantoprazole 40 mg Oral Daily potassium chloride 40 mEq Oral Once simvastatin 20 mg Oral NightlyContinuous Infusions: sodium chloride 75 mL/hr at 03/10/21 0222PRN Meds:acetaminophen, atropine sulfate, BMX solution, guaifenesin-codeine,HYDROmorphone, Morphine Sulfate (PF), ondansetronALLERGIES:AllergiesAllergen Reactions Penicillins RashCLINICAL DATA: Laboratory data, microbiology, and diagnostic imaging reviewed.Labs Reviewed:BMP:Lab ResultsComponent Value Date NA 135 (L) 03/10/2021 K 3.5 (L) 03/10/2021 CL 101 03/10/2021 CO2 26 03/10/2021 ANIONGAP 8 03/10/2021 CALCIUM 7.5 (L) 03/10/2021 GLU 92 03/10/2021 BUN 7 03/10/2021 CREATININE 0.18 (L) 03/10/2021 GFRAA >60 03/10/2021 GFRNONAA >60 03/10/2021BC Brief:Lab ResultsComponent Value Date WBC 0.1 (LL) 03/10/2021 HGB 7.8 (L) 03/10/2021 HCT 22.6 (L) 03/10/2021 PLT 26 (L) 03/10/2021Imaging Reviewed: YesSignificant Findings:CT scan abdomen pelvis with contrast, 03/09/2021:Impression: Retrocecal appendix with Mild appendiceal dilatation. No fatstranding however there may be mild thickening of the fascia posterior to theappendix. Acute appendicitis cannot be excluded. Clinical correlation issuggested. Age-indeterminate L1 compression fracture. Cholelithiasis. Diffuse hepatic fatty infiltration and hepatomegaly. Constipation. There is a transition zone of dilatation between the drain wascolon and splenic flexure without mass demonstrated. This is probably afunctional transition zone rather than a mass. Because this is not c ertainsuggest endoscopy or barium enema at the appropriate clinical time.CT scan facial bones with contrast, 03/09/2021:IMPRESSION: Improving appearance of a mass in the nasopharynx. Increased rightsphenoid sinusitis. No bone destruction. 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: Had been independent at home living with husbandIndependent in ADL's: IndependentAssistive Devices: NoneDiet: Diet Regular; Not Thickened; Clear LiquidsPHYSICAL EXAM:BP 128/75 | Pulse 72 | Temp 97.2 F (Oral) | Resp 15 | SpO2 100%Intake/Output Summary (Last 24 hours) at 03/10/2021 1122Last data filed at 03/10/2021 0842Gross per 24 hourIntake 298.75 ml Output 1350 mlNet -1051.25 mlAwake, alert, oriented times 3.General appearance: alert and WD female, lying in bed, appears mildlyuncomfortableHEENT: No recent change in vision or hearing.Lungs: Breathing unlabored, no audible wheezingAbdomen: soft, non-tender; bowel sounds normal; no masses, no organomegaly andSoft, diffuse tenderness to outpatient increase in RLQ palpation, no reboundtendernessExtremities: No edema.Neurologic: Grossly normalThank you for this consult, and the opportunity to participate in this patient'scare.I spent 20 minutes of this encounter dedicated only to advance care planning andgoals of care discussion.I spent an additional and separate 15 minutes on pain and symptom management.Marco Raymundo MD03/10/2111:22 AM Name Value Range Interpretation Code Description Data Che rce(s) Supporting Document(s) ID Date Data Source [id number] 03/10/2021 09:40:38 AM EDT [address] [id number] Name: BEATRIZ Quinn WORKMANDOB: 1945Sex: FOrdering Provider: JORGE ANTUNEZREAuthorizing Prov: JORGE ASAREReferring Provider: Procedure Performed: CT FACIAL BONES W CONTRASTExam Date: 03/10/2021 09:03MRN: [id number] Number: [id number] Class: InpatientAccount #: [id number] for Exam: Nasopharyngeal cancer, monitorTechnique: Helical axial images were obtained during the administration 70ml of Isovue 370 IV contrast.One or more of the following dose reduction techniqueswere utilized; automated exposure control, dose modulation, technique adjustment based on patient size and iterativereconstruction algorithms. Multiplanar reconstructions were created and reviewed.Comparison: March 02, 2021 CT scan of the facial bones.Findings: Significant decreased size of the soft tissues in the right greater the left nasopharynx. It is still asymmetrically larger on the right side as compared to the left side.The visualized portions of brain appear normal. The visualized portions of orbits are contents appear normal. There is persistent but improved mucosal thickening in the floor the right maxillary sinus. There is increased m ucosal thickening in the right sphenoid sinus. There is relatively stable mucosal thickening in the right greater than left ethmoid air cells. Nasal septum is bowed to the left. I do not see bone destruction. I do not see invasion of the floor the maxilla. I do not see bone destruction of the visualized cervical spine or skull base.Lymph node in the right neck CT scan image 33 previously measuring 1.9 x 1.4 cm is significantly smaller now measuring 1.5 x 0.8 cm. A second smaller lymph node is also seen adjacent to the dominant lymph node on coronal image #50. These findings are similar to the prior study, although lymph nodes are much smaller..IMPRESSION: Improving appearance of a mass in the nasopharynx. Increased right sphenoid sinusitis. No bone destruction. Significant reduction in lymphadenopathy.Report electronically signed by: SHERITA LEAHY On 03/10/2021 9:40 AMWorkstation ID: [id number] - [id number] Name Value Range Interpretation Code Description Data Che rce(s) Supporting Document(s) ID Date Data Source [id number] 03/10/2021 09:21:14 AM EDT [address] [id number] Name: BEATRIZ Quinn WORKMANDOB: 1945Sex: FOrdering Provider: JORGE Muñiz Prov: JORGE HOPKINSReferrdavid Provider: Procedure Performed: CT ABDOMEN PELVIS W CONTRASTExam Date: 03/10/2021 09:03MRN: [id number] Number: [id number] Class: InpatientAccount #: [id number] for Exam: Nausea/vomitingAbdominal pain, acute, nonlocalizedTechnique: Helical axial images were obtained during the administration 70ml of Isovue 370 IV contrast.One or more of the following dose reduction techniqueswere utilized; automated exposure control, dose modulation, technique adjustment based on patient size and iterativereconstruction algorithms. Multiplanar reconstructions were created and reviewed.Comparison: NoneFindings: Findings:Lung bases:UnremarkableLiver:Diffuse hepatic fatty infiltration. No focal abnormality. Mild hepatomegaly.Gallbladder and biliary tree:Multiple calculi present. No gross wall thickening.Pancreas:Unrem arkableSpleen:UnremarkableAdrenal glands:UnremarkableKidneys and ureters:UnremarkableBladder:UnremarkableReproductive organs:UnremarkableBowel:There is mild to moderate dilatation of the cecum, ascending colon and transverse colon due to a large amount of stool and gas. The splenic fracture is decompressed as is the descending colon to the rectum. No obstructing mass is revealed at the transition zone.Appendix: There is a retrocecal appendix. There is minimal appendiceal dilatation. No periappendiceal fat stranding is demonstrated. There may be thickening of the fascia posterior to the retrocecal appendix however this is not certain.Lymph nodes:UnremarkableVessels:UnremarkableOsseous structures:There is age- indeterminate mild compression fracture of L1.Peritoneum:UnremarkableSoft tissues:UnremarkableImpression: Retrocecal appendix with Mild appendiceal dilatation. No fat stranding however there may be mild thickening of the fascia posterior to the appendix. Acute appendicitis cannot be excluded. Clinical correlation is suggested.Age-indeterminate L1 compression fracture.Cholelithiasis.Diffuse hepatic fatty infiltration and hepatomegaly.Constipation. There is a transition zone of dilatation between the drain was colon and splenic flexure without mass demonstrated. This is probably a functional transition zone rather than a mass. Because this is not certain suggest endoscopy or barium enema at the appropriate clinical time.Report electronically signed by: MARYJANE LYNCH On 03/10/2021 9:21 AMWorkstation ID: [id number] - [id number] Name Value Range Interpretation Code Description Data Che rce(s) Supporting Document(s) ID Date Data Source [id number] 03/08/2021 10:20:00 PM EDT [facility] 1 OrderSheet [facility] Emergency Department [address] [place] [address] Phone #: [phone] 03/08/2021 22:19 Patient: BEATRIZ CASTANEDA Sex: F : 1945 Age: 75yWEIGHT:58.0 kg (S) HEIGHT:62 inches (S) BMI:23.4ALLERGIES: PenicillinsCHIEF COMPLAINT: muscle aches, back pain, weaknessDIAGNOSIS: Hyponatremia, NeutropeniaLAB ORDERSOrder Description Priority Entered Acknowledged InitialedCBC w Diff STAT 23:24 03/08/2021 Ack'd: 23:26 Zion 23:53 Danilo Figueroa R.N., R.N., M.D.;CMP STAT 23:24 03/08/2021 Ack'd: 23:26 Zion 23:53 Danilo Figueroa R.N., R.N..D.;Lactic Acid STAT 23:24 03/08/2021 Ack'd: 23:26 Zion 23:53 Zion Danilo Cole R.N., R.N., M.D.;Blood Culture STAT 23:24 03/08/2021 Ack'd: 23:26 Zion 23:53 Zion [id number] X2 (Rogelio Danilo Black R.N., R.N.23:24 03/08/2021) Kishore;Blood Culture STAT 23:24 03/08/2021 00:03 03/09/2021q10m X2 (Rogelio Danilo Black RN23:34 03/08/2021) Kishore;COVID-19 CAH (Not STAT 23:24 03/08/2021 Ack'd: 23:26 Zion 23:40 Celestin,Symptomatic as Danilo Black R.N. VirginiaDefined by CDC) Kishore;(03/08/2021) (NotFirst Test) (NotHospitalized) (Not) (NotResident inCongregate CareSetting) (NotEmployed inHealthcare Setting)Electrolyte Panel STAT 01:44 03/09/2021 Ack'd: 01:58 Zion 01:58 Danilo Figueroa R.N., R.N., M.D.;CBC w Diff STAT 05:53 03/09/2021 05:56 Zion Jayy Zion Freitas R.N. 2 OrderSheet [facility] Emergency Department [address] [place] [address] Phone #: ext- [phone] 03/08/2021 22:19 Patient: BEATRIZ CASTANEDA Sex: F : 1945 Age: 75y R.N.; Verbal order per; Danilo Black M.D.Electrolyte Panel STAT 05:53 03/09/2021 05:56 Zion Jayy Zion Freitas R.N. R.N.; Verbal order per; Danilo Black M.D.DIAGNOSTIC STUDY ORDERSOrder Description Priority Entered Acknowledged InitialedChest Portable 1 STAT 23:25 03/08/2021 Ack'd: 23:26 Zion 23:53 Zion BlairView Danilo Black R. N. Zena R.N.(Oxygen?(No)) Kishore; Reason for ordering with alerts: Does not appear to be a true allergy -- 23:25 03/08/2021 Danilo Black M.D. Reason for Study: neutropenia, weaknessMEDICATION/IV/DRIP/FLUID ORDERSOrder Description Priority Entered Acknowledged InitialedNS IV 500 mL 23:25 03/08/2021 23:51 Zion BlairBolus: : Bolus 500 Danilo Black R.N.mL, then 150 mL/hr M.DNanette;(X1) Reason for ordering with alerts: Does not appear to be a true allergy -- 23:25 03/08/2021 Danilo Black M.D.levoFLOXacin IVPB 23:25 03/08/2021 23:53 Zion Zphym859 mg/100mL Danilo Black R.N. M.DNanette; Reason for ordering with alerts: Does not appear to be a true allergy -- 23:25 03/08/2021 Danilo Black M.D.Morphine IVP 4 mg 23:25 03/08/2021 23:52 Zion Jayy(HIGH ALERT Danilo Black R.N.MEDICATION) Kishore;Zofran 4 mg IVP X 1 23:25 03/08/2021 23:52 Zion Blairdose: 4 mg (NOW Danilo Black R.N.x1) Kishore;Morphine IVP 4 mg 00:33 03/09/2021 Ack'd: 00:33 Zion 00:40 Zion Jayy(NOW x1, HIGH Zion Jayy Zena Freitas R.N. Zena R.N.ALERT R.N.; Verbal orderMEDICATION) per; Danilo Black M.D.Reglan 10 mg IVP 02:38 03/09/2021 02:39 Zion Jayy 3 OrderSheet [facility] Emergency Department [address] [place] [address] Phone #: ext- [phone] 03/08/2021 22:19 Patient: BEATRIZ CASTANEDA Sex: F : 1945 Age: 75yX1 dose: 10 mg Zion Jayy Zena marrero R.N.(NOW x1) R.N.; Verbal order per; Danilo Black M.D.Zofran 4 mg IVP X 1 03:03 03/09/2021 03:09 Zion Jayydose: 4 mg (NOW Danilo Black R.N.x1) Kishore;NS IV : 1 00 mL/hr 04:49 03/09/2021 04:49 Zion Jayy Zionkai Freitas R.N. R.N.; Verbal order per; Danilo Black M.D.Morphine IVP 4 mg 04:57 03/09/2021 04:57 Zion Jayy(NOW x1, HIGH Zion Jayy Zena Freitas R.N.ALERT R.N.; Verbal orderMEDICATION) per; Danilo Black M.D.Phenergan IV 12.5 06:49 03/09/2021 06:52 Zion Blairmg (NOW x1, HIGH Zion Jayy Zena Freitas R.N.ALERT R.N.; Verbal orderMEDICATION) per; Danilo Black M.D.GENERAL ORDERSOrder Description Priority Entered Acknowledged InitialedTransfer: 02:54 03/09/2021 02:57 Danilo Figueroa R.N., M.D.;Consult - 02:54 03/09/2021 02:57 Zion HopeHospitalist Danilo Black R.N., M.D.;[Electronically signed by Kulwant Holley RN (11:36 03/09/2021)][Electronically signed by Danilo Black M.D. (07:42 03/10/2021)][Electronically locked by Kulwant Holley RN (11:36 03/09/2021)] Name Value Range Interpretation Code Description Data Che rce(s) Supporting Document(s) ID Date Data Source [id number] 03/08/2021 10:20:00 PM EDT [facility] 1 Medication Reconciliation Report [facility] Emergency Department [address] [place] [address] Phone #: ext- [phone] 03/08/2021 22:19 Patient: BEATRIZ CASTANEDA Sex: F : 1945 Age: 75yWeight: 58.0 kgHeight/Length: 62 in.BMI: 23.4ALLERGIES: PenicillinsThe patient's Home Medications are listed below:THE FOLLOWING MEDICATIONS NEED TO BE RECONCILED: Allopurinol Oral (300 mg) 1 tablet, daily Aspirin Oral (81 mg) 1 tablet, daily Ergocalciferol Oral (1.25 MG (78263 UT)) 1 capsule, monthly, 1st of the month HydroCHLOROthiazide Oral (25 mg) 1 tablet, daily, every AM HYDROmorphone HCl Oral (2 mg) 1 tablet, q4h, moderate to severe pain, prn Lovaza Oral (1 gm) 2 capsules, 2x a day Metoprolol Tartrate Oral (25 mg) 1/2 tablet, 2x a day Prochlorperazine Maleate Oral (10 mg) 1 tablet, q6h, nausea vomiting, prn Simvastatin Oral 20 mg, daily, at b edtime Sulfamethoxazole-Trimethoprim Oral (800-160 mg) 1 tablet, 2x a day, saturday Tylenol Oral (325 mg) 2 tablets, q4h, mild pain, prn Zofran Oral (4 mg) 1 tablet, q6h, nausea, prnThe source(s) of the original Home Medication information:Not obtained.The following Medications were given to the patient in the Emergency Department: 2 Medication Reconciliation Report [facility] Emergency Department [address] [place] [address] Phone #: ext- [phone] 03/08/2021 22:19 Patient: BEATRIZ CASTANEDA Sex: F : 1945 Age: 75yNS [IV] IV Fluids bolus 0, then 500 mL/hr, administered: 23:41 03/08/2021Zofran [IVP] IVP 4 mg, administered: 23:43 03/08/2021Morphine [IVP] IVP 4 mg, administered: 23:45 1levaquin Drip IV bolus 0, then 500 mg, administered: 23:48 03/08/2021Morphine [IVP] IVP 4 mg, administered: 00:35 1Reglan [IVP] IVP 10 mg, administered: 02:34 03/09/2021Zofran [IVP] IVP 4 mg, administered: 03:04 03/09/2021NS [IV] IV Fluids bolus 0, then 100 mL/hr, administered: 04:15 03/09/2021Morphine [IVP] IVP 4 mg, administered: 04:52 1Phenergan [IV Drip] Drip IV bolus 0, then 12.5 mg 200 mL/hr, administered: 06:40 03/09/2021The following Medications were prescribed to the patient:None. Name Value Range Interpretation Code Description Data Che rce(s) Supporting Document(s) ID Date Data Source [id number] 03/08/2021 10:20:00 PM EDT [facility] 1 Medication Administration Record [facility] Emergency Department [address] [place] [address] Phone #: ext- [phone] 03/08/2021 22:19 Patient: BEATRIZ CASTANEDA Sex: F : 1945 Age: 75yWeight: 58.0 kgHeight/Length: 62 inBMI: 23.4ALLERGIES: Penicillins Date/Time Medication Administered Medication OrderedStart NS [IV] NS IV 500 mL Bolus: : Bolus 64664:41 03/08/2021 Dose: IV Fluids mL, then 150 mL/hr (X1)Zion Freitas R.N. Rate: 500 mL/hr---- Dispensed: 1000 mL bagStop Site: #1 left chest04:15 03/09/2021Zion Freitas R.N.Start levaquin * levoFLOXacin IVPB 500 mg/033yS87:48 03/08/2021 Dose: 500 mg * Drip IVZion Freitas R.N.----Stop00:58 03/09/2021Zion Freitas R.N.Given MORPHINE [IVP] Morphine IVP 4 mg (HIGH ALERT23:45 03/08/2021 Dose: 4 mg IVP MEDICATION)Zion Freitas R.N. Site: #1 left chestGiven ZOFRAN [IVP] (ONDANSETRON HCL) Zofran 4 mg IVP X 1 dose: 4 mg23:43 03/08/2021 Dose: 4 mg IVP (NOW x1)Zion Freitas R.N. Site: #1 left chestGiven MORPHINE [IVP] Morphine IVP 4 mg (NOW x1, HIGH00:35 03/09/2021 Dose: 4 mg IVP ALERT MEDICATION)Zion Freitas R.N. Site: #1 left chestGiven REGLAN [IVP] (METOCLOPRAMIDE Reglan 10 mg IVP X1 dose: 10 mg02:34 03/09/2021 HCL) (NOW x1)Zion Freitas R.N. Dose: 10 mg IVP Site: #1 left chestGiven ZOFRAN [IVP] (ONDANSETRON HCL) Zofran 4 mg IVP X 1 dose: 4 mg03:04 03/09/2021 Dose: 4 mg IVP (NOW x1)Zion Freitas R.N. Site: #1 left chestStart NS [IV] NS IV : 100 mL/hr04:15 03/09/2021 Dose: IV FluidsZion Freitas R.N. Rate: 100 mL/hr---- Dispensed: 1000 mL bagContinued Upon Transfer Site: #1 left chest07:35 03/09/2021[facility], Given MORPHINE [IVP] Morphine IVP 4 mg (NOW x1, HIGH04:52 03/09/2021 Dose: 4 mg IVP ALERT MEDICATION)Zion Freitas R.N. Site: #1 left chestStart PHENERGAN [IV DRIP] Phenergan IV 12.5 mg (NOW x1,06:40 03/09/2021 (PROMETHAZINE HCL) HIGH ALERT MEDICATION)Zion Freitas R.N. Dose: 12.5 mg Drip IV---- Rate: 200 mL/hr 2 Medication Administration Record [facility] Emergency Department [address] [place] [address] Phone #: ext- [phone] 03/08/2021 22:19 Patient: BEATRIZ CASTANEDA Sex: F : 1945 Age: 75yStop Dispensed: 50 mL bag06:55 03/09/2021 Site: #1 left chestTina Jayy Freitas R.N. Name Value Range Interpretation Code Description Data Che rce(s) Supporting Document(s) ID Date Data Source [id number] 03/08/2021 10:20:00 PM EDT [facility] 1 General Instructions [facility] Emergency Department [address] [place] [address] Phone #: ext- [phone] 03/08/2021 22:19 Patient: BEATRIZ CASTANEDA Sex: F : 1945 Age: 75yNeutropenia associated with cancer chemotherapy.Moderate hyponatremia.B-cell Lymphoma S/P recent Chemotherapy;Pancytopenia.(Electronically signed by Danilo Black M.D. 03/10/2021 07:42) Name Value Range Interpretation Code Description Data Che e(s) Supporting Document(s) ID Date Data Source [id number] 03/08/2021 10:20:00 PM EDT [place] [address] Clinical Report - Nurses [facility] Emergency Department [address] [place] [address] Phone #: ext- [phone] 03/08/2021 22:19 Patient: BEATRIZ CASTANEDA Sex: F : 1945 Age: 75yTRIAGEArrived by private vehicle. 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 --22:21 03/08/21 Zion Freitas R.N.Acuity: LEVEL 3.SEPSIS SCREEN: SEPSIS SCREEN NEGATIVE. No suspected or confirmed signs of infection present.--22:22 03/08/21 Zion Freitas R.N.22:21 03/08/21. BP: 155/84. MAP: 107. HR: 74. RR: 16. O2 saturation: 99%. Temp: 98 F. Pain level now:06/04. --22:22 03/08/21 Zion Freitas R.N.( Is undergoing Chemo for B cell Lymphoma, had inpt chemo at [facility]. Was d/c'd on 02 March and isdue for next round 18 March.). 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 --22:37 03/08/21 Zion Freitas R.N.Weight: 58 kg stated. Height/Length: 62 inches Per Patient. BMI: 23.4. --22:20 03/08/21 Zion Freitas R.N.MedicationsAllopurinol Oral (Tablet 300 mg) 1 tablet, daily. Aspirin Oral (Tablet Chewable 81 mg) 1 tablet, daily. Ergocalciferol Oral (Capsule 1.25 MG (70279 UT)) 1 capsule, monthly (1st of the month). HydroCHLOROthiazide Oral (Tablet 25 mg) 1 tablet, daily every AM. HYDROmorphone HCl Oral (Tablet 2 mg) 1 tablet, q4h as needed, moderate to severe pain. Lovaza Oral (Capsule 1 gm) 2 capsules, 2x a day. Metoprolol Tartrate Oral (Tablet 25 mg) 1/2 tablet, 2x a day. Prochlorperazine Maleate Oral (Tablet 10 mg) 1 tablet, q6h as needed, nausea vomiting. Simvastatin Oral 20 mg, daily at bedtime. Sulfamethoxazole-Trimethoprim Oral (Tablet 800-160 mg) 1 tablet, 2x a day (saturdayday saturday). Tylenol Oral (Tablet 325 mg) 2 tablets, q4h as needed, mild pain. Zofran Oral (Tablet 4 mg) 1 tablet, q6h as needed, nausea. --22:22 03/08/21 Zion Freitas R.N. 2 Clinical Report - Nurses [facility] Emergency Department [address] [place] [address] Phone #: ext- [phone] 03/08/2021 22:19 -------- Patient: BEATRIZ CASTANEDA Sex: F : 1945 Age: 75yAllergiesPenicillins. (BREAKOUT x1) --22:22 03/08/21 Zion Freitas R.N.PROBLEMS:B Cell Lymphoma.Neutropenia.Renal Colic.Weakness.Sleep Apnea.Vomiting.Dehydration.Carotid Artery Disease.Hypercholesterolemia.Hypokalemia.Hypertension. --22:34 03/08/21 Zion Freitas R.N.ADDITIONAL SURGERIES:Carotid Surgery.Infusa port placement.Mastectomy (25 YEARS AGO).OPEN HEART SURGERY. --22:34 03/08/21 Zion Freitas R.N.HistorySOCIAL HX: Never smoker. No alcohol use or drug use. She was offered HIV testing but declined andhepatitis C testing but declined. She has not traveled outside the [place]Infectious disease exposure: No infectious disease exposure.SELF HARM ASSESSMENT: Self harm assessment was performed. The patient answered "no" to thequestion(s) "Do you have thoughts of harming or killing yourself?" and "Have you recently had thoughtsabout harming or killing others?".ABUSE ASSESSMENT: No report of abuse.FALL RISK ASSESSMENT: Fall risk assessment completed. Risk factors identified include severe painand weakness. Fall interventions initiated. Bed in low position. Brakes on. Family at bedside. Call light inreach of patient and family. --22:24 03/08/21 Zion Freitas R.N.InterventionsAdvanced care plan discussed with patient and family. Patient has a fq-evf-jxwuptrifcd (DNR) (wishes Amrit Castaneda to be her HCP, has paperwork to be completed). --22:25 03/08/21 Zion Freitas R.N.PHYSICAL ASSESSMENT 3 Clinical Report - Nurses [facility] Emergency Department [address] [place] [address] Phone #: ext- [phone] 03/08/2021 22:19 Patient: BEATRIZ CASTANEDA Sex: F : 1945 Age: 75y Ambulatory to room. GENERAL / NEURO / PSYCH: Alert. Oriented X 4. Appears in pain and anxious. HEENT: ( tongue and mouth is coated white). RESPIRATORY: The patient can speak in full sentences. GI / : ( reports decreased intake, states that it is hard to eat r/t her mouth pain. Nausea with some vomiting (Phlegm)). SKIN: Skin is pale. --22:28 03/08/21 Zion Freitas R.N.NURSING PROGRESS NOTESPatient gowned. Head of bed elevated. Reassurance given to the patient and patient's family. Call lightplaced in reach. Bed placed in lowest position. Brakes of bed on. --22:26 03/08/21 Zion Freitas R.N. Monitoring of patient in place. --22:33 03/08/21 Zion Freitas R.N. 23:36 03/08/2021 Site #1 started via IV in the left chest with an 20g angiocath, with aseptic technique; one attempt. Blood drawn: rainbow set and cultures x1. Labeled in the presence of the patient and sent to the lab. Saline lock flushed with 10 mL saline (By BENITA RN). --23:51 03/08/21 Zion Freitas R.N. 23:41 03/08/2021 Started bag #1 1000 mL IV Fluids NS; at 500 mL/hr via site #1 via IV pump. Allergies verified and confirmed 5 rights. IV patency established. IV site checked: no pain, redness, or swelling. IV flushed thoroughly pre- and post-medication administration. Information reviewed with patient including reason for taking this medication. Verbalizes understanding. --23:51 03/08/21 Zion Freitas R.N. 23:43 03/08/2021 Zofran (Ondansetron HCl) IVP 4 mg given over 2 minute(s) via site #1. Allergies verified and confirmed 5 rights. IV patency established. IV site checked: no pain, redness, or swelling. IV flushed thoroughly pre- and post-medication administration. IVP given by RN. Information reviewed with patient and spouse including reason for taking this medication. Verbalizes understanding. --23:52 03/08/21 Zion Freitas R.N. 23:45 03/08/2021 Morphine IVP 4 mg given over 4 minute(s) via site #1. Allergies verified and confirmed 5 rights. IV patency established. IV site checked: no pain, redness, or swelling. IV flushed thoroughly pre- and post-medication administration. IVP given by RN. Information reviewed with patient and spouse including reason for taking this medication and sedative warning. Verbalizes understanding (diluted in 10 ml NS). --23:52 03/08/21 Zion Freitas R.N. 23:48 03/08/2021 levaquin * Drip IV 500 mg over 1 hr --23:53 03/08/21 Zion Freitas R.N. 23:00 03/08/21. BP: 124/79. MAP: 94. HR: 104. RR: 30. O2 saturation: 99%. --23:54 03/08/21 Zion Freitas R.N. 23:30 03/08/21. BP: 126/67. MAP: 86. HR: 100. RR: 15. O2 saturation: 94%. --23:55 03/08/21 Zion Freitas R.N. 4 Clinical Report - Nurses [facility] Emergency Department [address] [place] [address] Phone #: ext- [phone] 03/08/2021 22:19 Patient: BEATRIZ CASTANEDA Sex: F : 1945 Age: 75y23:51 03/08/21. Portable chest x-ray completed. --23:56 03/08/21 Zion Freitas R.N.00:35 03/09/2021 Morphine IVP 4 mg given over 2 minute(s) via site #1. Allergies verified and confirmed 5rights. IV patency established. IV site checked: no pain, redness, or swelling. IV flushed thoroughly pre-and post- medication administration. IVP given by RN. Information reviewed with patient including reasonfor taking this medication and sedative warning. Verbalizes understanding. --00:40 03/09/21 Zion Aden R.N.00:44 03/09/2021 IV Fluids NS via IV site #1 Rate Changed: bag #1 decreased to 150 mL/hr. IV patencyestablished. IV site checked: no pain, redness, or swelling. IV flushed thoroughly. (500 ml boluscompleted). --00:44 03/09/21 Zion Freitas R.N.00:44 03/09/21. BP: 94/52. MAP: 66. HR: 87. RR: 16. O2 saturation: 97%. Additional comments: dozingat intervals . --00:45 03/09/21 Zion Freitas R.N.Critical value relayed by December. Critical value received by Oswald. WBC: 0.1. Critical value read back.--01:04 03/09/21 Troy Freitas RN( Provider on phone with [facility] in [place]). --01:15 03/09/21 Zion Freitas R.N.The patient is resting quietly. --01:41 03/09/21 Zion Freitas R.N.01:40 03/09/21. BP: 116/61. MAP: 79. HR: 90. RR: 16. O2 saturation: 96%. --01:41 03/09/21 Zion Aden R.N.00:58 03/09/2021 Levaquin Drip IV Discontinued: completed. Total amount infused: 100 mL. IV patencyestablished. IV site checked: no pain, redness, or swelling. IV flushed thoroughly. --01:58 03/09/21 Odessa Freitas R.N.Checked patient name and birthdate: patient confirmed. Blood samples drawn with Vacutainer by nurse ;labeled in presence of the patient and sent to lab: green and yellow top. MediPort accessed. Line flushedwith 10 mL normal saline post blood draw. --01:59 03/09/21 Zion Freitas R.N.02:34 03/09/2021 Reglan (Metoclopramide HCl) IVP 10 mg given over 5 minute(s) via site #1. Allergiesverified and confirmed 5 rights. IV patency established. IV site checked: no pain, redness, or swelling. IVflushed thoroughly pre- and post-medication administration. IVP given by RN. Information reviewed withpatient including reason for taking this medication. Verbalizes understanding. --02:39 03/09/21 Zion Aden R.N.( Face sheet faxed per request to [facility] Instructions rec'd to call at [phone] for bed assignment. MDat bedside speaking with pt and her spouse.). --03:01 03/09/21 Zion Freitas R.N.03:00 03/09/21. BP: 130/61. MAP: 84. HR: 100. RR: 22. O2 saturation: 95%. --03:01 03/09/21 Zion Aden R.N. 5 Clinical Report - Nurses [facility] Emergency Department [address] [place] [address] Phone #: ext- [phone] 03/08/2021 22:19 Patient: BEATRIZ CASTANEDA Sex: F : 1945 Age: 75y03:03/09/2021 Zofran (Ondansetron HCl) IVP 4 mg given over 2 minute(s) via site #1. Allergies verifiedand confirmed 5 rights. IV patency established. IV site checked: no pain, redness, or swelling. IV flushedthoroughly pre- and post- medication administration. IVP given by RN. Information reviewed with patientand spouse including reason for taking this medication. Verbalizes understanding. --03:03/09/21 Odessa Freitas R.N.03:03/09/21. Temp: 99 F. --03:03/09/21 Zion Freitas R.N.( MOLST completed. Pt requests to be DNR/DNI.). --03:03/09/21 Zion Freitas R.N.The patient is calm and resting quietly. --04:03/09/21 Zion Freitas R.N.04:00 03/09/21. BP: 116/59. MAP: 78. HR: 85. RR: 17. O2 saturation: 98%. --04:03/09/21 Zion Aden R.N.04:03/09/2021 Started bag #1 1000 mL IV Fluids NS; at 100 mL/hr via site #1 via IV pump. Allergiesverified and confirmed 5 rights. IV patency established. IV site checked: no pain, redness, or swelling. IVflushed thoroughly pre- and post- medication administration. Information reviewed with patient includingreason for taking this medication. Verbalizes understanding. --04:49 03/09/21 Zion Freitas R.N.04:03/09/2021 IV Fluids NS via IV site #1 Discontinued: completed. Total amount infused: 1000 mL.--04:49 03/09/21 Zion Freitas R.N.04:52 03/09/2021 Morphine IVP 4 mg given over 2 minute(s) via site #1. Junito allen verified and confirmed 5rights. IV patency established. IV site checked: no pain, redness, or swelling. IV flushed thoroughly pre-and post-medication administration. IVP given by RN. Information reviewed with patient including reasonfor taking this medication and sedative warning. Verbalizes understanding. --04:57 03/09/21 Zion Aden R.N.( Reports some nausea, states that she thinks it is coming from her increased pain. Order rec'd for painmeds, pt given additional warm blanket and fresh gown/emesis bag after using BSC.). --04:59 03/09/21Zion Freitas R.N.04:57 03/09/21. BP: 105/71. MAP: 82. HR: 79. RR: 20. O2 saturation: 95%. Pain level now: 04/04.--04:59 03/09/21 Zion Freitas R.N.Patient ID band checked for patient name and birthdate: patient confirmed. Blood samples drawn withVacutainer by nurse ; labeled in presence of the patient: green and yellow top. MediPort accessed. Initialblood discarded. Line flushed with 10 mL normal saline post blood draw. --05:57 03/09/21 Zion Fisher R.N.05:57 03/09/21. BP: 113/54. MAP: 73. HR: 83. RR: 16. O2 saturation: 95%. --05:57 03/09/21 Zion Aden R.N. 6 Clinical Report - Nurses [facility] Emergency Department [address] [place] [address] Phone #: ext- [phone] 03/08/2021 22:19 Patient: BEATRIZ CASTANEDA Sex: F : 1945 Age: 75y 06:46 03/09/21. BP: 137/68. MAP: 91. HR: 89. RR: 20. O2 saturation: 96%. Temp: 99.1 F. Pain level now: 02/02. --06:49 03/09/21 Zion Freitas R.N. ( OOB to [facility] then had increased nausea. notified. Order rec'd for Phenergan 12.5mg IV drip. Transfer arrangements underway. Pt requesting LCSR to transport as [facility] is unable to have ALS crew until 8am.). --06:49 03/09/21 Zion Freitas R.N. 06:40 03/09/2021 Started 12.5 mg of Phenergan (Promethazine HCl) Drip IV in bag #1 50 mL; at 200 mL/hr via site #1. via IV pump. Allergies verified and confirmed 5 rights. IV patency established. IV site checked: no pain, redness, or swelling. IV flushed thoroughly pre- and post- medication administration. Information reviewed with patient including reason for taking this medication and sedative warnings. Verbalizes understanding. --06:52 03/09/21 Zion Freitas R.N. 06:55 03/09/2021 Phenergan Drip IV via IV site #1 Discontinued: completed. Total amount infused: 50 mL. IV patency established. IV site checked: no pain, redness, or swelling. IV flushed thoroughly. --07:05 03/09/21 Zion Freitas R.N. Care transferred and report given (TJ). --07:06 03/09/21 Zion Freitas R.N. 07:23 03/09/21. Critical value relayed by luis. Critical value received by nia. wbc 0.1. Critical value read back. Verified lab result and patient ID. ED physician notifed of critical value. No action is required. --07:28 03/09/21 Nia Alvarado R.N.DISPOSITION / DISCHARGE 07:35 03/09/21. BP: 129/64. MAP: 85. HR: 92. RR: 16. O2 saturation: 97% on room air. Temp: 98.3 F (temporal). Pain level now: 03/04. --07:50 03/09/21 Kulwant Holley RN 07:20 03/09/2021 Phenergan Drip IV via IV site #1 Response: symptoms have improved the patient feels better. --07:50 03/09/21 Kulwant Holley RN 07:35 03/09/2021 Site #[address] upon transfer; patent, no pain and no signs of infection or infiltration; flushes easily. --07:51 03/09/21 Kulwant Holley RN 07:35 03/09/2021 IV Fluids NS via IV site #1 Continued: upon transfer at the rate of 100 mL/hr. 725 mL remaining bag #1. IV patency established. IV site checked: no pain, redness, or swelling. IV flushed thoroughly. --07:51 03/09/21 Kulwant Holley RN 07:40 03/09/21. Departure time: 07:40 03/09/2021. Transferred to [facility]. Provided to EMS. Transported via ambulance by regional flatbed truck driver with monitor, IV and mask. --07:50 03/09/21 Kulwant Holley RN. 7 Clinical Report - Nurses [facility] Emergency Department [address] [place] [address] Phone #: ext- [phone] 03/08/2021 22:19 Patient: BEATRIZ CASTANEDA Sex: F : 1945 Age: 75yLocked/Released at 03/09/2021 11:36 by Kulwant Holley RN Name Value Range Interpretation Code Description Data Che rce(s) Supporting Document(s) ID Date Data Source [id number] 0001 03/08/2021 10:20:00 PM EDT [facility] 1 Clinical Report - Physicians/Mid Levels [facility] Emergency Department [address] [place] [address] Phone #: ext- [phone] 03/08/2021 22:19 Patient: BEATRIZ CASTANEDA Sex: F : 1945 Age: 75y Time Seen: 22:58 03/08/2021; initial patient contact. Arrived- By private vehicle. Historian- patient. Disposition decision: 06:33 03/09/2021.HISTORY OF PRESENT ILLNESS Chief Complaint: MUSCLE ACHES, BACK PAIN and WEAKNESS mouth pain. This started yesterday and is still present and worsening. It was gradual in onset and has been constant. At its maximum, severity described as severe. When seen in the E.D., severity described as severe. Modifying factors- worsened by movement. Not relieved by anything. The patient has had loss of appetite, fatigue, muscle aches and weakness. 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 Barnes ; pt returns tonight because of diffuse pain, mouth pain, sinus pain, weakness, loss of appetite, no fever). Similar symptoms previously. Patient has had similar symptoms occasionally. Recent medical care: The patient was seen recently at this facility. ( this am).REVIEW OF SYSTEMSNo fever, sore throat, sinus drainage, nasal congestion or cough. No difficulty breathing, chest pain,abdominal pain, diarrhea or black stools. No bloody stools, chills, difficulty with urination, skin rash or calfpain. No blackouts or double vision. The patient has had moderate nausea and back pain, mild vomiting.The vomiting has occurred only once and a mild headache. She has had difficulty with ambulation. Allother systems reviewed and are negative.PAST HISTORYSee nurses notes. Problems: Breast Cancer. Coronary Artery Disease. B Cell Lymphoma. Neutropenia. Renal Colic. Weakness. Sleep Apnea. Vomiting. Dehydration. Carotid Artery Disease. 2 Clinical Report - Physicians/Mid Levels [facility] Emergency Department [address] [place] [address] Phone #: ext- [phone] 03/08/2021 22:19 [id number] Sex[facility] F : 1945 Age: 75y Hypercholesterolemia. Hypokalemia. Hypertension. Additional Surgeries: Carotid Surgery. Infusa port placement. Mastectomy. (25 YEARS AGO) OPEN HEART SURGERY. Medications: Allopurinol Oral (Tablet 300 mg) 1 tablet, daily. Aspirin Oral (Tablet Chewable 81 mg) 1 tablet, daily. Ergocalciferol Oral (Capsule 1.25 MG (68995 UT)) 1 capsule, monthly (1st of the month). HydroCHLOROthiazide Oral (Tablet 25 mg) 1 tablet, daily every AM. HYDROmorphone HCl Oral (Tablet 2 mg) 1 tablet, q4h as needed, moderate to severe pain. Lovaza Oral (Capsule 1 gm) 2 capsules, 2x a day. Metoprolol Tartrate Oral (Tablet 25 mg) 1/2 tablet, 2x a day. Prochlorperazine Maleate Oral (Tablet 10 mg) 1 tablet, q6h as needed, nausea vomiting. Simvastatin Oral 20 mg, daily at bedtime. Sulfamethoxazole- Trimethoprim Oral (Tablet 800-160 mg) 1 tablet, 2x a day (saturday). Tylenol Oral (Tablet 325 mg) 2 tablets, q4h as needed, mild pain. Zofran Oral (Tablet 4 mg) 1 tablet, q6h as needed, nausea. Allergies: Penicillins. (BREAKOUT x1).SOCIAL HISTORYNever smoker. No alcohol use or drug use.ADDITIONAL NOTESThe nursing notes have been reviewed with agreement regarding the chief complaint, HPI, ROS, PMH andpatient medications and allergies.PHYSICAL EXAMVital Signs: 03/08/2021 22:21 BP: 155/84. MAP: 107. HR: 74. RR: 16. O2 saturation: 99%. Temp: 98 F.Pain level now: 06/04. Have been reviewed. Oxygen saturation normal.Appearance: Appears to be in pain. Patient in moderate distress. Distress appears due to pain.Eyes: Pupils equal, round and reactive to light. Eyes normal inspection.ENT: Nose normal. Moderately dry mucous membranes present.Neck: Normal inspection. Mild right anterior neck and mild right posterior neck and mild left anterior neckand mild left posterior neck lymphadenopathy present. Neck supple.CVS: Normal heart rate and rhythm. Heart sounds normal. Pulses normal.Respiratory: No respiratory distress. Painless inspiration. Breath sounds normal. Chest nontender.Abdomen: No visible injury. Soft and nontender. Bowel sounds normal. No organomegaly. No mass. 3 Clinical Report - Physicians/[facility] Emergency Department [address] [place] [address] Phone #: ext- [phone] 03/08/2021 22:19 Patient: BEATRIZ CASTANEDA MRN: [id number] [id number] Sex: F : 1945 Age: 75y Femoral pulses equal. Back: Normal inspection. Skin: Skin warm and dry. Normal skin color. No rash. Normal skin turgor. Extremities: Extremities exhibit normal ROM. No lower extremity edema. Neuro: Oriented X 3. No motor deficit. No sensory deficit.LABS, X-RAYS, AND EKGChest X-ray: No acute disease. Views: AP ( portable). Technique: good. The X-rays were interpretedcontemporaneously by me. Interpretation time: 23:58 03/08/2021.Laboratory Tests: Laboratory tests have been ordered, with results reviewed and considered in themedical decision making process. Electrolyte Panel: (REINA: 03/09/2021 05:55) ( MsgRcvd 03/09/2021 06:37) Final results Test Result Flag Units (Reference) SODIUM 131 L mEq/L (134 - 153) POTASSIUM 3.8 mEq/L (3.6 - 5.0) CHLORIDE 99 mEq/L (98 - 107) CO2 27 MEQ/L (22 - 30) Electrolyte Panel: (REINA: 03/09/2021 01:55) ( [facility] 03/09/2021 02:23) Final results Test Result Flag Units (Reference) SODIUM 130 L mEq/L (134 - 153) POTASSIUM 3.7 mEq/L (3.6 - 5.0) CHLORIDE 98 mEq/L (98 - 107) CO2 26 MEQ/L (22 - 30) Chest Portable 1 View: (REINA: 03/08/2021 23:25) ( [facility] 03/09/2021 00:10) In Progress CHEST PORTABLE Reason(s): neutropenia, weakness TRANSPORTATION: IV? O2? Oxygen?(No) Room: ED CBC w Diff: (REINA: 03/08/2021 23:37) ( [facility] 03/09/20 21 01:06) Final results Test Result Flag Units (Reference) CBC W/AUTOMATED DIFF COMPLETE BLOOD COUNT WBC 0.1 LL 10/uL (4.2 - 11.0) CALL/ READ BACK OSWALD LUCAS/ ER BY: [place] DATE/TIME 03-09-21 1:03AM RBC 2.80 L 10/uL (4.20 - 5.40) HEMOGLOBIN 9.1 L g/dL (12.0 - 16.0) HEMATOCRIT 25.1 L % (37.0 - 47.0) MCV 89.6 fL (81.0 - 101) MCH 32.5 pg (27.0 - 34.0) MCHC 36.3 H g/dL (31.0 - 36.0) RDW 11.3 L % (11.5 - 14.5) PLATELETS 43 L 10/uL (150 - 450) MPV 10.4 fL (7.4 - 10.4) %NRBC 0.0 % (0.0 - 0.0) #NRBC 0.00 10/uL (0.00 - 0.00) MANUAL DIFF SEE BELOW SEGS 6 L % (37 - 80) 4 Clinical Report - Physicians/Mid Levels [facility] Emergency Department [address] [place] [address], [place] [address] Phone #: ext- [phone] 03/08/2021 22:19 Patient: BEATRIZ CASTANEDA Sex: F : 1945 Age: 75y %LYMPH 90 H % (25 - 40) %EOS 2 % (0 - 7) 50 CELL COUNT DIFFERENTIAL DONE. RBC MORPH SEE BELOW HYPO 1+ A (NORMAL: NONE { SICKLE CELL (NORMAL: NONE SEEN ) PLT EST DECREASED A (NORMAL: MARY ELLEN COMMENT: 0 03/09/21.0102.LBS.CMP: (REINA: 03/08/2021 23:37) ( MsgRcvd 03/09/2021 00:01) Final results Test Result Flag Units (Reference) COMPREHENSIVE METABOLIC PANEL COMPREHENSIVE METABOLIC PANEL SODIUM 126 L mEq/L (134 - 153) POTASSIUM 3.6 mEq/L (3.6 - 5.0) CHLORIDE 93 L mEq/L (98 - 107) CO2 26 MEQ/L (22 - 30) GLUCOSE 123 H MG/DL (70 - 99) BUN 12 MG/DL (7 - 21) CREATININE <0.4 L MG/DL (0.7 - 1.5) BUN/CREAT 40 H (8 - 27) TOTAL PROTEIN 5.8 L G/DL (6.3 - 8.2) ALBUMIN 3.2 L G/DL (3.9 - 5.0) GLOBULIN 2.6 GM/DL (2.4 - 3.2) A/G RATIO 1.2 (0.8 - 2.0) CALCIUM 8.7 MG/DL (8.4 - 10.2) TOTAL BILI 1.3 MG/DL (0.2 - 1.3) ALKALINE PHOS 60 U/L (38 - 126) SGOT/AST 9 U/L (5 - 40) SGPT/ALT 12 U/L (7 - 56) ANION GAP 7.0 L mmol/L (8.0 - 16.0) AGE 75 yrs NON-AA GFR >60 mL/min AFR AMER GFR >60 Male GFR Interpre ntation 20-49 yrs >60 mL/min [id number] yrs >56 mL/min Normal 60-69 yrs >49 mL/min Normal 70-79yrs>42 mL/min Normal 80 and above >35 mL/min Normal Female GFRInterpretation 20-39 yrs >60 mL/min Normal 40-49 yrs >58 mL/minNormal 50-59 yrs >51 mL/min Normal 60-69 yrs >45 mL/min Thjpti76-17 yrs >39 mL/min Normal 80 and above >32 mL/min NormalLactic Acid: (REINA: 03/08/2021 23:37) ( MsgRcvd 03/09/2021 00:01) Final results Test Result Flag Units (Reference) LACTIC ACID 1.2 MMOL/L (0.2 - 2.2)COVID-19 CAH: (REINA: 03/08/2021 23:37) ( MsgRcvd 03/09/2021 00:12) Final results Test Result Flag Units (Reference) COVID-19 NOT DETECTED COVID-19 REENTER NOT DETECTED { PROCEDURAL CONTROL VALID KIT LOT # _[id number]____ 03/09/21.0011.LBS. . . KIT EXP DATE _[id number] 27/15/21.0011.LBS. . . NORMAL RANGE IS NOT DETECTEDNEGATIVE RESULTS 5 Clinical Report - Physicians/Mid Levels [facility] Emergency Department [address] [place] [address] Phone #: ext- [phone] 03/08/2021 22:19 Patient: BEATRIZ CASTANEDA Sex: F : 1945 Age: 75y SHOULD BE TREATED PRESUMPTIVE AND, IF INCONSISTENT WITHCLINICAL SIGNS AND SYMPTOMS OR NECESSARY FOR PATIENT MANAGEMENT, SHOULD BETESTED WITH DIFFERENT AUTHORIZED OR CLEARED MOLECULAR TESTS. NEGATIVE RESULTSDO NOT PRECLUDE SARS-CoV-2 INFECTION AND SHOULD NOT BE USED THE SOLE BASISFOR PATIENT MANAGEMENT DECISIONS..PROGRESS AND PROCEDURESCourse of Care: 01:19 03/09/21. CBC results shows pancytopenia, severe neutropenia at 6, was 9.1 thisam; CMP shows hyponatremia, lactic nml, CXR nml, called made out to [facility], waiting for hospitalist; ivfluids and levofloxacin iv given 01:45 03/09/21. Dr. Conway, hospitalist at [facility], called back and case discussed as well as lab values; she requested repeat electrolyte before transfer because of her hyponatremia 126 (133 this am) 02:40 03/09/21. repeat Na 130; Dr. Conway made aware; Cuco, nursing supervisor hot dip tinning, says they will have an oncology bed at 7:[address] Conway wants her in an oncology bed; will transfer out after 6 am; will repeat CBC and electrolyte before transfer per Dr. Conway; pt made aware and agrees 03:09 03/09/21. Mrs. Castaneda wants to have DNR/DNI status, MOLST form filled out and signed; pt consented and was able and capable to 03:49 03/09/21. pt doing better, calmer on stretcher, less pain and nausea 06:32 03/09/21. CBC, electrolytes repeated at about 6 am, waiting for results; transport will be here in 45 min, pt doing well, pain controlled 06:51 03/09/21. Na is now 131, waiting for CBC result. Critical care performed (90 minutes). Time is exclusive of separately billable procedures. Time includes: direct patient care, patient reassessment, coordination of patient care, interpretation of data (laboratory data), medical consultation and documentation of patient care- see progress notes. Patient and spouse counseled in person regarding the patient's serious condition, test results, diagnosis and need for transfer. Patient and spouse agrees with plan of care. Disposition: Benefits, risks and alternatives to transfer explained to patient and spouse. Transferred to [facility]. Summary of care (CCDA) provided to transport team, patient and transfer facility. Condition: stable and serious.CLINICAL IMPRESSION Neutropenia associated with cancer chemotherapy. Moderate hyponatremia. B-cell Lymphoma S/P recent Chemotherapy; Pancytopenia. 6 Clinical Report - Physicians/Mid Levels [facility] Emergency Department [address] [place] [address] Phone #: [phone] 03/08/2021 22:19 Patient: BEATRIZ CASTANEDA Sex: F : 1945 Age: 75y(Electronically signed by Danilo Black M.D. 03/10/2021 07:42) Name Value Range Interpretation Code Description Data Che rce(s) Supporting Document(s) ID Date Data Source [id number] 03/10/2021 10:04:51 AM EDT [facility] Name Value Range Interpretation Code Description Data Che rce(s) Supporting Document(s) WBC 0.1 10*3/uL (4.1-11.0) L [facility] [place] ALERTED CRITICAL RESULT ZHENG([id number]) 3[place]2 [place] [address] ON 03/10/21 [place] [address]902 [place] [id number] RBC 2.44 10*6/uL (4.00-5.40) L [facility] HGB 7.8 g/dL (12.0-16.0) [facility] HCT 22.6 % (36.0-47.0) [facility] MCV 92.6 fL (80.0-95.0) [facility] MCH 31.9 pg (27.0-32.0) [facility] MCHC 34.5 g/dL (32.0-36.0) [facility] RDW 12.1 % (10.5-14.5) [facility] PLT 26 10*3/uL (150-450) [facility] MPV 9.1 fL (7.1-10.7) [facility] NEUT % 10.0 % (35.0-75.0) [facility] LYMPH % 80.0 % (16.0-52.0) [facility] MONO % 10.0 % (0.0-8.0) [facility] NEUT # 0.0 10*3/uL (1.8-7.7) [facility] LYMPH # 0.1 10*3/uL (1.2-4.8) [facility] MONO # 0.0 10*3/uL (0.0-0.8) [facility] TOTAL CELLS COUNTED 10 [facility] ID Date Data Source [id number] 03/10/2021 09:40:38 AM EDT [facility] Name Value Range Interpretation Code Description Data Che rce(s) Supporting Document(s) SODIUM 135 mmol/L (136-145) L [facility] POTASSIUM 3.5 mmol/L (3.6-5.2) [facility] CHLORIDE 101 mmol/L (100-108) [facility] CO2 26 mmol/L (22-31) [facility] ANION GAP 8 mmol/L (7-16) [facility] UREA NITROGEN 7 mg/dL (7-24) [facility] CREATININE 0.18 mg/dL (0.60-1.00) L [facility] BUN/CREAT RATIO 38.9 RATIO (10.0-20.0) [facility] GLUCOSE 92 mg/dL (70-99) [facility] CALCIUM 7.5 mg/dL (8.4-10.2) [facility] GFR >60 ml/min/1.73m2 (>59) [facility] GFR ( AMER) >60 ml/min/1.73m2 (>59) [facility] GFR INTERPRETATION [facility] --NORMAL KIDNEY FUNCTION OR MILD DISEASE - GFR >OR= 60CHRONIC KIDNEY DISEASE - GFR 15 - 59RENAL FAILURE - GFR <15 Est. GFR calculation based on the MDRDstudy equation, which assumes a steadystate for creatinine. Est. GFR should notbe used for medication dosing. ID Date Data Source [id number] 03/09/2021 10:57:40 PM EDT [facility] NT INFORMATIONPatient MRN Name Date of Age Gend*PT [id number] Beatriz Castaneda 1945 75 years F IPPT Location Admission Date/Time Visit ID Attending [id number] 03/09/21 0937 --- ZANE Castillo BS([id number]) EPI ID CSN Admitting Provider [id number] DEEPIKA Castillo([id number]) Attestation signed by Aston Urrutia MD at 03/09/2021 10:57 PMI saw and evaluated the patient and reviewed Ms. Hobbs's note. I agree withthe history, physical and medical decision making with the following additions,exceptions, and/or observations:Ms. 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 She received neulasta on 03/02/21. She was admitted with facial andabdominal pain. She is neutropenic with shaking chills prior to admissionwithout fevers.PE:In NADHEENT: thrush on tongueChest: Left base ralesCardio: RRR, normal S1, S2ABD: lower pelvic mass palpable.EXT: no edemaA/P: Neutropenia is due to chemotherapy. Awaiting recovering. No need foradditional growth factors as she already received neulasta. 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 She received neulasta growthfactor support in our office on 03/02/21. Her CSF cytology came back negative formalignancy as did her bone marrow. She tolerated her first cycle fairly wellwith facial pain being her biggest complaint, controlled with narcotics. Atthis time, she would not be due for another cycle of therapy until approximately03/18 with the plan for q21 days likely for 6 cycles with restaging studies after2-3 cycles are complete.2) Neutropenia- Pt has not had any documented fevers, however she did repo rtshaking chills over the 24hrs [facility]. Weagree with aggressive broad spectrum antibiotics along with full infectiouswork-up including CT facial bones, abdomen/pelvis for pain as well as bloodcultures, UA, and CXR. No neupogen is warranted as she did receive neulasta inour office on 03/02 and I expect her bone marrow to start recovering in the nextweek.3) Facial pain- It seems that this began shortly after her 5 days of high dosesteroids so I am considering whether this may be a sort of rebound pain fromlack of strong anti-inflammatory agents. Regardless, she has a large massoccupying a small area and needs to have adequate pain control in the interimwhile the chemotherapy begins to shrink the tumor. Agree with morphine anddilaudid to titrate to adequate pain control.4) Abd pain- She reports this is new and although she has not had a BM in 8days, feels this is a different pain then that typically associated with herconstipation. She reports this more as burning. Having said that, agree withCT abd/pelvis to evaluate especially given the rather large firm mass felt inthe lower pelvic area ? Urinary retention, stool ball? Unfortunatley, the painmeds are only going to make constipation worse, however we could use relistor ifneeded for opiate induced constipation. HPI: Pt reports that for the last 24 hrs or so her facial pain became severe,not responding to her normal doses of morphine. She also reports abdominal painwhich is new for her. She continues to have trouble swallowing some solids buthas been to get some food down along with fluids. She denies any fevers,however does report some shaking chills over the last 24 hrs. Denies anyurinary symptoms. Reports constipation x 8 days. Has minimal nausea, novomiting.Hemonc Hx:Ms. Castaneda was originally evaluated in [place], [place] after shedeveloped acute onset sinus pressure and hearing loss in her right ear in November2020. Prior to this time, she had been in her usual state of health. 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 [facility] and facial pain where shewas admitted on 02/21/21 and evaluated by oncology who recommended transfer [facility] for inpatient chemotherapy. Staging scans at [facility] 02/22/21 showed a large nasopharyngeal massmeasuring 7.2x3.6x4.8cm toward the right invading the retropharyngeal andprevertebral spaces and encircling the distal cervical right ICA. There wasalso found to be bulky right cervical adenopathy measuring up to 5.5cm. Therewas no evidence of disease in the chest, abdomen, or pelvis on scans. [facility]. Following transfer she underwent a TTE which showed a normal LVEF of 60%, bonemarrow biopsy with aspirate which was negative for involvement of her lymphoma,and had a PICC line placed. Her diagnosis was reviewed with her and treatmentoptions were discussed. Given the status of her DBLCL with double hit featuresand del17p, in the setting of an ECOG PS < 2, she was offered da-EPOCH-R whichshe agreed to proceed with. Cycle 1, day 1 of therapy began on 02/25/21 with Rituxan 375 mg/m2 x 1. She wasalso placed on Solumedrol 80 mg BID x 5 days (02/25-03/01/21) per neri tmentprotocol. Etoposide 50 mg/m/2/day x 4 days + Vincristine 0.4 mg/m2/day x 4days + Doxorubicin 10 mg/m2/day 4 days was given from 02/26-03/01/21. She receivedCytoxan 750 mg/m2 x 1 on day 5 of therapy. Allopurinol was started beforetreatment to limit risk of tumor lysis. Because she had a high OPERATIONS TRAINER-IPI score,she has also been offered OPERATIONS TRAINER prophylaxis with IT methotrexate which was given03/01/21, CSF analysis at that time was negative for a malignancy. Beatriz tolerated chemotherapy well with no untoward effects. Labs were monitoredclosely and showed no evidence of gross organ dysfunction or tumor lysis. Usama had intermittent pain in her head and face and this was controlled with IVmorphine (2 mg) and PO Dilaudid (2 mg). She was given dilaudid upon dischargefor pain control. On 03/01/[address] max/facial bones with IV contrast was performed as she wasexperiencing ongoing pain. The image continued to show abnormal thickening ofnasopharyngeal soft tissues and cervical adenopathy, but it appeared that therehad already been a positive response to therapy as the largest node measured 1.3cm. Additional note was mentioned of fluid in the right ear cavity and rightmastoid effusion. She reported she had a tube placed in her right ear by ENT inthe recent past. No bony erosion was seen. Prior to discharge, she had a port placed. ON 03/02/21 upon discharge shepresented to [facility] for her neulasta injection.Past Medical History:Past Medical History:Diagnosis Date Hypercholesterolemia HypertensionPast Surgical History:No past surgical history on file.Medications:Medications Prior to AdmissionMedication Sig Dispense Refill Last Dose acetaminophen (TYLENOL) 325 MG tablet Take 2 tablets (650 mg total) by mouthevery 4 (four) hours as needed (mild pain) 30 tablet 0 allopurinol (ZYLOPRIM) 300 MG tablet Take 1 tablet (300 mg total) by mouthdaily 30 tablet 1 aspirin 81 MG chewable tablet Chew 81 mg every morning hydrochlorothiazide (HYDRODIURIL) 25 MG tablet Take 25 mg by mouth everymorning HYDROmorphone (DILAUDID) 2 MG tablet Take 1 tablet (2 mg total) by mouth every4 (four) hours as needed (moderate to severe pain) Max Daily Amount: 12 mg 60tablet 0 metoprolol tartrate (LOPRESSOR) 25 MG tablet Take 12.5 mg by mouth 2 (two)times a day 1/2 tab BID omega-3 acid ethyl esters (LOVAZA) 1 g capsule Take 2 g by mouth 2 (two) timesa day 2 capsules AM and 2 Capsules PM ondansetron (ZOFRAN-ODT) 4 MG disintegrating tablet Take 4 mg by mouth every 6(six) hours as needed for nausea prochlorperazine (COMPAZINE) 10 MG tablet Take 1 tablet (10 mg total) by mouthevery 6 (six) hours as needed 30 tablet 1 simvastatin (ZOCOR) 20 MG tablet Take 20 mg by mouth nightly sulfamethoxazole-trimethoprim (BACTRIM DS,SEPTRA DS) 800-160 MG per tabletTake 1 tab by mouth twice daily every Saturday, Saturday, Saturday 24 tablet 1 vitamin D, Ergocalciferol, 1.25 MG (55883 UT) CAPS Take 1 capsule by mouthevery 30 (thirty) days I capsule 1st of the month PMAllergies:PenicillinsFamily History:Family HistoryProblem Relation Age of Onset Breast cancer Sister Pancreatic cancer BrotherSocial History:Social HistoryTobacco Use Smoking status: Never Smoker Smokeless tobacco: Never UsedSubstance Use Topics Alcohol use: Not Currently Drug use: NeverReview of Systems:All systems were reviewed and found negative except for those mentioned in theHPI.Physical Exam:Temp: [98.9 F] 98.9 FHeart Rate: [91-95] 91Resp: [17-18] 18BP: (131-140)/(66-75) 131/66Pleasant, comfortable, not in acute distress.Awake, alert, oriented times 3.Moves all extremities.General appearance: alert, appears stated age and cooperativeEyes: conjunctivae/corneas clear. PERRL, EOM's intact. Fundi benign., EOMI,sclerae anictericThroat: difficulty opening her mouth due to mass, thrush noted on her tongueLungs: right lower lobe rales, otherwise CTA without wheezes, rhonchiHeart: regular rate and rhythm and S1, S2 normalAbdomen: firm, mass noted in the lower pelvis area, approximately size of anapple, NT on palpation, NT, ND +BSExtremities: no calf pain, erythema, edemaNeurologic: Grossly normalLabs, Imaging and Other Diagnostics:Diagnostic tests reviewed:CBC with Diff:Lab ResultsComponent Value Date WBC 0.1 (LL) 03/09/2021 RBC 2.65 (L) 03/09/2021 HGB 8.6 (L) 03/09/2021 HCT 24.7 (L) 03/09/2021 MCV 93.2 03/09/2021 MCH 32.4 (H) 03/09/2021 MCHC 34.7 03/09/2021 RDW 12.1 03/09/2021 PLT 35 (L) 03/09/2021 MPV 9.6 03/09/2021 LYMPHOPCT 100.0 (H) 03/09/2021 MONOPCT 1.7 03/02/2021 EOSPCT 0.1 03/02/2021 BASOPCT 0.2 03/02/2021 NEUTROABS 5.1 03/02/2021 MONOABS 0.1 03/02/2021 BASOSABS 0.0 03/02/2021MP:Lab ResultsComponent Value Date NA 135 (L) 03/09/2021 K 4.1 03/09/2021 CL 103 03/09/2021 CO2 26 03/09/2021 ANIONGAP 6 (L) 03/09/2021 BUN 11 03/09/2021 CREATININE 0.31 (L) 03/09/2021 BCR 35.5 (H) 03/09/2021 GLU 91 03/09/2021 CALCIUM 7.8 (L) 03/09/2021 ALBUMIN 2.4 (L) 03/09/2021 GLOB 2.8 03/09/2021 AGRC 0.9 03/09/2021 ALKPHOS 62 03/09/2021 LABBILI 1.1 (H) 03/09/2021 AST 8 (L) 03/09/2021 ALT 17 03/09/2021 GFRAA >60 03/09/2021 GFRNONAA >60 03/09/2021ignature: Terri Hobbs, PAHematology/Oncology Associates of [phone]: March 09, 2021Time: 4:12 PM Name Value Range Interpretation Code Description Data Che rce(s) Supporting Document(s) ID Date Data Source [id number] 03/10/2021 01:06:38 AM EDT [facility] Name Value Range Interpretation Code Description Data Che rce(s) Supporting Document(s) URN CULTURE HOLD [facility] FOR ADD ON CULTURE ID Date Data Source [id number] 03/09/2021 02:39:00 PM EDT [facility] [address] [place] [address] PHONE: [phone] FAX: [phone] Name .................. : TONYA HENDERSON Acct Number.................. : [id number] ROOM. ................. : [address] Number ................... : [id number] Stay type ............. : E/R Discharge Date......... ... : 03/09/21 Admit Date ....... .. : 03/08/21 Admit Phys .................... : SOFIA JEFFREY Date of ....... : 1945 Family Phys ................... : JUAN PABLO JAMIL Phone .................. : [phone] Age ................................ : 75 Film# .................. .:[id number] Sex ................................. : F Unsigned transcriptions are preliminary reports and do not represent a medical or legal document CHEST PORTABLE [id number] COMPLETE:03/09/21 00:10 DLA 70319 Reason(s): neutropenia, weakness PORTABLE CHEST, 03/09/21: CLINICAL HISTORY: A 75-year-old female with neutropenia and weakness. Comparison: Chest radiograph from 02/24/2018. FINDINGS: The cardiomediastinal silhouette is unchanged. Patient is status post median sternotomy. A left chest wall Mediport is seen in place. No consolidations, pleural effusions, or pneumothorax. A 0.6 cm right lower lobe lung nodule is noted, new since prior exam. No acute osseous abnormalities. IMPRESSION: No acute pulmonary disease. A 0.6 cm lung nodule is seen in the right lower lung. Elec tronically Reviewed and Signed By Gerry Escobedo MD , 03/09/21 14:39, GIOVANI Transcribe Initials: SSR, Transcribe Date: 03/09/21 08:17, Dictation Date: Copy for: JUAN PABLO LOOMIS via fax Copy for: EMERGENCY DEPT via modem Copy for: 710 MED REC Page 1 of 2 [facility] [address] [place] [address] PHONE: [phone] FAX: [phone] Name .................. : TONYA HENDERSON Acct Number.................. : [id number] ROOM. ................. : TR-07 MR Number ................... : [id number] Stay type ............. : E/R Discharge Date......... ... : 03/09/21 Admit Date ......... : 03/08/21 Admit Phys .................... : SOFIA JEFFREY Date of ....... : 1945 Family Phys ................... : JUAN PABLO JAMIL Phone .................. : [phone] Age ................................ : 75 Film# .................. .:[id number] Sex ................................. : F Unsigned transcriptions are preliminary reports and do not represent a medical or legal document CHEST PORTABLE [id number] COMPLETE:03/09/21 00:10 DLA 61626 Reason(s): neutropenia, weakness DISCHARGED Page 2 of 2 Name Value Range Interpretation Code Description Data Che rce(s) Supporting Document(s) ID Date Data Source [id number] 03/09/2021 02:32:12 PM EDT [facility] Name Value Range Interpretation Code Description Data Che rce(s) Supporting Document(s) EKG [facility] IMZOBl7gNlBTJiPdp0JiZgDcZSWhMG3qkej5J7D1vVOpY1QmuCZut1tfR3NzR2LdMKAbNRJKLL1WrRIw jb2 OzezljA0Ivf1BXy493FV0MwV2yoh8Lu3bbEOLaoObaPg7eyzKyUhuJKHM6FEHde8TcBYlzOYymJFFaUm 9xxQDjL1FxgTimFCPlXUepMKPqI67xmDYxE5oJJANcTF7ru2FshgueR8eykiDsw3sVfbLhXQrjDvYrAx OzIZByihExK0sdcGHlxRtdRJ1+SM8ue4ZbJmXsJUZd AG1fghn0D6Z8aHDiX5IlvrFsL7O4JmJ2iSKuS9T0iJXbUT6NAI3vVF2BGqGlG4IhU30grE7yYC7KyV6M gwYoWM9el5FfvyewJ9Tpu7UTw934UP0XKOr2VPUdL2QlRb2pTW0+ES3nv9KmNkRkWQSrEL4ivaj3P1H6 aWGsK0NspvZxN6T6WdY0vFBxF1Z2eDYuYQ7PFZ6qSZ 4MMSJyE8TmE57ygL8bKA8GwA5ZbuTgIV0wl2GmsjgnS2Bwu9XTq156VZ2KVKb0VUBbH3BsP1NtbLY0QG 4+CL7dt6XuIhNqPWQbFM3njer0T2Z0dTWqK9HjeeEnW7G9HsV1fEGfI7J2ySDzED6MGI2lFW0RWfxuL3 PdY78rnB2bZF7DfZ2TwjFnRT8kr3XdqphzY4Noi6YC a937EZ7ERHx6PWXjH6NmDr1mGF5fpKcaiMY+BgShAK1gscvfHNHlZSUlOvg1RA3DsWBvCU7Qu107MW6D nUN0xUCaYG7FbENeATFzWzNkVVEwC6XtSP6BkxWzCLahXtZdN2hmLB6eeOJxA94ffU1yIY8GPESpJw7c uKVmD897jzdfeg2+JR1ka6ZnXuVtYaPzLT1dgwa9Q5 Y7jOVvB1ZcsdUlR3I2ZvE3sBOjZ5G4kOFlAH3IVM5cVZ8FFkJaL4AjG36dxQ8jJL4TdC9SkxObUE9nr6 MxjjymS5Qje9MEn721JC7Ee8ZmtDEyOXVymHP+AyZlTE9cumppVZChZWXyHtk9BV8WzWKoOM5Qu317UD 1OhSL6lTAvXI0XgVUbHNVmMgPqTCJwD3oiXS9XpxYt SHwhJsZfU7jrNC6ejGMxG07crG8gOI8QQLUoMr2ewXWaI908tzrbtr4QGtgalFUbOi2kjoOqXrrNRCS1 VUNqd8GrLFypWPamBZNqCr9ldBPmB0EbvRtzEXWmJAodJAZpD46atXEiL6RUVBWoQZ1ls2XiywsjX7mt mwAxf2sFttZdYFapFiBzFxDdCSOwhjLwS6YfuXHcKO AkLm6aSS8xaNetsDE+GpTuXV1vrndhZZCdLYDdBtd8UR8UxEZuSL2Qm774QY1OxRG7pLTvCE5LsQNdPY QuUlRlSYLgXKMpNT4CovZaBUoqQiNmX1sdSJ5xyNWpD60oeQ5dSV8BRIOzEp3vmTQhIQfiSGErHf0pUE 4+JkZeZM7uwrbxHMWlCKBySbi9FX5IgBCqAH4Nc406 BI1EdMU3kSJqEF3UwVVwKKQoLyEeICNtIPWkCF4VrfWzARtuPmHbC8wbQF8maNLcF55dsF3fDN7DYPOw Kz3jqECzWNcrBCSfJt2jNV3+KU8pk5VjLzZvQcYjIU1tmkj0U9B8mKPyQ3NuyhFsL0S0DrJ9jULaX8L0 vOFdHH5ABY3wDW7FJIVtP4LhV89ctL1hDC2GgY3Opb MaTQ3jx6XmqgskH7Sfm0ALh447AD8AsC0vtw4WnEWwyUU+VoKmYA8ltawkCCexJFQiXah4FD5VGDO3PU DxKhRvFMXeZNMpZLAdX2dSZWukSKMMXH1VXmxdEHWgYYRXCM4JUBGfLNNpRZEoJ1LJDKBzIIYcKlHmP2 whFLDxZHAPHS0YIrrnRMAnKFBHVW0HZBJgRPFsDKCs C3WYHUH4GNVoWtRuESyvHAxmBNFMGJ5HJwqlVsStHBI+GvTdUO8ygfchQhEyYD3yorh4F5Gto7ZUEAGv Kv6BLNGxF2JaoRWzOP9Rv116MVW7LCNzMx5+QF5fw3RtEdMxLIIkf8HmONneMPfgVEPnMXUlLWExMVLr rLFAc6djExTwJDA6XUWiLvexHSFyTFYlQU75HFKbKD CAPA8WRLTjuCXfTGNwLyErCSGLMB9Vm186SD45ghXeJZKmCZGhH0LtxKO7SFH4PMUrHY1ut1FnZPfoNv 6apmAcUbwHArQlSPWvXtn7ZGFzTIUyJ0CgGZBkPGO5GyHcLocsiYAfZL3UnBL4YRAfX04cJC2+CnN0cm LafLg9vAw8U+8tu8/s750FfloelDGdIM7zMXXYupL+ XY5IUVAD35Iu/Lw9Qta4+mg/hA6k0bVmoVBfZLnNSfQ9+fR9f8hl3T//XP84a7pmu0//17/9+af4n//2 zwf4/PfnP++L//ef//Svf/6Xf/8il5l2k/71//zzv/7rn/K5rQh9/fI70K5hc/officer captain/7g/f0r//PNvf+LS x+ffv3/+6z/0ZR3CjfDRWnbWqAmco9P4nzFPsHfNRw SwipGeCaNL1s9ONObA3dtPDwZ5RzHtTgj/DP2yu1+PtzmjB5R/9K0VyY2873jJB3v4NabT3g5z1Bzlzj n6ZXe/IcpY120M6Chw/jbgZ233XrUvuuhebe/17ldFv+rdr4p+3jxwDg8fz03c+gYpkbG6s514oyuSc/ mP5O5598bmN+3uV0O/9x8ere85x28S/Dv5zsj89tqy jd509U3Gh/gsf1SxemtLlevehxAvb/vl6Jff/XL0y+9+dfSr3/3q6Fe/+0DFg921j7Hl/e5XR7/6z0zI euOuM9o/+b4nbd57e61U/Il1yim2Mm3+FiHg9G2l2Gh9+jFMo6B1g7Ps16fH9gQ/92ugX+Pu10S/5t2v iG8Pn35P/Hz7bpu8Do8+AsMq9h4j6Oj8+zXRr/nz9e Ln6+7XQr/W3a+Cun68Grx5Vzk/Nmq49s5s1Imo/Vky19b7rnHjcohkdZ/x46k8xYn/iiyNL38Jh0u68z f5+fk6P/w8Pz/n66of7TliD/3wE/45yCXxjdFpq8/0w8/714EOz2U0ThNzEWXwrc0h1IhKDKNcv4gsUT JErNwI9ZjAECOtv98glIRHksTHblMISHjlBpUtpkTU rZ9+hbcHO56ZYPgVChAkxSjse2uQezHqi94Q2Rm83TnNRIK1CRTRvtR+FQlrTOi2j0LfnWKhpiHj5Sfa PRDZ5vTXFdpW+WErhXSl/UIHNiTTnjdJKZNdB9qmdIMBT2TUCIbDT90lRI8ro6dGQioed35WqGy4AA+F 0OA79GzLBhE+GEwhhSk/NTiLzCOuLwAJN5z/Oz+B4E 8/BOMXM0weRPDre86U4mixh9gIBG13WWNOwMz7vZjIQaV+UQ2tgQn/uNnW6IQ+6xGxnz/herSkyK47Y0 hvyg+/LYB42UhfTOVz4yBrYjwO+ST0cSLr/XHpZsWDjetRCyXrM1zkiDtEA4LRYSbWH23rXNcac/EUUp 9dl9gEKI/4TD2DeZb25H9P1kE+fH2h0Ce/3KeQ/JQf 0tZXv5xG/kkhMVMHPAKOcBZRtCnJUGgaYCK6pZwdpLGfAY0IQVBQDy5ukPPKuN91IRaHqi6fDcFx++FD Qu1uJ0sZjQjevz4Q+KI81QTjL5OxBfIfB/hAx2s4hO13gORQ6J4dKmLz++VZNt9cL5rSiEahkc7Z+ZD9 0JQgM7HpCsHhM/xPr8w9uW61kWMH7S713wgN/EZorh JWj3wTAZJtq17lNWihXQ7TmLnE2Izjtt8ZvGRk+A6IGSKcDe6a6YP2m6eLcWk++UVQO3gCAaRrSgqbD2 Y+BT06bIrR8JsHBxgU/fAhIx+gUc4x2XV3h8zBuKg++QHXI1dDBiUpPbxlA3C+JX77tLhF3UtTPblG/f AhIx+gTu6b1MM8s5oSdTe++YBAO6mXQgIiNmugZ6C+ LZ64tZxC4YvNQofC/fAhIx+rQl9y1OM4c2yEoLc++BKKL2qLJfJuPqprN1Z+AW78zEjB1JmBIevA/fAh Ix+cHn8d5CE6e7nKaSb++QJ7GlRa02GIVYCQzRVhdONoxSUYPeISUTKDqEPoKDhHD+HA5Z4lr1r3OioO 3F7cavs6E9wnky2P5hsiP3N0hevEJX1c+1PZn8r+INSPECTOR METAL FABRICATING [file] [id number]/insurance sales agent+jrAwp1sd17SzfdFOP72bxy1vtEr1U5t3kTs7XPsUAaz3x3JROudgR6/0jdr8w4Md 9GSZ2NcVHW++v8XxNOslY7yd3KNp7dzSD9AnBR3ozVO2KFxg8+Dg1MKijjID3dmUx4c+p/hoU9fTxcic Sox0q8rUB6a6FRxbtlx8cMOi2/Z826PstFsFDKqRc5 tkHcvqAVUZAchUWedtqzuIbM1DH6XUU/Ru9LmHqylHzs0In6W8ClrUGL+8oL1hA0jpJN/ddc3IXkEk4S oehzZML2lsyuaXRkA5UU2i0EJbISm0rAv5l/aIcebj7WRhLdXNwbGvyQW6ZP/RzGlPc9tEAK0rUD4mVy WBkljBSgL52N2F8dc+m36/Dm/Y/iqWo4ftkT5n9T98 Dm/AOTd9uBR2qiM10k1D/tAJ4BLCdKhVcX1sNJigYFY7uqmxne9A0N73yxEFq0QFHFEeJJGcwtBZgOsn D2+WyFX1e1z9KIFG7rNb6T6YVopr4ILVF013yNlFLtrKjFL1rCXlO+rfOHnYy4QnUB9DAgRLVvcPn0TI i6jwUtzcmYn8aNyS0Tz9mdITHREOMdnjADYsz3kF2A MRhgrtUx31iUAHbDXUOhy4l5Ahu1bbmpL2dNdGTLcsdCXGOT2d1ZNw5A8V84d5TZtTjNQxrfs+wS9Mes uYOpCk194Tk7TOp5h6F3x7u2FzKO6dSxjgMlyESv2tpDjU1932qi/bZ3V946ippupElPvMCn4B+O5+Fv ZrR0lZnt74GSq2OKuVpWtedXrD+x7Ed/d7EN/d7098 v39zj90qqqIkGayyj30j61zKdrMq42kb78pqxB5dJXbiyw3fjaUO7+R4r3Yo88up6LPMD27t7Prc598z kTtL2h8yVrqlUhD1jDeTmtsksweBLu8rq6laBCbs6xPKA9OZqp9m4L6Py6bTTk4r0BeJuH2zlzy4q3OX /FjFc7C1K60KT3ZT+Is1+rHM6AeUhq5tPu/anHEGc/ cN5lRQzD6A7AqE/fPz538Po6leX90Gn4cqqfA+Ka89loD0m1arRf3+r/Ondemph93iaJTZbx5mPXU46g k3Wr/00i+4eWmjdO296mXbHG3flimOY+KW1apVsutxbIxoK4ga2Eoumkng54g7LGH+vO74bt237HGkgx k38YmHq0MmRlDhsCWSvdGagVL/5u12bo1+laPfaOMa K5p2woEdslKeuQK1g8iu0vjV1C00jcyzrRSRh97qbB38zyf7bhvwBvrhj6xIkXqTuBdGcJpTIn+1K75r F9+3kjgTpSL1oGETmCtotmA3xh64sMPvujKsqX7/c/GlVvmgOT8t+KlT40PXAgbsq3jr/U/7YMkg/TUq VZEGtjwMt9uCI3R5CQcukbowz4QoVCM3sNc62miijp PsWbEJF0qauPtECBq28WPK55m7w32xMNeSQBP1pwq8hl8sLEBFuuBkzDgXqo+DHMbTTC/A5a+SD7s1Xa UvMSSOpReWr6VILqhHR1PXK8tisjXJsFp+sCqEBA38qjpZGtYSjTFjB5SXCPG8vA9Y7DCC7rRQaENIdq tD4MBOrxS1i8wAcBe7OXpefgXcYKSn1M0CLa+I3/4y cGLlOJL0nPbBcyc1S236KU3jLXfo9rgDmErH2Id9GfnrnHiB9zzrYj5Asn1QdLOD11Mem+WVX7L89Op+ abqyrP6CH+GnFJZ65Zp5qordFUWHN0YLsUBNYPrU1dozcTbngpu7VuHZwJDnEROYVdxZ2zG7xs/bdbUs grabpleiNznrxiw0ZDSIA7c2VXWw9TfpLCxuio0F9R uj7FbHpMX/UcnfW30n5W9yxw3sgN7pd8GTfePZyfb1E5IgM9dZersaVaWuslvc8Q7OX3Eor+QNLzeKcR cRYLOIMT1L6pDF7qlG3dX2Xxn+b7OWwRTmoBERcdi9gC/47jvD67oqPqNHAH2yWOsRa+EHI7CzXfWE9F Im6zd107UgxU1GormH0SN/f2ft9zWckkJ/8+QNpbT1 Jm+I5WR/VG2A99i+mLwhlo/2ICwIbPb5O/JVSSN4m+LFWiOAdoc0lH1rUlfZyCzK8Xan/AmOYRz9BE4w dQPCN5BTeRZLZSJbzts9P9VcIeWCkvi4ESVYhKWrrPowbaIGQz1zVl6dGvYNMFOA1FBfWTzzlLETpubJ 9xfzS1ezOokDIiaYu8pdiKSPvdIKTDLtZ6ZL91ta3M Misj/IUlVdxO13oW5OIrKGWZmpVLe/kLwhn+iBReqi1jeMhjOQudKI+NAgSUnU7S3tdNxn5tdpAiLcH1 trHJEXCGnSvGaG0J8/JlKAfsOuppGZ90055f/8/Y/kEc8o5/d7w//P7/COZ4Tz+x+/9+n6oOAhlwv+f3 6HJZ+Rzfd//I5jVpH/5fctx2/5/Ty/a3cqogx4aP1M SOb7//v9GcX8/u/4//kdD3NX+O9iI97by/3m//J7l+O7/D7k9yG/T/p9nb4G7h/y+3kv559ObUoZ397e f+X3+x1/4n7z/+/4D4p4L5+85zfK7U+R+m1mc6fZMDU/GVhQ29C/R+74sR1fPgz4tS378tS1b66gE/d7 5X6v3O+V53vrV/+G30yife+XerrUP+X6ey1U1lxS/V 2342jbvJwiR6rfxc/3yPH38/Mb9xv/R7qF73/6nt5aFCIffL50+j7J961+7/L7kN/eskM6o6p6HNkSQr bHSLHw/S/4gCzFPgl32Hudm0/5/H045Smprq/ngdVXL6a/y+/di88lbwypA/L/5n0AEoJj/9f+kVCBzy XyKbz/L/l9pa1boc/y+5Hfj/x+5ffPnyONwvf/d3z7 2m/kUHj/b/J7k9+7/N6l/rjfit+HHC/326Ycv+T4uF/+H/qNVeFq9yi/H/s4hSHrs9P/f7/23a1hx5jC r/J73C/X7jryukj+y/Hzbws98BC+n/L7lOuR++1yv/7uxtNSxpz9jf/l+mQqk3mqVvLd0ecaQrS+x4+v a1tHXNlrPJcE9TEL63tFZh1FL/CmPPsgFhO7ofKIx/ 7LsoPoXRlelHskLtwPgTj56yO+ONVZoeBLvj9tWogIbB/UO9Wg1wjVh87TxBVOiFMrYJL/ElRlqjIhwT InUzVflayDdTX9YQnCWGhjR1UiC3gnjnSZZCej9FruK+uGW22PefTyAcN9D3Vuu4YcdH4ojQ4nGg4Yud CNTB1TVl7H6ZP+Ct8d88skDJbeNwq8pmihASDqX9Md 7VjjkixMUmeZndI688OjNZByRkzB3Pb8hDeW1HwsKS9IYQEfYJzV545y1e/P76GLI/3O0L83X/qDn0+h 7HO/J53iPNuF58Fj7seJsDZ0tJkb4/D6n/u8AX8c9I+Z/P/5feH/599VpnAk5+J4slh6jKIcvx4X89/9 vv9/jReiK/+X36VRb+tEKIe4d/uqbTqM3vKKnrOtBd +WlxREF+wD0ZX/h4gYxMF1Sq8Hve3rRrotva2ZiZE/Ny4IDT5T9/ChCBE36GJSAGo1FL0wowPm/P/I7+ cV/weiK///PobEeazZfEzUMWecRI4nm4A2VjXfiQNbX/FKfJaTaVLrIUQhYXMow5gQN+Qz4MAZ+QyyY7 ixKvhzrfYQReuc3MVZEUw6lwtZfcUm1HYO+TyxkC9B ZZCXzFrCzWDcJCDrFFiZzPkObeK2II9T4WYZl4mxr7d+JLoXd5Uae+UkgMhewGsFdlOnWbYze9IQ1FdN OjxTu3dSpkkTXaliKXdldbXwovgOZEMhcwCswNlYMJNgduXxB/CRzWo74JUWOh1Dc3xd0fiDUESFCTqp /JPqAm8W+Lxht5rbRV2KUvT3MZUU9Zul/FvMdIsN5h DWYBqoNRgQao2/V/w4J5qRzs3vuZB17Bo+hn9bl9+H/M4u3700nePC+P+Y41o5gu3W70Ac0w/zqt/bPj V+kgA2ePfbaz1kXT+oNf7/vmDoK6E1u5Cuq/ig8hjijv/5fcjv8+2ob/869tuXHL/l4o6Ah6wfeA1Yqx /y+/3XO04ev7Nv/L/K73K/Q+54hU3Fsa/SyE8XrYYr Lj0ULiRS+9qd57arg8im5DR8wvOhVWE37svB/4HvI7SuMWq+/749LojT6q4/eXnGLWE4Gis3csq/z290 eSHMFv+f3/9Tfp/y+5Lfl/z+wuclb4FM9HcGS/j7FPdJjFJ47cxdZkvQv6OxAR5jXkEGyspDXHy4/5iB oHTcbEz+l4E+TQVHrmDd3o/olE6UAB3+F+eJXmxfpA oRJkooGI029E7rrCAIOUNCkQp/fx3e1iqFe8HU3c+1euu7s69yU8RkrNoSJjXuxt6qdXWTE9Qtq5q2hJ odt8GPKsBnEenidw956gFNj1QRZeGqt9/xRl/Y8t+/4DToJNRq8IU11W7fSOOalVGzyoiHi1eaPD4g/i Iwf7hwB/M0YBC0RON6u1NdZ95q+SIqF+INPny+iMo9 R9DiwnkL29/PPF+O0Z7u8L+ZhWsmegSs3BXipJslPg4J/MbH0uhDPrGdqLPtZ5pBqdFonf5kSAiK+kOS gd/vF/8/v+R6ZgEzvon/nXVQUIm3IIQ+//yOe4+I1aO3IFGiS31gUlWRBTIeYR7BAjYIz2B2//kdrSci Oaa7QH6H9/8tv2/5/GRi9QR9dykUsVm2+6z5GrRA+J vKx0BrjJZLtoERM8ODkMJDvDF7B2VnON80D7j5Q6QdUqGKdlyC1+a2lRzGDtupYXNWG0RKH/CBMEEedq VMhNE+qGe3o9aTLKWAnyh5No2vp0OcY026YYIDYRhlDXzFtBbWDnB37QdvKK1JGpbDXIsR4cjYQDlABz F1tWNqalF22Td0GS0FwufL6DEPtG+opiQE4M2SIeKo zcZj6mY8HXzNH7eK4TYyiFVegbvf1gadG33BS+J47MoYI89yBgTuhM1FrNR74QAXTXGMYRxuFcdY9yod IHgyFfpMkJLNCaM54fMFY8aclBEv0fQ+DxVs5TvCctefDbaXV1TzF0A7XHefL1TscsE0DAdmDb1P3a9a fjFAez3mnvvTtMqkZmK1hAVh1Jyix8kPXn1JnefjWc Fktx3zOhiVUUTuKKGlv3hYEnITffilBGJEp7BblwzhYwJ4DMFgd/rBVD+MlNjBcvCWtqb1jJxKOSlF3x AEX/gZe/o/4FHCNwVce8t40lrdZhCii9hB7c4q4n2oQUrzpjD0zfp9rzyxC8HqJOZQTgncaWbmzvZYwa ESQ7LyoNHKP/1ga3+r2JAOkhvLRvCanSuIxgbOhfB9 rjdQZmKazfL7cVGTMy2m0Q+B3bKcNK7x7JyLkl1ii0njqL0T0kPzc5c8tDyXOsbik6SUNP39V7gxjc6c xlCZX5bmg0z+dZDbIKSMX87ecT+66zpm8enT4zrT+2IArEZZE8zqG4ytsOUEV/3gih/UQr8SGssuuUxE cLbWdSvgDtHRwZMlycI7kJwsvG3xp1VJ/qZE4GWcnd H8bVfT6q6hzzDXqcmCgiwidg/JiccxXol5EjypQDvtuslP9mhtoM03X3wYDujkFn5CbRD0Afh4ibnyww 1crkFpdZm2sgSiiwtgdHDJsprJSsChCW4VC0tcZLjsMBoIFvXbdzusd3Ep/xIOHHW5ce7JyDTpjeThB2 HZbZehaVaQ8oInIwYGK7LRvXH2M3HBWE/e0tynXSot 9B+ygdSfXcJosMhyVo9XLNQnvmgrVZbOe9pSAsp540eySowYjeEv3K5ecR+QJYFEwfrKIv0ZKYoSb4Ar k9EKIwLij2H2DygNAiKFAW1GWNKryGGbYZPQP/hR4qSI0yLmmfuVI4b4ncG+cWqfOJeeZymzldE+cWqf GV04FqJnXbJyfAqSuw2Hxc/cmX3geYoubmgHD8buug MW3A/PeRPuh+diRu6H/34taREXrE8SARvs8cfGms4+S2GOKVnU/fA/jBfZDz08aqSVQCvVU9ISlpNQZi rBymg4Rl1Vzda03l/Go36ySBHcfMQi8tktO1/ZG+6HZzgQ++S6O6Ts0L8/Ybo3q4+MHj4Gj9mTW6sHTj +H7IS/incSz3uQvD+60kcIe2RhjDjjyImTozSzMeb1 0QFuF4xWj29ESF1BA/kidney trimmer+7Rscw/tr/fQQ8I+JuMF2gU66udjgn0EHm27o9FidljP5QCAl5trTc59jng h9aQSxmB+dqxzp9akG0EyBheTbaJzxgEbHHgJwnzgXf83nxVst2uVAEV4c1AbxpX8w2H+fiB+YaXYqe7 gG8wF/heg8iN87a/eglxZMPgv0gTrGvzaSk1hdghHx 2LB3DR5Jo7xzSfgmwx18a1zwa1VA55lmtM5f84ZGolGcEcvy6HT+vtGAYR9f/5wsnYz/7biX5jHrOasY tgiM4hIvzgRMyJh6czCALMZ9T9+8AG+gdVy5pzXaQF7xMkAoqQEYJIJhgYbAG7DrjoLsm5XagxS0eeds MmNwaxH4nyg0KPf5Fhagjd2D1R11z6P1cDcHKLixVn ZDW3sH/eROuk80mFeNZx5AGXlgFuvk1yqXrhaVmPyiiCyLP9Y833Wmwmp/lgRhfrGXtRB1fc4Awv9Ws6 ZeagV6ilH5V8MvWvI/lngCg8gDzdb7rOxa95tiQ0+EhohJZssB3wQ/v7/Is92RAj1IF0ZpVToNo5VWhb LbdoJJLXUuMmDX5/igf4HfRuuxPjsWnsAovqCAeNEO n54CtINfUKm/WdWZMzhZBrCxmAcEdyjcAD08t7Zs5JHAv0obQUtqQWVyTRLhNpzQQ4ehCnH2MP6An1fk uMjL/bWFKaXGMaSstUhAnHc6mePZkucmkE1pJrkFs6vdf/zweak0+AK2DnlpRO0Ry7mNhn9Bl2zzHAJJ oeU2ltbPEpXfwhqi4+UhusKi+Y5X5UTz/8m7dVHd5d YGggnCNdbqG44QecVR6MyVa83X98wR687+Q5VSsOnzeVr4Nef0Wm20ORPBPIJGeNxpQtuewORXv5vDJQ PaIiR1V1MLOUWtxMeMJu28hovmcyeCbOtE92qXopa1oSmraS8KyG/Erik/kvc2pgCEeG9WGP2Bd5UC/Q8 [file] nQukprgyFue0qHWCrYoKgZPVzgVZdHAEJyfwBXLFLSOdIaNfZKvjKOV+CHIGNIK LAGOON/S2B8PHvVwLUeESlUqnMk [file] MwolJUVPRg== ID Date Data Source [id number] 03/14/2021 10:26:22 AM EDT [facility] SPECIMEN DESCRIPTION PERIPHERAL 2SPECIAL REQUESTS NONECULTURE RESULTS NO GROWTH 5 DAYSREPORT STATUS FINAL 03/14/2021 Name Value Range Interpretation Code Description Data Che rce(s) Supporting Document(s) ID Date Data Source [id number] 03/14/2021 10:26:22 AM EDT [facility] [place] SPECIMEN DESCRIPTION PERIPHERAL R0UVDPYRZ REQUESTS NONECULTURE RESULTS NO GROWTH 5 DAYSREPORT STATUS FINAL 03/14/2021 Name Value Range Interpretation Code Description Data Che rce(s) Supporting Document(s) ID Date Data Source [id number] 03/09/2021 12:13:29 PM EDT [facility] Name Value Range Interpretation Code Description Data Che rce(s) Supporting Document(s) LACTIC ACID 1.2 mmol/L (0.4-2.0) [facility] [place] ID Date Data Source [id number] 03/09/2021 11:30:47 AM EDT [address] [address]Dr[place] Name: BEATRIZ Quinn WORKMANDOB: 1945Sex: FOrdering Provider: JORGE ANTUNEZREAuthorizing Prov: JORGE ASAREReferring Provider: Procedure Performed: XR CHEST PORTABLEExam Date: 03/09/2021 11:26MRN: [id number] Number: [id number] Class: InpatientAccount #: [id number] for Exam: neutropneaTechnique: AP portable view obtained.Comparison: July 27, 2008Findings: Lungs are hypoinflated. Left basilar linear densities most consistent with scarring or atelectasis are present.. Heart size normal. No adenopathy is revealed. No pleural effusion is demonstrated. Central venous catheter tip is at the level superior vena cavaIMPRESSION: Left basilar atelectasis versus scarring.Report electronically signed by: MARYJANE LYNCH On 03/09/2021 11:30 AMWorkstation ID: [id number] Name Value Range Interpretation Code Description Data Che rce(s) Supporting Document(s) ID Date Data Source [id number] 03/09/2021 11:44:20 PM EDT [facility] [place] Name Value Range Interpretation Code Description Data Che rce(s) Supporting Document(s) ESR 77 mm/h (0-30) H [facility] [place] ID Date Data Source [id number] 03/09/2021 05:32:23 PM EDT [facility] [place] Name Value Range Interpretation Code Description Data Che rce(s) Supporting Document(s) C REACTIVE PROTEIN @ 16.1 mg/dL (0.0-0.5) H [facility] [place] ID Date Data Source [id number] 03/09/2021 03:49:22 PM EDT [facility] [place] Name Value Range Interpretation Code Description Data Che rce(s) Supporting Document(s) WBC 0.1 10*3/uL (4.1-11.0) L [facility] [place] ALERTED CRITICAL RESULT TOANNA([id number]) ON D5 AT 1537 03/09/2021 [id number] RBC 2.65 10*6/uL (4.00-5.40) L [facility] [place] HGB 8.6 g/dL (12.0-16.0) L [facility] [place] HCT 24.7 % (36.0-47.0) L [facility] [place] MCV 93.2 fL (80.0-95.0) [facility] [place] MCH 32.4 pg (27.0-32.0) H [facility] [place] MCHC 34.7 g/dL (32.0-36.0) [facility] [place] RDW 12.1 % (10.5-14.5) [facility] [place] PLT 35 10*3/uL (150-450) L [facility] MPV 9.6 fL (7.1-10.7) [facility] LYMPH % 100.0 % (16.0-52.0) H [facility] [place] LYMPH # 0.1 10*3/uL (1.2-4.8) L [facility] [place] TOTAL CELLS COUNTED 10 [facility] [place] ID Date Data Source [id number] 03/09/2021 03:31:28 PM EDT [facility] Name Value Range Interpretation Code Description Data Che rce(s) Supporting Document(s) SODIUM 135 mmol/L (136-145) L [facility] POTASSIUM 4.1 mmol/L (3.6-5.2) [facility] CHLORIDE 103 mmol/L (100-108) [facility] CO2 26 mmol/L (22-31) [facility] ANION GAP 6 mmol/L (7-16) L [facility] UREA NITROGEN 11 mg/dL (7-24) [facility] CREATININE 0.31 mg/dL (0.60-1.00) L [facility] BUN/CREAT RATIO 35.5 RATIO (10.0-20.0) H [facility] GLUCOSE 91 mg/dL (70-99) [facility] CALCIUM 7.8 mg/dL (8.4-10.2) L [facility] [place] TOTAL PROTEIN 5.2 g/dL (6.4-8.2) L [facility] [place] ALBUMIN 2.4 g/dL (3.2-4.5) L [facility] GLOBULIN 2.8 g/dL (2.7-4.3) [facility] ALB/GLOB RATIO 0.9 RATIO [facility] ALKALINE PHOSPHATASE 62 U/L (45-117) [facility] [place] BILIRUBIN,TOTAL 1.1 mg/dL (0.0-1.0) H [facility] [place] PLEASE NOTE:Total bilirubin results may be falselyelevated in patients taking Eltrombopag. AST (SGOT) 8 U/L (11-39) L [facility] ALT (SGPT) 17 U/L (12-78) [facility] GFR >60 ml/min/1.73m2 (>59) [facility] GFR ( AMER) >60 ml/min/1.73m2 (>59) [facility] GFR INTERPRETATION [facility] [place] --NORMAL KIDNEY FUNCTION OR MILD DISEASE - GFR >OR= 60CHRONIC KIDNEY DISEASE - GFR 15 - 59RENAL FAILURE - GFR <15 Est. GFR calculation based on the MDRDstudy equation, which assumes a steadystate for creatinine. Est. GFR should notbe used for medication dosing. ID Date Data Source [id number] 03/09/2021 05:55:00 AM KYARA HENRIQUEZ ([facility]) Name Value Range Interpretation Code Description Data Che rce(s) Supporting Document(s) Reported Physicians See Note Reported Physici ans [place] ([facility]) Note: Reported Physicians:Ordering: JAISONR IN, RICCARDOAttending: TURRIN, RICCARDOConsulting: EDILBERTO OSORIOYNCopy To: TURRIN, RICCARDOCopy To: TURRIN, RICCARDOCopy To: Edilberto Osorioyn ID Date Data Source [id number] 03/09/2021 05:55:00 AM EDT [place] ([facility]) Name Value Range Interpretation Code Description Data Che rce(s) Supporting Document(s) #NRBC 0.00 10\\^3/uL #NRBC [place] ([facility]) Note: Responsible Observer: (CM) %LYMPH 71 % Above high normal %LYMPH [place] ([facility]) Note: Responsible Observer: (CM) %MONO 18 % Above high normal %MONO [place] ([facility]) Note: Responsible Observer: (CM) %NRBC 0.0 % %NRBC [place] ([facility]) Note: Responsible Observer: (CM) BY: DANIELLE BY: [place] ([facility]) Note: Responsible Observer: (CM) CALL/ READ BACK CALLED TO NIA CALL/ READ BACK [place] ([facility]) Note: Responsible Observer: (CM) CBC W/AUTOMATED DIFF See Note CBC W/AUTOMATED DIFF [place] ([facility]) Note: COMPLETE BLOOD COUNTResponsibl e Observer: (CM) DATE/TIME [id number] DATE/TIME [place] ([facility]) Note: Responsible Observer: (CM) Hematocrit [Pure volume fraction] of Blood by Automated count 22 .7 % Below low normal HEMATOCRIT [place] ([facility]) Note: Responsible Observer: (CM) Hemoglobin [Mass/volume] in Mixed venous blood by Oximetry 8.1 g /dL Below low normal HEMOGLOBIN [place] ([facility]) Note: Responsible Observer: (CM) MANUAL DIFF SEE BELOW MANUAL DIFF [place] ([facility]) Note: Responsible Observer: (CM) MCH 32.3 pg MCH [place] ([facility]) Note: Responsible Observer: (CM) MCHC 35.7 g/dL MCHC [place] ([facility]) Note: Responsible Observer: (CM) MCV 90.4 fL MCV [place] ([facility]) Note: Responsible Observer: (CM) MPV 10.4 fL MPV [place] ([facility]) Note: Responsible Observer: (CM) Platelets [#/area] in Blood by Microscopy high power field 33 10 \\^3/uL Below low normal PLATELETS [place] ([facility]) Note: Responsible Observer: (CM) RBC 2.51 10\\^6/uL Below low normal RBC [place] ([facility]) Note: Responsible Observer: (CM) RBC MORPH NOT INDICATED RBC MORPH [place] ([facility]) Note: Responsible Observer: (CM) RDW 11.4 % Below low normal RDW [place] ([facility]) Note: Responsible Observer: (CM) SEGS 11 % Below low normal SEGS [place] ([facility]) Note: Responsible Observer: (CM) WBC 0.1 10\\^3/uL Below lower panic limits WBC [place] ([facility]) Note: Responsible Observer: (CM) ID Date Data Source [id number] 03/09/2021 05:55:00 AM EDT [place] ([facility]) Name Value Range Interpretation Code Description Data Che rce(s) Supporting Document(s) Reported Physicians See Note Reported Physici ans [place] ([facility]) Note: Reported Physicians:Ordering: TURR IN, RICCARDOAttending: SOFIA, RICCARDOConsulting: EDILBERTO OSORIOYNCopjessee To: SOFIA, RICCARDOCopy To: SOFIA RICCARDOCopy To: Vladislav Osorio ID Date Data Source [id number] 03/09/2021 05:55:00 AM EDT [place] ([facility]) Name Value Range Interpretation Code Description Data Che rce(s) Supporting Document(s) Chloride [Moles/volume] in Serum, Plasma or Blood 99 mEq/L CHLORIDE [place] ([facility]) Note: Responsible Observer: (MLE) CO2 27 MEQ/L CO2 [place] ([facility]) Note: Responsible Observer: (MLE) Potassium [Mass/volume] in Blood 3.8 mEq/L POT ASSIUM [place] ([facility]) Note: Responsible Observer: (MLE) Sodium [Moles/volume] in Serum, Plasma or Blood 131 mEq/L Below low normal SODIUM [place] ([facility]) Note: Responsible Observer: (MLE) ID Date Data Source [id number] 03/09/2021 07:18:00 AM EDT [facility] Name Value Range Interpretation Code Description Data Che rce(s) Supporting Document(s) CBC W/AUTOMATED DIFF [facility] COMPLETE BLOOD COUNT Leukocytes [#/volume] in Blood by Automated count 0.1 10^3/uL 4.2 - 1 1.0 LL [facility] CALL/ READ BACK CALLED TO [facility] BY: DANIELLE [facility] DATE/TIME [id number] [facility] ital Erythrocytes [#/volume] in Blood by Automated count 2.51 10^6/uL 4. 20 - 5.40 L [facility] Hemoglobin [Mass/volume] in Blood 8.1 g/dL 12.0 - 16.0 L [facility] Hematocrit [Volume Fraction] of Blood by Automated count 22.7 % 3 7.0 - 47.0 L [facility] Erythrocyte mean corpuscular volume [Entitic volume] by Auto mated count 90.4 fL 81.0 - 101 [facility] Erythrocyte mean corpuscular hemoglobin [Entitic mass] by Automated count 32.3 pg 27.0 - 34.0 [facility] Erythrocyte mean corpuscular hemoglobin concentration [Mass/volume] by Automated count 35.7 g/dL 31.0 - 36.0 [facility] Erythrocyte distribution width [Ratio] by Automated count 11.4 % 11.5 - 14.5 L [facility] Platelets [#/volume] in Blood by Automated count 33 10^3/uL 150 - 450 L [facility] Platelet mean volume [Entitic volume] in Blood by Automated count 10.4 fL 7.4 - 10.4 [facility] %NRBC 0.0 % 0.0 - 0.0 [facility] #NRBC 0.00 10^3/uL 0.00 - 0.00 [facility] MANUAL DIFF SEE BELOW [facility] ital Segmented neutrophils/100 leukocytes in Blood by Manual count 11 % 37 - 80 L [facility] %LYMPH 71 % 25 - 40 [facility] %MONO 18 % 3 - 8 [facility] RBC MORPH NOT INDICATED [facility] spital ID Date Data Source [id number] 03/09/2021 06:37:00 AM EDT [facility] Name Value Range Interpretation Code Description Data Che rce(s) Supporting Document(s) Sodium [Moles/volume] in Serum or Plasma 131 mEq/L 134 - 153 L [facility] Potassium [Moles/volume] in Serum or Plasma 3.8 mEq/L 3.6 - 5.0 [facility] Chloride [Moles/volume] in Serum or Plasma 99 mEq/L 98 - 107 [facility] Carbon dioxide, total [Moles/volume] in Serum or Plasma 27 MEQ/L 22 - 30 [facility] ID Date Data Source [id number] 03/09/2021 01:55:00 AM EDT [place] ([facility]) Name Value Range Interpretation Code Description Data Che rce(s) Supporting Document(s) Reported Physicians See Note Reported Physici ans [place] ([facility]) Note: Reported Physicians:Ordering: TURR IN, RICCARDOAttending: TURRIN, RICCARDOConsulting: JUAN PABLO, JOCELYNCopy To: TURRIN, RICCARDOCopy To: TURRIN, RICCARDOCopy To: Fatimah Osoriocelyn ID Date Data Source [id number] 03/09/2021 01:55:00 AM EDT [place] ([facility]) Name Value Range Interpretation Code Description Data Che rce(s) Supporting Document(s) Chloride [Moles/volume] in Serum, Plasma or Blood 98 mEq/L CHLORIDE [place] ([facility]) Note: Responsible Observer: (MLE) CO2 26 MEQ/L CO2 [place] ([facility]) Note: Responsible Observer: (MLE) Potassium [Mass/volume] in Blood 3.7 mEq/L POT ASSIUM [place] ([facility]) Note: Responsible Observer: (MLE) Sodium [Moles/volume] in Serum, Plasma or Blood 130 mEq/L Below low normal SODIUM [place] ([facility]) Note: Responsible Observer: (MLE) ID Date Data Source [id number] 03/09/2021 02:23:00 AM EDT [facility] Name Value Range Interpretation Code Description Data Che rce(s) Supporting Document(s) Sodium [Moles/volume] in Serum or Plasma 130 mEq/L 134 - 153 L [facility] Potassium [Moles/volume] in Serum or Plasma 3.7 mEq/L 3.6 - 5.0 [facility] Chloride [Moles/volume] in Serum or Plasma 98 mEq/L 98 - 107 [facility] Carbon dioxide, total [Moles/volume] in Serum or Plasma 26 MEQ/L 22 - 30 [facility] ID Date Data Source [id number] 03/14/2021 06:44:00 AM EDT [facility] [id number] Name Value Range Interpretation Code Description Data Che rce(s) Supporting Document(s) Bacteria identified in Blood by Culture [facility] NO GROWTH AFTER 5 DAYS ID Date Data Source [id number] 03/08/2021 11:40:00 PM EDT [place] ([facility]) Name Value Range Interpretation Code Description Data Che rce(s) Supporting Document(s) Reported Physicians See Note Reported Physici ans [place] ([facility]) Note: Reported Physicians:Ordering: TURR IN, RICCARDOAttending: TURRIN, RICCARDOConsulting: EDILBERTO OSORIOYNCopy To: TURRIN, RICCARDOCopy To: TURRIN, RICCARDOCopy To: Fatimah Osoriocelyn ID Date Data Source [id number] 03/08/2021 11:40:00 PM EDT [place] ([facility]) Name Value Range Interpretation Code Description Data Che rce(s) Supporting Document(s) CULTURE BLOOD See Note CULTURE BLOOD [place] ([facility]) Note: _CULTURE BLOOD_ TEST P ERFORMED AT [address] [address] CLIA# [id number] SEE SCANNED REPORT{ PRELIMResponsible Observer: JUAN ANTONIO) ID Date Data Source [id number] 03/15/2021 12:47:00 PM EDT [facility] Name Value Range Interpretation Code Description Data Che rce(s) Supporting Document(s) CULTURE BLOOD [facility] Ho spital _CULTURE BLOOD_ TEST PERFORM ED AT [address] [address] CLIA# [id number] SEE SCANNED REPORT{ PRELIM ID Date Data Source [id number] 03/08/2021 11:37:00 PM EDT [place] ([facility]) Name Value Range Interpretation Code Description Data Che rce(s) Supporting Document(s) Reported Physicians See Note Reported Physici ans [place] ([facility]) Note: Reported Physicians:Ordering: TURR IN, RICCARDOAttending: TURRIN, RICCARDOConsulting: JUAN PABLO, JOCELYNCopy To: TURRIN, RICCARDOCopy To: TURRIN, RICCARDOCopy To: Juan Pablo, Vladislav ID Date Data Source [id number] 03/08/2021 11:37:00 PM EDT [place] ([facility]) Name Value Range Interpretation Code Description Data Che rce(s) Supporting Document(s) LACTIC ACID 1.2 MMOL/L LACTIC ACID [place] ([facility]) Note: Responsible Observer: (MLE) ID Date Data Source [id number] 03/08/2021 11:37:00 PM EDT [place] ([facility]) Name Value Range Interpretation Code Description Data Che rce(s) Supporting Document(s) Reported Physicians See Note Reported Physici ans [place] ([facility]) Note: Reported Physicians:Ordering: TURR IN, RICCARDOAttending: TURRIN, RICCARDOConsulting: JUAN PABLO, JOCELYNCopy To: TURRIN, RICCARDOCopy To: TURRIN, RICCARDOCopy To: Vladislav Osorio ID Date Data Source [id number] 03/08/2021 11:37:00 PM EDT [place] ([facility]) Name Value Range Interpretation Code Description Data Che rce(s) Supporting Document(s) A/G RATIO 1.2 A/G RATIO [place] ([facility]) Note: Responsible Observer: (MLE) AFR AMER GFR >60 AFR AMER GFR [place] ([facility]) Note: Male GFR Interprentation 20- 49 yrs >60 mL/min Normal 50-59 yrs >56 mL/min Normal 60-69 yrs >49 mL/min Normal 70- 79yrs >42 mL/min Normal 80 and above >35 mL/min Normal Female GFR Interpretation 20-39 yrs >60 mL/min Normal 40-49 yrs >58 mL/min Normal 50-59 yrs >51 mL/min Normal 60-69 yrs >45 mL/min Normal 70-79 yrs >39 mL/min Normal 80 and above >32 mL/min NormalResponsible Observer: (MLE) Egg donor age 75 yrs AGE [place] ([facility]) Note: Responsible Observer: (MLE) Albumin [Mass/volume] in Blood by Bromocresol purple ( BCP) dye binding method 3.2 G/DL Below low normal ALBUMIN [place] ([facility]) Note: Responsible Observer: (MLE) ALKALINE PHOS 60 U/L ALKALINE PHOS [place] ([facility]) Note: Responsible Observer: (MLE) Anion gap in Body fluid 7.0 mmol/L Below low normal ANION GAP [place] ([facility]) Note: Responsible Observer: (MLE) BUN 12 MG/DL BUN [place] ([facility]) Note: Responsible Observer: (MLE) BUN/CREAT 40 Above high normal BUN/CREAT [facility] ([facility]) Note: Responsible Observer: (MLE) Calcium [Moles/volume] in Urine collected for unspecified durati on 8.7 MG/DL CALCIUM [place] ([facility]) Note: Responsible Observer: (MLE) Chloride [Moles/volume] in Serum, Plasma or Blood 93 mEq/L Below low normal CHLORIDE [place] ([facility]) Note: Responsible Observer: (MLE) CO2 26 MEQ/L CO2 [place] ([facility]) Note: Responsible Observer: (MLE) COMPREHENSIVE METABOLIC PANEL See Note WILMERE HENSIVE METABOLIC PANEL [place] ([facility]) Note: COMPREHENSIVE METABOLIC PANELR esponsible Observer: (MLE) Creatinine [Moles/volume] in Vitreous fluid <0.4 MG/DL Below low normal CREATININE [place] ([facility]) Note: Responsible Observer: (MLE) Globulin [Mass/time] in 24 hour Urine 2.6 GM/DL GLOBULIN [place] ([facility]) Note: Responsible Observer: (MLE) Glucose [Mass/volume] in Urine collected for unspecified duratio n 123 MG/DL Above high normal GLUCOSE [place] ([facility]) Note: Responsible Observer: (MLE) NON-AA GFR >60 mL/min NON-AA GFR [place] ([facility]) Note: Responsible Observer: (MLE) Potassium [Mass/volume] in Blood 3.6 mEq/L POT ASSIUM [place] ([facility]) Note: Responsible Observer: (MLE) SGOT/AST 9 U/L SGOT/AST [place] ([facility]) Note: Responsible Observer: (MLE) SGPT/ALT 12 U/L SGPT/ALT [place] ([facility]) Note: Responsible Observer: (MLE) Sodium [Moles/volume] in Serum, Plasma or Blood 126 mEq/L Below low normal SODIUM [place] ([facility]) Note: Responsible Observer: (MLE) TOTAL BILI 1.3 MG/DL TOTAL BILI [place] ([facility]) Note: Responsible Observer: (MLE) TOTAL PROTEIN 5.8 G/DL Below low normal [facility]) Note: Responsible Observer: (MLE) ID Date Data Source [id number] 03/08/2021 11:37:00 PM EDT [place] ([facility]) Name Value Range Interpretation Code Description Data Che rce(s) Supporting Document(s) Reported Physicians See Note Reported Physici ans [place] ([facility]) Note: Reported Physicians:Ordering: JAISONR IN, RICCARDOAttending: JAISONRIN, RICCARDOConsulting: VLADISLAV OSORIOCopjessee To: JAISONRIN, RICCARDOCopy To: SOFIA, RICCARDOCopy To: Vladislav Osorio ID Date Data Source [id number] 03/08/2021 11:37:00 PM EDT [place] ([facility]) Name Value Range Interpretation Code Description Data [facility] rce(s) Supporting Document(s) #NRBC 0.00 10\\^3/uL #NRBC [place] ([facility]) Note: Responsible Observer: (LBS) %EOS 2 % %EOS [place] ([facility]) Note: 50 CELL COUNT DIFFERENTIAL DONE.Re sponsible Observer: (LBS) %LYMPH 90 % Above high normal %LYMPH [place] ([facility]) Note: Responsible Observer: (LBS) %NRBC 0.0 % %NRBC [place] ([facility]) Note: Responsible Observer: (LBS) BY: LBS BY: [place] ([facility]) Note: Responsible Observer: (LBS) CALL/ READ BACK OSWALD RN/ ER CALL/ READ BACK ALEXANDER NERI ([facility]) Note: Responsible Observer: (LBS) CBC W/AUTOMATED DIFF See Note CBC W/AUTOMATED DIFF [place] ([facility]) Note: COMPLETE BLOOD COUNTResponsibl e Observer: (LBS) DATE/TIME 03-09-21 1:03AM DATE/TIME [place] ([facility]) Note: Responsible Observer: (LBS) Hematocrit [Pure volume fraction] of Blood by Automated count 25 .1 % Below low normal HEMATOCRIT [place] ([facility]) Note: Responsible Observer: (LBS) Hemoglobin [Mass/volume] in Mixed venous blood by Oximetry 9.1 g /dL Below low normal HEMOGLOBIN [place] ([facility]) Note: Responsible Observer: (LBS) HYPO 1+ Abnormal (applies to non-numeric res ults) HYPO [place] ([facility]) Note: { SICKLE CELL (NORMAL: NONE SEEN )Responsible Observer: (LBS) MANUAL DIFF SEE BELOW MANUAL DIFF [place] ([facility]) Note: Responsible Observer: (LBS) MCH 32.5 pg MCH [place]AN ([facility]) Note: Responsible Observer: (LBS) MCHC 36.3 g/dL Above high normal MCHC [place] ([facility]) Note: Responsible Observer: (LBS) MCV 89.6 fL MCV [facility] ([facility]) Note: Responsible Observer: (LBS) MPV 10.4 fL MPV [place] ([facility]) Note: Responsible Observer: (LBS) Platelets [#/area] in Blood by Microscopy high power field 43 10 \\^3/uL Below low normal PLATELETS [place] ([facility]) Note: Responsible Observer: (LBS) PLT EST DECREASED Abnormal (applies to non-numeric res ults) PLT EST [place] ([facility]) Note: COMMENT: _0 03/09/21.0102.LBS.Responsible Observer: (LBS) RBC 2.80 10\\^6/uL Below low normal RBC [place]AN ([facility]) Note: Responsible Observer: (LBS) RBC MORPH SEE BELOW RBC MORPH [place] ([facility]) Note: Responsible Observer: (LBS) RDW 11.3 % Below low normal RDW [place] ([facility]) Note: Responsible Observer: (LBS) SEGS 6 % Below low normal SEGS [place] ([facility]) Note: Responsible Observer: (LBS) WBC 0.1 10\\^3/uL Below lower panic limits WBC [place] ([facility]) Note: Responsible Observer: (LBS) ID Date Data Source [id number] 03/08/2021 11:37:00 PM EDT [place]AN ([facility]) Name Value Range Interpretation Code Description Data Che rce(s) Supporting Document(s) Reported Physicians See Note Reported Physici ans [place]AN ([facility]) Note: Reported Physicians:Ordering: TURR IN, RICCARDOAttending: TURRIN, RICCARDOConsulting: JUAN PABLO, JOCELYNCopy To: TURRIN, RICCARDOCopy To: TURRIN, RICCARDOCopy To: Juan Pablo Vladislav ID Date Data Source [id number] 03/08/2021 11:37:00 PM EDT [place] ([facility]) Name Value Range Interpretation Code Description Data Che rce(s) Supporting Document(s) COVID-19 NOT DETECTED COVID-19 [place] ([facility]) Note: Responsible Observer: (LBS) COVID-19 REENTER NOT DETECTED COVID-19 REENTER [place]AN ([facility]) Note: { PROCEDURAL CONTROL V ALID KIT LOT # _[id number] 03/09/21.0011.LBS. . . KIT EXP DATE _89-29-74 03/09/21.10.LBS. . . NORMAL RANGE IS NOT DETECTEDNEGATIVE RESULTS SHOULD BE TREATED PRESUMPTIVE AND, IF INCONSISTENT WITHCLINICAL SIGNS AND SYMPTOMS OR NECESSARY FOR PATIENT MANAGEMENT, SHOULD BETESTED WITH DIFFERENT AUTHORIZED OR CLEARED MOLECULAR TESTS. NEGATIVE RESULTSDO NOT PRECLUDE SARS-CoV-2 INFECTION AND SHOULD NOT BE USED THE SOLE BASISFOR PATIENT MANAGEMENT DECISIONS.Responsible Observer: (LBS) ID Date Data Source [id number] 03/08/2021 11:37:00 PM EDT [place]AN ([facility]) Name Value Range Interpretation Code Description Data Che rce(s) Supporting Document(s) Reported Physicians See Note Reported Physici ans [place]AN ([facility]) Note: Reported Physicians:Ordering: TURR IN, RICCARDOAttending: TURRIN, RICCARDOConsulting: JUAN PABLO, JOCELYNCopy To: TURRIN, RICCARDOCopy To: TURRIN, RICCARDOCopy To: Juan Pablo, Vladislav ID Date Data Source [id number] 03/08/2021 11:37:00 PM EDT [place]AN ([facility]) Name Value Range Interpretation Code Description Data Che rce(s) Supporting Document(s) CULTURE BLOOD See Note CULTURE BLOOD [place]AN ([facility]) Note: _CULTURE [place]LOOD_ [place] [address] CLIA# [id number] SEE SCANNED REPORT{ PRELIMResponsible Observer: () ID Date Data Source [id number] 03/15/2021 12:47:00 PM EDT [facility] Name Value Range Interpretation Code Description Data Che rce(s) Supporting Document(s) CULTURE BLOOD [facility] _CULTURE BLOOD_ TEST [place] [address] CLIA# [id number] SEE SCANNED REPORT{ PRELIM ID Date Data Source [id number] 03/08/2021 11:37:00 PM EDT [facility] Name Value Range Interpretation Code Description Data Che rce(s) Supporting Document(s) COVID19 Case rprt NOT DETECTED [facility] This lab was ordered by [facility] and reported by [facility]. ID Date Data Source [id number] 03/09/2021 12:11:00 AM EDT [facility] NOT DETECTEDNOT DETECTED{ PROC EDURAL CONTROL VALID KIT LOT # _[id number] 03/09/21.0011.LBS. . . KIT EXP DATE _51-14-62 03/09/21.0011.LBS. . . NORMAL RANGE IS NOT DETECTEDNEGATIVE RESULTS SHOULD BE TREATED PRESUMPTIVE AND, IF INCONSISTENT WITHCLINICAL SIGNS AND SYMPTOMS OR NECESSARY FOR PATIENT MANAGEMENT, SHOULD BETESTED WITH DIFFERENT AUTHORIZED OR CLEARED MOLECULAR TESTS. NEGATIVE RESULTSDO NOT PRECLUDE SARS-CoV -2 INFECTION AND SHOULD NOT BE USED THE SOLE BASISFOR PATIENT MANAGEMENT DECISIONS. Name Value Range Interpretation Code Description Data Che rce(s) Supporting Document(s) ID Date Data Source [id number] 03/09/2021 01:02:00 AM EDT [facility] Name Value Range Interpretation Code Description Data Che rce(s) Supporting Document(s) CBC W/AUTOMATED DIFF [facility] COMPLETE BLOOD COUNT Leukocytes [#/volume] in Blood by Automated count 0.1 10^3/uL 4.2 - 1 1.0 LL [facility] CALL/ READ BACK OSWALD LUCAS/ ER [facility] BY: LBS [facility] DATE/TIME 03-09-21 1:03AM [facility] ospital Erythrocytes [#/volume] in Blood by Automated count 2.80 10^6/uL 4. 20 - 5.40 L [facility] Hemoglobin [Mass/volume] in Blood 9.1 g/dL 12.0 - 16.0 L [facility] Hematocrit [Volume Fraction] of Blood by Automated count 25.1 % 3 7.0 - 47.0 L [facility] Erythrocyte mean corpuscular volume [Entitic volume] by Auto mated count 89.6 fL 81.0 - 101 [facility] Erythrocyte mean corpuscular hemoglobin [Entitic mass] by Automated count 32.5 pg 27.0 - 34.0 [facility] Erythrocyte mean corpuscular hemoglobin concentration [Mass/volume] by Automated count 36.3 g/dL 31.0 - 36.0 H [facility] Erythrocyte distribution width [Ratio] by Automated count 11.3 % 11.5 - 14.5 L [facility] Platelets [#/volume] in Blood by Automated count 43 10^3/uL 150 - 450 L [facility] Platelet mean volume [Entitic volume] in Blood by Automated count 10.4 fL 7.4 - 10.4 [facility] %NRBC 0.0 % 0.0 - 0.0 [facility] #NRBC 0.00 10^3/uL 0.00 - 0.00 [facility] MANUAL DIFF SEE BELOW [facility] ital Segmented neutrophils/100 leukocytes in Blood by Manual count 6 % 37 - 80 L [facility] %LYMPH 90 % 25 - 40 H [facility] %EOS 2 % 0 - 7 [facility] 50 CELL COUNT DIFFERENTIAL DONE. RBC MORPH [facility] BELOW [facility] HYPO [facility]+ NORMAL: NONE SEEN A [facility] { SICKLE CELL (NORMAL: NONE SEEN ) Platelet adequacy [Presence] in Blood by Light microscopy DE CREASED NORMAL: NORMAL A [facility] COMMENT: _0 03/09/21.0102.LBS. ID Date Data Source [id number] 03/09/2021 12:01:00 AM EDT [facility] Name Value Range Interpretation Code Description Data Che rce(s) Supporting Document(s) COMPREHENSIVE METABOLIC PANEL [facility] COMPREHENSIVE METABOLIC PANEL Sodium [Moles/volume] in Serum or Plasma 126 mEq/L 134 - 153 L [facility] Potassium [Moles/volume] in Serum or Plasma 3.6 mEq/L 3.6 - 5.0 [facility] Chloride [Moles/volume] in Serum or Plasma 93 mEq/L 98 - 107 L [facility] Carbon dioxide, total [Moles/volume] in Serum or Plasma 26 MEQ/L 22 - 30 [facility] Glucose [Mass/volume] in Serum or Plasma 123 MG/DL 70 - 99 H [facility] BUN 12 MG/DL 7 - 21 [facility] al Creatinine [Mass/volume] in Serum or Plasma <0.4 MG/DL 0.7 - 1.5 L [facility] BUN/CREAT 40 8 - 27 H [facility] Protein [Mass/volume] in Serum or Plasma 5.8 G/DL 6.3 - 8.2 L [facility] Albumin [Mass/volume] in Serum or Plasma 3.2 G/DL 3.9 - 5.0 L [facility] Globulin [Mass/volume] in Serum by calculation 2.6 GM/DL 2.4 - 3.2 [facility] A/G RATIO 1.2 0.8 - 2.0 [facility] Calcium [Mass/volume] in Serum or Plasma 8.7 MG/DL 8.4 - 10.2 [facility] Bilirubin.total [Mass/volume] in Serum or Plasma 1.3 MG/DL 0.2 - 1.3 [facility] Alkaline phosphatase [Enzymatic activity/volume] in Serum or Plasma 60 U/L 38 - 126 [facility] Aspartate aminotransferase [Enzymatic activity/volume] in Se rum or Plasma 9 U/L 5 - 40 [facility] Alanine aminotransferase [Enzymatic activity/volume] in Seru m or Plasma 12 U/L 7 - 56 [facility] Anion gap 3 in Serum or Plasma 7.0 mmol/L 8.0 - 16.0 L [facility] 75 [facility] G[facility] >60 mL/min [facility] ital AFR AMER GFR >60 [facility] Male GFR In terprentation 20-49 yrs >60 mL/min Normal 50-59 yrs >56 mL/min Normal 60-69 yrs >49 mL/min Normal 70-79yrs >42 mL/min Normal 80 and above >35 mL/min Normal Female GFR Interpretation 20-39 yrs >60 mL/min Normal 40-49 yrs >58 mL/min Normal 50-59 yrs >51 mL/min Normal 60-69 yrs >45 mL/min Normal 70-79 yrs >39 mL/min Normal 80 and above >32 mL/min Normal ID Date Data Source [id number] 03/09/2021 12:00:00 AM EDT [facility] Name Value Range Interpretation Code Description Data Che rce(s) Supporting Document(s) Lactate [Moles/volume] in Serum or Plasma 1.2 MMOL/L 0.2 - 2.2 [facility] ID Date Data Source [id number] 03/08/2021 02:39:00 AM EDT [facility] 1 OrderSheet [facility] Emergency Department [address] [place] [address] Phone #: ext- [phone] 03/08/2021 02:39 Patient: BEATRIZ CASTANEDA Sex: F : 1945 Age: 75yWEIGHT:58.0 kg (S) HEIGHT:62 inches (S) BMI:23.4ALLERGIES: PenicillinsCHIEF COMPLAINT: abd painDIAGNOSIS: Asthenia, NeutropeniaLAB ORDERSOrder Description Priority Entered Acknowledged InitialedCBC w Diff STAT 03:03/08/2021 03:53 Mami Babcock Norma MD; Rani HiCMP STAT 03:03/08/2021 03:53 Mami Babcock Norma MD; Rani HiMagnesium STAT 03:03/08/2021 03:53 Mami Babcock Norma MD; Rani HiDIAGNOSTIC STUDY ORDERSOrder Description Priority Entered Acknowledged InitialedMEDICATION/IV/DRIP/FLUID ORDERSOrder Description Priority Entered Acknowledged InitialedDilaudid IM 1 mg 02:48 03/08/2021 03:00 Melaragno,(HIGH ALERT Mary Ellen Mcfarland MD; Rani R.N.MEDICATION)Zofran ODT PO 4 02:48 03/08/2021 03:00 Melaragno,mg (NOW x1) Mary Ellen Mcfarland MD; Rani R.N.IV NS 1000 mL 03:24 03/08/2021 03:54 Yoko,Bolus : Bolus 1000 Mary Ellen Mcfarland MD; Rani R.N.mL (X1)Zofran IVP 4 mg 03:24 03/08/2021 03:54 Mami Babcock Norma MD; Rani R.N.levoFLOXacin PO 07:08 03/08/2021 07:11 Melaragno,750 mg (NOW x1) Mary Ellen Mcfarland MD; Rani R.N. Reason for ordering with alerts: Benefits outweigh risks -- 07:08 03/08/2021 Mary Ellen Mcfarland MDGENERAL ORDERSOrder Description Priority Entered Acknowledged Initialed[Electronically signed by Mary Ellen Mcfarland MD (07:24 03/08/2021)] 2 OrderSheet [facility] Emergency Department [address] [place] [address] Phone #: ext- [phone] 03/08/2021 02:39 Patient: BEATRIZ CASTANEDA Sex: F : 1945 Age: 75y[Electronically signed by Jaycob Sutton RN (07:03/08/2021)][Electronically locked by Jyacob Sutton RN (:03/08/2021)] Name Value Range Interpretation Code Description Data Che rce(s) Supporting Document(s) ID Date Data Source [id number] 03/08/2021 02:39:00 AM EDT [facility] 1 Medication Reconciliation Report [facility] Emergency Department [address] [place] [address] Phone #: ext- [phone] 03/08/2021 02:39 Patient: BEATRIZ CASTANEDA Sex: F : 1945 Age: 75yWeight: 58.0 kgHeight/Length: 62 in.BMI: 23.4ALLERGIES: PenicillinsThe patient's Home Medications are listed below:CONTINUE TAKING THE FOLLOWING MEDICATIONS: Allopurinol Oral (300 mg) 1 tablet, daily Aspirin Oral (81 mg) 1 tablet, daily Ergocalciferol Oral (1.25 MG (97296 UT)) 1 capsule, monthly, 1st of the month HydroCHLOROthiazide Oral (25 mg) 1 tablet, daily, every AM HYDROmorphone HCl Oral (2 mg) 1 tablet, q4h, moderate to severe pain, prn Lovaza Oral (1 gm) 2 capsules, 2x a day Metoprolol Tartrate Oral (25 mg) 1/2 tablet, 2x a day Prochlorperazine Maleate Oral (10 mg) 1 tablet, q6h, nausea vomiting, prn Simvastatin Oral 20 mg, daily, at bedtime Sulfamethoxazole-Trimethoprim Oral (800-160 mg) 1 tablet, 2x a day, saturday Tylenol Oral (325 mg) 2 tablets, q4h, mild pain, prn Zofran Oral (4 mg) 1 tablet, q6h, nausea, prnThe source(s) of the original Home Medication information:Not obtained.The following Medications were given to the patient in the Emergency Department: 2 Medication Reconciliation Report [facility] Emergency Department [address] [place] [address], [place] [address] Phone #: ext- [phone] 03/08/2021 02:39 Patient: BEATRIZ CASTANEDA Sex: F : 1945 Age: 75yDilaudid [IM] IM 1 mg, administered: 03:00 03/08/2021Zofran ODT [PO] PO 4 mg, administered: 03:00 03/08/2021Zofran [IVP] IVP 4 mg, administered: 03:54 03/08/2021odium Chloride [IV] IV Fluids bolus 0, then 1000 mL/hr, administered: 03:54 03/08/2021evofloxacin [PO] PO 750 mg, administered: 07:11 03/08/2021The following Medications were prescribed to the patient:levofloxacin 750 mg tablet Take 1 tablet once a day -- Dispense 10 tablet. Refills: 0. Substitutionpermitted.Pharmacy - [id number] - [id number] ; [place], [place] [phone]. . -- Mary Ellen Mcfarland MD Name Value Range Interpretation Code Description Data Che rce(s) Supporting Document(s) ID Date Data Source [id number] 03/08/2021 02:39:00 AM EDT [facility] 1 Medication Administration Record [facility] Emergency Department [address] [place] [address] Phone #: ext- [phone] 03/08/2021 02:39 Patient: BEATRIZ CASTANEDA Sex: F : 1945 Age: 75yWeight: 58.0 kgHeight/Length: 62 inBMI: 23.4ALLERGIES: Penicillins Date/Time Medication Administered Medication OrderedGiven DILAUDID [IM] (HYDROMORPHONE Dilaudid IM 1 mg (HIGH ALERT03:00 03/08/2021 HCL) MEDICATION)Rani Babcock R.N. Dose: 1 mg IMGiven ZOFRAN ODT [PO] (ONDANSETRON Zofran ODT PO 4 mg (NOW x1)03:00 03/08/2021 HCL)Rani Babcock R.N. Dose: 4 mg POStart SODIUM CHLORIDE [IV] IV NS 1000 mL Bolus : Bolus 195955:[id number] 03/08/2021 Dose: IV Fluids mL (X1)Rani Babcock R.N. Rate: 1000 mL/hr over 1 hour(s)---- Dispensed: 1000 mL bagStop Site: #1 right AC04:54 03/08/2021Rani Babcock R.N.Given ZOFRAN [IVP] (ONDANSETRON HCL) Zofran IVP 4 mg03:54 03/08/2021 Dose: 4 mg IVPMelaRani rayo R.N. Site: #1 right ACGiven LEVOFLOXACIN [PO] levoFLOXacin PO 750 mg (NOW07:11 03/08/2021 Dose: 750 mg PO x1)Rani Babcock R.N. Name Value Range Interpretation Code Description Data Che rce(s) Supporting Document(s) ID Date Data Source [id number] 03/08/2021 02:39:00 AM EDT [facility] 1 General Instructions [facility] Emergency Department [address] [place] [address] Phone #: ext- [phone] 03/08/2021 02:39 Patient: BEATRIZ CASTANEDA Sex: F : 1945 Age: 75yWeakness.Neutropenia associated with cancer chemotherapy.INSTRUCTIONSRest.(Please keep your follow up appt with your oncologist on saturday. return if worse or any new symptoms.).Warnings: Further evaluation is necessary.GENERAL WARNINGS: Return or contact your physician immediately if your condition worsens orchanges unexpectedly, if not improving as expected, or if other problems arise.Your Current Medications: Your current home medications have been reviewed.CONTINUE TAKING THE FOLLOWING MEDICATIONS:Allopurinol Oral : Tablet 300 mg, 1 tablet daily.Aspirin Oral : Tablet Chewable 81 mg, 1 tablet daily.Ergocalciferol Oral : Capsule 1.25 MG (89646 UT), 1 capsule monthly, 1st of the month.HydroCHLOROthiazide Oral : Tablet 25 mg, 1 tablet daily, every AM.HYDROmorphone HCl Oral : Tablet 2 mg, 1 tablet q4h, prn, moderate to severe pain.Lovaza Oral : Capsule 1 gm, 2 capsules 2x a day.Metoprolol Tartrate Oral : Tablet 25 mg, 1/2 tablet 2x a day.Prochlorperazine Maleate Oral : Tablet 10 mg, 1 tablet q6h, prn, nausea vomiting.Simvastatin Oral : 20 mg daily, at bedtime.Tylenol Oral : Tablet 325 mg, 2 tablets q4h, prn, mild pain.Zofran Oral : Tablet 4 mg, 1 tablet q6h, prn, nausea.Sulfamethoxazole-Trimethoprim Oral : Tablet 800-160 mg, 1 tablet 2x a day, saturday.Prescription Medications:levofloxacin 750 mg tablet Take 1 tablet once a day -- Dispense 10 tablet. Refills: 0. Substitutionpermitted.Pharmacy - [facility] - [id number] ; [place], [place] [phone]. .Follow-up:Follow up with a specialist oncologist even if well. Call for an appointment. Reason for referral: evaluation.Summary of care provided to patient via paper.Understanding of the discharge instructions verbalized by patient. 2 General Instructions [facility] Emergency Department [address] [place] [address] Phone #: ext- [phone] 03/08/2021 02:39 [id number] Sex: F : 1945 Age: 75y ADDITIONAL INFORMATIONWeakness with Uncertain CauseBased on your exam today, the exact cause of your weakness is not certain. But your weakness doesnot seem to be a sign of a serious illness at this time. Keep an eye on your symptoms and getmedical advice as instructed below.Home care Rest at home today. Don't over-exert yourself. Take any medicine as prescribed. For the next few days, drink extra fluids (unless your healthcare provider wants you to restrict fluids for other reasons). Don't skip meals. Unless otherwise directed, continue to take any prescription medicines. Contact your healthcare provider if you have any questions or concerns.Follow-up careFollow up with your healthcare provider, or as advised.When to seek medical adviceCall your healthcare provider right away for any of the following: Symptoms get worse Symptoms don't start getting better within 2 days Fever of 100.4 F (38 C) or higher, or as directed by your healthcare providerCall [phone] for any of these: Chest, arm, neck, jaw, or upper back pain Trouble breathing Numbness or weakness of the face, one arm, or one leg Slurred speech, confusion, or trouble speaking, walking, or seeing 3 General Instructions [facility] Emergency Department [address] [place] [address] Phone #: ext- [phone] 03/08/2021 02:39 Patient: BEATRIZ CASTANEDA Sex: F : 1945 Age: 75y Blood in vomit or stool (black or red color) Loss of consciousness Severe headache [phone] [employer]. [address] [place] [address]. All rights reserved. This information is not intended as asubstitute for professional medical care. Always follow your healthcare professional's instructions. You have been given the following additional information: Weakness (Uncertain Cause) Rest.(Electronically signed by Mary Ellen Mcfarland MD 03/08/2021 07:24) Name Value Range Interpretation Code Description Data Che rce(s) Supporting Document(s) ID Date Data Source [id number] 03/08/2021 02:39:00 AM EDT [facility] 1 Clinical Report - Nurses [facility] Emergency Department [address] [place] [address] Phone #: ext- [phone] 03/08/2021 02:39 Patient: BEATRIZ CASTANEDA Sex: F : 1945 Age: 75yTRIAGEArrived by private vehicle. Historian: patient. Accompanied by family.Acuity: LEVEL 3.Chief Complaint: ABDOMINAL PAIN.Alert. No acute distress.This started today. ( Patient arrives c/o abdaminal pain. Pt reports hx of CA and has baseline of abd pain.Pt reports today abd pain has increased, pt states she has been taking prescribed dilaudid Q4 hrs with littlerelief.). She has had nausea and abdominal pain. 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 --02:45 03/08/21 Rani Babcock R.N.02:40 03/08/21. BP: 109/71. MAP: 83. HR: 114. RR: 19. O2 saturation: 98% on room air. Temp: 97.7 F(oral). Pain level now: 06/04. --02:45 03/08/21 Rani Babcock R.N.Weight: 58 kg stated. Height/Length: 62 inches Per Patient. BMI: 23.4. --02:39 03/08/21 Rani Babcock R.N.MedicationsAllopurinol Oral (Tablet 300 mg) 1 tablet, daily. Aspirin Oral (Tablet Chewable 81 mg) 1 tablet, daily. Ergocalciferol Oral (Capsule 1.25 MG (71466 UT)) 1 capsule, monthly ( of the month). HydroCHLOROthiazide Oral (Tablet 25 mg) 1 tablet, daily every AM. HYDROmorphone HCl Oral (Tablet 2 mg) 1 tablet, q4h as needed, moderate to severe pain. Lovaza Oral (Capsule 1 gm) 2 capsules, 2x a day. Metoprolol Tartrate Oral (Tablet 25 mg) 1/2 tablet, 2x a day. Prochlorperazine Maleate Oral (Tablet 10 mg) 1 tablet, q6h as needed, nausea vomiting. Simvastatin Oral 20 mg, daily at bedtime. Sulfamethoxazole- Trimethoprim Oral (Tablet 800-160 mg) 1 tablet, 2x a day (saturday). Tylenol Oral (Tablet 325 mg) 2 tablets, q4h as needed, mild pain. Zofran Oral (Tablet 4 mg) 1 tablet, q6h as needed, nausea. --02:41 03/08/21 Rani Babcock R.N.AllergiesPenicillins. (BREAKOUT x1) --02:41 03/08/21 Rani Babcock R.N.PROBLEMS:Vomiting.Sleep Apnea. 2 Clinical Report - Nurses [facility] Emergency Department [address] [place] [address] Phone #: ext- [phone] 03/08/2021 02:39 Patient: [id number] Sex: F : 1945 Age: 75yDehydration.Carotid Artery Disease.Hypertension.Hypercholesterolemia.Hypokalemia.Renal Colic. --02:41 03/08/21 Rani Babcock R.N.ADDITIONAL SURGERIES:Carotid Surgery.Mastectomy (25 YEARS AGO).OPEN HEART SURGERY. --02:41 03/08/21 Rani Babcock R.N.HistoryPAST MEDICAL HX: Immunizations: up-to-date.SOCIAL HX: Never smoker. No alcohol use or drug use. ( COVID screen negative). She has nottraveled outside the [place]Infectious disease exposure: No infectious disease exposure. Patient is not a known carrier of tuberculosis,hepatitis, HIV, MRSA or VRE. Patient is not a known carrier of CRE.ABUSE ASSESSMENT: Abuse assessment. The patient had positive responses to the question(s) "Do youfeel safe in your home?", "Are you afraid to go home?", "Has anyone hurt you or threatened to hurt you?","Are you afraid of your partner?" and "Have children witnessed violence in the home?". Abuse denied.NUTRITIONAL RISK ASSESSMENT: The nutritional risk assessment revealed no deficiencies.FUNCTIONAL ASSESSMENT: Functional assessment: no impairments noted.LEARNING NEEDS ASSESSMENT: The learning needs assessment revealed no barriers.FALL RISK ASSESSMENT: Fall risk assessment completed. Risk factors identified include patient agegreater than 65 years. Fall interventions initiated. Patient placed on stretcher. Side rails up x2. Bed in lowposition. Brakes on. Patient visible from nurses' station. Call light in reach of patient. Instructions given topatient. Verbalizes understanding.SKIN INTEGRITY ASSESSMENT: Skin integrity risk assessment completed. No skin integrity riskidentified. --02:45 03/08/21 Rani Babcock R.N.ABUSE ASSESSMENT: Abuse assessment. The patient had positive responses to the question(s) "Do youfeel safe in your home?", "Are you afraid to go home?", "Has anyone hurt you or threatened to hurt you?","Are you afraid of your partner?" and "Have children witnessed violence in the home?". Abuse denied.--02:46 03/08/21 Rani Babcock RParveen.SELF HARM ASSESSMENT: Self harm assessment was performed. The patient answered "no" to thequestion(s) "Have you recently felt down, depressed, or hopeless?", "Do you have thoughts of harming or 3 Clinical Report - Nurses [facility] Emergency Department [address] [place] [address] Phone #: ext- [phone] 03/08/2021 02:39 Patient: BEATRIZ CASTANEDA [facility]#: [id number] Sex: F : 1945 Age: 75y killing yourself?", "Do you have a plan for harming or killing yourself?", "Have you recently had thoughts about harming or killing others?", "Do you have any dangerous items in your possession?", "Have you noticed less interest or pleasure in doing things?", "Are you here because you tried to hurt yourself?&q uot; and "Have you ever tried to hurt yourself before today?". --02:46 03/08/21 Rani Babcock R.N. Interventions Identification band on patient. To treatment room. --02:45 03/08/21 Rani Babcock R.N.PHYSICAL ASSESSMENTAmbulatory to room. Patient gowned.GENERAL / NEURO / PSYCH: Alert. Oriented X 4. Appears in no acute distress. Appears in pain.HEENT: Mucous membranes are pink.RESPIRATORY: Respirations not labored. Breath sounds within normal limits.CVS: Normal sinus rhythm noted. Capillary refill less than 2 seconds.GI / : The patient has had nausea. Abdomen soft. Abdominal tenderness. Bowel sounds withinnormal limits. No emesis noted. No diarrhea.SKIN: Skin is warm and dry. --02:45 03/08/21 Rani Babcock R.N.NURSING PROGRESS NOTESMonitoring of patient in place. Patient gowned. Head of bed elevated. Reassurance given. Twopatient identifiers checked. Call light placed in reach. Side rails up x 2. Bed placed in lowest position.Brakes of bed on. --02:45 03/08/21 Rani Babcock R.N. 03:00 03/08/2021 Dilaudid (HYDROmorphone HCl) IM 1 mg given. Given in the left deltoid. Allergies verified and confirmed 5 rights. Information reviewed with patient including sedative warning. Verbalizes understanding. --03:00 03/08/21 Rani Babcock R.N. 03:00 03/08/2021 Zofran ODT (Ondansetron HCl) PO 4 mg given. Allergies verified and confirmed 5 rights. Information reviewed with patient. Verbalizes understanding. --03:00 03/08/21 Rani Babcock R.N. 03:54 03/08/2021 Site #1 started via IV in the right antecubital space with an 20g angiocath, with aseptic technique; one attempt. Blood drawn. Labeled in the presence of the patient and sent to the lab. Saline lock flushed with 10 mL saline. --03:54 03/08/21 Rani Babcock R.N. 03:54 03/08/2021 Zofran (Ondansetron HCl) IVP 4 mg given via site #1. Allergies verified and confirmed 5 rights. IV patency established. IV site checked: no pain, redness, or swelling. IV flushed thoroughly pre- and post-medication administration. IVP given by RN. Information reviewed with patient. Verbalizes understanding. --03:54 03/08/21 Rani Babcock R.N. 03:54 03/08/2021 Started bag #1 1000 mL IV Fluids Sodium Chloride; at 1000 mL/hr over 1 hour(s) via site #1 via IV pump. Allergies verified and confirmed 5 rights. IV patency established. IV site checked: no pain, redness, or swelling. IV flushed thoroughly pre- and post-medication administration. Information reviewed with patient. Verbalizes understanding. --03:54 03/08/21 Rani Babcock R.N. 4 Clinical Report - Nurses [facility] Emergency Department [address] [place] [address] Phone #: ext- [phone] 03/08/2021 02:39 Patient: BEATRIZ CASTANEDA Sex: F : 1945 Age: 75y Critical value relayed by [facility]. Critical value received by Rani LUCAS. WBC: 0.1. Critical value read back. Verified lab result and patient ID. ED physician notifed of critical value. --05:29 03/08/21 Rani Babcock R.N. The patient is calm and resting quietly. Overall patient status- she states feels better. --05:29 03/08/21 Rani Babcock R.N. 05:29 03/08/21. BP: 110/56. MAP: 74. HR: 81. RR: 16. O2 saturation: 95% on room air. --05:29 03/08/21 Rani Babcock R.N. 03:30 03/08/2021 Dilaudid IM Response: symptoms have improved the patient feels better. --05:56 03/08/21 Rani Babcock R.N. 04:54 03/08/2021 IV Fluids Sodium Chloride via IV site #1 Discontinued: bag #1 completed. Total amount infused: 1000 mL. IV patency established. IV site checked: no pain, redness, or swelling. IV flushed thoroughly. --05:55 03/08/21 Rani Babcock R.N. 05:46 03/08/21. Reassurance given. Reassessment acuity: LEVEL 3. The patient is sleeping and has had no adverse reaction. Overall patient status is improved- she states feels better. Two patient identifiers checked. Call light placed in reach. Side rails up x 2. Bed placed in lowest position. Brakes of bed on. --05:46 03/08/21 Carlos Nicole R.N. 06:13 03/08/21. BP: 118/54. MAP: 75. HR: 77. RR: 17. O2 saturation: 94%. --06:14 03/08/21 Rani Babcock R.N. The patient is calm and resting quietly. --06:14 03/08/21 Rani Babcock R.N. 07:04 03/08/21. BP: 123/75. MAP: 91. HR: 89. RR: 16. O2 saturation: 96%. Pain level now: 0/10. --07:03/08/21 Jaycob Sutton RN ( assumed pt care, pt awake and alert, denies any pain or discomfort at the present, is up ambulating to the bathroom with ). --07:03/08/21 Jaycob Sutton RN 07:03/08/2021 Levofloxacin PO 750 mg given. Allergies verified and confirmed 5 rights. Information reviewed with patient. Verbalizes understanding. --07:03/08/21 Rani Babcock R.N. 07:29 03/08/2021 Site #1 removed upon discharge. Catheter intact. Manual pressure and bandage applied. --:03/08/21 Jaycob Sutton RN.DISPOSITION / DISCHARGE Condition at departure: improved and stable. Discharge instructions provided and reviewed with the patient. Activity restrictions (rest) reviewed. Patient verbalized understanding. Written instructions provided in Welsh. The patient was discharged by the physician. She was discharged home and accompanied by spouse. She left ambulatory and via private vehicle. Spouse driving. --07:03/08/21 5 Clinical Report - Nurses [facility] Emergency Department [address] [place] [address] Phone #: ext- [phone] 03/08/2021 02:39 [id number] Sex: F : 1945 Age: 75y Jaycob Sutton RN 07:29 03/08/21. BP: 134/68. MAP: 90. HR: 80. RR: 16. O2 saturation: 98%. Pain level now: 0/10. --07:03/08/21 Jaycob Sutton RN.Locked/Released at 03/08/2021 07:31 by Jaycob Sutton RN Name Value Range Interpretation Code Description Data Che rce(s) Supporting Document(s) ID Date Data Source [id number] 03/08/2021 02:39:00 AM EDT [facility] 1 Clinical Report - Physicians/Mid Levels [facility] Emergency Department [address] [place] [address] Phone #: ext- [phone] 03/08/2021 02:39 Patient: BEATRIZ CASTANEDA Sex: F : 1945 Age: 75y Arrived- By private vehicle. Historian- patient and family. Disposition decision: 07:20 03/08/2021.HISTORY OF PRESENT ILLNESS Chief Complaint: pain. This started today and is still present. At its maximum, severity described as moderate. When seen in the E.D., severity described as moderate. Modifying factors. Not relieved by anything. The patient has had loss of appetite, weight loss, fatigue and weakness. No headache, visual disturbance or muscle aches. Denies sleep problem. No decreased urine output. (Patient arrives c/o abdaminal pain. Pt reports hx of CA and has baseline of abd pain. Pt reports today abd pain has increased, pt states she has been taking prescribed dilaudid Q4 hrs with little relief.). She has had nausea and abdominal pain. No vomiting, diarrhea or constipation.). Similar symptoms previously. Recent medical care: The patient was seen recently by a health care provider.REVIEW OF SYSTEMSNo fever, sore throat or throat, sinus drainage or nasal congestion. No cough, difficulty breathing, chestpain or difficulty with urination or urination. No skin rash or rash, calf pain or blackouts. No double visionor vision, chills, fever or ear pain. No runny nose, cough, diarrhea, nausea or vomiting. No urinaryfrequency, hematuria, joint pain or seizure. The patient has had abdominal pain, nausea, vomiting, aheadache and back pain. She has had weakness. No difficulty with ambulation.PAST HISTORYSee nurses notes. Problems: Hypertension. Hypercholesterolemia. Additional Surgeries: Carotid Surgery. Mastectomy. (25 YEARS AGO) OPEN HEART SURGERY. Medications: Allopurinol Oral (Tablet 300 mg) 1 tablet, daily. Aspirin Oral (Tablet Chewable 81 mg) 1 tablet, daily. Ergocalciferol Oral (Capsule 1.25 MG (91609 UT)) 1 capsule, monthly ( of the month). HydroCHLOROthiazide Oral (Tablet 25 mg) 1 tablet, daily every AM. 2 Clinical Report - Physicians/[facility] Emergency Department [address] [place] [address] Phone #: ext- [phone] 03/08/2021 02:39 Patient: BEATRIZ CASTANEDA Sex: F : 1945 Age: 75y HYDROmorphone HCl Oral (Tablet 2 mg) 1 tablet, q4h as needed, moderate to severe pain. Lovaza Oral (Capsule 1 gm) 2 capsules, 2x a day. Metoprolol Tartrate Oral (Tablet 25 mg) 1/2 tablet, 2x a day. Prochlorperazine Maleate Oral (Tablet 10 mg) 1 tablet, q6h as needed, nausea vomiting. Simvastatin Oral 20 mg, daily at bedtime. Sulfamethoxazole-Trimethoprim Oral (Tablet 800-160 mg) 1 tablet, 2x a day (saturday). Tylenol Oral (Tablet 325 mg) 2 tablets, q4h as needed, mild pain. Zofran Oral (Tablet 4 mg) 1 tablet, q6h as needed, nausea. Allergies: Penicillins. (BREAKOUT x1).SOCIAL HISTORYNo drug use.ADDITIONAL NOTESThe nursing notes have been reviewed.PHYSICAL EXAMVital Signs: 03/08/2021 02:40 BP: 109/71. MAP: 83. HR: 114. RR: 19. O2 saturation: 98% on room air.Temp: 97.7 F. Pain level now: 10/10. Have been reviewed and appear to be correct. Blood pressurenormal. Mean arterial pressure- normal. Heart rate normal. Respiratory rate normal. Temperaturenormal. Oxygen saturation normal.Appearance: Alert. No acute distress.Eyes: Pupils equal, round and reactive to light. Eyes normal inspection.ENT: Ears normal. Nose normal. Dry mucous membranes present.Neck: Normal inspection. Neck supple.CVS: Normal heart rate and rhythm. Heart sounds normal. Pulses normal.Respiratory: No respiratory distress. Breath sounds normal. Chest nontender.Abdomen: No visible injury. Soft.Back: Normal inspection. No CVA tenderness.Skin: Skin warm and dry. Normal skin turgor.Extremities: Extremities exhibit normal ROM. No lower extremity edema.Neuro: Oriented X 3. No motor deficit. No sensory deficit.LABS, X-RAYS, AND EKGLaboratory Tests: CBC w Diff: (REINA: 03/08/2021 03:48) ( MsgRcvd 03/08/2021 05:32) Final results Test Result Flag Units (Reference) CBC W/AUTOMATED DIFF COMPLETE BLOOD COUNT WBC 0.1 LL 10/uL (4.2 - 11.0) CALL/ READ BACK SHAYY PIKE BY: MILIND DATE/TIME [id number] RBC 3.12 L 10/uL (4.20 - 5.40) 3 Clinical Report - Physicians/Mid Levels [facility] Emergency Department [address] [place] [address] Phone #: ext- [phone] 03/08/2021 02:39 ---- Patient: BEATRIZ CASTANEDA Sex: F : 1945 Age: 75y HEMOGLOBIN 10.1 L g/dL (12.0 - 16.0) HEMATOCRIT 28.0 L % (37.0 - 47.0) MCV 89.7 fL (81.0 - 101) MCH 32.4 pg (27.0 - 34.0) MCHC 36.1 H g/dL (31.0 - 36.0) RDW 11.5 % (11.5 - 14.5) PLATELETS 65 L 10/uL (150 - 450) MPV 10.1 fL (7.4 - 10.4) NEUT 9.1 L % (37.0 - 80.0) LYMPH 63.6 H % (25.0 - 40.0) MONO 9.1 H % (3.0 - 8.0) EOS 18.2 H % (0.0 - 7.0) BASO 0.0 % (0.0 - 2.5) %IG 0.0 % (0.0 - 0.0) %NRBC 0.0 % (0.0 - 0.0) #NEUT 0.01 L 10/uL (2.00 - 6.90) #LYMPH 0.07 L 10/uL (0.60 - 3.40) #MONO 0.01 10/uL (0.00 - 0.90) #EOS 0.02 10/uL (0.00 - 0.70) #BASO 0.00 10/uL (0.00 - 0.20) #IG 0.00 10/uL (0.00 - 0.10) #NRBC 0.00 10/uL (0.00 - 0.00) MANUAL DIFF SEE BELOW SEGS 8 L % (37 - 80) %LYMPH 66 H % (25 - 40) %MONO 6 % (3 - 8) %EOS 20 H % (0 - 7) 50 CELL COUNT DIFFERENTIAL DONE. RBC MORPH SEE BELOW HYPO 1+ A (NORMAL: NONE { SICKLE CELL (NORMAL: NONE SEEN ) PLT EST DECREASED A (NORMAL: MARY ELLEN COMMENT: CMP: (REINA: 03/08/2021 03:48) ( MsgRcvd 03/08/2021 04:15) Final results Test Result Flag Units (Reference) COMPREHENSIVE METABOLIC PANEL COMPREHENSIVE METABOLIC PANEL SODIUM 133 L mEq/L (134 - 153) POTASSIUM 3.8 mEq/L (3.6 - 5.0) CHLORIDE 98 mEq/L (98 - 107) CO2 26 MEQ/L (22 - 30) GLUCOSE 137 H MG/DL (70 - 99) BUN 19 MG/DL (7 - 21) CREATININE 0.4 L MG/DL (0.7 - 1.5) BUN/CREAT 48 H (8 - 27) TOTAL PROTEIN 5.4 L G/DL (6.3 - 8.2) ALBUMIN 3.4 L G/DL (3.9 - 5.0) GLOBULIN 2.0 L GM/DL (2.4 - 3.2) A/G RATIO 1.7 (0.8 - 2.0) CALCIUM 8.5 MG/DL (8.4 - 10.2) TOTAL BILI 1.0 MG/DL (0.2 - 1.3) ALKALINE PHOS 66 U/L (38 - 126) SGOT/AST 10 U/L (5 - 40) SGPT/ALT 14 U/L (7 - 56) 4 Clinical Report - Physicians/Mid Levels [facility] Emergency Department [address] [place] [address] Phone #: ext- [phone] 03/08/2021 02:39 Patient: BEATRIZ CASTANEDA Sex: F : 1945 Age : 75y ANION GAP 9.0 mmol/L (8.0 - 16.0) AGE 75 yrs NON-AA GFR >60 mL/min AFR AMER GFR >60 Male GFR Interprentation 20-49 yrs >60 mL/min Normal 50-59 yrs >56 mL/min Normal 60-69 yrs >49 mL/min Normal 70-79yrs >42 mL/min Normal 80 and above >35 mL/min Normal Female GFR Interpretation 20-39 yrs >60 mL/min Normal 40-49 yrs >58 mL/min Normal 50-59 yrs >51 mL/min Normal 60-69 yrs >45 mL/min Normal 70-79 yrs >39 mL/min Normal 80 and above >32 mL/min Normal Magnesium: (REINA: 03/08/2021 03:48) ( MsgRcvd 03/08/2021 04:15) Final results Test Result Flag Units (Reference) MAGNESIUM 1.8 MG/DL (1.7 - 2.2).PROGRESS AND PROCEDURESCourse of Care: pt is a 75 year old female who has lymphoma who presented to the ED for worsening ofher chronic pain. sheis on dilaudid at home. she received im dilaudid and odt zofran. she felt better.she kept discussing her weakness. I ordered a cbc and cmp. her ANC is 9.1 she has not had a fever.I repeatedly asked the patient.I spoke to her oncologist. He states if she does not have a fever, she doesnot need antibiotics. he stated she had neulasta and it is expected for her anc to be low. she did receiveher first dose of levaquin. will not prescribe her a prescription for any antibiotics. Patient/family counseled. Disposition: Condition: good and stable.CLINICAL IMPRESSION Weakness. Neutropenia associated with cancer chemotherapy.INSTRUCTIONS Rest. (Please keep your follow up appt with your oncologist on saturday. return if worse or any new symptoms.). Warnings: Further evaluation is necessary. GENERAL WARNINGS: Return or contact your physician i mmediately if your condition worsens or changes unexpectedly, if not improving as expected, or if other problems arise. Your Current Medications: Your current home medications have been reviewed. CONTINUE TAKING THE FOLLOWING MEDICATIONS: 5 Clinical Report - Physicians/Mid Levels [facility] Emergency Department [address] [place] [address] Phone #: ext- [phone] 03/08/2021 02:39 Patient: BEATRIZ CASTANEDA Sex: F : 1945 Age: 75y Allopurinol Oral : Tablet 300 mg, 1 tablet daily. Aspirin Oral : Tablet Chewable 81 mg, 1 tablet daily. Ergocalciferol Oral : Capsule 1.25 MG (48291 UT), 1 capsule monthly, 1st of the month. HydroCHLOROthiazide Oral : Tablet 25 mg, 1 tablet daily, every AM. HYDROmorphone HCl Oral : Tablet 2 mg, 1 tablet q4h, prn, moderate to severe pain. Lovaza Oral : Capsule 1 gm, 2 capsules 2x a day. Metoprolol Tartrate Oral : Tablet 25 mg, 1/2 tablet 2x a day. Prochlorperazine Maleate Oral : Tablet 10 mg, 1 tablet q6h, prn, nausea vomiting. Simvastatin Oral : 20 mg daily, at bedtime. Tylenol Oral : Tablet 325 mg, 2 tablets q4h, prn, mild pain. Zofran Oral : Tablet 4 mg, 1 tablet q6h, prn, nausea. Sulfamethoxazole-Trimethoprim Oral : Tablet 800-160 mg, 1 tablet 2x a day, saturday. Prescription Medications: levofloxacin 750 mg tablet Take 1 tablet once a day -- Dispense 10 tablet. Refills: 0. Substitution permitted. Pharmacy - [id number] - [id number] ; [place], [place] [id number]. . Follow-up: Follow up with a specialist oncologist even if well. Call for an appointment. Reason for referral: evaluation. Summary of care provided to patient via paper. Understanding of the discharge instructions verbalized by patient.(Electronically signed by Mary Ellen Mcfarland MD 03/08/2021 07:24) Name Value Range Interpretation Code Description Data Che rce(s) Supporting Document(s) ID Date Data Source [id number] 03/08/2021 03:48:00 AM EDT [place] ([facility]) Name Value Range Interpretation Code Description Data Che rce(s) Supporting Document(s) Reported Physicians See Note Reported [facility] ([facility]) Note: Reported Physicians:Ordering: COON EY, MARY ELLEN LAttending: MAMI, NORMAConsulting: JUAN PABLO, JOCELYNCopy To: MAMI, NORMACopy To: MAMI, NORMACopy To: Juan Pablo, Vladislav ID Date Data Source [id number] 03/08/2021 03:48:00 AM EDT [place] ([facility]) Name Value Range Interpretation Code Description Data Che rce(s) Supporting Document(s) Magnesium [Mass/volume] in Urine collected for unspecified durat ion 1.8 MG/DL MAGNESIUM [place] ([facility]) Note: Responsible Observer: (MLE) ID Date Data Source [id number] 03/08/2021 03:48:00 AM EDT [place] ([facility]) Name Value Range Interpretation Code Description Data Che rce(s) Supporting Document(s) Reported Physicians See Note Reported [facility] ([facility]) Note: Reported Physicians:Ordering: COON EY, MARY ELLEN LAttending: MAMI, NORMAConsulting: JUAN PABLO, JOCELYNCopy To: MAMI, NORMACopy To: MAMI, NORMACopy To: Juan Pablo, Vladislav ID Date Data Source [id number] 03/08/2021 03:48:00 AM EDT [place] ([facility]) Name Value Range Interpretation Code Description Data Che rce(s) Supporting Document(s) A/G RATIO 1.7 A/G RATIO [place] ([facility]) Note: Responsible Observer: (MLE) AFR AMER GFR >60 AFR AMER GFR [place] ([facility]) Note: Male GFR Interprentation 20- 49 yrs >60 mL/min Normal 50-59 yrs >56 mL/min Normal 60-69 yrs >49 mL/min Normal 70- 79yrs >42 mL/min Normal 80 and above >35 mL/min Normal Female GFR Interpretation 20-39 yrs >60 mL/min Normal 40-49 yrs >58 mL/min Normal 50-59 yrs >51 mL/min Normal 60-69 yrs >45 mL/min Normal 70-79 yrs >39 mL/min Normal 80 and above >32 mL/min NormalResponsible Observer: (MLE) Egg donor age 75 yrs AGE [place] ([facility]) Note: Responsible Observer: (MLE) Albumin [Mass/volume] in Blood by Bromocresol purple ( BCP) dye binding method 3.4 G/DL Below low normal ALBUMIN [place] ([facility]) Note: Responsible Observer: (MLE) ALKALINE PHOS 66 U/L ALKALINE PHOS [place] ([facility]) Note: Responsible Observer: (MLE) Anion gap in Body fluid 9.0 mmol/L [facility] Note: Responsible Observer: (MLE) BUN 19 MG/DL BUN [place] ([facility]) Note: Responsible Observer: (MLE) BUN/CREAT 48 Above high normal BUN/CREAT [facility] ([facility]) Note: Responsible Observer: (MLE) Calcium [Moles/volume] in Urine collected for unspecified durati on 8.5 MG/DL CALCIUM [place] ([facility]) Note: Responsible Observer: (MLE) Chloride [Moles/volume] in Serum, Plasma or Blood 98 mEq/L CHLORIDE [place] ([facility]) Note: Responsible Observer: (MLE) CO2 26 MEQ/L CO2 [place] ([facility]) Note: Responsible Observer: (MLE) COMPREHENSIVE METABOLIC PANEL See Note COMPRE HENSIVE METABOLIC PANEL [place] ([facility]) Note: COMPREHENSIVE METABOLIC PANELR esponsible Observer: (MLE) Creatinine [Moles/volume] in Vitreous fluid 0.4 MG/DL Below low normal CREATININE [place] ([facility]) Note: Responsible Observer: (MLE) Globulin [Mass/time] in 24 hour Urine 2.0 GM/DL Below low normal GLOBULIN [place] ([facility]) Note: Responsible Observer: (MLE) Glucose [Mass/volume] in Urine collected for unspecified duratio n 137 MG/DL Above high normal GLUCOSE [place] ([facility]) Note: Responsible Observer: (MLE) NON-AA GFR >60 mL/min NON-AA GFR [place] ([facility]) Note: Responsible Observer: (MLE) Potassium [Mass/volume] in Blood 3.8 mEq/L POT ASSIUM [place] ([facility]) Note: Responsible Observer: (MLE) SGOT/AST 10 U/L SGOT/AST [place] ([facility]) Note: Responsible Observer: (MLE) SGPT/ALT 14 U/L SGPT/ALT [place] ([facility]) Note: Responsible Observer: (MLE) Sodium [Moles/volume] in Serum, Plasma or Blood 133 mEq/L Below low normal SODIUM [place] ([facility]) Note: Responsible Observer: (MLE) TOTAL BILI 1.0 MG/DL TOTAL BILI [place] ([facility]) Note: Responsible Observer: (MLE) TOTAL PROTEIN 5.4 G/DL Below low normal [facility]OTE[facility] Note: Responsible Observer: (MLE) ID Date Data Source [id number] 03/08/2021 03:48:00 AM EDT [place] ([facility]) Name Value Range Interpretation Code Description Data Che rce(s) Supporting Document(s) Reported Physicians See Note Reported Physici ans [place] ([facility]) Note: Reported Physicians:Ordering: MARY ELLEN DONOVAN LAttending: PAULINA MCFARLANDAConsulting: VLADISLAV OSORIOCopjessee To: MAMI NORMACopy To: PAULINA MCFARLANDACopy To: Vladislav Osorio ID Date Data Source [id number] 03/08/2021 03:48:00 AM EDT [place] ([facility]) Name Value Range Interpretation Code Description Data Che rce(s) Supporting Document(s) #BASO 0.00 10\\^3/uL #BASO [place] ([facility]) Note: Responsible Observer: (MLE) #EOS 0.02 10\\^3/uL #EOS [place] ([facility]) Note: Responsible Observer: (MLE) #IG 0.00 10\\^3/uL #IG [place] ([facility]) Note: Responsible Observer: (MLE) #LYMPH 0.07 10\\^3/uL Below low normal #LYMPH [facility] ([facility]) Note: Responsible Observer: (MLE) #MONO 0.01 10\\^3/uL #MONO [place] ([facility]) Note: Responsible Observer: (MLE) #NEUT 0.01 10\\^3/uL Below low normal #NEUT [facility] ([facility]) Note: Responsible Observer: (MLE) #NRBC 0.00 10\\^3/uL #NRBC [place] ([facility]) Note: Responsible Observer: (MLE) %EOS 20 % Above high normal %EOS [place] ([facility]) Note: 50 CELL COUNT DIFFERENTIAL DONE.Re sponsible Observer: (MLE) %IG 0.0 % %IG [place] ([facility]) Note: Responsible Observer: (MLE) %LYMPH 66 % Above high normal %LYMPH [place] ([facility]) Note: Responsible Observer: (MLE) %MONO 6 % %MONO [place] ([facility]) Note: Responsible Observer: (MLE) %NRBC 0.0 % %NRBC [place] ([facility]) Note: Responsible Observer: (MLE) BASO 0.0 % BASO [place] ([facility]) Note: Responsible Observer: (MLE) BY: MLE BY: [place] ([facility]) Note: Responsible Observer: (MLE) CALL/ READ BACK LM, RN CALL/ READ BACK [place] NWMON[place] ([facility]) Note: Responsible Observer: (MLE) CBC W/AUTOMATED DIFF See Note CBC W/AUTOMATED DIFF [place] ([facility]) Note: COMPLETE BLOOD COUNTResponsibl e Observer: (MLE) DATE/TIME [id number] DATE/TIME [place] ([facility]) Note: Responsible Observer: (MLE) EOS 18.2 % Above high normal EOS [place] ([facility]) Note: Responsible Observer: (MLE) Hematocrit [Pure volume fraction] of Blood by Automated count 28 .0 % Below low normal HEMATOCRIT [place] ([facility]) Note: Responsible Observer: (MLE) Hemoglobin [Mass/volume] in Mixed venous blood by Oximetry 10.1 g/dL Below low normal HEMOGLOBIN [place] ([facility]) Note: Responsible Observer: (MLE) HYPO 1+ Abnormal (applies to non-numeric res ults) HYPO [place] ([facility]) Note: { SICKLE CELL (NORMAL: NONE SEEN )Responsible Observer: (MLE) LYMPH 63.6 % Above high normal LYMPH [place] ([facility]) Note: Responsible Observer: (MLE) MANUAL DIFF SEE BELOW MANUAL DIFF [place] ([facility]) Note: Responsible Observer: (MLE) MCH 32.4 pg MCH [place] ([facility]) Note: Responsible Observer: (MLE) MCHC 36.1 g/dL Above high normal MCHC [place] ([facility]) Note: Responsible Observer: (MLE) MCV 89.7 fL MCV [place] ([facility]) Note: Responsible Observer: (MLE) MONO 9.1 % Above high normal MONO [place] ([facility]) Note: Responsible Observer: (MLE) MPV 10.1 fL MPV [place] ([facility]) Note: Responsible Observer: (MLE) NEUT 9.1 % Below low normal NEUT [place] ([facility]) Note: Responsible Observer: (MLE) Platelets [#/area] in Blood by Microscopy high power field 65 10 \\^3/uL Below low normal PLATELETS [place] ([facility]) Note: Responsible Observer: (MLE) PLT EST DECREASED Abnormal (applies to non-numeric res ults) PLT EST [place] ([facility]) Note: COMMENT: Responsible Observer: (MLE) RBC 3.12 10\\^6/uL Below low normal RBC [place] ([facility]) Note: Responsible Observer: (MLE) RBC MORPH SEE BELOW RBC MORPH [place] ([facility]) Note: Responsible Observer: (MLE) RDW 11.5 % RDW [place] ([facility]) Note: Responsible Observer: (MLE) SEGS 8 % Below low normal SEGS [place] ([facility]) Note: Responsible Observer: (MLE) WBC 0.1 10\\^3/uL Below lower panic limits WBC [place] ([facility]) Note: Responsible Observer: (MLE) ID Date Data Source [id number] 03/08/2021 05:25:00 AM EDT [facility] Name Value Range Interpretation Code Description Data Che rce(s) Supporting Document(s) CBC W/AUTOMATED DIFF [facility] COMPLETE BLOOD COUNT Leukocytes [#/volume] in Blood by Automated count 0.1 10^3/uL 4.2 - 1 1.0 LL [facility] CALL/ READ BACK LM, RN [facility] BY: MLE [facility] DATE/TIME [id number] [facility] Erythrocytes [#/volume] in Blood by Automated count 3.12 10^6/uL 4. 20 - 5.40 L [facility] Hemoglobin [Mass/volume] in Blood 10.1 g/dL 12.0 - 16.0 L [facility] Hematocrit [Volume Fraction] of Blood by Automated count 28.0 % 3 7.0 - 47.0 L [facility] Erythrocyte mean corpuscular volume [Entitic volume] by Auto mated count 89.7 fL 81.0 - 101 [facility] Erythrocyte mean corpuscular hemoglobin [Entitic mass] by Automated count 32.4 pg 27.0 - 34.0 [facility] Erythrocyte mean corpuscular hemoglobin concentration [Mass/volume] by Automated count 36.1 g/dL 31.0 - 36.0 H [facility] Erythrocyte distribution width [Ratio] by Automated count 11.5 % 11.5 - 14.5 [facility] Platelets [#/volume] in Blood by Automated count 65 10^3/uL 150 - 450 L [facility] Platelet mean volume [Entitic volume] in Blood by Automated count 10.1 fL 7.4 - 10.4 [facility] Neutrophils/100 leukocytes in Blood by Automated count 9.1 % 37. 0 - 80.0 L [facility] Lymphocytes/100 leukocytes in Blood by Manual count 63.6 % 25.0 - 40.0 H [facility] Monocytes/100 leukocytes in Blood by Automated count 9.1 % 3.0 - 8.0 H [facility] Eosinophils/100 leukocytes in Blood by Automated count 18.2 % 0.0 - 7.0 H [facility] Basophils/100 leukocytes in Blood by Automated count 0.0 % 0.0 - 2.5 [facility] %IG 0.0 % 0.0 - 0.0 [facility] 0.0 % 0.0 - 0.0 [facility] al Neutrophils [#/volume] in Blood by Automated count 0.01 10^3/uL 2.00 - 6.90 L [facility] Lymphocytes [#/volume] in Blood by Automated count 0.07 10^3/uL 0.60 - 3.40 L [facility] Monocytes [#/volume] in Blood by Automated count 0.01 10^3/uL 0.00 - 0.90 [facility] Eosinophils [#/volume] in Blood by Automated count 0.02 10^3/uL 0.00 - 0.70 [facility] Basophils [#/volume] in Blood by Automated count 0.00 10^3/uL 0.00 - 0.20 [facility] #IG 0.00 10^3/uL 0.00 - 0.10 [facility] #NRBC 0.00 10^3/uL 0.00 - 0.00 [facility] MANUAL DIFF SEE BELOW [facility] Segmented neutrophils/100 leukocytes in Blood by Manual count 8 % 37 - 80 L [facility] %LYMPH 66 % 25 - 40 [facility] %MONO 6 % 3 - 8 [facility] %EOS 20 % 0 - 7 H [facility] 50 CELL COUNT DIFFERENTIAL DONE. RBC MORPH SEE BELOW [facility] HYPO 1+ NORMAL: NONE SEEN A [facility] { SICKLE CELL (NORMAL: NONE SEEN ) Platelet adequacy [Presence] in Blood by Light microscopy DE CREASED NORMAL: NORMAL A [facility] COMMENT: ID Date Data Source [id number] 03/08/2021 04:15:00 AM EDT [facility] Name Value Range Interpretation Code Description Data Che rce(s) Supporting Document(s) Magnesium [Mass/volume] in Serum or Plasma 1.8 MG/DL 1.7 - 2.2 [facility] ID Date Data Source [id number] 03/08/2021 04:15:00 AM EDT [facility] Name Value Range Interpretation Code Description Data Che rce(s) Supporting Document(s) COMPREHENSIVE METABOLIC PANEL [facility] COMPREHENSIVE METABOLIC PANEL Sodium [Moles/volume] in Serum or Plasma 133 mEq/L 134 - 153 L [facility] Potassium [Moles/volume] in Serum or Plasma 3.8 mEq/L 3.6 - 5.0 [facility] Chloride [Moles/volume] in Serum or Plasma 98 mEq/L 98 - 107 [facility] Carbon dioxide, total [Moles/volume] in Serum or Plasma 26 MEQ/L 22 - 30 [facility] Glucose [Mass/volume] in Serum or Plasma 137 MG/DL 70 - 99 H [facility] BUN 19 MG/DL 7 - 21 [facility] Creatinine [Mass/volume] in Serum or Plasma 0.4 MG/DL 0.7 - 1.5 L [facility] BUN/CREAT 48 8 - 27 H [facility] al Protein [Mass/volume] in Serum or Plasma 5.4 G/DL 6.3 - 8.2 L [facility] Albumin [Mass/volume] in Serum or Plasma 3.4 G/DL 3.9 - 5.0 L [facility] Globulin [Mass/volume] in Serum by calculation 2.0 GM/DL 2.4 - 3.2 L [facility] A/G RATIO 1.7 0.8 - 2.0 [facility] al Calcium [Mass/volume] in Serum or Plasma 8.5 MG/DL 8.4 - 10.2 [facility] Bilirubin.total [Mass/volume] in Serum or Plasma 1.0 MG/DL 0.2 - 1.3 [facility] Alkaline phosphatase [Enzymatic activity/volume] in Serum or Plasma 66 U/L 38 - 126 [facility] Aspartate aminotransferase [Enzymatic activity/volume] in Serum or Plasma 10 U/L 5 - 40 [facility] Alanine aminotransferase [Enzymatic activity/volume] in Seru m or Plasma 14 U/L 7 - 56 [facility] Anion gap 3 in Serum or Plasma 9.0 mmol/L 8.0 - 16.0 [facility] AGE 75 yrs [facility] NON-AA GFR >60 mL/min [facility] AFR AMER GFR >60 [facility] Male GFR In terprentation 20-49 yrs >60 mL/min Normal 50-59 yrs >56 mL/min Normal 60-69 yrs >49 mL/min Normal 70-79yrs >42 mL/min Normal 80 and above >35 mL/min Normal Female GFR Interpretation 20-39 yrs >60 mL/min Normal 40-49 yrs >58 mL/min Normal 50-59 yrs >51 mL/min Normal 60-69 yrs >45 mL/min Normal 70-79 yrs >39 mL/min Normal 80 and above >32 mL/min Normal ID Date Data Source [id number] 03/03/2021 08:47:51 AM EDT [address] [id number] Name: BEATRIZ Quinn WORKMANDOB: 1945Sex: FOrdering Provider: ABRIL Parker Prov: ABRIL Sen Provider: Procedure Performed: IR PORT INSERTIONExam Date: 03/02/2021 11:25MRN: [id number] Number: [id number] Class: InpatientAccount #: [id number] for Exam: Diffuse large B-cell lymphomaFluoroscopy time: 120 SecondsNumber of Spot Images: 2Procedure: This is a 75-year-old female with diffuse large B-cell lymphoma. Long-term venous access is needed for chemotherapy. Port insertion has been requested. Informed consent was obtained. Potential complications of the procedure include but are not limited to: bleeding, infection, injury to adjacent blood vessels or organs and medication reaction. The procedure, site, side and patient identification were verified during a "time out" as per department protocol. The patient was prepped and draped in the usual sterile fashion. Sterile barrier technique was utilized throughout the procedure. Moderate sedation was administered. Initially, 2 attempts were made to access the right internal jugular vein but they were both unsuccessful. Ultrasound was then used to verify that the left internal jugular vein was patent. Local anesthesia was obtained in the left neck with 1% lidocaine with epinephrine. A #11 blade was used to make a small inc ision in the neck. Under ultrasound guidance with image documentation, the right internal jugular vein was accessed with a 21-gauge needle. A guidewire was inserted through the needle and the needle was removed. A 5-Kyrgyz catheter was placed over the wire and the wire was removed. A 0.035 inch guidewire was then placed and a peel-away sheath was inserted over the guidewire. A left infraclavicular location was then chosen for the creation of a subcutaneous pocket. Local anesthesia was obtained with 1% lidocaine with epinephrine. An approximately 3 cm transverse incision was made in the skin of the upper chest with a #15 blade. Blunt and sharp dissection were used to create the pocket. A subcutaneous tunnel was then created from the pocket to the puncture site in the neck. The catheter was passed through this tunnel using a tunneling device and was connected to the port which was then placed in the pocket. The tip of the catheter was passed through the peel-away sheath and the sheath was removed. A fluoroscopic digital spot image was obtained and demonstrated the tip of the catheter to be near the junction of the superior vena cava and the right atrium. The fluoroscopic image was documented. The catheter measured 25 cm in length. There was no kinking of the catheter. The port aspirated and flushed easily. The chest incision was closed in 2 layers. The deep layer was closed with two 2-0 Vicryl interrupted sutures and the skin was closed with a 4-0 Vicryl running subcuticular stitch and Dermabond. Dressings were applied. There were no immediate complications noted. The patient tolerated the procedure well. The procedure was performed by Delroy Rosario PA-C under the direct supervision of Dr. Smith. Approximately 84 minutes of moderate sedation services were rendered during the procedure. The patient received Versed 3 mg IV and fentanyl 150 mcg IV during the procedure. There was an interventional radiology registered nurse present in the room to assist in the monitoring of the patient's level of consciousness and physiologic status.Impression: Ultrasound and fluoroscopic digital spot image guided CT injectable port placement as described above.Report electronically approved by: DELROY ROSARIO On 03/02/2021 3:46 PMThe procedure described above was performed under my supervision and I agree with this reportReport electronically signed by: HAJA SMITH On 03/03/2021 8:47 AMWorkstation ID: [id number] - [id number] Name Value Range Interpretation Code Description Data Che rce(s) Supporting Document(s) ID Date Data Source [id number] 03/02/2021 10:48:00 PM EDT [facility] 1 OrderSheet [facility] Emergency Department [address] [place] [address] Phone #: ext- [phone] 03/02/2021 22:48 Patient: BEATRIZ CASTANEDA Sex: F : 1945 Age: 75yWEIGHT:58.0 kg (S)ALLERGIES: PenicillinsCHIEF COMPLAINT: vomitingDIAGNOSIS: Hypokalemia, O/E - dehydrated, VomitingLAB ORDERSOrder Description Priority Entered Acknowledged InitialedCBC w Diff STAT 23:02 03/02/2021 23:13 Mami Nicole Norma MD; Carlos HiCMP STAT 23:02 03/02/2021 23:13 Mami Nicole Norma MD; Carlos HiLactic Acid STAT 23:02 03/02/2021 23:13 Mami Nicole Norma MD; Carlos HiLipase STAT 23:02 03/02/2021 23:13 Mami Nicole Norma MD; Carlos HiUrinalysis (Clean STAT 23:02 03/02/2021 02:40 03/03/2021atch) Mary Ellen Redman MD; Carlos Nicole R.N.Lactic Acid STAT 00:28 03/03/2021 01:13 Mami Nicole Norma MD; Carlos Hi NOTES: draw at 1:30amDIAGNOSTIC STUDY ORDERSOrder Description Priority Entered Acknowledged InitialedMEDICATION/IV/DRIP/FLUID ORDERSOrder Description Priority Entered Acknowledged InitialedIV NS 1000 mL 23:02 03/02/2021 23:29 Sorbelvira,Bolus : Bolus 1000 Mary Ellen Mcfarland MD; Carlos HimL (X1)Zofran IVP 4 mg 23:02 03/02/2021 00:41 03/03/2021 Mary Ellen Mcfarland MD; Carlos Nicole R.N.IV NS 500 mL Bolus 23:40 03/02/2021 23:57 Sorbero,: Bolus 500 mL (X1) Mary Ellen Mcfarland MD; Carlos HiPotassium Chloride 00:27 03/03/2021 00:41 Sorbelvira,Liquid PO 20 meq Mary Ellen Mcfarland MD; Carlos Hi(NOW x1) 2 OrderSheet [facility] Emergency Department [address] [place] [address] Phone #: ext- [phone] 03/02/2021 22:48 Patient: BEATRIZ CASTANEDA Sex: F : 1945 Age: 75yIV NS 500 mL Bolus 00:28 03/03/2021 00:42 Sorbero,: Bolus 500 mL (X1) Mary Ellen Mcfarland MD; Carlos HiGENERAL ORDERSOrder Description Priority Entered Acknowledged Initialed[Electronically signed by Mary Ellen Mcfarland MD (03:25 03/03/2021)][Electronically signed by Carlos Nicole R.N. (04:43 03/03/2021)][Electronically locked by Carlos Nicole R.N. (04:43 03/03/2021)] Name Value Range Interpretation Code Description Data Che rce(s) Supporting Document(s) ID Date Data Source [id number] 03/02/2021 10:48:00 PM EDT [facility] 1 Medication Reconciliation Report [facility] Emergency Department [address] [place] [address] Phone #: ext- [phone] 03/02/2021 22:48 Patient: BEATRIZ CASTANEDA Sex: F : 1945 Age: 75yWeight: 58.0 kgHeight/Length: 62 in.BMI: 23.4ALLERGIES: PenicillinsThe patient's Home Medications are listed below:CONTINUE TAKING THE FOLLOWING MEDICATIONS: Allopurinol Oral (300 mg) 1 tablet, daily Aspirin Oral (81 mg) 1 tablet, daily Ergocalciferol Oral (1.25 MG (86484 UT)) 1 capsule, monthly, of the month HydroCHLOROthiazide Oral (25 mg) 1 tablet, daily, every AM HYDROmorphone HCl Oral (2 mg) 1 tablet, q4h, moderate to severe pain, prn Lovaza Oral (1 gm) 2 capsules, 2x a day Metoprolol Tartrate Oral (25 mg) 1/2 tablet, 2x a day Prochlorperazine Maleate Oral (10 mg) 1 tablet, q6h, nausea vomiting, prn Simvastatin Oral 20 mg, daily, at bedtime Sulfamethoxazole-Trimethoprim Oral (800-160 mg) 1 tablet, 2x a day, saturday Tylenol Oral (325 mg) 2 tablets, q4h, mild pain, prn Zofran Oral (4 mg) 1 tablet, q6h, nausea, prnThe source(s) of the original Home Medication information:patientThe following Medications were given to the patient in the Emergency Department: 2 Medication Reconciliation Report [facility] Emergency Department [address] [place] [address] Phone #: ext- [phone] 03/02/2021 22:48 Patient: BEATRIZ CASTANEDA Sex: F : 1945 Age: 75yNS [IV] IV Fluids bolus 0, then 1000 mL/hr, administered: 23:29 03/02/2021NS [IV] IV Fluids bolus 0, then 1000 mL/hr, administered: 23:57 03/02/2021OTASSIUM CHLORIDE LIQUID PO PO 20 meq, administered: 00:41 03/03/2021Zofran [IVP] IVP 4 mg, administered: 00:41 03/03/2021NS [IV] IV Fluids bolus 0, then 1000 mL/hr, administered: 00:42 03/03/2021The following Medications were prescribed to the patient:None. Name Value Range Interpretation Code Description Data Che rce(s) Supporting Document(s) ID Date Data Source [id number] 03/02/2021 10:48:00 PM EDT [facility] 1 Medication Administration Record [facility] Emergency Department [address] [place] [address] Phone #: ext- [phone] 03/02/2021 22:48 Patient: BEATRIZ CASTANEDA Sex: F : 1945 Age: 75yWeight: 58.0 kgHeight/Length: 62 inBMI: 23.4ALLERGIES: Penicillins Date/Time Medication Administered Medication OrderedStart NS [IV] IV NS 1000 mL Bolus : Bolus 888117:29 03/02/2021 Dose: IV Fluids mL (X1)Carlos Nicole RNanetteNNanette Rate: 1000 mL/hr over 1 hour(s)---- Dispensed: 1000 mL bagStop Site: #1 hand01:15 03/03/2021Carlos rivers RNanetteNNanetteGiven ZOFRAN [IVP] (ONDANSETRON HCL) Zofran IVP 4 mg00:41 03/03/2021 Dose: 4 mg IVPSCarlos rivers RNanetteN. Site: #1 handStart NS [IV] IV NS 500 mL Bolus : Bolus 13014:57 03/02/2021 Dose: IV Fluids mL (X1)Carlos Nicole R.N. Rate: 1000 mL/hr over 30 minute(s)---- Dispensed: 500 mL bagStop Site: #1 hand00:40 03/03/2021Carlos rivers R.N.Given POTASSIUM CHLORIDE LIQUID PO Potassium Chloride Liquid PO 2000:41 03/03/2021 Dose: 20 meq Syrup/Liquid PO meq (NOW x1)Carlos Nicole R.N.Start NS [IV] IV NS 500 mL Bolus : Bolus 90807:42 03/03/2021 Dose: IV Fluids mL (X1)Carlos Nicole R.N. Rate: 1000 mL/hr over 30 minute(s)---- Dispensed: 500 mL bagStop Site: #1 hand01:13 03/03/2021Carlos rivers R.N. Name Value Range Interpretation Code Description Data Che rce(s) Supporting Document(s) ID Date Data Source [id number] 03/02/2021 10:48:00 PM EDT [facility] 1 General Instructions [facility] Emergency Department [address] [place] [address] Phone #: ext- [phone] 03/02/2021 22:48 Patient: [id number] Sex: F : 1945 Age: 75yVomiting with nausea.Mild dehydrationHypokalemiaINSTRUCTIONSDrink plenty of fluids.(return if worse or any new symptoms. Please follow up with your oncologist.).Warnings: Further evaluation is necessary.GENERAL WARNINGS: Return or contact your physician immediately if your condition worsens orchanges unexpectedly, if not improving as expected, or if other problems arise.Your Current Medications: Your current home medications have been reviewed.CONTINUE TAKING THE FOLLOWING MEDICATIONS:Allopurinol Oral : Tablet 300 mg, 1 tablet daily.Aspirin Oral : Tablet Chewable 81 mg, 1 tablet daily.Ergocalciferol Oral : Capsule 1.25 MG (58500 UT), 1 capsule monthly, 1st of the month.HYDROmorphone HCl Oral : Tablet 2 mg, 1 tablet q4h, prn, moderate to severe pain.Lovaza Oral : Capsule 1 gm, 2 capsules 2x a day.Metoprolol Tartrate Oral : Tablet 25 mg, 1/2 tablet 2x a day.Prochlorperazine Maleate Oral : Tablet 10 mg, 1 tablet q6h, prn, nausea vomiting.Simvastatin Oral : 20 mg daily, at bedtime.Sulfamethoxazole- Trimethoprim Oral : Tablet 800-160 mg, 1 tablet 2x a day, saturday.Tylenol Oral : Tablet 325 mg, 2 tablets q4h, prn, mild pain.Zofran Oral : Tablet 4 mg, 1 tablet q6h, prn, nausea.HydroCHLOROthiazide Oral : Tablet 25 mg, 1 tablet daily, every AM.Follow-up:Follow up with your doctor tomorrow even if well. Call for an appointment. Reason for referral: evaluation.Summary of care provided to patient via paper.Understanding of the discharge instructions verbalized by patient. ADDITIONAL INFORMATIONDehydration (Adult) 2 General Instructions [facility] Emergency Department [address] [place] [address] Phone #: ext- [phone] 03/02/2021 22:48 Patient: BEATRIZ CASTANEDA Sex: F : 1945 Age: 75yDehydration occurs when your body loses too much fluid. This may be the result of prolongedvomiting or diarrhea, excessive sweating, or a high fever. It may also happen if you don't drinkenough fluid when you're sick or out in the heat. Misuse of diuretics (water pills) can also be a cause.Symptoms include thirst, decreased urine output, and darker colored urine. You may also feel dizzy,weak, fatigued, or very drowsy. The diet described below is usually enough to treat dehydration. Insome cases, you may need medicine.Home care Drink at least 12, 8-ounce glasses of fluid every day to resolve the dehydration. Fluid may include water; orange juice; lemonade; apple, grape, or cranberry juice; clear fruit drinks; electrolyte replacement and sports drinks; and teas and coffee without caffeine. Don't drink alcohol. If you have been diagnosed with a kidney disease, ask your doctor how much and what types of fluids you should drink to prevent dehydration. If you have kidney disease, fluid can build up in the body. This can be dangerous to your health. If you have a fever, muscle aches, or a headache as a result of a cold or flu, you may take acetaminophen or ibuprofen, unless another medicine was prescribed. If you have chronic liver or kidney disease, or have ever had a stomach ulcer or gastrointestinal bleeding, talk with your healthcare provider before using these medicines. Don't take aspirin if you are younger than 18 and have a fever. In children with fever, aspirin raises the chance for severe liver injury and .Follow-up careFollow up with your healthcare provider, or as advised.When to seek medical adviceCall your healthcare provider right away if any of these occur: Continued vomiting Frequent diarrhea (more than 5 times a day); blood (red or black color) or mucus in diarrhea Swollen abdomen or increasing abdominal pain Reduced urine output or extreme thirst Fever of 100.4F (38C) or higherCall 911Call 911 or get medical care right away if you have any of the followin General Instructions [facility] Emergency Department [address] [place] [address] Phone #: ext- [phone] 03/02/2021 22:48 Patient: BEATRIZ CASTANEDA Sex: F : 1945 Age: 75y Weakness, dizziness, or fainting Unusual drowsiness or confusion Blood in vomit or stool [employer]. [address] [place] [address], [place] [address]. All rights reserved. This information is not intended as asubstitute for professional medical care. Always follow your healthcare professional's instructions.Vomiting (Adult)Vomiting is a common symptom that may be due to different causes. These include gastroenteritis("stomach flu"), food poisoning and gastritis. There are other more serious causes of vomiting whichmay be hard to diagnose early in the illness. Therefore, it is important to watch for the warning signslisted below.The main danger from repeated vomiting is dehydration. This is due to excess loss of water andminerals from the body. When this occurs, your body fluids must be replaced.Home care If symptoms are severe, rest at home for t he next 24 hours. Because your symptoms may be from an infection, wash your hands often and well. If soap and water are not available, use alcohol- based concrete crusher loader operator to keep from spreading the infection to others. Wash your hands for at least 20 seconds. Humming the happy birthday song twice while you wash is an easy way to make sure you've washed for 20 seconds. Wash your hands after using the toilet, before and after preparing food, before eating food, after changing a diaper, cleaning a wound, caring for a sick person, and blowing your nose, coughing, or sneezing. You should also wash your hands after caring for someone who is sick, touching pet food, or treats, and touching an animal, or animal waste. You may use acetaminophen or NSAID medicines like ibuprofen or naproxen to control fever, unless another medicine was prescribed. If you have chronic liver or kidney disease or ever had a stomach ulcer or gastrointestinal bleeding, talk with your doctor before using these medicines. Aspirin should never be used in anyone under 18 years of age who is ill with a fever. It may cause severe liver damage. Don't use NSAID medicines if you are already taking one for another condition (like arthritis) or are on aspirin (such as for heart disease, or after a stroke) Don't use tobacco and or drink alcohol, which may wo rsen your symptoms. If medicines for vomiting were prescribed, take as directed. 4 General Instructions [facility] Emergency Department [address] [place] [address] Phone #: ext- [phone] 03/02/2021 22:48 Patient: BEATRIZ CASTANEDA Sex: F : 1945 Age: 75y Once vomiting stops, then follow these guidelines:During the first 12 to 24 hours follow the diet below: Fruit juices. Apple, grape juice, clear fruit drinks, and electrolyte replacement dri nks. Beverages. Soft drinks without caffeine; mineral water (plain or flavored), decaffeinated tea and coffee. Soups. Clear broth and bouillon Desserts. Plain gelatin, ice pops, and fruit juice bars. As you feel better, you may add 6 to 8 ounces of yogurt per day.During the next 24 hours you may add the following to the above: Hot cereal, plain toast, bread, rolls, crackers Plain noodles, rice, mashed potatoes, chicken noodle or rice soup Unsweetened canned fruit such as applesauce, bananas (avoid pineapple and citrus) Limit caffeine and chocolate. No spices or seasonings except salt.During the next 24 hours:Gradually resume a normal diet, as you feel better and your symptoms lessen.Follow-up careFollow up with your healthcare provider, or as advised.When to seek medical adviceCall your healthcare provider right away if any of these occur: Constant right-sided lower belly pain or increasing general belly pain Continued vomiting (unable to keep liquids down) for 24 hours Vomiting blood or coffee grounds Swollen belly Frequent diarrhea (more than 5 times a day); blood (red or black color) or mucus in diarrhea Reduced urine output or extreme thirst Weakness, dizziness or fainting 5 General Instructions [facility] Emergency Department [address] [place] [address] Phone #: ext- [phone] 03/02/2021 22:48 Patient: BEATRIZ CASTANEDA Sex: F : 1945 Age: 75y Unusually drowsy or confused Fever of 100.4F (38C) oral or higher, or as directed Yellow color of the eyes or skin [employer]. [address] [place] [address]. All rights reserved. This information is not intended as asubstitute for professional medical care. Always follow your healthcare professional's instructions.HypokalemiaHypokalemia means a low level of potassium in the blood. This most often occurs in people who takewater pills (diuretics). It can also occur because of severe vomiting or diarrhea. You may also have itif you take laxatives for long periods of time. It sometimes happens if you have low magnesium(hypomagnesemia). If you have this, your healthcare provider will treat the low magnesium first.A mild case of hypokalemia usually causes no symptoms. It is only found with blood testing. Moresevere potassium loss causes overall weakness, muscle or abdominal cramps, rapid or irregularheartbeats (heart palpitations), low blood pressure,muscle weakness, and in some indviduals cancause temporary paralysis. .Home care Take any potassium supplements as prescribed. Eat foods rich in potassium. The highest amount is found in avocado, baked potatoes, spinach, cantaloupe, cod, halibut, salmon, and scallops. White, red, or mtz beans are also very good sources. A modest amount of potassium is found in orange juice, bananas, carrots, and tomato juice. If you take certain types of diuretics, you will also need to take potassium supplements. If you take a diuretic, discuss potassium supplements with your doctor.Follow-up careFollow up with your healthcare provider for a repeat blood test within the next week, or as advised byour staff.When to seek medical adviceCall your healthcare provider right away if any of the following occur: Increased weakness, fatigue, or muscle cramps Dizziness 6 General Instructions [facility] Emergency Department [address] [place] [address] Phone #: ext- [phone] 03/02/2021 22:48 Patient: BEATRIZ CASTANEDA Sex: F : 1945 Age: 75yCall 911Call 911 if any of the following occur: Irregular heartbeat, extra beats, or very fast heart rate Loss of consciousness [phone] [employer]. [address] [place] [address], [place] [address]. All rights reserved. This information is not intended as asubstitute for professional medical care. Always follow your healthcare professional's instructions. You have been given the following additional information: Dehydration (Adult) Vomiting (Adult) Hypokalemia(Electronically signed by Mary Ellen Mcfarland MD 03/03/2021 03:25) Name Value Range Interpretation Code Description Data Che rce(s) Supporting Document(s) ID Date Data Source [id number] 03/02/2021 10:48:00 PM EDT [facility] 1 Clinical Report - Nurses [facility] Emergency Department [address] [place] [address] Phone #: ext- [phone] 03/02/2021 22:48 Patient: BEATRIZ CASTANEDA Sex: F : 1945 Age: 75yTRIAGEArrived by EMS. Historian: patient. Accompanied by family. ( presents with vomiting after 5 days ofchemo therapy for).Triage time: 22:51 03/02/2021. Acuity: LEVEL 3.Chief Complaint: NAUSEA and VOMITING.Alert. No acute distress.This started today. 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 --22:54 03/02/21 Carlos Nicole R.N.22:51 03/02/21. BP: 133/99. MAP: 110. HR: 88. RR: 20. O2 saturation: 98%. Temp: 97.1 F. Pain levelnow: 0/10. --22:54 03/02/21 Carlos Nicole R.N.Weight: 58 kg stated. Height/Length: 62 inches Per Patient. BMI: 23.4. --22:50 03/02/21 Carlos Nicole R.N.MedicationsTylenol Oral (Tablet 325 mg) 2 tablets, q4h as needed, mild pain. --23:05 03/02/21 Carols Nicole R.N. Allopurinol Oral (Tablet 300 mg) 1 tablet, daily. --23:05 03/02/21 Carlos Nicole R.N. HYDROmorphone HCl Oral (Tablet 2 mg) 1 tablet, q4h as needed, moderate to severe pain. --23: S Carlos rivers R.N. Prochlorperazine Maleate Oral (Tablet 10 mg) 1 tablet, q6h as needed, nausea vomiting. --23: Carlos Nicole R.N. Sulfamethoxazole- Trimethoprim Oral (Tablet 800-160 mg) 1 tablet, 2x a day (saturday).--23:08 03/02/21 Carlos Nicole R.N. Aspirin Oral (Tablet Chewable 81 mg) 1 tablet, daily. --23:09 03/02/21 Carlos Nicole R.N. HydroCHLOROthiazide Oral (Tablet 25 mg) 1 tablet, daily every AM. --23:09 03/02/21 Carlos Nicole R.N. Metoprolol Tartrate Oral (Tablet 25 mg) 1/2 tablet, 2x a day. --23:10 03/02/21 Carlos Nicole R.N. Lovaza Oral (Capsule 1 gm) 2 capsules, 2x a day. --23:10 03/02/21 Carlos Nicole R.N. Simvastatin Oral 20 mg, daily at bedtime. --23:11 03/02/21 Carlos Nicole R.N. Ergocalciferol Oral (Capsule 1.25 MG (97768 UT)) 1 capsule, monthly (1st of the month). --23:12 03/02/21Carlos Nicole R.N. Zofran Oral (Tablet 4 mg) 1 tablet, q6h as needed, nausea. --23:12 03/02/21 Carlos Nicole R.N.AllergiesPenicillins. (BREAKOUT x1) --23:04 03/02/21 Carlos Nicole R.N. 2 Clinical Report - Nurses [facility] Emergency Department [address] [place] [address] Phone #: ext- [phone] 03/02/2021 22:48 Patient: BEATRIZ CASTANEDA Sex: F : 1945 Age: 75y PROBLEMS: Hypercholesterolemia. Carotid Artery Disease. Hypertension. Sleep Apnea. Renal Colic. --03:37 03/03/21 Carlos Nicole R.N. Medication/allergy information source: the patient. --22:54 03/02/21 Carlos Nicole R.N. History SOCIAL HX: Never smoker. No alcohol use or drug use. No recent travel. No known contact with a sick individual. She was offered HIV testing but declined and hepatitis C testing but declined. She has not traveled outside the [place] Infec tious disease exposure: No infectious disease exposure. The patient was not exposed to Coronavirus. SELF HARM ASSESSMENT: Self harm assessment was performed. The patient answered "no" to the question(s) "Have you recently felt down, depressed, or hopeless?", "Do you have thoughts of harming or killing yourself?", "Do you have a plan for harming or killing yourself?" and "Have you recently had thoughts about harming or killing others?". ABUSE ASSESSMENT: No report of abuse. FALL RISK ASSESSMENT: Fall risk assessment completed. Risk factors identified include patient age greater than 65 years. --22:54 03/02/21 Carlos Nicole R.N. Assessment The patient states feels the same. --22:54 03/02/21 Carlos Nicole R.N. Interventions Identification and allergy band on patient. To treatment room. --22:54 03/02/21 Carlos Nicole R.N.PHYSICAL [id number] 03/02/21. To room via stretcher. Patient gowned.GENERAL / NEURO / PSYCH: Alert. Oriented X 4. Appears in no acute distress.HEENT: Mucous membranes are pink.RESPIRATORY: Respirations not labored. Breath sounds within normal limits.CVS: Capillary refill less than 2 seconds.GI / : Abdomen soft and nontender. Diminished bowel sounds in all quadrants. No nausea noted.No emesis noted.SKIN: Skin is warm and dry. --23:03 03/02/21 Carlos Nicole R.N.NURSING PROGRESS NOTES22:55 03/02/21. Reassurance given. Two patient identifiers checked. Call light placed in reach. Bed 3 Clinical Report - Nurses [facility] Emergency Department [address] [place] [address] Phone #: ext- [phone] 03/02/2021 22:48 Patient: BEATRIZ CASTANEDA Sex: F : 1945 Age: 75yplaced in lowest position. Brakes of bed on. Patient ready for evaluation- ED physician notified. --22: Carlos Nicole R.N.EKG time: (22:57 03/02/2021). EKG was performed by kai moralez and shown to the ED physician. --22: Narcisa Lugo ED, ER [id number] 03/02/2021 Site #1 started prior to arrival by EMS via IV hand with an 22g angiocath, with aseptictechnique and good blood return; one attempt. Saline lock flushed with 10 mL saline. --23:21 03/02/21Carlos Nicole R.N.23:21 03/02/2021 Site #2 started via IV in the left antecubital space with an 20g angiocath, with aseptictechnique and good blood return; one attempt. Blood drawn: rainbow set. Labeled in the presence of thepatient and sent to the lab. Saline lock flushed with 10 mL saline. --23:21 03/02/21 Carlos Nicole R.NNanette23:29 03/02/2021 Started bag #1 1000 mL IV Fluids NS; at 1000 mL/hr over 1 hour(s) via site #1 via IVpump. Allergies verified and confirmed 5 rights. IV patency established. IV site checked: no pain, redness,or swelling. IV flushed thoroughly pre- and post-medication administration. Information reviewed withpatient including reason for taking this medication, signs of allergic reaction and precautions. Verbalizesunderstanding. --23:29 03/02/21 Carlos Nicole R.NNanette23:30 03/02/21. BP: 99/64. MAP: 75. HR: 92. RR: 17. O2 saturation: 96%. --23:40 03/02/21 [facility] Hjqo457:55 03/02/21. BP: 110/73. MAP: 85. HR: 74. RR: 19. O2 saturation: 96%. --23:55 03/02/21 [facility] Pgsu993:57 03/02/2021 Started bag #1 500 mL IV Fluids NS; at 1000 mL/hr over 30 minute(s) via site #1 via IVpump. Allergies verified and confirmed 5 rights. IV patency established. IV site checked: no pain, redness,or swelling. IV flushed thoroughly pre- and post-medication administration. Information reviewed withpatient including reason for taking this medication, signs of allergic reaction and precautions. Verbalizesunderstanding. --23:57 03/02/21 Carlos Nicole RNanetteNNanette00:26 03/03/21. BP: 133/74. MAP: 93. HR: 76. RR: 17. O2 saturation: 96%. --00:26 03/03/21 [facility] ER Ndsl076:40 03/03/2021 IV Fluids NS via IV site #1 Discontinued: bag #2 completed. Total amount infused: 500mL. IV patency established. IV site checked: no pain, redness, or swelling. IV flushed thoroughly. --00: Carlos Nicole RNanetteNNanette00:41 03/03/2021 POTASSIUM CHLORIDE LIQUID PO PO Syrup/Liquid 20 meq given. Allergies verifiedand confirmed 5 rights. Information reviewed with patient including reason for taking this medication, signsof allergic reaction and precautions. Verbalizes understanding. --00:41 03/03/21 Carlos Nicole R.N.00:41 03/03/2021 Zofran (Ondansetron HCl) IVP 4 mg given over 2 minute(s) via site #1. Allergies verified 4 Clinical Report - Nurses [facility] Emergency Department [address] [place] [address] Phone #: ext- [phone] 03/02/2021 22:48 Patient: BEATRIZ CASTANEDA Sex: F : 1945 Age: 75y and confirmed 5 rights. IV patency established. IV site checked: no pain, redness, or swelling. IV flushed thoroughly pre- and post-medication administration. IVP given by RN. Information reviewed with patient including reason for taking this medication, signs of allergic reaction and precautions. Verbalizes understanding. --00:41 03/03/21 Carlos Nicole RNanetteN. 00:42 03/03/2021 Started bag #3 500 mL IV Fluids NS; at 1000 mL/hr over 30 minute(s) via site #1 via IV pump. Allergies verified and confirmed 5 rights. IV patency established. IV site checked: no pain, redness, or swelling. IV flushed thoroughly pre- and post-medication administration. Information reviewed with patient including reason for taking this medication, signs of allergic reaction and precautions. Verbalizes understanding. --00:42 03/03/21 Carlos Nicole RNanetteN. 00:59 03/03/21. BP: 127/72. MAP: 90. HR: 67. RR: 20. O2 saturation: 95%. --01:00 03/03/21 [facility] Tech1 01:13 03/03/2021 IV Fluids NS via IV site #1 Discon tinued: bag #3 completed. Total amount infused: 500 mL. IV patency established. IV site checked: no pain, redness, or swelling. IV flushed thoroughly. --01:13 03/03/21 Carlos Nicole R.N. 01:15 03/03/2021 IV Fluids NS via IV site #1 Discontinued: bag #1 completed. Total amount infused: 1000 mL. IV patency established. IV site checked: no pain, redness, or swelling. IV flushed thoroughly. --01:26 03/03/21 Carlos Nicole RNanetteN. 01:35 03/03/21. Reassurance given. Reassessment acuity: LEVEL 3. The patient reports no complaints, she is calm, resting quietly and sleeping and she has had no adverse reaction. Overall patient status is improved- she states feels better. Two patient identifiers checked. Call light placed in reach. Side rails up x 2. Bed placed in lowest position. Brakes of bed on. --01:36 03/03/21 Carlos Nicole R.N. 01:56 03/03/21. BP: 108/65. MAP: 79. HR: 77. RR: 19. O2 saturation: 94%. --01:56 03/03/21 [facility] Tech1 02:58 03/03/21. BP: 128/73. HR: 75. RR: 23. O2 saturation: 91%. --02:58 03/03/21 [facility] Tech1.DISPOSITION / DISCHARGE 03:23 03/03/21. BP: 141/73. MAP: 95. HR: 81. RR: 22. O2 saturation: 94%. Temp: 98.1 F. Pain level now: 10/05. --03:23 03/03/21 [facility] TechNarcisa ER Tech1 03:26 03/03/21. Departure time: 03:36 03/03/2021. Condition at departure: improved and stable. The goals identified in the patient's plan of care were met. Fall risk assessment completed. Risk factors identified include patient age greater than 65 years. No learning barriers present. Discharge instructions provided and reviewed with the patient and family. Reviewed warnings. Reviewed medication(s). Treatments reviewed. Reviewed referral to an oncologist. Patient verbalized understanding. Written instructions provided in Welsh. The patient was discharged by the physician. She was discharged home and accompanied by 5 Clinical Report - Nurses [facility] Emergency Department [address] [place] [address] Phone #: ext- [phone] 03/02/2021 22:48 Patient: [id number] Sex: F : 1945 Age: 75y family. She left ambulatory and via private vehicle. Family member driving. --03:36 03/03/21 Carlos Nicole R.N. 03:26 03/03/2021 Site #1 removed upon discharge. Catheter intact. Bandage applied. --03:36 03/03/21 Carlos Nicole R.N. 03:26 03/03/2021 Site #2 removed upon discharge. Catheter intact. Bandage applied. --03:37 03/03/21 Carlos Nicole R.N.Locked/Released at 03/03/2021 04:43 by Carlos Nicole R.N. Name Value Range Interpretation Code Description Data Che rce(s) Supporting Document(s) ID Date Data Source [id number] 03/02/2021 10:48:00 PM EDT [facility] 1 Clinical Report - Physicians/Mid Levels [facility] Emergency Department [address] [place] [address] Phone #: ext- [phone] 03/02/2021 22:48 Patient: BEATRIZ CASTANEDA Sex: F : 1945 Age: 75y Arrived- By private vehicle. Historian- patient. Disposition decision: 03:22 03/03/2021.HISTORY OF PRESENT ILLNESS Chief Complaint: VOMITING. This started just prior to arrival and is still present. No recent travel. She has had nausea and vomiting. No diarrhea, black stools, bloody stools, abdominal pain or constipation. No flank pain. The illness is described as moderate. (Pt has B cell lymphoma. she finished 5 days of chemotherapy. she was at [facility]. she states that she vomited the entire way home. she presented for evaluation.). Similar symptoms previously. Recent medical care: The patient was seen recently and hospitalized.REVIEW OF SYSTEMSNo fever, muscle aches, difficulty with urination or urination or headache. No dizziness, sore throat orthroat or chest pain or pain. No difficulty breathing, excessive urination, skin rash or rash or jaundi ce. Noback pain or pain, fainting episodes, blurred vision or chills. No fever, double vision, ear pain, epistaxis orcough. No urinary frequency, hematuria, headache, seizure or easy bruising. The patient has hadnausea and vomiting.PAST HISTORYSee nurses notes. Problems: Hypercholesterolemia. Carotid Artery Disease. Hypertension. Sleep Apnea. Renal Colic. Additional Surgeries: Carotid Surgery. Mastectomy. (25 YEARS AGO) OPEN HEART SURGERY. Medications: Zofran Oral (Tablet 4 mg) 1 tablet, q6h as needed, nausea. 2 Clinical Report - Physicians/Mid Levels [facility] Emergency Department [address] [place] [address] Phone #: ext- [phone] 03/02/2021 22:48 Patient: BEATRIZ CASTANEDA [facility]#: [id number] Sex: F : 1945 Age: 75y Ergocalciferol Oral (Capsule 1.25 MG (04531 UT)) 1 capsule, monthly ( of the month). Simvastatin Oral 20 mg, daily at bedtime. Lovaza Oral (Capsule 1 gm) 2 capsules, 2x a day. Metoprolol Tartrate Oral (Tablet 25 mg) 1/2 tablet, 2x a day. HydroCHLOROthiazide Oral (Tablet 25 mg) 1 tablet, daily every AM. Aspirin Oral (Tablet Chewable 81 mg) 1 tablet, daily. Sulfamethoxazole-Trimethoprim Oral (Tablet 800-160 mg) 1 tablet, 2x a day (saturday). Prochlorperazine Maleate Oral (Tablet 10 mg) 1 tablet, q6h as needed, nausea vomiting. HYDROmorphone HCl Oral (Tablet 2 mg) 1 tablet, q4h as needed, moderate to severe pain. Allopurinol Oral (Tablet 300 mg) 1 tablet, daily. Tylenol Oral (Tablet 325 mg) 2 tablets, q4h as needed, mild pain. Allergies: Penicillins. (BREAKOUT x1).SOCIAL HISTORYNo drug use.ADDITIONAL NOTESThe nursing notes have been reviewed.PHYSICAL EXAMVital Signs: 03/03/2021 00:26 BP: 133/74. MAP: 93. HR: 76. RR: 17. O2 saturation: 96%.03/02/2021 23:55 BP: 110/73. MAP: 85. HR: 74. RR: 19. O2 saturation: 96%.03/02/2021 23:30 BP: 99/64. MAP: 75. HR: 92. RR: 17. O2 saturation: 96%.03/02/2021 22:51 BP: 133/99. MAP: 110. HR: 88. RR : 20. O2 saturation: 98%. Temp: 97.1 F. Pain levelnow: 0/10. Have been reviewed and appear to be correct. Hypotensive. Mean arterial pressure-normal. Heart rate normal. Respiratory rate normal. Temperature normal. Oxygen saturation normal.Appearance: Alert. Oriented X3. (weak feable).Eyes: Pupils equal, round and reactive to light. Eyes normal inspection.ENT: Nose normal. Dry mucous membranes present.Neck: Normal inspection.CVS: Tachycardia. Normal heart rhythm. Heart sounds normal.Respiratory: No respiratory distress. Painless inspiration.Abdomen: Soft and nontender. Bowel sounds normal.Back: Normal inspection. No CVA tenderness.Skin: Skin warm and dry. No rash.Extremities: Extremities exhibit normal ROM. No lower extremity edema.Neuro: Oriented X 3. No motor deficit. No sensory deficit.LABS, X-RAYS, AND EKGLaboratory Tests: CBC w Diff: (REINA: 03/02/2021 23:20) ( MsgRcvd 03/02/2021 23:37) Final results Test Result Flag Units (Reference) CBC W/AUTOMATED DIFF 3 Clinical Report - Physicians/Mid Levels [facility] Emergency Department [address] [place] [address] Phone #: ext- [phone] 03/02/2021 22:48 Patient: BEATRIZ CASTANEDA Sex: F : 1945 Age: 75y COMPLETE BLOOD COUNT WBC 10.5 10/uL (4.2 - 11.0) RBC 4.16 L 10/uL (4.20 - 5.40) HEMOGLOBIN 13.5 g/dL (12.0 - 16.0) HEMATOCRIT 37.8 % (37.0 - 47.0) MCV 90.9 fL (81.0 - 101) MCH 32.5 pg (27.0 - 34.0) MCHC 35.7 g/dL (31.0 - 36.0) RDW 11.9 % (11.5 - 14.5) PLATELETS 252 10/uL (150 - 450) MPV 8.5 fL (7.4 - 10.4) NEUT 93.6 H % (37.0 - 80.0) LYMPH 2.8 L % (25.0 - 40.0) MONO 0.4 L % (3.0 - 8.0) EOS 2.3 % (0.0 - 7.0) BASO 0.2 % (0.0 - 2.5) %IG 0.7 H % (0.0 - 0.0) %NRBC 0.0 % (0.0 - 0.0) #NEUT 9.86 H 10/uL (2.00 - 6.90) #LYMPH 0.29 L 10/uL (0.60 - 3.40) #MONO 0.04 10/uL (0.00 - 0.90) #EOS 0.24 10/uL (0.00 - 0.70) #BASO 0.02 10/uL (0.00 - 0.20) #IG 0.07 10/uL (0.00 - 0.10) #NRBC 0.00 10/uL (0.00 - 0.00) MANUAL DIFF NOT INDICATED RBC MORPH NOT INDICATEDCMP: (REINA: 03/02/2021 23:20) ( MsgRcvd 03/03/2021 00:00) Final results Test Result Flag Units (Reference) COMPREHENSIVE METABOLIC PANEL COMPREHENSIVE METABOLIC PANEL SODIUM 135 mEq/L (134 - 153) POTASSIUM 3.4 L mEq/L (3.6 - 5.0) CHLORIDE 100 mEq/L (98 - 107) CO2 22 MEQ/L (22 - 30) GLUCOSE 164 H MG/DL (70 - 99) BUN 33 H MG/DL (7 - 21) CREATININE 0.6 L MG/DL (0.7 - 1.5) BUN/CREAT 55 H (8 - 27) TOTAL PROTEIN 6.4 G/DL (6.3 - 8.2) ALBUMIN 3.8 L G/DL (3.9 - 5.0) GLOBULIN 2.6 GM/DL (2.4 - 3.2) A/G RATIO 1.5 (0.8 - 2.0) CALCIUM 9.1 MG/DL (8.4 - 10.2) TOTAL BILI 1.5 H MG/DL (0.2 - 1.3) ALKALINE PHOS 54 U/L (38 - 126) SGOT/AST 16 U/L (5 - 40) SGPT/ALT 22 U/L (7 - 56) ANION GAP 13.0 mmol/L (8.0 - 16.0) AGE 75 yrs NON- AA GFR >60 mL/min AFR AMER GFR >60 Male GFR Interprentation 20-49 yrs >60 mL/min Zspymi10-83 yrs >56 mL/min Normal 60-69 yrs >49 mL/min Normal 70-79yrs>42 mL/min Normal 80 and above > 35 mL/min Normal Female GFRInterpretation 20-39 yrs >60 mL/min Normal 40-49 yrs >58 mL/minNormal 50-59 yrs >51 mL/min Normal 60-69 yrs >45 mL/min Ygevke64-32 yrs >39 mL/min Normal 80 and above >32 mL/min Normal 4 Clinical Report - Physicians/Mid Levels [facility] Emergency Department [address] [place] [address] Phone #: ext- [phone] 03/02/2021 22:48 Patient: BEATRIZ CASTANEDA Sex: F : 1945 Age: 75y Lactic Acid: (REINA: 03/02/2021 23:20) ( [facility] 03/02/2021 23:43) Final results Test Result Flag Units (Reference) LACTIC ACID 2.9 H MMOL/L (0.2 - 2.2) Lipase: (REINA: 03/02/2021 23:20) ( MsgRcvd 03/03/2021 00:00) Final results Test Result Flag Units (Reference) LIPASE 110 H U/L (13 - 60).PROGRESS AND PROCEDURESCourse of Care: pt has B Cell lymphoma. she finished 5 days of treatment. she had significant nausea.on exam she was weak and dehydrated. EKG showed no stemi. labs showed dehydration. pt wasgiven nearly 2 L NS. she was given iv zofran. her lactic acid was initially elevated. repeat lactic acidnormalized. she felt markedly better. her and daughter were at bedside throughout the EDcourse. they agreed to take her home and f/u with pcp and to return if worse or any new symptoms. Patient/family counseled. Disposition: Condition: good and stable.CLINICAL IMPRESSION Vomiting with nausea. Mild dehydration HypokalemiaINSTRUCTIONS Drink plenty of fluids. (return if worse or any new symptoms. Please follow up with your oncologist.). Warnings: Further evaluation is necessary. GENERAL WARNINGS: Return or contact your physician immediately if your condition worsens or changes unexpectedly, if not improving as expected, or if other problems arise. Your Current Medications: Your current home medications have been reviewed. CONTINUE TAKING THE FOLLOWING MEDICATIONS: Allopurinol Oral : Tablet 300 mg, 1 tablet daily. A spirin Oral : Tablet Chewable 81 mg, 1 tablet daily. Ergocalciferol Oral : Capsule 1.25 MG ([id number] UT), 1 capsule monthly, 1st of the month. 5 Clinical Report - Physicians/Mid Levels [facility] Emergency Department [address] [place] [address] Phone #: [phone] 03/02/2021 22:48 Patient: BEATRIZ CASTANEDA Sex: F : 1945 Age: 75y HYDROmorphone HCl Oral : Tablet 2 mg, 1 tablet q4h, prn, moderate to severe pain. Lovaza Oral : Capsule 1 gm, 2 capsules 2x a day. Metoprolol Tartrate Oral : Tablet 25 mg, 1/2 tablet 2x a day. Prochlorperazine Maleate Oral : Tablet 10 mg, 1 tablet q6h, prn, nausea vomiting. Simvastatin Oral : 20 mg daily, at bedtime. Sulfamethoxazole-Trimethoprim Oral : Tablet 800- 160 mg, 1 tablet 2x a day, willie wedesday kae. Tylenol Oral : Tablet 325 mg, 2 tablets q4h, prn, mild pain. Zofran Oral : Tablet 4 mg, 1 tablet q6h, prn, nausea. HydroCHLOROthiazide Oral : Tablet 25 mg, 1 tablet daily, every AM. Follow-up: Follow up with your doctor tomorrow even if well. Call for an appointment. Reason for referral: evaluation. Summary of care provided to patient via paper. Understanding of the discharge instructions verbalized by patient.(Electronically signed by Mary Ellen Mcfarland MD 03/03/2021 03:25) Name Value Range Interpretation Code Description Data Che rce(s) Supporting Document(s) ID Date Data Source [id number] 03/03/2021 02:40:00 AM EDT [place] ([facility]) Name Value Range Interpretation Code Description Data Che rce(s) Supporting Document(s) Reported Physicians See Note Reported Physici ans [place] ([facility]) Note: Reported Physicians:Ordering: MARY ELLEN DONOVAN LAttending: PAULINA MCFARLANDAConsulting: VLADISLAV OSORIOCopjessee To: Phoebe MCFARLAND To: PAULINA MCFARLANDACodora To: Vladislav Osoroi ID Date Data Source [id number] 03/03/2021 02:40:00 AM EDT [place] ([facility]) Name Value Range Interpretation Code Description Data Che rce(s) Supporting Document(s) Bilirubin [Presence] in Peritoneal fluid NEG BILIRUBIN [place] ([facility]) Note: Responsible Observer: (MLE) Blood [Presence] in Urine by Visual NEG BLOOD [place] ([facility]) Note: Responsible Observer: (MLE) Clarity of Pleural fluid from Fetus clear CLARITY [place] ([facility]) Note: Responsible Observer: (MLE) Color of Exudate from wound yellow COLOR [place] ([facility]) Note: Responsible Observer: (MLE) Glucose [Mass/volume] in Urine collected for unspecified duration N ORM GLUCOSE [place] ([facility]) Note: Responsible Observer: (MLE) KETONE NEG KETONE [place] ([facility]) Note: Responsible Observer: (MLE) MICROSCOPIC Not Indicate MICROSCOPIC [place] ([facility]) Note: Responsible Observer: (MLE) pH of Vaginal fluid by Test strip 6 pH [place] ([facility]) Note: Responsible Observer: (MLE) Protein [Mass/volume] in Saliva (oral fluid) NEG PROTEIN [place] ([facility]) Note: Responsible Observer: (MLE) SPEC GRAVITY 1.020 SPEC GRAVITY [place] ([facility]) Note: Responsible Observer: (MLE) Urobilinogen [Presence] in Urine by Automated test strip NOR UROBILINOGEN [place] ([facility]) Note: Responsible Observer: (MLE) LEUK EST NEG LEUK EST [place] ([facility]) Note: Responsible Observer: (MLE) Nitrite [Presence] in Urine by Test strip NEG NITRITE [place] ([facility]) Note: Responsible Observer: (MLE) SOURCE R SOURCE [place] ([facility]) Note: Responsible Observer: (MLE) URINALYSIS See Note URINALYSIS [place] ([facility]) Note: URINALYSISResponsible Observer : (MLE) ID Date Data Source [id number] 03/03/2021 02:52:00 AM EDT [facility] Name Value Range Interpretation Code Description Data Che rce(s) Supporting Document(s) URINALYSIS [facility] URINALYSIS SOURCE R [facility] COLOR yellow NORMAL: Yellow [facility] CLARITY clear NORMAL: Clear [facility] Specific gravity of Urine by Test strip 1.020 1.001 - 1.030 [facility] pH 6 5 - 9 [facility] Glucose [Mass/volume] in Urine by Test strip NORM NORMAL: Negat [facility] Bilirubin.total [Presence] in Urine by Test strip NEG NORMAL: Negative [facility] Ketones [Presence] in Urine by Test strip NEG NORMAL: Negative [facility] Protein [Mass/volume] in Urine by Test strip NEG NORMAL: Negat ankit [facility] Nitrite [Presence] in Urine by Test strip NEG NORMAL: Negative [facility] BLOOD NEG NORMAL: Negative [facility] LEUK EST NEG NORMAL: Negative [facility] Urobilinogen [Mass/volume] in Urine by Test strip NOR less ro n 1.0 mg/dL [facility] MICROSCOPIC Not Indicate [facility] ID Date Data Source [id number] 03/03/2021 01:33:00 AM EDT [place] ([facility]) Name Value Range Interpretation Code Description Data Che rce(s) Supporting Document(s) Reported Physicians See Note Reported Physici ans [place] ([facility]) Note: Reported Physicians:Ordering: CAROLE VARNER MARY ELLEN LAttending: MAMI, NORMAConsulting: JUAN PABLO, JOCELYNCopy To: MAMI, NORMACopy To: MAMI, NORMACopy To: Juan Pablo, Vladislav ID Date Data Source [id number] 03/03/2021 01:33:00 AM EDT [place] ([facility]) Name Value Range Interpretation Code Description Data Che rce(s) Supporting Document(s) LACTIC ACID 2.1 MMOL/L LACTIC ACID [facility] Note: Responsible Observer: (MLE) ID Date Data Source [id number] 03/03/2021 01:42:00 AM EDT [facility] Name Value Range Interpretation Code Description Data Che rce(s) Supporting Document(s) Lactate [Moles/volume] in Serum or Plasma 2.1 MMOL/L 0.2 - 2.2 [facility] ID Date Data Source [id number] 03/02/2021 11:20:00 PM EDT [place] ([facility]) Name Value Range Interpretation Code Description Data Che rce(s) Supporting Document(s) Reported Physicians See Note Reported Physici [facility] ([facility]) Note: Reported Physicians:Ordering: COON EY MARY ELLEN LAttending: MAMI, NORMAConsulting: JUAN PABLO, JOCELYNCopy To: MAMI, NORMACopy To: MAMI, NORMACopy To: Juan Pablo, Vladislav ID Date Data Source [id number] 03/02/2021 11:20:00 PM EDT [place] ([facility]) Name Value Range Interpretation Code Description Data Che rce(s) Supporting Document(s) LACTIC ACID 2.9 MMOL/L Above high normal LACTIC ACID [facility] ([facility]) Note: Responsible Observer: (MLE) ID Date Data Source [id number] 03/02/2021 11:20:00 PM EDT [place] ([facility]) Name Value Range Interpretation Code Description Data Che rce(s) Supporting Document(s) Reported Physicians See Note Reported Physici ans [place] ([facility]) Note: Reported Physicians:Ordering: CODUNG VARNER, MARY ELLEN LAttending: MAMI, NORMAConsulting: JUAN PABLO, JOCELYNCopy To: MAMI, NORMACopy To: MAMI, NORMACopy To: Juan Pablo, Vladislav ID Date Data Source [id number] 03/02/2021 11:20:00 PM EDT [place] ([facility]) Name Value Range Interpretation Code Description Data Che rce(s) Supporting Document(s) LIPASE 110 U/L Above high normal LIPASE [facility] ([facility]) Note: Responsible Observer: (MLE) ID Date Data Source [id number] 03/02/2021 11:20:00 PM EDT [place] ([facility]) Name Value Range Interpretation Code Description Data Che rce(s) Supporting Document(s) Reported Physicians See Note Reported Physic ans [place] ([facility]) Note: Reported Physicians:Ordering: COON EY, MARY ELLEN LAttending: MAMI, NORMAConsulting: JUAN PABLO, JOCELYNCopy To: MAMI, NORMACopy To: MAMI, NORMACopy To: Juan Pablo, Vladislav ID Date Data Source [id number] 03/02/2021 11:20:00 PM EDT [place] ([facility]) Name Value Range Interpretation Code Description Data Che rce(s) Supporting Document(s) A/G RATIO 1.5 A/G RATIO [place] ([facility]) Note: Responsible Observer: (MLE) AFR AMER GFR >60 AFR AMER GFR [place] ([facility]) Note: Male GFR Interprentation 20- 49 yrs >60 mL/min Normal 50-59 yrs >56 mL/min Normal 60-69 yrs >49 mL/min Normal 70- 79yrs >42 mL/min Normal 80 and above >35 mL/min Normal Female GFR Interpretation 20-39 yrs >60 mL/min Normal 40-49 yrs >58 mL/min Normal 50-59 yrs >51 mL/min Normal 60-69 yrs >45 mL/min Normal 70-79 yrs >39 mL/min Normal 80 and above >32 mL/min NormalResponsible Observer: (MLE) Egg donor age 75 yrs AGE [place] ([facility]) Note: Responsible Observer: (MLE) Albumin [Mass/volume] in Blood by Bromocresol purple ( BCP) dye binding method 3.8 G/DL Below low normal ALBUMIN [place] ([facility]) Note: Responsible Observer: (MLE) ALKALINE PHOS 54 U/L ALKALINE PHOS [place] ([facility]) Note: Responsible Observer: (MLE) Anion gap in Body fluid 13.0 mmol/L ANION GAP [place] ([facility]) Note: Responsible Observer: (MLE) BUN 33 MG/DL Above high normal BUN [place] ([facility]) Note: Responsible Observer: (MLE) BUN/CREAT 55 Above high normal BUN/CREAT [facility] ([facility]) Note: Responsible Observer: (MLE) Calcium [Moles/volume] in Urine collected for unspecified durati on 9.1 MG/DL CALCIUM [place] ([facility]) Note: Responsible Observer: (MLE) Chloride [Moles/volume] in Serum, Plasma or Blood 100 mEq/L CHLORIDE [place] ([facility]) Note: Responsible Observer: (MLE) CO2 22 MEQ/L CO2 [place] ([facility]) Note: Responsible Observer: (MLE) COMPREHENSIVE METABOLIC PANEL See Note COMPRE HENSIVE METABOLIC PANEL [place] ([facility]) Note: COMPREHENSIVE METABOLIC PANELR esponsible Observer: (MLE) Creatinine [Moles/volume] in Vitreous fluid 0.6 MG/DL Below low normal CREATININE [place] ([facility]) Note: Responsible Observer: (MLE) Globulin [Mass/time] in 24 hour Urine 2.6 GM/DL GLOBULIN [place] ([facility]) Note: Responsible Observer: (MLE) Glucose [Mass/volume] in Urine collected for unspecified duratio n 164 MG/DL Above high normal GLUCOSE [place] ([facility]) Note: Responsible Observer: (MLE) NON-AA GFR >60 mL/min NON-AA GFR [place] ([facility]) Note: Responsible Observer: (MLE) Potassium [Mass/volume] in Blood 3.4 mEq/L Below low norm al POTASSIUM [place] ([facility]) Note: Responsible Observer: (MLE) SGOT/AST 16 U/L SGOT/AST [place] ([facility]) Note: Responsible Observer: (MLE) SGPT/ALT 22 U/L SGPT/ALT [place] ([facility]) Note: Responsible Observer: (MLE) Sodium [Moles/volume] in Serum, Plasma or Blood 135 mEq/L SODIUM [place] ([facility]) Note: Responsible Observer: (MLE) TOTAL BILI 1.5 MG/DL Above high normal TOTAL BILI [facility] ([facility]) Note: Responsible Observer: (MLE) TOTAL PROTEIN 6.4 G/DL TOTAL PROTEIN [place] ([facility]) Note: Responsible Observer: (MLE) ID Date Data Source [id number] 03/02/2021 11:20:00 PM EDT [place] ([facility]) Name Value Range Interpretation Code Description Data Che rce(s) Supporting Document(s) Reported Physicians See Note Reported Physici ans [place] ([facility]) Note: Reported Physicians:Ordering: MARY ELLEN DONOVAN LAttending: PAULINA MCFARLANDAConsulting: VLADISLAV OSORIOCopjessee To: PAULINA MCFARLANDACodora To: PAULINA MCFARLANDACopy To: Vladislav Osorio ID Date Data Source [id number] 03/02/2021 11:20:00 PM EDT [place] ([facility]) Name Value Range Interpretation Code Description Data Che rce(s) Supporting Document(s) #BASO 0.02 10\\^3/uL #BASO [place] ([facility]) Note: Responsible Observer: (MLE) #EOS 0.24 10\\^3/uL #EOS [place] ([facility]) Note: Responsible Observer: (MLE) #IG 0.07 10\\^3/uL #IG [place] ([facility]) Note: Responsible Observer: (MLE) #LYMPH 0.29 10\\^3/uL Below low normal #LYMPH [address] ([facility]) Note: Responsible Observer: (MLE) #MONO 0.04 10\\^3/uL #MONO [place] ([facility]) Note: Responsible Observer: (MLE) #NEUT 9.86 10\\^3/uL Above high normal #NEUT [address] ([facility]) Note: Responsible Observer: (MLE) #NRBC 0.00 10\\^3/uL #NRBC [place] ([facility]) Note: Responsible Observer: (MLE) %IG 0.7 % Above high normal %IG [place] ([facility]) Note: Responsible Observer: (MLE) %NRBC 0.0 % %NRBC [place] ([facility]) Note: Responsible Observer: (MLE) BASO 0.2 % BASO [place] ([facility]) Note: Responsible Observer: (MLE) CBC W/AUTOMATED DIFF See Note CBC W/AUTOMATED DIFF [place] ([facility]) Note: COMPLETE BLOOD COUNTResponsibl e Observer: (MLE) EOS 2.3 % EOS [place] ([facility]) Note: Responsible Observer: (MLE) Hematocrit [Pure volume fraction] of Blood by Automated count 37.8 % HEMATOCRIT [place] ([facility]) Note: Responsible Observer: (MLE) Hemoglobin [Mass/volume] in Mixed venous blood by Oximetry 13.5 g/d L HEMOGLOBIN [place] ([facility]) Note: Responsible Observer: (MLE) LYMPH 2.8 % Below low normal LYMPH [place] ([facility]) Note: Responsible Observer: (MLE) MANUAL DIFF NOT INDICATED MANUAL DIFF [place] ([facility]) Note: Responsible Observer: (MLE) MCH 32.5 pg MCH [place] ([facility]) Note: Responsible Observer: (MLE) MCHC 35.7 g/dL MCHC [place] ([facility]) Note: Responsible Observer: (MLE) MCV 90.9 fL MCV [place] ([facility]) Note: Responsible Observer: (MLE) MONO 0.4 % Below low normal MONO [place] ([facility]) Note: Responsible Observer: (MLE) MPV 8.5 fL MPV [place] ([facility]) Note: Responsible Observer: (MLE) NEUT 93.6 % Above high normal NEUT [place] ([facility]) Note: Responsible Observer: (MLE) Platelets [#/area] in Blood by Microscopy high power field 252 10\\^ 3/uL PLATELETS [place] ([facility]) Note: Responsible Observer: (MLE) RBC 4.16 10\\^6/uL Below low normal RBC [place] ([facility]) Note: Responsible Observer: (MLE) RBC MORPH NOT INDICATED RBC MORPH [place] ([facility]) Note: Responsible Observer: (MLE) RDW 11.9 % RDW [place] ([facility]) Note: Responsible Observer: (MLE) WBC 10.5 10\\^3/uL WBC [place] ([facility]) Note: Responsible Observer: (MLE) ID Date Data Source [id number] 03/03/2021 12:00:00 AM T [facility] Value Range Interpretation Code Description Data Che rce(s) Supporting Document(s) Lipase [Enzymatic activity/volume] in Serum or Plasma 110 U/L 13 - 60 H [facility] ID Date Data Source [id number] 03/03/2021 12:00:00 AM T [facility] Name Value Range Interpretation Code Description Data Che rce(s) Supporting Document(s) COMPREHENSIVE METABOLIC PANEL [facility] COMPREHENSIVE METABOLIC PANEL Sodium [Moles/volume] in Serum or Plasma 135 mEq/L 134 - 153 [facility] Potassium [Moles/volume] in Serum or Plasma 3.4 mEq/L 3.6 - 5.0 L [facility] Chloride [Moles/volume] in Serum or Plasma 100 mEq/L 98 - 107 [facility] Carbon dioxide, total [Moles/volume] in Serum or Plasma 22 MEQ/L 22 - 30 [facility] Glucose [Mass/volume] in Serum or Plasma 164 MG/DL 70 - 99 H [facility] BUN 33 MG/DL 7 - 21 H [facility] al Creatinine [Mass/volume] in Serum or Plasma 0.6 MG/DL 0.7 - 1.5 L [facility] BUN/CREAT 55 8 - 27 H [facility] Protein [Mass/volume] in Serum or Plasma 6.4 G/DL 6.3 - 8.2 [facility] Albumin [Mass/volume] in Serum or Plasma 3.8 G/DL 3.9 - 5.0 L [facility] Globulin [Mass/volume] in Serum by calculation 2.6 GM/DL 2.4 - 3.2 [facility] A/G RATIO 1.5 0.8 - 2.0 [facility] Calcium [Mass/volume] in Serum or Plasma 9.1 MG/DL 8.4 - 10.2 [facility] Bilirubin.total [Mass/volume] in Serum or Plasma 1.5 MG/DL 0.2 - 1.3 H [facility] Alkaline phosphatase [Enzymatic activity/volume] in Serum or Plasma 54 U/L 38 - 126 [facility] Aspartate aminotransferase [Enzymatic activity/volume] in Serum or Plasma 16 U/L 5 - 40 [facility] Alanine aminotransferase [Enzymatic activity/volume] in Seru m or Plasma 22 U/L 7 - 56 [facility] Anion gap 3 in Serum or Plasma 13.0 mmol/L 8.0 - 16.0 [facility] AGE 75 yrs [facility] al NON-AA GFR >60 mL/min [facility] ital AFR AMER GFR >60 [facility] Male GFR In terprentation 20-49 yrs >60 mL/min Normal 50-59 yrs >56 mL/min Normal 60-69 yrs >49 mL/min Normal 70-79yrs >42 mL/min Normal 80 and above >35 mL/min Normal Female GFR Interpretation 20-39 yrs >60 mL/min Normal 40-49 yrs >58 mL/min Normal 50-59 yrs >51 mL/min Normal 60-69 yrs >45 mL/min Normal 70-79 yrs >39 mL/min Normal 80 and above >32 mL/min Normal ID Date Data Source [id number] 03/02/2021 11:43:00 PM EDT [facility] Name Value Range Interpretation Code Description Data Che rce(s) Supporting Document(s) Lactate [Moles/volume] in Serum or Plasma 2.9 MMOL/L 0.2 - 2.2 H [facility] ID Date Data Source [id number] 03/02/2021 11:36:00 PM EDT [facility] Name Value Range Interpretation Code Description Data Che rce(s) Supporting Document(s) CBC W/AUTOMATED DIFF [facility] COMPLETE BLOOD COUNT Leukocytes [#/volume] in Blood by Automated count 10.5 10^3/uL 4.2 - 11.0 [facility] Erythrocytes [#/volume] in Blood by Automated count 4.16 10^6/uL 4. 20 - 5.40 L [facility] Hemoglobin [Mass/volume] in Blood 13.5 g/dL 12.0 - 16.0 [facility] Hematocrit [Volume Fraction] of Blood by Automated count 37.8 % 3 7.0 - 47.0 [facility] Erythrocyte mean corpuscular volume [Entitic volume] by Auto mated count 90.9 fL 81.0 - 101 [facility] Erythrocyte mean corpuscular hemoglobin [Entitic mass] by Automated count 32.5 pg 27.0 - 34.0 [facility] Erythrocyte mean corpuscular hemoglobin concentration [Mass/volume] by Automated count 35.7 g/dL 31.0 - 36.0 [facility] Erythrocyte distribution width [Ratio] by Automated count 11.9 % 11.5 - 14.5 [facility] Platelets [#/volume] in Blood by Automated count 252 10^3/uL 150 - 45 0 [facility] Platelet mean volume [Entitic volume] in Blood by Automated count 8.5 fL 7.4 - 10.4 [facility] Neutrophils/100 leukocytes in Blood by Automated count 93.6 % 37. 0 - 80.0 H [facility] Lymphocytes/100 leukocytes in Blood by Manual count 2.8 % 25.0 - 40.0 L [facility] Monocytes/100 leukocytes in Blood by Automated count 0.4 % 3.0 - 8.0 L [facility] Eosinophils/100 leukocytes in Blood by Automated count 2.3 % 0.0 - 7.0 [facility] Basophils/100 leukocytes in Blood by Automated count 0.2 % 0.0 - 2.5 [facility] %IG 0.7 % 0.0 - 0.0 H [facility] al %NRBC 0.0 % 0.0 - 0.0 [facility] Neutrophils [#/volume] in Blood by Automated count 9.86 10^3/uL 2.00 - 6.90 H [facility] Lymphocytes [#/volume] in Blood by Automated count 0.29 10^3/uL 0.60 - 3.40 L [facility] Monocytes [#/volume] in Blood by Automated count 0.04 10^3/uL 0.00 - 0.90 [facility] Eosinophils [#/volume] in Blood by Automated count 0.24 10^3/uL 0.00 - 0.70 [facility] Basophils [#/volume] in Blood by Automated count 0.02 10^3/uL 0.00 - 0.20 [facility] #IG 0.07 10^3/uL 0.00 - 0.10 [facility] ospital #NRBC 0.00 10^3/uL 0.00 - 0.00 [facility] MANUAL DIFF NOT INDICATED [facility] RBC MORPH NOT INDICATED [facility] spital ID Date Data Source [id number] 03/02/2021 03:11:58 PM EDT [facility] NT INFORMATIONPatient MRN Name Date of Age Gend*PT [id number] Beatriz Castaneda 1945 75 years F IPPT Location Admission Date/Time Visit ID Attending [id number] 02/23/212054 --- Kandice Flores MD([id number]) EPI ID CSN Admitting Provider [id number] Tracee Conway MD([id number]) Attestation signed by Haja Smith MD at 03/02/2021 3:11 PMProcedure performed under my supervision, I agree with above report.Haja Smith MD 03/02/2021 3:11 PMDepartment of Interventional Radiology Interventional Radiology Post Venous Line Insertion NotePhysician: Delroy Rosario PAProcedure: Port insertionPRE-PROCEDURE DIAGNOSIS:Diffuse large B-cell lymphomaPOST PROCEDURE DIAGNOSIS: Diffuse large B-cell lymphomaCatheter: BardSize: 6 FrLumens: 1Length: 25 cmSide: leftSite: internal jugular veinEstimated Blood Loss: MinimalSpecimens: NoneGrafts/Implants: NoneComplications: NoneLocal anesthetic: Lidocaine 1% with epinephrine, volume 15 ccSutured: NoTip position: X-ray shows tip in SVC.Dictated note to follow.Delroy Rosario, PADepartment of Interventional Radiology Name Value Range Interpretation Code Description Data Che rce(s) Supporting Document(s) ID Date Data Source [id number] 03/02/2021 09:06:32 AM EDT [address] [id number] Name: BEATRIZ Quinn WORKMANDOB: 1945Sex: FOrdering Provider: ABRIL Parker Prov: ABRIL WYATTBarbaradavid Provider: Procedure Performed: CT FACIAL BONES W CONTRASTExam Date: 03/02/2021 08:38MRN: [id number] Number: [id number] Class: InpatientAccount #: [id number] for 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 Multiplanar reconstructions were created and reviewed.Comparison: NoneFindings: There is abnormal thickening of the nasopharyngeal soft tissues, right greater than left as well as multiple enlarged right cervical lymph nodes which are not fully included in the [id number]. The largest visualized node measures up to 1.3 cm in short axis. 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 No acute fracture or dislocation is seen. There is no evidence of osseous erosion or periosteal reaction. There is mild mucosal thickening in the right maxillary sinus and right posterior ethmoid air cells. Small mucous retention cysts are seen in the right sphenoid sinus. There is a small nonspecific right mastoid effusion and a small amount of fluid in the right middle ear cavity.IMPRESSION: 1. 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 No evidence of osseous erosion to suggest tumor invasion. No acute fracture.3. Mild mucosal thickening in the right maxillary sinus and right posterior ethmoid air cells.4. Small nonspecific right mastoid effusion and a small amount of fluid in the right middle ear cavity. Please correlate for evidence of otomastoiditis.Report electronically signed by: JUAN PABLO LINDSAY On 03/02/2021 9:06 AMWorkstation ID: [id number] Name Value Range Interpretation Code Description Data Che rce(s) Supporting Document(s) ID Date Data Source [id number] 03/02/2021 08:15:27 AM EDT [facility] Name Value Range Interpretation Code Description Data Che rce(s) Supporting Document(s) WBC 5.6 10*3/uL (4.1-11.0) [facility] [place] RBC 3.92 10*6/uL (4.00-5.40) L [facility] HGB 12.9 g/dL (12.0-16.0) [facility] HCT 36.0 % (36.0-47.0) [facility] MCV 91.9 fL (80.0-95.0) [facility] MCH 33.0 pg (27.0-32.0) H [facility] MCHC 35.9 g/dL (32.0-36.0) [facility] RDW 12.4 % (10.5-14.5) [facility] PLT 267 10*3/uL (150-450) [facility] MPV 6.6 fL (7.1-10.7) L [facility] NEUT % 89.5 % (35.0-75.0) H [facility] LYMPH % 8.5 % (16.0-52.0) L [facility] MONO % 1.7 % (0.0-8.0) [facility] EOS % 0.1 % (0.0-5.0) [facility] BASO % 0.2 % (0.0-4.0) [facility] NEUT # 5.1 10*3/uL (1.8-7.7) [facility] LYMPH # 0.5 10*3/uL (1.2-4.8) L [facility] MONO # 0.1 10*3/uL (0.0-0.8) [facility] Eosinophils [#/volume] in Blood by Automated count 0.0 10*3/uL (0.0-0 .5) [facility] BASO # 0.0 10*3/uL (0.0-0.2) [facility] ID Date Data Source [id number] 03/02/2021 08:14:57 AM EDT [facility] Name Value Range Interpretation Code Description Data Che rce(s) Supporting Document(s) PHOSPHORUS 3.0 mg/dL (2.5-4.5) [facility] ID Date Data Source [id number] 03/02/2021 08:14:57 AM EDT [facility] Name Value Range Interpretation Code Description Data Che rce(s) Supporting Document(s) URIC ACID 2.7 mg/dL (2.6-6.0) [facility] ID Date Data Source [id number] 03/02/2021 08:14:57 AM EDT [facility] Name Value Range Interpretation Code Description Data Che rce(s) Supporting Document(s) MAGNESIUM 2.6 mg/dL (1.7-2.4) H [facility] ID Date Data Source [id number] 03/02/2021 08:14:57 AM EDT [facility] Name Value Range Interpretation Code Description Data Che rce(s) Supporting Document(s) SODIUM 139 mmol/L (136-145) [facility] POTASSIUM 3.8 mmol/L (3.6-5.2) [facility] CHLORIDE 106 mmol/L (100-108) [facility] CO2 27 mmol/L (22-31) [facility] ANION GAP 6 mmol/L (7-16) L [facility] UREA NITROGEN 27 mg/dL (7-24) H [facility] CREATININE 0.58 mg/dL (0.60-1.00) L [facility] BUN/CREAT RATIO 46.6 RATIO (10.0-20.0) H [facility] GLUCOSE 92 mg/dL (70-99) [facility] CALCIUM 8.7 mg/dL (8.4-10.2) [facility] TOTAL PROTEIN 6.5 g/dL (6.4-8.2) [facility] ALBUMIN 3.0 g/dL (3.2-4.5) L [facility] GLOBULIN 3.5 g/dL (2.7-4.3) [facility] ALB/GLOB RATIO 0.9 RATIO [facility] ALKALINE PHOSPHATASE 54 U/L (45-117) [facility] BILIRUBIN,TOTAL 1.0 mg/dL (0.0-1.0) [facility] PLEASE NOTE:Total bilirubin results may be falselyelevated in patients taking Eltrombopag. AST (SGOT) 15 U/L (11-39) [facility] [place] ALT (SGPT) 26 U/L (12-78) [facility] GFR >60 ml/min/1.73m2 (>59) [facility] GFR ( AMER) >60 ml/min/1.73m2 (>59) [facility] GFR INTERPRETATION [facility] --NORMAL KIDNEY FUNCTION OR MILD DISEASE - GFR >OR= 60CHRONIC KIDNEY DISEASE - GFR 15 - 59RENAL FAILURE - GFR <15 Est. GFR calculation based on the MDRDstudy equation, which assumes a steadystate for creatinine. Est. GFR should notbe used for medication dosing. ID Date Data Source [id number] 03/02/2021 08:14:57 AM EDT [facility] [place] Name Value Range Interpretation Code Description Data Che rce(s) Supporting Document(s) LDH 197 U/L (84-246) [facility] [place] ID Date Data Source [id number] 03/01/2021 03:30:30 PM EDT [facility] NT INFORMATIONPatient MRN Name Date of Age Gend*PT [id number] Beatriz Castaneda 1945 75 years F IPPT Location Admission Date/Time Visit ID Attending [id number] 02/23/212054 --- Kandice Flores MD([id number]) EPI ID CSN Admitting Provider [id number] Tracee Conway MD([id number]) Attestation signed by Haja Smith MD at 03/01/2021 3:30 PMProcedure performed under my supervision, I agree with above report.Haja Smith MD 03/01/2021 3:30 PMDepartment of Interventional Radiology Brief Operative/Invasive Procedure NoteBeatriz Quinn WorkmanDATE OF : 1945MRN # [id number] DATE: 03/01/2021ROVIDER:LUCAS Chaudhary 03/01/2021 1:51 PMASSISTANCE(S): NonePROCEDURE:Fluoroscopy guided lumbar puncture with chemo injectionPRE- PROCEDURE DIAGNOSIS:LymphomaPOST PROCEDURE DIAGNOSIS:LymphomaANESTHESIA TYPE:local. 1% lidocaine (5cc)DRAINS:noneSPECIMENS:2cc os CSF per vial in 4 vials for 8cc totalESTIMATED BLOOD LOSS: NoneGRAFTS OR IMPLANTS:noneFINDINGS: Consistent with operative diagnosisCOMPLICATIONS: noneSee dictated Marco A Wyatt, [facility] Name Value Range Interpretation Code Description Data Che rce(s) Supporting Document(s) ID Date Data Source [id number] 03/01/2021 02:13:30 PM EDT [address] [address]Marpvhu Name: BEATRIZ Quinn WORKMANDOB: 1945Sex: FOrdering Provider: ABRIL Parker Prov: ABRIL Sen Provider: Procedure Performed: IR LUMBAR PUNCTURE WITH CHEMO INJECTIONExam Date: 03/01/2021 13:50MRN: [id number] Number: [id number] Class: InpatientAccount #: [id number] for Exam: intrathecal methotrexate and CSF analysis; please send CSF for flow cytometry and cytology (requisitions are in chart). Diffuse large B-cell lymphoma.Technique: Fluoroscopy spot films obtainedComparison: NoneFindings: ED HARDIN: After the risks and benefits of the procedure were explained to the patient, informed consent was obtained. Risks include but are not limited to bleeding, infection, nerve injury, and spinal headache. 1% LIDOCAINE was used for local anesthesia. The patient was sterilely prepped and draped. Using fluoroscopic guidance, a 22-gauge spinal needle was advanced into the CSF space at the L4-L5 level. CSF was seen exiting the needle hub. A total of 8 mL of clear CSF was collected into 4 separate vials. After the CSF was collected, 12 mg of METHOTREXATE was injected intrathecally. The needle was then removed and a Band-Aid was applied.This exam was performed by LUCAS Cisneros under the direct supervision of Dr Jonesomplications: None.IMPRESSION: Status post successful lumbar puncture and intrathecal injection of 12 mg of METHOTREXATE.Report electronically approved by: LUCAS Cisneros On 03/01/2021 2:08 PMThe procedure described above was performed by Jose BADILLO under my supervision and I agree with this reportReport electronically signed by: HAJA SMITH On 03/01/2021 2:13 PMWorkstation ID: [id number] Name Value Range Interpretation Code Description Data Che rce(s) Supporting Document(s) ID Date Data Source [id number] 03/03/2021 02:03:42 PM EDT Lab [facility] SPECIMEN DESCRIPTION CEREBROSPINA L FLUIDSPECIAL REQUESTS NONEGRAM STAIN NO WHITE BLOOD CELLS NO EPITHELIAL CELLS NO BACTERIA NOTE: THIS IS A PRELIMINARY GRAM STAIN RESULT R EPORTED BY STAFF AT THE HOSPITAL LAB. A FINAL RE PORT WILL BE ISSUED BY THE MICROBIOLOGY STAFF AT THE CORE LAB. THE ORDERING PHYSICIAN WILL BE NOT IFIED OF ANY CHANGES. NOTE: THE GRAM STAIN HAS BEEN REVIEWED/REPEATE D BY MICRO STAFF AND THERE ARE NO CHANGES TO THE PRELIMINARY RESULT.CULTURE RESULTS NO GROWTHREPORT STATUS FINAL 03/03/2021 Name Value Range Interpretation Code Description Data Che rce(s) Supporting Document(s) ID Date Data Source [id number] 03/03/2021 08:51:49 AM EDT [facility] Name Value Range Interpretation Code Description Data Che rce(s) Supporting Document(s) SOURCE (RESOE) [facility] RESULT [facility] PER[facility] [address] [place] [address] ID Date Data Source [id number] 03/01/2021 03:35:51 PM EDT [facility] Name Value Range Interpretation Code Description Data Che rce(s) Supporting Document(s) TUBE NUMBER [facility] COLOR (COLR) [facility] APPEAR (CLEAR) [facility] SUPERNATANT COLOR PENDING (COLR) [facility] RBC 133 /uL (0) H [facility] SUPERNATANT APPEAR PENDING (CLEAR) [facility] TOTAL NUCLEATED CNT 1 /uL (0-5) [facility] NEUT % 54 % (0-6) H [facility] LYMPH % 40 % (40-80) [facility] MONO % 6 % (15-45) L [facility] TOTAL CELLS COUNTED 50 [facility] ID Date Data Source [id number] 03/01/2021 03:03:21 PM EDT [facility] Name Value Range Interpretation Code Description Data Che rce(s) Supporting Document(s) CSF TOTAL PROTEIN 45 mg/dL (15-45) [facility] ID Date Data Source [id number] 03/01/2021 03:03:20 PM EDT [facility] Name Value Range Interpretation Code Description Data Che rce(s) Supporting Document(s) CSF GLUCOSE 65 mg/dL (40-75) [facility] ID Date Data Source [id number] 03/01/2021 09:36:29 AM EDT [facility] Name Value Range Interpretation Code Description Data Che rce(s) Supporting Document(s) URIC ACID 2.4 mg/dL (2.6-6.0) L [facility] ID Date Data Source [id number] 03/01/2021 09:36:29 AM EDT [facility] Name Value Range Interpretation Code Description Data Che rce(s) Supporting Document(s) PHOSPHORUS 2.8 mg/dL (2.5-4.5) [facility] ID Date Data Source [id number] 03/01/2021 09:36:29 AM EDT [facility] Name Value Range Interpretation Code Description Data Che rce(s) Supporting Document(s) MAGNESIUM 2.8 mg/dL (1.7-2.4) H [facility] ID Date Data Source [id number] 03/01/2021 09:36:29 AM EDT [facility] Name Value Range Interpretation Code Description Data Che rce(s) Supporting Document(s) LDH 220 U/L (84-246) [facility] ID Date Data Source [id number] 03/01/2021 09:36:29 AM EDT [facility] Name Value Range Interpretation Code Description Data Che rce(s) Supporting Document(s) SODIUM 139 mmol/L (136-145) [facility] POTASSIUM 3.9 mmol/L (3.6-5.2) [facility] CHLORIDE 104 mmol/L (100-108) [facility] CO2 28 mmol/L (22-31) [facility] ANION GAP 7 mmol/L (7-16) [facility] UREA NITROGEN 20 mg/dL (7-24) [facility] CREATININE 0.49 mg/dL (0.60-1.00) L [facility] BUN/CREAT RATIO 40.8 RATIO (10.0-20.0) H [facility] GLUCOSE 101 mg/dL (70-99) H [facility] CALCIUM 8.7 mg/dL (8.4-10.2) [facility] TOTAL PROTEIN 6.9 g/dL (6.4-8.2) [facility] ALBUMIN 3.3 g/dL (3.2-4.5) [facility] GLOBULIN 3.6 g/dL (2.7-4.3) [facility] ALB/GLOB RATIO 0.9 RATIO [facility] ALKALINE PHOSPHATASE 58 U/L (45-117) [facility] BILIRUBIN,TOTAL 1.0 mg/dL (0.0-1.0) [facility] PLEASE NOTE:Total bilirubin results may be falselyelevated in patients taking Eltrombopag. AST (SGOT) 13 U/L (11-39) [facility] ALT (SGPT) 29 U/L (12-78) [facility] GFR >60 ml/min/1.73m2 (>59) [facility] GFR ( AMER) >60 ml/min/1.73m2 (>59) [facility] GFR INTERPRETATION [facility] --NORMAL KIDNEY FUNCTION OR MILD DISEASE - GFR >OR= 60CHRONIC KIDNEY DISEASE - GFR 15 - 59RENAL FAILURE - GFR <15 Est. GFR calculation based on the MDRDstudy equation, which assumes a steadystate for creatinine. Est. GFR should notbe used for medication dosing. ID Date Data Source [id number] 03/01/2021 09:24:19 AM EDT [facility] Name Value Range Interpretation Code Description Data Che rce(s) Supporting Document(s) WBC 5.0 10*3/uL (4.1-11.0) [facility] [place] RBC 4.02 10*6/uL (4.00-5.40) [facility] HGB 13.4 g/dL (12.0-16.0) [facility] HCT 36.9 % (36.0-47.0) [facility] MCV 91.8 fL (80.0-95.0) [facility] MCH 33.2 pg (27.0-32.0) H [facility] MCHC 36.2 g/dL (32.0-36.0) H [facility] RDW 12.5 % (10.5-14.5) [facility] PLT 301 10*3/uL (150-450) [facility] MPV 6.7 fL (7.1-10.7) L [facility] NEUT % 85.8 % (35.0-75.0) H [facility] LYMPH % 8.4 % (16.0-52.0) L [facility] MONO % 5.2 % (0.0-8.0) [facility] EOS % 0.0 % (0.0-5.0) [facility] BASO % 0.6 % (0.0-4.0) [facility] NEUT # 4.3 10*3/uL (1.8-7.7) [facility] LYMPH # 0.4 10*3/uL (1.2-4.8) L [facility] MONO # 0.3 10*3/uL (0.0-0.8) [facility] Eosinophils [#/volume] in Blood by Automated count 0.0 10*3/uL (0.0-0 .5) [facility] BASO # 0.0 10*3/uL (0.0-0.2) [facility] ID Date Data Source [id number] 03/05/2021 04:10:38 PM EDT [facility] [address] [address]Xhi# MISCELLANEOUS CYTOLOGY REPORTAccession Number: [id number] of Specimen(s): A: Cerebrospinal Fluid Tube #4Clinical Diagnosis and History: Gross DescriptionCerebrospinal Fluid Tube #4: 2 cc clear colorless fluid with 2 slides. Final DiagnosisSpecimen AdequacySatisfactoryFinal DiagnosisNEGATIVE FOR MALIGNANCY Rare neutrophils and lymphocytes among red blood cells.Processed and screened at Laboratory [facility],Cytology, [address] [place] [address], [facility].As applicable, positive and negative controls for all immunohistochemicaland/or special stains were reviewed and considered appropriate. Reported: 03/05/2021Electronically Signed Out By Alpesh Curry MDCo[facility] PatholoCytotechnologist: Shani Murray CT(ASCP)[facility]jjfICD code: C11.9CPT code: A: [id number] Name Value Range Interpretation Code Description Data Che rce(s) Supporting Document(s) ID Date Data Source [id number] 02/28/2021 08:06:48 AM EDT [facility] Name Value Range Interpretation Code Description Data Che rce(s) Supporting Document(s) MAGNESIUM 2.5 mg/dL (1.7-2.4) H [facility] ID Date Data Source [id number] 02/28/2021 08:06:48 AM EDT [facility] Name Value Range Interpretation Code Description Data Che rce(s) Supporting Document(s) URIC ACID 2.0 mg/dL (2.6-6.0) L [facility] ID Date Data Source [id number] 02/28/2021 08:06:48 AM EDT [facility] Name Value Range Interpretation Code Description Data Che rce(s) Supporting Document(s) SODIUM 139 mmol/L (136-145) [facility] POTASSIUM 3.8 mmol/L (3.6-5.2) [facility] CHLORIDE 106 mmol/L (100-108) [facility] CO2 27 mmol/L (22-31) [facility] ANION GAP 6 mmol/L (7-16) L [facility] UREA NITROGEN 16 mg/dL (7-24) [facility] CREATININE 0.43 mg/dL (0.60-1.00) L [facility] BUN/CREAT RATIO 37.2 RATIO (10.0-20.0) H [facility] GLUCOSE 99 mg/dL (70-99) [facility] CALCIUM 8.3 mg/dL (8.4-10.2) L [facility] TOTAL PROTEIN 6.3 g/dL (6.4-8.2) L [facility] ALBUMIN 2.9 g/dL (3.2-4.5) L [facility] GLOBULIN 3.4 g/dL (2.7-4.3) [facility] ALB/GLOB RATIO 0.9 RATIO [facility] ALKALINE PHOSPHATASE 57 U/L (45-117) [facility] BILIRUBIN,TOTAL 0.5 mg/dL (0.0-1.0) [facility] PLEASE NOTE:Total bilirubin results may be falselyelevated in patients taking Eltrombopag. AST (SGOT) 20 U/L (11-39) [facility] ALT (SGPT) 24 U/L (12-78) [facility] GFR >60 ml/min/1.73m2 (>59) [facility] GFR ( AMER) >60 ml/min/1.73m2 (>59) [facility] GFR INTERPRETATION [facility] --NORMAL KIDNEY FUNCTION OR MILD DISEASE - GFR >OR= 60CHRONIC KIDNEY DISEASE - GFR 15 - 59RENAL FAILURE - GFR <15 Est. GFR calculation based on the MDRDstudy equation, which assumes a steadystate for creatinine. Est. GFR should notbe used for medication dosing. ID Date Data Source [id number] 02/28/2021 08:06:48 AM EDT [facility] [place] Name Value Range Interpretation Code Description Data Che rce(s) Supporting Document(s) PHOSPHORUS 2.7 mg/dL (2.5-4.5) [facility] [place] ID Date Data Source [id number] 02/28/2021 08:06:48 AM EDT [facility] [place] Name Value Range Interpretation Code Description Data Che rce(s) Supporting Document(s) LDH 225 U/L (84-246) [facility] [place] ID Date Data Source [id number] 02/28/2021 07:41:33 AM EDT [facility] [place] Name Value Range Interpretation Code Description Data Che rce(s) Supporting Document(s) WBC 6.3 10*3/uL (4.1-11.0) [facility] [place] RBC 3.60 10*6/uL (4.00-5.40) L [facility] HGB 11.9 g/dL (12.0-16.0) L [facility] HCT 33.0 % (36.0-47.0) L [facility] MCV 91.8 fL (80.0-95.0) [facility] MCH 33.2 pg (27.0-32.0) H [facility] MCHC 36.1 g/dL (32.0-36.0) H [facility] RDW 12.5 % (10.5-14.5) [facility] PLT 250 10*3/uL (150-450) [facility] MPV 6.9 fL (7.1-10.7) L [facility] NEUT % 88.5 % (35.0-75.0) H [facility] LYMPH % 4.5 % (16.0-52.0) L [facility] MONO % 6.8 % (0.0-8.0) [facility] EOS % 0.0 % (0.0-5.0) [facility] BASO % 0.2 % (0.0-4.0) [facility] NEUT # 5.6 10*3/uL (1.8-7.7) [facility] LYMPH # 0.3 10*3/uL (1.2-4.8) L [facility] MONO # 0.4 10*3/uL (0.0-0.8) [facility] Eosinophils [#/volume] in Blood by Automated count 0.0 10*3/uL (0.0-0 .5) [facility] BASO # 0.0 10*3/uL (0.0-0.2) [facility] ID Date Data Source [id number] 02/27/2021 02:34:27 PM EDT [facility] Name Value Range Interpretation Code Description Data Che rce(s) Supporting Document(s) POC NOVA GLU 95 mg/dL (70-99) [facility] [place] [facility] STAFF ID Date Data Source [id number] 02/27/2021 12:32:53 PM EDT [facility] Name Value Range Interpretation Code Description Data Che rce(s) Supporting Document(s) WBC 9.1 10*3/uL (4.1-11.0) [facility] [place] RBC 3.61 10*6/uL (4.00-5.40) L [facility] HGB 11.8 g/dL (12.0-16.0) L [facility] HCT 33.5 % (36.0-47.0) L [facility] MCV 92.6 fL (80.0-95.0) [facility] MCH 32.7 pg (27.0-32.0) H [facility] MCHC 35.3 g/dL (32.0-36.0) [facility] RDW 12.7 % (10.5-14.5) [facility] PLT 280 10*3/uL (150-450) [facility] MPV 6.8 fL (7.1-10.7) L [facility] NEUT % 87.1 % (35.0-75.0) H [facility] LYMPH % 3.1 % (16.0-52.0) L [facility] MONO % 9.7 % (0.0-8.0) H [facility] EOS % 0.0 % (0.0-5.0) [facility] BASO % 0.1 % (0.0-4.0) [facility] NEUT # 7.9 10*3/uL (1.8-7.7) H [facility] LYMPH # 0.3 10*3/uL (1.2-4.8) L [facility] MONO # 0.9 10*3/uL (0.0-0.8) H [facility] Eosinophils [#/volume] in Blood by Automated count 0.0 10*3/uL (0.0-0 .5) [facility] BASO # 0.0 10*3/uL (0.0-0.2) [facility] ID Date Data Source [id number] 02/27/2021 06:06:10 AM EDT [facility] Name Value Range Interpretation Code Description Data Che rce(s) Supporting Document(s) MAGNESIUM 2.5 mg/dL (1.7-2.4) H [facility] ID Date Data Source [id number] 02/27/2021 06:06:10 AM EDT [facility] Name Value Range Interpretation Code Description Data Ceh rce(s) Supporting Document(s) PHOSPHORUS 2.3 mg/dL (2.5-4.5) L [facility] ID Date Data Source [id number] 02/27/2021 06:06:10 AM EDT [facility] Name Value Range Interpretation Code Description Data Che rce(s) Supporting Document(s) LDH 247 U/L (84-246) H [facility] ID Date Data Source [id number] 02/27/2021 06:06:10 AM EDT [facility] Name Value Range Interpretation Code Description Data Che rce(s) Supporting Document(s) URIC ACID 1.5 mg/dL (2.6-6.0) L [facility] ID Date Data Source [id number] 02/27/2021 06:06:10 AM EDT [facility] Name Value Range Interpretation Code Description Data Che rce(s) Supporting Document(s) SODIUM 142 mmol/L (136-145) [facility] POTASSIUM 3.7 mmol/L (3.6-5.2) [facility] CHLORIDE 110 mmol/L (100-108) H [facility] CO2 28 mmol/L (22-31) [facility] ANION GAP 4 mmol/L (7-16) L [facility] UREA NITROGEN 13 mg/dL (7-24) [facility] CREATININE 0.42 mg/dL (0.60-1.00) L [facility] BUN/CREAT RATIO 31.0 RATIO (10.0-20.0) H [facility] GLUCOSE 120 mg/dL (70-99) H [facility] CALCIUM 8.5 mg/dL (8.4-10.2) [facility] TOTAL PROTEIN 6.5 g/dL (6.4-8.2) [facility] ALBUMIN 3.1 g/dL (3.2-4.5) L [facility] GLOBULIN 3.4 g/dL (2.7-4.3) [facility] ALB/GLOB RATIO 0.9 RATIO [facility] ALKALINE PHOSPHATASE 62 U/L (45-117) [facility] BILIRUBIN,TOTAL 0.4 mg/dL (0.0-1.0) [facility] PLEASE NOTE:Total bilirubin results may be falselyelevated in patients taking Eltrombopag. AST (SGOT) 17 U/L (11-39) [facility] ALT (SGPT) 27 U/L (12-78) [facility] GFR >60 ml/min/1.73m2 (>59) [facility] GFR ( AMER) >60 ml/min/1.73m2 (>59) [facility] [place] GFR INTERPRETATION [facility] --NORMAL KIDNEY FUNCTION OR MILD DISEASE - GFR >OR= 60CHRONIC KIDNEY DISEASE - GFR 15 - 59RENAL FAILURE - GFR <15 Est. GFR calculation based on the MDRDstudy equation, which assumes a steadystate for creatinine. Est. GFR should notbe used for medication dosing. ID Date Data Source [id number] 02/26/2021 08:02:22 AM EDT [facility] [place] Name Value Range Interpretation Code Description Data Che rce(s) Supporting Document(s) PHOSPHORUS 2.5 mg/dL (2.5-4.5) [facility] [place] ID Date Data Source [id number] 02/26/2021 08:02:22 AM EDT [facility] [place] Name Value Range Interpretation Code Description Data Che rce(s) Supporting Document(s) URIC ACID 2.0 mg/dL (2.6-6.0) L [facility] [place] ID Date Data Source [id number] 02/26/2021 08:02:22 AM EDT [facility] [place] Name Value Range Interpretation Code Description Data Che rce(s) Supporting Document(s) LDH 281 U/L (84-246) H [facility] [place] ID Date Data Source [id number] 02/26/2021 08:02:22 AM EDT [facility] Name Value Range Interpretation Code Description Data Che rce(s) Supporting Document(s) MAGNESIUM 2.4 mg/dL (1.7-2.4) [facility] ID Date Data Source [id number] 02/26/2021 08:02:22 AM EDT [facility] Name Value Range Interpretation Code Description Data Che rce(s) Supporting Document(s) SODIUM 141 mmol/L (136-145) [facility] POTASSIUM 4.1 mmol/L (3.6-5.2) [facility] CHLORIDE 109 mmol/L (100-108) [facility] CO2 28 mmol/L (22-31) [facility] ANION GAP 4 mmol/L (7-16) L [facility] UREA NITROGEN 15 mg/dL (7-24) [facility] CREATININE 0.45 mg/dL (0.60-1.00) L [facility] BUN/CREAT RATIO 33.3 RATIO (10.0-20.0) [facility] GLUCOSE 102 mg/dL (70-99) [facility] CALCIUM 8.3 mg/dL (8.4-10.2) L [facility] TOTAL PROTEIN 6.3 g/dL (6.4-8.2) L [facility] ALBUMIN 2.9 g/dL (3.2-4.5) L [facility] GLOBULIN 3.4 g/dL (2.7-4.3) [facility] ALB/GLOB RATIO 0.9 RATIO [facility] ALKALINE PHOSPHATASE 62 U/L (45-117) [facility] BILIRUBIN,TOTAL 0.4 mg/dL (0.0-1.0) [facility] PLEASE NOTE:Total bilirubin results may be falselyelevated in patients taking Eltrombopag. AST (SGOT) 24 U/L (11-39) [facility] ALT (SGPT) 22 U/L (12-78) [facility] GFR >60 ml/min/1.73m2 (>59) [facility] GFR ( AMER) >60 ml/min/1.73m2 (>59) [facility] GFR INTERPRETATION [facility] --NORMAL KIDNEY FUNCTION OR MILD DISEASE - GFR >OR= 60CHRONIC KIDNEY DISEASE - GFR 15 - 59RENAL FAILURE - GFR <15 Est. GFR calculation based on the MDRDstudy equation, which assumes a steadystate for creatinine. Est. GFR should notbe used for medication dosing. ID Date Data Source [id number] 02/26/2021 07:44:49 AM EDT [facility] Name Value Range Interpretation Code Description Data Che rce(s) Supporting Document(s) WBC 8.5 10*3/uL (4.1-11.0) [facility] [place] RBC 3.45 10*6/uL (4.00-5.40) L [facility] HGB 11.6 g/dL (12.0-16.0) L [facility] HCT 31.9 % (36.0-47.0) [facility] MCV 92.3 fL (80.0-95.0) [facility] MCH 33.6 pg (27.0-32.0) H [facility] MCHC 36.4 g/dL (32.0-36.0) [facility] RDW 12.7 % (10.5-14.5) [facility] PLT 249 10*3/uL (150-450) [facility] MPV 6.4 fL (7.1-10.7) L [facility] ID Date Data Source [id number] 02/25/2021 07:10:08 PM EDT [facility] Name Value Range Interpretation Code Description Data Che rce(s) Supporting Document(s) LDH 297 U/L (84-246) H [facility] ID Date Data Source [id number] 02/25/2021 07:10:08 PM EDT [facility] Name Value Range Interpretation Code Description Data Che rce(s) Supporting Document(s) URIC ACID 2.1 mg/dL (2.6-6.0) L [facility] ID Date Data Source [id number] 02/25/2021 07:10:08 PM EDT [facility] Name Value Range Interpretation Code Description Data Che rce(s) Supporting Document(s) MAGNESIUM 2.3 mg/dL (1.7-2.4) [facility] ID Date Data Source [id number] 02/25/2021 07:10:08 PM EDT [facility] Name Value Range Interpretation Code Description Data Che rce(s) Supporting Document(s) PHOSPHORUS 2.4 mg/dL (2.5-4.5) L [facility] ID Date Data Source [id number] 02/25/2021 07:10:08 PM EDT [facility] Name Value Range Interpretation Code Description Data Che rce(s) Supporting Document(s) SODIUM 137 mmol/L (136-145) [facility] POTASSIUM 4.2 mmol/L (3.6-5.2) [facility] CHLORIDE 103 mmol/L (100-108) [facility] CO2 26 mmol/L (22-31) [facility] ANION GAP 8 mmol/L (7-16) [facility] UREA NITROGEN 19 mg/dL (7-24) [facility] CREATININE 0.56 mg/dL (0.60-1.00) L [facility] BUN/CREAT RATIO 33.9 RATIO (10.0-20.0) [facility] GLUCOSE 126 mg/dL (70-99) H [facility] CALCIUM 8.5 mg/dL (8.4-10.2) [facility] GFR >60 ml/min/1.73m2 (>59) [facility] GFR ( AMER) >60 ml/min/1.73m2 (>59) [facility] GFR INTERPRETATION [facility] --NORMAL KIDNEY FUNCTION OR MILD DISEASE - GFR >OR= 60CHRONIC KIDNEY DISEASE - GFR 15 - 59RENAL FAILURE - GFR <15 Est. GFR calculation based on the MDRDstudy equation, which assumes a steadystate for creatinine. Est. GFR should notbe used for medication dosing. ID Date Data Source [id number] 02/25/2021 11:01:48 AM EDT [facility] Name Value Range Interpretation Code Description Data Che rce(s) Supporting Document(s) MAGNESIUM 2.3 mg/dL (1.7-2.4) [facility] ID Date Data Source [id number] 02/25/2021 11:01:48 AM EDT [facility] Name Value Range Interpretation Code Description Data Che rce(s) Supporting Document(s) PHOSPHORUS 3.6 mg/dL (2.5-4.5) [facility] ID Date Data Source [id number] 02/25/2021 11:01:48 AM EDT [facility] Name Value Range Interpretation Code Description Data Che rce(s) Supporting Document(s) LDH 268 U/L (84-246) H [facility] ID Date Data Source [id number] 02/25/2021 11:01:48 AM EDT [facility] Name Value Range Interpretation Code Description Data Che rce(s) Supporting Document(s) URIC ACID 3.0 mg/dL (2.6-6.0) [facility] ID Date Data Source [id number] 02/25/2021 11:01:48 AM EDT [facility] Name Value Range Interpretation Code Description Data Che rce(s) Supporting Document(s) SODIUM 135 mmol/L (136-145) L [facility] POTASSIUM 4.2 mmol/L (3.6-5.2) [facility] CHLORIDE 99 mmol/L (100-108) L [facility] CO2 27 mmol/L (22-31) [facility] ANION GAP 9 mmol/L (7-16) [facility] UREA NITROGEN 13 mg/dL (7-24) [facility] CREATININE 0.52 mg/dL (0.60-1.00) L [facility] BUN/CREAT RATIO 25.0 RATIO (10.0-20.0) H [facility] GLUCOSE 127 mg/dL (70-99) H [facility] CALCIUM 8.7 mg/dL (8.4-10.2) [facility] TOTAL PROTEIN 7.3 g/dL (6.4-8.2) [facility] ALBUMIN 3.4 g/dL (3.2-4.5) [facility] GLOBULIN 3.9 g/dL (2.7-4.3) [facility] ALB/GLOB RATIO 0.9 RATIO [facility] ALKALINE PHOSPHATASE 74 U/L (45-117) [facility] BILIRUBIN,TOTAL 0.8 mg/dL (0.0-1.0) [facility] PLEASE NOTE:Total bilirubin results may be falselyelevated in patients taking Eltrombopag. AST (SGOT) 18 U/L (11-39) [facility] ALT (SGPT) 18 U/L (12-78) [facility] GFR >60 ml/min/1.73m2 (>59) [facility] GFR ( AMER) >60 ml/min/1.73m2 (>59) [facility] GFR INTERPRETATION [facility] --NORMAL KIDNEY FUNCTION OR MILD DISEASE - GFR >OR= 60CHRONIC KIDNEY DISEASE - GFR 15 - 59RENAL FAILURE - GFR <15 Est. GFR calculation based on the MDRDstudy equation, which assumes a steadystate for creatinine. Est. GFR should notbe used for medication dosing. ID Date Data Source [id number] 02/24/2021 11:06:17 PM EDT [facility] INFORMATIONPatient MRN Name Date of Age Gend*PT [id number] Beatriz Castaneda 1945 75 years F IPPT Location Admission Date/Time Visit ID Attending [id number] 02/23/212054 --- MD Garett([id number]) EPI ID CSN Admitting Provider [id number] Tracee Conway MD([id number])Inpatient History & PhysicalCarol Kai CastanedaMRN: [id number] and Plan:Principal Problem: Nasopharyngeal carcinomaActive Problems: Hypertension HypercholesterolemiaAssessment & Plan1. 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 patient will need subsequent radiationoncology consult-Patient was on hydromorphone, Percocet and morphine but she reports to havenausea her Percocet and Dilaudid was on hold while in [facility]. Wewill try with oxycodone [place] 12/26/2024 every 4 hourlyCT maxillofacial with contrast revealed paranasal sinus mass versus mucosalthickening in the inferior right sphenoid sinus. The floor of the sphenoidsinus does appear eroded. There is subsequent subjacent tumor. Mild bilateralmaxillary sinus mucosal thickening. Lymph node there is bulky conglomerateright level 2 and level 3 lymphadenopathy. Right cervical lymphadenopathy isincompletely characterized on this study. Bulky right level 2 lymphadenopathymeasures approximately 5.5 into 2 into 5.3 cm.Nasopharynx a nasopharyngeal mass is again demonstrated involved invading theretropharyngeal and prevertebral spaces. Is poorly infiltrated and marginated.Soft tissue density in the right pterygopalatine fossa places the patient atrisk for perineural tumor spread. This is a nasopharyngeal squamous cellcarcinoma with metastatic lymphadenopathy2. Hypertension Continue metoprolol tartrate 12.5 mg twice daily3. Hyperlipidemia Continue simvastatin 20 mg daily4. GERD Continue omeprazole 20 mg daily-5. Dysphagia We will get speech and swallow evaluation6. DVT prophylaxis heparin SQ full codeHPI 75 year old female with past medical history of hypertension, HLD CADstatus post CABG 2007, carotid artery disease status post carotidendarterectomy, left breast cancer status post bilateral mastectomy in , hypertension, obstructive sleep apnea was recently diagnosed for rightnasopharyngeal mass in the beginning of January 2021 and biopsy was positive forB-cell lymphoma with right-sided facial pain and the [facility] for oncology consult andchemotherapy and possible radiation therapy. Patient reports early Dec, 2020 initially she was treated for sinus infectionwith antibiotics due to nasal blockage but not feeling better. She reports inmid December suddenly she was not able to hear on the right ear and then shesubsequently went to see ENT on end december and again she was treated withantibiotics for 5 days for sinus infection but it was not getting better. Shenoticed a lump below the right ear and right neck for which she subsequentlyshe received biopsy February 13, 2021. Patient's reports loss of weight anddifficulty swallowing. Patient reports she has difficulty breathing due tonasal blockage. Patient stated that the right facial pain pain becomeprogressively worse for the past week and become intolerable on February 22, 2020she went to the [facility]. Patient received multiple pain medicationmorphine, Dilaudid, while in [facility].Oncology was consulted prior totransfer to [facility].Past Medical History:Past Medical History:Diagnosis Date Hypercholesterolemia HypertensionPast Surgical History:No past surgical history on file.Medications:Medications Prior to AdmissionMedication Sig Dispense Refill Last Dose aspirin 81 MG chewable tablet Chew 81 mg every morning 02/23/2021 at Unknowntime hydrochlorothiazide (HYDRODIURIL) 25 MG tablet Take 25 mg by mouth everymorning 02/23/2021 at Unknown time metoprolol tartrate (LOPRESSOR) 25 MG tablet Take 12.5 mg by mouth 2 (two)times a day 1/2 tab BID 02/23/2021 at Unknown time omega-3 acid ethyl esters (LOVAZA) 1 g capsule Take 2 g by mouth 2 (two) timesa day 2 capsules AM and 2 Capsules PM Unknown at Unknown time simvastatin (ZOCOR) 20 MG tablet Take 20 mg by mouth nightly Unknown atUnknown time vitamin D, Ergocalciferol, 1.25 MG (13280 UT) CAPS Take 1 capsule by mouthevery 30 (thirty) days I capsule 1st of the month PM Unknown at Unknown timeAllergies:PenicillinsFamily History:Family HistoryProblem Relation Age of Onset Breast cancer Sister Pancreatic cancer BrotherSocial History:Social HistorySocioeconomic History Marital status: Spouse name: Not on file Number of children: Not on file Years of education: Not on file Highest education level: Not on fileOccupational History Not on fileTobacco Use Smoking status: Never Smoker Smokeless tobacco: Never UsedSubstance and Sexual Activity Alcohol use: Not Currently Drug use: Never Sexual activity: Not on fileOther Topics Concern Not on fileSocial History Narrative Not on fileSocial Determinants of HealthFinancial Resource Strain: Difficulty of Paying Living Expenses:Food Insecurity: Worried About Running Out of Food in the Last Year: Ran Out of Food in the Last Year:Transportation Needs: Lack of Transportation (Medical): Lack of Transportation (Non-Medical):Physical Activity: Days of Exercise per Week: Minutes of Exercise per Session:Stress: Feeling of Stress :Social Connections: Frequency of Communication with Friends and Family: Frequency of Social Gatherings with Friends and Family: Attends Spiritism Services: Active Member of Clubs or Organizations: Attends Club or Organization Meetings: Marital Status:Intimate Partner Violence: Fear of Current or Ex-Partner: Emotionally Abused: Physically Abused: Sexually Abused:Review of SystemsConstitutional: Negative for activity change, chills and fatigue.HENT: Positive for congestion, hearing loss and trouble swallowing. Negative fornosebleeds. Nasal speech, nose blockageRight ear hearing lossEyes: Negative for photophobia and visual disturbance.Respiratory: Negative for shortness of breath.Cardiovascular: Negative for chest pain and leg swelling.Gastrointestinal: Negative for abdominal pain, anal bleeding, nausea andvomiting.Endocrine: Negative for polyphagia and polyuria.Genitourinary: Negative for genital sores and hematuria.Musculoskeletal: Negative for joint swelling.Skin: Negative for color change and rash.Neurological: Positive for headaches. Negative for dizziness, tremors, seizures,speech difficulty and light-headedness.Hematological: Positive for adenopathy. Does not bruise/bleed easily.Psychiatric/Behavioral: The patient is not nervous/anxious.Temp: [97.4 F-98.3 F] 98.3 FHeart Rate: [50-67] 67Resp: [16-20] 18BP: (141-196)/(56-104) 177/95Physical ExamConstitutional: Appearance: She is well-developed and well-nourished.HENT: Head: Normocephalic and atraumatic. Comments: 3x5 cm firm mass present underneath the right ear, right mandibleRight carotid endarterectomy scar presentEyes: Extraocular Movements: EOM normal. Pupils: Pupils are equal, round, and reactive to light.Cardiovascular: Rate and Rhythm: Normal rate and regular rhythm. Heart sounds: Normal heart sounds.Peripheral Edema: no lower extremity edema.Pulmonary: Effort: Pulmonary effort is normal. Breath sounds: Normal breath sounds.Abdominal: General: Bowel sounds are normal. Palpations: Abdomen is soft.Musculoskeletal: General: No edema. Cervical back: Normal range of motion and neck supple.Skin: General: Skin is warm.Neurological: Mental Status: She is alert and oriented to person, place, and time.Psychiatric: Mood and Affect: Mood and affect normal.Labs, Imaging and Other Diagnostic Tests:Diagnostic test reviewed for today's visit include: CT scan, Ultrasound, ECG,X-ray, Old Records Reviewed and Labs.Signature: JOSÉ Coleate: February 24, 2021Time: 11:06 PM Name Value Range Interpretation Code Description Data Che rce(s) Supporting Document(s) ID Date Data Source [id number] 02/24/2021 07:23:57 PM EDT [facility] NT INFORMATIONPatient MRN Name Date of Age Gend*PT [id number] Beatriz Castaneda 1945 75 years F IPPT Location Admission Date/Time Visit ID Attending [id number] 02/23/212054 --- MD Garett ([id number]) EPI ID CSN Admitting Provider [id number] Tracee Conway MD([id number])Inpatient Consult NoteCarol Kai Plzhhkm45 years female 1945MRN: [id number] for consult: 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 Castaneda is a 75yo F with PMH most pertinent for distant history of breastcancer s/p bilateral mastectomies in 1992, CAD s/p CABG in 2007, s/p carotidendarterectomy, HTN, HLD, IVANA who was in her usual state of health until November2020 when she developed sinus pressure and loss of hearing in her right ear.She also noted fatigue and 11lb unintentional weight loss, no fever/chills,rash, itching, bleeding, bruising.She was treated with several rounds of antibiotics without success andultimately noted right neck swelling which she brought to the attention of herENT, which prompted imaging.CT max/face showed a 6cm nasopharyngeal mass.She had a biopsy of the nasopharyngeal mass in [place] 02/14/24 which [facility] and diagnosis was DLBCL, activated B-cell type, FISHpositive for MYC and BCL6 and presence of del17p.In the interim, she was admitted to [facility] in [place] withsignificant pain from her nasopharyngeal mass. She was on oral opioid painmedications that were making her vomit each time she took them, so pain wasunable to be controlled. Pain in the nasopharyngeal area was relieved with IVmorphine inpatient. No chest pain or SOB.Oncology, Dr. Halwey, was consulted and recommended transfer for inpatientchemotherapy, as that was not available at [facility].Staging scans 02/22/21 showed a large nasopharyngeal mass measuring 7.2x3.6x4.8cmtoward the right invading the retropharyngeal and prevertebral spaces andencircling the distal cervical right ICA. Anteriorly there is extension intothe nasal cavity and abuts/likely invades the right soft palate. There is bulkyright cervical adenopathy measuring up to 5.5cm. No evidence of disease in thechest, abdomen, or pelvis on scans.She was transferred to [facility] 02/24/21. Here, echocardiogram and bone marrow weredone.I discussed the diagnosis with the patient, her (Thao), and daughter(Giuliana).Past Medical History:Past Medical History:Diagnosis Date Hypercholesterolemia HypertensionPast Surgical History:No past surgical history on file.Medications:Medications Prior to AdmissionMedication Sig Dispense Refill Last Dose aspirin 81 MG chewable tablet Chew 81 mg every morning 02/23/2021 at Unknowntime hydrochlorothiazide (HYDRODIURIL) 25 MG tablet Take 25 mg by mouth everymorning 02/23/2021 at Unknown time metoprolol tartrate (LOPRESSOR) 25 MG tablet Take 12.5 mg by mouth 2 (two)times a day 1/2 tab BID 02/23/2021 at Unknown time omega-3 acid ethyl esters (LOVAZA) 1 g capsule Take 2 g by mouth 2 (two) timesa day 2 capsules AM and 2 Capsules PM Unknown at Unknown time simvastatin (ZOCOR) 20 MG tablet Take 20 mg by mouth nightly Unknown atUnknown time vitamin D, Ergocalciferol, 1.25 MG (83501 UT) CAPS Take 1 capsule by mouthevery 30 (thirty) days I capsule 1st of the month PM Unknown at Unknown timeAllergies:PenicillinsFamily History:No family history on file.Social History:Social HistorySocioeconomic History Marital status: Spouse name: None Number of children: None Years of education: None Highest education level: NoneOccupational History NoneTobacco Use Smoking status: Never Smoker Smokeless tobacco: Never UsedSubstance and Sexual Activity Alcohol use: Not Currently Drug use: Never Sexual activity: NoneOther Topics Concern NoneSocial History Narrative NoneSocial Determinants of HealthFinancial Resource Strain: Difficulty of Paying Living Expenses:Food Insecurity: Worried About Running Out of Food in the Last Year: Ran Out of Food in the Last Year:Transportation Needs: Lack of Transportation (Medical): Lack of Transportation (Non-Medical):Physical Activity: Days of Exercise per Week: Minutes of Exercise per Session:Stress: Feeling of Stress :Social Connections: Frequency of Communication with Friends and Family: Frequency of Social Gatherings with Friends and Family: Attends Spiritism Services: Active Member of Clubs or Organizations: Attends Club or Organization Meetings: Marital Status:Intimate Partner Violence: Fear of Current or Ex-Partner: Emotionally Abused: Physically Abused: Sexually Abused:Review of Systems:All systems were reviewed and found negative except for those mentioned in theHPI.Physical Exam:Temp: [97.4 F-98.3 F] 97.4 FHeart Rate: [50-58] 53Resp: [16-20] 20BP: (148-173)/(65-104) 148/70Awake, alert, oriented times 3. Mildly distressed from pain and intermittentlyvomiting throughout interview.Moves all extremities.General appearance: alert, appears stated age, cooperative and fatiguedHead: Normocephalic, without obvious abnormality, sinuses tender to percussion,nasal voiceNeck: bulky adenopathy righ t cervical regionLungs: Clear to auscultation bilaterally.Breasts: Breasts are surgically absent bilaterallyChest wall: Healed midline sternotomyHeart: regular rate and rhythmAbdomen: soft, non-tender; bowel sounds normal; no masses, no organomegalyExtremities: No edema.Lymph nodes: Cervical adenopathy: rightNo other palpable adenopathyLabs, Imaging and Other Diagnostics:Diagnostic tests reviewed:Labs from today and outside labs and imagingImpression and Recommendations:75yo female with distant history of breast cancer s/p bilateral mastectomy [id number], CAD s/p CABG in 2007, s/p carotid endarterectomy, HTN, HLD, IAVNA now withhigh grade large cell lymphoma of the nasopharynx, double hit MYC and BCL6,del17p.Outside CT scans show a very large >7cm mass in the nasopharynx which is locallydestructive into the retropharyngeal and prevertebral spaces, nasal cavity,right pterygopalatine fossa, and right soft palate. There is concern forperineural invasion. There is also bulky adenopathy in the right cervicalregionBone marrow obtained today and results are pending.She was highly functional prior to symptoms developing in November 2020.Together with her significant symptoms and highly aggressive, rapidlyprogressing B-cell lymphoma she warrants inpatient chemotherapy.We discussed the risk/benefits of various treatment regimens and she willcommence DA R-EPOCH with growth factor support. Based on the location andaggressive characteristics of the lymphoma she warrants OPERATIONS TRAINER prophylaxis and wewill arrange for CSF sampling to test for involvement as well as IT MTX withinterventional radiology.- Echo with EF 60%- BMbx today, will follow up results- Port unable to be placed in IR, will obtain a PICC- Plan for CSF sampling and prophylaxis- Labs to included hepatitis panel, HIV, TLS labs. Will start allopurinol andIVF hydration.- Pain control with IV morphine.The above was discussed with the patient, her , and daughter.She and her family are aware this is a highly aggressive lymphoma with poorprognosis.She agreed to proceed with chemotherapy. She will receive steroids tonight,Rituxan tomorrow, and chemotherapy starting Saturday.Signature: Candy Barnes, MDDate: February 24, 2021Time: 2:33 PM Name Value Range Interpretation Code Description Data Che rce(s) Supporting Document(s) ID Date Data Source [id number] 02/24/2021 06:03:23 PM EDT [facility] NT INFORMATIONPatient MRN Name Date of Age Gend*PT [id number] Beatriz Castaneda 1945 75 years F IPPT Location Admission Date/Time Visit ID Attending [id number] 02/23/212054 --- Averytrell Bajwa MD ([id number]) EPI ID CSN Admitting Provider [id number] Tracee Conway MD([id number]) Attestation signed by Althea Zarate DO at 02/24/2021 6:03 PMProcedure performed under my supervision, I agree with above report.Althea Zarate DO 02/24/2021 6:03 PMDepartment of Interventional Radiology ---------Brief Operative/Invasive Procedure NoteCarol Kai WorkmanDATE OF : 1945N # [id number] DATE: 02/24/2021ROVIDER:Jose Peters NP 02/24/2021 3:23 PMASSISTANCE(S): NonePROCEDURE:CT guided bone marrow biopsy.PRE- PROCEDURE DIAGNOSIS:Large B-Cell lymphomaPOST PROCEDURE DIAGNOSIS:Large B-Cell lymphomaANESTHESIA TYPE:moderate and local 1% Lidocaine (8cc)DRAINS:NoneSPECIMENS:Obtain bone core and aspirates from left iliac bone.ESTIMATED BLOOD LOSS: MinimalGRAFTS OR IMPLANTS:NoneFINDINGS: Consistent with operative diagnosisCOMPLICATIONS: NoneSee dictated note.Jose Peters NPDepartment of Interventional Radiology Name Value Range Interpretation Code Description Data Che rce(s) Supporting Document(s) ID Date Data Source [id number] 02/24/2021 04:34:51 PM EDT [address] [id number] Name: BEATRIZ Quinn WORKMANDOB: 1945Sex: FOrdering Provider: ABRIL Parker Prov: ABRIL Sen Provider: Procedure Performed: CT GUIDED NEEDLE BIOPSY BONE MARROW AND ASPIRATIONSExam Date: 02/24/2021 15:28MRN: [id number] Number: [id number] Class: InpatientAccount #: [id number] for Exam: large b-cell lymphoma, please send for flow cytometry and cytogeneticsTechnique: CT Guided needle biopsy.Comparison: Jorje is a 75 years year old Female with a history of large B-cell lymphoma. A bone marrow biopsy has been requested. Informed consent was obtained. Risks of the procedure were explained to the patient to include but are not limited to: bleeding, infection, injury to adjacent vessels or adjacent structures and reaction to medication/product used. Patient expressed understanding of these risk factors. The patient was positioned on the CT table and images were obtained. A safe site for performing the biopsy was chosen. The overlying skin was marked, prepped and draped in usual sterile fashion. A time out was performed verifying patient name and procedure to be performed. Moderate sedation was administered. Sterile barrier technique was utilized throughout the procedure. Local anesthesia was obtained with 1% lidocaine. Under CT guidance with image documentation, an 11-gauge biopsy needle was advanced into the left iliac crest. Aspirate and core samples were obtained and sent to the lab for analysis. The needle was removed. There were no immediate complications noted. Hemostasis achieved. A dressing was applied. Patient tolerated the procedure well. The procedure was performed by Jose Peters NP-C under the direct supervision of Dr. Zarate. Patient received Versed 1 mg IV and fentanyl 50 mcg IV. Approximately 24 minutes of moderate sedation services were administered during this procedure. There was an interventional radiology registered nurse present in the room monitoring patient's status throughout sedation administration.Impression: CT-guided bone marrow biopsy under moderate sedation as described above with no acute complications. Report electronically approved by: JOSE PETERS On 02/24/2021 4:13 PMThe procedure described above was performed under my supervision and I agree with this reportReport electronically signed by: ALTHEA ZARATE On 02/24/2021 4:34 PMWorkstation ID: [id number] Name Value Range Interpretation Code Description Data Che rce(s) Supporting Document(s) ID Date Data Source [id number] 03/13/2021 07:47:07 AM EDT [facility] [place] Name Value Range Interpretation Code Description Data Che rce(s) Supporting Document(s) CYTOGENETIC RESULT [facility] PERFORMING LAB [facility] [address] [place] [address] ID Date Data Source [id number] 03/01/2021 08:07:46 AM EDT [facility] [place] Name Value Range Interpretation Code Description Data Che rce(s) Supporting Document(s) SOURCE (RESOE) [facility] BONE MARROW RESULT [facility] PERFORMING LAB [facility] [address] [place] [address] ID Date Data Source [id number] 02/28/2021 02:42:30 PM EDT [facility] [place] Name Value Range Interpretation Code Description Data Che rce(s) Supporting Document(s) EBV VCA IGG @ (NEG) A [facility] May indicate a current orprevious in fection. EBV VCA IGM @ (NEG) [facility] EBV EARLY AG IGG @ (NEG) [facility] EBV NUCLEAR AG IGG @ (NEG) A [facility] of [facility] May indicate a current orprevious in fection. ID Date Data Source [id number] 02/25/2021 06:53:33 AM EDT [facility] [place] Name Value Range Interpretation Code Description Data Che rce(s) Supporting Document(s) TOTAL PROTEIN 7.3 g/dL (6.4-8.2) [facility] [place] ALBUMIN 3.6 g/dL (3.2-4.5) [facility] GLOBULIN 3.7 g/dL (2.7-4.3) [facility] ALB/GLOB RATIO 1.0 RATIO [facility] [place] BILIRUBIN,TOTAL 1.0 mg/dL (0.0-1.0) [facility] [place] PLEASE NOTE:Total bilirubin results may be falselyelevated in patients taking Eltrombopag. BILIRUBIN,CONJUGATED 0.1 mg/dL (0.0-0.3) [facility] [place] BILIRUBIN,UNCONJ. 0.9 mg/dL (0.0-0.7) H [facility] [place] ALKALINE PHOSPHATASE 76 U/L (45-117) [facility] [place] AST (SGOT) 18 U/L (11-39) [facility] ALT (SGPT) 17 U/L (12-78) [facility] [place] ID Date Data Source [id number] 02/24/2021 04:38:27 PM EDT [facility] [place] Name Value Range Interpretation Code Description Data Che rce(s) Supporting Document(s) HIV 1/2 SCREEN @ (NEG) [facility] Testing performed using Siemens [employer] 4th gen CHIV combo assay.This assay detects the HIV1 p24 antigenin addition to antibodies to HIV1 and HIV2. ID Date Data Source [id number] 02/24/2021 04:30:43 PM EDT [facility] [place] Name Value Range Interpretation Code Description Data Che rce(s) Supporting Document(s) URIC ACID 2.8 mg/dL (2.6-6.0) [facility] [place] ID Date Data Source [id number] 02/24/2021 04:30:43 PM EDT [facility] [place] Name Value Range Interpretation Code Description Data Che rce(s) Supporting Document(s) LDH 283 U/L (84-246) H [facility] [place] ID Date Data Source [id number] 02/24/2021 12:00:47 PM EDT [facility] Name Value Range Interpretation Code Description Data Che rce(s) Supporting Document(s) &PDF [facility] QTITUi4dWbSLFzZd43/RJTxmXUGqy0QoIXxlRXd2GZraGESnV3LrgRegYPsMMecYWZ5tM4CRW7ztSLRy oRX DpChDEgTH0WI5gLOXyifNickL6bC3qQQ2SBPB+Gb2NDW2bu9VvUMa9WWGhn5QfLSbkJJj8S6JblTAget QwTqkobTJFYREyBYWeU2mfgrd2kWKqNreaFn9UJgQbr3NvNRPxMMjAjv1rR2/bOBZ+X2D/W8YNYriGEg Vb6pQVLuyrtzFzQfpy7aRk5XYEFyujfO9SaN94l88e WSNdGpxbG3ytnGctYRBfcze+I4zeXeI/97vYiUMppaj+W/1Bv303kQy//86eIrm75rKzR9vwd84LsWID KtFJEfL1GLgQxg3jPmpY9oz5mVn4phjIUkk/ASguQBaEth9gJNbezkYt+PXfJYvMhvmDvQFY1X/HP4rh f1BENBQqNHAIEIlvKa4CEF2BZMKZH/JuId0kMhm8HF [file] AgICAgICAgICAgICAgICAgICAgICAgICAgICAgICAgICAgICAgICAgICAgICAgICAgICAgICAgICANCi AgICAgICAgICAgICAgICAgICAgICAgICAgICAgICAg ICAgICAgICAgICAgICAgICAgICAgICAgICAgICAgICAgICAgICAgICAgICAgICAgICAgICAgICAgICAg ICAgICAgICANCiAgICAgICAgICAgICAgICAgICAgICAgICAgICAgICAgICAgICAgICAgICAgICAgICAg ICAgICAgICAgICAgICAgICAgICAgICAgICAgICAgIC AgICAgICAgICAgICAgICAgICANCiAgICAgICAgICAgICAgICAgICAgICAgICAgICAgICAgICAgICAgIC AgICAgICAgICAgICAgICAgICAgICAgICAgICAgICAgICAgICAgICAgICAgICAgICAgICAgICAgICAgIC ANCiAgICAgICAgICAgICAgICAgICAgICAgICAgICAg ICAgICAgICAgICAgICAgICAgICAgICAgICAgICAgICAgICAgICAgICAgICAgICAgICAgICAgICAgICAg ICAgICAgICAgICANCiAgICAgICAgICAgICAgICAgICAgICAgICAgICAgICAgICAgICAgICAgICAgICAg ICAgICAgICAgICAgICAgICAgICAgICAgICAgICAgIC AgICAgICAgICAgICAgICAgICAgICANCiAgICAgICAgICAgICAgICAgICAgICAgICAgICAgICAgICAgIC AgICAgICAgICAgICAgICAgICAgICAgICAgICAgICAgICAgICAgICAgICAgICAgICAgICAgICAgICAgIC AgICANCiAgICAgICAgICAgICAgICAgICAgICAgICAg ICAgICAgICAgICAgICAgICAgICAgICAgICAgICAgICAgICAgICAgICAgICAgICAgICAgICAgICAgICAg ICAgICAgICAgICAgICANCiAgICAgICAgICAgICAgICAgICAgICAgICAgICAgICAgICAgICAgICAgICAg ICAgICAgICAgICAgICAgICAgICAgICAgICAgICAgIC AgICAgICAgICAgICAgICAgICAgICAgICANCiAgICAgICAgICAgICAgICAgICAgICAgICAgICAgICAgIC AgICAgICAgICAgICAgICAgICAgICAgICAgICAgICAgICAgICAgICAgICAgICAgICAgICAgICAgICAgIC AgICAgICANCjw/vXZtK8damODjhyE7D8xwJi5YLq5H BJ0fd7MyXNGqZSsnqqTxXnoJFtCtKAZxIkfCGkt0TIbdUW6XtFHfJ2ToD7GpONupQY0NCJAsBBWdvRTx JTQeYQDgTwP8ZJOeAMlzSI0EuFPhBThmVFZqGFIrHyPoSBFrPP6JTYKbK848xdTyLg5KAj9NDkPiJC5j zk9WNxOxRENlEhtLVhv0FSyeRT1ZtUIhM4NbbXJfq5 hWYwXcQ4VHWMX8RSWkJy6KJQTqIpWgAGVbXJbiXG0iTZPdHZYDxFolsfG3DW3CNR3xfrEpCV1SDoGuUb 7lYe6PSeSqG2YtX7PyAMGsWVWXCCliQG6GSHIjTUV1LXImNNFhLSTVBjTsL17hNG4GY9Wsv96jPcQ3AK WeDbFaGBjcUS40wCxogoEveXNrhAfdBX5NSp3+DQpl pqOmDpuKXnomNVDCIvPsRxvFApWzDDXmKEUzEFUsQqW9BuBeQi6HTEBfVTGdCPKfFuWiNQRlYIGiNWab YWOwYTV8MEL3FNKxVZWuWU1CKvGkKKBmPgT2UuRpCTPsYYGkkg7FBXMtGBBsHRW2JCGnMNNkVJSoIZgd BDGnFIVvFBVnCGUdIWZiDB9AGuVlORHkAWC5WITwMY TiKTJozf6ADTQxQVNnVPJ2BJHrIIIvJCFnZDmqNQRtJSV6Nso1WCKmEVVrJO9HCeJfGFRqULP5HSmtVV TqACSdda8QGWAfLPLpNQg1NgEyCINuMCSiDWabLCWaJRX4FSG8SAQuZSIkWB7SMkFpCEMuETmrOFBbYW QbDHWfda7DEPZzWWNmIuX6FQEjWVDnMCGiOKdiGUHg WWI6MGhiXGDuQRZsYN3JTjJbAAXlJDLvUvwfIJZjSRMrjn6SENJqSUPwWyO8QoGxUYFtCXBnTJnsWRJe TDYjZTH0LOBbHYEnKS3TJdUoUXFdOYThAXleRJYqUODjhc4UNLMxXSRxDjV0ZRExZBZrQLQvNYwiXXHf KCI6MIp4YJIjJVXzUX3RDbBiQRJsCVCbJOLiZTPfXH Ofjz7QLWGwQFFlRKM4HVBuQIEuFLHxDQfqOKVkDHY1GiXcXPOuWYDkRV8ZAuHlSHVoOzH4TDuxUQYgXL Adtw0MQMMqDKKuSXQxOMGbSXNxXLSrDPdfKGGdVCY2IPh8FZNaBIFmSJ6PZrAlAZefRCUZXuk9LIpfN1 k0EVMiMl4SU8Hsh9HhFuWlJMYQMKoqIG5znqUxELQm Hi4VM2eHGtb7DYP8CKW7FEyaTBI6ObCuDNIsAov1AlAmElLhGPAwTW6vBEaiHontZSB3XUZrPEU4JOLv U5PaEaK7KONwTeSxRJUjMxRbXD1NRc3TDgU2KOK6gVTwVa5KBmHbFkKINkPzOH2UYJu= ID Date Data Source [id number] 03/03/2021 02:18:35 PM EDT [facility] [place], [place] [address]Tel# BONZ MARROW REPORTPatient Name: BEATRIZ CASTANEDA: 1945ccession #:[id number](s) ReceivedA: Bone marrow aspirateB: Bone marrow biopsyClinical Diagnosis and HistoryNasopharyngeal carcinoma. Hypertension, hypercholesterolemia.DIAGNOSISPERIPHERAL BLOOD: UNREMARKABLE BLOOD SMEAR. BONE MARROW, ASPIRATE SMEAR/TOUCH PREP AND CORE BIOPSY: CELLULAR MARROW SHOWING TRILINEAGE HEMATOPOIESIS. SCATTERED SMALL LYMPHOID AGGREGATES. NO EVIDENCE OF LARGE CELL LYMPHOMA. Peripheral Blood:CBC Data Reference Values (Female)WBC 5.0 K/uL (4.1-11.0) RBC 3.8 M/uL (4.00-5.40) HGB 12.7 g/dL (12.0-16.0)HCT 35.4 % (36.0-47.0) MCV 91.3 FL (80-95) MCH 32.7 Pg (27.0-32.0) MCHC35.8 g/dL ( 32.0-36.0) RDW 12.6 % (10.5-14.5) PLT 286 K/uL (150- 400) Differential Count (100 cells) 68% Segmented neutrophils 23% Lymphocytes 5% Monocytes 4% Eosinophils 0% Tocmjwuji126 % TOTALMORPHOLOGY: Unremarkable blood smear.Bone Marrow: ASPIRATE SMEARS/TOUCH PREP: Differential cell count (200 cells) 23% Erythroid precursors 1% Blasts 5% Promyelocytes 12% Myelocytes/Metamyelocytes 40% Band neutrophils/Segmented neutrophils 5% Eosinophils and precursors 0% Basophils and precursors 2% Monocytes 11% Lymphocytes 1% Plasma % TOTALMORPHOLOGY: Marginally adequate aspirate smears/touch prep showing an M:Eratio (2.5:1) and with evidence of maturing neutrophilic granulopoiesis.No atypical lymphoid cells, dysplastic features or increase in blastsidentified.Iron stain shows minimal iron stores. No ring sideroblasts seen.Microscopic DescriptionBIOPSY/CLOT SECTION: Adequate, fragmented, bone marrow biopsy and clotsection showing pockets of hematopoietic marrow admixed with red bloodclot. Trilineage hematopoiesis is identified along with scattered smalllymphoid aggregates. No sheeting out large atypical cells identified.Immunohistochemical stains were performed. CD20 highlights interstitialand small B-cell aggregates admixed with CD3+ cells. CD138 marksoccasional interstitial plasma cells. [place] and lambda in situhybridization haja rare cells indeterminate for light chain restriction.CD34 ramirez occasional blasts, not increased.Per report, flow cytometry performed at [facility] ([id number])demonstrated predominantly T-cells with normal expression of negron T- cellmarkers and a normal CD4/CD8 ratio, normal proportions of NK and cytotoxicT- cells and polyclonal B-cells.CD34 blasts compose <1% of cells studied. Blasts, monocytes andgranulocytes showed no definite immunophenotypic aberrancies. Gross DescriptionThe specimen is received in two containers. Specimen A is labeled "bonemarrow bx and clot on the lid". Specimen consists of an irregularly shapedfragment of blood clot measuring 1.2 x 1.0 x 0.3 cm. Sectioned andentirely submitted in one block as A1. 1 + 1. Specimen 2 is labeled "bone marrow bx". It consists of a 2.0 x 1.0 x 0.3cm aggregate of blood clot. A definite bone core is not identified. Thespecimen is entirely submitted following light decalcification inImmunocal as B1. 1 + 1. emgpms/gmm Reported: 03/03/2021Electronically Signed Out By Garth Robledo M.D. [facility] [place] [address] 29259datIqtgluesb component performed at [facility] [employer] [facility], Histopathology, [address] [place] [address], [phone].Reported at [facility], [address] [place] [address], [phone]. This report may includeimmunohistochemical or in-situ hybridization results. Testing wasdeveloped and the performance characteristics determined by [facility] as required by CLIA '88. The FDA hasdetermined that approval for specific use is not necessary for clinicaluse. The quality of Hematoxylin and Eosin stains and as applicable, forall immunohistochemical and/or special stains, including positive andnegative controls, were reviewed and considered appropriate.ICD codes C11.9CPT codesA: 94677I, 80959H, 22277Q, 16793GU: 54974E, 21783P, 32573o, 76885(3), 82453HE, 67720 Name Value Range Interpretation Code Description Data Che rce(s) Supporting Document(s) ID Date Data Source [id number] 02/25/2021 06:28:22 PM EDT [facility] Name Value Range Interpretation Code Description Data Che rce(s) Supporting Document(s) BONE MARROW ROUT [facility] ID Date Data Source [id number] 02/24/2021 11:09:42 PM EDT [facility] Name Value Range Interpretation Code Description Data Che rce(s) Supporting Document(s) RETIC % 0.7 % (0.6-2.1) [facility] PERFORMED AT [address] [place] [id number] RETIC INDEX 0.6 % (0.5-1.9) [facility] [place] ABSOLUTE RETIC 0.03 10*6/uL (0.027-0.101) Lab [facility] [place] ID Date Data Source [id number] 02/24/2021 11:03:32 PM EDT [facility] [place] Name Value Range Interpretation Code Description Data Che rce(s) Supporting Document(s) URIC ACID 2.9 mg/dL (2.6-6.0) [facility] [place] ID Date Data Source [id number] 02/24/2021 11:03:32 PM EDT [facility] Name Value Range Interpretation Code Description Data Che rce(s) Supporting Document(s) LDH 260 U/L (84-246) H [facility] [place] ID Date Data Source [id number] 02/24/2021 05:10:17 PM EDT [facility] [place] Name Value Range Interpretation Code Description Data Che rce(s) Supporting Document(s) HEPATITIS C AB @ (NEG) [facility] [place] NOT INFECT ED WITH HCV, UNLESS RECENTINFECTION IS SUSPECTED OR OTHER EVIDENCEEXISTS TO INDICATE HCV INFECTION. ID Date Data Source [id number] 02/24/2021 05:10:17 PM EDT [facility] [place] Name Value Range Interpretation Code Description Data Che rce(s) Supporting Document(s) HEP. B CORE IGM @ (NEG) [facility] [place] ID Date Data Source [id number] 02/24/2021 05:10:17 PM EDT [facility] [place] Name Value Range Interpretation Code Description Data Che rce(s) Supporting Document(s) HEPATITIS B S AG @ (NEG) [facility] ID Date Data Source [id number] 02/24/2021 05:10:17 PM EDT [facility] [place] Name Value Range Interpretation Code Description Data Che rce(s) Supporting Document(s) HEP B S AB QUANT @ 5.7 mIU/mL [facility] A MINIMUM LEVEL OF 10 mIU/mL IS SUGGESTE DTO INSURE COMPLETE IMMUNITY. IF NEGATIVEOR LESS THAN 10 mIU/mL AT 1 TO 2 MONTHSFOLLOWING THE FINAL DOSE OF THE HEP BVACCINE SERIES, REVACCINATION ISRECOMMENDED FOR SELECT PATIENT POPULATIONS(SEE MMWR 2018:67(1) SEP 06, 2017). ID Date Data Source [id number] 02/24/2021 02:00:54 PM EDT [facility] Name Value Range Interpretation Code Description Data Che rce(s) Supporting Document(s) NEUT % 59.0 % (35.0-75.0) [facility] [place] LYMPH % 25.0 % (16.0-52.0) [facility] [place] MONO % 11.0 % (0.0-8.0) H [facility] EOS % 5.0 % (0.0-5.0) [facility] NEUT # 3.0 10*3/uL (1.8-7.7) [facility] [place] LYMPH # 1.3 10*3/uL (1.2-4.8) [facility] [place] MONO # 0.6 10*3/uL (0.0-0.8) [facility] [place] Eosinophils [#/volume] in Blood by Automated count 0.3 10*3/uL (0.0-0 .5) [facility] [place] ID Date Data Source [id number] 02/24/2021 11:53:15 AM EDT [facility] [place] Name Value Range Interpretation Code Description Data Che rce(s) Supporting Document(s) MAGNESIUM 2.3 mg/dL (1.7-2.4) [facility] [place] ID Date Data Source [id number] 02/24/2021 11:53:15 AM EDT [facility] [place] Name Value Range Interpretation Code Description Data Che rce(s) Supporting Document(s) PHOSPHORUS 3.0 mg/dL (2.5-4.5) [facility] [place] ID Date Data Source [id number] 02/24/2021 11:53:15 AM EDT [facility] Name Value Range Interpretation Code Description Data Che rce(s) Supporting Document(s) SODIUM 134 mmol/L (136-145) L [facility] POTASSIUM 3.8 mmol/L (3.6-5.2) [facility] CHLORIDE 99 mmol/L (100-108) L [facility] CO2 28 mmol/L (22-31) [facility] ANION GAP 7 mmol/L (7-16) [facility] UREA NITROGEN 11 mg/dL (7-24) [facility] CREATININE 0.44 mg/dL (0.60-1.00) L [facility] BUN/CREAT RATIO 25.0 RATIO (10.0-20.0) H [facility] GLUCOSE 85 mg/dL (70-99) [facility] CALCIUM 8.6 mg/dL (8.4-10.2) [facility] GFR >60 ml/min/1.73m2 (>59) [facility] GFR ( AMER) >60 ml/min/1.73m2 (>59) [facility] GFR INTERPRETATION [facility] --NORMAL KIDNEY FUNCTION OR MILD DISEASE - GFR >OR= 60CHRONIC KIDNEY DISEASE - GFR 15 - 59RENAL FAILURE - GFR <15 Est. GFR calculation based on the MDRDstudy equation, which assumes a steadystate for creatinine. Est. GFR should notbe used for medication dosing. ID Date Data Source [id number] 02/24/2021 11:43:38 AM EDT [facility] Name Value Range Interpretation Code Description Data Che rce(s) Supporting Document(s) APTT 27.3 s (22.0-34.3) [facility] ID Date Data Source [id number] 02/24/2021 11:43:38 AM EDT [facility] Name Value Range Interpretation Code Description Data Che rce(s) Supporting Document(s) PT 10.5 s (9.2-11.9) [facility] INR 1.00 [facility] SUGGESTED THERAPEUTIC RANGES USING INR F ORSTABILIZED ANTICOAGULATED PATIENTS:STANDARD DOSE THERAPY INR 2.0-3.0 DVT, PE, PREVENT DVT OR EMBOLISMHIGH DOSE THERAPY INR 2.5-3.5 PREVENT EMBOLISM FROM MECHANICAL HEART VALVE ID Date Data Source [id number] 02/24/2021 11:21:15 AM EDT [facility] [place] Name Value Range Interpretation Code Description Data Che rce(s) Supporting Document(s) WBC 5.0 10*3/uL (4.1-11.0) [facility] [place] RBC 3.88 10*6/uL (4.00-5.40) L [facility] HGB 12.7 g/dL (12.0-16.0) [facility] HCT 35.4 % (36.0-47.0) L [facility] [place] MCV 91.3 fL (80.0-95.0) [facility] [place] MCH 32.7 pg (27.0-32.0) H [facility] [place] MCHC 35.8 g/dL (32.0-36.0) [facility] [place] RDW 12.6 % (10.5-14.5) [facility] [place] PLT 286 10*3/uL (150-450) [facility] [place] MPV 6.8 fL (7.1-10.7) L [facility] [place] ID Date Data Source [id number] 02/24/2021 11:03:32 PM EDT [facility] [place] Name Value Range Interpretation Code Description Data Che rce(s) Supporting Document(s) TOTAL PROTEIN 6.6 g/dL (6.4-8.2) [facility] ALBUMIN 3.3 g/dL (3.2-4.5) [facility] GLOBULIN 3.3 g/dL (2.7-4.3) [facility] ALB/GLOB RATIO 1.0 RATIO [facility] BILIRUBIN,TOTAL 0.9 mg/dL (0.0-1.0) [facility] PLEASE NOTE:Total bilirubin results may be falselyelevated in patients taking Eltrombopag. BILIRUBIN,CONJUGATED 0.1 mg/dL (0.0-0.3) [facility] BILIRUBIN,UNCONJ. 0.8 mg/dL (0.0-0.7) H [facility] ALKALINE PHOSPHATASE 71 U/L (45-117) [facility] AST (SGOT) 14 U/L (11-39) [facility] ALT (SGPT) 14 U/L (12-78) [facility] ID Date Data Source [id number] 02/24/2021 02:38:28 AM EDT [facility] Name Value Range Interpretation Code Description Data Che rce(s) Supporting Document(s) SODIUM 135 mmol/L (136-145) L [facility] POTASSIUM 3.6 mmol/L (3.6-5.2) [facility] CHLORIDE 101 mmol/L (100-108) [facility] CO2 30 mmol/L (22-31) [facility] ANION GAP 4 mmol/L (7-16) L [facility] UREA NITROGEN 13 mg/dL (7-24) [facility] CREATININE 0.45 mg/dL (0.60-1.00) L [facility] BUN/CREAT RATIO 28.9 RATIO (10.0-20.0) H [facility] GLUCOSE 100 mg/dL (70-99) H [facility] CALCIUM 8.5 mg/dL (8.4-10.2) [facility] GFR >60 ml/min/1.73m2 (>59) [facility] GFR ( AMER) >60 ml/min/1.73m2 (>59) [facility] GFR INTERPRETATION [facility] --NORMAL KIDNEY FUNCTION OR MILD DISEASE - GFR >OR= 60CHRONIC KIDNEY DISEASE - GFR 15 - 59RENAL FAILURE - GFR <15 Est. GFR calculation based on the MDRDstudy equation, which assumes a steadystate for creatinine. Est. GFR should notbe used for medication dosing. ID Date Data Source [id number] 02/24/2021 02:00:41 AM EDT [facility] Name Value Range Interpretation Code Description Data Che rce(s) Supporting Document(s) WBC 4.8 10*3/uL (4.1-11.0) [facility] [place] RBC 3.81 10*6/uL (4.00-5.40) L [facility] HGB 12.6 g/dL (12.0-16.0) [facility] [place] HCT 35.8 % (36.0-47.0) L [facility] [place] MCV 93.8 fL (80.0-95.0) [facility] [place] MCH 33.0 pg (27.0-32.0) H [facility] [place] MCHC 35.2 g/dL (32.0-36.0) [facility] RDW 12.7 % (10.5-14.5) [facility] PLT 282 10*3/uL (150-450) [facility] MPV 6.6 fL (7.1-10.7) L [facility] ID Date Data Source [id number] 02/23/2021 08:10:00 AM EDT [place] ([facility]) Name Value Range Interpretation Code Description Data Che rce(s) Supporting Document(s) Reported Physicians See Note [facility]orted [facility] ([facility]) Note: Reported Physicians:Ordering: Karrie rodriguez [phone], Dana MDAttending: PRANAV BOLAÑOSSHConsulting: HAWLEY, TARIQAdmitting: DROZHZHIN, DMITRYCopy To: THAO BOLAÑOSJESHCopy To: Evelin GonzalezaCopy To: Edilberto OsorioynCopy To: DROZHZHIN, DMITRYCopy To: HAWLEY, MARIEL ID Date Data Source [id number] 02/23/2021 08:10:00 AM EDT [place] ([facility]) Name Value Range Interpretation Code Description Data Che rce(s) Supporting Document(s) GLUCOSE, FASTING 143 MG/DL Above high normal GLUCOSE, FAS TING [place] ([facility]) CREATININE FOR GFR 0.73 MG/DL Significant change down CREA TININE FOR GFR [place] ([facility]) BLOOD UREA NITROGEN 13 MG/DL Normal BLOOD UREA NITRO GEN [place] ([facility]) GLOMERULAR FILTRATION RATE > 60.0 Normal GLOMERULA R FILTRATION RATE [place] ([facility]) Note: Units are mL/min/1.73 m2 Chroni c Kidney Disease Staging per NKF: Stage I & II GFR >=60 Normal to Mildly Decreased Stage III GFR 30- 59 Moderately Decreased Stage IV GFR 15-29 Severely Decreased Stage V GFR <15 Very Little GFR Left ESRD GFR <15 on HAT CONDITIONER SODIUM LEVEL 135 MEQ/L Below low normal SODIUM LEVEL [facility] ([facility]) POTASSIUM SERUM 3.7 MEQ/L Normal POTASSIUM SERUM [facility]) CARBON DIOXIDE LEVEL 28 MEQ/L Normal CARBON DIOXIDE LEVEL [facility]) CHLORIDE LEVEL 101 MEQ/L Normal CHLORIDE LEVEL [facility]) CALCIUM LEVEL 8.8 MG/DL Normal CALCIUM LEVEL [facility]) Anion gap in Body fluid 6 MEQ/L Below low normal ANION GAP [facility]) ID Date Data Source [id number] 02/22/2021 05:52:00 AM EDT [place] ([facility]) Name Value Range Interpretation Code Description Data Che rce(s) Supporting Document(s) Reported Physicians See Note Reported Physici ans [facility]) Note: Reported Physicians:Ordering: DROZ HZHIN [id number], NATE DOAttending: DROZHZHIN, DMITRYAdmitting: DROZHZHIN, DMITRYCopy To: DROZHZHIN, DMITRYCopy To: Jadiel Osorio To: EDVIN ZELAYA ID Date Data Source [id number] 02/22/2021 05:52:00 AM EDT [place] ([facility]) Name Value Range Interpretation Code Description Data Che rce(s) Supporting Document(s) GLUCOSE, FASTING 92 MG/DL Normal GLUCOSE, FASTING GR [place] ([facility]) BLOOD UREA NITROGEN 9 MG/DL Normal BLOOD UREA NITRO GEN [place] ([facility]) CREATININE FOR GFR 0.45 MG/DL Below low normal CREATININE FOR GFR [place] ([facility]) GLOMERULAR FILTRATION RATE > 60.0 Normal GLOMERULA R FILTRATION RATE [place] ([facility]) Note: Units are mL/min/1.73 m2 Chroni c Kidney Disease Staging per NKF: Stage I & II GFR >=60 Normal to Mildly Decreased Stage III GFR 30- 59 Moderately Decreased Stage IV GFR 15-29 Severely Decreased Stage V GFR <15 Very Little GFR Left ESRD GFR <15 on HAT CONDITIONER SODIUM LEVEL 131 MEQ/L Below low normal SODIUM LEVEL [facility] ([facility]) POTASSIUM SERUM 3.3 MEQ/L POTASSIUM SERUM [facility]) CARBON DIOXIDE LEVEL 27 MEQ/L Normal CARBON DIOXIDE LEVEL [place] ([facility]) CHLORIDE LEVEL 98 MEQ/L Normal CHLORIDE LEVEL [facility]) CALCIUM LEVEL 8.5 MG/DL Below low normal CALCIUM LEVEL [facility] ([facility]) Anion gap in Body fluid 6 MEQ/L Below low normal ANION GAP [facility]) ALT/SGPT 15 U/L Normal ALT/SGPT [place] ([facility]) AST/SGOT 18 U/L Normal AST/SGOT [place] ([facility]) BILIRUBIN,TOTAL 1.0 MG/DL Normal BILIRUBIN,TOTAL [facility] ([facility]) Alkaline phosphatase [Enzymatic activity/volume] in Se rum, Plasma or Blood 63 U/L Normal ALKALINE PHOSPHATASE [place] ([facility]) Albumin [Mass/volume] in Blood by Bromocresol purple ( BCP) dye binding method 3.4 GM/DL Normal ALBUMIN [place] ([facility]) TOTAL PROTEIN 6.8 GM/DL Normal TOTAL PROTEIN [place] ([facility]) ALBUMIN/GLOBULIN RATIO 1.0 Below low normal ALBUMIN /GLOBULIN RATIO [place] ([facility]) ID Date Data Source [id number] 02/22/2021 05:52:00 AM EDT [facility]) Name Value Range Interpretation Code Description Data Che rce(s) Supporting Document(s) Reported Physicians See Note Reported Physic ans [place] ([facility]) Note: Reported Physicians:Ordering: DROZ HZHIN [id number], NATE DOAttending: DROZHZHIN, DMITRYAdmitting: DROZHZHIN, DMITRYCopy To: DROZHZHIN, DMITRYCopy To: Juan Pablo, JocelynCopy To: EDVIN ZELAYA ID Date Data Source [id number] 02/22/2021 05:52:00 AM EDT [place] ([facility]) Name Value Range Interpretation Code Description Data Che rce(s) Supporting Document(s) MAGNESIUM LEVEL 2.4 MG/DL Normal MAGNESIUM LEVEL [facility]) ID Date Data Source [id number] 02/22/2021 05:52:00 AM EDT [place] ([facility]) Name Value Range Interpretation Code Description Data Che rce(s) Supporting Document(s) Reported Physicians See Note Reported Physic ans [place] ([facility]) Note: Reported Physicians:Ordering: DROZ HZHIN [id number], NATE DOAttending: DROZHZHIN, DMITRYAdmitting: DROZHZHIN, DMITRYCopy To: DROZHZHIN, DMITRYCopy To: Juan Pablo, JocelynCopy To: EDVIN ZELAYA ID Date Data Source [id number] 02/22/2021 05:52:00 AM EDT [place] ([facility]) Name Value Range Interpretation Code Description Data Che rce(s) Supporting Document(s) WHITE BLOOD COUNT 4.8 3/uL Normal WHITE BLOOD COUNT [place] ([facility]) Hemoglobin [Mass/volume] in Mixed venous blood by Oximetry 13.0 g/d l Normal HEMOGLOBIN [facility]) RED BLOOD COUNT 4.09 6/uL Normal [facility] B[facility]) Hematocrit [Pure volume fraction] of Blood by Automated count 37.5 % Normal HEMATOCRIT [facility]) MEAN CORPUSCULAR HEMOGLOBIN 31.8 pg Normal MEAN COR PUSCULAR HEMOGLOBIN [facility]) MEAN CORPUSCULAR VOLUME 91.7 fl Normal MEAN CORPUSC ULAR VOLUME [facility]) MEAN CORPUSCULAR HGB CONC 34.7 g/dl Normal MEAN CORPU SCULAR HGB CONC [place] ([facility]) RED CELL DISTRIBUTION WIDTH 11.9 % Normal RED CELL DISTRIBUTION WIDTH [place] ([facility]) NUCLEATED RED BLOOD CELL % 0.0 % Normal NUCLEATED RED BLOOD CELL % [place] ([facility]) PLATELET COUNT, AUTOMATED 279 3/uL Normal PLATELET C OUNT, AUTOMATED [facility]) ID Date Data Source [id number] 02/21/2021 09:30:00 PM EDT [place] ([facility]) Name Value Range Interpretation Code Description Data Che rce(s) Supporting Document(s) Reported Physicians See Note Reported Physici ans [facility]) Note: Reported Physicians:Ordering: Remington ChavesaAttending: DROZHZHIN, DMITRYAdmitting: DROZHZHIN, DMITRYCopy To: DROZHZHIN, DMITRYCopy To: REMINGTON JOHNSONACopy To: Jadiel Osorio To: EDVIN ZELAYA ID Date Data Source [id number] 02/21/2021 09:30:00 PM EDT [place] ([facility]) Name Value Range Interpretation Code Description Data Che rce(s) Supporting Document(s) INFLUENZA A AMPLIFICATION NEGATIVE Normal INFLUENZA A AMPLIFICATION [facility]) Note: Negative results do not preclude i nfluenza or RSV virus infection and should not be used as the sole basis for treatment or other patient management decisions. INFLUENZA B AMPLIFICATION NEGATIVE Normal INFLUENZA B AMPLIFICATION [place] ([facility]) Note: Negative results do not preclude i nfluenza or RSV virus infection and should not be used as the sole basis for treatment or other patient management decisions. RSV AMPLIFICATION NEGATIVE Normal RSV AMPLIFICATION [place] ([facility]) Note: Negative results do not preclude i nfluenza or RSV virus infection and should not be used as the sole basis for treatment or other patient management decisions. SARS COVID-19 AMPLIFICATION NEGATIVE Normal SARS COV ID-19 AMPLIFICATION [place] ([facility]) Note: A false negative result may occur if a specimen is improperly collected, transported or handled. False negative results may also occur if inadequate numbers of organisms are present in the specimen. As with any molecular test, mutations within the target regions of Xpert Xpress SARS-CoV-2 could affect primer and/or probe binding resulting in failure to detect the presence of virus. This test cannot rule out diseases caused by other bacterial or viral pathogens. DISCLAIMER: Testing was performed using the [employer] SARS-CoV-2 test. This test was developed and its performance characteristics determined by [employer]. This test has not been FDA cleared or approved. This test has been authorized by FDA under an Emergency Use Authorization (EUA). This test is only authorized for the duration of time the declaration that circumstances exist justifying the authorization of the emergency use of in vitro diagnostic tests for detection of SARS-CoV-2 virus and/or diagnosis of COVID-19 infection under section 564(b)(1) of the Act, 21 U.S.C. 360bbb-3(b)(1), unless the authorization is terminated or revoked sooner. ID Date Data Source [id number] 02/21/2021 09:30:00 PM EDT [facility] Name Value Range Interpretation Code Description Data Che rce(s) Supporting Document(s) SARS coronavirus 2 RNA [Presence] in Res piratory specimen by REFUGIO with probe detection NEGATIVE [facility] This lab was ordered by [facility] a nd reported by [facility]. ID Date Data Source [id number] 02/21/2021 06:18:00 PM EDT [place] ([facility]) Name Value Range Interpretation Code Description Data Che rce(s) Supporting Document(s) Reported Physicians See Note Reported Physici ans [place] ([facility]) Note: Reported Physicians:Ordering: Elinor Chavesding: Gregor ZELAYA To: Gregor ZELAYA To: Patrick JOHNSON To: Vladislav Osorio ID Date Data Source [id number] 02/21/2021 06:18:00 PM EDT [place] ([facility]) Name Value Range Interpretation Code Description Data Che rce(s) Supporting Document(s) Alkaline phosphatase [Enzymatic activity/volume] in Se rum, Plasma or Blood 72 U/L Normal ALKALINE PHOSPHATASE [place] ([facility]) AST/SGOT 40 U/L Above high normal AST/SGOT [facility]) ALT/SGPT 21 U/L Normal ALT/SGPT [place] ([facility]) BILIRUBIN,DIRECT 0.1 MG/DL Normal [facility]IL[facility]IN,DIRECT [facility]) BILIRUBIN,TOTAL 1.0 MG/DL Normal BILIRUBIN,TOTAL GREE [facility] ([facility]) ALBUMIN/GLOBULIN RATIO 0.8 Below low normal ALBUMIN /GLOBULIN RATIO [place] ([facility]) TOTAL PROTEIN 8.2 GM/DL Normal TOTAL PROTEIN [place] ([facility]) Albumin [Mass/volume] in Blood by Bromocresol purple ( BCP) dye binding method 3.6 GM/DL Normal ALBUMIN [place] ([facility]) ID Date Data Source [id number] 02/21/2021 06:18:00 PM EDT [place] ([facility]) Name Value Range Interpretation Code Description Data Che rce(s) Supporting Document(s) Reported Physicians See Note Reported Physici ans [facility]) Note: Reported Physicians:Ordering: Elinor Chavesding: Gregor ZELAYA To: Gregor ZELAYA To: Patrick JOHNSON To: Vladislav Osorio ID Date Data Source [id number] 02/21/2021 06:18:00 PM EDT [place] ([facility]) Name Value Range Interpretation Code Description Data Che rce(s) Supporting Document(s) WHITE BLOOD COUNT 5.8 3/uL Normal WHITE BLOOD COUNT [place] ([facility]) RED BLOOD COUNT 4.48 6/uL Normal RED BLOOD COUNT G[facility] ([facility]) Hemoglobin [Mass/volume] in Mixed venous blood by Oximetry 14.3 g/d l Normal HEMOGLOBIN [facility]) Hematocrit [Pure volume fraction] of Blood by Automated count 41.0 % Normal HEMATOCRIT [place] ([facility]) MEAN CORPUSCULAR HEMOGLOBIN 31.9 pg Normal MEAN COR PUSCULAR HEMOGLOBIN [place] ([facility]) MEAN CORPUSCULAR VOLUME 91.5 fl Normal MEAN CORPUSC ULAR VOLUME [place] ([facility]) PLATELET COUNT, AUTOMATED 373 3/uL Normal PLATELET C OUNT, AUTOMATED [place] ([facility]) MEAN CORPUSCULAR HGB CONC 34.9 g/dl Normal MEAN CORPU SCULAR HGB CONC [place] ([facility]) RED CELL DISTRIBUTION WIDTH 11.9 % Normal RED CELL DISTRIBUTION WIDTH [place] ([facility]) LYMPH % 32.8 % Normal LYMPH % [place] ([facility]) NEUTROPHILS % 48.1 % Normal NEUTROPHILS % [place] ([facility]) EOS % 2.6 % Normal EOS % [place] ([facility]) MONO % 15.6 % Above high normal MONO % [place] ([facility]) IMMATURE GRANULOCYTE % 0.2 % Normal IMMATURE GRAN ULOCYTE % [place] ([facility]) BASO % 0.7 % Normal BASO % [place] ([facility]) LYMPH # 1.9 3/uL Normal LYMPH # [place] ([facility]) NEUTROPHILS # 2.8 3/uL Normal NEUTROPHILS # [place] ([facility]) NUCLEATED RED BLOOD CELL % 0.0 % Normal NUCLEATED RED BLOOD CELL % [place] ([facility]) MONO # 0.9 3/uL Above high normal MONO # [place] ([facility]) EOS # 0.2 3/uL Normal EOS # [place] ([facility]) BASO # 0.0 3/uL Normal BASO # [place] ([facility]) ID Date Data Source [id number] 02/21/2021 06:18:00 PM EDT [place] ([facility]) Name Value Range Interpretation Code Description Data Che rce(s) Supporting Document(s) Reported Physicians See Note Reported Physici ans [place] ([facility]) Note: Reported Physicians:Ordering: Elinor Chavesding: Gregor ZELAYA To: Gregor ZELAYA To: Patrick JOHNSON To: Vladislav Osorio ID Date Data Source [id number] 02/21/2021 06:18:00 PM EDT [place] ([facility]) Name Value Range Interpretation Code Description Data Che rce(s) Supporting Document(s) Erythrocyte sedimentation rate by [place] method 36 mm/hr Above high normal ERYTHROCYTE SEDIMENTATION RATE [facility]) ID Date Data Source [id number] 02/21/2021 06:18:00 PM EDT [place] ([facility]) Name Value Range Interpretation Code Description Data Che rce(s) Supporting Document(s) Reported Physicians See Note Reported Physici ans [place] ([facility]) Note: Reported Physicians:Ordering: Elinor Chavesding: Gregor ZELAYA To: Gregor ZELAYA To: Patrick JOHNSON To: Vladislav Osorio ID Date Data Source [id number] 02/21/2021 06:18:00 PM EDT [place] ([facility]) Name Value Range Interpretation Code Description Data Che rce(s) Supporting Document(s) GLUCOSE, FASTING 93 MG/DL Normal [facility], [facility]STING [facility] BLOOD UREA NITROGEN 9 MG/DL Normal BLOOD UREA NITRO GEN [facility]) GLOMERULAR FILTRATION RATE > 60.0 Normal GLOMERULA R FILTRATION RATE [place] ([facility]) Note: Units are mL/min/1.73 m2 Chroni c Kidney Disease Staging per NKF: Stage I & II GFR >=60 Normal to Mildly Decreased Stage III GFR 30- 59 Moderately Decreased Stage IV GFR 15-29 Severely Decreased Stage V GFR <15 Very Little GFR Left ESRD GFR <15 on HAT CONDITIONER CREATININE FOR GFR 0.63 MG/DL Normal CREATININE FOR GF R [place] ([facility]) SODIUM LEVEL 130 MEQ/L Below low normal SODIUM LEVEL [facility] ([facility]) POTASSIUM SERUM 4.4 MEQ/L Normal POTASSIUM SERUM [facility] ([facility]) Note: Testing was performed on a hemolys ed specimen. Suggest recollection of specimen for more accurate test results. CHLORIDE LEVEL 92 MEQ/L Below low normal CHLORIDE LEVEL [place] ([facility]) CARBON DIOXIDE LEVEL 27 MEQ/L Normal CARBON DIOXIDE LEVEL [place] ([facility]) Anion gap in Body fluid 11 MEQ/L Normal [facility] CALCIUM LEVEL 9.1 MG/DL Normal CALCIUM LEVEL [facility]) ID Date Data Source [id number] 02/16/2021 11:16:00 AM EDT [facility] ([facility], ) Name Value Range Interpretation Code Description Data Che rce(s) Supporting Document(s) PDFReport Laboratory test result [facility] ([facility]) FVC-Pred 2.49 L [facility] ([facility]) FVC-%Pred-Pre 78 L [facility] ([facility]) FVC-Pre 1.96 L [facility] ([facility]) Fev1-Pred 1.86 L [facility] ([facility]) FVC-LLN 1.84 L [facility] ([facility]) Fev1-Pre 1.58 L [facility] ([facility]) Fev1-%Pred-Pre 85 L [facility] ([facility]) Fev1-LLN 1.31 L [facility] ([facility]) Fev6-Pred 2.36 L [facility] ([facility]) Fev6-Pre 1.94 L [facility] ([facility]) Fev6-%Pred-Pre 82 L [facility] ([facility]) Fev6-LLN 1.72 L [facility] ([facility]) Gwg6snk-Txjj 74 % [facility] ([facility]) Mnn9fjg-Jtd 81 % [facility] ([facility]) Ejh8lkq-FCE 65 % [facility] ([facility]) Uij7rwc-%Pred-Pre 108 % [facility] ([facility]) Blq1kuw-Fyiz 95 % [facility] ([facility]) Mgv5rbp-Xuc 99 % [facility] ([facility]) Bjc9kuw-%Pred-Pre 104 % [facility] ([facility]) FEFMax-Pred 4.77 L/E/sec [facility] ([facility]) FEFMax-Pre 3.51 L/E/sec [facility] ([facility]) FEFMax-%Pred-Pre 73 L/E/sec [facility] ([facility]) Iic2928-Wuag 1.45 L/E/sec [facility] ([facility]) FEFMax-LLN 3.16 L/E/sec [facility] ([facility]) Bso4185-Jdj 1.72 L/E/sec [facility] ([facility]) Ovb3678-%Pred-Pre 119 L/E/sec [facility] ([facility]) Lrw8418-AZR 0.28 L/E/sec [facility] ([facility]) ExpTime-Pre 8.01 sec [facility] ([facility]) Dye5oez0-Qfgt 78 % [facility] ([facility]) Bmw9vyx5-Szr 81 % [facility] ([facility]) Lzb8wqa0-%Pred-Pre 104 % [facility] ([facility]) Gkp6hty2-SWP 69 % [facility] ([facility]) ID Date Data Source [id number] 02/13/2021 09:42:00 AM EDT [facility] ([facility]) Name Value Range Interpretation Code Description Data Che rce(s) Supporting Document(s) Surgical pathology study Laboratory test result [facility] ([facility]) <content>FINAL DIAGNOSIS</content>
< content></content>
<content>A, B &C-- Nasopharyngeal mass, biopsy:</content>
<content>Diffuse large B-cell lymphoma, activated B-cell type.</content>
<content>Flow cytometry: Clonal population of B cells negative for CD5 and CD10,</content>
<content>consistent with B-cell lymphoma. A smaller distinct population of</content>
<content>B-cells positive for CD5, negative for CD23 is also present, but there</content>
<content>is no evidence of CD5 positive B-cells lymphoma on corresponding tissue</content>
<content>sections.</ content>
<content>FISH is positive for deletion 17p and negative for lmldmik50, del 11q22,</content>
<content>del13q and t (11; 14). Deletion 17p is associated with an unfavorable</content>
<content>prognosis. The diagnosis of diffuse large B-cell lymphoma remains</content>
<content>unchanged.</content>
<content></content>
<content>Comment: MYC immunostain is variable but is overall positive on less</content>
<content>than 40% of cells, so even if the bcl-2 stain is positive, these</content>
<content>findings are not consistent with "double expressor" diffuse large B-cell</content>
<content>lymphoma.</content>
<content></content>
<c ontent>See [facility] [id number], [id number], [id number] 833</content>
<content>02/28/2021 - 09</content>
<content></content>
<content>CLINICAL DIAGNOSIS</content>
<content></content>
<content>Nasopharyngeal mass, right otitis media</content>
<content>02/13/2021 - 1459</content>
<content></content>
<content>GROSS DIAGNOSIS</content>
<content></content>
<content>A - Received fresh labeled "nasopharyngeal mass" and consists of</content>
<content>fragments of tissue, 1 x 1 x 0.5 cm in aggregate. All is submitted for</content>
<content>frozen section. Frozen section diagnosis; atypical lymphocytes,final</content>
<content>diagnosis defer to permanent. Frozen section diagnosis was read by </content>
<content>Leanna and communicated to Dr. Hernandez. The specimen was received at</content>
<content>9:47 a.m. and reported at 9:57 a.m. The remainder of the frozen section</content>
<content>is submitted in two.</content>
<content></content>
<content>B - Received fresh labeled "nasopharyngeal mass for lymphoma protocol"</content>
<content>and was all submitted for flow cytometry.</content>
<content></content>
<content>C - Received in formalin labeled "nasopharyngeal mass" and consists of a</content>
<content>fragment of tissue, 1 x 1 x 0.5 cm in aggregate. All in one.</content>
<content>-OA</content>
<content>02/22/2021 - 822</content>
<content></content>
<content>PRELIMINARY DIAGNOSIS</content>
<content></content>
<content>02/22/2021 - 822</content>
<content></content>
<content>Signed VERNON LOPEZ MD 02/14/2021 0926 (Prelim)</content>
<content>Signed VERNON LOPEZ MD 02/28/2021 0955</content>
<content></content> ID Date Data Source [id number] 02/16/2021 11:26:[address] [facility] Hematopathology Report See Addendum Trevor wName: BEATRIZ CASTANEDAMRN: [id number] Number: [id number] Date: 02/13/2021 09:42Received Date: 02/13/2021 16:29Physician(s): VERNON LOPEZ MD ADJAPONG, OPOKU,MDCopy To:[facility]OSPITALpecimen(s) ReceivedA: Nasopharyngeal Mass, Flow Cytometry; RECEIVED NASOPHARYNGEAL MASS INRPMIClinical HistoryNasopharyngeal mass.TEST REQUESTED/PERFORMED: Flow cytometry analysis DiagnosisFlow cytometry of nasopharyngeal mass biopsy: Clonal population of B cellsnegative for CD5 and CD10, consistent with B-cell lymphoma. A smallerdistinct population of B cells positive for CD5, negative for CD23 is alsopresent, but there is no evidence of CD5 positive B-cell lymphoma oncorresponding tissue sections. FISH for CLL associated changes andt(11;14) is pending. Refer to corresponding tissue consult case([id number]) for final diagnosis.Alpesh Lozano M.D.;Resident PathologistElectronically Signed By CRISTY LAGUNAS M.D. Attending Pathologist 111:26:18The attending pathologist named above attests that he/she has personallyreviewed the relevant preparation(s) for the specimen(s) and rendered thefinal diagnosis. Addendum 02/23/2021 FISH is positive for deletion 17p and negative for trisomy 12, del 11q22,del 13q and t(11;14). Deletion 17p is associated with an unfavorableprognosis. The diagnosis of Diffuse large B-cell lymphoma (See [id number])remains unchanged. Addendum Electronically Signed By: Linda Cobb M.D. 02/23/2021 11:03 ProceduresFlow Cytometry Date Ordered:02/13/2021 Status: Signed Out02/14/2021 InterpretationA cytospin and touch imprint show scattered large lymphoid cells withirregular nuclei, condensed chromatin and prominent 1-2 macronucleoli. Thebackground consists of small lymphocytes, degenerating cells and rarescattered neutrophils and histiocytes.Lymphoid Panel: Tonya Henderson [id number] following markers were assayed: CD45 (gate), CD2, CD3, CD4, CD5, CD7,CD8, CD10, CD11c, CD19, CD20, CD22, CD23, CD25, CD38, CD56, CD57, CD103,[place], Lambda, and FMC7.#events: 5690 NOTE: Routinely a minimum of 50,000 events are collected ineach panel tube. Due to sample cellularity and/or processing this numberwas not achievable for this sample.Viability: 66%NOTE: Results are based on a sample that was partially compromised due tothe presence of greater than 20% non-viable leukocytes.Flow Cytometry Differential (CD45/SSC)Lymphocyte [place]: 82%CD45 dim [place]: 0%Monocyte [place]: 1%Granulocyte [place]: 6%Nucleated/Erythroid [place]: 5%The lymphocyte gate showsB-cells (CD19): 71%[place]/Lambda Ratio: 2863.7T-cells (CD3): 18%NK-cells (CD3-/CD56+): 2%CD4/CD8 Ratio: 1.0Results: (expressed as % of lymphocyte gate)T-cell Markers: CD2 = 19, CD3 = 18, CD3/CD4 = 9, CD3/CD8 = 8, CD5 = 19,CD7 = 20, CD3/57 = 4B-cell markers: [place] = 92, Lambda = 0, CD19 = 80, CD20 = 83, CD19/10 = 3,CD19/CD5 = 13, CD38/CD20 = 6, CD22 = 62, CD19/CD23 = 1, FMC7 = 30Light chain as % of B-Cells: CD19/[place] = 98, CD19/Lambda = 7CD19/CD5/[place] = 5, CD19/CD5/Lambda = 1CD19/CD10/[place] = 1, CD19/CD10/Lambda = 1CD38 on CD19/5 positive cells: 88%NK cell Markers: CD56 = 3, CD57 = 5Other Markers: CD25 = 83, CD103 = 2, CD11c = 76, CD103/CD11c = 2, CD103/25= 1, CD103/22 = 1 CD10 = 3, CD38 = 16Results: (expressed as % of CD45 dim gate)T-cell Markers: CD2 = 0, CD3 = 3, CD3/CD4 = 0, CD3/CD8 = 0, CD5 = 0, CD7 =3, CD3/57 = 3B-cell markers: [place] = 0, Lambda = 0, CD19 = 0, CD20 = 3, CD19/10 = 0,CD19/CD5 = 0, CD38/CD20 = 3, CD22 = 0, CD19/CD23 = 0, FMC7 = 3Light chain as % of B-Cells: CD19/[place] = 0, CD19/Lambda = 0CD19/CD5/[place] = 0, CD19/CD5/Lambda = 0CD19/CD10/[place] = 0, CD19/CD10/Lambda = 0NK cell Markers: CD56 = 6, CD57 = 3Other Markers: CD10 = 0, CD38 = 69, CD25 = 0, CD103 = 3, CD11c = 21,CD103/CD11c = 3, CD103/25 = 0, CD103/22 = 0Results-CommentsLymphocytes consist of 80% kappa restricted B cells expressing CD19, CD20,partial FMC7, CD25, CD11c, and CD22. These cells do not express CD10,CD38, CD5, CD23, or CD103. A small subclone (18% of lymphocytes) ofkappa- restricted B cells express CD19, CD5, and CD38. These cells do notexpress CD23. The remaining cells are T cells with normal expression ofpan T-cell markers and a normal CD4/CD8 ratio, normal proportions of NKand cytotoxic T cells, and polyclonal B cells.Procedure Electronically Signed By:CRISTY LAGUNAS M.D.02/15/2021 This report may include one or more immunohistochemical stain/fluorochromeconjug ated monoclonal antibody results that use analyte specific reagents.All positive and negative controls have been reviewed by the attendingpathologist and are satisfactory. The tests were developed and theirperformance characteristics determined by [facility] Pathology department.They have not been cleared or approved by the US Food and DrugAdministration. The FDA has determined that such clearance or approval isnot necessary. Name Value Range Interpretation Code Description Data Che rce(s) Supporting Document(s) ID Date Data Source [id number] 02/16/2021 04:29:[address] [facility] Hematopathology Report See Addendum Trevor Cuellar: BEATRIZ CASTANEDAMRN: [id number] Number: [id number] Date: 02/13/2021 00:00Received Date: 02/14/2021 14:26Physician(s): VERNON LOPEZ MD ADJAPONG, OPOKU,[facility] [place] To:[facility]OSPITALpecimen(s) ReceivedA: Slides received for consultation, SB; RECEIVED 3 SLIDES AND 3 BLOCKSLABELED [id number] A1 AND B2 AND C3 OF NASOPHARYNGEAL MASS COLLECTED ON02/13/2021 FROM [facility] IN CONSULTATION WITH DR LOPEZClinical HistoryRule out lymphoma.TEST REQUESTED/PERFORMED: Hematopathology Consultation DiagnosisNasopharyngeal mass, biopsy: Diffuse large B-cell lymphoma, activatedB-cell type. FISH for bcl-2, bcl-6 and myc gene rearrangements are pendingfor final diagnosis.Comment: Myc immunostain is variable but is overall positive on less than40% of cells, so even if the bcl-2 stain is positive, these findings arenot consistent with "double expressor" diffuse large B-cell lymphoma. Alpesh Lozano M.D.;Resident PathologistElectronically Signed By CRISTY LAGUNAS M.D. Attending Pathologist 116:29:03The attending pathologist named above attests that he/she has personallyreviewed the relevant preparation(s) for the specimen(s) and rendered thefinal diagnosis. Addendum 03/01/2021 [place] LOS and lambda LOS show polyclonal staining pattern on plasma cells.The diagnosis remains unchanged. Addendum Electronically Signed By: CRISTY LAGUNAS M.D. 03/01/2021 16:07 Addendum 03/01/2021 The [facility] report [id number] shows the following results:TEST PANEL BY FISH (fluorescence in situ hybridization): 1. MYC gene (8q24) break-apart rearrangement. 2. IGH-BCL2 [t(14;18)(q32;q21)] gene fusion rearrangement. 3. BCL6 gene (3q27) break- apart rearrangement. RESULTS: 1. Percent cells with MYC gene break-apart rearrangement is 16%. 2. Ratio of IGH-BCL2 gene fusion rearrangement is 0.03 3. Percent cells with BCL6 gene break-apart rearrangement is 14%. ISCN - nuc los (5'MYC,3'MYC)x1~4(5'MYC sep 3'MYC x1~4)[16/100],(IGH,BCL2)x1~4[40], (5'BCL6,3'BCL6)x1~4(5'BCL6 sep 3'BCL6x1~4)[/100] INTERPRETATION: POSITIVE FOR MYC AND BCL6 GENE REARRANGEMENTS. 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 Addendum Electronically Signed By: CRISTY LAGUNAS M.D. 03/01/2021 10:39 Microscopic DescriptionH+E sections show multiple pieces of lymphoid tissue with diffuseinfiltrate, composed of sheets of medium to large sized cells withvesicular nuclear chromatin, oval to slightly irregular nuclei, prominentnucleoli, and moderate amount of cytoplasm. Apoptotic bodies are noted.Also present are areas where there are more small mature lymphocytes an dsome scattered large cells and plasma cells. Area of ulceration is alsonoted. Immunostains performed on block A2 show lymphocytes diffusely positive forB cell marker CD20 with some scattered T cells positive for CD3 and CD5.Cyclin D1 is negative. CD10 and bcl-6 are negative as well. MUM-1 stain ispositive. Bcl-2 stain is positive, but myc stain shows less than 40% ofthe cells positive. Ki-67 is positive on ~80-90% of the cells. [id number] few positive plasma cells, [place] and Lambda are pending and will bereported as an addendum.Stains performed at [facility]: CD20, CD3, CD10, bcl-6,mum-1, bcl-2, CD5, cyclin-D1, myc, Ki-67, CD138, [place] LOS, Lambda LOS. ProceduresThis report may include one or more immunohistochemical stain/fluorochromeconjugated monoclonal antibody results that use analyte specific reagents.All positive and negative controls have been reviewed by the attendingpathologist and are satisfactory. The tests were developed and theirperformance characteristics determined by [facility] Pathology department.They have not been cleared or approved by the US Food and DrugAdministration. The FDA has determined that such clearance or approval isnot necessary. Name Value Range Interpretation Code Description Data Che rce(s) Supporting Document(s) ID Date Data Source [id number] 02/28/2021 09:53:[address] [facility] Anatomic Molecular Pathology ReportName: BEATRIZ CASTANEDAMRN: [id number] Number: [id number] Date: 02/13/2021 00:00Received Date: 02/17/2021 10:07Physician(s): VERNON LOPEZ MD ADJAPONG, OPOKU,[facility] [place]opy To:[facility]OSPITALpecimen(s) ReceivedA: Slides rec'd for consultation, Formalin Block [id number] ([id number] Crec'd from [facility] in [place], [place], Diffuse Lg. B-CellLymphomaDiagnosisTEST PANEL BY FISH (fluorescence in situ hybridization): 1. MYC gene (8q24) break-apart rearrangement. 2. IGH- BCL2 [t(14;18)(q32;q21)] gene fusion rearrangement. 3. BCL6 gene (3q27) break-apart rearrangement. RESULTS: 1. Percent cells with MYC gene break- apart rearrangement is 16%. 2. Ratio of IGH-BCL2 gene fusion rearrangement is 0.03 3. Percent cells with BCL6 gene break-apart rearrangement is 14%. ISCN - nuc los (5'MYC,3'MYC)x1~4(5'MYC sep 3'MYC x1~4)[16/100],(IGH,BCL2)x1~4[40], (5'BCL6,3'BCL6)x1~4(5'BCL6 sep 3'BCL6x1~4)[7/100] INTERPRETATION: POSITIVE FOR MYC AND BCL6 GENE REARRANGEMENTS. NEGATIVE FOR IGH-BCL2 GENE REARRANGEMENT.10% is used as cut-off value for MYC and BCL6 gene rearrangements while0.1 is for IGH-BCL2. d 10% or d0.1 is positive while c 10% or < 0.1 isnegative. MYC gene rearrangement, including "double-hit" MYC and BCL2/VYX3gdtxbkbmsxjmvw, can be identified in approximately 10% of diffuse largeB-cell lymphoma, and is associated with aggressive clinical behavior andpoor therapeutic response.kg/jajElectronically Signed By Raleigh Shukla M.D. Attending Pathologist 02/28/2021 09:53:28Reported at [address] [place] [id number]. Gross DescriptionMETHODOLOGY:Interphase FISH is performed on paraffin embedded lymphoma tissueutilizing dual color break-apart probes for MYC and BCL6, and dual colordual fusion probes for IGH-BCL2, analyte specific reagents of [employer]. Hybridizations are carried out as per the stated protocolwith no significant background or random probe hybridization. A total of40 -100 interphase tumor nuclei are examined by one or two scorers,depending on initial evaluation. Less than 10% tumor cells in samples maynot be detected by the assay. Test development and their performance characteristics were determined bythe [facility], and have beenauthorized for clinical use by [facility]. Thetests have not been cleared or approved by the U.S. Food and DrugAdministration. The analyte specific reagents used in this assay do notrequire FDA approval. REFERENCES: 1. Walter N, Fanta Quinn, Alejandra Layne, et al. Prognostic significance of MYC,BCL2, and BCL6 rearrangements in patients with diffuse large B-celllymphoma treated with cyclophosphamide, doxorubicin, vincristine, andprednisone plus rituximab. Cancer 2012;118:7039-0766.2. Cosme Y, Henrik M, Shannon Aguayo, et al. Double hit lymphoma: the [facility] clinical experience. [place] Journal of Dmxrywwdoqi2588;166:096967.3. Satish Quinn, Margie SCHOFIELD, Phil Roberts, et al. Rearrangements of MYC genefacilitate risk stratification in diffuse large B-cell lymphoma patientstreated with rituximab- [facility]. Modern Pathology 2014;27:347506.This report may include one or more im munohistochemical stain results thatuse analyte specific reagents. All positive and negative controls havebeen reviewed by the attending pathologist and are satisfactory. The testswere developed and their performance characteristics determined by [facility] Pathology department. They have not been cleared or approved by the USFood and Drug Administration. The FDA has determined that such clearanceor approval is not necessary. Name Value Range Interpretation Code Description Data Che rce(s) Supporting Document(s) ID Date Data Source [id number] 02/22/2021 03:22:[address] [facility] Cytogenetics ReportName: BEATRIZ CASTANEDAMRN: [id number] Number: [id number] Date: 02/13/2021 00:00Received Date: 02/16/2021 12:02Physician(s): ADJAPONGVERNON MD ADJAPONG, OPOKU, MDSpecimen(s) ReceivedA: Tissue - Oncology slides - FISH onlyClinical HistoryNasopharyngeal massTEST REQUESTED/PERFORMED: Fluorescence in situ hybridization - FISH DiagnosisFISH studies showed 78% of nuclei with deletion of 17p. FISH studies werenegative for trisomy 12; deletions of 11q22 (ANGELICA) and 13q14.2(M20P233);and negative for the CCND1-IgH [t(11;14)] rearrangement.Deletion of 17p (hemizygosity for TP53) is associated with a dismaloutcome in CLL and an unfavorable prognosis in other LPDs. Correlationwith the concurrent Hematopathology report ([id number]) and otherlaboratory data is suggested. Electronically Signed By Blayne Park, Ph.D., [facility] 02/22/2021 15:22:27Gross DescriptionFluorescence in situ Hybridization (FISH)CLL FISH:nuc los(D11Z1,ANGELICA)x2[98/100],(J16M8t5)[96/100],(Z39Z739,13q34)x2[99/100],(T P53x1,B01T7n2)[78/100]CCND1-IgH [t(11;14)]:nuc los (CCND1,IgH)x2[97/100]DescriptionFISH studies showed 78% of nuclei with deletion of 17p. FISH studies werenegative for trisomy 12; deletions of 11q22 (ANGELICA) and 13q14.2(O74A108);and was negative for the CCND1-IgH [t(11;14)] rearrangement. Test DataSpecimen Processed: Cytospin and touch prep slidesFluorescence in situHybridization (FISH): Probe Normal Cut-off Nuclei Analyzed FISH SIGNAL PATTERNS Normal Abnormal NKCS CEP 11 (D11Z1) SG LSI ANGELICA (11q22) SO 3% 100 2O2% 0% 2% CEP 12 (D12Z1) SO 3%100 2O: 96% 0% 4% *LSI Z07W723 (13q14.2) O LSI 13q34 G 3% 100 2O2% 0% 1% *LSI TP53 (17p13.1) O CEP 17 (D17Z1) G 3% 100 2O2% 1O2% 2% *LSI CCND1(11q13) R IgH (14q32.3) G DCDF 3% 100 2R2% 0% 3% Vendor: [employer] or *[employer] Probes: LSI: Locus Specific Probe; CEP: Centromeric Probe; DCDF: DualColor Dual Fusion; Fluorochromes/ Signals: SG - Spectrum Green; SO -Spectrum Cole; O orange; R Red; Y - yellow (fusion) NKCS: Signals with No Known Clinical SignificanceDisclaimer: Conventional chromosome analysis may not detect submicroscopicstructural chromosome abnormalities as well as aberrations present at lowpercentages. The FISH test was developed and its performance was validatedby the Cytogenetics section of the Department of Clinical Pathology. Thistest has not been cleared or approved by the U. S. Food and DrugAdministration (FDA). The FDA has determined that such approval is notnecessary. However, the procedure is considered investigational, andshould not be used as the sole criteria for diagnosis. Name Value Range Interpretation Code Description Data Che rce(s) Supporting Document(s) ID Date Data Source [id number] 02/10/2021 12:05:00 PM [facility] [place] ([facility]) Name Value Range Interpretation Code Description Data Che rce(s) Supporting Document(s) Reported Physicians See Note Reported Physici [facility] ([facility]) Note: Reported Physicians:Ordering: Jen Ayala [phone]: Kaylee Wing To: Kaylee Wing To: Vladislav Osorio ID Date Data Source [id number] 02/10/2021 12:05:00 PM EDT [place] ([facility]) Name Value Range Interpretation Code Description Data Che rce(s) Supporting Document(s) GLUCOSE, FASTING 109 MG/DL Above high normal GLUCOSE, FAS TING [place] ([facility]) BLOOD UREA NITROGEN 13 MG/DL Normal BLOOD UREA NITRO GEN [place] ([facility]) CREATININE FOR GFR 0.53 MG/DL Below low normal CREATININE FOR GFR [place] ([facility]) GLOMERULAR FILTRATION RATE > 60.0 Normal GLOMERULA R FILTRATION RATE [place] ([facility]) Note: Units are mL/min/1.73 m2 Chroni c Kidney Disease Staging per NKF: Stage I & II GFR >=60 Normal to Mildly Decreased Stage III GFR 30- 59 Moderately Decreased Stage IV GFR 15-29 Severely Decreased Stage V GFR <15 Very Little GFR Left ESRD GFR <15 on HAT CONDITIONER SODIUM LEVEL 132 MEQ/L Below low normal SODIUM LEVEL [facility] ([facility]) POTASSIUM SERUM 3.6 MEQ/L Normal POTASSIUM SERUM [facility]) CHLORIDE LEVEL 98 MEQ/L Normal CHLORIDE LEVEL [facility]) CARBON DIOXIDE LEVEL 29 MEQ/L Normal CARBON DIOXIDE LEVEL [facility]) Anion gap in Body fluid 5 MEQ/L Below low normal ANION GAP [facility]) CALCIUM LEVEL 8.8 MG/DL Normal CALCIUM LEVEL [facility]) ID Date Data Source [id number] 02/10/2021 12:05:00 PM EDT [place] ([facility]) Name Value Range Interpretation Code Description Data Che rce(s) Supporting Document(s) Reported Physicians See Note Reported Physici ans [place] ([facility]) Note: Reported Physicians:Ordering: Jen Ayala [phone] MDAttending: Kaylee Wing To: Kaylee Wing To: Vladislav Osorio ID Date Data Source [id number] 02/10/2021 12:05:00 PM EDT [place] ([facility]) Name Value Range Interpretation Code Description Data Che rce(s) Supporting Document(s) C REACTIVE PROTEIN QUANTITATIV < 0.30 MG/DL Normal C REACTIVE PROTEIN QUANTITATIV [place] ([facility]) ID Date Data Source [id number] 02/10/2021 12:05:00 PM EDT [place] ([facility]) Name Value Range Interpretation Code Description Data Che rce(s) Supporting Document(s) Reported Physicians See Note Reported Physici ans [place] ([facility]) Note: Reported Physicians:Ordering: Jen Ayala [phone] MDAttending: Jose G Wingpy To: Maciej MajaCopy To: Vladislav Osorio ID Date Data Source [id number] 02/10/2021 12:05:00 PM EDT [place] ([facility]) Name Value Range Interpretation Code Description Data Che rce(s) Supporting Document(s) MAGNESIUM LEVEL 2.2 MG/DL Normal MAGNESIUM LEVEL [facility] ([facility]) ID Date Data Source [id number] 02/10/2021 12:05:00 PM EDT [place] ([facility]) Name Value Range Interpretation Code Description Data Che rce(s) Supporting Document(s) Reported Physicians See Note [facility] Note: Reported Physicians:Ordering: Jen Ayala [phone], Maja MDAttending: Maciej MajaCopy To: Maciej MajaCopy To: Vladislav Osorio ID Date Data Source [id number] 02/10/2021 12:05:00 PM EDT [place] ([facility]) Name Value Range Interpretation Code Description Data Che rce(s) Supporting Document(s) AST/SGOT 17 U/L Normal AST/SGOT [place] ([facility]) ALT/SGPT 20 U/L Normal ALT/SGPT [place] ([facility]) Alkaline phosphatase [Enzymatic activity/volume] in Se rum, Plasma or Blood 67 U/L Normal ALKALINE PHOSPHATASE [place] ([facility]) BILIRUBIN,TOTAL 1.0 MG/DL Normal BILIRUBIN,TOTAL GREE [facility] ([facility]) Albumin [Mass/volume] in Blood by Bromocresol purple ( BCP) dye binding method 3.8 GM/DL Normal ALBUMIN [facility]) BILIRUBIN,DIRECT 0.2 MG/DL Normal BILIRUBIN,DIRECT [facility] TOTAL PROTEIN 7.5 GM/DL Normal TOTAL PROTEIN [facility]) ALBUMIN/GLOBULIN RATIO 1.0 Below low normal ALBUMIN /GLOBULIN RATIO [facility]) ID Date Data Source [id number] 02/10/2021 12:05:00 PM EDT [facility]) Name Value Range Interpretation Code Description Data Che rce(s) Supporting Document(s) Reported Physicians See Note Reported Physici ans [facility]) Note: Reported Physicians:Ordering: Jen Ayala [phone]: Kaylee Wing To: Kaylee Wing To: Vladislav Osorio ID Date Data Source [id number] 02/10/2021 12:05:00 PM EDT [place] ([facility]) Name Value Range Interpretation Code Description Data Che rce(s) Supporting Document(s) WHITE BLOOD COUNT 4.8 3/uL Normal WHITE BLOOD COUNT [facility]) Hemoglobin [Mass/volume] in Mixed venous blood by Oximetry 13.5 g/d l Normal HEMOGLOBIN [facility]) RED BLOOD COUNT 4.23 6/uL Normal RED BLOOD COUNT [facility] MEAN CORPUSCULAR VOLUME 92.7 fl Normal MEAN CORPUSC ULAR VOLUME [facility]) Hematocrit [Pure volume fraction] of Blood by Automated count 39.2 % Normal HEMATOCRIT [facility]) MEAN CORPUSCULAR HEMOGLOBIN 31.9 pg Normal MEAN COR PUSCULAR HEMOGLOBIN [facility]) MEAN CORPUSCULAR HGB CONC 34.4 g/dl Normal MEAN CORPU SCULAR HGB CONC [facility]) RED CELL DISTRIBUTION WIDTH 11.9 % Normal RED CELL DISTRIBUTION WIDTH [facility]) NEUTROPHILS % 55.9 % Normal NEUTROPHILS % [facility]) PLATELET COUNT, AUTOMATED 290 3/uL Normal PLATELET C OUNT, AUTOMATED [place] ([facility]) LYMPH % 32.5 % Normal LYMPH % [place] ([facility]) EOS % 1.0 % Normal EOS % [place] ([facility]) MONO % 9.8 % Above high normal MONO % [place] ([facility]) IMMATURE GRANULOCYTE % 0.2 % Normal IMMATURE GRAN ULOCYTE % [place] ([facility]) BASO % 0.6 % Normal BASO % [place] ([facility]) NUCLEATED RED BLOOD CELL % 0.0 % Normal NUCLEATED RED BLOOD CELL % [place] ([facility]) NEUTROPHILS # 2.7 3/uL Normal NEUTROPHILS # [place] ([facility]) MONO # 0.5 3/uL Normal MONO # [place] ([facility]) LYMPH # 1.6 3/uL Normal LYMPH # [place] ([facility]) EOS # 0.1 3/uL Normal EOS # [place] ([facility]) BASO # 0.0 3/uL Normal BASO # [place] ([facility]) ID Date Data Source [id number] 02/10/2021 12:05:00 PM EDT [place] ([facility]) Name Value Range Interpretation Code Description Data Che rce(s) Supporting Document(s) Reported Physicians See Note Reported Physici ans [place] ([facility]) Note: Reported Physicians:Ordering: Jen Ayala [phone] MDAttending: Kaylee Wing To: Kaylee Wing To: Vladislav Osorio ID Date Data Source [id number] 02/10/2021 12:05:00 PM EDT [place] ([facility]) Name Value Range Interpretation Code Description Data Che rce(s) Supporting Document(s) Erythrocyte sedimentation rate by [place] method 35 mm/hr Above high normal ERYTHROCYTE SEDIMENTATION RATE [facility]) ID Date Data Source [id number] 02/08/2021 12:05:00 PM EDT [facility] Name Value Range Interpretation Code Description Data Che rce(s) Supporting Document(s) SARS-CoV-2 (COVID-19) RNA [Presence] in Respiratory specimen by REFUGIO with probe detection Not Detected [facility] This lab was ordered by [facility] and reported by [employer]. ID Date Data Source [id number] 02/02/2021 07:06:00 AM EDT [place] ([facility]) Name Value Range Interpretation Code Description Data Che rce(s) Supporting Document(s) Reported Physicians See Note Reported Physic ans [place] ([facility]) Note: Reported Physicians:Ordering: MIRIAM LOPEZ MDAttending: MIRIAM MONTAÑOConsulting: FATIMAH OSORIOCELYNCopy To: Estefani MontañoianCopy To: Juan Pablo Vladislav ID Date Data Source [id number] 02/02/2021 07:06:00 AM EDT [place] ([facility]) Name Value Range Interpretation Code Description Data Che rce(s) Supporting Document(s) BUN 11 MG/DL BUN [place] ([facility]) Note: Responsible Observer: (TAD) ID Date Data Source [id number] 02/02/2021 07:06:00 AM EDT [place] ([facility]) Name Value Range Interpretation Code Description Data Che rce(s) Supporting Document(s) Reported Physicians See Note [facility] Note: Reported Physicians:Ordering: MIRIAM LOPEZ MDAttending: MIRIAM MONTAÑOConsulting: JUAN PABLO JOCELYNCopy To: Estefani MontañoianCopy To: Juan Pablo, Vladislav ID Date Data Source [id number] 02/02/2021 07:06:00 AM EDT [place] ([facility]) Name Value Range Interpretation Code Description Data Che rce(s) Supporting Document(s) AFR AMER GFR >60 AFR AMER GFR [place] ([facility]) Note: Male GFR Inter prentation 20-49 yrs >60 mL/min Normal 50-59 yrs >56 mL/min Normal 60-69 yrs >49 mL/min Normal 70-79yrs >42 mL/min Normal 80 and above >35 mL/min Normal Female GFR Interpretation 20-39 yrs >60 mL/min Normal 40-49 yrs >58 mL/min Normal 50-59 yrs >51 mL/min Normal 60-69 yrs >45 mL/min Normal 70-79 yrs >39 mL/min Normal 80 and above >32 mL/min NormalResponsible Observer: (KIMBERLY) Egg donor age 75 yrs AGE [place] ([facility]) Note: Responsible Observer: (TAD) Creatinine [Moles/volume] in Vitreous fluid 0.5 MG/DL Below low normal CREATININE [facility]) Note: Responsible Observer: (TAD) NON-AA GFR >60 mL/min NON-AA GFR [facility]) Note: Responsible Observer: (TAD) ID Date Data Source [id number] 02/02/2021 07:06:00 AM EDT [facility] ([facility]) Name Value Range Interpretation Code Description Data Che rce(s) Supporting Document(s) Creatinine 0.5 mg/dL 0.7-1.5 Below low normal [facility] ( [facility]) Non-Aa GFR Laboratory test result [facility] ([facility]) Age 75 yrs [facility] ([facility]) Afr Amer GFR Laboratory test result [facility] ([facility]) Male GFR Interprentation 20-49 yrs >60 mL/min Normal 50-59 yrs >56 mL/min Normal 60-69 yrs >49 mL/min Normal 70-79yrs >42 mL/min Normal 80 and above >35 mL/min Normal Female GFR Interpretation 20-39 yrs >60 mL/min Normal 40-49 yrs >58 mL/min Normal 50-59 yrs >51 mL/min Normal 60-69 yrs >45 mL/min Normal 70-79 yrs >39 mL/min Normal 80 and above >32 mL/min Normal ID Date Data Source [id number] 02/02/2021 07:06:00 AM EDT [facility] ([facility]) Name Value Range Interpretation Code Description Data Che rce(s) Supporting Document(s) Urea nitrogen [Mass/volume] in Serum or Plasma 11 mg/dL 7-21 [facility], ) ID Date Data Source [id number] 02/02/2021 09:08:00 AM EDT [facility] Name Value Range Interpretation Code Description Data Che rce(s) Supporting Document(s) Creatinine [Mass/volume] in Serum or Plasma 0.5 MG/DL 0.7 - 1.5 L [facility] AGE 75 yrs [facility] NON-AA GFR >60 mL/min [facility] AFR AMER GFR >60 [facility] Male GFR Interprenta tion 20-49 yrs >60 mL/min Normal 50-59 yrs >56 mL/min Normal 60-69 yrs >49 mL/min Normal 70-79yrs >42 mL/min Normal 80 and above >35 mL/min Normal Female GFR Interpretation 20-39 yrs >60 mL/min Normal 40-49 yrs >58 mL/min Normal 50-59 yrs >51 mL/min Normal 60-69 yrs >45 mL/min Normal 70-79 yrs >39 mL/min Normal 80 and above >32 mL/min Normal ID Date Data Source [id number] 02/02/2021 09:08:00 AM EDT [facility] Name Value Range Interpretation Code Description Data Che rce(s) Supporting Document(s) BUN 11 MG/DL [facility] ID Date Data Source [id number] 08/05/2020 10:23:00 AM EST [facility] ([facility] Name Value Range Interpretation Code Description Data Che rce(s) Supporting Document(s) Carotid Ultrasound Bilateral Laboratory test result [facility]) ID Date Data Source [id number] 07/20/2020 02:06:00 PM [facility] [address] [place] [address] PHONE: [phone] FAX: [phone] Name .................. : TONYA HENDERSON Acct Number.................. : [id number] ROOM. ................. : MR Number ................... : [id number] Stay type ............. : O/P Discharge Date......... ... : 07/19/20 Admit Date ......... : 07/19/20 Admit Phys .................... : ABDI TIN Date of ....... : 1945 Family Phys ................... : JUAN PABLO JAMIL Phone .................. : [phone] Age ................................ : 75 Film# .................. .:[id number] Sex ................................. : F Unsigned transcriptions are preliminary reports and do not represent a medical or legal document MRI PELVIS W&W/O CONTRAST [id number] COMPLETE:07/19/20 11:56 [facility] [place] [id number] PELVIC US DONE 06/13/20 NOTING RT OVARIAN ?DERMOID AND FOBROID IN UTER PELVIC MRI SCAN WITHOUT AND WITH CONTRAST, 07/19/20: Comparison is made to ultrasound from 06/13/20. FINDINGS: The uterus measures 6.3 cm x 2.9 cm x 5.8 cm. There is a small round area of low signal intensity at the uterine myometrium on the right side from a leiomyoma measuring 0.8 cm. This appears to correspond with the ultrasound. On the ultrasound, there is another 0.6 cm suspected leiomyoma that was seen, that is not clearly seen on the MRI scan. The endometrial thickness is within normal limits, measuring about 0.3 cm. The left ovary measures about 2.4 cm x 1.4 cm x 2.4 cm. There is a cyst that is hyperintense on the T2 weighted images at the left ovary that measures about 1.1 cm x 0.9 cm x 1.3 cm that does not enhance. This corresponds with the ultrasound. The right ovary measures 2.6 cm x 1 cm x 2.3 cm and appears unremarkable. On the ultrasound, the technologist had measured an area that was equivocal to begin with for being the right ovary with a hyperechoic possible calcification. This was likely a phlebolith the technologist was measuring. After the contrast administration, no suspicious areas of enhancement are seen. No free fluid is seen. No lymphadenopathy is seen. IMPRESSION: A 1.3 cm cyst at the left ovary. Small uterine leiomyoma. Right ovary unremarkable. No acute disease. Electronically Reviewed and Renate d By Jarrell Agee MD , 07/20/20 14:06, TDS Transcribe Initials: SSR, Transcribe Date: 07/20/20 07:59, Dictation Date: Copy for: JUAN PABLO LOOMIS via fax Page 1 of 2 [facility] [address] [place] [address] PHONE: [phone] FAX: [phone] Name .................. : TONYA HENDERSON Acct Number.................. : [id number] ROOM. ................. : Number ................... : [id number] Stay type ............. : O/P Discharge Date......... ... : 07/19/20 Admit Date ......... : 07/19/20 Admit Phys .................... : ABDI TIN Date of ....... : 1945 Family Phys ................... : JUAN PABLO JAMIL Phone .................. : [phone] Age ................................ : 75 Film# .................. .:[id number] Sex ................................. : F Unsigned transcriptions are preliminary reports and do not represent a medical or legal document MRI PELVIS W&W/O CONTRAST [id number] COMPLETE:07/19/20 11:56 [facility] [place] [address] PELVIC US DONE 06/13/20 NOTING RT OVARIAN ?DERMOID AND FOBROID IN UTER Copy for: 710 MED REC Page 2 of 2 Name Value Range Interpretation Code Description Data Che rce(s) Supporting Document(s) ID Date Data Source [id number] 07/19/2020 08:20:00 AM EST [place] ([facility]) Name Value Range Interpretation Code Description Data Che rce(s) Supporting Document(s) Reported Physicians See Note [facility] Note: Reported Physicians:Ordering: Vladislav Padilla AAttending: EDILBERTO OSORIOYNReferring: FATIMAH OSORIOCELYNConsulting: FATIMAH OSORIOCELYNCopy To: Vladislav Osorio ID Date Data Source [id number] 07/19/2020 08:20:00 AM EST [place] ([facility]) Name Value Range Interpretation Code Description Data Che rce(s) Supporting Document(s) AFR AMER GFR >60 AFR AMER GFR [place] ([facility]) Note: Male GFR Inter prentation 20-49 yrs >60 mL/min Normal 50-59 yrs >56 mL/min Normal 60-69 yrs >49 mL/min Normal 70-79yrs >42 mL/min Normal 80 and above >35 mL/min Normal Female GFR Interpretation 20-39 yrs >60 mL/min Normal 40-49 yrs >58 mL/min Normal 50-59 yrs >51 mL/min Normal 60-69 yrs >45 mL/min Normal 70-79 yrs >39 mL/min Normal 80 and above >32 mL/min NormalResponsible Observer: (KIMBERLY) Creatinine [Moles/volume] in Vitreous fluid 0.6 MG/DL Below low normal CREATININE [place] ([facility]) Note: Responsible Observer: (KIMBERLY) Egg donor age 75 yrs AGE [place] ([facility]) Note: Responsible Observer: (KIMBERLY) NON-AA GFR >60 mL/min NON-AA GFR [place] ([facility]) Note: Responsible Observer: (TAD) ID Date Data Source [id number] 07/19/2020 09:13:00 AM [facility] Name Value Range Interpretation Code Description Data Che rce(s) Supporting Document(s) Creatinine [Mass/volume] in Serum or Plasma 0.6 MG/DL 0.7 - 1.5 L [facility] AGE 75 yrs [facility] NON-AA GFR >60 mL/min [facility] AFR AMER GFR >60 [facility] Male GFR Interprenta tion 20-49 yrs >60 mL/min Normal 50-59 yrs >56 mL/min Normal 60-69 yrs >49 mL/min Normal 70-79yrs >42 mL/min Normal 80 and above >35 mL/min Normal Female GFR Interpretation 20-39 yrs >60 mL/min Normal 40-49 yrs >58 mL/min Normal 50-59 yrs >51 mL/min Normal 60-69 yrs >45 mL/min Normal 70-79 yrs >39 mL/min Normal 80 and above >32 mL/min Normal ID Date Data Source [id number] 07/12/2020 04:17:00 PM [facility] ([facility]) Name Value Range Interpretation Code Description Data Che rce(s) Supporting Document(s) Reported Physicians See Note Reported Physici ans [place] ([facility]) Note: Reported Physicians:Ordering: ONEI LL, TINAAttending: ABID, TINAConsulting: JUAN PABLO, JOCELYNCopy To: ABDI, TINACopy To: ABDI, TINACopy To: Juan Pablo, Vladislav ID Date Data Source [id number] 07/12/2020 04:17:00 PM EST [place] ([facility]) Name Value Range Interpretation Code Description Data Che rce(s) Supporting Document(s) Cancer Antigen (CA) 125 17.0 U/mL Cancer Antig en (CA) 125 [place] ([facility]) Note: [facility] Electrochemilumi nescence Immunoassay (ECLIA)Values obtained with different assay methods or kits cannot beused interchangeably. Results cannot be interpreted as absoluteevidence of the presence or absence of malignant disease.Responsible Observer: (rfl) ID Date Data Source [id number] 07/12/2020 04:17:00 PM EST [facility] ([facility]) Name Value Range Interpretation Code Description Data Che rce(s) Supporting Document(s) Cancer Ag 125 [Units/volume] in Serum or Plasma 17.0 U/mL 0.0-38.1 [facility] ([facility]) .~.~N95.0 ID Date Data Source [id number] 07/14/2020 07:07:00 AM [facility] Name Value Range Interpretation Code Description Data Che rce(s) Supporting Document(s) Cancer Ag 125 [Units/volume] in Serum or Plasma 17.0 U/mL 0.0-38.1 [facility] Electrochemiluminescen ce Immunoassay (ECLIA)Values obtained with different assay methods or kits cannot beused interchangeably. Results cannot be interpreted as absoluteevidence of the presence or absence of malignant disease. ID Date Data Source [id number] 07/12/2020 03:38:00 PM EST [facility] ([facility]) Name Value Range Interpretation Code Description Data Che rce(s) Supporting Document(s) MRI Pelvis W&W/O Contrast Laboratory test result [facility]) ID Date Data Source [id number] 06/21/2020 09:11:00 [place] [address] OPERATIVE SUMMARYNAME: TONYA HENDERSON DATE OF : 1945TTENDING PHYS: Edvin Liu MD DATE: 06/21/20 MR#: [id number] OF PROCEDURE: 06/21/2020PRE- OPERATIVE DIAGNOSIS: Rectal bleeding.POST-OPERATIVE DIAGNOSIS: Rectal bleeding.ANESTHESIA: IV sedation.ANESTHESIOLOGIST: Angel Pederson CRNA.ATTENDING SURGEON: Dr. Edvin Liu.FINDINGS: 1. Normal colonoscopy to the cecum. 2. Large prolapsing hemorrhoids.PROCEDURE PERFORMED: Colonoscopy.DETAILS OF PROCEDURE:Patient was brought to the operating room, placed on the operating table in supine position, givenIV sedation, and turned into the left lateral decubitus position. Flexible colonoscope was inserted inthe patient's rectum, and negotiated through the rectum, sigmoid, left colon, transverse colon, andright colon. The cecum was clearly identified. During the passage of the colonoscope, the mucosaexamined with the above findings noted. The patient had a completely normal colonoscopy to thececum. The only abnormality was of patient having large internal and external hemorrhoids withone on her left posterior rectal area, prolapsing. Bowel prep was noted to be excellent. After thececum was examined, the scope was slowly and carefully withdrawn with a full re-inspectionperformed, confirming the above findings. A digital rectal exam was performed, which wasunremarkable.ESTIMATED BLOOD LOSS: None.IV FLUIDS: Crystalloid.DRAINS: None.COMPLICATIONS: None. [address] [place] [address] OPERATIVE SUMMARYNAME: TONYA HENDERSON DATE OF : 1945TTENDING PHYS: Edvin Liu MD DATE: 06/21/20 MR#: [id number]:Patient tolerated procedure well, and was sent to the recovery room in good condition.DD: Edvin Liu MD 06/21/20 08:54DT: LEIDY 06/21/20 09:07DS: Edvin Liu MD 07/06/20 11:01 2 Name Value Range Interpretation Code Description Data Che rce(s) Supporting Document(s) ID Date Data Source [id number] 06/24/2020 02:03:00 [place] [address] PHONE: [phone] FAX: [phone] Name .................. : TONYA HENDERSON Acct Number.................. : [id number] ROOM. ................. : Number ................... : [id number] Stay type ............. : O/P Discharge Date......... ... : 06/24/20 Admit Date ......... : 06/24/20 Admit Phys .................... : JUAN PABLO JAMIL Date of ....... : 1945 Family Phys ................... : [employer] Phone .................. : [phone] Age ................................ : 75 Film# .................. .:[id number] Sex ................................. : F Unsigned transcriptions are preliminary reports and do not represent a medical or legal document RENAL/URINARY BLADDER [id number] COMPLETE:06/24/20 08:53 [facility] 62269 (PROCEDURE REASON calculus of kidney RENAL ULTRASOUND, 06/24/20: FINDINGS: Renal mass, hydronephrosis, or calculus is not identified. Extrarenal pelvis is seen in the right kidney without calyceal dilatation. Bilateral ureteral jets were confirmed entering the urinary bladder. Bladder mucosa mass or calculus is not seen. Right renal dimensions are 10.0 x 4.5 x 5.2 cm. Left renal dimensions are 10.2 x 6.1 x 5.1 cm. IMPRESSION: Acute pathology or mass not seen. Electronically Reviewed and Signed By Meena Richardson MD , 06/24/20 14:03, KGG Transcribe Initials: SSR, Transcribe Date: 06/24/20 11:14, Dictation Date: Copy for: JUAN PABLO LOOMIS via fax Copy for: [address] [place] [address] REC Page 1 of 1 Name Value Range Interpretation Code Description Data Che rce(s) Supporting Document(s) ID Date Data Source [id number] 06/17/2020 09:24:00 AM KYARA HENRIQUEZ ([facility]) Name Value Range Interpretation Code Description Data Che rce(s) Supporting Document(s) Reported Physicians See Note Reported Physici maria del rosario HENRIQUE[facility] ([facility]) Note: Reported Physicians:Ordering: EDVIN BILLINGSLEY FAttending: EDVIN LIUConsulting: VLADISLAV OSORIOCopjessee To: Gregor Liu To: Vladislav Osorio ID Date Data Source [id number] 06/17/2020 09:24:00 AM KYARA HENRIQUEZ ([facility]) Name Value Range Interpretation Code Description Data Che rce(s) Supporting Document(s) SARS-CoV-2, REFUGIO Not Detected SARS-CoV-2, REFUGIO [facility] ([facility] Note: This nucleic acid amplification te st was developed and its performancecharacteristics determined by [facility]. Nucleic acidamplification tests include PCR and TMA. This test has not been FDAcleared or approved. This test has been authorized by FDA under anEmergency Use Authorization (EUA). This test is only authorized forthe duration of time the declaration that circumstances existjustifying the authorization of the emergency use of in vitrodiagnostic tests for detection of SARS-CoV-2 virus and/or diagnosisof COVID-19 infection under section 564(b)(1) of the Act, 21 U.S.C.360bbb-3(b) (1), unless the authorization is terminated or revokedsooner.When diagnostic testing is negative, the possibility of a falsenegative result should be considered in the context of a patient'srecent e xposures and the presence of clinical signs and symptomsconsistent with COVID- 19. An individual without symptoms of COVID-19and who is not shedding SARS-CoV-2 virus would expect to have anegative (not detected) result in this assay.Responsible Observer: (rfl) ID Date Data Source [id number] 06/17/2020 09:24:00 AM EDT [facility] Name Value Range Interpretation Code Description Data Che rce(s) Supporting Document(s) SARS coronavirus 2 RNA [facility] This lab was ordered by [facility] марина and reported by [facility]. ID Date Data Source [id number] 06/18/2020 02:42:00 PM EDT [facility] Name Value Range Interpretation Code Description Data Che rce(s) Supporting Document(s) SARS-CoV-2, REFUGIO Not Detected Not Detected [facility] This nucleic acid amplification test was developed and its performancecharacteristics determined by [facility]. Nucleic acidamplification tests include PCR and TMA. This test has not been FDAcleared or approved. This test has been authorized by FDA under anEmergency Use Authorization (EUA). This test is only authorized forthe duration of time the declaration that circumstances existjustifying the authorization of the emergency use of in vitrodiagnostic tests for detection of SARS-CoV-2 virus and/or diagnosisof COVID-19 infection under section 564(b)(1) of the Act, 21 U.S.C.360bbb-3(b) (1), unless the authorization is terminated or revokedsooner.When diagnostic testing is negative, the possibility of a falsenegative result should be considered in the context of a patient'srecent exposures and the presence of clinical signs and symptomsconsistent with COVID- 19. An individual without symptoms of COVID-19and who is not shedding SARS-CoV-2 virus would expect to have anegative (not detected) result in this assay. ID Date Data Source [id number] 06/14/2020 03:32:00 PM EDT [facility] [address] [place] [address] PHONE: [phone] FAX: [phone] Name .................. : TONYA HENDERSON Acct Number.................. : [id number] ROOM. ................. : Number ................... : [id number] Stay type ............. : O/P Discharge Date......... ... : 06/13/20 Admit Date ......... : 06/13/20 Admit Phys .................... : JUAN PABLO JAMIL Date of ....... : 1945 Family Phys ................... : [employer] Phone .................. : [phone] Age ................................ : 75 Film# .................. .:[id number] Sex ................................. : F Unsigned transcriptions are preliminary reports and do not represent a medical or legal document TRANSVAGINAL(NON OB) [id number] COMPLETE:06/13/20 10:09 [facility] [id number] (REASON FOR OBS: gross hematuria T RANSVAGINAL PELVIC ULTRASOUND, 06/13/20: Correlation is made with the transabdominal ultrasound. FINDINGS: Transvaginal imaging was performed. The uterus measures 6.1 cm x 2.6 cm x 4.2 cm. There is a small round hypoechoic area at the uterine myometrium at the uterine body consistent with a small leiomyoma measuring 0.6 cm x 0.7 cm x 0.5 cm. Another small hypoechoic leiomyoma is seen towards the lower uterine segment measuring 0.5 cm x 0.3 cm x 0.4 cm. These were not demonstrated on the transabdominal imaging. The left ovary measures about 1.7 cm x 2.6 cm x 1.9 cm. A normal-appearing follicle is seen at the left ovary measuring about 1.4 cm x 1.4 cm x 0.9 cm. Questionably the right ovary measures about 1.6 cm x 1.7 cm x 1.1 cm. There is a hyperechoic focus beam shadowing that may be some calcification at the right ovary. This suspected calcification measures about 0.5 cm. Normal arterial blood flow is demonstrated without torsion. IMPRESSION: Uterine leiomyomata. Normal-appearing follicle seen at the left ovary. There is an area that the technologist depicts and labeled as right ovary that is somewhat questionable. There is a hyperechoic area in this region that appears to be an area of calcification. I suppose this could be an area of fat tissue within the right ovary if this is indeed the right ovary, possibly from a small dermoid. This area measures 0.5 cm. Further characterization may be made with MRI of the pelvis without and with contrast. Electronically Reviewed and Signed By Jarrell Agee MD , 06/14/20 15:33, TDS Page 1 of 2 [place] [address] PHONE: [phone] FAX: [phone] Name .................. : TONYA HENDERSON Acct Number.................. : [id number] ROOM. ................. : MR Number ................... : [id number] Stay type ... .......... : O/P Discharge Date......... ... : 06/13/20 Admit Date ......... : 06/13/20 Admit Phys .................... : JUAN PABLO JAMIL Date of ....... : 1945 Family Phys ................... : JUAN PABLO JAMIL Phone .................. : [phone] Age ................................ : 75 Film# .................. .:[id number] Sex ................................. : F Unsigned transcriptions are preliminary reports and do not represent a medical or legal document TRANSVAGINAL(NON OB) [id number] COMPLETE:06/13/20 10:09 [facility] 50214 (REASON FOR OBS: gross hematuria Transcribe Initials: SSR, Transcribe Date: 06/13/20 14:41, Dictation Date: Copy for: JUAN PABLO LOOMIS via fax Copy for: 710 MED REC Page 2 of 2 Name Value Range Interpretation Code Description Data Che rce(s) Supporting Document(s) ID Date Data Source [id number] 06/14/2020 03:32:00 PM EDT [facility] [address] [place] [address] PHONE: [phone] FAX: [phone] Name .................. : TONYA HENDERSON Acct Number.................. : [id number] ROOM. ................. : Number ................... : [id number] Stay type ............. : O/P Discharge Date......... ... : 06/13/20 Admit Date ......... : 06/13/20 Admit Phys .................... : JUAN PABLO TERRYCE Date of ....... : 1945 Family Phys ................... : JUAN PABLO JAMIL Phone .................. : [phone] Age ................................ : 75 Film# .................. .:[id number] Sex ................................. : F Unsigned transcriptions are preliminary reports and do not represent a medical or legal document PELVIC [id number] COMPLETE:06/13/20 10:09 [facility] 71528 (REASON FOR PELVIS: GROSS HEMATURIA TRANSABDOMINAL PELVIC ULTRASOUND, 06/13/20: FINDINGS: Transabdominal imaging of the pelvis was performed. The uterus measures about 6.6 cm x 2.7 cm x 4.5 cm. The uterus has a normal-appearing echotexture without focal lesion. The endometrial thickness is within normal limits measuring 0.4 cm without focal lesion. No free fluid is seen. Ovaries are not identified. No adnexal mass is identified. The visualized portion of the urinary bladder appears unremarkable. IMPRESSION: Uterus unremarkable. Ovaries are not seen. Transvaginal ultrasound to follow. Electronically Reviewed and Signed By Jarrell Agee MD , 06/14/20 15:32, TDS Transcribe Initials: LEIDY, Transcribe Date: 06/13/20 14:29, Dictation Date: Copy for: JUAN PABLO LOOMIS via fax Copy for: [address] [place] [address] Page 1 of 1 Name Value Range Interpretation Code Description Data Che rce(s) Supporting Document(s) ID Date Data Source [id number] 06/09/2020 03:46:00 PM EDT [place] ([facility]) Name Value Range Interpretation Code Description Data Che rce(s) Supporting Document(s) Bilirubin [Presence] in Peritoneal fluid N/A Normal BILIRUBIN [place] ([facility]) Blood [Presence] in Urine by Visual N/A Normal BLOOD [place] ([facility]) Color of Exudate from wound N/A Normal COLOR [place] ([facility]) Glucose [Mass/volume] in Urine collected for unspecified duration N /A Normal GLUCOSE [place] ([facility]) Ketones [Presence] in Blood by Tablet N/A Normal KETONES [place] ([facility]) NITRATES neg Normal NITRATES [place] ([facility]) Leukocytes [#/volume] by Microscopy high power field in Urine sediment collected for unspecified duration small Abnormal (applies to n on-numeric results) LEUKOCYTES [place] ([facility]) pH of Vaginal fluid by Test strip 5 Normal pH [place] ([facility]) Protein [Mass/volume] in Saliva (oral fluid) N/A No rmal PROTEIN [place] ([facility]) UROBILIGIN 0.2 Normal UROBILIGIN [place] ([facility]) Specific gravity of Pericardial fluid by Refractometry 1.015 Normal SPECIFIC GRAVITY [place] ([facility]) Procedure Social History Code Duration Value Status Description Data Source(s ) Alcohol intake 07/05/2021 12:00:00 AM EST Ex-drinker (finding) comp leted Ex- drinker (finding) [facility] Smoking 06/21/2021 11:24:00 AM EDT Denies Ever Smoked complete d Denies Ever Smoked [facility] Alcohol intake 06/06/2021 12:00:00 AM EDT Ex-drinker (finding) comp leted Ex- drinker (finding) [facility] Alcohol intake 05/24/2021 12:00:00 AM EDT Ex-drinker (finding) comp leted Ex- drinker (finding) [facility] Alcohol intake 05/04/2021 12:00:00 AM EDT Ex-drinker (finding) comp leted Ex- drinker (finding) [facility] Alcohol intake 04/07/2021 12:00:00 AM EDT Ex-drinker (finding) comp leted Ex- drinker (finding) [facility] Alcohol intake 02/24/2021 12:00:00 AM EDT Ex-drinker (finding) comp leted Ex- drinker (finding) [facility] Tobacco use and exposure 02/23/2021 12:00:00 AM EDT Never used co mpleted Never used [facility] Smoking 02/23/2021 12:00:00 AM EDT Never smoker completed Never s moker [facility] Vital Signs ID Date Data Source UNK Name Value Range Interpretation Code Description Data Source(s) Body temperature 36.83 Nicanor 36.83 Nicanor [facility] Oxygen saturation in Arterial blood by Pulse oximetry 94 % 94 % [facility] Heart rate 77 /min 77 /min [facility] Respiratory rate 16 /min 16 /min [facility] Systolic blood pressure 119 mm[Hg] 119 mm[Hg] [facility] Diastolic blood pressure 72 mm[Hg] 72 mm[Hg] [facility] Body mass index (BMI) [Ratio] 21.95 kg/m2 21.95 kg/m2 [facility] Body height 157.5 cm 157.5 cm [facility] Body weight 54.432 kg 54.432 kg [facility] Systolic blood pressure 134 mm[Hg] Normal (applies t o non-numeric results) 134 mm[Hg] [facility] Diastolic blood pressure 78 mm[Hg] Normal (applies to non-numeric results) 78 mm[Hg] [facility] Body temperature 36.9 nicanor Normal (applies to non-numeric results) 36.9 nicanor [facility] Deprecated Oxygen saturation in Capillary blood by Oximetry 98 % Normal (applies to non-numeric results) 98 % [facility] Body weight Measured 57.3 kg Normal (applies to non-num rodney results) 57.3 kg [facility] Heart rate 79 min Normal (applies to non-numeric resul ts) 79 min [facility] Respiratory rate 18 min Normal (applies to non-numeric results) 18 min [facility] Body temperature 36.17 Nicanor 36.17 Nicanor [facility] Respiratory rate 16 /min 16 /min [facility] Oxygen saturation in Arterial blood by Pulse oximetry 98 % 98 % [facility] Systolic blood pressure 137 mm[Hg] 137 mm[Hg] [facility] Diastolic blood pressure 80 mm[Hg] 80 mm[Hg] [facility] Heart rate 76 /min 76 /min [facility] Heart rate 82 /min 82 /min [facility] Oxygen saturation in Arterial blood by Pulse oximetry 100 % 100 % [facility] Systolic blood pressure 93 mm[Hg] 93 mm[Hg] [facility] Diastolic blood pressure 57 mm[Hg] 57 mm[Hg] [facility] Body temperature 36.39 Nicanor 36.39 Nicanor [facility] Respiratory rate 16 /min 16 /min [facility] Body height 157.5 cm 157.5 cm [facility] Body weight 55.792 kg 55.792 kg [facility] Body mass index (BMI) [Ratio] 22.50 kg/m2 22.50 kg/m2 [facility] Systolic blood pressure 114 mm[Hg] 114 mm[Hg] [facility] Diastolic blood pressure 70 mm[Hg] 70 mm[Hg] [facility] Heart rate 76 /min 76 /min [facility] Body temperature 36.33 Nicanor 36.33 Nicanor [facility] Respiratory rate 16 /min 16 /min [facility] Oxygen saturation in Arterial blood by Pulse oximetry 100 % 100 % [facility] Body height 157.5 cm 157.5 cm [facility] Body weight 57.153 kg 57.153 kg [facility] Body mass index (BMI) [Ratio] 23.05 kg/m2 23.05 kg/m2 [facility] Systolic blood pressure 122 mm[Hg] 122 mm[Hg] [facility] Diastolic blood pressure 77 mm[Hg] 77 mm[Hg] [facility] Heart rate 96 /min 96 /min [facility] Body temperature 37.28 Nicanor 37.28 Nicanor [facility] Respiratory rate 16 /min 16 /min [facility] [facility] Oxygen saturation in Arterial blood by Pulse oximetry 98 % 98 % [facility] Body height 157.5 cm 157.5 cm [facility] Body weight 58.06 kg 58.06 kg [facility] Body mass index (BMI) [Ratio] 23.41 kg/m2 23.41 kg/m2 [facility] Systolic blood pressure 160 mm[Hg] 160 mm[Hg] [facility] Diastolic blood pressure 65 mm[Hg] 65 mm[Hg] [facility] Heart rate 65 /min 65 /min [facility] Body temperature 36.67 Nicanor 36.67 Nicanor [facility] Respiratory rate 16 /min 16 /min [facility] Oxygen saturation in Arterial blood by Pulse oximetry 99 % 99 % [facility] Body height 157.5 cm 157.5 cm [facility] Body weight 58.06 kg 58.06 kg [facility] Body mass index (BMI) [Ratio] 23.41 kg/m2 23.41 kg/m2 [facility] Respiratory rate 24 /min 24 /min [place] ([facility]) Oxygen saturation in Arterial blood by Pulse oximetry 98 % 98 % [place] ([facility] Inhaled oxygen flow rate 0 L/min 0 L/min [place] ([facility]) Inhaled oxygen concentration 21 % 21 % [place] ([facility]) Body temperature 98.7 [degF] 98.7 [degF] [place] ([facility]) Body height 61 [in_i] 61 [in_i] [place] ([facility]) Systolic blood pressure 128 mm[Hg] 128 mm[Hg] G [place] ([facility]) Diastolic blood pressure 68 mm[Hg] 68 mm[Hg] [place] ([facility]) Body weight 130 [lb_av] 130 [lb_av] [place] ([facility]) Heart rate 68 /min 68 /min [place] ([facility]) Body mass index (BMI) [Ratio] 24.6 kg/m2 24.6 k g/m2 [place] ([facility]) Body surface area Derived from formula 1.57 m2 1.57 m2 [place] ([facility]) Systolic blood pressure 115 mm[Hg] 115 mm[Hg] [facility] Body temperature 36.33 Nicanor 36.33 Nicanor [facility] Respiratory rate 18 /min 18 /min [facility] Oxygen saturation in Arterial blood by Pulse oximetry 98 % 98 % [facility] Diastolic blood pressure 72 mm[Hg] 72 mm[Hg] [facility] Heart rate 89 /min 89 /min [facility] Body height 162.6 cm 162.6 cm [facility] per photo ID Body weight 58.514 kg 58.514 kg [facility] Body mass index (BMI) [Ratio] 22.14 kg/m2 22.14 kg/m2 [facility] Systolic blood pressure 141 mm[Hg] 141 mm[Hg] [facility] Diastolic blood pressure 84 mm[Hg] 84 mm[Hg] [facility] Heart rate 61 /min 61 /min [facility] Body temperature 36.33 Nicanor 36.33 Nicanor [facility] Respiratory rate 16 /min 16 /min [facility] Oxygen saturation in Arterial blood by Pulse oximetry 98 % 98 % [facility] Body weight 58.5 kg 58.5 kg [facility] Body mass index (BMI) [Ratio] 23.59 kg/m2 23.59 kg/m2 [facility] Body height 157.5 cm 157.5 cm [facility] Oxygen saturation in Arterial blood by Pulse oximetry 98 % 98 % [facility] ([facility]) Heart rate 62 /min 62 /min [facility] ([facility]) Body height 62 [in_i] 62 [in_i] [facility] ([facility]) 5'2" Systolic blood pressure 102 mm[Hg] 102 mm[Hg] M [facility] ([facility]) Diastolic blood pressure 80 mm[Hg] 80 mm[Hg] [facility] ([facility]) Body weight 136.00 [lb_av] 136.00 [lb_av] [place] ([facility]) Body mass index (BMI) [Ratio] 24.9 kg/m2 24.9 k g/m2 [facility] ([facility]) [place] body weight 110 [lb_av] 110 [lb_av] [place] [facility] ([facility]) Body weight 61.690 kg 61.690 kg [facility] ([facility]) Body surface area Derived from formula 1.62 m2 1.62 m2 [facility] ([facility]) Heart rate 52 /min 52 /min [facility] ([facility]) Oxygen saturation in Arterial blood by Pulse oximetry 98 % 98 % [facility] ([facility]) Body weight 63.050 kg 63.050 kg [facility] ([facility]) Body surface area Derived from formula 1.64 m2 1.64 m2 [facility] ([facility]) Body height 62 [in_i] 62 [in_i] [facility] ([facility]) 5'2" Body weight 139.00 [lb_av] 139.00 [lb_av] [place] [facility] ([facility]) Systolic blood pressure 128 mm[Hg] 128 mm[Hg] [facility]) Diastolic blood pressure 84 mm[Hg] 84 mm[Hg] [facility] ([facility]) Body mass index (BMI) [Ratio] 25.4 kg/m2 25.4 k g/m2 [facility] ([facility], ) [place] body weight 110 [lb_av] 110 [lb_av] [place] [facility] ([facility], ) Respiratory rate 26 /min 26 /min [place] ([facility]) Body temperature 97.6 [degF] 97.6 [degF] [facility] ([facility]) Body height 61 [in_i] 61 [in_i] [place] ([facility]) Body weight 141 [lb_av] 141 [lb_av] [place] ([facility]) Body mass index (BMI) [Ratio] 26.6 kg/m2 26.6 k g/m2 [place] ([facility]) Body surface area Derived from formula 1.63 m2 1.63 m2 [place] ([facility]) Oxygen saturation in Arterial blood by Pulse oximetry 98 % 98 % [place] ([facility]) Inhaled oxygen flow rate 0 L/min 0 L/min [place] ([facility]) Inhaled oxygen concentration 21 % 21 % [place] ([facility]) Systolic blood pressure 112 mm[Hg] 112 mm[Hg] [facility] ([facility]) Diastolic blood pressure 62 mm[Hg] 62 mm[Hg] [place] ([facility]) Heart rate 73 /min 73 /min [place] ([facility]) Body surface area Derived from formula 1.66 m2 1.66 m2 [facility] ([facility], ) Diastolic blood pressure 80 mm[Hg] 80 mm[Hg] [facility] ([facility], ) Body weight 144.00 [lb_av] 144.00 [lb_av] [place] [facility] ([facility], ) Body mass index (BMI) [Ratio] 26.3 kg/m2 26.3 k g/m2 [facility] ([facility], ) [place] body weight 110 [lb_av] 110 [lb_av] [place] [facility] ([facility], ) Body weight 65.318 kg 65.318 kg [facility] ([facility], ) Systolic blood pressure 122 mm[Hg] 122 mm[Hg] M [facility] ([facility]) Heart rate 61 /min 61 /min [facility] ([facility]) Oxygen saturation in Arterial blood by Pulse oximetry 96 % 96 % [facility] ([facility]) Body height 62 [in_i] 62 [in_i] [facility] ([facility]) 5'2" Diastolic blood pressure 90 mm[Hg] 90 mm[Hg] [facility] ([facility]) Body surface area Derived from formula 1.67 m2 1.67 m2 [facility] ([facility]) Systolic blood pressure 140 mm[Hg] 140 mm[Hg] M [facility] ([facility]) Heart rate 53 /min 53 /min [facility] ([facility]) Oxygen saturation in Arterial blood by Pulse oximetry 96 % 96 % [facility] ([facility]) Body height 62 [in_i] 62 [in_i] [facility] ([facility]) 5'2" Body weight 145.00 [lb_av] 145.00 [lb_av] [place] [facility] ([facility]) Body mass index (BMI) [Ratio] 26.5 kg/m2 26.5 k g/m2 [facility] ([facility]) [place] body weight 110 [lb_av] 110 [lb_av] [place] [facility] ([facility]) Body weight 65.772 kg 65.772 kg [facility] ([facility]) Respiratory rate 24 /min 24 /min [place] ([facility]) Body temperature 97.6 [degF] 97.6 [degF] [facility] ([facility]) Body height 61 [in_i] 61 [in_i] [place] ([facility]) Body weight 145 [lb_av] 145 [lb_av] [place] ( [facility] Body mass index (BMI) [Ratio] 27.4 kg/m2 27.4 k g/m2 [place] ([facility]) Body surface area Derived from formula 1.65 m2 1.65 m2 [place] ([facility]) Oxygen saturation in Arterial blood by Pulse oximetry 96 % 96 % [place] ([facility]) Inhaled oxygen flow rate 0 L/min 0 L/min [place] ([facility]) Inhaled oxygen concentration 21 % 21 % [place] ([facility]) Systolic blood pressure 120 mm[Hg] 120 mm[Hg] G [facility] ([facility]) Diastolic blood pressure 68 mm[Hg] 68 mm[Hg] [place] ([facility]) Heart rate 68 /min 68 /min [place] ([facility]) Diastolic blood pressure 68 mm[Hg] 68 mm[Hg] [place] ([facility]) Heart rate 89 /min 89 /min [place] ([facility]) Respiratory rate 24 /min 24 /min [place] ([facility]) Body temperature 97.6 [degF] 97.6 [degF] [facility] ([facility]) Body height 61 [in_i] 61 [in_i] [place] ([facility]) Body weight 148 [lb_av] 148 [lb_av] [place] ([facility]) Body mass index (BMI) [Ratio] 28.0 kg/m2 28.0 k g/m2 [place] ([facility]) Body surface area Derived from formula 1.66 m2 1.66 m2 [place] ([facility]) Oxygen saturation in Arterial blood by Pulse oximetry 97 % 97 % [place] ([facility]) Inhaled oxygen flow rate 0 L/min 0 L/min [place] ([facility]) Inhaled oxygen concentration 21 % 21 % [place] ([facility]) Systolic blood pressure 124 mm[Hg] 124 mm[Hg] G [facility] ([facility]) Body weight 148 [lb_av] 148 [lb_av] [place] ([facility]) Body mass index (BMI) [Ratio] 28.0 kg/m2 28.0 k g/m2 [place] ([facility]) Body surface area Derived from formula 1.66 m2 1.66 m2 [place] ([facility]) Oxygen saturation in Arterial blood by Pulse oximetry 98 % 98 % [place] ([facility]) Inhaled oxygen flow rate 0 L/min 0 L/min [place] ([facility]) Inhaled oxygen concentration 21 % 21 % [place] ([facility]) Systolic blood pressure 126 mm[Hg] 126 mm[Hg] [place] ([facility]) Diastolic blood pressure 76 mm[Hg] 76 mm[Hg] [place] ([facility]) Respiratory rate 24 /min 24 /min [place] ([facility]) Heart rate 76 /min 76 /min [place] ([facility]) Body temperature 97.6 [degF] 97.6 [degF] [place] ([facility]) Body height 61 [in_i] 61 [in_i] [place] ([facility]) Systolic blood pressure 128 mm[Hg] 128 mm[Hg] M [place] ([facility]) Diastolic blood pressure 76 mm[Hg] 76 mm[Hg] [place] ([facility]) Systolic blood pressure 130 mm[Hg] 130 mm[Hg] M [place] ([facility]) Diastolic blood pressure 80 mm[Hg] 80 mm[Hg] [facility] ([facility]) Body height 62 [in_i] 62 [in_i] [facility] 5'2" Body weight 127.00 [lb_av] 127.00 [lb_av] [facility] T ([facility]) Body weight 57.607 kg 57.607 kg [facility] Body mass index (BMI) [Ratio] 23.2 kg/m2 23.2 k g/m2 [facility] ([facility]) Body weight 147 [lb_av] 147 [lb_av] [place] ([facility]) Respiratory rate 22 /min 22 /min [place] ([facility]) Body height 61 [in_i] 61 [in_i] [place] ([facility]) Body temperature 97.4 [degF] 97.4 [degF] [place] ([facility]) Body mass index (BMI) [Ratio] 27.8 kg/m2 27.8 k g/m2 [place] ([facility]) Inhaled oxygen concentration 21 % 21 % [place] ([facility]) Body surface area Derived from formula 1.66 m2 1.66 m2 [place] ([facility]) Systolic blood pressure 128 mm[Hg] 128 mm[Hg] G [facility] ([facility]) Diastolic blood pressure 80 mm[Hg] 80 mm[Hg] [place] ([facility]) Heart rate 62 /min 62 /min [place] ([facility]) Oxygen saturation in Arterial blood by Pulse oximetry 94 % 94 % [place] ([facility]) Inhaled oxygen flow rate 0 L/min 0 L/min [place] ([facility]) Respiratory rate 22 /min 22 /min [place] ([facility]) Body temperature 97.4 [degF] 97.4 [degF] [facility] ([facility]) Body height 61 [in_i] 61 [in_i] [place] ([facility]) Body weight 147 [lb_av] 147 [lb_av] [facility] Body mass index (BMI) [Ratio] 27.8 kg/m2 27.8 k g/m2 [place] ([facility]) Body surface area Derived from formula 1.66 m2 1.66 m2 [place] ([facility]) Systolic blood pressure 128 mm[Hg] 128 mm[Hg] [facility] Diastolic blood pressure 80 mm[Hg] 80 mm[Hg] [place] ([facility]) Systolic blood pressure 142 mm[Hg] 142 mm[Hg] M [place] ([facility]) pt states "its been higher lately" Diastolic blood pressure 88 mm[Hg] 88 mm[Hg] [facility]) pt states "its been higher lately" Heart rate 64 /min 64 /min [facility] ([facility]) Body temperature 95.5 [degF] 95.5 [degF] [facility] ([facility]) Body weight 148.00 [lb_av] 148.00 [lb_av] [place] T ([facility]) Body weight 67.133 kg 67.133 kg [facility] ([facility]) Body height 62.5 [in_i] 62.5 [in_i] [place] ([facility]) 5'2.50" Body mass index (BMI) [Ratio] 26.6 kg/m2 26.6 k g/m2 [place] ([facility]) Body surface area Derived from formula 1.69 m2 1.69 m2 [facility] ([facility]) Inhaled oxygen concentration 21 % 21 % [place] ([facility]) Body weight 147 [lb_av] 147 [lb_av] [place] ([facility]) Body temperature 97.6 [degF] 97.6 [degF] [facility] ([facility]) Body height 61 [in_i] 61 [in_i] [place] ([facility]) Body mass index (BMI) [Ratio] 27.8 kg/m2 27.8 k g/m2 [place] ([facility]) Body surface area Derived from formula 1.66 m2 1.66 m2 [place] ([facility]) Oxygen saturation in Arterial blood by Pulse oximetry 98 % 98 % [place] ([facility]) Inhaled oxygen flow rate 0 L/min 0 L/min [place] ([facility]) Systolic blood pressure 118 mm[Hg] 118 mm[Hg] [facility] Diastolic blood pressure 68 mm[Hg] 68 mm[Hg] [place] ([facility]) Heart rate 68 /min 68 /min [place] ([facility]) Respiratory rate 24 /min 24 /min [place] ([facility]) Oxygen saturation in Arterial blood by Pulse oximetry 97 % 97 % [place] ([facility]) Body mass index (BMI) [Ratio] 27.8 kg/m2 27.8 k g/m2 [place] ([facility]) Respiratory rate 24 /min 24 /min [place] ([facility]) Body height 61 [in_i] 61 [in_i] [place] ([facility] Body temperature 97.6 [degF] 97.6 [degF] [facility] ([facility]) Body weight 147 [lb_av] 147 [lb_av] [place] ( [facility] Body surface area Derived from formula 1.66 m2 1.66 m2 [place] ([facility]) Systolic blood pressure 122 mm[Hg] 122 mm[Hg] [place] ([facility]) Inhaled oxygen concentration 21 % 21 % [place] ([facility]) Inhaled oxygen flow rate 0 L/min 0 L/min [place] ([facility]) Diastolic blood pressure 68 mm[Hg] 68 mm[Hg] [place] ([facility]) Heart rate 68 /min 68 /min [place] ([facility]) Diastolic blood pressure 63 mm[Hg] 63 mm[Hg] [facility] ([facility]) Heart rate 53 /min 53 /min [facility]) Body temperature 97.2 [degF] 97.2 [degF] [facility] ([facility]) Body height 61.5 [in_i] 61.5 [in_i] [facility] ([facility]) 5'1.50" Body mass index (BMI) [Ratio] 27.3 kg/m2 27.3 k g/m2 [facility] ([facility]) Body surface area Derived from formula 1.67 m2 1.67 m2 [facility]) Systolic blood pressure 142 mm[Hg] 142 mm[Hg] M [place] ([facility]) Respiratory rate 16 /min 16 /min [facility] ( [facility]) Body weight 147.00 [lb_av] 147.00 [lb_av] [place] T ([facility]) Body weight 66.679 kg 66.679 kg [facility] ([facility]) ID Date Data Source [id number] 02/28/2021 10:10:52 AM EDT [facility] Hospital Name Value Range Interpretation Code Description Data Source(s) TRANSFER FROM [facility] ID Date Data Source [id number] 07/12/2020 03:38:39 PM EST [facility] Name Value Range Interpretation Code Description Data Source(s) WEIGHT RECORDED 147.00 pounds 147.00 pounds [facility] Height 61 Inches 061 Inches [facility] Patient Treatment Plan of Care Planned Activity Planned Date Details Description Data Source (s) dextrose 5 % and sodium chloride 0.45 % infusion 07/05/2021 12:00:0 0 PM EST [facility] Acetaminophen 325 MG Oral Tablet 07/05/2021 11:30:20 AM EST [facility] Acetaminophen 325 MG Oral Tablet 05/24/2021 11:40:25 AM EDT [facility] Acetaminophen 325 MG Oral Tablet 05/04/2021 10:08:56 AM EDT [facility] Ondansetron 4 MG Disintegrating Oral Tablet 03/31/2021 04:12:14 PM EDT [facility] Docusate Sodium 50 MG / sennosides, ASSISTED 8.6 MG Oral Ta blet 03/31/2021 12:00:00 AM EDT [facility] Magnesium Hydroxide 80 MG/ML Oral Suspension 03/28/2021 12:00:00 AM EDT [facility] Docusate Sodium 100 MG Oral Capsule 03/27/2021 02:11:20 PM EDT [facility] ondansetron (ZOFRAN) injection 4 mg 03/27/2021 12:04:18 PM EDT [facility] 2 ML Metoclopramide 5 MG/ML Prefilled Syringe 03/27/2021 12:04:18 P M EDT [facility] Acetaminophen 325 MG Oral Tablet 03/27/2021 12:04:08 PM EDT [facility] Simvastatin 20 MG Oral Tablet 03/20/2021 12:00:00 AM EDT [place] ([facility]) Nystatin [id number] UNT/ML Oral Suspension 03/20/2021 12:00:00 [facility] [place]-3 Acid Ethyl Esters (ASSISTED) 1000 MG Oral Capsule [ Lovaza] 03/20/2021 12:00:00 AM EDT [place] ([facility]) Omeprazole 20 MG Delayed Release Oral Capsule 03/20/2021 12:00:00 A M EDT [facility]) Metoprolol Tartrate 25 MG Oral Tablet 03/20/2021 12:00:00 AM EDT [facility]) Ergocalciferol [id number] UNT Oral Capsule [Drisdol] 03/20/2021 12:00:00 AM EDT [place] ([facility]) Aspirin 81 MG Delayed Release Oral Tablet 03/20/2021 12:00:00 AM ED T [facility]) 72 HR Fentanyl 0.012 MG/HR Transdermal Patch 03/17/2021 12:00:00 AM EDT [facility] Lidocaine Hydrochloride 20 MG/ML Mucous Membrane Topic al Solution 03/15/2021 11:52:59 AM EDT [facility] pregabalin 75 MG Oral Capsule 03/15/2021 12:00:00 AM EDT [facility] Acetaminophen 325 MG Oral Tablet 03/15/2021 12:00:00 AM EDT [facility] Lidocaine Hydrochloride 20 MG/ML Mucous Membrane Topic al Solution 03/15/2021 12:00:00 AM EDT [facility] Mirtazapine 30 MG Oral Tablet 03/15/2021 12:00:00 AM EDT [facility] Nystatin [id number] UNT/ML Oral Suspension 03/15/2021 12:00:00 AM EDT [facility] Acyclovir 400 MG Oral Tablet 03/15/2021 12:00:00 AM EDT [facility] Codeine Phosphate 2 MG/ML / Guaifenesin 20 MG/ML Oral Solution 03/10/2021 10:15:31 AM EDT [facility] Hydromorphone Hydrochloride 2 MG Oral Tablet 03/02/2021 12:00:00 AM EDT [facility] Allopurinol 300 MG Oral Tablet 03/02/2021 12:00:00 AM EDT [facility] Acetaminophen 325 MG Oral Tablet 03/02/2021 12:00:00 AM EDT [facility] Prochlorperazine 10 MG Oral Tablet 03/01/2021 12:00:00 AM EDT [facility] Sulfamethoxazole 800 MG / Trimethoprim 160 MG Oral Tab let 03/01/2021 12:00:00 AM EDT [facility] POLYETHYLENE GLYCOL 3350 142 MG/ML Oral Solution 02/25/2021 09:07:3 3 AM EDT [facility] ondansetron (ZOFRAN) injection 8 mg 02/25/2021 09:07:23 AM EDT [facility] Prochlorperazine 5 MG/ML Injectable Solution 02/24/2021 07:26:04 PM EDT [facility] Aspirin 81 MG Delayed Release Oral Tablet 01/17/2021 12:00:00 AM ED T [place] ([facility]) Ergocalciferol [id number] UNT Oral Capsule [Drisdol] 01/17/2021 12:00:00 AM EDT [facility]) Hydrochlorothiazide 25 MG Oral Tablet 01/17/2021 12:00:00 AM EDT [place] ([facility]) [place]-3 Acid Ethyl Esters (ASSISTED) 1000 MG Oral Capsule [ Lovaza] 01/17/2021 12:00:00 AM EDT [place] ([facility]) Omeprazole 20 MG Delayed Release Oral Capsule 01/17/2021 12:00:00 A M EDT [place] ([facility]) Simvastatin 20 MG Oral Tablet 01/17/2021 12:00:00 AM EDT [facility]) Metoprolol Tartrate 25 MG Oral Tablet 01/17/2021 12:00:00 AM T [place] ([facility]) Vitamin C Plus 500 MG Oral Tablet 01/17/2021 12:00:00 AM EDT [facility]) Cephalexin 500 MG Oral Tablet 01/17/2021 12:00:00 AM [facility] ([facility]) Fluticasone Propionate 50 MCG/ACT Nasal Suspension 12/29/2020 12 :00:00 AM [facility] ([facility]) Aspirin 81 MG Delayed Release Oral Tablet 10/19/2020 12:00:00 AM [facility] ([facility]) Hydrochlorothiazide 25 MG Oral Tablet 10/19/2020 12:00:00 AM [facility]) Omeprazole 20 MG Delayed Release Oral Capsule 10/19/2020 12:00:00 A [facility] ([facility]) [place]-3 Acid Ethyl Esters (ASSISTED) 1000 MG Oral Capsule [ Lovaza] 10/19/2020 12:00:00 AM [facility]) Simvastatin 20 MG Oral Tablet 10/19/2020 12:00:00 AM [facility]) Ergocalciferol [id number] UNT Oral Capsule [Drisdol] 10/19/2020 12:00:00 AM [facility]) Metoprolol Tartrate 25 MG Oral Tablet 10/19/2020 12:00:00 AM [facility]) Vitamin C Plus 500 MG Oral Tablet 10/19/2020 12:00:00 AM [facility]) Vitamin C Plus 500 MG Oral Tablet 07/19/2020 12:00:00 AM [facility]) Aspirin 81 MG Delayed Release Oral Tablet 07/19/2020 12:00:00 AM [facility] ([facility]) Hydrochlorothiazide 25 MG Oral Tablet 07/19/2020 12:00:00 AM [facility]) [place]-3 Acid Ethyl Esters (ASSISTED) 1000 MG Oral Capsule [ Lovaza] 07/19/2020 12:00:00 AM [facility] ([facility]) Metoprolol Tartrate 25 MG Oral Tablet 07/19/2020 12:00:00 AM [facility]) Omeprazole 20 MG Delayed Release Oral Capsule 07/19/2020 12:00:00 A M [facility] ([facility]) Simvastatin 20 MG Oral Tablet 07/19/2020 12:00:00 AM [facility] ([facility]) Vitamin C Plus 500 MG Oral Tablet 07/19/2020 12:00:00 AM [facility] ([facility]) Clobetasol Propionate 0.0005 MG/MG Topical Ointment 04/19/20 12:00:00 AM [facility] ([facility]) Simvastatin 20 MG Oral Tablet 03/08/2020 12:00:00 AM [facility] ([facility]) Ascorbic Acid 500 MG/ML Injectable Solution 03/08/2020 12:00:00 AM [facility] ([facility]) Aspirin 81 MG Delayed Release Oral Tablet 03/08/2020 12:00:00 AM [facility] ([facility]) Ergocalciferol 19413 UNT Oral Capsule [Drisdol] 03/08/2020 12:00:00 AM [facility] ([facility]) Hydrochlorothiazide 25 MG Oral Tablet 03/08/2020 12:00:00 AM [facility] ([facility]) [place]-3 Acid Ethyl Esters (ASSISTED) 1000 MG Oral Capsule [ [place]] 03/08/2020 12:00:00 AM [facility] ([facility]) Metoprolol Tartrate 25 MG Oral Tablet 03/08/2020 12:00:00 AM [facility] ([facility]) Omeprazole 20 MG Delayed Release Oral Capsule 03/08/2020 12:00:00 A M [facility] ([facility]) Aspirin 81 MG Delayed Release Oral Tablet [facility] [place]-3 Acid Ethyl Esters (ASSISTED) 1000 MG Oral Capsule [facility] Docusate Sodium 100 MG Oral Capsule [facility] Aspirin 81 MG Chewable Tablet [facility] Hydrochlorothiazide 25 MG Oral Tablet [facility] Promethazine Hydrochloride 25 MG Rectal Suppository [facility] Acetaminophen 325 MG / Oxycodone Hydrochloride 5 MG Oral Tablet [facility]
--- NOTE | 2021-07-26 19:11 | HPEPDOC ---
General Date of Admission July 26, 2021 Date of Service: Jul 26, 2021 Chief Complaint The patient is a 76-year-old female admitted with a reason for visit of Abnormal Labs. History of Present Illness Mrs. Castaneda is a 76 year old female with diffuse large B-cell lymphoma receiving chemotherapy who is here for routine labs and found to have hypokalemia and elevated troponins. Patient was recently admitted to [facility] for sepsis, neutropenic fever, and pancytopenia on July 16, 2021. While there she was found to have a pneumonia which she is still currently on antibiotics. She does not know the names of antibiotics. She also had pancytopenia. They gave her 3 units of blood and 2 units of platelets. They were not able to improve the platelet count. Patient was discharged on July 24, 2021. Today, she had routine labs and her oncologist told her to go to the ED for low potassium. While here, her potassium was found at 2.9. She was given 40 mEq of p.o. potassium and 10 mEq of IV potassium. Otherwise, on EKG, she had new inverted T waves. Troponins x2 were obtained. Initial troponin was 0.21 and secondary troponin was 0.20. ED provider contacted cardiology, Dr. Berry. Since troponin did not increase, he did not recommend any further work-up. Only recommended improving potassium. Patient denies any chest pain, shortness of breath, nausea, or abdominal pain. She tells me that she had heart failure while at [facility] and she was scared because her mother had of heart failure. Looking through the chart, her EF was mildly decreased at 45% to 50%. Patient will be placed in observation for hypokalemia and elevated troponin. Home Medications Scheduled Ergocalciferol (Vitamin D2) (Vitamin D2) 50,000 Units Cap, 50,000 UNITS PO QMONTH, (Reported) 1ST OF THE MONTH Mirtazapine (Remeron) 30 Mg Tablet, 30 MG PO QHS, (Reported) [place]-3 Acid Ethyl Esters ([place]-3 Acid Ethyl Esters) 1 Gm Capsule, 1 GM PO DAILY, (Reported) Omeprazole (Omeprazole) 20 Mg Capsule.dr, 20 MG PO 4XWK, (Reported) MON,WED,FRI,SAT Pregabalin (Lyrica) 75 Mg Capsule, 75 MG PO BID, (Reported) Simvastatin (Simvastatin) 20 Mg Tab, 20 MG PO QHS, (Reported) Scheduled PRN Acetaminophen (Acetaminophen) 325 Mg Tablet, 650 MG PO Q4H PRN for PAIN LEVEL 1- 5, (Reported) Docusate Sodium (Stool Softener) 100 Mg Capsule, 100 MG PO BID PRN for CONSTIPATION, (Reported) Lidocaine HCl (Lidocaine HCl Viscous) 100 Ml Solution, 5 ML SSP ASDIRECTED PRN for MOUTH SORES, (Reported) Prochlorperazine Maleate (Prochlorperazine Maleate) 10 Mg Tablet, 10 MG PO Q6H PRN for NAUSEA OR VOMITING, (Reported) Miscellaneous Medications Acyclovir (Acyclovir) 400 Mg Tablet, (Reported) Ciprofloxacin HCl (Ciprofloxacin HCl) 500 Mg Tablet, (Reported) Furosemide (Furosemide) 20 Mg Tablet, (Reported) Metoprolol Succinate (Metoprolol Succinate) 50 Mg Tab.er.24h, (Reported) Metronidazole (Metronidazole) 500 Mg Tablet, (Reported) Nystatin (Nystatin Oral Susp) 100,000 Unit/1 Ml Oral.susp, (Reported) Prednisone (Prednisone) 10 Mg Tablet, (Reported) Allergies Coded Allergies: Penicillins (Verified Allergy, Intermediate, RASH, 02/13/21) Past Medical History Medical History 1. 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 Breast cancer status post bilateral mastectomies in remission 3. Essential hypertension 4. Chronic CAD status post CABG x3 5. Carotid artery disease status post bilateral carotid endarterectomies 6. Dyslipidemia 7. IVANA 8. Pulmonary fibrosis 9. Nephrolithiasis status post cystoscopy with right ureteroscopy and basket extraction of stone and right ureteral stent 10. Heart failure with mildly depressed ejection fraction of 45 to 50% at [facility] on 07/16/2021 Surgical History 1. Bilateral mastectomies 2. CABG x3 3. Bilateral carotid endarterectomies 4. Resection of tubular adenoma of the colon 5. Cystoscopy with right uroscopy with basket extraction of stone and right ureteral stent Family History Father: History of brain tumor and stroke Mother: History of CHF Social History * Smoker: Denies Alcohol: Denies Drugs: denies A-FIB/CHADSVASC A-FIB History Current/History of A-Fib/PAF?: No Review of Systems Constitutional: Denies: Chills, Fever Eyes: Denies: Vision change ENT: Denies: Sore Throat Skin: Denies: Rash Pulmonary: Denies: Dyspnea, Cough Cardiovascular: Denies: Chest Pain Gastrointestinal: Denies: Nausea, Abdominal Pain, Diarrhea Genitourinary: Denies: Dysuria Hematologic: Denies: Bruising Neurological: Denies: Numbness Psych: Denies: Anxiety, Depression Physical Examination General Exam: Positive: Alert, Cooperative Eye Exam: Positive: EOMI; Negative: Sclera icteric ENT Exam: Positive: Atraumatic Neck Exam: Positive: Supple Chest Exam: Positive: Clear to auscultation; Negative: Rales, Rhonchi, Wheezing Heart Exam: Positive: Rate Normal, Regular Rhythm Abdomen Exam: Positive: Normal bowel sounds, Soft; Negative: Tenderness Extremity Exam: Negative: Edema Neuro Exam: Positive: Normal Speech, Cranial Nerves 3-12 NL Psych Exam: Positive: Mental status NL, Mood NL Vital Signs Vital Signs Date Time Temp Pulse Resp B/P (MAP) Pulse Ox O2 Delivery O2 Flow Rate FiO2 07/26/21 16:14 97.7 73 18 124/65 (84) 96 Room Air Laboratory Data Labs 24H Laboratory Tests 2 07/26/21 10:43: Total Creatine Kinase 44, Creatine Kinase MB 2.1, Creatine Kinase MB Relative Index 4.77H 07/26/21 12:02: Immature Granulocyte % (Auto) 1.7, Neutrophils (%) (Auto) 91.8H, Lymphocytes (%) (Auto) 2.2L, Monocytes (%) (Auto) 4.1, Eosinophils (%) (Auto) 0.0, Basophils (%) (Auto) 0.2, Neutrophils # (Auto) 8.5, Lymphocytes # (Auto) 0.2L, Monocytes # (Auto) 0.4, Eosinophils # (Auto) 0.0, Basophils # (Auto) 0.0, Nucleated Red Blood Cells % (auto) 0.2H, Immature Platelet Fraction 13.8H, Prothrombin Time 13.1, Prothromb Time International Ratio 0.95, Activated Partial Thromboplast Time 22.0L, Anion Gap 7L, Glomerular Filtration Rate > 60.0, Calcium Level 8.5L, Magnesium Level 2.0 07/26/21 12:57: POC Troponin I (Misc) 0.21H 07/26/21 15:22: Total Creatine Kinase 35, Creatine Kinase MB 2.0, Creatine Kinase MB Relative Index 5.71H 07/26/21 15:25: POC Troponin I (Misc) 0.20H CBC/BMP Laboratory Tests 07/26/21 12:02 07/26/21 15:22 Assessment/Plan Mrs. Castaneda is a 76 year old female with diffuse large B-cell lymphoma receiving chemotherapy who is here for routine labs and found to have hypokalemia and elevated troponins. At this time, med rec has not been completed. Assuming the meds on patient's current med rec that has not been confirmed. Patient's hypokalemia may be secondary to furosemide. Patient told me she had heart failure at [facility]. Patient may have had developed hypokalemia from diuretics. Will hold diuretics at this time. EF is only mildly depressed at 45 to 50% and heart failure there may have been secondary to the blood and platelet transfusions. Unclear if she is still needs the diuretic. Otherwise, patient is without any symptoms of ACS. Troponins have plateaued. Monitor on telemetry. Plan / VTE VTE Prophylaxis Ordered?: Yes Plan Plan Of note, med rec has not been completed at this time. Assessment plan will be based off of un reconciled med rec 1. Hypokalemia Suspected to be secondary to furosemide Patient's heart failure at [place] may have been iatrogenic from blood and platelet transfusions EF there was 45 to 50% Hold diuretic Monitor potassium 2. Elevated troponin May be residual from hospitalization at [facility] No chest pain, shortness of breath, abdominal pain, or nausea Troponin plateaued Unlikely ACS 3. Recent hospitalization at [facility] While there, patient was started on prednisone taper, metoprolol sucicnate, ciprofloxacin, metronidazole, and nystatin -Will continue these medications 4. Chronic pain -Continue pregabalin 5. Large diffuse B-cell lymphoma -Continue acyclovir prophylaxis -Patient should follow up with her heme/onc provider outpatient 6. Thrombocytopenia -Patient should follow up with her heme/onc provider outpatient 7. DVT ppx -TEDs Disposition: If potassium is improved tomorrow, she may be able to go home tomorrow ADOLFO DIANA DO Jul 26, 2021 19:11
[2021-07-26] MEDS ORDERED: FENO160T10 PO (19:17)
[2021-07-26] MEDS ORDERED: LIDO2SOL17 PO (19:17)
[2021-07-26] MEDS ORDERED: ONDA4TAB6 PO (19:17)
[2021-07-26] MEDS ORDERED: SENN1TAB41 PO (19:17)
[2021-07-26] MEDS ORDERED: HOME MED LIST COMPLETE! XX SCH (19:20)
[2021-07-26] MEDS: CIPROFLOXACIN 500MG TABLET PO SCH (19:43)
[2021-07-26] MEDS ORDERED: SIMVASTATIN 20 MG TAB PO SCH (21:00)
[2021-07-26] MEDS: metroNIDAZOLE (FLAGYL) 500MG TABLET PO SCH (21:01)
[2021-07-26] MEDS: PREGABALIN 75 MG CAP(LYRICA) PO SCH (21:03)
[2021-07-26] MEDS: ACYCLOVIR 200 MG CAPSULE PO SCH (21:03)
[2021-07-26 22:58] VITALS: BP 120/68
[2021-07-26] MEDS: NYSTATIN 500,000 U/5 ML SUSP UDC SS SCH (23:36)
[2021-07-27] MEDS: CIPROFLOXACIN 500MG TABLET PO SCH ×2 (05:17→16:45)
[2021-07-27 06:00] VITALS: BP 131/72
[2021-07-27] MEDS: ACYCLOVIR 200 MG CAPSULE PO SCH (08:36)
[2021-07-27] MEDS: metroNIDAZOLE (FLAGYL) 500MG TABLET PO SCH (08:36)
[2021-07-27] MEDS: PREGABALIN 75 MG CAP(LYRICA) PO SCH (08:36)
[2021-07-27] MEDS: NYSTATIN 500,000 U/5 ML SUSP UDC SS SCH ×3 (08:36→16:45)
[2021-07-27 08:37] VITALS: BP 125/68
[2021-07-27] MEDS ORDERED: ENOXAPARIN 40MG/0.4ML SYRINGE (J1650 PER 10MG) SC SCH (09:00)
[2021-07-27] MEDS ORDERED: METOPROLOL SUCC (TopROL XL) 50MG **XL** TAB PO SCH (09:00)
[2021-07-27] MEDS ORDERED: predniSONE 10 MG TAB PO SCH (09:00)
[2021-07-27 09:59] LABS: HEMATOCRIT 24.1 % (36.0-47.0); HEMOGLOBIN 7.6 g/dl (12.0-15.5); MEAN CORPUSCULAR HEMOGLOBIN 32.6 pg (27.0-33.0); MEAN CORPUSCULAR HGB CONC 31.5 g/dl (32.0-36.5); MEAN CORPUSCULAR VOLUME 103.4 fl (80.0-96.0); PLATELET COUNT, AUTOMATED 27 10^3/uL (150-450); RED BLOOD COUNT 2.33 10^6/uL (4.00-5.40); WHITE BLOOD COUNT 4.7 10^3/uL (4.0-10.0)
[2021-07-27 10:41] LABS: BLOOD UREA NITROGEN 15 MG/DL (7-18); CALCIUM LEVEL 8.7 MG/DL (8.8-10.2); CARBON DIOXIDE LEVEL 31 MEQ/L (21-32); CHLORIDE LEVEL 111 MEQ/L (98-107); CREATININE FOR GFR 0.53 MG/DL (0.55-1.30); GLOMERULAR FILTRATION RATE > 60.0 (>39); GLUCOSE, FASTING 97 MG/DL (70-100); POTASSIUM SERUM 2.9 MEQ/L (3.5-5.1); SODIUM LEVEL 146 MEQ/L (136-145)
[2021-07-27] MEDS ORDERED: POTASSIUM CHLORIDE 10MEQ SR TABLET PO ONE ×2 (11:00→14:00)
[2021-07-27 12:32] LABS: FERRITIN 2212 NG/ML (8-252); IRON (FE) 149 UG/DL (50-170); LDH LACTATE DEHYDROGENASE 359 U/L (84-246); MAGNESIUM LEVEL 1.8 MG/DL (1.8-2.4); TOTAL IRON BINDING CAPACITY 210 UG/DL (250-450)
[2021-07-27 13:29] LABS: HEMATOCRIT 25.5 % (36.0-47.0); HEMOGLOBIN 8.1 g/dl (12.0-15.5); MEAN CORPUSCULAR HEMOGLOBIN 32.8 pg (27.0-33.0); MEAN CORPUSCULAR HGB CONC 31.8 g/dl (32.0-36.5); MEAN CORPUSCULAR VOLUME 103.2 fl (80.0-96.0); RED BLOOD COUNT 2.47 10^6/uL (4.00-5.40); WHITE BLOOD COUNT 6.9 10^3/uL (4.0-10.0)
[2021-07-27 13:32] LABS: PLATELET COUNT, AUTOMATED 30 10^3/uL (150-450)
[2021-07-27 14:00] VITALS: BP 100/62
[2021-07-27] MEDS ORDERED: POTA20TA6 PO (16:29)
--- NOTE | 2021-07-27 20:17 | ECGEPIP ---
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
--- NOTE | 2021-07-27 20:23 | ECGEPIP ---
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
--- NOTE | 2021-07-27 23:17 | DS.PDOC ---
Discharge Summary General Date of Admission Jul 26, 2021 at 10:44 Date of Discharge Jul 27, 2021 Discharge Summary PROCEDURES PERFORMED DURING STAY: None ADMITTING DIAGNOSES: 1. Hypokalemia 2. Elevated troponin 3. Chronic pain 4. Large diffuse B-cell lymphoma 5. Thrombocytopenia DISCHARGE DIAGNOSES: 1. Hypokalemia 2. Elevated troponin 3. Chronic pain 4. Large diffuse B-cell lymphoma 5. Thrombocytopenia COMPLICATIONS/CHIEF COMPLAINT: Hypokalemia. HISTORY OF PRESENT ILLNESS: Mrs. Castaneda is a 76 year old female with diffuse large B-cell lymphoma receiving chemotherapy who is here for routine labs and found to have hypokalemia and elevated troponins. Patient was recently admitted to [facility] for sepsis, neutropenic fever, and pancytopenia on July 16, 2021. While there she was found to have a pneumonia which she is still currently on antibiotics. She does not know the names of antibiotics. She also had pancytopenia. They gave her 3 units of blood and 2 units of platelets. They were not able to improve the platelet count. Patient was discharged on July 24, 2021. Today, she had routine labs and her oncologist told her to go to the ED for low potassium. While here, her potassium was found at 2.9. She was given 40 mEq of p.o. potassium and 10 mEq of IV potassium. Otherwise, on EKG, she had new inverted T waves. Troponins x2 were obtained. Initial troponin was 0.21 and secondary troponin was 0.20. ED provider contacted cardiology, Dr. Berry. Since troponin did not increase, he did not recommend any further work-up. Only recommended improving potassium. Patient denies any chest pain, shortness of breath, nausea, or abdominal pain. She tells me that she had heart failure while at [facility] and she was scared because her mother had of heart failure. Looking through the chart, her EF was mildly decreased at 45% to 50%. Patient will be placed in observation for hypokalemia and elevated troponin. HOSPITAL COURSE: Patient's hypokalemia is most likely related to furosemide. I suspect that at [facility], patient had iatrogenic fluid overload from the multiple transfusions. She may not need furosemide chronically. I discontinued furosemide. There was no significant events on telemetry overnight. In the morning, patient hemoglobin slightly dropped and her potassium dropped from 3.5 to 2.9. Patient felt well and was hoping to go home today. Repeat hemoglobin increased back up to 8.1. Patient was given KCL 40mEq x2. Potassium in the afternoon was 4.1. Patient was discharged home with Kcl 20mEq qD for 3 days and a lab slip for CBC and BMP. DISCHARGE MEDICATIONS: Please see below. ALLERGIES: Please see below. PHYSICAL EXAMINATION ON DISCHARGE: VITAL SIGNS: Please see below. GENERAL: Comfortable, in no apparent distress. HEENT: EOMI, sclera clear. NECK: Supple. RESPIRATORY: Lungs clear to auscultation bilaterally, no rales, wheeze or rhonchi. CARDIOVASCULAR: Regular rate and rhythm. ABDOMEN: Soft, nontender, no guarding or rebound tenderness. Normal bowel sounds. MUSCLE SKELETAL: No pitting edema PSYCHOLOGICAL: Normal mood and affect LABORATORY DATA: Please see below. IMAGING: None PROGNOSIS: Good ACTIVITY: As tolerated. DIET: As tolerated DISCHARGE PLAN: Return home with home health services. Stop furosemide. Take potassium 20mEq daily for 3 days. Have labs done in 3 days. DISPOSITION: Home Health Service. DISCHARGE INSTRUCTIONS: 1. Follow up with PCP within 7 days. ITEMS TO FOLLOWUP ON ON OUTPATIENT: 1. Potassium 2. Anemia 3. Thrombocytopenia DISCHARGE CONDITION: Stable. Total time spent on discharge planning, discharge summary, and medication reconciliation: 28 minutes Vital Signs/I&Os Vital Signs Date Time Temp Pulse Resp B/P (MAP) Pulse Ox O2 Delivery O2 Flow Rate FiO2 07/27/21 14:00 97.6 75 18 100/62 (75) 93 Room Air I&O- Last 24 Hours up to 6 AM 07/27/21 06:00 Intake Total 100 ml Output Total 200 ml Balance -100 ml Laboratory Data Labs 24H Laboratory Tests 2 07/27/21 09:42: Nucleated Red Blood Cells % (auto) 0.6H, Anion Gap 4L, Glomerular Filtration Rate > 60.0, Calcium Level 8.7L, Magnesium Level 1.8, Iron Level 149, Total Iron Binding Capacity 210L, Transferrin % Saturation 71.0H, Ferritin 2212H, Lactate Dehydrogenase 359H 07/27/21 13:10: Nucleated Red Blood Cells % (auto) 0.3H, Reticulocyte # (auto) 152.6H, Immature Platelet Fraction 13.5H, Percent Reticulocyte Count 6.2H, Reticulocyte Hemoglobin Equivalent 43.9H 07/27/21 13:43: Lab Scanned Report Miscellaneous Lab CBC/BMP Laboratory Tests 07/27/21 09:42 07/27/21 13:10 07/27/21 15:41 Microbiology Microbiology 07/26/21 Respiratory Virus Panel (PCR) ([facility]UCIA) - Final, Complete Discharge Medications Scheduled Acyclovir (Acyclovir) 400 Mg Tablet, 400 MG PO BID, (Reported) Ciprofloxacin HCl (Ciprofloxacin HCl) 500 Mg Tablet, 500 MG PO BID, (Reported) FOR 5 DAYS, STARTED 07/24 Ergocalciferol (Vitamin D2) (Vitamin D2) 50,000 Units Cap, 50,000 UNITS PO QMONTH, (Reported) 1ST OF THE MONTH Fenofibrate (Fenofibrate) 160 Mg Tablet, 160 MG PO DAILY, (Reported) Metoprolol Succinate (Metoprolol Succinate) 50 Mg Tab.er.24h, 50 MG PO DAILY, (Reported) Metronidazole (Metronidazole) 500 Mg Tablet, 500 MG PO BID, (Reported) FOR 5 DAYS, STARTED 07/24 Nystatin (Nystatin Oral Susp) 100,000 Unit/1 Ml Oral.susp, 5 ML PO QID, (Reported) FOR 4 DAYS, START 07/24 Omeprazole (Omeprazole) 20 Mg Capsule.dr, 20 MG PO DAILY, (Reported) Potassium Chloride (Potassium Chloride) 20 Meq Tab.er.prt, 1 TAB PO DAILY Prednisone (Prednisone) 10 Mg Tablet, 10 MG PO TAPER, (Reported) 40MG DAILY X 2 DAYS 30MG DAILY X 2 DAYS 20MG DAILY X 2 DAYS 10MG DAILY X 2 DAYS START 07/25 Pregabalin (Lyrica) 75 Mg Capsule, 75 MG PO BID, (Reported) Sennosides/Docusate Sodium ([place]-S Tablet) 1 Each Tablet, 2 TAB PO QHS, (Reported) Simvastatin (Simvastatin) 20 Mg Tab, 20 MG PO QHS, (Reported) Scheduled PRN Acetaminophen (Acetaminophen) 325 Mg Tablet, 650 MG PO Q4H PRN for PAIN LEVEL 1- 5, (Reported) Lidocaine HCl (Lidocaine HCl Viscous) 100 Ml Solution, 5 ML SSP ASDIRECTED PRN for MOUTH SORES, (Reported) Lidocaine HCl (Lidocaine HCl Viscous) 15 Ml Solution, 5 ML PO TID PRN for PAIN LEVEL 1-4, (Reported) Ondansetron (Ondansetron Odt) 4 Mg Tab.rapdis, 4 MG PO Q6H PRN for NAUSEA OR VOMITING, (Reported) Allergies Coded Allergies: Penicillins (Verified Allergy, Intermediate, RASH, 02/13/21) ADOLFO DIANA DO Jul 27, 2021 23:16
[2021-08-08] MEDS ORDERED: ALEN70TA82 (15:46)
== END 2021-07-27 17:30 | disposition home health service (06) ==
LOC: M ED 10:43 → M ED INP 10:44 → M MSPAV 22:58
PROVIDERS: ADMIT Internal Medicine; ATTEND Internal Medicine
DX: E87.6 Hypokalemia (principal); R79.89 Other specified abnormal findings of blood chemistry; G89.29 Other chronic pain; C83.30 Diffuse large B-cell lymphoma, unspecified site; D69.6 Thrombocytopenia, unspecified; Z79.899 Other long term (current) drug therapy; Z88.0 Allergy status to penicillin; Z85.3 Personal history of malignant neoplasm of breast; I10 Essential (primary) hypertension; I25.10 Atherosclerotic heart disease of native coronary artery without angina pectoris; E78.5 Hyperlipidemia, unspecified; Z95.1 Presence of aortocoronary bypass graft; G47.33 Obstructive sleep apnea (adult) (pediatric); I50.9 Heart failure, unspecified
CPT/HCPCS: 36415; 80048; 82553; 82728; 83550; 83615; 83735; 84132; 84484; 85025; 85027; 85046; 85049; 85055; 85610; 85730; 86850; 86900; 86901; 87798; 93005; 93041; 94760; 96365; 99285; G0378; J3480; J7512

== ENCOUNTER → 2021-08-08 | Outpatient (CLI) | payer MEDICARE, BC, OTHER ==
[~2021-08-08] MED LIST changes: +ACYC1TAB PO; +ALEN70TA82; +CIPR500T39 PO; +FENO160T10 PO; +FURO20TA2 PO; +LIDO2SOL17 PO; +METO1TAB7 PO; +METR-265 PO; +NYST50SS PO; +POTA20TA6 PO; +PRED10TA2 PO; +SENN1TAB41 PO
--- NOTE | 2021-08-08 16:14 | RADONC ---
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 She is s/p chemotherapy 2 cycles of R-EPOCH 02/25/21-03/28/13 c/b neutropenia and infection, then 4 cycles of R-CHOP 04/24/21-06/06/21. She also had IT methotrexate 4 cycles given 04/07/21-07/05/21. Her course was complicated by chemo-induced NSTEMI, as well as admissions for neutropenia and infection, and pancytopenia. Interim PET-CT after cycle 3 on 05/05/21 showed DS4. End of chemotherapy PET-CT on 07/31/21 showed DS1. She is seen for consideration of consolidative ISRT. Diagnosis/Treatment History Oncologic History As above Interval History Beatriz reports that she is only now starting to regain strength and energy following chemotherapy. She reports her last cycle of R-CHOP was complicated by a heart attack and that she has been diagnosed with CHF. She has established with cardiology and at present feels her breathing and extremity swelling is back to pre-admission baseline. She is eating and drinking without difficulty. Weight is down recently. She sometimes has fleeting pains in the face which worry her. Current Therapy ISRT pending Stage DLBCL double hit stage II bulky Social History: Former 20 pack year smoker quit remotely Non drinker Allergies / Meds Allergies: Coded Allergies: Penicillins (Verified Allergy, Intermediate, RASH, 02/13/21) Home Meds Active Scripts Potassium Chloride (Potassium Chloride) 20 Meq Tab.er.prt, 1 TAB PO DAILY for 3 Days, #3 TAB Prov:ADOLFO DIANA DO 07/27/21 Reported Medications Sennosides/Docusate Sodium (Senna-S Tablet) 1 Each Tablet, 2 TAB PO QHS 07/26/21 Ondansetron (Ondansetron Odt) 4 Mg Tab.rapdis, 4 MG PO Q6H PRN for NAUSEA OR VOMITING 07/26/21 Lidocaine HCl (Lidocaine HCl Viscous) 15 Ml Solution, 5 ML PO TID PRN for PAIN LEVEL 1-4 07/26/21 Fenofibrate (Fenofibrate) 160 Mg Tablet, 160 MG PO DAILY, TAB 07/26/21 Acyclovir (Acyclovir) 400 Mg Tablet, 400 MG PO BID 07/26/21 Metoprolol Succinate (Metoprolol Succinate) 50 Mg Tab.er.24h, 50 MG PO DAILY 07/26/21 Metronidazole (Metronidazole) 500 Mg Tablet, 500 MG PO BID FOR 5 DAYS, STARTED 07/2407/26/21 Nystatin (Nystatin Oral Susp) 100,000 Unit/1 Ml Oral.susp, 5 ML PO QID FOR 4 DAYS, START 07/2407/26/21 Ciprofloxacin HCl (Ciprofloxacin HCl) 500 Mg Tablet, 500 MG PO BID FOR 5 DAYS, STARTED 07/2407/26/21 Prednisone (Prednisone) 10 Mg Tablet, 10 MG PO TAPER 40MG DAILY X 2 DAYS 30MG DAILY X 2 DAYS 20MG DAILY X 2 DAYS 10MG DAILY X 2 DAYS START 07/2507/26/21 Acetaminophen (Acetaminophen) 325 Mg Tablet, 650 MG PO Q4H PRN for PAIN LEVEL 1- 5 04/09/21 Lidocaine HCl (Lidocaine HCl Viscous) 100 Ml Solution, 5 ML SSP ASDIRECTED PRN for MOUTH SORES 04/09/21 Omeprazole (Omeprazole) 20 Mg Capsule.dr, 20 MG PO DAILY 04/09/21 Pregabalin (Lyrica) 75 Mg Capsule, 75 MG PO BID 04/09/21 Ergocalciferol (Vitamin D2) (Vitamin D2) 50,000 Units Cap, 01273 UNITS PO QMONTH, CAP 1ST OF THE MONTH 02/10/21 Simvastatin (Simvastatin) 20 Mg Tab, 20 MG PO QHS 02/21/18 Review of Systems Review of Systems Constitutional: Reports: Weakness, Fatigue, Weight Loss; Denies: Chills, Fever, Normal appetite Eyes: Denies: Pain HEENT: Reports: Sinus Congestion; Denies: Head Aches, Ear Pain, Dysphagia, Sore Throat Pulmonary: Denies: Dyspnea, Cough Cardiovascular: Denies: Chest Pain, Palpitations, Edema Gastrointestinal: Denies: Nausea, Abdominal Pain Hematologic: Denies: Enlarged Lymph Nodes Endocrine: Denies: Cold Intolerance Musculoskeletal: Denies: Neck pain, Back pain Neurological: Denies: Weakness, Numbness Psych: Reports: Mood Normal Physical Examination Vital Signs Wt 116 lbs T 95.9 P 57 RR 15 BP 116/68 O2 96% Pain 8 (low back chronic) Fatigue 5 General Exam: Alert, Cooperative, No Acute Distress Eye Exam: PERRLA, EOMI ENT EXAM: Atraumatic, Pharynx Normal, Other ENT (Deferred laryngoscopy today will perform in follow up) Neck Exam: Supple; Negative: Lymphadenopathy Chest Exam: Clear to auscultation, Normal air movement Heart Exam: Rate Normal, Regular Rhythm Extremity Exam: Negative: Edema Skin Exam: Other skin issue (P[place]or) Neuro Exam: Normal Gait, Normal Speech, Cranial Nerves 3-12 NL Psych Exam: Mental status NL Diagnostic and Laboratory Diagnostic Review Radiologic images, relevant labs and pathology reports were personally reviewed and discussed with Ms. Castaneda. Assessment and Plan Impression Assessment Ms. 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 She is s/p chemotherapy 2 cycles of R-EPOCH 02/25/21- 03/28/13 c/b neutropenia and infection, then 4 cycles of R-CHOP 04/24/21- 06/06/21. She also had IT methotrexate 4 cycles given 04/07/21-07/05/21. Her course was complicated by chemo-induced NSTEMI, as well as admissions for neutropenia and infection, and pancytopenia. Interim PET-CT after cycle 3 on 05/05/21 showed DS4. End of chemotherapy PET-CT on 07/31/21 showed DS1. She is seen for consideration of consolidative ISRT. She has completed chemotherapy and is in PET-CR. She did have significant difficulty with treatment from which she is recovering slowly. We discussed home nursing and nutritional support at length, she would like to think about these services before committing to them. In the meantime I encouraged her to supplement her calorie intake with ENSURE or BOOST. Some samples were provided for her to go home with. For treatment I recommend ISRT 30.6 Gy in 17 fractions as she fits the RICOVER- 60 paradigm and has very high risk disease, indeed any relapse would be terribly morbid given the location and her poor tolerance of first line therapy. I will use VMAT and daily CBCT to effectively spare her mucosal surfaces unnecessary dose. I utilize the ILROG ISRT guidelines for treatment planning, in her case the pre-chemotherapy CT (she was started on treatment urgently without initial PET-CT) shows the tumor involved the BL nasopharynx, extending posteriorly and inferiorly to the superior surface of the soft palate, anteriorly into the BL nasal passages, laterally into the right pterygopalatine fossa, inferolaterally encasing the right carotid artery, and then in the right neck caudad to the thoracic inlet. No mediastinal or left-sided cervical adenopathy were present at diagnosis. She should tolerate treatment well. We will proceed with simulation in the next 1-2 weeks to hopefully allow her additional time to recover strength and Hgb. I discussed that in follow up given her PET-CT I would follow her clinically with periodic nasopharyngoscopy in office. I would defer sectional imaging to Dr. Barnes. Performance Status ECOG 2 Plan ISRT 30.6 Gy in 17 fractions with VMAT and CBCT daily Simulation in 1-2 weeks Ms. Castaneda was encouraged to call with questions or concerns in the interim period. Billing Statement Total time of [42] minutes was spent preparing for the visit [3], obtaining HPI [7], examining the patient [4], reviewing diagnostic tests [5], discussing management options [15], coordinating care [1], and writing this note [7]. CHUY CHEEMA MD Aug 08, 2021 16:14
== END ==
LOC: M ONCR 14:24
PROVIDERS: ATTEND General Practice
DX: 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, lymph nodes of head, face, and neck (principal); Z85.3 Personal history of malignant neoplasm of breast; Z92.3 Personal history of irradiation; Z92.21 Personal history of antineoplastic chemotherapy; Z87.891 Personal history of nicotine dependence; Z88.0 Allergy status to penicillin; Z79.899 Other long term (current) drug therapy

== ENCOUNTER 2021-08-17 13:54 | Outpatient (RCR) | payer MEDICARE, BC, OTHER | END 2021-08-25 | LOC: M ONCR 13:54 | PROVIDERS: ATTEND General Practice | DX: 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, lymph nodes of head, face, and neck (principal) ==

== ENCOUNTER → 2021-09-25 | Outpatient (RCR) | payer MEDICARE, BC, OTHER ==
[~2021-09-25] MED LIST changes: +LIDVISCBTL PO; +OMEP-173 PO; -OMEP-218 PO; +POTA-151 PO; -POTA20TA6 PO; -PROC10TA4 PO; +PROC10TA5 PO
== END ==
LOC: M ONCR 09-12 15:12
PROVIDERS: ATTEND General Practice
DX: 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, lymph nodes of head, face, and neck (principal)

== ENCOUNTER 2021-10-04 15:17 | Outpatient (RCR) | payer MEDICARE, BC, OTHER ==
[2021-10-12] MEDS ORDERED: POTA10CA32 PO (15:00)
== END 2021-10-23 ==
LOC: M ONCR 15:17
PROVIDERS: ATTEND General Practice
DX: 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, lymph nodes of head, face, and neck (principal)

== ENCOUNTER → 2021-10-27 | Outpatient (CLI) | payer MEDICARE, BC, OTHER ==
[~2021-10-27] MED LIST changes: +ISOVUE-370 76% 100ML VIAL ONE; +POTA10CA32 PO
== END ==
LOC: M PLAIMG 13:27
PROVIDERS: ATTEND Internal Medicine Hematology & Oncology
DX: 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, lymph nodes of head, face, and neck (principal); J44.9 Chronic obstructive pulmonary disease, unspecified
CPT/HCPCS: 71275; Q9967

== ENCOUNTER → 2021-11-02 | Outpatient (CLI) | payer MEDICARE, BC, OTHER ==
[~2021-11-02] MED LIST changes: -ISOVUE-370 76% 100ML VIAL ONE; +METO10TA2 PO; +MIRT1TAB16 PO
== END ==
LOC: M ONCR 09:03
PROVIDERS: ATTEND General Practice
DX: 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, lymph nodes of head, face, and neck (principal); R62.7 Adult failure to thrive; K59.00 Constipation, unspecified; R68.2 Dry mouth, unspecified; R68.81 Early satiety; Z92.21 Personal history of antineoplastic chemotherapy; Z92.3 Personal history of irradiation

== ENCOUNTER → 2021-11-09 | Outpatient (CLI) | payer MEDICARE, BC, OTHER | LOC: M ONCR 09:08 | PROVIDERS: ATTEND General Practice | DX: 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, lymph nodes of head, face, and neck (principal); R13.10 Dysphagia, unspecified ==

== ENCOUNTER → 2021-11-30 | Outpatient (CLI) | payer MEDICARE, BC, OTHER | LOC: M ONCR 08:52 | PROVIDERS: ATTEND General Practice | DX: 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, lymph nodes of head, face, and neck (principal); Z92.3 Personal history of irradiation ==

== ENCOUNTER → 2022-01-17 | Outpatient (CLI) | payer MEDICARE, BC, OTHER ==
[2022-01-17 16:36] LABS: FREE T4 0.8 NG/DL (0.76-1.46); THYROID STIMULATING HORMONE 1.85 uIU/ML (0.358-3.740)
== END ==
LOC: M ONCR 14:25
PROVIDERS: ATTEND General Practice
DX: 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, lymph nodes of head, face, and neck (principal); Z79.899 Other long term (current) drug therapy; Z87.891 Personal history of nicotine dependence; Z88.0 Allergy status to penicillin; Z92.21 Personal history of antineoplastic chemotherapy; Z92.3 Personal history of irradiation
CPT/HCPCS: 31575; 36415; 84439; 84443; G0463

== ENCOUNTER → 2022-05-16 | Outpatient (CLI) | payer MEDICARE, BC, OTHER ==
[2022-05-16 16:36] LABS: FREE T4 0.93 NG/DL (0.76-1.46); THYROID STIMULATING HORMONE 1.29 uIU/ML (0.358-3.740)
== END ==
LOC: M ONCR 14:19
PROVIDERS: ATTEND General Practice
DX: 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, lymph nodes of head, face, and neck (principal); R59.0 Localized enlarged lymph nodes; Z79.899 Other long term (current) drug therapy; Z87.891 Personal history of nicotine dependence; Z88.0 Allergy status to penicillin; Z92.21 Personal history of antineoplastic chemotherapy; Z92.3 Personal history of irradiation
CPT/HCPCS: 31575; 84439; 84443; G0463

== ENCOUNTER → 2022-11-16 | Outpatient (CLI) | payer MEDICARE, BC, OTHER ==
[~2022-11-16] MED LIST changes: +LIDO15SO4 PO; -LIDO2SOL17 PO; +NYST-38 PO; -NYST50SS PO; -POTA10CA32 PO; +POTA10CA33 PO
== END ==
LOC: M ONCR 14:22
PROVIDERS: ATTEND General Practice
DX: 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, lymph nodes of head, face, and neck (principal); Z79.899 Other long term (current) drug therapy; Z87.891 Personal history of nicotine dependence; Z88.0 Allergy status to penicillin; Z92.21 Personal history of antineoplastic chemotherapy; Z92.3 Personal history of irradiation
CPT/HCPCS: 31575; G0463

== ENCOUNTER → 2023-11-22 | Outpatient (CLI) | payer MEDICARE, BC, OTHER ==
[~2023-11-22] MED LIST changes: -LIDO15SO4 PO; +LIDO15SO8 PO; -POTA10CA33 PO; +POTA10CA60 PO; -SENN1TAB41 PO; +SENN1TAB85 PO
== END ==
LOC: M ONCR 14:22
PROVIDERS: ATTEND General Practice
DX: Z08 Encounter for follow-up examination after completed treatment for malignant neoplasm (principal); Z85.72 Personal history of non-Hodgkin lymphomas; I25.2 Old myocardial infarction; R13.10 Dysphagia, unspecified; Z79.899 Other long term (current) drug therapy; Z87.891 Personal history of nicotine dependence; Z88.0 Allergy status to penicillin; Z92.21 Personal history of antineoplastic chemotherapy; Z92.3 Personal history of irradiation
CPT/HCPCS: 31575; G0463

== ENCOUNTER → 2024-11-24 | Outpatient (CLI) | payer MEDICARE, BC, OTHER ==
[~2024-11-24] MED LIST changes: -MIRT-60 PO; +MIRT-89 PO; +OMEG-28 PO; -OMEG1CAP85 PO; +ONDA-282 PO; -ONDA4TAB6 PO; -POTA10CA60 PO; +POTA10CA70 PO
== END ==
LOC: M ONCR 14:20
PROVIDERS: ATTEND General Practice
DX: 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, lymph nodes of head, face, and neck (principal); Z92.21 Personal history of antineoplastic chemotherapy; Z92.3 Personal history of irradiation; Z92.29 Personal history of other drug therapy; Z87.891 Personal history of nicotine dependence; Z88.0 Allergy status to penicillin; Z88.1 Allergy status to other antibiotic agents; Z79.899 Other long term (current) drug therapy
CPT/HCPCS: 31575; G0463